=== PATIENT | male | born 1945 | race Hispanic/Latino ===

== ENCOUNTER 2017-11-08 08:40 | Inpatient (IN) | payer OTHER ==
[2017-11-08 09:39] LABS: Protime INR 1.04
[2017-11-08 09:44] LABS: Potassium 5.3 mEq/L (3.6-5.0)
[2017-11-08 09:50] LABS: Albumin 2.6 g/dL (3.2-5.5); Bilirubin Direct 0.1 mg/dL (0-0.2); Bilirubin Total 0.5 mg/dL (0.3-1.2); Magnesium 2.2 mg/dL (1.8-2.5); Protein, Total 7.1 g/dL (6.0-8.3)
[2017-11-08 09:51] LABS: CKMB Creatine Kinase MB 3.5 ng/ml (0.3-4.0)
[2017-11-08 10:06] LABS: Absolute Lymphocytes (CBC) 0.5 K/uL (0.7-4.9); Absolute Monocytes 0.9 K/uL (0.1-1.3); Basophils % 0.5 % (0-1.3); Eosinophils % 2.2 % (0-4.4); Hematocrit 28.5 % (39.6-49.0); Lymphocytes % 5.4 % (15.3-44.8); MCH 25.7 pg (27.0-35.0); MCV 81.3 fL (80-100); Monocytes % 9.6 % (3.3-12.3); RBC Red Blood Cell Count 3.51 M/uL (4.33-5.43)
[2017-11-08] MEDS ORDERED: ASPIRIN 81 MG CHEWABLE TABLET ONE (10:24)
[2017-11-08] MEDS ORDERED: FUROSEMIDE 20 MG/ 2ML VIAL ONE ×2 (10:25→11:13)
[2017-11-08] MEDS ORDERED: NITROGLYCERIN 1 GM PKT TD ONE (10:25)
--- NOTE | 2017-11-08 10:42 | RAD REPORT ---
EXAM DESCRIPTION: RAD - Chest Single View - 11/08/2017 9:30 am CLINICAL HISTORY: Shortness of breath COMPARISON: 10/22/2015 FINDINGS: Portable technique limits examination quality. Soft tissue density along the right thoracic cage is probably related to right pleural fluid or right pleural thickening. Mild interstitial pulmonary edema seen. Heart is moderately enlarged in size.
[2017-11-08 10:45] LABS: MPV 8.3 fL (7.6-11.3)
[2017-11-08 10:46] LABS: Blood Morphology Comment NOT SEEN (NOT SEEN); Platelet Estimate ADEQ; Urine White Blood Cell Casts OK
--- NOTE | 2017-11-08 11:14 | ER ---
Nurse's Notes [facility] Name: Garth Lane Age: 72 yrs Sex: Male : 1945 Arrival Date: 11/08/2017 Time: 08:45 Bed 8 Private MD: Diagnosis: Acute kidney failure;Acute pulmonary edema Presentation: 11/08 08:46 Presenting complaint: Patient states: vomiting Tuesday, not feeling well. very tired, ch not hungry and gets sob and weak easily. Transition of care: patient was not received from another setting of care. Onset of symptoms was November 05, 2017. Care prior to arrival: None. 08:46 Method Of Arrival: Wheelchair ch 08:46 Acuity: MARIO 3 ch 09:00 Initial Sepsis Screen: Does the patient meet any 2 criteria? No. Patient's initial sg sepsis screen is negative. Does the patient have a suspected source of infection? No. Patient's initial sepsis screen is negative. Triage Assessment: 08:50 General: Appears in no apparent distress. comfortable, Behavior is calm, cooperative, ch appropriate for age. Pain: Denies pain. 09:00 Respiratory: Reports shortness of breath the patient has mild shortness of breath. sg 09:00 Respiratory: Onset: The symptoms/episode began/occurred gradually. sg Historical: - Allergies: 08:50 No Known Allergies; ch - Home Meds: 08:50 alendronate 35 mg oral tab once wkly [Active]; meloxicam 7.5 mg oral tab 1 tab once ch daily [Active]; pantoprazole 40 mg oral TbEC 1 tab once daily [Active]; - PMHx: 08:50 GERD; Hypertension; prostate cancer; remission now; punctured lung, fx hip, fx ribs, ch skull fx after fall 2011.; - PSHx: 08:50 prostate radiation, prostate sx-green light; Cholecystectomy; r hip; ch - Immunization history:: Adult Immunizations up to date, Flu vaccine is up to date. - Social history:: Smoking status: Patient/guardian denies using tobacco, Patient uses alcohol, occasionally. Patient/guardian denies using street drugs, Patient/guardian denies using alcohol. - Family history:: not pertinent. Screenin:00 Abuse screen: Denies threats or abuse. Denies injuries from another. Nutritional sg screening: No deficits noted. Tuberculosis screening: No symptoms or risk factors identified. Never had TB. Fall Risk None identified. Assessment: 09:00 General: Appears in no apparent distress. comfortable, well groomed, well developed, sg well nourished, Behavior is calm, cooperative, appropriate for age. Pain: Denies pain. Neuro: Level of Consciousness is awake, alert, obeys commands, Oriented to person, place, time, situation, Business Transformation Manager are equal bilaterally Moves all extremities. Speech is normal, Facial symmetry appears normal. Cardiovascular: Heart tones S1 S2 present Capillary refill is brisk in bilateral fingers Chest pain is denied. Cardiovascular: Edema noted to abdomen, face, and legs, and arms, possible anasarca. Respiratory: Airway is patent Respiratory effort is even, unlabored, Respiratory pattern is regular, symmetrical, Breath sounds are clear. GI: No signs and/or symptoms were reported involving the gastrointestinal system. : No signs and/or symptoms were reported regarding the genitourinary system. EENT: No signs and/or symptoms were reported regarding the EENT system. Derm: Skin is normal. Musculoskeletal: No signs and/or symptoms reported regarding the musculoskeletal system. 09:00 Cardiovascular: Rhythm is sinus rhythm. sg 10:00 Reassessment: Patient appears in no apparent distress at this time. Patient and/or sg family updated on plan of care and expected duration. Pain level reassessed. Patient is alert, oriented x 3, equal unlabored respirations, skin warm/dry/pink. Respiratory: Reports shortness of breath at rest Airway is patent Respiratory effort is even, unlabored, Respiratory pattern is regular, symmetrical. Derm: Skin is normal. 11:00 Reassessment: Patient appears in no apparent distress at this time. No changes from sg previously documented assessment. Patient and/or family updated on plan of care and expected duration. Pain level reassessed. Patient is alert, oriented x 3, equal unlabored respirations, skin warm/dry/pink. 12:00 Reassessment: Patient appears in no apparent distress at this time. Patient and/or sg family updated on plan of care and expected duration. Pain level reassessed. Patient is alert, oriented x 3, equal unlabored respirations, skin warm/dry/pink. 13:00 Reassessment: Patient appears in no apparent distress at this time. Patient and/or sg family updated on plan of care and expected duration. Pain level reassessed. Patient is alert, oriented x 3, equal unlabored respirations, skin warm/dry/pink. 14:00 Reassessment: Patient appears in no apparent distress at this time. Patient and/or sg family updated on plan of care and expected duration. Pain level reassessed. Patient is alert, oriented x 3, equal unlabored respirations, skin warm/dry/pink. awaiting admitting physician evaluation, awaiting admission orders at this time. 14:00 Reassessment: pt denies having to use the restroom at this time, no urine output noted, sg notified, awaiting admission physician evaluation at this time. Vital Signs: 08:50 BP 167 / 95; Pulse 86; Resp 22; Temp 97.5; Pulse Ox 98% on R/A; Weight 81.65 kg; Height 5 ft. 2 in. (157.48 cm); Pain 0/10; 10:37 BP 164 / 90; Pulse 84 MON; Resp 20 S; Pulse Ox 98% on R/A; Pain 0/10; sg 11:34 BP 168 / 92; Pulse 82; Resp 21; Pulse Ox 98% on R/A; bm6 13:00 BP 172 / 101; Pulse 84; Resp 20; Pulse Ox 99% on R/A; bm6 14:25 BP 168 / 90; Pulse 77; Resp 20; Pulse Ox 100% on R/A; bm6 15:15 BP 169 / 89; Pulse 80; Resp 17 S; Temp 97.6; Pulse Ox 98% on 2 lpm NC; Pain 0/10; sg 08:50 Body Mass Index 32.92 (81.65 kg, 157.48 cm) ED Course: 08:45 Patient arrived in ED. sb2 08:47 Triage completed. 08:50 Arm band placed on left wrist. Patient placed in an exam room, on a stretcher. 08:54 Bill Chou MD is Attending Physician. ma2 09:00 Patient has correct armband on for positive identification. Bed in low position. Call sg light in reach. Side rails up X2. security monitor on. Pulse ox on. NIBP on. Warm blanket given. Head of bed elevated. 09:00 No provider procedures requiring assistance completed. 09:18 Inserted saline lock: 22 gauge in right hand, using aseptic technique. Blood collected. bm6 09:30 X-ray completed. Portable x-ray completed in exam room. Patient tolerated procedure mh1 well. 09:30 XRAY Chest (1 view) In Process Unspecified. EDMS 10:08 Notified ED physician of a critical lab result(s). Creatinine 5.26. dm5 10:23 Teja Ordaz, RN is Primary Nurse. sg 11:08 Alex Galicia DO is Hospitalizing Provider. ma2 15:30 Patient admitted, IV remains in place. intact, No redness/swelling at site. sg Administered Medications: 10:30 Drug: Nitroglycerin Ointment 2 % 1 inches Route: Transdermal; Site: anterior chest wall;sg 10:30 Drug: Lasix 20 mg Route: IVP; Site: right hand; sg 11:20 Follow up: Response: No adverse reaction sg 10:30 Drug: Aspirin Chewable Tablet 324 mg Route: PO; sg 11:00 Follow up: Response: No adverse reaction sg 15:12 Drug: Lasix 20 mg Route: IVP; Site: right hand; sg 15:30 Follow up: Response: No adverse reaction sg Output: 15:30 Urine: 0ml; Total: 0ml. sg Outcome: 11:13 Decision to Hospitalize by Provider. ma2 15:28 Admitted to Med/surg accompanied by tech, via wheelchair, room 430, with chart, Report sg called to Nandini PATE 15:28 Condition: stable 15:28 Instructed on the need for admit, safety practices, Demonstrated understanding of instructions. 15:36 Patient left the ED. sg Signatures: Dispatcher [employer] EDGA Lakia Carl, RN RIO Renetta Kunz RN RN dm5 Teja Ordaz, RIO PATE sg Angela Dover mh1 Pal Farr bm6 Bill Chou MD MD ma2 Dalia Price sb2 Corrections: (The following items were deleted from the chart) 10:09 10:08 Notified ED physician of a critical lab result(s). Creatinine 5.6 dm5 dm5
--- NOTE | 2017-11-08 11:14 | EDPHYS ---
Physician Documentation [facility] Name: Garth Lane Age: 72 yrs Sex: Male : 1945 Arrival Date: 11/08/2017 Time: 08:45 Bed 8 Private MD: ED Physician Bill Chou HPI: 11/08 09:04 This 72 yrs old Male presents to ER via Wheelchair with complaints of ma2 Shortness Of Breath. 09:04 The patient has shortness of breath at rest. Onset: The symptoms/episode began/occurred ma2 gradually, 3 day(s) ago. Duration: The symptoms are continuous. The patient's shortness of breath has no apparent modifying factors, is aggravated by is alleviated by. Associated signs and symptoms: Pertinent positives: non-productive cough, generalized anasarca LE edema and facial edema, ascites . Severity of symptoms: At their worst the symptoms were moderate in the emergency department the symptoms are unchanged. The patient has not experienced similar symptoms in the past. Historical: - Allergies: 08:50 No Known Allergies; ch - Home Meds: 08:50 alendronate 35 mg oral tab once wkly [Active]; meloxicam 7.5 mg oral tab 1 tab once ch daily [Active]; pantoprazole 40 mg oral TbEC 1 tab once daily [Active]; - PMHx: 08:50 GERD; Hypertension; prostate cancer; remission now; punctured lung, fx hip, fx ribs, ch skull fx after fall 2011.; - PSHx: 08:50 prostate radiation, prostate sx-green light; Cholecystectomy; r hip; ch - Immunization history:: Adult Immunizations up to date, Flu vaccine is up to date. - Social history:: Smoking status: Patient/guardian denies using tobacco, Patient uses alcohol, occasionally. Patient/guardian denies using street drugs, Patient/guardian denies using alcohol. - Family history:: not pertinent. ROS: 09:04 Cardiovascular: Positive for ma2 09:04 Cardiovascular: Positive for edema, orthopnea. 09:04 Respiratory: Positive for dyspnea on exertion, orthopnea, shortness of breath. 09:04 Abdomen/GI: Positive for 09:04 : Positive for Negative for 09:04 All other systems are negative. 11:13 Skin: Negative for injury, rash, and discoloration. ma2 Exam: 09:04 Constitutional: This is a well developed, well nourished patient who is awake, alert, ma2 and in no acute distress. Head/Face: Normocephalic, atraumatic. Chest/axilla: Normal chest wall appearance and motion. Nontender with no deformity. No lesions are appreciated. Respiratory: Lungs have equal breath sounds bilaterally, clear to auscultation and percussion. No rales, rhonchi or wheezes noted. No increased work of breathing, no retractions or nasal flaring. Back: No spinal tenderness. No costovertebral tenderness. Full range of motion. Male : Normal genitalia with no discharge or lesions. 09:04 Neuro: Awake and alert, GCS 15, oriented to person, place, time, and situation. Cranial nerves II-XII grossly intact. Motor strength 5/5 in all extremities. Sensory grossly intact. Cerebellar exam normal. Normal gait. 09:04 Cardiovascular: Rate: normal, Edema: 3+ edema to level of waist, left lower thigh, left midcalf, left ankle, right lower thigh, right midcalf and right ankle, JVD: is not appreciated. 09:04 Respiratory: mild respiratory distress is noted, Breath sounds: are clear throughout. Vital Signs: 08:50 BP 167 / 95; Pulse 86; Resp 22; Temp 97.5; Pulse Ox 98% on R/A; Weight 81.65 kg; Height ch 5 ft. 2 in. (157.48 cm); Pain 0/10; 10:37 BP 164 / 90; Pulse 84 MON; Resp 20 S; Pulse Ox 98% on R/A; Pain 0/10; sg 11:34 BP 168 / 92; Pulse 82; Resp 21; Pulse Ox 98% on R/A; bm6 13:00 BP 172 / 101; Pulse 84; Resp 20; Pulse Ox 99% on R/A; bm6 14:25 BP 168 / 90; Pulse 77; Resp 20; Pulse Ox 100% on R/A; bm6 15:15 BP 169 / 89; Pulse 80; Resp 17 S; Temp 97.6; Pulse Ox 98% on 2 lpm NC; Pain 0/10; sg 08:50 Body Mass Index 32.92 (81.65 kg, 157.48 cm) MDM: 08:54 Patient medically screened. ma2 09:04 Differential diagnosis: Anemia CHF exacerbation, Myocardial Infarction pulmonary edema, ma2 ARF, nephrotic syndrome. The patient's Wells Deep Vein Thrombosis Score was calculated as follows:. The patient's pulmonary embolism risk score was calculated as follows: Total Score: 0-2 points. This patient was found to be at low risk for a pulmonary embolism by using the Well's assessment criteria. 11:06 Data reviewed: vital signs, nurses notes. Counseling: I had a detailed discussion with [facility] the patient and/or guardian regarding: the historical points, exam findings, and any diagnostic results supporting the discharge/admit diagnosis, the need for further work-up and treatment in the hospital. ED course: patient has acute CHF and acute renal failure, started on O2 2 L NC, lasix, ASA and nitroglycerine . 11/08 09:04 Order name: Basic Metabolic Panel; Complete Time: 10:25 ma2 11/08 09:04 Order name: BNP; Complete Time: 10:44 ma2 11/08 09:04 Order name: CBC with Diff; Complete Time: 10:50 ma2 11/08 09:04 Order name: Ckmb; Complete Time: 10:25 ma2 11/08 09:04 Order name: CPK; Complete Time: 10:25 ma2 11/08 09:04 Order name: LFT's; Complete Time: 10:25 ma2 11/08 09:04 Order name: Magnesium; Complete Time: 10:25 ma2 11/08 09:04 Order name: PT-INR; Complete Time: 10:03 ma2 11/08 09:04 Order name: Ptt, Activated; Complete Time: 10:03 ma2 11/08 09:04 Order name: Troponin (emerg Dept Use Only); Complete Time: 10:03 ma2 11/08 09:04 Order name: XRAY Chest (1 view); Complete Time: 10:44 ma2 11/08 10:17 Order name: CBC Smear Scan; Complete Time: 10:50 EDMS 11/08 15:07 Order name: US EDMS 11/08 09:04 Order name: EKG; Complete Time: 09:05 ma2 11/08 09:04 Order name: Cardiac monitoring; Complete Time: 10:36 ma2 11/08 09:04 Order name: EKG - Nurse/Tech; Complete Time: 10:37 ma2 11/08 09:04 Order name: IV Saline Lock; Complete Time: 10:37 [facility] 11/08 09:04 Order name: Labs collected and sent; Complete Time: 10: il11/08 09:04 Order name: O2 Per Protocol; Complete Time: 10:37 11/08 09:04 Order name: O2 Sat Monitoring; Complete Time: 10:37 [facility] 11/08 10:29 Order name: Diet Heart Healthy; Complete Time: 10:29 ag Administered Medications: 10:30 Drug: Nitroglycerin Ointment 2 % 1 inches Route: Transdermal; Site: anterior chest wall; 10:30 Drug: Lasix 20 mg Route: IVP; Site: right hand; sg 11:20 Follow up: Response: No adverse reaction sg 10:30 Drug: Aspirin Chewable Tablet 324 mg Route: PO; sg 11:00 Follow up: Response: No adverse reaction sg 15:12 Drug: Lasix 20 mg Route: IVP; Site: right hand; sg 15:30 Follow up: Response: No adverse reaction sg Disposition: 11/08/17 11:13 Hospitalization ordered by Alex Galicia for Inpatient Admission. Preliminary diagnosis are Acute kidney failure, Acute pulmonary edema. - Bed requested for Telemetry/MedSurg (Inpatient). - Status is Inpatient Admission. sg - Condition is Stable. - Problem is new. - Symptoms are unchanged. UTI on Admission? No Signatures: Dispatcher [employer] EDLakia Garcia, RIO PATE Keesha Monet RN RN Teja Ordaz RN RN Bill Chou MD MD ma2
[2017-11-08] MEDS ORDERED: ONDANSETRON 4 MG/2 ML VIAL IV PRN (14:06)
--- NOTE | 2017-11-08 14:22 | P.HP ---
Certification for Inpatient With expected LOS: >2 Midnights Patient will require the following post-hospital care: None Practitioner: I am a practitioner with admitting privileges, knowledge of patient current condition, hospital course, and medical plan of care. Services: Services provided to patient in accordance with Admission requirements found in Title 42 Section 412.3 of the Code of Federal Regulations Patient History Date of Service: 11/08/17 Reason for admission: swelling History of Present Illness: 72 year old male with history of hypertension, BPH who presented with 2 days of increasing swelling all over his body.Patient reports that swelling started on his lower extremities but has progressed to his stomach and up to his face.He has noticed a decrease in his urine otherwise does not have any dysuria, frequency or urgency.He reports associated cough productive of whitish sputum but denies any SOB, fever, chills, rash or chest pain. He denies any chronic NSAID use, no recent OTC use, no urinary symptoms. Allergies No Known Allergies Allergy (Verified 10/15/15 13:32) Home medications list reviewed: Yes Home Medications: Finasteride [Proscar*] 5 mg PO DAILY 10/15/15 Lisinopril [Prinivil*] 20 mg PO DAILY 10/15/15 Tamsulosin HCl [Flomax] 0.4 mg PO DAILY 10/15/15 Bicalutamide [Casodex] 50 mg PO DAILY 10/21/15 Dexlansoprazole [Dexilant] 60 mg PO DAILY 10/21/15 - Past Medical/Surgical History Has patient received pneumonia vaccine in the past: No Diabetic: No -: Hypertension -: Benign prostatic hypertrophy -: gout -: prostate CA -: [place] -: R hip sx with pins - Family History Family History: Reviewed- Non-Contributory - Family History Mother -: Heart disease, Diabetes Brother -: Hypertension, Diabetes Sister -: Hypertension, Cancer - Social History Alcohol use: No CD- Drugs: No Caffeine use: Yes Review of Systems General: Unremarkable Eyes: Unremarkable ENT: Unremarkable Respiratory: Cough Cardiovascular: Unremarkable Gastrointestinal: Distention, As per HPI Genitourinary: As per HPI Physical Examination - Physical Exam General: Alert, In no apparent distress, Oriented x3, Cooperative HEENT: Atraumatic, Normocephalic, PERRLA, EOMI Neck: Supple Cardiovascular: No edema, Normal pulses, Regular rate/rhythm, Normal S1 S2, No gallops, No rubs, No murmurs, Edema Gastrointestinal: Normal bowel sounds, Soft and benign, W/out hepatosplenomegaly , No tenderness, No masses, No rebound, No guarding, Distended Musculoskeletal: No contractures, No erythema, No tenderness, No warmth, Swelling Integumentary: No rashes, No breakdown, No significant lesion Neurological: Normal speech, Normal tone, Cranial nerves 3-12 intact - Studies Laboratory Data (last 24 hrs) 11/08/17 09:14: PT 12.3, INR 1.04, APTT 29.6 11/08/17 09:14: WBC 9.8, Hgb 9.0 L, Hct 28.5 L, Plt Count 289 11/08/17 09:14: B-Natriuretic Peptide 1618 H 11/08/17 09:14: Sodium 130 L, Potassium 5.3 H, BUN 90 H, Creatinine 5.26 H*, Glucose 123 H, Magnesium 2.2, Total Bilirubin 0.5, AST 25, ALT 36, Alkaline Phosphatase 82 Assessment and Plan - Problems (Diagnosis) (1) Acute renal failure Current Visit: Yes Status: Acute Plan: will place a muller and monitor I/O consult 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 trainer maintenance worker check UA, urine micro check renal ultrasound monitor bun/cr renally dose meds check TTE start lasix iv Qualifiers: Acute renal failure type: unspecified Qualified Code(s): N17.9 - Acute kidney failure, unspecified (2) Hyperkalemia Current Visit: Yes Status: Acute Plan: will admit on telemetry will give kayexelate hold lisinopril repeat labs Discharge Plan: Home Plan to discharge in: Greater than 2 days - Advance Directives Does patient have a Living Will: Yes Does patient have a Durable POA for Healthcare: Yes Physician Review: Patient Assessed, Agree with Above Assessment and Plan Critical Care: No Time Spent Managing Pts Care (In Minutes): 40
--- NOTE | 2017-11-08 14:37 | EKG ---
Test Date: 2017-11-08 Test Time: 09:26:51 Service Station Attendant: GRICELDA MEASUREMENT RESULTS: Intervals: Rate: 88 FL: 114 QRSD: 124 QT: 382 QTc: 462 [employer]: P: 10 FL: 114 QRS: 81 T: 27 INTERPRETIVE STATEMENTS: Sinus rhythm with occasional premature ventricular complexes and premature atrial complexes Right bundle branch block Abnormal ECG No previous ECG available for comparison Electronically Signed On 11-08-17 14:34:01 CDT by Dustin López
[2017-11-08] MEDS ORDERED: SOD POLYSTYREN SUL 15 GM/60 ML UCUP PO ONE (15:00)
--- NOTE | 2017-11-08 15:06 | RAD REPORT ---
EXAM DESCRIPTION: US - Renal Ultrasound-Complete - 11/08/2017 2:54 pm CLINICAL HISTORY: Renal insufficiency. COMPARISON: 04/26/2017, 11/26/2015 FINDINGS: Both kidneys are echogenic with reduced corticomedullary differentiation. The right kidney measures 12.2 x 6.0 x 5.9 cm. No hydronephrosis. The left kidney measures 13.0 x 6.7 x 6.0 cm.. No hydronephrosis. IMPRESSION: Bilateral echogenic kidneys are present compatible with underlying medical renal disease .
[2017-11-08 16:08] LABS: CKMB Creatine Kinase MB 4.3 ng/ml (0.3-4.0)
[2017-11-08 16:28] LABS: UR CREAT 168.7 mg/dL
[2017-11-08 16:48] LABS: Urine Appearance CLOUDY; Urine Bilirubin NEGATIVE (NEG); Urine Blood 3+ (NEG); Urine Color YELLOW; Urine Glucose NEGATIVE (NEG); Urine Protein 3+ (NEG); Urine Urobilinogen 0.2 mg/dL (0.2-1.0)
[2017-11-08 16:51] LABS: Urine Microscopic Reflex ORDER UMIC
[2017-11-08] MEDS ORDERED: FUROSEMIDE 40 MG/4 ML VIAL IV SCH (17:00)
[2017-11-08 17:07] LABS: Urine Bacteria <20 /HPF (NONE SEEN); Urine Coarse Granular Casts 0-5 /LPF (NONE SEEN); Urine Culture Reflex Order REFLEXED; Urine RBC >50 /HPF (NONE SEEN)
[2017-11-08 17:08] LABS: Urine Waxy Casts 0-5 /LPF (NONE SEEN)
[2017-11-08 17:25] LABS: A1c Component 0.42 mg/dL; Hemoglobin A1c 6.2 % (4-6.0)
[2017-11-08] MEDS: TAMSULOSIN 0.4 MG SR CAP PO SCH (17:50)
[2017-11-08] MEDS: FUROSEMIDE 100 MG/10 ML VIAL IV SCH (17:50)
[2017-11-08] MEDS: HEPARIN 5000 UNIT/ML 1 ML VIAL SQ SCH (21:44)
[2017-11-08 23:43] LABS: CKMB Creatine Kinase MB 4.2 ng/ml (0.3-4.0)
--- NOTE | 2017-11-09 04:54 | CON ---
Date of Consultation: 11/08/2017 Additional Consulting Physician: Dr. Elvira Vergara. Reason For Consultation: Elevated BUN and creatinine, hyperkalemia, anasarca. History Of Present Illness: This is a pleasant 72-year-old gentleman with significant past medical history of benign prostate hypertrophy, prostate cancer , status post radiation 2 years back on hormonal injection, obstructive sleep apnea, and hypertension. The patient was in his regular state of health, in the last couple of weeks started having increased leg swelling extending from his lower extremity up to his thigh and abdomen. For that reason, he reported to the emergency room. A primary workup in the emergency room found that he has anemia and he has anasarca with the elevated BNP and hyperkalemia with acute kidney injury, creatinine up to 5. Reviewing the record, the patient back in April 2017, normal kidney function. The patient apparently being taking meloxicam on a daily basis with Aleve occasionally. The patient has nocturnal urea, has hesitancy. No hematuria. No flank pain. No nausea. No vomiting, but has significant shortness of breath. No IV contrast. Reviewing the record for the patient, meloxicam as medication. No IV contrast. No other insult. Past Medical History: Includes, 1. Hypertension. 2. Prostate cancer, status post radiation therapy, on hormonal therapy. 3. Obstructive sleep apnea. Home Medications: Include; 1. Flomax. 2. Finasteride. 3. Dexaltin. 4. Casodex. 5. Zofran. Current Medications: Include heparin, Zofran, lisinopril, and Flomax. Family History: Positive for diabetes and hypertension. Social History: Denies smoking, denies drinking, and denies drugs abuse. Past Surgical History: Includes hip surgery, prostate surgery. Review of Systems: Head and Neck: No red eye. No ear pain. GI: No nausea, no vomiting. : Has nocturnal urea. No hematuria. LIGHT COIL WINDER: Not applicable. Respiratory: Has shortness of breath. Cardiovascular: Has anasarca. Endocrine: No polydipsia. Skin: No rash. Neuro: Has low back pain. Musculoskeletal: Low back pain. Physical Examination: Vital Signs: When I saw the patient, blood pressure of 182/94, pulse of 84, afebrile. Chest: Crackles bilateral. Heart: S1, S2. Systolic murmur. Abdomen: Soft, nontender. Extremities: A +3 edema. Laboratory Data: Reviewing the record for the patient back in April 2017; creatinine 0.9, GFR of 74. Latest lab data on this admission: WBC 9.8, H and H 9/28.5, and platelets 289. Sodium 130, potassium 5.3, bicarb 21, chloride 100 , BUN 90, creatinine 5.2, GFR of 11, calcium 7.4, and magnesium 2.2. Albumin of 2.6, corrected calcium 8.5. TSH of 3. Urinalysis: Specific gravity of 1.020, +3 blood, RBC of 50, and WBC of 50. Urine sodium 11, chloride is 15, and +3 protein. Renal ultrasound showing normal-size kidney, 12.2 x 13, bilateral, echogenic, without any hydronephrosis. Chest x-ray showing cardiomegaly. BNP 1600. Assessment And Plan: Acute kidney injury secondary to ADELA; nonsteroidal use, meloxicam; over volume; marginal hyperkalemia; marginal acidosis; no uremia. 1. I am going to go ahead and send for full workup. I had long discussion with the patient in the presence of the family that we are going to try with aggressive diuresis to evaluate the patient. If kidney function did not improve or patient persists to be has over volume, I am going to go ahead and initiate dialysis. The patient verbalized understanding, agreed on the plan. I am going to go ahead and increase the Lasix to 80 mg twice a day. We will place the patient on nitroglycerin and we will follow up. I am going to send for full workup to rule out any nephritis. 2. Hypertension, uncontrolled. We will utilize the blood pressure for more diuresis. We will start the patient on nitroglycerin and we will follow up. I am going to go ahead and get echocardiogram given the cardiomegaly. 3. Over volume. Possible cardiorenal. 4. Protein uric. We will quantify the proteinuria. We will send him for serology. 5. Anemia of chronic kidney disease with the presence of renal failure. Light chain disease needs to be ruled out. I am going to go ahead and send for anemia workup, SPEP and UPEP and we will follow up. 6. Marginal hyperkalemia secondary to DOLORES inhibitor and renal failure. DC DOLORES inhibitor. We will send for the workup. We will follow up after diuresis. 7. Hyponatremia. Secondary to renal failure, dilutional. We will send for cortisol. TSH within normal limit for the time being. Case was discussed with the patient and family by bedside, verbalized understanding. Discussed with Dr. Vergara, hospitalist. Time Spend: 65 minutes. MISSAEL Voice ID: [id number] Report ID: [id number] MTDMatheus
[2017-11-09] MEDS: CARVEDILOL 3.125 MG TAB PO SCH ×2 (05:38→18:08)
[2017-11-09 06:52] LABS: CKMB Creatine Kinase MB 4.2 ng/ml (0.3-4.0)
[2017-11-09 07:10] LABS: Absolute Lymphocytes (CBC) 0.5 K/uL (0.7-4.9); Absolute Monocytes 0.7 K/uL (0.1-1.3); Absolute Neutrophil 10.1 K/uL (1.8-8.0); Basophils % 1.5 % (0-1.3); Eosinophils % 1.5 % (0-4.4); Hematocrit 26.7 % (39.6-49.0); Lymphocytes % 4.6 % (15.3-44.8); MCH 25.6 pg (27.0-35.0); MCV 80.7 fL (80-100); Monocytes % 6.2 % (3.3-12.3); RBC Red Blood Cell Count 3.31 M/uL (4.33-5.43)
[2017-11-09 07:12] LABS: Albumin 2.4 g/dL (3.2-5.5); BUN Blood Urea Nitrogen 94 mg/dL (6-20); Blood Morphology Comment NOT SEEN (NOT SEEN); Ferritin 84.1 ng/ml (23.9-336.2); Glucose Level 111 mg/dL (65-120); HDL Cholesterol 43 mg/dL (27-67); LDL Cholesterol, Calculated 86 (<130); Magnesium 2.2 mg/dL (1.8-2.5); Phosphorus 8.3 mg/dL (2.5-4.3); Platelet Estimate ADEQ; Transferrin 165 mg/dL (180-329); Urine White Blood Cell Casts OK
[2017-11-09 07:13] LABS: Bicarbonate 22 mEq/L (21-31); Sodium Level 131 mEq/L (135-145)
[2017-11-09 07:14] LABS: Folic Acid, (Folate) > 22.3 ng/ml (>5.21)
[2017-11-09 07:15] LABS: Potassium 5.8 mEq/L (3.6-5.0)
[2017-11-09] MEDS ORDERED: D50W 25 GM/50 ML SYRINGE IV ONE (07:28)
[2017-11-09] MEDS ORDERED: ALBUTEROL 2.5 MG/3 ML NEB SOL NEB ONE (07:28)
[2017-11-09] MEDS ORDERED: INSULIN -REGULAR HUMAN 50 UNIT/0.5 ML ML IV ONE (07:29)
[2017-11-09] MEDS ORDERED: GLUCAGON 1 MG/VIAL IM PRN (07:29)
[2017-11-09] MEDS ORDERED: D50W 25 GM/50 ML SYRINGE IV PRN (07:29)
[2017-11-09] MEDS ORDERED: CALCIUM GLUC 10% INJ 4.65 MEQ in NA CHLORIDE 0.9% 100 ML IV ONE (07:30)
[2017-11-09] MEDS: FUROSEMIDE 100 MG/10 ML VIAL IV SCH ×2 (07:56→18:09)
[2017-11-09] MEDS: HEPARIN 5000 UNIT/ML 1 ML VIAL SQ SCH ×2 (09:00→20:17)
[2017-11-09] MEDS: TAMSULOSIN 0.4 MG SR CAP PO SCH (09:00)
[2017-11-09] MEDS: NITROGLYCERIN 0.4 MG/HR (10 MG) PATCH TD SCH (09:00)
[2017-11-09] MEDS ORDERED: NA CHLORIDE 0.9% 500 ML ONE (10:43)
[2017-11-09] MEDS ORDERED: NS 0.9% VIAL 0 ML ONE (10:47)
[2017-11-09] MEDS ORDERED: HEPARIN 5000 UNIT/ML 1 ML VIAL ONE (10:47)
[2017-11-09] MEDS ORDERED: NA CHLORIDE 0.9% 100 ML IV ONE (10:47)
[2017-11-09] MEDS ORDERED: LIDOCAINE 1% 20 ML MDV ONE (10:48)
[2017-11-09] MEDS ORDERED: CEFAZOLIN/SWI 1gm 0 GM/0 ML SYR ONE (11:12)
[2017-11-09] MEDS ORDERED: CEFAZOLIN/SWI 1gm 1 GM/10 ML SYR ONE (11:17)
--- NOTE | 2017-11-09 12:06 | P.OP ---
Preoperative diagnosis: ARF, Hyperkalemia Postoperative diagnosis: same Primary procedure: PHYLICIA Moran Secondary procedure: Fluroscopy Anesthesia: local Estimated blood loss: min Specimen: none Findings: Nl Anatomy Complications: None Transferred to: Recovery Room Condition: Good
--- NOTE | 2017-11-09 12:38 | ECHO ---
HEIGHT: 5 ft 2 in WEIGHT: 180 lb 0 oz DATE OF STUDY: 11/09/[address]: 2-DIMENSIONAL: YES M.MODE: YES DOPPLER: YES COLOR FLOW: YES TDS: NO PORTABLE: NO DEFINITY: NO BUBBLE STUDY: NO DIAGNOSIS: FLUID OVERLOAD CARDIAC HISTORY: CATHERIZATION: YES SURGERY: CABG PROSTHETIC VALVE: NO PACEMAKER: NO MEASUREMENTS (cm) DIASTOLIC (NORMALS) SYSTOLIC (NORMALS) IVSd 1.3 (0.6-1.2) LA Diam 4.0 (1.9-4.0) LVEF 57% LVIDd 4.5 (3.5-5.7) LVIDs 3.1 (2.0-3.5) %FS 29% LVPWd 1.3 (0.6-1.2) Ao Diam 3.1 (2.0-3.7) 2 DIMENSIONAL ASSESSMENT: RIGHT ATRIUM: DILATED LEFT ATRIUM: DILATED RIGHT VENTRICLE: NORMAL LEFT VENTRICLE: LEFT VENTRICULAR HYPERTROPHY TRICUSPID VALVE: NORMAL MITRAL VALVE: NORMAL PULMONIC VALVE: NORMAL AORTIC VALVE: NORMAL PERICARDIAL EFFUSION: NONE AORTIC ROOT: NORMAL LEFT VENTRICULAR WALL MOTION: NORMAL DOPPLER/COLOR FLOW: MILD MITRAL REGURGITATION AND TRICUSPID. ESTIMATED RIGHT VENTRICULAR SYSTOLIC PRESSURE 40 MMHG. MILD PULMONARY HYPERTENSION. COMMENTS: NORMAL LEFT VENTRICULAR EJECTION FRACTION. LEFT VENTRICULAR HYPERTROPHY. DILATED LEFT ATRIUM AND RIGHT ATRIUM. MILD MITRAL AND TRICUSPID REGURGITATION. MILD PULMONARY HYPERTENSION. TECHNOLOGIST: CICI WILEY RDCS
--- NOTE | 2017-11-09 12:38 | RAD REPORT ---
EXAM DESCRIPTION: RAD - Fluoroscopy <1 Hour - 11/09/2017 12:30 pm CLINICAL HISTORY: Venous catheter insertion. COMPARISON: None. FINDINGS: Fluoroscopic imaging is submitted from placement of a venous catheter. Details of the pro cedure not available.
--- NOTE | 2017-11-09 12:47 | RAD REPORT ---
EXAM DESCRIPTION: RAD - Chest Single View - 11/09/2017 12:40 pm CLINICAL HISTORY: Venous catheter placement. COMPARISON: None. FINDINGS: Portable technique limits examination quality. Right-sided venous catheter in place with tip in the SVC. No pneumothorax is present.
--- NOTE | 2017-11-09 15:03 | CON ---
History Of Present Illness: Mr. Lane was in his usual state of health until the last few weeks when he started having a lot of shortness of breath. He came to the hospital and was found to have pulmo nary edema and renal failure. His chest x-ray shows interstitial pulmonary edema and pleural effusio ns, right larger than the left. Mr. Lane has never had any heart trouble. He was not having chest pain, but he has orthopnea, severe dyspnea on exertion, and paroxysmal nocturnal dyspnea. Physical Examination: General: He is alert, oriented, pleasant, appears to be his stated age. Vital Signs: Blood pressure 133/69, heart rate 68. Laboratory Data: Creatinine is 4.96, hemoglobin 8.5, potassium 5.8. All of his troponins are 0.05, there is no rise and fall pattern, nothing higher than. Impression: This is not an acute coronary syndrome. I doubt if it is congestive heart failure. I d o believe an echocardiogram will be done soon, if it has not already, it has not been interpreted yet , so we will make sure we see whether there is a cardiac component to it, and that all of his finding s are seemingly related to the renal failure and retention of fluid. We will get dialysis today and get an echocardiogram today. AVTAR/BRIGIDA Voice ID: [id number] Report ID: [id number]
--- NOTE | 2017-11-09 16:38 | PREOPCON ---
Date of Consultation: 11/09/2017 Reason: The patient needs urgent dialysis. History Of Present Illness: The patient is a 72-year-old gentleman, who came in with hyperkalemia, a nasarca, elevated BUN and creatinine. His potassium was 5.8 and he needs urgent dialysis, therefore I was consulted for Dean catheter placement. He is awake and alert. No fever or chills. Review of Systems: Otherwise unremarkable. Past Medical History: Hypertension, prostate cancer, obstructive sleep apnea. Past Surgical History: Prostate surgery, cholecystectomy, right hip surgery. Allergies: NO ALLERGIES. Social History: He does not smoke. Occasionally drinks. Family History: Noncontributory. Physical Examination: Vital Signs: His vital signs are stable. He is afebrile. General: He is awake, alert, and oriented x3. Head and Neck: Cranial nerves 2 through 12 grossly within normal limits. No neck masses. No JVD. Throat clear. Neck is supple. Chest: Clear. Heart: S1, S2. Abdomen: Soft. Extremities: Neurovascularly intact. Neuro: Nonfocal. Laboratory Data: White count is 11.6, slight left shift. INR is normal. Chemistry shows potassium of 5.8, BUN of 94, creatinine of 4.96. Assessment: Acute renal failure, hyperkalemia. Plan: We will go and place a Dean catheter. The patient and family understand the risks, benefit s, and alternatives and agrees to procedure. /MODL Voice ID: [id number] Report ID: [id number]
--- NOTE | 2017-11-09 23:57 | OP ---
Date of Procedure: 11/09/2017 Surgeon: Dash Webster MD Preoperative Diagnoses: Acute renal failure and hyperkalemia. Postoperative Diagnoses: Acute renal failure and hyperkalemia. Procedures: Placement of right IJ Dean catheter and interpretation of intraoperative fluoroscopy. Estimated Blood Loss: Minimal. Specimen: None. Findings: Normal anatomy. Anesthesia: Local. Complications: None. Disposition: The patient tolerated the procedure in stable condition and was taken to the Recovery i n good general condition. Procedure In Detail: The patient was brought to the OR and placed in supine position. The patient w as prepped and draped in the usual sterile fashion. Lidocaine 1% was infiltrated locally. An 18-gau ge needle was used to access the right IJ vein. Guidewire was passed. Position was confirmed with f luoroscopy, and then Seldinger technique was used. The vein was dilated, and catheter tip was placed in the SVC under fluoroscopy. The catheter was flushed with heparin and packed with heparin with go od blood flow. The patient tolerated the procedure in stable condition and was taken to the Recovery in good general condition. Chest x-ray h as been ordered. /MODL Voice ID: [id number] Report ID: [id number]
--- NOTE | 2017-11-10 02:46 | PN ---
The patient continues to have elevation of BUN and creatinine. The patient underwent emergency vascu lar access and dialysis. The patient is afebrile. The plan was discussed with the family regarding possible incomplete resolution of kidney problem and need for long-term dialysis. TAYLER/BRIGIDA Voice ID: [id number] Report ID: [id number]
--- NOTE | 2017-11-10 03:52 | PN ---
Date of Progress Note: 11/09/2017 Subjective: The patient admitted with acute kidney injury secondary to meloxicam. The patient has b een over volume over the night, we tried with the diuresis. The patient's urine output only 100. Th e patient had hyperkalemia. Has difficulty breathing. I had long discussion with the patient and th e patient's family agreed on dialysis. The patient planned for hemodialysis catheter today and dialy sis after. Physical Examination: Vital Signs: Blood pressure 148/73, pulse of 84. Chest: Crackles bilateral. Heart: S1, S2. Systolic murmur. Abdomen: Soft, nontender. Extremities: +3 edema. Laboratory Data: WBC 11.6, H and H 8.5/26.7, platelets 318. Sodium 131, potassium 5.8, bicarb 22, B UN 94, creatinine 4.9. Calcium 7.3, magnesium 2.2. Serology is still pending. Folate 22, triglycer ides 214. Assessment And Plan: 1.Acute kidney injury secondary to nonsteroidal use, oliguric, over volume with hyperkalemia without any acidosis. I am going to go ahead and proceed to the dialysis. We will dialyze on low potassium bath today. 2.We will repeat dialysis tomorrow. I am going to go ahead and discontinue IV fluid and we will mon itor the patient. 3.Hyperkalemia. The patient received albuterol, received D50. The patient is going to be dialyzed on low-potassium bath. We will follow up. 4.Over volume secondary to renal failure. The patient is going to be dialyzed and challenged. We w ill dialyze again tomorrow and we will follow up. Case discussed with the patient and family by bedside, verbalized understanding. RODOLFO/BRIGIDA Voice ID: [id number] Report ID: [id number]
[2017-11-10] MEDS: CARVEDILOL 3.125 MG TAB PO SCH ×2 (05:20→18:00)
[2017-11-10 06:11] LABS: Albumin 1.9 g/dL (3.2-5.5); Phosphorus 7.3 mg/dL (2.5-4.3); Potassium 4.7 mEq/L (3.6-5.0)
[2017-11-10] MEDS: FUROSEMIDE 100 MG/10 ML VIAL IV SCH ×2 (12:14→17:00)
[2017-11-10] MEDS: TAMSULOSIN 0.4 MG SR CAP PO SCH (12:14)
[2017-11-10] MEDS: HEPARIN 5000 UNIT/ML 1 ML VIAL SQ SCH ×2 (12:15→22:10)
[2017-11-10] MEDS: NITROGLYCERIN 0.4 MG/HR (10 MG) PATCH TD SCH (12:24)
--- NOTE | 2017-11-10 12:31 | PN ---
Date of Progress Note: 11/10/2017 The patient was seen by Dr. Fleming yesterday, 11/09/2017 because of shortness of breath and echocardi ogram was ordered. The patient is fairly asymptomatic today. Telemetry showed no new changes. He i s having hemodialysis today. Echocardiogram that was done yesterday showed normal ejection fraction, left ventricular hypertrophy with mild pulmonary hypertension. We do not believe the shortness of dhaval barrera is cardiac in nature. Continue medical therapy. We will sign off. KENDRA/BRIGIDA Voice ID: [id number] Report ID: [id number]
--- NOTE | 2017-11-11 02:08 | PN ---
Date of Progress Note: 11/10/2017 Chief Complaint: Acute kidney injury, nonoliguric, associated with hypervolemia and hyperkalemia. The patient although developed progressively worse oliguria, urine output has not improved over the last 24 hours. The patient had severe fluid overload and dyspnea. He received dialysis yesterday. Today, he is feeling better. Potassium level somewhat improved. The patient was found to have hyperkalemia, potassium of 5.8, and potassium level improved in response to dialysis. The patient has severe deconditioning. He is bed bound and has peripheral edema. Review of Systems: Complains of dyspnea on exertion. Denies chest pain or palpitations. GI: Denies nausea or vomiting. Physical Examination: Lungs: Crackles bilaterally present. Heart: S1 and S2. Abdomen: Soft, benign. Extremities: Edema present in both legs. Laboratory Data: Sodium 138, potassium 4.7, chloride 103, CO2 28, BUN 69, creatinine 3.78, glucose 112, calcium 7.1, phosphorus 7.3. Impression And Plan: 1. Acute kidney injury. At this point, the patient has oliguric acute kidney injury likely with acute tubular necrosis. The patient has fluid overload and dialysis will be done today with ultrafiltration. Patient is undergoing work-up for acute kidney injury and he may need renal biopsy to rule out glomerulonephritis. 2. Hyperkalemia. Monitor electrolytes. Continue low-potassium diet. The patient had dialysis done. Parameters were adjusted also accordingly to control potassium level. Continue dialysis for metabolic clearance and adjust ultrafiltration goal to treat fluid overload 3. Hyperphosphatemia. Re-evaluate phosphorus level. The patient is undergoing daily dialysis for metabolic clearance and to control electrolytes including and to treat hyperkalemia and provide hyperphosphatemia correction. I spent total 36 min including 26 min to coordinate care plan. SULTANA/MODL Voice ID: [id number] Report ID: [id number] KRISTEL
--- NOTE | 2017-11-11 02:08 | PN ---
Subjective: The patient is doing much better today. He still has few basal crackles. The patient w as scheduled to have repeat dialysis today. Afebrile. JONELK/BRIGIDA Voice ID: [id number] Report ID: [id number]
[2017-11-11] MEDS: CARVEDILOL 3.125 MG TAB PO SCH ×2 (05:43→18:00)
[2017-11-11 07:07] LABS: Phosphorus 6.1 mg/dL (2.5-4.3); Potassium 4.6 mEq/L (3.6-5.0)
[2017-11-11] MEDS: FUROSEMIDE 100 MG/10 ML VIAL IV SCH ×2 (09:00→18:01)
[2017-11-11] MEDS: NITROGLYCERIN 0.4 MG/HR (10 MG) PATCH TD SCH (09:00)
[2017-11-11] MEDS: TAMSULOSIN 0.4 MG SR CAP PO SCH (09:00)
[2017-11-11] MEDS: HEPARIN 5000 UNIT/ML 1 ML VIAL SQ SCH ×2 (09:00→20:26)
[2017-11-11 13:21] LABS: Hepatitis C Virus RNA (PCR)log <1.18 log IU/mL
[2017-11-11 16:23] LABS: HIV 1/2 Antibody Diff Not indicated.; HIV AG/AB 4TH GEN Non-reactive (Non-reactive)
[2017-11-11 20:43] LABS: P-ANCA Anti-Myeloperoxidase Ab <1.0 AI (<1.0)
[2017-11-12 00:35] LABS: Albumin, (SPE) 2.4 g/dL (3.8-4.8); Alpha-1-Globulins 0.6 g/dL (0.2-0.3); Gamma Globulins 1.5 g/dL (0.8-1.7); INTERPRETATION REPORT
--- NOTE | 2017-11-12 00:40 | PN ---
The patient is doing much better today. He still has few basal crackles. His potassium is normal. He has less . The patient will be continued on the same management. TAYLER/BRIGIDA Voice ID: [id number] Report ID: [id number]
--- NOTE | 2017-11-12 03:50 | PN ---
Date of Progress Note: 11/11/2017 Subjective: The patient is status post dialysis today, still anuric. We managed to remove 2700. Physical Examination: Vital Signs: Blood pressure 104/70, pulse of 80. Chest: Crackles, bilateral bases. Heart: S1, S2. Regular. Abdomen: Soft, nontender. Extremities: Plus edema. Laboratory Data: WBC 11.6, H and H 8.5/27.6, and platelets 318. Sodium 141, potassium 4.6, bicarb 3 2, BUN 44, creatinine 3.5, calcium 7.5, phosphorus 6.1, and albumin 2. PTH 250. Rbc's more than 50, wbc's 50. Complement C3 less than 11, C4 less than 4. HIV negative. Hepatitis still pending. Assessment And Plan: 1.Acute kidney injury secondary to nonsteroidal use, anuric, over-volume. I am going to go ahead an d arrange for dialysis tomorrow again given at the present that depleted complement ANCA-induced neph ritis still possible. We are going to continue to monitor. If serology came positive, we are going to plan for kidney biopsy. 2.Hypertension, controlled, optimal. We will utilize blood pressure for ultrafiltration. 3.Pulmonary edema. We will challenge the patient. Case discussed with the patient and family by bedside, verbalized understanding. MISSAEL Voice ID: [id number] Report ID: [id number]
[2017-11-12] MEDS: CARVEDILOL 3.125 MG TAB PO SCH ×2 (05:40→18:42)
[2017-11-12 06:10] LABS: Albumin 2.1 g/dL (3.2-5.5); Phosphorus 6.1 mg/dL (2.5-4.3)
[2017-11-12] MEDS: NITROGLYCERIN 0.4 MG/HR (10 MG) PATCH TD SCH (09:46)
[2017-11-12] MEDS: HEPARIN 5000 UNIT/ML 1 ML VIAL SQ SCH (09:49)
[2017-11-12] MEDS: TAMSULOSIN 0.4 MG SR CAP PO SCH (09:49)
--- NOTE | 2017-11-12 10:53 | RAD REPORT ---
EXAM DESCRIPTION: Clarisse Pa And Lat (2 Views)11/12/2017 10:27 am CLINICAL HISTORY: Cough COMPARISON: November 09, 2017 FINDINGS: The lungs appear clear of acute infiltrate. A left basilar opacity probably represents ep icardial fat. The heart is mildly enlarged. A central venous catheter has its tip in superior vena cava. Pleural th ickening is suspected. IMPRESSION: No acute abnormalities displayed
[2017-11-12 12:30] LABS: HBsAG Nonreactive (Nonreactive); Hepatitis A IgM Antibody Nonreactive
[2017-11-12] MEDS ORDERED: DESMOPRESSIN 4 MCG/ML AMP IV ONE (15:00)
--- NOTE | 2017-11-12 20:00 | PN ---
Subjective: The patient is doing better. He still has bilateral crackles. I had discussion with e family members regarding long-term dialysis. The patient, as it stands now, very likely is going t o need dialysis post discharge, whether he would recover his kidney function in the near future is no t clear. His serology and other workup so far is negative. RRK/MODL Voice ID: [id number] Report ID: [id number]
--- NOTE | 2017-11-13 01:19 | PN ---
Date of Progress Note: 11/12/2017 Subjective: The patient planned for dialysis today, still complaining of some shortness of breath. Physical Examination: Vital Signs: When I saw the patient. The patient was sitting in the chair. Still anuric. Blood pre ssure of 149/56, pulse of 59, afebrile. Chest: Crackles in the base. Heart: S1, S2. Regular. Abdomen: Soft, nontender. EXTREMITIES: Plus edema. Laboratory Data: Chest x-ray, congestion. WBC 11.6, H and H 8.5/26.7. Sodium 140, potassium 4, bic arb 30, BUN 42, creatinine 3.9, calcium 7.4, phosphorus 6.1. PTH 250. Protein creatinine still pend ing. Hepatitis was negative. ELKE was negative. ANCA was negative. anti-glomerular basement membra ne negative. Complement is depleted. HIV was negative. Current Medications: The patient on include; 1.Flomax. 2.Carvedilol 3.125 b.i.d. 3.Nitroglycerin. 4.Tylenol. 5.Zofran. Assessment And Plan: 1.Acute kidney injury secondary to nonsteroidal use, anuric with significant proteinuria, still not quantified. I am going to send for protein creatinine. I had long discussion with the patient and claudio ortiz by bedside. The patient is going to need hemodialysis in half-way. We will go ahead and arra nge for PermCath placement. We will arrange for replacement in [facility]. The patient agreed. Given the depleted complement, I am going to arrange for kidney biopsy and we will follow up. 2.Hypertension, controlled, optimal. Continue current medication. 3.The patient is going to schedule for PermCath on Tuesday and kidney biopsy on Tuesday. RODOLFO/BRIGIDA Voice ID: [id number] Report ID: [id number]
[2017-11-13] MEDS: CARVEDILOL 3.125 MG TAB PO SCH ×2 (05:11→17:36)
[2017-11-13 05:53] LABS: Albumin 2.1 g/dL (3.2-5.5); Phosphorus 5.4 mg/dL (2.5-4.3)
[2017-11-13] MEDS: TAMSULOSIN 0.4 MG SR CAP PO SCH (08:49)
[2017-11-13] MEDS: NITROGLYCERIN 0.4 MG/HR (10 MG) PATCH TD SCH (08:49)
[2017-11-13 09:52] LABS: UR CREAT 395.8 mg/dL
[2017-11-13 09:53] LABS: Urine Protein/Creatinine Ratio 8.69 (<0.15)
[2017-11-13 20:33] LABS: Protime INR 1.03
[2017-11-13 20:54] LABS: Magnesium 1.9 mg/dL (1.8-2.5); Potassium 3.9 mEq/L (3.6-5.0)
[2017-11-13 21:22] LABS: Absolute Lymphocytes (CBC) 0.5 K/uL (0.7-4.9); Absolute Monocytes 0.7 K/uL (0.1-1.3); Absolute Neutrophil 4.4 K/uL (1.8-8.0); Basophils % 0.7 % (0-1.3); Eosinophils % 4.4 % (0-4.4); Hematocrit 20.8 % (39.6-49.0); Lymphocytes % 7.8 % (15.3-44.8); MCH 26.5 pg (27.0-35.0); MCV 80.9 fL (80-100); MPV 7.9 fL (7.6-11.3); Monocytes % 11.4 % (3.3-12.3); RBC Red Blood Cell Count 2.57 M/uL (4.33-5.43)
--- NOTE | 2017-11-13 22:01 | PN ---
Date of Progress Note: 11/13/2017 Chief Complaint: Acute on chronic kidney injury, cardiorenal syndrome, congestive heart failure. Subjective: The patient was found to have severe azotemia, hyperkalemia and fluid overload and was started on dialysis. The patient remains anuric. The patient has severe acute kidney injury. Renal function has not improved. The patient is to have renal biopsy for acute kidney failure evaluation and for proteinuria evaluation. Review of Systems: Denies fever or chills. Physical Examination: Lungs: Few crackles at bases. Heart: S1, S2. Abdomen: Soft, benign, nontender. Extremities: Edema present in both legs. Laboratory Data: Sodium 140, potassium 4.0. BUN 42, creatinine 3.9, calcium 7.4, phosphorus 6.1, PTH 250. Protein-creatinine ratio pending. ELKE negative. ANCA negative. Anti-GBM negative. HIV negative. Impression And Plan: 1. Jwrjx-uz-rrppvui kidney injury secondary to nonsteroidal anti-inflammatory medication. Patient remains anuric. The patient will have renal biopsy for evaluation of severe proteinuria, pending further workup to rule out monoclonal gammopathy of unknown significance and to rule out glomerulonephritis. 2. Hypertension. Continue blood pressure medication. 3. Fluid overload, congestive heart failure, qkcsd-xg-unflgrq diastolic dysfunction. Continue low-sodium diet. Continue dialysis with ultrafiltration to control volemia. 4. Renal osteodystrophy, hyperphosphatemia. Continue binders and adjust calcium based binders as needed. Monitor intact PTH. EB/MODL Voice ID: [id number] Report ID: [id number] KRISTEL
[2017-11-13 22:50] LABS: Platelet Estimate ADEQ; Urine White Blood Cell Casts OK
[2017-11-13 22:51] LABS: Anisocytosis 1+; Blood Morphology Comment NOTED (NOT SEEN)
[2017-11-13 22:52] LABS: Rouleau NOTED
[2017-11-14] MEDS: CARVEDILOL 3.125 MG TAB PO SCH ×2 (05:54→19:44)
[2017-11-14 06:13] VITALS: BMI 32.6
[2017-11-14 07:46] LABS: Absolute Lymphocytes (CBC) 0.5 K/uL (0.7-4.9); Absolute Monocytes 0.7 K/uL (0.1-1.3); Absolute Neutrophil 7.1 K/uL (1.8-8.0); Basophils % 0.6 % (0-1.3); Eosinophils % 3.1 % (0-4.4); Hematocrit 22.2 % (39.6-49.0); Lymphocytes % 5.5 % (15.3-44.8); MCH 26.2 pg (27.0-35.0); MCV 82.5 fL (80-100); MPV 7.9 fL (7.6-11.3); Monocytes % 8.1 % (3.3-12.3); RBC Red Blood Cell Count 2.69 M/uL (4.33-5.43)
[2017-11-14 08:06] LABS: Blood Morphology Comment NOT SEEN (NOT SEEN); Platelet Estimate ADEQ; Urine White Blood Cell Casts OK
[2017-11-14] MEDS: NITROGLYCERIN 0.4 MG/HR (10 MG) PATCH TD SCH (11:09)
[2017-11-14] MEDS: TAMSULOSIN 0.4 MG SR CAP PO SCH (11:09)
[2017-11-14] MEDS ORDERED: NA CHLORIDE 0.9% 250 ML ONE (15:30)
--- NOTE | 2017-11-14 18:19 | PN ---
The patient is receiving first unit of packed RBC. Renal biopsy is cancer. The patient will have re peat hemoglobin, hematocrit. If it is still below 8, he will have second unit transfused. The patient otherwise is stable, afebrile. TAYLER/BRIGIDA Voice ID: [id number] Report ID: [id number]
[2017-11-14 21:00] LABS: Hematocrit 25.3 % (39.6-49.0)
--- NOTE | 2017-11-14 23:07 | PN ---
Date of Progress Note: 11/14/2017 Chief Complaint: Acute on chronic kidney injury. The patient is dialysis dependent, Subjective: The patient was scheduled to have renal biopsy, although biopsy was canceled because of severe anemia. Hemoglobin was 6.8 and subsequently hemoglobin was re-evaluated, was 7.1. Workup is pending for acute on chronic anemia. The patient has congestive heart failure, cardiorenal syndrome. He was started on dialysis to control volemia and azotemia. Review of Systems: Denies fever, chills. Objective: Lungs: Clear to auscultation bilaterally. Heart: S1, S2. Abdomen: Soft, benign. Extremities: Slight edema. Laboratory Data: Hemoglobin 8.3, WBC 8.6, platelet count is 258,000. Chemistry showed sodium 139, potassium 3.9, chloride 102, CO2 31, BUN 45, creatinine 5.04, calcium 7.9, magnesium 1.9. Impression And Plan: 1. Acute on chronic kidney injury. Plan is to resume dialysis tomorrow. Electrolytes are controlled. There is no evidence of renal function recovery. 2. Anemia, acute on chronic. Blood transfusion as needed. Reevaluate iron status and adjust LINDY. 3. Acute kidney injury with oliguria. Plan is to reschedule renal biopsy. 4. Hyperparathyroidism. Phosphorus level was up to 6.1, calcium 7.4. Intact PTH 250. Continue low phosphorus diet, start binders and reevaluate phosphorus level. SULTANA/BRIGIDA Voice ID: [id number] Report ID: [id number] KRISTEL
[2017-11-15 05:41] LABS: Beta Globulin 24 HR Urine 11 %; Creatinine 24 Hour Urine 0.46 g/24 h (0.63-2.50); Gamma Globulin, 24hr Urine 17 %; Interpretation: REPORT; Urine Alpha-2-Globulins, 24 Hr 12 %; Urine PEP Abn Protein Band1 REPORT; Urine Protein/Creat Ratio 24Hr 4927 mg/g creat (<=84); Urine Total Volume 24 Hours 350 mL
[2017-11-15] MEDS: CARVEDILOL 3.125 MG TAB PO SCH ×2 (06:29→17:20)
[2017-11-15 08:31] LABS: Potassium 5.1 mEq/L (3.6-5.0)
[2017-11-15] MEDS: SEVELAMER CARBONATE 800 MG TABLET PO SCH ×3 (09:34→17:20)
[2017-11-15] MEDS: NITROGLYCERIN 0.4 MG/HR (10 MG) PATCH TD SCH (09:36)
[2017-11-15] MEDS: TAMSULOSIN 0.4 MG SR CAP PO SCH (09:37)
--- NOTE | 2017-11-16 02:52 | PN ---
Date of Progress Note: 11/15/2017 Subjective: The patient still having shortness of breath. Physical Examination: Vital Signs: When I saw the patient, blood pressure 157/74, pulse of 72. Chest: Crackles bilateral. Heart: S1, S2. Regular. Abdomen: Soft, nontender. Extremities: Plus edema. Laboratory Data: WBC 8.6, H and H 8.3/25.3, platelets 258. Sodium 138, potassium 5.1, bicarb 28. B UN 70, creatinine . Calcium 7.5. Phosphorus 9.4. Complement depleted. The rest of the serology al l negative. SPEP, M spike migrating on gammaglobulin, small. UPEP, no abnormal band. Current Medications: The patient on include; 1.Heparin. 2.Flomax. 3.Carvedilol 3.125 b.i.d. 4.Nitroglycerin. 5.Renvela 3 tablets with each meal. 6.Zofran. Assessment And Plan: 1.Acute kidney injury with nephrotic range of proteinuria. Could not explain it with just Mobic use . Given the nephrotic range of proteinuria, patient continued to be anuric with significant shortnes s of breath. The patient received dialysis today. We managed to remove 2.5. I am going to go ahead and arrange for another session of dialysis tomorrow. We will go ahead and proceed with converting his dialysis catheter to tunnel, and we will consider kidney biopsy also to confirm the diagnosis for the patient, given the depletion in the complement and the patient is still anuric and in the presen ce of the nephrotic range proteinuria. 2.Iron-deficiency anemia. We will start the patient on IV iron. 3.Secondary hyperparathyroidism. The patient started on Renvela. We will follow up. 4.Nephrotic range of proteinuria as above. I am going to send for immune fixation. We will proceed with the kidney biopsy. 5.Hypertension, controlled, optimal. Continue current medication. 6.Over volume. Pulmonary edema. We will repeat chest x-ray to evaluate after removal of this fluid how is the lung appearing. MISSAEL Voice ID: [id number] Report ID: [id number]
[2017-11-16] MEDS: CARVEDILOL 3.125 MG TAB PO SCH (05:19)
[2017-11-16] MEDS: SEVELAMER CARBONATE 800 MG TABLET PO SCH ×3 (07:19→17:00)
[2017-11-16] MEDS ORDERED: CARVEDILOL 3.125 MG TAB PO ONE (08:00)
[2017-11-16] MEDS: NITROGLYCERIN 0.4 MG/HR (10 MG) PATCH TD SCH (08:12)
[2017-11-16 08:38] LABS: Albumin 2.3 g/dL (3.2-5.5); Bilirubin Total 0.4 mg/dL (0.3-1.2); Phosphorus 5.6 mg/dL (2.5-4.3); Potassium 4.5 mEq/L (3.6-5.0); Protein, Total 6.5 g/dL (6.0-8.3)
[2017-11-16 08:46] LABS: Eosinophils % 2.5 % (0-4.4); Hematocrit 24.7 % (39.6-49.0); Lymphocytes % 6.3 % (15.3-44.8); MCH 27.6 pg (27.0-35.0); MCV 85.2 fL (80-100); MPV 7.7 fL (7.6-11.3); Monocytes % 9.3 % (3.3-12.3)
--- NOTE | 2017-11-16 08:47 | RAD REPORT ---
EXAM DESCRIPTION: Clarisse Single View11/16/2017 6:28 am CLINICAL HISTORY: Shortness of breath COMPARISON: November 12, 2017 FINDINGS: Mild opacities within the left lower lobe are suspected. The remainder of the lungs appea r clear. The heart is mildly to moderately enlarged. A central venous catheter remains in place . Right pleural thickening is suspected IMPRESSION: Mild opacities within left lower lobe may indicate atelectasis or pneumonia
[2017-11-16] MEDS: TAMSULOSIN 0.4 MG SR CAP PO SCH ×2 (09:00→12:41)
[2017-11-16] MEDS ORDERED: DESMOPRESSIN 4 MCG/ML AMP IV ONE (09:00)
[2017-11-16] MEDS ORDERED: REGADENOSON 0.4 MG/5 ML SYR IV ONE (09:28)
[2017-11-16] MEDS ORDERED: DESMOPRESSIN 20 MCG in NA CHLORIDE 0.9% 50 ML IV ONE (09:30)
[2017-11-16 09:33] LABS: Urine White Blood Cell Casts DIFF
[2017-11-16 09:34] LABS: Blood Morphology Comment NOT SEEN (NOT SEEN); Platelet Estimate ADEQ; Platelets, Giant FEW
[2017-11-16] MEDS ORDERED: MIDAZOLAM HCL 2 MG/2 ML INJ ONE (10:17)
[2017-11-16] MEDS ORDERED: FENTANYL CITR 100 MCG/2 ML ONE ×2 (10:17)
[2017-11-16] MEDS ORDERED: NALOXONE 0.4 MG/ML VIAL ONE (10:18)
[2017-11-16] MEDS ORDERED: FLUMAZENIL 0.1 MG/ML (5 mL VIAL) IV ONE (10:18)
[2017-11-16] MEDS ORDERED: DIPHENHYDRAMINE 50 MG/ML VIAL ONE (10:18)
[2017-11-16] MEDS ORDERED: NA CHLORIDE 0.9% 500 ML ONE (10:25)
--- NOTE | 2017-11-16 13:25 | RAD REPORT ---
EXAM DESCRIPTION: US - Renal Biopsy - 11/16/2017 12:02 pm CLINICAL HISTORY: Renal failure/renal disease. COMPARISON: Separate 2017 CT. TECHNIQUE: The risks, benefits and alternatives to the procedure explained to the patient and inform ed consent obtained. Conscious sedation was performed for approximately 30 minutes. 1.5 milligrams Versed and 75 microgram s fentanyl was administered intravenously. Vital signs were monitored by a nurse in attendance. The patient was placed prone into the CT scanner. The lower pole of the left kidney was localized. Sk in and subcutaneous tissues were anesthetized with Lidocaine. Under CT guidance a 17-gauge needle was placed into the periphery of the lower pole of the left kidney. Through this an 18-gauge needle was placed. Three 2 cm core specimens were obtained and given to pathology. Post biopsy images do not demonstrate a subcapsular/perirenal hematoma. The patient experienced no immediate complication. IMPRESSION: Core biopsies of the left kidney.
[2017-11-16] MEDS: EPOETIN ALFA 10,000 UNIT/ML VIAL IV SCH (18:21)
[2017-11-16] MEDS ORDERED: CEFAZOLIN/SWI 1gm 1 GM/10 ML SYR IVP SCH (18:45)
[2017-11-16] MEDS: CARVEDILOL 6.25 MG TAB PO SCH (22:39)
--- NOTE | 2017-11-16 23:43 | PN ---
Date of Progress Note: 11/16/2017 Subjective: The patient is doing well status post kidney biopsy today. Physical Examination: Vital Signs: When I saw the patient, blood pressure of 119/56, pulse of 61. Chest: On the upper zone, crackles on the base. Heart: S1, S2. Regular. Abdomen: Soft, nontender. Extremities: Plus to trace edema. The patient is still oliguric. Urine output around 100. Neuro: Alert. Nonfocal. No tremor. Laboratory Data: WBC 9, H and H 8/24.7, platelets 247. Sodium 139, potassium 4.5, bicarb 32, BUN 48 , creatinine 5.8, calcium 7.7, phosphorus 5.6, magnesium of 2. Current Medications: The patient on include, 1.Flomax. 2.Zofran. 3.Epogen. Assessment And Plan: 1.Acute kidney injury with nephrotic range of proteinuria, depleted complement, SPEP suspected of M- spike, UPEP is negative. Immunofixation is still pending, status post kidney biopsy, stable. I am g oing to go ahead and arrange for dialysis, the patient going to be Tuesday, Tuesday, Tuesday, so he i s going to be due for dialysis on Tuesday. We will monitor the patient. 2.Hypertension, controlled, optimal. We will hold all blood pressure medication. 3.Nephrotic range of proteinuria. Serology negative, complement depleted, SPEP suspicious of M-spik e, negative UPEP, waiting for immunofixation. 4.Anemia. Continue current treatment. Continue Epogen. Case discussed with the patient and family by bedside. Planning tomorrow for catheter placement. en, the patient is going to be cleared from the renal standpoint for discharge planning. We will follow up as outpatient. RODOLFO/BRIGIDA Voice ID: [id number] Report ID: [id number]
--- NOTE | 2017-11-17 01:59 | PN ---
The patient had his renal biopsy done today. Postoperatively, the patient was examined. He was doin g well. In view of his atelectasis, the patient is started on incentive spirometry. TAYLER/BRIGIDA Voice ID: [id number] Report ID: [id number]
[2017-11-17] MEDS: CARVEDILOL 6.25 MG TAB PO SCH ×3 (06:00→17:15)
[2017-11-17] MEDS: SEVELAMER CARBONATE 800 MG TABLET PO SCH ×3 (07:36→17:15)
[2017-11-17] MEDS: TAMSULOSIN 0.4 MG SR CAP PO SCH ×2 (09:00→12:05)
[2017-11-17] MEDS: NITROGLYCERIN 0.4 MG/HR (10 MG) PATCH TD SCH (09:03)
[2017-11-17] MEDS ORDERED: PROPOFOL 200 MG/20 ML VIAL IV ONE ×2 (09:04→10:12)
[2017-11-17] MEDS ORDERED: FENTANYL CITR 100 MCG/2 ML ONE (09:04)
[2017-11-17] MEDS ORDERED: MIDAZOLAM HCL 2 MG/2 ML INJ ONE (09:04)
[2017-11-17] MEDS ORDERED: NS 0.9% VIAL 10 ML ONE (09:08)
[2017-11-17] MEDS ORDERED: NA CHLORIDE 0.9% 100 ML IV ONE (09:09)
[2017-11-17] MEDS ORDERED: HEPARIN 5000 UNIT/ML 1 ML VIAL ONE (09:09)
[2017-11-17] MEDS ORDERED: LIDOCAINE 1% 20 ML MDV ONE (09:10)
[2017-11-17] MEDS ORDERED: NA CHLORIDE 0.9% 500 ML ONE (09:14)
[2017-11-17] MEDS ORDERED: CEFAZOLIN/SWI 1gm 1 GM/10 ML SYR ONE (09:14)
--- NOTE | 2017-11-17 10:22 | P.OP ---
Preoperative diagnosis: ESRD Postoperative diagnosis: same Primary procedure: PHYLICIA Delgado Secondary procedure: Fluroscopy Anesthesia: MAC Estimated blood loss: min Specimen: none Findings: Nl Anatomy Complications: None Transferred to: Recovery Room Condition: Good
--- NOTE | 2017-11-17 10:28 | RAD REPORT ---
EXAM DESCRIPTION: NM - Rest Stress Cardiac Imaging - 11/17/2017 10:14 am CLINICAL HISTORY: Chest pain COMPARISON: None. TECHNIQUE: The patient was administered approximately 10 mCi of Tc 99m Sestamibi prior to resting SP ECT imaging of the heart. The patient was then administered approximately 30 mCi of Tc 99m Sestamibi following exercise or pharmacologic stress. Multiplanar SPECT images were reviewed. FINDINGS: The end diastolic volume is 124 ml, the end systolic volume is 57 ml, and the ejection fra ction is 54 %. No stress-induced ischemic changes are identifiable. There is diminished activity post oral lateral w all near the base. This is unchanged between rest and stress imaging. IMPRESSION: No stress-induced ischemic changes identifiable. No true area of scarred myocardium susp ected. End-diastolic volume is increased at 124 milliliters. Ejection fraction is normal at 54%.
--- NOTE | 2017-11-17 11:05 | RAD REPORT ---
EXAM DESCRIPTION: RAD - Fluoroscopy <1 Hour - 11/17/2017 10:34 am CLINICAL HISTORY: Venous catheter insertion. COMPARISON: None. FINDINGS: Fluoroscopic imaging is submitted from placement of a venous catheter. Details of the pro cedure not available.
--- NOTE | 2017-11-17 11:23 | RAD REPORT ---
EXAM DESCRIPTION: RAD - Chest Single View - 11/17/2017 11:09 am CLINICAL HISTORY: Venous catheter placement COMPARISON: None. FINDINGS: Portable technique limits examination quality. Right-sided venous catheter is in place with its tip in the SVC. No postprocedure pneumothorax. Mild interstitial pulmonary edema noted. The heart is moderately enlarged. IMPRESSION: No postprocedure pneumothorax.
[2017-11-17] MEDS: ACETAMINOPHEN 500 MG TAB PO PRN ×2 (12:05→17:15)
--- NOTE | 2017-11-17 13:02 | TREADPHA ---
DX: VENTRICULAR TACHCARDIA Date of Study: 11/17/17 Ht: 5 2 Wt: 162 lb 11.2 oz Consulting Physician: ROSALINE MEDICATIONS: TYLENOL, COREG, DEXTROSE, GLUCAGEN, HEPARIN, ZOFRAN, RENVELA, FLOMAX. HISTORY: 72 YEAR OLD MALE WITH VENTRICULAR TACHYCARDIA. HISTORY OF HYPERTENSION, GASTROINTESTINAL REFLUX DISEASE PHYSICIAL EXAMINATION: RESTING B.P.: 154/78 RESTING H.R.: 66 RESTING EKG: SINUS, RIGHT BUNDLE BRANCH BLOCK PROTOCOL: LEXISCAN EXERCISE TIME: 3:30 B.P. AT PEAK STRESS: 112/98 IMPRESSION: LEXISCAN INJECTED, CARDIOLITE INJECTED PER PROTOCOL, SEE NUCLEAR MEDICINE REPORT. NO CHEST PAIN, NO VENTRICULAR TACHYCARDIA, NO SUPRA VENTRICULAR TACHYCARDIA. NON DIAGNOSTIC EKG WITH LEXISCAN STRESS.
--- NOTE | 2017-11-17 23:25 | OP ---
Date of Procedure: 11/17/2017 Surgeon: Dash Webster MD Preoperative Diagnosis: End-stage renal disease. Postoperative Diagnosis: End-stage renal disease. Procedures: Right IJ Tesio catheter placement and intraoperative fluoroscopy. Estimated Blood Loss: Minimal. Specimen: None. Findings: Normal anatomy. Anesthesia: MAC. Complications: None. Disposition: The patient tolerated the procedure in stable condition and taken to Recovery in good g eneral condition. Procedure In Detail: The patient was brought to the OR and placed in supine position. MAC anesthesi a begun. The patient was prepped and draped in the usual sterile fashion. Lidocaine 1% infiltrated locally. We moved the Dean catheter in right IJ and then made a counterincision in the right ante rior chest and Seldinger technique was used; however, we put the catheter in, it did not flush and as pirate appropriately, and fluoroscopy revealed it may have gone into the brachiocephalic vein. There fore, I took the guidewire out and re-accessed the right IJ vein and guidewire was passed. And at th is time, using the SVC the catheter was tunneled from the right anterior chest to the neck and then S eldinger technique was used and then tip of the catheter was placed in the SVC under fluoroscopy. Ca theter was flushed with heparin and packed with heparin with good blood flow. 3-0 chromic was used t o approximate the subcutaneous tissue and 3-0 nylon was used to secure the tube to the chest wall. S terile dressing was applied. The patient was awakened and taken to Recovery in good general condition. A chest x-ra y has been ordered. /MODL Voice ID: [id number] Report ID: [id number]
--- NOTE | 2017-11-18 02:17 | PN ---
The patient's biopsy was done yesterday. I was told by the nurse that very likely the patient has fi ndings needing higher level of care, and the patient needs to be transferred to [facility]. Kolb genna, this has not been accomplished yet. Meanwhile, the patient had stress test done. There is no e vidence of ischemia. At this point cardiac evaluation is complete. The patient will be transferred as soon as bed is available in Medical Center. TAYLER/BRIGIDA Voice ID: [id number] Report ID: [id number]
--- NOTE | 2017-11-18 03:11 | PN ---
Date of Progress Note: 11/17/[address] Lane had been in the hospital for few days. He had been seen by us intermittently. We had sign ed off his case, but apparently has been having short runs of ventricular tachycardia, asymptomatic w ith no hemodynamic compromise. Dr. Fleming ordered a stress Cardiolite on him today, which was normal without any stress-induced ischemia, ejection fraction 54%. We will observe him, consider low-dose beta neil. We will be available for questions. We will sign off his case for now. KENDRA/BRIGIDA Voice ID: [id number] Report ID: [id number]
--- NOTE | 2017-11-18 05:03 | PN ---
Date of Progress Note: 11/17/2017 Subjective: The patient is status post tunneled catheter placement. Physical Examination: Vital Signs: Blood pressure of 145/70, pulse of 64, afebrile. Chest: Crackles more on the right base. Heart: S1, S2. Regular. Abdomen: Soft and nontender. Extremities: Plus edema. Laboratory Data: WBC 9, H and H 8/24.7, and platelets 247. Sodium 139, potassium 4.5, bicarb 32, BU N 48, creatinine 5.8, calcium 7.7, phosphorus 5.6, and magnesium of 2. The patient is still oliguric . Echocardiogram done back on November 09; normal ejection fraction, dilated hypertrophy. Urine culture was negative. Medications: Current medications the patient is on including; 1.Cefazolin. 2.Carvedilol. 3.Epogen. 4.Nitroglycerin. 5.Renvela 3 tablets with each meal. 6.Flomax. Kidney biopsy came back crescent with proliferated full house, raising the possibility of either SLE or post infection. SLE serology was negative. We do not have blood culture. 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 The patient is going to need to be ruled ou t of infection. I am going to go ahead and arrange for CT abdomen and pelvis and chest to rule out a ny infection process. We will do blood culture and urine culture. The patient is going to need to b e transferred to other tertiary hospital for Cytoxan infusion as if we ruled out the infection, the p atient is going to need Cytoxan with pulsed steroid. 2.Hypertension, controlled, optimal. Continue current medication. 3.Over-volume. We are going to try to establish better volume control with ultrafiltration. 4.Nephrotic range of proteinuria, as above. Case was discussed with the patient who verbalized understanding. Discussed with the primary staff. MISSAEL Voice ID: [id number] Report ID: [id number]
[2017-11-18] MEDS: CARVEDILOL 6.25 MG TAB PO SCH ×2 (06:34→18:19)
[2017-11-18] MEDS: ACETAMINOPHEN 500 MG TAB PO PRN (06:37)
[2017-11-18] MEDS: NITROGLYCERIN 0.4 MG/HR (10 MG) PATCH TD SCH (08:33)
[2017-11-18] MEDS: TAMSULOSIN 0.4 MG SR CAP PO SCH (08:33)
[2017-11-18] MEDS: SEVELAMER CARBONATE 800 MG TABLET PO SCH ×3 (08:33→17:00)
--- NOTE | 2017-11-18 09:29 | RAD REPORT ---
EXAM DESCRIPTION: CT - Chest Abd Pelvis Wo Con - 11/18/2017 8:12 am CLINICAL HISTORY: Chest and abdomen pain. RPGN. COMPARISON: None. TECHNIQUE All CT scans are performed using dose optimization technique as appropriate and may includ e automated exposure control or mA/KV adjustment according to patient size. FINDINGS: Airspace opacities are present in both lung bases, likely representing atelectasis or aspi ration.Small to moderate-sized bilateral pleural effusions are seen.Right-sided dialysis catheter its tip in the SVC.No intrathoracic adenopathy. The liver, spleen, pancreas, adrenal glands and kidneys are within normal limits. Cholecystectomy cli ps. No bowel obstruction, free air, free fluid or abscess. No pathologic lymphadenopathy in the abdomen o r pelvis. Small fat containing umbilical hernia. Prominent sigmoid diverticulosis coli is present. Di verticulosis also present in the hepatic flexure. Hardware is present in the right hemipelvis. IMPRESSION: Rrkv-ok-qmflaccu opacities with bilateral pleural effusions in the lung bases may repres ent atelectasis or infiltrate/aspiration. Prominent colonic diverticulosis is noted without diverticulitis. Small fat containing umbilical hernia.
[2017-11-18 13:36] LABS: Rheumatoid Factor POS (NEG)
[2017-11-18 13:37] LABS: Rheumatoid Factor Titer 1:1 (8 RF IU/mL)
--- NOTE | 2017-11-18 13:48 | PN ---
Date of Progress Note: 11/18/2017 The patient had a Tesio catheter placed yesterday and I was called last night. There was oozing woun d dressing that saturated. I advised them to remove the dressing, put Surgicel and a pressure dressi ng, and he has had no further bleeding since that time. Therefore, no further intervention is necess marcy at this time. Re-consult ghazala DHALIWAL/BRIGIDA Voice ID: [id number] Report ID: [id number]
[2017-11-18 17:18] VITALS: O2SAT 96
--- NOTE | 2017-11-19 02:33 | PN ---
Date of Progress Note: 11/18/2017 Chief Complaint: Acute kidney injury, aneuric, oliguric severe associated with severe proliferative glomerulonephritis, renal biopsy which showed " full house " immunoglobulin pattern suggestive of severe lupus nephritis vs postinfectious glomerulonephritis . History Of Present Illness: The patient had a kidney biopsy which showed diffuse proliferative glomerulonephritis with cellular crescent formation and immunfluorescence study revealing " full house " immunoglobulins pattern; differential diagnosis include glomerulonephritis secondary to post infectious process, versus lupus nephritis. Acute kidney injury , severe due to severe glomerulonephritis , renal function has not improved , patient remains oliguric and is dialysis dependent .The patient was undergoing dialysis today, although during dialysis he developed bradycardia, heart rate dropped to 45 and dialysis was terminated. The patient was sent to the telemetry floor and attending was notified. Review of Systems: During dialysis patient denies any chest pain. Denies headache, nausea, vomiting. Physical Examination: Lungs: Few crackles at bases. Heart: S1, S2. Abdomen: Soft, benign. Extremities: Slight edema. Blood Work: Hemoglobin 8.0, WBC 9.0, platelet count is 247,000. Chemistries showed sodium 139, potassium 4.5, chloride 99, CO2 32, BUN 48, creatinine 5.88, calcium 7.7, phosphorus 5.6. Serology test; rheumatoid arthritis, positive rheumatoid factor , ELKE negative, ANCA negative, C3 and C4 complement diminished. Anti-GBM less than 1, nonreactive. Gkdu-zhzhei-ksucyysi DNA antibody 1 negative. Impression And Plan: Acute kidney injury, severe glomerulonephritis. 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 During this admission, blood cultures were obtained on November 18 and the results are pending. On November 08, urine culture did not show significant growth. [place] count was 10,000 CFU/mL and it showed mixed krystal. I recommend transesophageal echo to rule out endocarditis. The patient is to be transferred to higher level of care for possible treatment with the Cytoxan for glomerulonephritis . Currently workup is pending to rule out bacteremia. Chest x-ray showed possible infiltrate and I recommend further treatment of pneumonia. Cryoglobulin pending , test was ordered in view of positive RF , hep C ab neg . Lupus panel ordered. I spent total 36 min including 26 min to coordinate care plan. SULTANA/BRIGIDA Voice ID: [id number] Report ID: [id number] [facility]
--- NOTE | 2017-11-19 03:34 | PN ---
The patient is stable. The patient's transfer has not been accomplished due to lack of available bed as well as insurance processing. The patient is afebrile. His chest has few scattered crackles. TAYLER/BRIGIDA Voice ID: [id number] Report ID: [id number]
[2017-11-19] MEDS: CARVEDILOL 6.25 MG TAB PO SCH (05:43)
[2017-11-19 06:37] LABS: Absolute Lymphocytes (CBC) 0.5 K/uL (0.7-4.9); Absolute Monocytes 0.8 K/uL (0.1-1.3); Absolute Neutrophil 6.9 K/uL (1.8-8.0); Basophils % 0.6 % (0-1.3); Eosinophils % 3.5 % (0-4.4); MCH 27.6 pg (27.0-35.0); MCV 86.8 fL (80-100); MPV 8.4 fL (7.6-11.3); Monocytes % 9.4 % (3.3-12.3); RBC Red Blood Cell Count 2.65 M/uL (4.33-5.43)
[2017-11-19 06:37] LABS: Potassium 5.1 mEq/L (3.6-5.0)
[2017-11-19] MEDS: SEVELAMER CARBONATE 800 MG TABLET PO SCH ×3 (09:57→17:39)
[2017-11-19] MEDS: TAMSULOSIN 0.4 MG SR CAP PO SCH (09:57)
[2017-11-19 12:18] VITALS: TEMP 98
[2017-11-19] MEDS ORDERED: NA CHLORIDE 0.9% 250 ML ONE (12:35)
[2017-11-19] MEDS: EPOETIN ALFA 10,000 UNIT/ML VIAL IV SCH (13:37)
[2017-11-19 17:20] VITALS: BP 137/58
--- NOTE | 2017-11-19 17:24 | RAD REPORT ---
EXAM DESCRIPTION: US - Renal Ultrasound-Complete - 11/19/2017 5:14 pm CLINICAL HISTORY: Medical renal disease, recent renal biopsy COMPARISON: CT chest abdomen and pelvis November 18, CT biopsy imaging November 16 FINDINGS: The right kidney measures 12.8 x 5.1 x 7.3 cm. The left kidney measures 12.9 x 5.7 x 6.0 cm. Cortical thickness is normal but there is significant increase in cortical echogenicity typical f or medical renal disease. No hydronephrosis or suspicious renal mass. No perinephric mass or hematoma seen. IMPRESSION: Medical renal disease is present. No hydronephrosis or mass. No evidence for a retroperitoneal hemorrhage.
[2017-11-19] MEDS ORDERED: CARVEDILOL 3.125 MG TAB PO SCH (18:00)
[2017-11-19 18:22] LABS: Hematocrit 27.8 % (39.6-49.0)
--- NOTE | 2017-11-19 20:07 | PN ---
The patient is stable. The patient's transfer has not been successful. I spoke to [facility] augusto harrison today. She will talk to the lecturer in marketing on-call regarding his care, once he is transferred to [facility]. The patient had a hemoglobin less than 8 g, unit of blood has been ordered. TAYLER/BRIGIDA Voice ID: [id number] Report ID: [id number]
--- NOTE | 2017-11-20 01:01 | PN ---
Date of Progress Note: 11/19/2017 Chief Complaint: Acute kidney injury, oliguric, anuric, associated with glomerulonephritis. Subjective: The patient underwent biopsy, which showed glomerulonephritis diffusely proliferative with crescent. Renal function has not improved. The patient is dialysis dependent. Pathology report addendum was provided and it showed possible infection glomerulonephritis versus lupus nephritis. Immunoglobulin pattern was suggestive of full house glomerulonephritis. The patient is scheduled to have dialysis today. Potassium level was elevated up to 5.1. ROS: The patient denies chest pain or palpitations. Denies nausea or vomiting. Physical Examination: Lungs: Few crackles at bases. Heart: S1, S2. Abdomen: Soft benign. Slight edema in both legs. Laboratory Data: Hemoglobin 7.3, WBC 8.5, platelet count is 231,000. Chemistry showed sodium 135, potassium 5.1, chloride 99, CO2 of 27. BUN 78, creatinine 8.43, calcium 8.7. Impression And Plan: 1. Acute kidney injury, severe. The patient remains on dialysis. The patient is dialyzed daily with ultrafiltration. He developed bradycardia yesterday. The patient has sinus bradycardia. Carvedilol dose was reduced. Renal biopsy was done during this admission and showed post infectious proliferative, diffuse glomerulonephritis. Differential diagnosis includes lupus nephritis. Blood cultures were obtained and preliminary report showed no growth. The patient although may need to be ruled out for endocarditis, and transesophageal echo is recommended. The patient may need to have Cytoxan treatment for glomerulonephritis and he will be transferred to [facility]. 2. Chest x-ray showed possible infiltrate. I recommended treatment of pneumonia. I spent total 36 min including 26 min to coordinate care plan. MAXIMO Voice ID: [id number] Report ID: [id number] KRISTEL
--- NOTE | 2017-11-21 11:45 | PN ---
Date of Progress Note: 11/19/2017 Chief Complaint: Acute kidney injury, severe, anuric, oliguric status post renal biopsy with severe diffuse prolifertive glomerulonephritis. History Of Present Illness: The patient is dialysis dependent. He developed acute kidney injury. Renal biopsy revealed proliferative disease with crescent formation corresponding with post infectious glomerulonephritis versus lupus. Lupus serologies is mostly negative. The patient likely has post infection glomerulonephritis and needs to be ruled out for endocarditis. I discussed case with nursing staff . The patient needs transesophageal echo to rule out vegetation. Blood cultures pending and preliminary blood culture result is negative. The patient was scheduled to have dialysis yesterday. Procedure was terminated early because of bradycardia. The patient was although asymptomatic, heart rate was 45 to 55. Carvedilol dose today was reduced from 6.25 twice a day to 3.125 twice a day. Review of Systems: Denies fever, chills. Denies nausea or vomiting. Physical Examination: Lungs: Clear to auscultation bilaterally. Heart: S1, S2. Abdomen: Soft, benign. Extremities: Edema present. Laboratory Data: WBC 8.5, hemoglobin 7.3, platelet count 231,000. Chemistry showed sodium 135, potassium 5.1, chloride 99, CO2 27, BUN 78, creatinine 8.43, and calcium 7.7. The hepatitis panel show , hepatitis C antibody 0.04. HIV is nonreactive. Rheumatoid factor positive. Cryoglobulin is ordered and not done yet and anti-GBM less than 1, ELKE screen is negative. Impression And Plan: 1. Acute kidney injury, severe, oliguric. The patient remains on dialysis. The patient will have dialysis today to control hyperkalemia. Continue low- potassium diet, renal diet. The patient will need to have further workup to rule out vegetation and posssible endocarditis, otherwise he needs to start on immunosuppressive medication for severe glomerulonephritis. Please see detail note of the renal biopsy result. 2. The patient will need Cytoxan infusion for glomerulonephritis as well as further comprehensive workup to rule out endocarditis. Chest x-ray showed possible infiltrates, recommend treatment for pneumonia. Pending culture. Adjust antibiotics as needed. 3. Cryoglobulinemia test is pending. The patient was found to have positive rheumatoid factor and workup is initiated to rule out cryoglobulinemia, although hepatitis panel is negative including hepatitis C. I spent total 36 min including 26 min to coordinate care plan. EB/MODL Voice ID: [id number] Report ID: [id number] KRISTEL
[2017-11-22 15:28] LABS: Scleroderma Antibody (Scl-70) <1.0 AI (<1.0)
[2017-11-22 20:41] LABS: Anti-Cardiolipin IgA Antibody <11 APL (<=11)
[2017-11-22 22:07] LABS: Albumin, (SPE) 2.5 g/dL (3.8-4.8); Alpha-1-Globulins 0.5 g/dL (0.2-0.3); Gamma Globulins 1.9 g/dL (0.8-1.7); INTERPRETATION REPORT
[2017-11-23 12:33] LABS: Complement (CH50), Total <10 U/mL (31-60)
--- NOTE | 2017-12-18 17:22 | DS ---
Date of Discharge: 11/19/2017 Date Of Transfer: 11/19/2017. Final Diagnoses: 1.Acute autoimmune glomerulonephritis causing renal failure. 2.Type 2 diabetes. 3.History of prostate cancer, on hormone therapy. 4.Sleep apnea syndrome. Hospital Course: This patient was admitted because of elevated BUN, creatinine, hyperkalemia, and di ffuse swelling of the body. The patient was found to have acute renal failure. The patient was brenden adam with initiation of hemodialysis. The patient after several courses of hemodialysis got stabilize d. At this point, the patient underwent a kidney biopsy, which showed evidence of autoimmune glomeru lonephritis. At this point, it was felt that he would need tertiary care requiring management for th e biopsy-proven diagnosis. The patient was transferred to [facility] for further management. Laboratory Data: Laboratory is extensive, please refer to the chart. TAYLER/BRIGIDA Voice ID: [id number] Report ID: [id number]
== END 2017-11-19 19:58 | disposition short-term general hospital (02) | DRG 674 ==
LOC: ER 08:40 → ERHOLD 11:21 → 4TH 15:21
PROVIDERS: ADMIT Family Medicine; ATTEND Internal Medicine
PROC: 05HM33Z Insertion of Infusion Device into Right Internal Jugular Vein, Percutaneous Approach (ICD-10-PCS; 2017-11-09)
PROC: 0JH60XZ Insertion of Tunneled Vascular Access Device into Chest Subcutaneous Tissue and Fascia, Open Approach (ICD-10-PCS; principal; 2017-11-09 12:00)
PROC: 0TB13ZX Excision of Left Kidney, Percutaneous Approach, Diagnostic (ICD-10-PCS; 2017-11-16)
PROC: 0JH60XZ Insertion of Tunneled Vascular Access Device into Chest Subcutaneous Tissue and Fascia, Open Approach (ICD-10-PCS; 2017-11-17)
PROC: 02HV33Z Insertion of Infusion Device into Superior Vena Cava, Percutaneous Approach (ICD-10-PCS; 2017-11-17)
DX: N17.9 Acute kidney failure, unspecified (principal); E87.1 Hypo-osmolality and hyponatremia; I47.2 Ventricular tachycardia; E87.5 Hyperkalemia; I27.20 Pulmonary hypertension, unspecified; D50.9 Iron deficiency anemia, unspecified; D89.1 Cryoglobulinemia; R00.1 Bradycardia, unspecified; N25.81 Secondary hyperparathyroidism of renal origin; I10 Essential (primary) hypertension; N40.0 Benign prostatic hyperplasia without lower urinary tract symptoms; N25.0 Renal osteodystrophy; N05.7 Unspecified nephritic syndrome with diffuse crescentic glomerulonephritis; E83.39 Other disorders of phosphorus metabolism; M10.9 Gout, unspecified
CPT/HCPCS: 36415; 50200; 71045; 71046; 71250; 74176; 76000; 76770; 78452; 80048; 80053; 80061; 80069; 80074; 80076; 81003; 81015; 82435; 82533; 82550; 82553; 82570; 82607; 82728; 82746; 82962; 83036; 83520; 83540; 83735; 83880; 83970; 84100; 84156; 84165; 84166; 84300; 84443; 84466; 84484; 85014; 85018; 85025; 85044; 85610; 85730; 86021; 86038; 86060; 86140; 86147; 86160; 86162; 86225; 86235; 86317; 86334; 86430; 86704; 86706; 86850; 86900; 86901; 87040; 87086; 87088; 87389; 87522; 88300; 90935; 93005; 93017; 93306; 94640; 96374; 99285; A9500; C1752; J0610; J0690; J1644; J1940; J2250; J2310; J2597; J2785; J3010; P9016; Q4081

== ENCOUNTER → 2018-07-25 | Day surgery (SDC) | payer OTHER ==
[~2018-07-25] MED LIST: NA CHLORIDE 0.9% 250 ML ONE
--- OUTSIDE RECORDS SUMMARY | 2018-07-25 09:27 | XMS REPORT | Clinical Summary ---
:1945 Author Organization [facility] Address [address] [place] [address] Care Team Providers Name Role Phone Asked, No Pcp Primary Care Provider Unavailable Allergies No Known Allergies Medications Medication Sig Dispensed Refills Start Date End Date Status aspirin (ECOTRIN) Take 81 mg by 0 Active 81 MG enteric mouth daily. coated tablet bimatoprost Administer 1 0 Active (LUMIGAN) 0.01 % drop to both ophthalmic drops eyes nightly. blood-glucose Use as 1 each 0 11/25/2017 Active meter (glucose instructed monitoring kit) kit tamsulosin Take 0.4 mg by 0 Active (FLOMAX) 0.4 mg mouth daily. capsule,extended release 24hr pantoprazole Take 40 mg by 0 Active (PROTONIX) 40 MG mouth daily. EC tablet ferrous sulfate Take 325 mg by 0 Active 325 (65 FE) MG mouth 2 (two) tablet times a day. sulfamethoxazole-t Take 1 tablet by 0 Active rimethoprim mouth every (BACTRIM SS) other day. 400-80 mg per tablet lisinopril Take 5 mg by 0 Active (PRINIVIL,ZESTRIL) mouth daily. 5 mg tablet vit B Take 1 tablet by 0 Active complex-vitamin mouth daily. C-folic acid (NEPHRO-ALICIA OTC) 0.8 mg tablet leuprolide, 3 Inject 22.5 mg 0 Discontinued month, (ELIGARD) under the skin 8 22.5 mg (3 month) once. syringe sulfamethoxazole-t Take 1 tablet by 30 tablet 0 11/25/2017 rimethoprim mouth daily for 8 (BACTRIM SS) 30 days. 400-80 mg per tablet carvedilol (COREG) Take 1 tablet 60 tablet 0 11/25/2017 3.125 MG tablet (3.125 mg total) 8 by mouth 2 (two) times a day for 30 days. nystatin Take 5 mL by 473 mL 0 11/25/2017 (MYCOSTATIN) mouth 4 (four) 8 100,000 unit/mL times a day for suspension 30 days. Swish in mouth tamsulosin Take 1 capsule 30 capsule 0 11/25/2017 (FLOMAX) 0.4 mg (0.4 mg total) 8 capsule,extended by mouth daily release 24hr for 30 days. sevelamer Take 1 tablet 90 tablet 0 11/25/2017 (RENVELA) 800 mg (800 mg total) 8 tablet by mouth 3 (three) times a day with meals for 30 days. ferrous sulfate Take 1 tablet 60 tablet 0 11/25/2017 325 (65 FE) MG (325 mg total) 8 tablet by mouth 2 (two) times a day with meals for 30 days. pantoprazole Take 1 tablet 30 tablet 0 11/26/2017 (PROTONIX) 40 MG (40 mg total) by 8 EC tablet mouth daily for 30 days. predniSONE 60mg oral daily 84 tablet 4 11/25/2017 Discontinued (DELTASONE) 10 mg for two weeks 8 tablet with slow taper, Reduce 10 mg every 2 weeks, until [id number] daily carvedilol (COREG) Take 3.125 mg by 0 Discontinued 3.125 MG tablet mouth 2 (two) 9 times a day with meals. sevelamer Take 800 mg by 0 Discontinued (RENAGEL) 800 MG mouth 3 (three) 9 tablet times a day with meals. ferrous sulfate Take 325 mg by 0 Discontinued 325 (65 FE) MG mouth daily with 8 tablet breakfast. predniSONE Take 10 mg by 0 Discontinued (DELTASONE) 10 mg mouth daily. 9 tablet amoxicillin-pot Take 1 tablet by 0 07/17/2018 clavulanate mouth 2 (two) 9 (AUGMENTIN) times a day. 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 progressive glomerulonephritis 11/24/2017 Normocytic anemia 11/24/2017 Other proteinuria 11/24/2017 Essential hypertension 11/24/2017 Acute renal failure 11/19/2017 Encounters Date Type Specialty Care Team Description 07/17/2018 - Hospital Encounter Oncology Ok Garcia, 07/18/2018 07/17/2018 Orders Only General Internal Ok Garcia, Medicine 06/05/2018 - Hospital Encounter General Internal Jong Aquino, 06/06/2018 Medicine 06/05/2018 Orders Only General Internal Jong Aquino, Medicine 05/02/2018 - Hospital Encounter General Internal Christopher Mckeon, 05/03/2018 Medicine Jong Olea, 05/02/2018 Orders Only General Internal Jong Aquino, Medicine 03/22/2018 Patient Outreach Quality Khalida Davey RN 03/21/2018 - Hospital Encounter General Internal Teja Varela 03/22/2018 Medicine MD Miles Phoenix Huy B., MD 03/21/2018 Orders Only General Internal Jong Aquino, Medicine 01/09/2018 - Hospital Encounter General Internal Jong Aquino, RPGN ( rapidly 01/11/2018 Medicine progressive [place], [facility] glomerulonephritis) MD Dimitris (Primary Dx) 01/09/2018 Orders Only General Internal Jong Aquino, Seamus JACKSON 01/06/2018 Emergency Emergency Medicine 11/19/2017 - Hospital Encounter Oncology Cle[place], Acute renal failure 11/25/2017 MD Prabha with other specified Badam, pathological lesion MD Ewelina in kidney (Primary Dx) after 07/24/2017 Family History Medical History Relation Name Comments Diabetes type II Maternal Grandmother Alzheimer's disease Sister Diabetes type II Sister Hypertension Sister Relation Name Status Comments Maternal Grandmother Sister Social History Tobacco Use Types Packs/Day Years Used Date Former Smoker 1 10 11/19/1969 - 07/22/1979 Smokeless Tobacco: Never Used Tobacco Cessation: Counseling Given: Yes Alcohol Use Drinks/Week oz/Week Comments Yes 3 Shots of liquor 1.8 per week Sex Assigned at Date Recorded Not on file Job Start Date Occupation Industry Not on file Not on file Not on file Travel History Travel Start Travel End No recent travel history available. Last Filed Vital Signs Vital Sign Reading Time Taken Blood Pressure 132/69 07/18/2018 12:31 PM [employer] SCIENCE [employer] Pulse 85 07/18/2018 12:31 PM [employer] PROF[employer]OR Temperature 36.3 C (97.4 F) 07/18/2018 12:31 PM [employer] SCI[employer] PROF[employer]OR Respiratory Rate 20 07/18/2018 12:31 PM [employer] SCI[employer] PROFESSOR Oxygen Saturation 97% 07/18/2018 12:31 PM [employer] SCI[employer] PROF[employer]OR Inhaled Oxygen Concentration - - Weight 76.9 kg (169 lb 7 oz) 06/05/2018 11:14 AM [employer]IAL SCIENCE PROFESSOR Height 157.5 cm (5' 2") 07/17/2018 10:15 AM [employer]IAL SCIENCE PROFESSOR Body Mass Index 30.99 06/05/2018 11:14 AM [employer]IAL SCIENCE PROFESSOR Plan of Treatment Health Maintenance Due Date Last Done Comments SHINGLES VACCINES (1 of 2) 1994 PNEUMOCOCCAL POLYSACCHARIDE VACCINE AGE 65 AND OVER 2009 PNEUMOCOCCAL-13 2009 INFLUENZA VACCINE 02/08/2018 COLON CANCER SCREENING 11/21/2027 11/20/2017 Procedures Procedure Name Priority Date/Time Associated Comments Diagnosis TRANSFUSE RED BLOOD Routine 07/18/2018 10:22 CELLS AM [employer] SCI[employer] PROF[employer]OR PREPARE RBC Timed 07/18/2018 8:45 Results for this AM [employer] SCI[employer] PROF[employer]OR procedure are in the results section. TYPE AND SCREEN Timed 07/18/2018 8:45 Results for this AM [employer] SCIENCE PROFESSOR procedure are in the results section. SMEAR REVIEW Routine 07/18/2018 5:15 Results for this AM [employer] SCIENCE PROFESSOR procedure are in the results section. HC COMPLETE BLD COUNT Routine 07/18/2018 5:15 Results for this W/AUTO DIFF AM [employer] SCIENCE PROFESSOR procedure are in the results section. ESTIMATED GFR Routine 07/18/2018 4:35 Results for this AM [employer] SCIENCE PROF[employer]OR procedure are in the results section. BASIC METABOLIC PANEL Routine 07/18/2018 4:35 Results for this AM [employer] SCIENCE PROFESSOR procedure are in the results section. ESTIMATED GFR Routine 07/17/2018 11:10 Results for this AM [employer] SCIENCE PROFESSOR procedure are in the results section. COMPREHENSIVE METABOLIC Routine 07/17/2018 11:10 Results for this PANEL AM ACTUARIAL SCIENCE PROFESSOR procedure are in the results section. HC COMPLETE BLD COUNT Routine 07/17/2018 11:10 Results for this W/AUTO DIFF AM [employer] SCIENCE PROFESSOR procedure are in the results section. HC COMPLETE BLD COUNT Routine 06/06/2018 4:15 Results for this W/AUTO DIFF AM ACT[employer] SCIENCE PROFESSOR procedure are in the results section. ESTIMATED GFR Routine 06/06/2018 4:00 Results for this AM [employer] SCIENCE PROFESSOR procedure are in the results section. BASIC METABOLIC PANEL Routine 06/06/2018 4:00 Results for this AM [employer] SCIENCE PROFESSOR procedure are in the results section. URINALYSIS SCREEN AND Routine 06/05/2018 3:30 Results for this MICROSCOPY, WITH REFLEX PM ACT[employer]IAL SCIENCE PROFESSOR procedure are in TO CULTURE the results section. GRAM STAIN Routine 06/05/2018 3:30 Results for this PM [employer] SCIENCE PROFESSOR procedure are in the results section. URINE CULTURE Routine 06/05/2018 3:30 Results for this PM [employer] SCIENCE PROFESSOR procedure are in the results section. ESTIMATED GFR STAT 06/05/2018 1:55 Results for this PM [employer] SCIENCE PROFESSOR procedure are in the results section. HC COMPLETE BLD COUNT STAT 06/05/2018 1:55 Results for this W/AUTO DIFF PM [employer] SCIENCE PROFESSOR procedure are in the results section. BASIC METABOLIC PANEL STAT 06/05/2018 1:55 Results for this PM [employer] SCIENCE PROFESSOR procedure are in the results section. HEMODIALYSIS Routine 05/03/2018 8:39 AM CDT HEPATITIS B SURFACE Routine 05/03/2018 8:13 Results for this ANTIGEN AM CDT procedure are in the results section. HC COMPLETE BLD COUNT Routine 05/03/2018 4:40 Results for this W/AUTO DIFF AM CDT procedure are in the results section. ESTIMATED GFR Routine 05/03/2018 4:00 Results for this AM CDT procedure are in the results section. PHOSPHORUS LEVEL Routine 05/03/2018 4:00 Results for this AM CDT procedure are in the results section. MAGNESIUM LEVEL Routine 05/03/2018 4:00 Results for this AM CDT procedure are in the results section. BASIC METABOLIC PANEL Routine 05/03/2018 4:00 Results for this AM CDT procedure are in the results section. HEMODIALYSIS Routine 05/03/2018 12:06 AM CDT BASIC METABOLIC PANEL STAT 05/02/2018 1:35 Results for this PM CDT procedure are in the results section. ESTIMATED GFR STAT 05/02/2018 1:35 Results for this PM CDT procedure are in the results section. HEMODIALYSIS Routine 03/22/2018 1:47 PM CDT HEPATITIS B SURFACE Routine 03/22/2018 1:08 Results for this ANTIGEN PM CDT procedure are in the results section. HC COMPLETE BLD COUNT Routine 03/22/2018 6:00 Results for this W/AUTO DIFF AM CDT procedure are in the results section. ESTIMATED GFR Routine 03/22/2018 4:00 Results for this AM CDT procedure are in the results section. BASIC METABOLIC PANEL Routine 03/22/2018 4:00 Results for this AM CDT procedure are in the results section. HC COMPLETE BLD COUNT STAT 03/21/2018 1:30 Results for this W/AUTO DIFF PM CDT procedure are in the results section. ESTIMATED GFR STAT 03/21/2018 12:51 Results for this PM CDT procedure are in the results section. BASIC METABOLIC PANEL STAT 03/21/2018 12:51 Results for this PM CDT procedure are in the results section. POC GLUCOSE Routine 01/11/2018 12:19 Results for this PM CDT procedure are in the results section. TRANSFUSE RED BLOOD Routine 01/11/2018 10:03 CELLS AM CDT HEMODIALYSIS Routine 01/11/2018 8:40 AM CDT HEPATITIS B SURFACE STAT 01/11/2018 7:47 Results for this ANTIGEN AM CDT procedure are in the results section. ZZESTIMATED GFR Routine 01/11/2018 5:11 Results for this AM CDT procedure are in the results section. BASIC METABOLIC PANEL Routine 01/11/2018 5:11 Results for this AM CDT procedure are in the results section. HC COMPLETE BLD COUNT Routine 01/11/2018 5:11 Results for this W/AUTO DIFF AM CDT procedure are in the results section. XR CHEST 1 VW PORTABLE STAT 01/10/2018 9:11 Results for this AM CDT procedure are in the results section. PREPARE RBC Timed 01/10/2018 4:15 Results for this AM CDT procedure are in the results section. TYPE AND SCREEN Routine 01/10/2018 4:15 Results for this AM CDT procedure are in the results section. B NATRIURETIC PEPTIDE Routine 01/10/2018 4:15 Results for this AM CDT procedure are in the results section. HC COMPLETE BLD COUNT Routine 01/10/2018 4:15 Results for this W/AUTO DIFF AM CDT procedure are in the results section. ZZESTIMATED GFR Routine 01/09/2018 8:35 Results for this PM CDT procedure are in the results section. COMPREHENSIVE METABOLIC Routine 01/09/2018 8:35 Results for this PANEL PM CDT procedure are in the results section. PARTIAL THROMBOPLASTIN Routine 01/09/2018 8:35 Results for this TIME (PTT) PM CDT procedure are in the results section. PROTHROMBIN TIME WITH Routine 01/09/2018 8:35 Results for this INR PM CDT procedure are in the results section. HC COMPLETE BLD COUNT Routine 01/09/2018 8:35 Results for this W/AUTO DIFF PM CDT procedure are in the results section. IMMUNOFIXATION, SERUM Routine 11/25/2017 2:04 Results for this PM CDT procedure are in the results section. SERUM ELECTROPHORESIS Routine 11/25/2017 2:04 Results for this PM CDT procedure are in the results section. POC GLUCOSE Routine 11/25/2017 12:40 Results for this PM CDT procedure are in the results section. POC GLUCOSE Routine 11/25/2017 8:06 Results for this AM CDT procedure are in the results section. SMEAR REVIEW Routine 11/25/2017 4:35 Results for this AM CDT procedure are in the results section. ZZESTIMATED GFR Routine 11/25/2017 4:35 Results for this AM CDT procedure are in the results section. VITAMIN D 25 HYDROXY Routine 11/25/2017 4:35 Results for this LEVEL AM CDT procedure are in the results section. IONIZED CALCIUM Routine 11/25/2017 4:35 Results for this AM CDT procedure are in the results section. PHOSPHORUS LEVEL Routine 11/25/2017 4:35 Results for this AM CDT procedure are in the results section. MAGNESIUM LEVEL Routine 11/25/2017 4:35 Results for this AM CDT procedure are in the results section. HC COMPLETE BLD COUNT Routine 11/25/2017 4:35 Results for this W/AUTO DIFF AM CDT procedure are in the results section. BASIC METABOLIC PANEL Routine 11/25/2017 4:35 Results for this AM CDT procedure are in the results section. POC GLUCOSE Routine 11/24/2017 9:09 Results for this PM CDT procedure are in the results section. HEMODIALYSIS Routine 11/24/2017 8:05 PM CDT POC GLUCOSE Routine 11/24/2017 5:08 Results for this PM CDT procedure are in the results section. IONIZED CALCIUM STAT 11/24/2017 10:05 Results for this AM CDT procedure are in the results section. PHOSPHORUS LEVEL Routine 11/24/2017 4:45 Results for this AM CDT procedure are in the results section. MAGNESIUM LEVEL Routine 11/24/2017 4:45 Results for this AM CDT procedure are in the results section. ZZESTIMATED GFR Routine 11/24/2017 4:45 Results for this AM CDT procedure are in the results section. KAPPA LAMBDA FREE LIGHT Routine 11/24/2017 4:45 Results for this CHAIN WITH RATIO AM CDT procedure are in the results section. COMPREHENSIVE METABOLIC Routine 11/24/2017 4:45 Results for this PANEL AM CDT procedure are in the results section. SMEAR REVIEW Routine 11/24/2017 4:15 Results for this AM CDT procedure are in the results section. PERIPHERAL SMEAR Routine 11/24/2017 4:15 Results for this AM CDT procedure are in the results section. HC COMPLETE BLD COUNT Routine 11/24/2017 4:15 Results for this W/AUTO DIFF AM CDT procedure are in the results section. POC GLUCOSE Routine 11/23/2017 2:03 Results for this PM CDT procedure are in the results section. HEPATITIS B CORE Routine 11/23/2017 11:25 Results for this ANTIBODY TOTAL AM CDT procedure are in the results section. HEPATITIS B SURFACE Routine 11/23/2017 11:25 Results for this ANTIBODY AM CDT procedure are in the results section. TB IN-TUBE QUANTIFERON Routine 11/23/2017 4:20 Results for this AM CDT procedure are in the results section. MANUAL DIFFERENTIAL Routine 11/23/2017 3:45 Results for this AM CDT procedure are in the results section. COMPREHENSIVE METABOLIC Routine 11/23/2017 3:45 Results for this PANEL AM CDT procedure are in the results section. BILIRUBIN DIRECT Routine 11/23/2017 3:45 Results for this AM CDT procedure are in the results section. ZZESTIMATED GFR Routine 11/23/2017 3:45 Results for this AM CDT procedure are in the results section. PHOSPHORUS LEVEL Routine 11/23/2017 3:45 Results for this AM CDT procedure are in the results section. MAGNESIUM LEVEL Routine 11/23/2017 3:45 Results for this AM CDT procedure are in the results section. CBC WITH PLATELET AND Routine 11/23/2017 3:45 Results for this DIFFERENTIAL AM CDT procedure are in the results section. MICROALBUMIN, URINE, Routine 11/22/2017 9:00 Results for this RANDOM PM CDT procedure are in the results section. SODIUM LEVEL, URINE, Routine 11/22/2017 9:00 Results for this RANDOM PM CDT procedure are in the results section. CREATININE LEVEL, URINE, Routine 11/22/2017 9:00 Results for this RANDOM PM CDT procedure are in the results section. PROTEIN, URINE, RANDOM Routine 11/22/2017 9:00 Results for this PM CDT procedure are in the results section. GASTROINTESTINAL PANEL Routine 11/22/2017 8:56 Results for this PM CDT procedure are in the results section. HEMODIALYSIS Routine 11/22/2017 8:55 PM CDT WEST NILE VIRUS BY PCR, Routine 11/22/2017 11:05 Results for this PLASMA AM CDT procedure are in the results section. CRYO, GLOBULIN AND Routine 11/22/2017 8:05 Results for this FIBRINOGEN AM CDT procedure are in the results section. BLOOD CULTURE, FUNGUS Routine 11/22/2017 8:05 Results for this AM CDT procedure are in the results section. URINALYSIS SCREEN AND Routine 11/22/2017 6:10 Results for this MICROSCOPY, WITH REFLEX AM CDT procedure are in TO CULTURE the results section. GRAM STAIN Routine 11/22/2017 6:10 Results for this AM CDT procedure are in the results section. URINE CULTURE Routine 11/22/2017 6:10 Results for this AM CDT procedure are in the results section. SMEAR REVIEW Routine 11/22/2017 4:40 Results for this AM CDT procedure are in the results section. ZZESTIMATED GFR Routine 11/22/2017 4:40 Results for this AM CDT procedure are in the results section. HEPATITIS ACUTE PANEL Routine 11/22/2017 4:40 Results for this AM CDT procedure are in the results section. RADU OSULLIVAN VIRUS (EBV) Routine 11/22/2017 4:40 Results for this BY PCR AM CDT procedure are in the results section. CYTOMEGALOVIRUS BY PCR Routine 11/22/2017 4:40 Results for this AM CDT procedure are in the results section. HIV AG/AB COMBINATION Routine 11/22/2017 4:40 Results for this AM CDT procedure are in the results section. THYROID STIMULATING Routine 11/22/2017 4:40 Results for this HORMONE AM CDT procedure are in the results section. HEMOGLOBIN A1C Routine 11/22/2017 4:40 Results for this AM CDT procedure are in the results section. BASIC METABOLIC PANEL Routine 11/22/2017 4:40 Results for this AM CDT procedure are in the results section. HC COMPLETE BLD COUNT Routine 11/22/2017 4:40 Results for this W/AUTO DIFF AM CDT procedure are in the results section. US RENAL Routine 11/21/2017 4:45 Results for this PM CDT procedure are in the results section. RESPIRATORY PATHOGEN Routine 11/21/2017 3:45 Results for this PANEL PM CDT procedure are in the results section. HEMODIALYSIS Routine 11/21/2017 9:42 AM CDT POC GLUCOSE Routine 11/21/2017 8:33 Results for this AM CDT procedure are in the results section. MANUAL DIFFERENTIAL Routine 11/21/2017 8:19 Results for this AM CDT procedure are in the results section. ZZESTIMATED GFR Routine 11/21/2017 8:19 Results for this AM CDT procedure are in the results section. HEPATITIS B SURFACE Routine 11/21/2017 8:19 Results for this ANTIGEN AM CDT procedure are in the results section. BASIC METABOLIC PANEL Routine 11/21/2017 8:19 Results for this AM CDT procedure are in the results section. CBC WITH PLATELET AND Routine 11/21/2017 8:19 Results for this DIFFERENTIAL AM CDT procedure are in the results section. IMMUNOFIXATION, SERUM Routine 11/21/2017 5:50 Results for this AM CDT procedure are in the results section. MANUAL DIFFERENTIAL Routine 11/21/2017 5:50 Results for this AM CDT procedure are in the results section. MAGNESIUM LEVEL Routine 11/21/2017 5:50 Results for this AM CDT procedure are in the results section. PHOSPHORUS LEVEL Routine 11/21/2017 5:50 Results for this AM CDT procedure are in the results section. ZZESTIMATED GFR Routine 11/21/2017 5:50 Results for this AM CDT procedure are in the results section. SERUM ELECTROPHORESIS Routine 11/21/2017 5:50 Results for this AM CDT procedure are in the results section. FERRITIN LEVEL Routine 11/21/2017 5:50 Results for this AM CDT procedure are in the results section. GLOMERULAR BASEMENT Routine 11/21/2017 5:50 Results for this MEMBRANE AB IGG (IFA) AM CDT procedure are in the results section. ANTISTREPTOLYSIN O Routine 11/21/2017 5:50 Results for this AM CDT procedure are in the results section. TOTAL IRON BINDING Routine 11/21/2017 5:50 Results for this CAPACITY AM CDT procedure are in the results section. RETICULOCYTE COUNT Routine 11/21/2017 5:50 Results for this AM CDT procedure are in the results section. BASIC METABOLIC PANEL Routine 11/21/2017 5:50 Results for this AM CDT procedure are in the results section. CBC WITH PLATELET AND Routine 11/21/2017 5:50 Results for this DIFFERENTIAL AM CDT procedure are in the results section. BLOOD CULTURE, AEROBIC & Routine 11/21/2017 5:50 Results for this ANAEROBIC AM CDT procedure are in the results section. URINE EOSINOPHILS Routine 11/20/2017 7:00 Results for this AM CDT procedure are in the results section. OCCULT BLOOD, STOOL Routine 11/20/2017 7:00 Results for this AM CDT procedure are in the results section. SMEAR REVIEW Routine 11/20/2017 4:30 Results for this AM CDT procedure are in the results section. ANTI-NEUTROPHILIC Routine 11/20/2017 4:30 Results for this CYTOPLASMIC ABS PANEL AM CDT procedure are in the results section. C3 COMPLEMENT COMPONENT Routine 11/20/2017 4:30 Results for this AM CDT procedure are in the results section. C4 COMPLEMENT COMPONENT Routine 11/20/2017 4:30 Results for this AM CDT procedure are in the results section. LIPID PANEL Routine 11/20/2017 4:30 Results for this AM CDT procedure are in the results section. RHEUMATOID FACTOR Routine 11/20/2017 4:30 Results for this AM CDT procedure are in the results section. URINALYSIS, AUTOMATED Routine 11/20/2017 4:30 Results for this WITH MICROSCOPY AM CDT procedure are in the results section. ZZESTIMATED GFR Routine 11/20/2017 4:30 Results for this AM CDT procedure are in the results section. BASIC METABOLIC PANEL Routine 11/20/2017 4:30 Results for this AM CDT procedure are in the results section. HC COMPLETE BLD COUNT Routine 11/20/2017 4:30 Results for this W/AUTO DIFF AM CDT procedure are in the results section. XR CHEST 1 VW PORTABLE Routine 11/19/2017 11:26 Results for this PM CDT procedure are in the results section. ECG 12-LEAD Routine 11/19/2017 10:19 Results for this PM CDT procedure are in the results section. SEDIMENTATION RATE Routine 11/19/2017 10:10 Results for this PM CDT procedure are in the results section. B NATRIURETIC PEPTIDE Routine 11/19/2017 10:10 Results for this PM CDT procedure are in the results section. C-REACTIVE PROTEIN Routine 11/19/2017 10:10 Results for this PM CDT procedure are in the results section. PHOSPHORUS LEVEL Routine 11/19/2017 10:10 Results for this PM CDT procedure are in the results section. MAGNESIUM LEVEL Routine 11/19/2017 10:10 Results for this PM CDT procedure are in the results section. MANUAL DIFFERENTIAL Routine 11/19/2017 10:10 Results for this PM CDT procedure are in the results section. ZZESTIMATED GFR Routine 11/19/2017 10:10 Results for this PM CDT procedure are in the results section. COMPREHENSIVE METABOLIC Routine 11/19/2017 10:10 Results for this PANEL PM CDT procedure are in the results section. CBC WITH PLATELET AND Routine 11/19/2017 10:10 Results for this DIFFERENTIAL PM CDT procedure are in the results section. after 07/24/2017 Results Prepare RBC, 1 Units (07/18/2018 8:45 AM ACTU[employer]IAL SCIENCE PROFESSOR)Only the most recent of2 resultswithin the time period is included. Product name Apheresis Red Cell AS3 #1 LR [facility] Unit number [id number] [facility] Product code [id number] [facility] [place] [facility] Dispense status Transfused [facility] Blood expiration date [facility] Blood type code 5100 [facility] [place] [facility] Blood type O POSITIVE [facility] Performing Organization Address City/[facility] Phone Number [facility] DEPARTMENT OF [facility] AND [address] [place] [address] Type and screen (07/18/2018 8:45 AM ACTUARIAL SCIENCE PROFESSOR)Only the most recent of2 resultswithin the time period is included. ABO grouping O [facility] Rh type POS [facility] Antibody screen (gel) NEG [facility] Specimen Blood Performing Organization Address City/[facility] Phone Number [facility] DEPARTMENT OF PATHOLOGY AND [address] [place] [address] Smear review (07/18/2018 5:15 AM ACTUARIAL SCIENCE PROFESSOR)Only the most recent of5 resultswithin the time period is included. Platelet slide review Mindy adequate [facility] Anisocytosis Moderate [facility] Polychromasia Moderate [facility] Basophilic stippling Occasional [facility] Ovalocytes Moderate [facility] Performing Organization Address City/[facility] Phone Number [facility] DEPARTMENT OF PATHOLOGY AND [address] [place] [address] GENOMIC MEDICINE [address] [address] CBC with platelet and differential (07/18/2018 5:15 AM ACTUARIAL SCIENCE PROFESSOR)Only the most recent of18 resultswithin the time period is included. WBC 4.99 4.50 - 11.00 k/uL [facility] RBC 2.19 (L) 4.40 - 6.00 m/uL [facility] HGB 6.8 (LL) 14.0 - 18.0 g/dL [facility] Comment: HOSPITAL HGB results called to and read back by BERTHA POZO/MMWTAlexander at07/18/2018 06:04 by TIMMY. HCT 22.0 (L) 41.0 - 51.0 % [facility] MCV 100.5 (H) 82.0 - 100.0 fL [facility] MCH 31.1 27.0 - 34.0 pg [facility] MCHC 30.9 (L) 31.0 - 37.0 g/dL [facility] RDW - SD 49.1 37.0 - 55.0 fL [facility] MPV 10.5 8.8 - 13.2 fL [facility] Platelet count 199 150 - 400 k/uL [facility] Nucleated RBC 0.00 /100 WBC [facility] Neutrophils 92.2 (H) 39.0 - 69.0 % [facility] Lymphocytes 6.0 (L) 25.0 - 45.0 % [facility] Monocytes 0.8 0.0 - 10.0 % [facility] Eosinophils 0.2 0.0 - 5.0 % [facility] Basophils 0.2 0.0 - 1.0 % [facility] Immature granulocytes 0.6Comment: "Immature 0.0 - 1.0 % [facility] granulocytes" [facility] (promyelocytes, myelocytes, metamyelocytes) Specimen Blood Performing Organization Address City/[facility]/Zipcode Phone Number [facility] DEPARTMENT OF PATHOLOGY AND [address] [place] [address] Estimated GFR (07/18/2018 4:35 AM ACTUARIAL SCIENCE PROFESSOR)Only the most recent of8 resultswithin the time period is included. Estimated GFR 32 (A) mL/min/1.73 m2 [facility] Comment: HOSPITAL CatergoryUnitsInterpretation G1 >=90 Normal or high G2 60-89Mildly decreased [id number] to moderately decreased [id number] to severely decreased G4 15-29Severely decreased G5 <15Kidney failure The eGFR was calculated using the Chronic Kidney Disease Epidemiology Collaboration (CKD-EPI) equation. Interpretation is based on recommendations of the National Kidney Foundation-Kidney Disease Outcomes Quality Initiative (NKF-KDOQI) published in 2014. Specimen Plasma specimen Performing Organization Address City/[facility] Phone Number [facility] DEPARTMENT OF PATHOLOGY AND [address] [place] [address] Basic metabolic panel (07/18/2018 4:35 AM ACTUARIAL SCIENCE PROFESSOR)Only the most recent of13 resultswithin the time period is included. Sodium 141 135 - 148 mEq/L [facility] Potassium 4.7 3.5 - 5.0 mEq/L [facility] Chloride 103 98 - 112 mEq/L [facility] CO2 26 24 - 31 mEq/L [facility] Anion gap 12@ANIO 7 - 15 mEq/L [facility] BUN 45 (H) 8 - 23 mg/dL [facility] Creatinine 1.98 (H) 0.70 - 1.20 mg/dL [facility] Glucose 175 (H) 65 - 99 mg/dL [facility] Calcium 8.7 (L) 8.8 - 10.2 mg/dL [facility] Specimen Plasma specimen Performing Organization Address City/[facility]/Zipcode Phone Number [facility] DEPARTMENT OF PATHOLOGY AND [address] [place] [address] Comprehensive metabolic panel (07/17/2018 11:10 AM ACTUARIAL SCIENCE PROFESSOR)Only the most recent of5 resultswithin the time period is included. Sodium 144 135 - 148 mEq/L [facility] Potassium 3.7 3.5 - 5.0 mEq/L [facility] Chloride 104 98 - 112 mEq/L [facility] CO2 28 24 - 31 mEq/L [facility] Anion gap 12@ANIO 7 - 15 mEq/L [facility] BUN 42 (H) 8 - 23 mg/dL [facility] Creatinine 1.98 (H) 0.70 - 1.20 mg/dL [facility] Glucose 118 (H) 65 - 99 mg/dL [facility] Calcium 8.8 8.8 - 10.2 mg/dL [facility] Protein 6.3 6.3 - 8.3 g/dL [facility] Comment: HOSPITAL 4.6-7.0 g/dL 1 week 4.4-7.6 g/dL 7 months-1year5.1-7.3 g/dL 1-2 years5.6-7.5 g/dL >3 years6.0-8.0 g/dL 18-150 6.3-8.3 g/dL Albumin 2.6 (L) 3.5 - 5.0 g/dL [facility] A/G ratio 0.7 0.7 - 3.8 [facility] Alkaline phosphatase 76 40 - 129 U/L [facility] AST 18 10 - 50 U/L [facility] ALT 12 5 - 50 U/L [facility] Total bilirubin <0.2 0.0 - 1.2 mg/dL [facility] Specimen Plasma specimen Performing Organization Address City/State/Zipcode Phone Number [facility] DEPARTMENT OF PATHOLOGY AND [address] [place] [address] GENOMIC MEDIC[address] [address] Urinalysis screen and microscopy, with reflex to culture (06/05/2018 3:30 PM ACTUARIAL SCIENCE PROFESSOR)Only the most recent of2 resultswithin the time period is included. Specimen site Clean catch [facility] Color, UA Straw [facility] Appearance, UA Clear [facility] Specific gravity, UA 1.009 1.001 - 1.035 [facility] pH, UA 6.0 5.0 - 8.5 [facility] Protein, UA 2+ (A) Negative [facility] Glucose, UA Negative Negative [facility] Ketones, UA Negative Negative [facility] Bilirubin, UA Negative Negative [facility] Blood, UA Negative Negative [facility] Nitrite, UA Negative Negative [facility] Urobilinogen, UA <2.0 <2.0 [facility] Leukocyte esterase, UA Trace (A) Negative [facility] WBC, UA 17 (H) 0 - 1 /HPF [facility] RBC, UA 2 0 - 5 /HPF [facility] Bacteria, UA None seen None seen [facility] Yeast, UA None seen [facility] Yeast with pseudohyphae, UA None seen [facility] Hyaline casts, UA 1 /LPF [facility] Specimen Urine Performing Organization Address City/[facility]ode Phone Number [facility] DEPARTMENT OF PATHOLOGY AND [address] [place] [phone] Gram stain (06/05/2018 3:30 PM ACTUARIAL SCIENCE PROFESSOR)Only the most recent of2 resultswithin the time period is included. Gram stain result Rare WBC's [facility] No organisms seen Comment: Specimen Information Specimen Source: Urine Specimen Site: Clean catch Specimen Urine Performing Organization Address City/[facility] Phone Number [facility] DEPARTMENT OF PATHOLOGY AND [address] [place] [phone] Urine culture (06/05/2018 3:30 PM ACTUARIAL SCIENCE PROFESSOR)Only the most recent of2 resultswithin the time period is included. Urine culture isolate susceptibility testing.Culture is being reincubated for [facility] growth. HOSPITAL Mixed krystal <=10-3 col/cc (A) Comment: Specimen Information Specimen Source: Urine Specimen Site: Clean catch Urine culture isolate Enterococcus faecalis [facility] 10-5 cfu/ml HOSPITAL The performance characteristics of this assay on this isolate were validated by the Microbiology Laboratory at [facility].This source has not been approved by the U.S. Food and Drug Administration.The results are not intended to be used as the sole means for clinical diagnosis or patient management.The Microbiology Laboratory is authorized under the clinical Laboratory Improvement Amendments of 1988 (CLIA-88) to perform high complexity testing. This organism is Vancomycin Sensitive. (A) Specimen Urine Organism Antibiotic Method Susceptibility Enterococcus faecalis Ampicillin EDD 1 mcg/mL: Susceptible Enterococcus faecalis Nitrofurantoin EDD <=16 mcg/mL: Susceptible Enterococcus faecalis Levofloxacin EDD <=1 mcg/mL: Susceptible Enterococcus faecalis Linezolid EDD 2 mcg/mL: Susceptible Enterococcus faecalis Minocycline EDD <=1 mcg/mL: Susceptible Enterococcus faecalis Tetracycline EDD <=0.5 mcg/mL: Susceptible Enterococcus faecalis Vancomycin EDD 1 mcg/mL: Susceptible Performing Organization Address [facility] Phone Number [facility] DEPARTMENT OF PATHOLOGY AND [address] [place] [address] Hepatitis B surface antigen (05/03/2018 8:13 AM CDT)Only the most recent of4 resultswithin the time period is included. Hepatitis B surface Ag Non-reactive Non-reactive [facility] DEPARTMENT OF PATHOLOGY AND GENOMIC MEDICINE Specimen Blood Performing Organization Address [facility] Phone Number [facility] DEPARTMENT OF PATHOLOGY AND [address] [place] [address] Phosphorus level (05/03/2018 4:00 AM CDT)Only the most recent of6 resultswithin the time period is included. Phosphorus 4.2 2.4 - 4.5 mg/dL [facility] DEPARTMENT OF PATHOLOGY AND GENOMIC [facility] Specimen Plasma specimen Performing Organization Address [facility] Phone Number [facility] DEPARTMENT OF PATHOLOGY AND [address] [place] [address] Magnesium level (05/03/2018 4:00 AM CDT)Only the most recent of6 resultswithin the time period is included. Magnesium 1.8 1.6 - 2.4 mg/dL [facility] DEPARTMENT OF PATHOLOGY AND GENOMIC MEDICINE Specimen Plasma specimen Performing Organization Address [facility] Phone Number [facility] DEPARTMENT OF PATHOLOGY AND [address] [place] [address] POC glucose (01/11/2018 12:19 PM CDT)Only the most recent of7 resultswithin the time period is included. POC glucose 138 (H) 65 - 99 mg/dL [facility] DEPARTMENT OF PATHOLOGY AND Comment: [facility] Notified RN Meter ID: [id number] Fitting Room Operator: Tamirat Beronica Performing Organization Address [facility]/State/Zipcode Phone Number [facility] DEPARTMENT OF PATHOLOGY AND [address] [place] [address] GENOMIC MEDICINE Transfuse RBC (01/11/2018 10:03 AM CDT)Only the most recent of2 resultswithin the time period is included.Estimated GFR (01/11/2018 5:11 AM CDT)Only the most recent of10 resultswithin the time period is included. GFR Non Af Amer 25 (A) mL/min/1.73 m2 [facility] DEPARTMENT OF PATHOLOGY AND GENOMIC MEDICINE GFR Af Amer 31 (A) mL/min/1.73 m2 [facility] DEPARTMENT OF Comment: PATHOLOGY AND GENOMIC Chronic kidney disease: <60 mL/min/1.73m2 MEDICINE Kidney failure: <15 mL/min/1.73m2 The estimated GFR is calculated from the IDMS-traceable Modification of Diet in Renal Disease Equation. The accuracy of the calculation is poor when the creatinine is normal. Calculated values >90 mL/min/1.73m2 are not reported. This equation has not been validated in children (<18 years), women, the elderly (>70 years), or ethnic groups other than Caucasians and Americans. Specimen Plasma specimen Performing Organization Address [facility] Cent[facility]ode Phone Number [facility] DEPARTMENT OF PATHOLOGY AND [address] [place] [address] [facility] XR Chest 1 Vw Portable (01/10/2018 9:11 AM CDT)Only the most recent of2 resultswithin the time period is included. Narrative Performed At EXAMINATION:XR CHEST 1 VW PORTABLE [facility] CLINICAL HISTORY:RALES COMPARISON:None IMPRESSION: 1.Right jugular catheter extends into the superior vena cava. There is no pneumothorax. 2.Vascular congestion and interstitial prominence has diffusely improved since the prior study. [id number] Procedure Note Hm Interface, Radiology Results Incoming - 01/10/2018 9:17 AM CDT EXAMINATION: XR CHEST 1 VW PORTABLE CLINICAL HISTORY: RALES COMPARISON: None IMPRESSION: 1. Right jugular catheter extends into the superior vena cava. There is no pneumothorax. 2. Vascular congestion and interstitial prominence has diffusely improved since the prior study. [id number] Performing Organization Address City/[facility]/Zipcode Phone Number [facility] [address] [place] [address] B natriuretic peptide (01/10/2018 4:15 AM CDT)Only the most recent of2 resultswithin the time period is included. BNP 280 (H) 0 - 100 pg/mL [facility] DEPARTMENT OF PATHOLOGY AND [facility] Specimen Blood Performing Organization Address [facility] Phone Number [facility] DEPARTMENT OF PATHOLOGY AND [address] [place] [address] Partial thromboplastin time, activated (01/09/2018 8:35 PM CDT) PTT 36.0 23.0 - 36.0 sec [facility] DEPARTMENT OF PATHOLOGY Comment: AND [facility] PTT therapeutic range for unfractionated heparin is 61.0-112.0 seconds which corresponds to Anti-Xa 0.3-0.7 U/ml. Specimen Blood Performing Organization Address [facility] Phone Number [facility] DEPARTMENT OF PATHOLOGY AND [address] [place] [address] Prothrombin time with INR (01/09/2018 8:35 PM CDT) Prothrombin time 14.3 12.0 - 15.0 sec [facility] DEPARTMENT OF PATHOLOGY AND GENOMIC MEDICINE INR 1.1 [facility] DEPARTMENT OF Comment: PATHOLOGY AND GENOMIC The International Normalized Ratio (INR) is a therapeutic MEDICINE monitoring tool for patients who are stable on oral anticoagulant therapy. An INR of 2.0-3.0 is suggested for deep vein thrombosis/pulmonary embolism. Specimen Blood Performing Organization Address [facility] Phone Number [facility] DEPARTMENT OF PATHOLOGY AND [address] [place] [address] Immunofixation, serum (11/25/2017 2:04 PM CDT) Immunofixation, serum SEE COMMENTComment: See [facility] DEPARTMENT OF electrophoresis report below. PATHOLOGY AND [facility] Specimen Serum Performing Organization Address [facility] Centercoms Phone Number [facility] DEPARTMENT OF PATHOLOGY AND [address] [place] [address] Serum electrophoresis (11/25/2017 2:04 PM CDT)Only the most recent of2 resultswithin the time period is included. Protein 6.0 (L) 6.3 - 8.3 g/dL [facility] DEPARTMENT OF Comment: PATHOLOGY AND Orient 4.6-7.0 g/dL GENOMIC MEDICINE 1 week 4.4-7.6 g/dL 7 months-1year5.1-7.3 g/dL 1-2 years5.6-7.5 g/dL >3 years6.0-8.0 g/dL 18-150 6.3-8.3 g/dL SPE albumin 3.10 (L) 4.00 - 5.30 [facility] DEPARTMENT OF g/dL PATHOLOGY AND GENOMIC MEDICINE SPE alpha 1 0.16 0.10 - 0.25 [facility] DEPARTMENT OF g/dL PATHOLOGY AND GENOMIC MEDICINE SPE alpha 2 0.91 (H) 0.58 - 0.84 [facility] DEPARTMENT OF g/dL PATHOLOGY AND GENOMIC MEDICINE SPE beta 0.60 0.50 - 1.10 [facility] DEPARTMENT OF g/dL PATHOLOGY AND GENOMIC MEDICINE SPE gamma 1.23 0.60 - 1.30 [facility] DEPARTMENT OF g/dL PATHOLOGY AND GENOMIC MEDICINE SPE extended See Comment [facility] DEPARTMENT OF interpretation Comment: PATHOLOGY AND Compared to the study dated 11/21/2017, the previously identified multiple GENOMIC MEDICINE faint bands in the gamma region are still present on immunofixation electrophoresis. The 2 monoclonal IgG [place] bands and the monoclonal Lambda light chain band are still present and have remained at the combined concentration of 0.6 g/dL. Also, there is an area of increased staining for IgA heavy chain in the beta region; however, no definitive band is identified and no corresponding light chain band is seen. The significance of this latter finding is uncertain. Uninvolved gamma globulins are not decreased and an acute phase pattern with decreased total protein is noted. SPE interpretation See CommentComment: [facility] DEPARTMENT OF Michael Grimaldo MD; PATHOLOGY AND Ronald Garibay MD/PhD [facility] Specimen Serum Performing Organization Address City/State/Zipcode Phone Number [facility] DEPARTMENT OF PATHOLOGY AND [address] [place] [address] [facility] Vitamin D 25 hydroxy level (11/25/2017 4:35 AM CDT) Vitamin D, 25-hydroxy 20.0 (L) 30.0 - 150.0 [facility] DEPARTMENT OF Comment: ng/mL PATHOLOGY AND GENOMIC This assay reports the sum of 25-hydroxy vitamin D3 and 25-hydroxy vitamin MEDICINE D2. Reference range: 0-17 years: Deficiency: less than 20ng/mL Optimum level: greater than or equal to 20 ng/mL. 18 years and older: Deficiency: less than 20ng/mL Insufficiency: 20-29 ng/mL Optimum Level: 30-80 ng/mL The assay reportable range is 3.4155.9 ng/mL. Levels higher than 150 ng/mL may be associated with toxicity. If toxicity is clinically suspected and the reported result is >155.9 ng/mL,contact lab for alternative methods to obtain a definitivelevel. If separate quantitation of 25-hydroxy vitamin D3 and 25-hydroxy vitamin D2 is needed, please contact lab for alternative methods. Specimen Blood Performing Organization Address City/[facility] Phone Number [facility] DEPARTMENT OF PATHOLOGY AND [address] [place] [address] Ionized calcium (11/25/2017 4:35 AM CDT)Only the most recent of2 resultswithin the time period is included. pH 7.46 [facility] DEPARTMENT OF PATHOLOGY AND GENOMIC MEDICINE Ionized calcium 1.05 (L) 1.11 - 1.32 mmol/L [facility] DEPARTMENT OF PATHOLOGY AND [facility] Specimen Plasma specimen Performing Organization Address [facility] Centercode Phone Number [facility] DEPARTMENT OF PATHOLOGY AND [address] [place] [address] [place] lambda free light chain with ratio (11/24/2017 4:45 AM CDT) [place] light chain 181.88 (H) 3.30 - 19.40 mg/L [facility] DEPARTMENT OF PATHOLOGY AND GENOMIC MEDICINE Lambda light chain 64.07 (H) 5.70 - 26.30 mg/L [facility] DEPARTMENT OF PATHOLOGY AND [facility] [place] lambda ratio 2.84 (H) 0.26 - 1.65 [facility] DEPARTMENT OF PATHOLOGY AND [facility] Specimen Plasma specimen Performing Organization Address [facility] Centercode Phone Number [facility] DEPARTMENT OF PATHOLOGY AND [address] [place] [address] [facility] Peripheral smear (11/24/2017 4:15 AM CDT) Peripheral smear Done [facility] DEPARTMENT OF PATHOLOGY Comment: AND [facility] Peripheral smear is located in Hematology Laboratory, second floor of [facility]. Performing Organization Address City/[facility]/Zipcode Phone Number [facility] DEPARTMENT OF PATHOLOGY AND [address] [place] [address] [facility] Hepatitis B core antibody total (11/23/2017 11:25 AM CDT) Hepatitis B core total Ab Non-reactive Non-reactive [facility] DEPARTMENT OF PATHOLOGY AND [facility] Specimen Blood Performing Organization Address City/[facility]ode Phone Number [facility] DEPARTMENT OF PATHOLOGY AND [address] [place] [phone] [place] [address] Hepatitis B surface antibody (11/23/2017 11:25 AM CDT) Hepatitis B surface Ab Non-reactive Non-reactive [facility] DEPARTMENT OF PATHOLOGY AND [facility] Specimen Blood Performing Organization Address [facility] Centercode Phone Number [facility] DEPARTMENT OF PATHOLOGY AND [address] [place] [phone] [place] [address] TB IN-TUBE Quantiferon (11/23/2017 4:20 AM CDT) TB IN-TUBE Quantiferon SEE NOTE [facility] DEPARTMENT OF Comment: PATHOLOGY AND GENOMIC Quantiferon TB Gold In-Tube MEDICINE Test Results: QUANTITATIVE NIL: 0.02 QUANTITATIVE ANTIGEN: 0.02 QUANTITATIVE MITOGEN: 0.03 QUANTITATIVE ANTIGEN-NIL: 0 QUANTITATIVE MITOGEN-NIL: 0.01 QUALITATIVE INTERPRETATION: INDETERMINANT (Reference: negative) INTERFERON GAMMA CONCENTRATIONS EXPRESSED IN IU/ML. RESULT INTERPRETATION RESULTS ARE NEGATIVE UNDER THE FOLLOWING CONDITIONS: (Antigen - Nil) < 0.35 and (Mitogen - Nil) >=0.5 RESULTS ARE POSITIVE UNDER THE FOLLOWING CONDITIONS: (ANTIGEN-NIL) > 0.35 AND (ANTIGEN-NIL) >=25% OF NIL RESULTS ARE INDETERMINATE IF ANY OF THE FOLLOWING 3 CONDITIONS ARE MET: 1. (ANTIGEN-NIL) < 0.35 AND (MITOGEN-NIL) < 0.5 2. (ANTIGEN-NIL) >=0.35 AND (ANTIGEN-NIL) < 25% OF NIL AND (MITOGEN-NIL) < 0.5 3. NIL > 8.0 LIMITATIONS: Quantiferon TB In-Tube is an indirect test for M. tuberculosis infection (including disease).Diagnosing or excluding tuberculosis disease, and assessing the probability of LTBI, require a combination of epidemiological, historical, medical and diagnostic findings that should be taken into account when interpreting Quantiferon TB Gold results.See general guidance on the diagnosis and treatment of TB disease and LTBI: http://www.cdc.gov.nchstp/tb/ M. tuberculosis infection cannot be excluded especially when: 1. any illness is consistent with TB disease. 2. likelihood of progression to disease (e.g. due to immunosuppression) is increased. NOTE:The cut-point for the Quantiferon TB In-tube test is 0.35 IU/mL above the NIL control. Warning: The performance of the Quantiferon TB test has not been evaluated with specimens from the following group of individuals: 1. Individuals who have impaired or altered immune function (HIV infection or immunosuppressive treatment). 2. Individuals younger than age 17 years. 3. women. Test performed by: [facility] [address] lab: [phone] fax: [phone] Specimen Blood Performing Organization Address City/[facility] Centercode Phone Number [facility] AND [address] [place] [address] GENOMIC MEDICINE Manual differential (11/23/2017 3:45 AM CDT)Only the most recent of4 resultswithin the time period is included. Manual differential PERFORMED [facility] DEPARTMENT OF PATHOLOGY AND GENOMIC MEDICINE Neutrophils 94.0 (H) 39.0 - 69.0 % [facility] DEPARTMENT OF PATHOLOGY AND GENOMIC MEDICINE Lymphocytes 3.0 (L) 25.0 - 45.0 % [facility] DEPARTMENT OF PATHOLOGY AND GENOMIC MEDICINE Monocytes 1.0 0.0 - 10.0 % [facility] DEPARTMENT OF PATHOLOGY AND GENOMIC MEDICINE Eosinophils 0.0 0.0 - 5.0 % [facility] DEPARTMENT OF PATHOLOGY AND GENOMIC MEDICINE Basophils 0.0 0.0 - 1.0 % [facility] DEPARTMENT OF PATHOLOGY AND GENOMIC MEDICINE Metamyelocytes 2 % [facility] DEPARTMENT OF PATHOLOGY AND GENOMIC MEDICINE Promyelocytes 0 % [facility] DEPARTMENT OF PATHOLOGY AND GENOMIC MEDICINE Platelet slide review Mindy adequate [facility] DEPARTMENT OF PATHOLOGY AND GENOMIC MEDICINE Neutrophils, vacuolated Slight [facility] DEPARTMENT OF PATHOLOGY AND GENOMIC MEDICINE Anisocytosis Moderate [facility] DEPARTMENT OF PATHOLOGY AND GENOMIC MEDICINE Polychromasia Moderate [facility] DEPART[facility] OF PATHOLOGY AND GENOMIC MEDICINE Basophilic stippling Occasional [facility] DEPARTMENT OF PATHOLOGY AND GENOMIC MEDICINE Ovalocytes Moderate [facility] DEPARTMENT OF PATHOLOGY AND GENOMIC MEDICINE Enlarged platelets Moderate (A) [facility] DEPARTMENT OF PATHOLOGY AND GENOMIC MEDICINE Giant platelets Occasional [facility] DEPARTMENT OF PATHOLOGY AND GENOMIC MEDICINE Performing Organization Address City/[facility] Centercode Phone Number [facility] DEPARTMENT OF PATHOLOGY AND [address] [place] [address] [facility] MEDICINE Bilirubin direct (11/23/2017 3:45 AM CDT) Bilirubin direct <0.2 0.0 - 0.3 mg/dL [facility] DEPARTMENT OF PATHOLOGY AND GENOMIC MEDICINE Specimen Plasma specimen Performing Organization Address City/[facility] Centercode Phone Number [facility] DEPARTMENT OF PATHOLOGY AND [address] [place] [phone] GENOMIC MEDICINE Microalbumin, urine, random (11/22/2017 9:00 PM CDT) Total volume, urine No volume mL [facility] DEPARTMENT OF PATHOLOGY AND GENOMIC MEDICINE Urine creatinine concentration 353 mg/dL [facility] DEPARTMENT OF PATHOLOGY AND GENOMIC MEDICINE Urine microalbumin concentration >440.0 mg/dL [facility] DEPARTMENT OF PATHOLOGY AND GENOMIC MEDICINE Urine microalbumin/creatinine 1,246 (H) 0 - 30 mg/g [facility] DEPARTMENT OF PATHOLOGY ratio AND GENOMIC MEDICINE Specimen Urine Performing Organization Address City/[facility] Centercode Phone Number [facility] DEPARTMENT OF PATHOLOGY AND [address] [place] [address] GENOMIC MEDICINE Sodium level, urine, random (11/22/2017 9:00 PM CDT) Sodium, urine, random <20 mEq/L [facility] DEPARTMENT OF PATHOLOGY AND GENOMIC MEDICINE Specimen Urine Performing Organization Address City/[facility] Centercode Phone Number [facility] DEPARTMENT OF PATHOLOGY AND [address] [place] [address] GENOMIC MEDICINE Protein, urine, random (11/22/2017 9:00 PM CDT) Protein, urine random 2,244 mg/dL [facility] DEPARTMENT OF PATHOLOGY AND GENOMIC MEDICINE Specimen Urine Performing Organization Address City/[facility] Centercode Phone Number [facility] DEPARTMENT OF PATHOLOGY AND [address] [place] [address] GENOMIC MEDICINE Creatinine level, urine, random (11/22/2017 9:00 PM CDT) Creatinine, urine, random 353 mg/dL [facility] DEPARTMENT OF PATHOLOGY AND GENOMIC MEDICINE Specimen Urine Performing Organization Address City/[facility] Centercode Phone Number [facility] DEPARTMENT OF PATHOLOGY AND [address] [place] [phone] GENOMIC MEDICINE Gastrointestinal panel (11/22/2017 8:56 PM CDT) Gastrointestinal panel Negative for all pathogens tested: [facility] DEPARTMENT OF Negative for Salmonella PATHOLOGY AND GENOMIC Negative for Campylobacter MEDICINE Negative for Diarrheagenic E coli/Shigella Negative for Shiga-like toxin-producing E coli Negative for Plesiomonas shigelloides Negative for Yersinia enterocolitica Negative for Vibrio species Negative for Clostridium difficile (Toxin A/B) Negative for Cryptosporidium Negative for Giardia lamblia Negative for Cyclospora cayeteanensis Negative for Entamoeba histolytica Negative for Adenovirus F 40/41 Negative for Astrovirus Negative for Norovirus GI/GII Negative for Rotavirus A Negative for Sapovirus Negative for Clostridium difficile toxin Negative for E coli 0157 This real-time PCR assay detects the presence of nucleic acids (RNA or DNA) for the gastrointestinal pathogens listed. A result of "Not-detected" does not exclude the possibility of the presence of one or more pathogens at concentrations less than the detectable limits of the assay. Comment: Specimen Information Specimen Source: Stool Specimen Site: Nonpreserved Specimen Stool - Nonpreserved Performing Organization Address [facility] Centercode Phone Number [facility] DEPARTMENT OF PATHOLOGY AND [address] [place] [address] West Nile virus by PCR, plasma (11/22/2017 11:05 AM CDT) West Nile virus PCR, Not-Detected Not-Detected [facility] DEPARTMENT OF plasma PATHOLOGY AND [facility] MEDICINE West Nile virus PCR, See link below for [facility] DEPARTMENT OF plasma PDF Lab PATHOLOGY AND GENOMIC ReportComment: Case MEDICINE Number: [id number] Specimen Blood Performing Organization Address [facility] Centercoms Phone Number [facility] DEPARTMENT OF PATHOLOGY AND [address] [place] [address] Cryo, globulin and fibrinogen (11/22/2017 8:05 AM CDT) Cryoglobulin Negative Negative [facility] DEPARTMENT OF PATHOLOGY AND GENOMIC MEDICINE Cryocrit globulin 0.0 Negative % [facility] DEPARTMENT OF PATHOLOGY AND GENOMIC MEDICINE Cryofibrinogen Negative Negative [facility] DEPARTMENT OF PATHOLOGY AND GENOMIC MEDICINE Cryocrit fibrinogen 0.0 Negative % [facility] DEPARTMENT OF PATHOLOGY AND GENOMIC MEDICINE Specimen Blood Performing Organization Address City/[facility] Centercode Phone Number [facility] DEPARTMENT OF PATHOLOGY AND [address] [place] [address] [facility] Blood culture, fungus (11/22/2017 8:05 AM CDT) Blood culture isolate, No fungus isolated in 8 days. [facility] DEPARTMENT OF fungus Comment: PATHOLOGY AND GENOMIC Specimen Information MEDICINE Specimen Source: Blood Specimen Site: Unspecified Specimen Blood Performing Organization Address City/[facility] Centercode Phone Number [facility] DEPARTMENT OF PATHOLOGY AND [address] [place] [address] [facility] HIV Ag/Ab combination (11/22/2017 4:40 AM CDT) HIV Ag/Ab combination Non-reactive Non-reactive [facility] DEPARTMENT OF PATHOLOGY AND GENOMIC MEDICINE Specimen Serum Performing Organization Address City/State/Zipcode Phone Number [facility] DEPARTMENT OF PATHOLOGY AND [address] [place] [phone] [place] [address] Cytomegalovirus by PCR (11/22/2017 4:40 AM CDT) Cytomegalovirus by PCR Not-Detected Not-Detected IU/mL [facility] DEPARTMENT OF PATHOLOGY AND GENOMIC MEDICINE Cytomegalovirus by PCR See link below for [facility] DEPARTMENT OF PDF Lab PATHOLOGY AND GENOMIC ReportComment: Case MEDICINE Number: [id number] Performing Organization Address City/State/Zipcode Phone Number [facility] DEPARTMENT OF PATHOLOGY AND [address] [place] [address] Radu Osullivan Virus (EBV) by PCR (11/22/2017 4:40 AM CDT) Radu Osullivan virus, PCR Not-Detected Not-Detected [facility] DEPARTMENT OF copies/mL PATHOLOGY AND GENOMIC MEDICINE Radu Osullivan virus, PCR See link below for [facility] DEPARTMENT OF [facility] Lab PATHOLOGY AND GENOMIC ReportComment: Case MEDICINE Number: [id number] Performing Organization Address City/State/[facility] Centercode Phone Number [facility] DEPARTMENT OF PATHOLOGY AND [address] [place], [place] [phone] [facility] Hepatitis acute panel (11/22/2017 4:40 AM CDT) Hepatitis A IgM Non-reactive Non-reactive [facility] DEPARTMENT OF PATHOLOGY AND GENOMIC MEDICINE Hepatitis B core IgM Non-reactive Non-reactive [facility] DEPARTMENT OF PATHOLOGY AND GENOMIC MEDICINE Hepatitis B surface Ag Non-reactive Non-reactive [facility] DEPARTMENT OF PATHOLOGY AND GENOMIC MEDICINE Hepatitis C Ab Non-reactive Non-reactive [facility] DEPARTMENT OF PATHOLOGY AND GENOMIC MEDICINE Specimen Serum Performing Organization Address City/State/Zipcode Phone Number [facility] DEPARTMENT OF PATHOLOGY AND [address] [place] [address] [facility] Thyroid stimulating hormone (11/22/2017 4:40 AM CDT) TSH 1.53 0.27 - 4.20 uIU/mL [facility] DEPARTMENT OF PATHOLOGY AND GENOMIC MEDICINE Specimen Plasma specimen Performing Organization Address City/State/Zipcode Phone Number [facility] DEPARTMENT OF PATHOLOGY AND [address] [place] [address] Hemoglobin A1c (11/22/2017 4:40 AM CDT) Hemoglobin A1C 5.9 (H) 4.0 - 5.6 % [facility] DEPARTMENT OF PATHOLOGY Comment: AND [facility] HbA1c cutoffs for diagnosing diabetes: 4.0% - 5.6%=normal 5.7% - 6.4%=increased risk for diabetes (prediabetes) >=6.5%=diabetes Goals for glycemic control (ADA 2016) < 7.0%Target for non adults with diabetes. More or less stringent targets may be appropriate for individual patients. <7.5% Target for Children and adolescents with type 1 diabetes. Specimen Blood Performing Organization Address City/State/Zipcode Phone Number [facility] DEPARTMENT OF PATHOLOGY AND [address] [place] [address] [facility] US Renal (11/21/2017 4:45 PM CDT) Narrative Performed At EXAMINATION:US RENAL RADIANT CLINICAL HISTORY:Elevated abnormal renal function tests COMPARISON:None. FINDINGS: The kidneys are generally increased in echogenicity suggesting a degree of chronic renal disease.. There is no evidence of solid renal mass, stone or hydronephrosis. The right kidney measures 12.3 x 5.0 x 5.1 cm.There is a 1.2 cm cyst.. The left kidney lexyvzmw33.1 x 6.3 x 5.3 cm.There are 2 cysts measuring 1.2 cm and 1.1 cm.. The urinary bladder is empty as the patient voided shortly before the exam.. IMPRESSION: Signs of chronic renal disease.Bilateral renal cysts.. [facility]-[id number] Procedure Note Interface, Radiology Results Incoming - 11/21/2017 5:52 PM CDT EXAMINATION: US RENAL CLINICAL HISTORY: Elevated abnormal renal function tests COMPARISON: None. FINDINGS: The kidneys are generally increased in echogenicity suggesting a degree of chronic renal disease.. There is no evidence of solid renal mass, stone or hydronephrosis. The right kidney measures 12.3 x 5.0 x 5.1 cm. There is a 1.2 cm cyst.. The left kidney measures 12.1 x 6.3 x 5.3 cm. There are 2 cysts measuring 1.2 cm and 1.1 cm. . The urinary bladder is empty as the patient voided shortly before the exam.. IMPRESSION: Signs of chronic renal disease. Bilateral renal cysts.. [facility]-[id number] Performing Organization Address City/[facility]/Zipcode Phone Number [facility] [address] [place] [address] Respiratory pathogen panel (11/21/2017 3:45 PM CDT) Respiratory pathogen Negative for all pathogens tested: [facility] DEPARTMENT OF panel Negative for Adenovirus PATHOLOGY AND GENOMIC Negative for Coronavirus HKU1 MEDICINE Negative for Coronavirus NL63 Negative for Coronavirus 229E Negative for Coronavirus OC43 Negative for Human Metapneumovirus Negative for Rhinovirus/Enterovirus Negative for Influenza A Negative for Influenza A/H1 Negative for Influenza A/H3 Negative for Influenza A/H1-2009 Negative for Influenza B Negative for Parainfluenza Virus 1 Negative for Parainfluenza Virus 2 Negative for Parainfluenza Virus 3 Negative for Parainfluenza Virus 4 Negative for Respiratory Syncytial Virus Negative for Bordetella pertussis Negative for Chlamydophila pneumoniae Negative for Mycoplasma pneumoniae This real-time PCR assay detects the presence of nucleic acids (RNA or DNA) for the respiratory pathogens listed. A result of "Not-detected" does not exclude the possibility of the presence of one or more pathogens at concentrations less than the detectable limits of the assay. Comment: Specimen Information Specimen Source: Nares Specimen Site: Right Specimen Nares - Right Performing Organization Address [facility] Centercode Phone Number [facility] DEPARTMENT OF PATHOLOGY AND [address] [place] [address] Total iron binding capacity (11/21/2017 5:50 AM CDT) Iron level 31 (L) 59 - 158 ug/dL [facility] DEPARTMENT OF PATHOLOGY AND GENOMIC MEDICINE Iron binding capacity 216 200 - 400 ug/dL [facility] DEPARTMENT OF PATHOLOGY AND GENOMIC MEDICINE % Saturation 14.4 (L) 20.0 - 40.0 % [facility] DEPARTMENT OF PATHOLOGY AND GENOMIC MEDICINE Specimen Plasma specimen Narrative Performed At SPOKE WITH NURSE QUESADA [facility] DEPARTMENT OF PATHOLOGY AND GENOMIC 11/21/201706:55 MEDICINE Performing Organization Address [facility] Centercode Phone Number [facility] DEPARTMENT OF PATHOLOGY AND [address] [place] [address] Glomerular basement membrane Ab IgG (IFA) (11/21/2017 5:50 AM CDT) Glomerular basement Negative Negative [facility] membrane Ab Comment: INTERPRETIVE INFORMATION:GBM Ab, IgG (IFA) When present, IgG antibody to glomerular basement membrane (GBM) antigen detected by either indirect fluorescent antibody (IFA) or multiplex bead assay helps support a diagnosis of Goodpasture syndrome.However, the combined result of both assays performed during initial evaluation improves the diagnostic sensitivity for disease. A positive result in one or both assays should be confirmed by renal biopsy. Test developed and characteristics determined by [employer]. See Compliance Statement D: [employer]/CS Performed by [facility], [address] [place] [id number] [email or web address], Orville Dasilva MD - Lab. Director Specimen Serum Narrative Performed At SPOKE WITH NURSE QUESADA 11/21/201706:55 [facility] added MG/PHOS per Dr Spencer 11/21/2017 07:36 by MARYJANE Spring results called to and read back Milagros CHRISTENSEN(name/location) at11/21/201707:35 (date/time) by LS2. Performing Organization Address City/[facility]/Zipcode Phone Number [facility] [address] [place] [address] Immunofixation, serum (11/21/2017 5:50 AM CDT) Immunofixation, serum SEE COMMENTComment: See [facility] DEPARTMENT OF electrophoresis report below. PATHOLOGY AND [facility]INE Specimen Serum Performing Organization Address City/[facility]/Zipcode Phone Number [facility] DEPARTMENT OF PATHOLOGY AND [address] [place] [address] [facility] Antistreptolysin O (11/21/2017 5:50 AM CDT) Antistreptolysin O 49 0 - 200 IU/mL [facility] DEPARTMENT OF PATHOLOGY AND GENOMIC MEDICINE Specimen Blood Narrative Performed At SPOKE WITH NURSE QUESADA [facility] DEPARTMENT OF PATHOLOGY AND GENOMIC 11/21/201706:55 MEDICINE added MG/PHOS per Dr Spencer 11/21/2017 07:36 by MARYJANE Spring results called to and read back Milagros CHRISTENSEN(name/location) at11/21/201707:35 (date/time) by LS2. Performing Organization Address City/State/Zipcode Phone Number [facility] DEPARTMENT OF PATHOLOGY AND [address] [place] [address] GENOMIC MEDICINE Blood culture, aerobic & anaerobic (11/21/2017 5:50 AM CDT) Blood culture isolate No growth after 5 days of incubation. [facility] DEPARTMENT OF Comment: PATHOLOGY AND GENOMIC Specimen Information MEDICINE Specimen Source: Blood Specimen Site: Wrist, left Specimen Blood - Wrist, left Performing Organization Address City/[facility] Centercode Phone Number [facility] DEPARTMENT OF PATHOLOGY AND [address] [place] [address] MEDICINE Reticulocyte count (11/21/2017 5:50 AM CDT) Retic %, auto 2.8 (H) 0.5 - 2.1 % [facility] DEPARTMENT OF PATHOLOGY AND GENOMIC MEDICINE Retic absolute, auto 0.1008 0.0220 - 0.1260 m/uL [facility] DEPARTMENT OF PATHOLOGY AND GENOMIC MEDICINE Specimen Blood Narrative Performed At SPOKE WITH NURSE SANGITA [facility] DEPARTMENT OF PATHOLOGY AND GENOMIC 11/21/201706:55 MEDICINE added MG/PHOS per Dr Spencer 11/21/2017 07:36 by K K results called to and read back byRONY MONTILLA/VINNY(name/location) at11/21/201707:35 (date/time) by LS2. Performing Organization Address City/[facility] Centercode Phone Number [facility] DEPARTMENT OF PATHOLOGY AND [address] [place] [address] MEDICINE Ferritin level (11/21/2017 5:50 AM CDT) Ferritin level 91 30 - 400 ng/mL [facility] DEPARTMENT OF PATHOLOGY AND GENOMIC MEDICINE Specimen Plasma specimen Narrative Performed At SPOKE WITH NURSE QUESADA [facility] DEPARTMENT OF PATHOLOGY AND GENOMIC 11/21/201706:55 MEDICINE Performing Organization Address City/[facility]/Zipcode Phone Number [facility] DEPARTMENT OF PATHOLOGY AND [address] [place] [address] Urine eosinophils (11/20/2017 7:00 AM CDT) Eosinophils, urine PRESENT (A) [facility] DEPARTMENT OF PATHOLOGY AND GENOMIC MEDICINE Specimen Urine Performing Organization Address City/[facility]/Zipcode Phone Number [facility] DEPARTMENT OF PATHOLOGY AND [address] [place] [address] Occult blood, stool (11/20/2017 7:00 AM CDT) Occult blood, stool Positive for Occult blood (A) [facility] DEPARTMENT OF Comment: PATHOLOGY AND GENOMIC Specimen Information MEDICINE Specimen Source: Stool Specimen Site: Nonpreserved Specimen Stool - Nonpreserved Performing Organization Address City/[facility]/Zipcode Phone Number [facility] DEPARTMENT OF PATHOLOGY AND [address] [place] [address] Anti-neutrophilic cytoplasmic Abs panel (11/20/2017 4:30 AM CDT) ANCA screen Negative Negative [facility] DEPARTMENT OF PATHOLOGY AND GENOMIC MEDICINE Specimen Blood Performing Organization Address City/[facility]/Zipcode Phone Number [facility] DEPARTMENT OF PATHOLOGY AND [address] [place] [address] Urinalysis, automated with microscopy (11/20/2017 4:30 AM CDT) Color, UA Renita [facility] DEPARTMENT OF PATHOLOGY AND GENOMIC MEDICINE Appearance, UA Cloudy [facility] DEPARTMENT OF PATHOLOGY AND GENOMIC MEDICINE Specific gravity, UA 1.039 (H) 1.001 - 1.035 [facility] DEPARTMENT OF PATHOLOGY AND GENOMIC MEDICINE pH, UA 5.0 5.0 - 8.5 [facility] DEPARTMENT OF PATHOLOGY AND GENOMIC MEDICINE Protein, UA 3+ (A) Negative [facility] DEPARTMENT OF PATHOLOGY AND GENOMIC MEDICINE Glucose, UA 1+ (A) Negative [facility] DEPARTMENT OF PATHOLOGY AND GENOMIC MEDICINE Ketones, UA Trace (A) Negative [facility] DEPARTMENT OF PATHOLOGY AND GENOMIC MEDICINE Bilirubin, UA Positive@UBIL (A) Negative [facility] DEPARTMENT OF PATHOLOGY AND GENOMIC MEDICINE Blood, UA Large (A) Negative [facility] DEPARTMENT OF PATHOLOGY AND GENOMIC MEDICINE Nitrite, UA Negative Negative [facility] DEPARTMENT OF PATHOLOGY AND GENOMIC MEDICINE Urobilinogen, UA <2.0 <2.0 [facility] DEPARTMENT OF PATHOLOGY AND GENOMIC MEDICINE Leukocyte esterase, UA Small (A) Negative [facility] DEPARTMENT OF PATHOLOGY AND GENOMIC MEDICINE Epithelial cells, UA 10 /HPF [facility] DEPARTMENT OF PATHOLOGY AND GENOMIC MEDICINE Round epithelial cells, UA 3 (H) 0 - 1 /HPF [facility] DEPARTMENT OF PATHOLOGY AND GENOMIC MEDICINE WBC, UA >180 (H) 0 - 1 /HPF [facility] DEPARTMENT OF PATHOLOGY AND GENOMIC MEDICINE RBC, UA >180 (H) 0 - 5 /HPF [facility] DEPARTMENT OF PATHOLOGY AND GENOMIC MEDICINE Bacteria, UA Moderate (A) None seen [facility] DEPARTMENT OF PATHOLOGY AND GENOMIC MEDICINE Hyaline casts, UA 16 /LPF [facility] DEPARTMENT OF PATHOLOGY AND GENOMIC MEDICINE WBC clumps, UA Few (A) [facility] DEPARTMENT OF PATHOLOGY AND GENOMIC MEDICINE Yeast, UA None seen [facility] DEPARTMENT OF PATHOLOGY AND GENOMIC MEDICINE Yeast with pseudohyphae, UA None seen [facility] DEPARTMENT OF PATHOLOGY AND GENOMIC MEDICINE Specimen Urine Performing Organization Address City/[facility] Centercode Phone Number [facility] DEPARTMENT OF PATHOLOGY AND [address] [place] [address] GENOMIC MEDICINE Rheumatoid factor (11/20/2017 4:30 AM CDT) Rheumatoid factor 17 (H) 0 - 13 IU/mL [facility] DEPARTMENT OF PATHOLOGY AND GENOMIC MEDICINE Specimen Plasma specimen Performing Organization Address City/[facility] Centercode Phone Number [facility] DEPARTMENT OF PATHOLOGY AND [address] [place] [address] GENOMIC MEDICINE C3 complement component (11/20/2017 4:30 AM CDT) C3 complement <39 (L) 90 - 180 mg/dL [facility] DEPARTMENT OF PATHOLOGY AND GENOMIC MEDICINE Specimen Plasma specimen Performing Organization Address [facility] Centercode Phone Number [facility] DEPARTMENT OF PATHOLOGY AND [address] [place] [address] GENOMIC MEDICINE C4 complement component (11/20/2017 4:30 AM CDT) C4 complement 4 (L) 10 - 40 mg/dL [facility] DEPARTMENT OF PATHOLOGY AND GENOMIC MEDICINE Specimen Plasma specimen Performing Organization Address [facility] Phone Number [facility] DEPARTMENT OF PATHOLOGY AND [address] [place] [address] GENOMIC MEDICINE Lipid panel (11/20/2017 4:30 AM CDT) Cholesterol 147 <200 mg/dL [facility] DEPARTMENT OF PATHOLOGY AND GENOMIC MEDICINE Triglycerides 184 (H) <150 mg/dL [facility] DEPARTMENT OF PATHOLOGY AND GENOMIC MEDICINE HDL cholesterol 54 >40 mg/dL [facility] DEPARTMENT OF PATHOLOGY AND GENOMIC MEDICINE LDL cholesterol 71Comment: Result <100 mg/dL [facility] DEPARTMENT OF obtained by direct LDL PATHOLOGY AND GENOMIC measurement MEDICINE Lipid panel interpretation SeeBelow [facility] DEPARTMENT OF Comment: PATHOLOGY AND GENOMIC Total Cholesterol (mg/dL) MEDICINE <200 Desirable [phone]-xxeg >=240High Triglycerides (mg/dL) <150 Normal [id number] 200-499High >=500Very high HDL Cholesterol (mg/dL) <40Low (male) <40Low (female) LDL Cholesterol (mg/dL) <100 Optimal 100-129Near or above optimal [phone]-fpef 160-189High >=190Very high Risk Catergories that modify LDL goals. Risk CatergoriesLDL goal (mg/dL) CHD and CHD risk equivalent<100 (10-year risk >20%) Multiple (2+) risk factors <130 (10-year risk=<20%) 0-1 risk factors <160 (<10-year risk) Defining levels of lipids in metabolic syndrome Triglycerides>=150 mg/dL HDL Cholesterol Men<40 mg/dL Women<40 mg/dL Non-HDL cholesterol is a second target for therapy in persons with high triglycerides (>=200 mg/dL) Specimen Plasma specimen Performing Organization Address City/State/[facility] Phone Number [facility] DEPARTMENT OF PATHOLOGY AND [address] [place], [place] [phone] [facility] ECG 12 lead (11/19/2017 10:19 PM CDT) Ventricular rate 63 [facility] Atrial rate 63 [facility] DE interval 112 [facility] QRSD interval 126 [facility] QT interval 440 [facility] QTC interval 450 [facility] P axis 1 0 [facility]USE QRS axis 1 67 [facility]USE T wave axis 39 [facility] M[facility] EKG impression Normal sinus rhythm-Right bundle branch [facility] MUSE block-Abnormal ECG-No previous ECGs available- Performing Organization Address [facility] Centercode Phone Number [facility] MUSE [address] [place] [phone] Sedimentation rate (11/19/2017 10:10 PM CDT) Sedimentation rate 46 (H) 0 - 10 mm/hr [facility] DEPARTMENT OF PATHOLOGY AND GENOMIC MEDICINE Performing Organization Address City/[facility]ode Phone Number [facility] DEPARTMENT OF PATHOLOGY AND [address] [place] [phone] [facility] C-reactive protein (11/19/2017 10:10 PM CDT) CRP 2.26 (H) 0.00 - 0.50 mg/dL [facility] DEPARTMENT OF PATHOLOGY AND GENOMIC MEDICINE Specimen Plasma specimen Performing Organization Address [facility] Centercode Phone Number [facility] DEPARTMENT OF PATHOLOGY AND [address] [place] [phone] GENOMIC MEDICINE after 07/24/2017 Insurance Payer Benefit Plan / Group Subscriber ID Type Phone Address [employer] [facility] xxxxxxxxx HMO Advance Directives Patient has advance care planning documents on file. For more information, please contact:[id number] [place] [address]
[2018-07-25 13:24] LABS: Hematocrit 28.7 % (39.6-49.0)
[2018-07-25 14:55] VITALS: O2SAT 98; BMI 31.1
[2018-07-25 15:01] VITALS: BP 145/77; TEMP 98
== END ==
LOC: DS 08:00
PROVIDERS: ATTEND Internal Medicine
DX: D50.9 Iron deficiency anemia, unspecified (principal)
CPT/HCPCS: 36415; 36430; 85014; 85018; 86850; 86900; 86901; P9016

== ENCOUNTER 2018-10-25 10:16 | Inpatient (IN) | payer OTHER ==
[~2018-10-25 10:16] MED LIST changes: +FUROSEMIDE 40 MG/4 ML VIAL IV SCH; -NA CHLORIDE 0.9% 250 ML ONE
--- OUTSIDE RECORDS SUMMARY | 2018-10-25 10:47 | XMS REPORT | Clinical Summary ---
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) after 10/24/2017 Family History Medical History Relation Name Comments [...] Taken Blood Pressure 132/69 07/18/2018 12:31 PM DEPARTMENT MANAGER Pulse 85 07/18/2018 12:31 PM DEPARTMENT MANAGER Temperature 36.3 C (97.4 F) 07/18/2018 12:31 PM DEPARTMENT MANAGER Respiratory Rate 20 07/18/2018 12:31 PM DEPARTMENT MANAGER Oxygen Saturation 97% 07/18/2018 12:31 PM DEPARTMENT MANAGER Inhaled Oxygen Concentration - - Weight 76.9 kg (169 lb 7 oz) 06/05/2018 11:14 AM DEPARTMENT MANAGER Height 157.5 cm (5' 2") 07/17/2018 10:15 AM DEPARTMENT MANAGER Body Mass Index 30.99 06/05/2018 11:14 AM DEPARTMENT MANAGER Plan of Treatment Health Maintenance Due Date Last Done Comments SHINGLES VACCINES (#1) 1994 65+ PNEUMOCOCCAL VACCINE (1 of 2 - PCV13) 2009 PNEUMOCOCCAL POLYSACCHARIDE VACCINE AGE 65 AND OVER 2009 INFLUENZA VACCINE 02/08/2019 COLON CANCER SCREENING 11/21/2027 11/20/2017 Procedures Procedure Name Priority Date/Time Associated Comments Diagnosis TRANSFUSE RED BLOOD Routine 07/18/2018 10:22 CELLS AM DEPARTMENT MANAGER PREPARE RBC Timed 07/18/2018 8:45 Results for this AM DEPARTMENT MANAGER procedure are in the results section. TYPE AND SCREEN Timed 07/18/2018 8:45 Results for this AM DEPARTMENT MANAGER procedure are in the results section. SMEAR REVIEW Routine 07/18/2018 5:15 Results for this AM DEPARTMENT MANAGER procedure are in the results section. HC COMPLETE BLD COUNT Routine 07/18/2018 5:15 Results for this W/AUTO DIFF AM DEPARTMENT MANAGER procedure are in the results section. ESTIMATED GFR Routine 07/18/2018 4:35 Results for this AM DEPARTMENT MANAGER procedure are in the results section. BASIC METABOLIC PANEL Routine 07/18/2018 4:35 Results for this AM DEPARTMENT MANAGER procedure are in the results section. ESTIMATED GFR Routine 07/17/2018 11:10 Results for this AM DEPARTMENT MANAGER procedure are in the results section. COMPREHENSIVE METABOLIC Routine 07/17/2018 11:10 Results for this PANEL AM DEPARTMENT MANAGER procedure are in the results section. HC COMPLETE BLD COUNT Routine 07/17/2018 11:10 Results for this W/AUTO DIFF AM DEPARTMENT MANAGER procedure are in the results section. HC COMPLETE BLD COUNT Routine 06/06/2018 4:15 Results for this W/AUTO DIFF AM DEPARTMENT MANAGER procedure are in the results section. ESTIMATED GFR Routine 06/06/2018 4:00 Results for this AM DEPARTMENT MANAGER procedure are in the results section. BASIC METABOLIC PANEL Routine 06/06/2018 4:00 Results for this AM DEPARTMENT MANAGER procedure are in the results section. URINALYSIS SCREEN AND Routine 06/05/2018 3:30 Results for this MICROSCOPY, WITH REFLEX PM DEPARTMENT MANAGER procedure are in TO CULTURE the results section. GRAM STAIN Routine 06/05/2018 3:30 Results for this PM DEPARTMENT MANAGER procedure are in the results section. URINE CULTURE Routine 06/05/2018 3:30 Results for this PM DEPARTMENT MANAGER procedure are in the results section. ESTIMATED GFR STAT 06/05/2018 1:55 Results for this PM DEPARTMENT MANAGER procedure are in the results section. HC COMPLETE BLD COUNT STAT 06/05/2018 1:55 Results for this W/AUTO DIFF PM DEPARTMENT MANAGER procedure are in the results section. BASIC METABOLIC PANEL STAT 06/05/2018 1:55 Results for this PM DEPARTMENT MANAGER procedure are in the results section. HEMODIALYSIS [...] procedure are in the results section. after 10/24/2017 Results Prepare RBC, 1 Units (07/18/2018 8:45 AM DEPARTMENT MANAGER)Only the most recent of2 resultswithin the time period is included. Product name Apheresis Red Cell AS3 #1 LR [facility] Unit number [id number] [facility] Product code [id number] [facility] Dispense status Transfused [facility] Blood expiration date [facility] Blood type [facility] 5100 [facility] Blood type O POSITIVE [facility] Performing Organization Address City/[facility] Phone Number [facility] DEPARTMENT OF PATHOLOGY AND [address] [place] [phone] Type and screen (07/18/2018 8:45 AM DEPARTMENT MANAGER)Only the most recent of2 resultswithin the time period is included. ABO grouping O [facility] Rh type POS [facility] Antibody screen (gel) NEG [facility] Specimen Blood Performing Organization Address City/[facility] Phone Number [facility] DEPARTMENT OF PATHOLOGY AND [address] [place] [phone] [place] [phone] Smear review (07/18/2018 5:15 AM DEPARTMENT MANAGER)Only the most recent of5 resultswithin the time period is included. Platelet slide review Mindy adequate [facility] Anisocytosis Moderate [facility] Polychromasia Moderate [facility] Basophilic stippling Occasional [facility] Ovalocytes Moderate [facility] Performing Organization Address City/[facility] Phone Number [facility] DEPARTMENT OF PATHOLOGY AND [address] [place] [phone] GENOMIC MEDICINE [address] [address] CBC with platelet and differential (07/18/2018 5:15 AM DEPARTMENT MANAGER)Only the most recent of18 resultswithin the time period is included. WBC 4.99 4.50 - 11.00 k/uL [facility] RBC 2.19 (L) 4.40 - 6.00 m/uL [facility] HGB 6.8 (LL) 14.0 - 18.0 g/dL [facility] Comment: HOSPITAL HGB results called to and read back by BERTHA [email or web address] at07/18/2018 06:04 by TIMMY. HCT 22.0 (L) 41.0 - 51.0 % [facility] MCV 100.5 (H) 82.0 - 100.0 fL [facility] MCH 31.1 27.0 - 34.0 pg [facility] MCHC 30.9 (L) 31.0 - 37.0 g/dL [facility] RDW - SD 49.1 37.0 - 55.0 fL [facility] MPV 10.5 8.8 - 13.2 fL [facility] Platelet count 199 150 - 400 k/uL [facility] Nucleated RBC 0.00 /100 WBC [facility] Neutrophils 92.2 (H) 39.0 - 69.0 % [facility] Lymphocytes 6.0 (L) 25.0 - 45.0 % [facility] Monocytes 0.8 0.0 - 10.0 % [facility] Eosinophils 0.2 0.0 - 5.0 % [facility] Basophils 0.2 0.0 - 1.0 % [facility] Immature granulocytes 0.6Comment: "Immature 0.0 - 1.0 % [facility] granulocytes" [facility] (promyelocytes, myelocytes, metamyelocytes) Specimen Blood Performing Organization Address City/[facility]/Zipcode Phone Number [facility] DEPARTMENT OF PATHOLOGY AND [address] [place] [phone] [place] [phone] Estimated GFR (07/18/2018 4:35 AM DEPARTMENT MANAGER)Only the most recent of8 resultswithin the time period is included. Estimated GFR 32 (A) mL/min/1.73 m2 [facility] Comment: HOSPITAL CatergoryUnitsInterpretation G1 >=90 Normal or high G2 60-89Mildly decreased [id number] to moderately decreased [id number] to severely decreased G4 15-29Severely decreased G5 <15Kidney failure The eGFR was calculated using the Chronic Kidney Disease Epidemiology Collaboration (CKD-EPI) equation. Interpretation is based on recommendations of the National Kidney Foundation-Kidney Disease Outcomes Quality Initiative (NKF-KDOQI) published in 2014. Specimen Plasma specimen Performing Organization Address City/[facility] Cent[facility] Phone Number [facility] DEPARTMENT OF PATHOLOGY AND [address] [place] [address] Basic metabolic panel (07/18/2018 4:35 AM DEPARTMENT MANAGER)Only the most recent of13 resultswithin the time period is included. Sodium 141 135 - 148 mEq/L [facility] Potassium 4.7 3.5 - 5.0 mEq/L [facility] Chloride 103 98 - 112 mEq/L [facility] CO2 26 24 - 31 mEq/L [facility] Anion gap 12@ANIO 7 - 15 mEq/L [facility] BUN 45 (H) 8 - 23 mg/dL [facility] Creatinine 1.98 (H) 0.70 - 1.20 mg/dL [facility] Glucose 175 (H) 65 - 99 mg/dL [facility] Calcium 8.7 (L) 8.8 - 10.2 mg/dL [facility] Specimen Plasma specimen Performing Organization Address City/[facility]/Zipcode Phone Number [facility] DEPARTMENT OF PATHOLOGY AND [address] [place] [address] Comprehensive metabolic panel (07/17/2018 11:10 AM DEPARTMENT MANAGER)Only the most recent of5 resultswithin the time period is included. Sodium 144 135 - 148 mEq/L [facility] Potassium 3.7 3.5 - 5.0 mEq/L [facility] Chloride 104 98 - 112 mEq/L [facility] CO2 28 24 - 31 mEq/L [facility] Anion gap 12@ANIO 7 - 15 mEq/L [facility] BUN 42 (H) 8 - 23 mg/dL [facility] Creatinine 1.98 (H) 0.70 - 1.20 mg/dL [facility] Glucose 118 (H) 65 - 99 mg/dL [facility] Calcium 8.8 8.8 - 10.2 mg/dL [facility] Protein 6.3 6.3 - 8.3 g/dL [facility] Comment: HOSPITAL [place] 4.6-7.0 g/dL 1 week 4.4-7.6 g/dL 7 months-1year5.1-7.3 g/dL 1-2 years5.6-7.5 g/dL >3 years6.0-8.0 g/dL 18-150 6.3-8.3 g/dL Albumin 2.6 (L) 3.5 - 5.0 g/dL [facility] A/G ratio 0.7 0.7 - 3.8 [facility] Alkaline phosphatase 76 40 - 129 U/L [facility] AST 18 10 - 50 U/L [facility] ALT 12 5 - 50 U/L [facility] Total bilirubin <0.2 0.0 - 1.2 mg/dL [facility] Specimen Plasma specimen Performing Organization Address City/State/Zipcode Phone Number [facility] DEPARTMENT OF PATHOLOGY AND [address] [place] [address] GENOM[address] MEDIC[address] [address] Urinalysis screen and microscopy, with reflex to culture (06/05/2018 3:30 PM DEPARTMENT MANAGER)Only the most recent of2 resultswithin the time period is included. Specimen site Clean catch [facility] Color, UA Straw [facility] Appearance, UA Clear [facility] Specific gravity, UA 1.009 1.001 - 1.035 [facility] pH, UA 6.0 5.0 - 8.5 [facility] Protein, UA 2+ (A) Negative [facility] Glucose, UA Negative Negative [facility] Ketones, UA Negative Negative [facility] Bilirubin, UA Negative Negative [facility] Blood, UA Negative Negative [facility] Nitrite, UA Negative Negative [facility] Urobilinogen, UA <2.0 <2.0 [facility] Leukocyte esterase, UA Trace (A) Negative [facility] WBC, UA 17 (H) 0 - 1 /HPF [facility] RBC, UA 2 0 - 5 /HPF [facility] Bacteria, UA None seen None seen [facility] Yeast, UA None seen [facility] Yeast with pseudohyphae, UA None seen [facility] Hyaline casts, UA 1 /LPF [facility] Specimen Urine Performing Organization Address City/[facility] Phone Number [facility] DEPARTMENT OF PATHOLOGY AND [address] [place] [phone] Gram stain (06/05/2018 3:30 PM DEPARTMENT MANAGER)Only the most recent of2 resultswithin the time period is included. Gram stain result Rare WBC's [facility] No organisms seen Comment: Specimen Information Specimen Source: Urine Specimen Site: Clean catch Specimen Urine Performing Organization Address City/[facility] Phone Number [facility] DEPARTMENT OF PATHOLOGY AND [address] [place] [phone] Urine culture (06/05/2018 3:30 PM DEPARTMENT MANAGER)Only the most recent of2 resultswithin the time period is included. Urine culture isolate susceptibility testing.Culture is being reincubated for [facility] growth. HOSPITAL Mixed krystal <=10-3 col/cc (A) Comment: Specimen Information Specimen Source: Urine Specimen Site: Clean catch Urine culture isolate Enterococcus faecalis [facility] 10-5 cfu/ml HOSPITAL The performance characteristics of this assay on this isolate were validated by the Microbiology Laboratory at [facility].This source has not been approved by the [...] EDD 1 mcg/mL: Susceptible Performing Organization Address [facility] Phone Number [facility] DEPARTMENT OF PATHOLOGY AND [address] [place] [address] Hepatitis B surface antigen (05/03/2018 8:13 AM CDT)Only the most recent of4 resultswithin the time period is included. Hepatitis B surface Ag Non-reactive Non-reactive [facility] DEPARTMENT OF PATHOLOGY AND [facility] Specimen Blood Performing Organization Address [facility] Phone Number [facility] DEPARTMENT OF PATHOLOGY AND [address] [place] [address] Phosphorus level (05/03/2018 4:00 AM CDT)Only the most recent of6 resultswithin the time period is included. Phosphorus 4.2 2.4 - 4.5 mg/dL [facility] DEPARTMENT OF PATHOLOGY AND [facility] Specimen Plasma specimen Performing Organization Address [facility] Phone Number [facility] DEPARTMENT OF PATHOLOGY AND [address] [place] [address] Magnesium level (05/03/2018 4:00 AM CDT)Only the most recent of6 resultswithin the time period is included. Magnesium 1.8 1.6 - 2.4 mg/dL [facility] DEPARTMENT OF PATHOLOGY AND GENOMIC MEDICINE Specimen Plasma specimen Performing Organization Address [facility] Phone Number [facility] DEPARTMENT OF PATHOLOGY AND [address] [place] [address] POC glucose (01/11/2018 12:19 PM CDT)Only the most recent of7 resultswithin the time period is included. POC glucose 138 (H) 65 - 99 mg/dL [facility] DEPARTMENT OF PATHOLOGY AND Comment: [facility] Notified RN Meter ID: [id number] [place] Supervisor: Janet Loco Performing Organization Address City/State/Zipcode Phone Number [facility] DEPARTMENT OF PATHOLOGY AND [address] [place] [address] [facility] MEDICINE Transfuse RBC (01/11/2018 10:03 AM CDT)Only the most recent of2 resultswithin the time period is included.Estimated GFR (01/11/2018 5:11 AM CDT)Only the most recent of10 resultswithin the time period is included. GFR Non Af Amer 25 (A) mL/min/1.[address] [facility] DEPARTMENT OF PATHOLOGY AND GENOMIC MEDICINE GFR Af Amer 31 (A) mL/min/1.[address] [facility] DEPARTMENT OF Comment: PATHOLOGY AND GENOMIC [...] Americans. Specimen Plasma specimen Performing Organization Address [facility] Phone Number [facility] DEPARTMENT OF PATHOLOGY AND [address] [place], [place] [phone] [facility] XR Chest 1 Vw Portable (01/10/2018 9:11 AM CDT)Only the most recent of2 resultswithin the time period is included. Narrative Performed At EXAMINATION:XR CHEST 1 VW PORTABLE [facility] CLINICAL HISTORY:RALES COMPARISON:None IMPRESSION: 1.Right jugular catheter extends into the superior vena cava. There is no pneumothorax. 2.Vascular congestion and interstitial prominence has diffusely improved since the prior study. [id number] Procedure Note Hm Interface, Radiology Results Incoming - 01/10/2018 9:17 AM CDT EXAMINATION: XR CHEST 1 VW PORTABLE CLINICAL HISTORY: RALES COMPARISON: None IMPRESSION: 1. Right jugular catheter extends into the superior vena cava. There is no pneumothorax. 2. Vascular congestion and interstitial prominence has diffusely improved since the prior study. [id number] Performing Organization Address City/[facility]/Zipcode Phone Number [facility] [address] [place] [address] B natriuretic peptide (01/10/2018 4:15 AM CDT)Only the most recent of2 resultswithin the time period is included. BNP 280 (H) 0 - 100 pg/mL [facility] DEPARTMENT OF PATHOLOGY AND GENOMIC [facility] Specimen Blood Performing Organization Address [facility] Phone Number [facility] DEPARTMENT OF PATHOLOGY AND [address] [place] [address] Partial thromboplastin time, activated (01/09/2018 8:35 PM CDT) PTT 36.0 23.0 - 36.[address] [facility] DEPARTMENT OF PATHOLOGY Comment: AND [facility] PTT therapeutic range for unfractionated heparin is 61.0-112.0 seconds which corresponds to Anti-Xa 0.3-0.7 U/ml. Specimen Blood Performing Organization Address [facility] Phone Number [facility] DEPARTMENT OF PATHOLOGY AND [address] [place] [address] Prothrombin time with INR (01/09/2018 8:35 PM CDT) Prothrombin time 14.3 12.0 - 15.[address] [facility] DEPARTMENT OF PATHOLOGY AND GENOMIC MEDICINE INR 1.[address] [facility] DEPARTMENT OF Comment: PATHOLOGY AND GENOMIC The International Normalized Ratio (INR) is a therapeutic MEDICINE monitoring tool for patients who are stable on oral anticoagulant therapy. An INR of 2.0-3.0 is suggested for deep vein thrombosis/pulmonary embolism. Specimen Blood Performing Organization Address [facility] Phone Number [facility] DEPARTMENT OF PATHOLOGY AND [address] [place] [address] Immunofixation, serum (11/25/2017 2:04 PM CDT) Immunofixation, serum SEE COMMENTComment: See [facility] DEPARTMENT OF electrophoresis report below. PATHOLOGY AND [facility] MEDICINE Specimen Serum Performing Organization Address [facility] Phone Number [facility] DEPARTMENT OF PATHOLOGY AND [address] [place] [address] Serum electrophoresis (11/25/2017 2:04 PM CDT)Only the most recent of2 resultswithin the time period is included. Protein 6.0 (L) 6.3 - 8.3 g/dL [facility] DEPARTMENT OF Comment: PATHOLOGY AND [place] 4.6-7.0 g/dL GENOMIC MEDICINE 1 week 4.4-7.6 g/dL 7 months-1year5.1-7.3 g/dL 1-2 years5.6-7.5 g/dL >3 years6.0-8.0 g/dL 18-150 6.3-8.3 g/dL SPE albumin 3.10 (L) 4.00 - 5.[address] [facility] DEPARTMENT OF g/dL PATHOLOGY AND GENOMIC MEDICINE SPE alpha 1 0.16 0.10 - 0.[address] [facility] DEPARTMENT OF g/dL PATHOLOGY AND GENOMIC MEDICINE SPE alpha 2 0.91 (H) 0.58 - 0.[address] [facility] DEPARTMENT OF g/dL PATHOLOGY AND GENOMIC MEDICINE SPE beta 0.60 0.50 - 1.[address] [facility] DEPARTMENT OF g/dL PATHOLOGY AND GENOMIC MEDICINE SPE gamma 1.23 0.60 - 1.[address] [facility] DEPARTMENT OF g/dL PATHOLOGY AND GENOMIC MEDICINE SPE extended See Comment [facility] DEPARTMENT OF interpretation Comment: PATHOLOGY AND Compared to the study dated 11/21/2017, the previously identified multiple GENOMIC MEDICINE faint bands in the gamma region are still present on immunofixation electrophoresis. The 2 monoclonal IgG [place] bands and the monoclonal Lambda light chain [...] protein is noted. SPE interpretation See CommentComment: [facility] DEPARTMENT OF Michael Grimaldo MD; PATHOLOGY AND Ronald Garibay MD/PhD GENOMIC MEDICINE Specimen Serum Performing Organization Address City/State/Zipcode Phone Number [facility] DEPARTMENT OF PATHOLOGY AND [address] [place] [address] [facility] MEDICINE Vitamin D 25 hydroxy level (11/25/2017 4:35 AM CDT) Vitamin D, 25-hydroxy 20.0 (L) 30.0 - 150.[address] [facility] DEPARTMENT OF Comment: ng/mL PATHOLOGY AND [...] alternative methods. Specimen Blood Performing Organization Address City/[facility] Phone Number [facility] DEPARTMENT OF PATHOLOGY AND [address] [place] [phone] [place] [address] Ionized calcium (11/25/2017 4:35 AM CDT)Only the most recent of2 resultswithin the time period is included. pH 7.[address] [facility] DEPARTMENT OF PATHOLOGY AND GENOMIC MEDICINE Ionized calcium 1.05 (L) 1.11 - 1.32 mmol/L [facility] DEPARTMENT OF PATHOLOGY AND GENOMIC MEDICINE Specimen Plasma specimen Performing Organization Address City/[facility] Phone Number [facility] DEPARTMENT OF PATHOLOGY AND [address] [place], [place] [phone] [facility] [place] lambda free light chain with ratio (11/24/2017 4:45 AM CDT) [place] light chain 181.88 (H) 3.30 - 19.40 mg/L [facility] DEPARTMENT OF PATHOLOGY AND GENOMIC MEDICINE Lambda light chain 64.07 (H) 5.70 - 26.30 mg/L [facility] DEPARTMENT OF PATHOLOGY AND GENOMIC MEDICINE [place] lambda ratio 2.84 (H) 0.26 - 1.[address] [facility] DEPARTMENT OF PATHOLOGY AND [facility]INE Specimen Plasma specimen Performing Organization Address City/[facility]/Zipcode Phone Number [facility] DEPARTMENT OF PATHOLOGY AND [address] [place] [phone] [facility]INE Peripheral smear (11/24/2017 4:15 AM CDT) Peripheral smear Done [facility] DEPARTMENT OF PATHOLOGY Comment: AND [facility] Peripheral smear is located in Hematology Laboratory, second floor of [facility]. Performing Organization Address City/[facility]/Zipcode Phone Number [facility] DEPARTMENT OF PATHOLOGY AND [address] [place] [phone] [facility] Hepatitis B core antibody total (11/23/2017 11:25 AM CDT) Hepatitis B core total Ab Non-reactive Non-reactive [facility] DEPARTMENT OF PATHOLOGY AND [facility] MEDICINE Specimen Blood Performing Organization Address City/[facility] Centercode Phone Number [facility] DEPARTMENT OF PATHOLOGY AND [address] [place] [phone] [place] [address] Hepatitis B surface antibody (11/23/2017 11:25 AM CDT) Hepatitis B surface Ab Non-reactive Non-reactive [facility] DEPARTMENT OF PATHOLOGY AND [facility] Specimen Blood Performing Organization Address City/[facility] Centercode Phone Number [facility] DEPARTMENT OF PATHOLOGY AND [address] [place] [phone] [place] [address] TB IN-TUBE Quantiferon (11/23/2017 4:20 AM CDT) TB IN-TUBE Quantiferon SEE NOTE [facility] DEPARTMENT OF Comment: PATHOLOGY AND GENOMIC [...] 16 years. 3. women. Test performed by: [facility] Molecular Tuberculosis Lab [address] lab: [phone] fax: [phone] Specimen Blood Performing Organization Address City/[facility] Centercode Phone Number [facility] AND [address] [place] [phone] [place] [address] MEDICINE Manual differential (11/23/2017 3:45 AM CDT)Only the most recent of4 resultswithin the time period is included. Manual differential PERFORMED [facility] DEPARTMENT OF PATHOLOGY AND GENOMIC MEDICINE Neutrophils 94.0 (H) 39.0 - 69.0 % [facility] DEPARTMENT OF PATHOLOGY AND GENOMIC MEDICINE Lymphocytes 3.0 (L) 25.0 - 45.0 % [facility] DEPARTMENT OF PATHOLOGY AND GENOMIC MEDICINE Monocytes 1.0 0.0 - 10.0 % [facility] DEPARTMENT OF PATHOLOGY AND GENOMIC MEDICINE Eosinophils 0.0 0.0 - 5.0 % [facility] DEPARTMENT OF PATHOLOGY AND GENOMIC MEDICINE Basophils 0.0 0.0 - 1.0 % [facility] DEPARTMENT OF PATHOLOGY AND GENOMIC MEDICINE Metamyelocytes 2 % [facility] DEPARTMENT OF PATHOLOGY AND GENOMIC MEDICINE Promyelocytes 0 % [facility] DEPARTMENT OF PATHOLOGY AND GENOMIC MEDICINE Platelet slide review Mindy adequate [facility] DEPARTMENT OF PATHOLOGY AND GENOMIC MEDICINE Neutrophils, vacuolated Slight [facility] DEPARTMENT OF PATHOLOGY AND GENOMIC MEDICINE Anisocytosis Moderate [facility] DEPARTMENT OF PATHOLOGY AND GENOMIC MEDICINE Polychromasia Moderate [facility] DEPARTMENT OF PATHOLOGY AND GENOMIC MEDICINE Basophilic stippling Occasional [facility] DEPARTMENT OF PATHOLOGY AND GENOMIC MEDICINE Ovalocytes Moderate [facility] DEPARTMENT OF PATHOLOGY AND GENOMIC MEDICINE Enlarged platelets Moderate (A) [facility] DEPARTMENT OF PATHOLOGY AND GENOMIC MEDICINE Giant platelets Occasional [facility] DEPARTMENT OF PATHOLOGY AND GENOMIC MEDICINE Performing Organization Address City/[facility] Centercode Phone Number [facility] DEPARTMENT OF PATHOLOGY AND [address] [place] [phone] [facility] MEDICINE Bilirubin direct (11/23/2017 3:45 AM CDT) Bilirubin direct <0.2 0.0 - 0.3 mg/dL [facility] DEPARTMENT OF PATHOLOGY AND GENOMIC MEDICINE Specimen Plasma specimen Performing Organization Address City/[facility]ercode Phone Number [facility] DEPARTMENT OF PATHOLOGY AND [address] [place] [phone] GENOMIC MEDICINE Microalbumin, urine, random (11/22/2017 9:00 PM CDT) Total volume, urine No volume mL [facility] DEPARTMENT OF PATHOLOGY AND GENOMIC MEDICINE Urine creatinine concentration 353 mg/dL [facility] DEPARTMENT OF PATHOLOGY AND GENOMIC MEDICINE Urine microalbumin concentration >440.0 mg/dL [facility] DEPARTMENT OF PATHOLOGY AND GENOMIC MEDICINE Urine microalbumin/creatinine 1,246 (H) 0 - 30 mg/g [facility] DEPARTMENT OF PATHOLOGY ratio AND GENOMIC MEDICINE Specimen Urine Performing Organization Address [facility] Centercoin Phone Number [facility] DEPARTMENT OF PATHOLOGY AND [address] [place] [phone] GENOMIC MEDICINE Sodium level, urine, random (11/22/2017 9:00 PM CDT) Sodium, urine, random <20 mEq/L [facility] DEPARTMENT OF PATHOLOGY AND GENOMIC MEDICINE Specimen Urine Performing Organization Address City/[facility] Centercode Phone Number [facility] DEPARTMENT OF PATHOLOGY AND [address] [place] [phone] GENOMIC MEDICINE Protein, urine, random (11/22/2017 9:00 PM CDT) Protein, urine random 2,244 mg/dL [facility] DEPARTMENT OF PATHOLOGY AND GENOMIC MEDICINE Specimen Urine Performing Organization Address City/[facility]ercode Phone Number [facility] DEPARTMENT OF PATHOLOGY AND [address] [place] [phone] GENOMIC MEDICINE Creatinine level, urine, random (11/22/2017 9:00 PM CDT) Creatinine, urine, random 353 mg/dL [facility] DEPARTMENT OF PATHOLOGY AND GENOMIC MEDICINE Specimen Urine Performing Organization Address City/[facility]ercode Phone Number [facility] DEPARTMENT OF PATHOLOGY AND [address] [place] [phone] GENOMIC MEDICINE Gastrointestinal panel (11/22/2017 8:56 PM CDT) Gastrointestinal panel Negative for all pathogens tested: [facility] DEPARTMENT OF Negative for Salmonella PATHOLOGY [...] Specimen Stool - Nonpreserved Performing Organization Address City/[facility] Centercode Phone Number [facility] DEPARTMENT OF PATHOLOGY AND [address] [place] [address] West Nile virus by PCR, plasma (11/22/2017 11:05 AM CDT) West Nile virus PCR, Not-Detected Not-Detected [facility] DEPARTMENT OF plasma PATHOLOGY AND [facility] MEDICINE West Nile virus PCR, See link below for [facility] DEPARTMENT OF plasma PDF Lab PATHOLOGY AND GENOMIC ReportComment: Case MEDICINE Number: [id number] Specimen Blood Performing Organization Address City/[facility]ercode Phone Number [facility] DEPARTMENT OF PATHOLOGY AND [address] [place] [phone] [facility] Cryo, globulin and fibrinogen (11/22/2017 8:05 AM CDT) Cryoglobulin Negative Negative [facility] DEPARTMENT OF PATHOLOGY AND GENOMIC MEDICINE Cryocrit globulin 0.0 Negative % [facility] DEPARTMENT OF PATHOLOGY AND GENOMIC MEDICINE Cryofibrinogen Negative Negative [facility] DEPARTMENT OF PATHOLOGY AND GENOMIC MEDICINE Cryocrit fibrinogen 0.0 Negative % [facility] DEPARTMENT OF PATHOLOGY AND GENOMIC MEDICINE Specimen Blood Performing Organization Address City/[facility]ercode Phone Number [facility] DEPARTMENT OF PATHOLOGY AND [address] [place] [phone] [facility] Blood culture, fungus (11/22/2017 8:05 AM CDT) Blood culture isolate, No fungus isolated in [address] [facility] DEPARTMENT OF fungus Comment: PATHOLOGY AND GENOMIC Specimen Information MEDICINE Specimen Source: Blood Specimen Site: Unspecified Specimen Blood Performing Organization Address City/[facility] Centercode Phone Number [facility] DEPARTMENT OF PATHOLOGY AND [address] HIV Ag/Ab combination (11/22/2017 4:40 AM CDT) HIV Ag/Ab combination Non-reactive Non-reactive [facility] DEPARTMENT OF PATHOLOGY AND GENOMIC MEDICINE Specimen Serum Performing Organization Address City/State/[facility] Centercode Phone Number [facility] DEPARTMENT OF PATHOLOGY AND [address] [place] [address] Cytomegalovirus by PCR (11/22/2017 4:40 AM CDT) Cytomegalovirus by PCR Not-Detected Not-Detected IU/mL [facility] DEPARTMENT OF PATHOLOGY AND GENOMIC MEDICINE Cytomegalovirus by PCR See link below for [facility] DEPARTMENT OF PDF Lab PATHOLOGY AND GENOMIC ReportComment: Case MEDICINE Number: [id number] Performing Organization Address City/State/[facility] Centercode Phone Number [facility] DEPARTMENT OF PATHOLOGY AND [address] [place] [address] Radu Osullivan Virus (EBV) by PCR (11/22/2017 4:40 AM CDT) Radu Osullivan virus, PCR Not-Detected Not-Detected [facility] DEPARTMENT OF copies/mL PATHOLOGY AND [facility] MEDICINE Radu Osullivan virus, PCR See link below for [facility] DEPARTMENT OF [facility] Lab PATHOLOGY AND GENOMIC ReportComment: Case MEDICINE Number: [id number] Performing Organization Address City/[facility] Centercode Phone Number [facility] DEPARTMENT OF PATHOLOGY AND [address] [place] [address] Hepatitis acute panel (11/22/2017 4:40 AM CDT) Hepatitis A IgM Non-reactive Non-reactive [facility] DEPARTMENT OF PATHOLOGY AND GENOMIC MEDICINE Hepatitis B core IgM Non-reactive Non-reactive [facility] DEPARTMENT OF PATHOLOGY AND GENOMIC MEDICINE Hepatitis B surface Ag Non-reactive Non-reactive [facility] DEPARTMENT OF PATHOLOGY AND GENOMIC MEDICINE Hepatitis C Ab Non-reactive Non-reactive [facility] DEPARTMENT OF PATHOLOGY AND GENOMIC MEDICINE Specimen Serum Performing Organization Address City/State/Zipcode Phone Number [facility] DEPARTMENT OF PATHOLOGY AND [address] [place] [address] Thyroid stimulating hormone (11/22/2017 4:40 AM CDT) TSH 1.53 0.27 - 4.20 uIU/mL [facility] DEPARTMENT OF PATHOLOGY AND GENOMIC MEDICINE Specimen Plasma specimen Performing Organization Address City/State/Zipcode Phone Number [facility] DEPARTMENT OF PATHOLOGY AND [address] [place] [address] Hemoglobin A1c (11/22/2017 4:40 AM CDT) Hemoglobin A1C 5.9 (H) 4.0 - 5.6 % [facility] DEPARTMENT OF PATHOLOGY Comment: AND [facility] HbA1c cutoffs for diagnosing diabetes: 4.0% - 5.6%=normal 5.7% - 6.4%=increased risk for diabetes (prediabetes) >=6.5%=diabetes Goals for glycemic control (ADA 2016) < 7.0%Target for non adults with diabetes. More or less stringent targets may be appropriate for individual patients. <7.5% Target for Children and adolescents with type 1 diabetes. Specimen Blood Performing Organization Address City/State/Zipcode Phone Number [facility] DEPARTMENT OF PATHOLOGY AND [address] [place] [address] [facility] US Renal (11/21/2017 4:45 PM CDT) Narrative Performed At EXAMINATION:US RENAL RADIANT CLINICAL HISTORY:Elevated abnormal renal function tests COMPARISON:None. FINDINGS: The kidneys are generally increased in echogenicity suggesting a degree of chronic renal disease.. There is no evidence of solid renal mass, stone or hydronephrosis. The right kidney measures 12.3 x 5.0 x 5.1 cm.There is a 1.2 cm cyst.. The left kidney yrlxlmgs48.1 x 6.3 x 5.3 cm.There are 2 cysts measuring 1.2 cm and 1.1 cm.. The urinary bladder is empty as the patient voided shortly before the exam.. IMPRESSION: Signs of chronic renal disease.Bilateral renal cysts.. [facility]-[id number] Procedure Note [facility], Radiology Results Incoming - 11/21/2017 5:52 PM [...] of chronic renal disease. Bilateral renal cysts.. [facility]-[id number] Performing Organization Address City/[facility]/Zipcode Phone Number [facility] [address] [place] [address] Respiratory pathogen panel (11/21/2017 3:45 PM CDT) Respiratory pathogen Negative for all pathogens tested: [facility] DEPARTMENT OF panel Negative for Adenovirus [...] Specimen Nares - Right Performing Organization Address [facility] Centercode Phone Number [facility] DEPARTMENT OF PATHOLOGY AND [address] [place] [address] Total iron binding capacity (11/21/2017 5:50 AM CDT) Iron level 31 (L) 59 - 158 ug/dL [facility] DEPARTMENT OF PATHOLOGY AND GENOMIC MEDICINE Iron binding capacity 216 200 - 400 ug/dL [facility] DEPARTMENT OF PATHOLOGY AND GENOMIC MEDICINE % Saturation 14.4 (L) 20.0 - 40.0 % [facility] DEPARTMENT OF PATHOLOGY AND GENOMIC MEDICINE Specimen Plasma specimen Narrative Performed At SPOKE WITH NURSE QUESADA [facility] DEPARTMENT OF PATHOLOGY AND GENOMIC 11/21/201706:55 MEDICINE Performing Organization Address [facility]/Zipcode Phone Number [facility] DEPARTMENT OF PATHOLOGY AND [address] [place] [phone] [place] [address] Glomerular basement membrane Ab IgG (IFA) (11/21/2017 [...] biopsy. Test developed and characteristics determined by [facility]. See Compliance Statement D: [employer]/ Performed by [facility], [address] [place] [address] [email or web address], Orville Dasilva MD - Lab. Director Specimen Serum Narrative Performed At SPOKE WITH NURSE QUESADA 11/21/201706:55 [facility] added MG/PHOS per Dr Spencer 11/21/2017 07:36 by MARYJANE Spring results called to and read back Milagros CHRISTENSEN(name/location) at11/21/201707:35 (date/time) by LS2. Performing Organization Address City/[facility] Centercode Phone Number [facility] [address] [place] [address] Immunofixation, serum (11/21/2017 5:50 AM CDT) Immunofixation, serum SEE COMMENTComment: See [facility] DEPARTMENT OF electrophoresis report below. PATHOLOGY AND GENOMIC MEDICINE Specimen Serum Performing Organization Address City/[facility]/Zipcode Phone Number [facility] DEPARTMENT OF PATHOLOGY AND [address] [place] [phone] [facility] MEDICINE Antistreptolysin O (11/21/2017 5:50 AM CDT) Antistreptolysin O 49 0 - 200 IU/mL [facility] DEPARTMENT OF PATHOLOGY AND GENOMIC MEDICINE Specimen Blood Narrative Performed At SPOKE WITH NURSE QUESADA [facility] DEPARTMENT OF PATHOLOGY AND GENOMIC 11/21/201706:55 MEDICINE added MG/PHOS per Dr Spencer 11/21/2017 07:36 by MARYJANE Spring results called to and read back Milagros CHRISTENSEN(name/location) at11/21/201707:35 (date/time) by LS2. Performing Organization Address City/[facility]/Zipcode Phone Number [facility] DEPARTMENT OF PATHOLOGY AND [address] [place], [place] [phone] [facility] Blood culture, aerobic & anaerobic (11/21/2017 5:50 AM CDT) Blood culture isolate No growth after 5 days of incubation. [facility] DEPARTMENT OF Comment: PATHOLOGY AND GENOMIC Specimen Information MEDICINE Specimen Source: Blood Specimen Site: Wrist, left Specimen Blood - Wrist, left Performing Organization Address City/[facility]ercode Phone Number [facility] DEPARTMENT OF PATHOLOGY AND [address] [place] [phone] [place] [address] MEDICINE Reticulocyte count (11/21/2017 5:50 AM CDT) Retic %, auto 2.8 (H) 0.5 - 2.1 % [facility] DEPARTMENT OF PATHOLOGY AND GENOMIC MEDICINE Retic absolute, auto 0.1008 0.0220 - 0.1260 m/uL [facility] DEPARTMENT OF PATHOLOGY AND GENOMIC MEDICINE Specimen Blood Narrative Performed At SPOKE WITH NURSE QUESADA [facility] DEPARTMENT OF PATHOLOGY AND GENOMIC 11/21/201706:55 MEDICINE added MG/PHOS per Dr Spencer 11/21/2017 07:36 by MARYJANE K results called to and read back byRONY MONTILLA/VINNY(name/location) at11/21/201707:35 (date/time) by LS2. Performing Organization Address [facility] Centercode Phone Number [facility] DEPARTMENT OF PATHOLOGY AND [address] [place] [address] Ferritin level (11/21/2017 5:50 AM CDT) Ferritin level 91 30 - 400 ng/mL [facility] DEPARTMENT OF PATHOLOGY AND GENOMIC MEDICINE Specimen Plasma specimen Narrative Performed At SPOKE WITH NURSE QUESADA [facility] DEPARTMENT OF PATHOLOGY AND GENOMIC 11/21/201706:55 MEDICINE Performing Organization Address [facility]/Zipcode Phone Number [facility] DEPARTMENT OF PATHOLOGY AND [address] [place] [phone] [facility] Urine eosinophils (11/20/2017 7:00 AM CDT) Eosinophils, urine PRESENT (A) [facility] DEPARTMENT OF PATHOLOGY AND GENOMIC MEDICINE Specimen Urine Performing Organization Address City/[facility]/Zipcode Phone Number [facility] DEPARTMENT OF PATHOLOGY AND [address] [place] [phone] [facility] Occult blood, stool (11/20/2017 7:00 AM CDT) Occult blood, stool Positive for Occult blood (A) [facility] DEPARTMENT OF Comment: PATHOLOGY AND GENOMIC Specimen Information MEDICINE Specimen Source: Stool Specimen Site: Nonpreserved Specimen Stool - Nonpreserved Performing Organization Address City/[facility]/Zipcode Phone Number [facility] DEPARTMENT OF PATHOLOGY AND [address] [place] [address] Anti-neutrophilic cytoplasmic Abs panel (11/20/2017 4:30 AM CDT) ANCA screen Negative Negative [facility] DEPARTMENT OF PATHOLOGY AND GENOMIC MEDICINE Specimen Blood Performing Organization Address City/[facility]ercode Phone Number [facility] DEPARTMENT OF PATHOLOGY AND [address] [place] [address] Urinalysis, automated with microscopy (11/20/2017 4:30 AM CDT) Color, UA Renita [facility] DEPARTMENT OF PATHOLOGY AND GENOMIC MEDICINE Appearance, UA Cloudy [facility] DEPARTMENT OF PATHOLOGY AND GENOMIC MEDICINE Specific gravity, UA 1.039 (H) 1.001 - 1.[address] [facility] DEPARTMENT OF PATHOLOGY AND GENOMIC MEDICINE pH, UA 5.0 5.0 - 8.[address] [facility] DEPARTMENT OF PATHOLOGY AND GENOMIC MEDICINE Protein, UA 3+ (A) Negative [facility] DEPARTMENT OF PATHOLOGY AND GENOMIC MEDICINE Glucose, UA 1+ (A) Negative [facility] DEPARTMENT OF PATHOLOGY AND GENOMIC MEDICINE Ketones, UA Trace (A) Negative [facility] DEPARTMENT OF PATHOLOGY AND GENOMIC MEDICINE Bilirubin, UA Positive@UBIL (A) Negative [facility] DEPARTMENT OF PATHOLOGY AND GENOMIC MEDICINE Blood, UA Large (A) Negative [facility] DEPARTMENT OF PATHOLOGY AND GENOMIC MEDICINE Nitrite, UA Negative Negative [facility] DEPARTMENT OF PATHOLOGY AND GENOMIC MEDICINE Urobilinogen, UA <2.0 <2.[address] [facility] DEPARTMENT OF PATHOLOGY AND GENOMIC MEDICINE Leukocyte esterase, UA Small (A) Negative [facility] DEPARTMENT OF PATHOLOGY AND GENOMIC MEDICINE Epithelial cells, UA 10 /HPF [facility] DEPARTMENT OF PATHOLOGY AND GENOMIC MEDICINE Round epithelial cells, UA 3 (H) 0 - 1 /HPF [facility] DEPARTMENT OF PATHOLOGY AND GENOMIC MEDICINE WBC, UA >180 (H) 0 - 1 /HPF [facility] DEPARTMENT OF PATHOLOGY AND GENOMIC MEDICINE RBC, UA >180 (H) 0 - 5 /HPF [facility] DEPARTMENT OF PATHOLOGY AND GENOMIC MEDICINE Bacteria, UA Moderate (A) None seen [facility] DEPARTMENT OF PATHOLOGY AND GENOMIC MEDICINE Hyaline casts, UA 16 /LPF [facility] DEPARTMENT OF PATHOLOGY AND GENOMIC MEDICINE WBC clumps, UA Few (A) [facility] DEPARTMENT OF PATHOLOGY AND GENOMIC MEDICINE Yeast, UA None seen [facility] DEPARTMENT OF PATHOLOGY AND GENOMIC MEDICINE Yeast with pseudohyphae, UA None seen [facility] DEPARTMENT OF PATHOLOGY AND GENOMIC MEDICINE Specimen Urine Performing Organization Address City/[facility] Centercode Phone Number [facility] DEPARTMENT OF PATHOLOGY AND [address] [place] [phone] GENOMIC MEDICINE Rheumatoid factor (11/20/2017 4:30 AM CDT) Rheumatoid factor 17 (H) 0 - 13 IU/mL [facility] DEPARTMENT OF PATHOLOGY AND GENOMIC MEDICINE Specimen Plasma specimen Performing Organization Address City/[facility] Centercode Phone Number [facility] DEPARTMENT OF PATHOLOGY AND [address] [place] [address] GENOMIC MEDICINE C3 complement component (11/20/2017 4:30 AM CDT) C3 complement <39 (L) 90 - 180 mg/dL [facility] DEPARTMENT OF PATHOLOGY AND GENOMIC MEDICINE Specimen Plasma specimen Performing Organization Address [facility] Centercode Phone Number [facility] DEPARTMENT OF PATHOLOGY AND [address] [place] [address] MEDICINE C4 complement component (11/20/2017 4:30 AM CDT) C4 complement 4 (L) 10 - 40 mg/dL [facility] DEPARTMENT OF PATHOLOGY AND GENOMIC MEDICINE Specimen Plasma specimen Performing Organization Address [facility] [place] Number [facility] DEPARTMENT OF PATHOLOGY AND [address] [place] [address] GENOMIC MEDICINE Lipid panel (11/20/2017 4:30 AM CDT) Cholesterol 147 <200 mg/dL [facility] DEPARTMENT OF PATHOLOGY AND GENOMIC MEDICINE Triglycerides 184 (H) <150 mg/dL [facility] DEPARTMENT OF PATHOLOGY AND GENOMIC MEDICINE HDL cholesterol 54 >40 mg/dL [facility] DEPARTMENT OF PATHOLOGY AND GENOMIC MEDICINE LDL cholesterol 71Comment: Result <100 mg/dL [facility] DEPARTMENT OF obtained by direct LDL PATHOLOGY AND GENOMIC measurement MEDICINE Lipid panel interpretation SeeBelow [facility] DEPARTMENT OF Comment: PATHOLOGY AND GENOMIC Total Cholesterol (mg/dL) MEDICINE <200 Desirable 457-590Cblamezuuq-gqui >=240High Triglycerides (mg/dL) <150 Normal 391-045Yteivqajgl-ejtg 200-499High >=500Very high HDL Cholesterol (mg/dL) <40Low (male) <40Low (female) LDL Cholesterol (mg/dL) <100 Optimal 100-129Near or above optimal 530-765Bambwaqlop-ooje 160-189High >=190Very high Risk Catergories that modify [...] mg/dL) Specimen Plasma specimen Performing Organization Address City/[facility] Phone Number [facility] DEPARTMENT OF PATHOLOGY AND [address] [place] [phone] [facility] MEDICINE ECG 12 lead (11/19/2017 10:19 PM CDT) Ventricular rate 63 [facility] Atrial rate 63 [facility] M[facility] UT interval 112 [facility] QRSD interval 126 [facility] QT interval 440 [facility] M[facility] QTC interval 450 [facility] M[facility] P axis 1 0 HM MUSE QRS axis 1 67 [facility] M[facility] T wave axis 39 [facility] M[facility] EKG impression Normal sinus rhythm-Right bundle branch [facility] MUSE block-Abnormal ECG-No previous ECGs available- Performing Organization Address [facility] [place] Phone Number [facility] MUSE [address] [place] [phone] Sedimentation rate (11/19/2017 10:10 PM CDT) Sedimentation rate 46 (H) 0 - 10 mm/hr [facility] DEPARTMENT OF PATHOLOGY AND GENOMIC MEDICINE Performing Organization Address [facility] Phone Number [facility] DEPARTMENT OF PATHOLOGY AND [address] [place] [phone] [facility] MEDICINE C-reactive protein (11/19/2017 10:10 PM CDT) CRP 2.26 (H) 0.00 - 0.50 mg/dL [facility] DEPARTMENT OF PATHOLOGY AND GENOMIC MEDICINE Specimen Plasma specimen Performing Organization Address [facility] Phone Number [facility] DEPARTMENT OF PATHOLOGY AND [address] [place] [phone] GENOMIC MEDICINE after 10/24/2017 Insurance Payer Benefit Plan / Group Subscriber ID Type Phone Address [employer] [facility] xxxxxxxxx HMO Advance Directives Patient has advance care planning documents on file. For more information, please contact:[place] [place] [phone]
[2018-10-25] MEDS ORDERED: NA CHLORIDE 0.9% 250 ML IV SCH (11:00)
[2018-10-25 12:33] LABS: CKMB Creatine Kinase MB 1.4 ng/mL (0.3-3.6)
[2018-10-25] MEDS ORDERED: NA CHLORIDE 0.9% 250 ML ONE (13:35)
[2018-10-25] MEDS ORDERED: PNEUMOCOCCAL VACCINE 0.5 ML IMVAC ONE (14:00)
[2018-10-25 14:23] LABS: Urine Appearance CLOUDY; Urine Blood 2+ (NEG); Urine Color YELLOW; Urine Glucose TRACE (NEG); Urine Protein 3+ (NEG); Urine Urobilinogen 0.2 mg/dL (0.2-1.0)
[2018-10-25 14:31] LABS: Urine Bilirubin NEGATIVE (NEG); Urine Microscopic Reflex ORDER UMIC
[2018-10-25 14:49] LABS: Urine Bacteria 20-50 /HPF (NONE SEEN); Urine Culture Reflex Order REFLEXED; Urine Mucus 2+ /HPF (NONE SEEN); Urine RBC 20-50 /HPF (NONE SEEN)
--- NOTE | 2018-10-25 17:39 | RAD REPORT ---
EXAM DESCRIPTION: US - Renal Ultrasound-Complete - 10/25/2018 5:32 pm CLINICAL HISTORY: Acute renal insufficiency COMPARISON: November 2017 FINDINGS: The right kidney measures 13 cm with an increased echotexture. The left kidney measures 12 cm with an increased echotexture. Small renal cysts Hydronephrosis is not seen. No gross abnormality of bladder is seen IMPRESSION: Increased renal echotexture consistent with parenchymal disease
--- NOTE | 2018-10-25 17:45 | CON ---
Consulting Physician: Ousmane Albrecht MD Reason For Consultation: Elevated BUN and creatinine, hypertension. 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 The patient received 6 doses of Cytoxan, last treatment was around February last year. The patient has been following up i n the office on a regular basis. Last creatinine in the office back in September 08.4, GFR of 47. Appare ntly, the patient had peptic ulcer disease, had EGD for followup a couple of weeks ago, found to have active bleed, underwent cauterization and discharged. The patient started feeling weak, losing ener gy, visit with Dr. Natarajan. Primary workup show hemoglobin 6.3/20 and elevation in creatinine, creatini ne was 2, GFR dropped to 31. For that reason, was admitted. Also, the patient had potassium of 5.3 with mild acidosis of carbon dioxide of 19. For that reason, we have been consulted. The patient de nied any recent change in his medication. No fever or chills. Denied any black stool. The patient complaining of cough for the last few month without any improvement. Past Medical History: 1.ANCA-induced nephritis confirmed with biopsy, status post Cytoxan for full 6 months with good shlomo very. Baseline creatinine 1.4, GFR of 47, back in September 2018. 2.Hypertension. 3.Hyperlipidemia. 4.Peptic ulcer disease. 5.Obstructive sleep apnea. 6.Prostate CA, status post resection. Home Medications: Include Flomax, Zofran, finasteride. Family History: Positive for diabetes and hypertension. Social History: Denies smoking. Denies drinking. Denies drug abuse. Past Surgical History: Include kidney biopsy, EGD. Review of Systems: Head and Neck: No red eye. No ear pain. GI: Epigastric pain. : No polyuria. No dysuria. No hematuria. 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 Respiratory: No shortness of breath. Cardiovascular: Leg swelling. Endocrine: No polydipsia. Skin: No rash. Neurologic: No neuropathy. Musculoskeletal: Generalized fatigue. Physical Examination: Vital Signs: When I saw the patient, the patient was lying in bed, comfortable. Vital Signs: Blood pressure 145/77, pulse of 62. Chest: Clear to auscultation. Heart: S1, S2. Regular rhythm. Systolic murmur. Abdomen: Soft, nontender. Extremities: Trace edema. Neurologic: Alert and oriented x3. Nonfocal. Laboratory Data: Lab data for the patient done yesterday: Sodium 140, potassium 5.3, chloride 111, bicarb 19, BUN 34, creatinine 2, GFR of 31. WBC 12.8, H and H 6.3/20, platelets of 220. He has sign ificant neutrophils shift 11,800. Chest x-ray showing cardiomegaly with congestion. Assessment And Plan: 1.Acute kidney injury on chronic kidney disease with history of autoimmune disease and presence of t he anemia. I am going to go ahead and send for full workup. I going to repeat the serology, renal u ltrasound, and we will follow up in the presence of anemia, autoimmune/hemolytic need to be ruled out . We will send for LDH and haptoglobin and we will follow up. 2.Hypertension, controlled, optimal. Continue current monitoring. I going to give Lasix after the transfusion. 3.Symptomatic anemia with congestive heart failure. I am going to go ahead and send for transfusion . We will give Lasix. We will place the patient on Lasix 40 daily and we will follow up. 4.Anemia, possible secondary to gastrointestinal loss with the presence of acute kidney injury and t he history of autoimmune disease, ANCA-induced. We need to rule out any autoimmune disease or intrav ascular hemolysis. Even though patient had the source of the GI loss, we will follow up with GI. I am going to send for the workup. 5.Marginal hyperkalemia, going to be improved with diuresis. Mostly, it is secondary to gastrointes tinal bleed. 6.ANCA-induced nephritis as above. Thank you, Dr. Natarajan, for allowing us to participate in the care of your patient. MISSAEL Voice ID: [id number] Report ID: [id number]
[2018-10-25 18:48] LABS: Urine Protein/Creatinine Ratio 2.8 ratio (<0.15)
[2018-10-25 20:19] LABS: Hematocrit 24.5 % (39.6-49.0)
[2018-10-25] MEDS: MYCOPHENOLATE MOFETIL 500 MG PO SCH (21:00)
[2018-10-26 05:11] LABS: RBC Red Blood Cell Count 2.36 M/uL (4.33-5.43)
[2018-10-26 06:49] LABS: Albumin 2.3 g/dL (3.4-5.0); BUN Blood Urea Nitrogen 48 mg/dL (7-18); Bicarbonate 21 mmol/L (21-32); Ferritin 95.8 ng/mL (26-388); Folic Acid, (Folate) > 20.0 ng/mL (3.1-17.5); Glucose Level 108 mg/dL (74-106); Magnesium 2.1 mg/dL (1.8-2.4); Phosphorus 5.1 mg/dL (2.5-4.9); Potassium 5.5 mmol/L (3.5-5.1); Sodium Level 140 mmol/L (136-145); Transferrin 158 mg/dL (200-360); Uric Acid 10.6 mg/dL (3.5-7.2)
[2018-10-26] MEDS: PANTOPRAZOLE 40MG TABLET PO SCH (07:30)
[2018-10-26 08:37] LABS: Rheumatoid Factor NEG (NEG)
[2018-10-26] MEDS: FUROSEMIDE 40 MG TABLET PO SCH (09:00)
[2018-10-26] MEDS: MULTIVITAMINS,THERAPEUT 1 TAB PO SCH (09:00)
[2018-10-26] MEDS ORDERED: HOME MED 1 EA UNK (Furosemide [Lasix] 80 MG) PO SCH (09:00)
[2018-10-26] MEDS: TAMSULOSIN 0.4 MG SR CAP PO SCH (09:00)
[2018-10-26] MEDS: MYCOPHENOLATE MOFETIL 500 MG PO SCH ×2 (09:00→21:00)
[2018-10-26] MEDS ORDERED: LISINOPRIL 5 MG TAB PO SCH (09:00)
[2018-10-26] MEDS ORDERED: SMZ./TMP. 800/160 MG TABLET PO SCH (09:00)
[2018-10-26] MEDS ORDERED: NA CHLORIDE 0.9% 250 ML ONE (11:04)
[2018-10-26] MEDS ORDERED: D50W 25 GM/50 ML SYRINGE IV PRN (11:18)
[2018-10-26] MEDS ORDERED: CALCIUM GLUC 10% INJ 4.65 MEQ in NA CHLORIDE 0.9% 100 ML IV ONE (11:18)
[2018-10-26] MEDS ORDERED: INSULIN -REGULAR HUMAN 50 UNIT/0.5 ML ML SQ ONE (11:18)
--- NOTE | 2018-10-26 11:27 | RAD REPORT ---
EXAM DESCRIPTION: RAD - Small Bowel Series - 10/26/2018 10:38 am CLINICAL HISTORY: Anemia, GI bleed COMPARISON: None. FINDINGS: Hacksaw Inspector film shows a nonspecific bowel gas pattern. No obstruction or free air. No suspiciou s calcifications. Cholecystectomy clips are seen in the right upper quadrant. Gastric size and mucosal fold pattern are normal. No delay in transit of contrast into the small nicholas l. Small bowel is normal in diameter with no mucosal fold thickening. No intrinsic or extrinsic mass identifiable. Terminal ileum has normal appearance. Transit time to the colon is 1 hour, normal. IMPRESSION: Normal small bowel series. Transit time was 1 hour.
--- NOTE | 2018-10-26 12:18 | P.PN ---
Subjective Date of Service: 10/26/18 Subjective: No new changes Pt with persistent coughing Bp border line K 5.5. will avoid kayexalate due to abdominal distension , will give calcium gluoconate, D50 + insulin will rpt CXR will dc bactrim and DOLORES If K cont to be high then will consider IVF vs bicarb drip + lasix abd distension: pending abd series will start on IV iron Physical Examination - Vital Signs Temperature: 98.8 F Blood Pressure: 101/50 Pulse: 86 Respirations: 20 Pulse Ox (%): 98 - Physical Exam General: In no apparent distress, Oriented x3 HEENT: Atraumatic Neck: Supple, Without JVD or thyroid abnormality Respiratory: Clear to auscultation bilaterally, Normal air movement Cardiovascular: No edema, Regular rate/rhythm, Normal S1 S2, No murmurs Gastrointestinal: Distended - Studies Laboratory Data (last 24 hrs) 10/26/18 04:55: Sodium 140, Potassium 5.5 H, BUN 48 H, Creatinine 3.20 H, Glucose 108 H, Uric Acid 10.6 H, Phosphorus 5.1 H, Magnesium 2.1 10/25/18 20:10: Hgb 7.9 L*, Hct 24.5 L Assessment And Plan - Current Problems (Diagnosis) (1) Acute renal failure Onset Date: 11/09/17 Current Visit: No Status: Acute Qualifiers: Acute renal failure type: unspecified Qualified Code(s): N17.9 - Acute kidney failure, unspecified (2) Hyperkalemia Onset Date: 11/09/17 Current Visit: No Status: Acute - Plan Acute kidney injury on chronic kidney disease Cr baseline ~1.5 UA: many RPC, UPC 2.8 US; no hydro, echogenic kidneys uric acid 10, CK WNl F/U serology W/U rita send for UPEP hyperkalemia possibly due to CKD +/- DOLORES and Bactri, will dc DOLORES and bactrim will avoid kayexalate might need temporary HD if K cont to be high will consider adding IVF vs bicarb drip if cont ot be high Anemia Hx of gi bellding low iron stores LDH , b12 and folate wnl will start IV iron ANCA-induced pt on cellcept will DV bactrim abd distension f/u Gi series Gi evaluation
[2018-10-26] MEDS ORDERED: ALBUTEROL 2.5 MG/3 ML NEB SOL NEB ONE ×2 (12:25→21:14)
--- NOTE | 2018-10-26 15:33 | RAD REPORT ---
EXAM DESCRIPTION: RAD - Chest Pa And Lat (2 Views) - 10/26/2018 3:23 pm CLINICAL HISTORY: fluid overload Chest pain. COMPARISON: Chest Pa And Lat (2 Views) dated 10/24/2018; Chest Pa And Lat (2 Views) dated 05/17/2018; Chest Single View dated 11/17/2017; Chest Single View dated 11/16/2017 FINDINGS: Mild interstitial pulmonary edema is again noted, without significant change. Increasing l eft retrocardiac lung opacity is seen, suspicious for developing infiltrate or pneumonia. The heart i s upper limit of normal in size. No displaced fractures.
[2018-10-26] MEDS: SOD FERRIC GLUC COMPLX/SUCROSE 125 MG in NA CHLORIDE 0.9% 100 ML IV SCH (15:39)
[2018-10-26 19:38] LABS: Potassium 5.4 mmol/L (3.5-5.1)
--- NOTE | 2018-10-26 19:48 | HP ---
Date of Admission: 10/25/2018 Chief Complaint: Severe anemia, fatigue, dyspnea. History Of Present Illness: A 73-year-old male was brought to the office the day before with dyspnea and feeling tired. The patient did not want to go into hospital, so outpatient lab was done. This showed hemoglobin that was 6 g. He also had evidence of pulmonary congestion and edema and renal major lure. 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 Other medical problems include fluid retention and pulmonary congestion, gastroesophageal reflux disease, BPH. Family History: Noncontributory. Personal History: No known allergies. Home Medicines: Lasix, folic acid, lisinopril, mycophenolate, pantoprazole, Bactrim, Flomax. Review of Systems: The patient denied any history of chest pain. Physical Examination: General: Revealed 73-year-old male, alert and oriented. Vital Signs: Afebrile. Blood pressure 100/70. HEENT: Conjunctival pallor noted. Neck: Supple. JVD negative. Chest: Scattered wheeze bilaterally. Heart: Regular. Abdomen: Mild distention. No palpable mass. Extremities: Mild pedal edema. Laboratory Data: Showed potassium 5.5, BUN 48, creatinine 3.2. Chest x-ray, pulmonary congestion. Assessment: 1.Severe anemia. 2.Renal failure. 3.No history of interstitial autoimmune nephritis. Plan: The patient is going to receive second unit because of his low blood pressure. However, renal consult has been done to see whether anemia represents a manifestation of his renal disease as his c reatinine function has worsened. TAYLER/BRIGIDA Voice ID: [id number]
[2018-10-26] MEDS ORDERED: FUROSEMIDE 40 MG/4 ML VIAL IV ONE (20:11)
[2018-10-26] MEDS ORDERED: D50W 25 GM/50 ML SYRINGE IV ONE (21:20)
[2018-10-26] MEDS ORDERED: INSULIN -REGULAR HUMAN 50 UNIT/0.5 ML ML IV ONE (21:22)
[2018-10-26] MEDS ORDERED: NA CHLORIDE 0.9% 500 ML IV ONE (21:22)
[2018-10-27 06:28] LABS: Absolute Lymphocytes (CBC) 0.2 K/uL (0.7-4.9); Absolute Monocytes 0.7 K/uL (0.1-1.3); Absolute Neutrophil 6.2 K/uL (1.8-8.0); Basophils % 0.3 % (0-1.3); Eosinophils % 0.4 % (0-4.4); Hematocrit 24.7 % (39.6-49.0); Lymphocytes % 2.4 % (15.3-44.8); MPV 8.5 fL (7.6-11.3); Monocytes % 10.4 % (3.3-12.3); RBC Red Blood Cell Count 2.62 M/uL (4.33-5.43)
[2018-10-27 06:49] LABS: Magnesium 2.1 mg/dL (1.8-2.4); Phosphorus 5.9 mg/dL (2.5-4.9)
[2018-10-27 07:09] LABS: Potassium 5.7 mmol/L (3.5-5.1)
[2018-10-27] MEDS: PANTOPRAZOLE 40MG TABLET PO SCH (07:30)
[2018-10-27] MEDS: MYCOPHENOLATE MOFETIL 500 MG PO SCH ×2 (09:00→20:56)
[2018-10-27] MEDS: TAMSULOSIN 0.4 MG SR CAP PO SCH (09:00)
[2018-10-27] MEDS: FUROSEMIDE 40 MG TABLET PO SCH (09:00)
[2018-10-27] MEDS: MULTIVITAMINS,THERAPEUT 1 TAB PO SCH (09:00)
--- NOTE | 2018-10-27 09:43 | RAD REPORT ---
EXAM DESCRIPTION: CT - Abdomen Pelvis Wo Contrast - 10/27/2018 8:59 am CLINICAL HISTORY: Abdominal pain COMPARISON: 2017 TECHNIQUE: Computed axial tomography of the abdomen and pelvis was obtained. IV was not requested. O ral contrast was given. Coronal reconstructions performed. All CT scans are performed using dose optimization technique as appropriate and may include automated exposure control or mA/KV adjustment according to patient size. FINDINGS: The evaluation of solid organs and vessels is limited secondary to the lack of contrast a dministration. Small bilateral pleural effusions with mild to moderate bibasilar lung opacities The liver, spleen, pancreas, adrenals and kidneys appear grossly normal. The appendix is normal. Diverticula stem from the colon without evidence of diverticulitis. Prostate gland mildly enlarged IMPRESSION: Small bilateral pleural effusions with mild to moderate bibasilar lung opacities which m ay represent pneumonia or atelectasis No acute abnormality involving the abdomen.
[2018-10-27] MEDS: SOD FERRIC GLUC COMPLX/SUCROSE 125 MG in NA CHLORIDE 0.9% 100 ML IV SCH (09:44)
[2018-10-27 09:57] LABS: Blood Morphology Comment NOT SEEN (NOT SEEN); Platelet Estimate ADEQ; Urine White Blood Cell Casts OK
[2018-10-27] MEDS ORDERED: NS 0.9% VIAL 10 ML ONE (10:32)
[2018-10-27] MEDS ORDERED: FENTANYL CITR 100 MCG/2 ML ONE (10:32)
[2018-10-27] MEDS ORDERED: MIDAZOLAM HCL 2 MG/2 ML INJ ONE (10:32)
[2018-10-27] MEDS ORDERED: LIDOCAINE 2% MPF 5 ML VIAL ONE (10:32)
[2018-10-27] MEDS ORDERED: PROPOFOL 200 MG/20 ML VIAL IV ONE (10:32)
[2018-10-27] MEDS ORDERED: Phenylephrine HCl 10 MG/ML 1 ML VIAL ONE (10:32)
[2018-10-27] MEDS ORDERED: NS 0.9% VIAL 20 ML ONE (10:40)
[2018-10-27] MEDS ORDERED: NA CHLORIDE 0.9% 500 ML ONE (10:47)
[2018-10-27] MEDS ORDERED: NS 0.9% VIAL 30 ML ONE (10:51)
[2018-10-27] MEDS ORDERED: HEPARIN 5000 UNIT/ML 1 ML VIAL ONE (10:52)
[2018-10-27] MEDS ORDERED: CEFAZOLIN/SWI 1gm 1 GM/10 ML SYR ONE (11:01)
[2018-10-27] MEDS: LIDOCAINE 1% MPF 30 ML VIAL ONE ×2 (11:11→11:19)
--- NOTE | 2018-10-27 11:24 | P.OP ---
Preoperative diagnosis: ARF, Hyperkalemia Postoperative diagnosis: same Primary procedure: RIJ Dean Catheter, Fluoroscopy Anesthesia: MAC Estimated blood loss: min Specimen: none Findings: Normal Anatomy Complications: None Transferred to: Recovery Room Condition: Good
--- NOTE | 2018-10-27 11:54 | P.PN ---
Subjective Date of Service: 10/27/18 Pt with persistent coughing Bp border line K 5.7. Cr 4.9 , abd still distended Will start on HD today Abd is less distended ,Abd Ct: no obstruction off bactrim and DOLORES Cont IV iron 1 prbc during HD today will consider renal biopsy if no improving in RFt after HD I/o Physical Examination - Vital Signs Temperature: 97.9 F Blood Pressure: 99/48 Pulse: 90 Respirations: 20 Pulse Ox (%): 90 - Physical Exam General: Alert, Oriented x3, Mild distress HEENT: Atraumatic Neck: Supple, Without JVD or thyroid abnormality Respiratory: Crackles/rales Cardiovascular: Regular rate/rhythm, Normal S1 S2, Edema Gastrointestinal: Soft and benign, Distended - Studies Laboratory Data (last 24 hrs) 10/27/18 05:58: WBC 7.1, Hgb 7.9 L*, Hct 24.7 L, Plt Count 200 10/27/18 05:58: Sodium 138, Potassium 5.7 H*, BUN 60 H, Creatinine 4.89 H, Glucose 106, Phosphorus 5.9 H, Magnesium 2.1 10/26/18 19:12: Sodium 139, Potassium 5.4 H, BUN 55 H, Creatinine 4.20 H D, Glucose 143 H 10/26/18 17:08: Hgb 8.3 L, Hct 26.0 L Microbiology Data (last 24 hrs): 10/25/18 14:14 Clean Catch Urine [place] Count - Final <10,000 CFU/ML. 10/25/18 14:14 Clean Catch Urine - Final Assessment And Plan - Current Problems (Diagnosis) (1) Acute renal failure Onset Date: 11/09/17 Current Visit: No Status: Acute Qualifiers: Acute renal failure type: unspecified Qualified Code(s): N17.9 - Acute kidney failure, unspecified (2) Hyperkalemia Onset Date: 11/09/17 Current Visit: No Status: Acute - Plan Acute kidney injury on chronic kidney disease Cr baseline ~1.5 UA: many RPC, UPC 2.8 US; no hydro, echogenic kidneys uric acid 10, CK WNl F/U serology W/U F/U UPEP hyperkalemia off DOLORES and bactrim HD today Anemia Hx of gi bellding low iron stores on IV iron 1 PRBC during HD today 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
--- NOTE | 2018-10-27 11:54 | RAD REPORT ---
EXAM DESCRIPTION: RAD - Fluoroscopy <1 Hour - 10/27/2018 11:48 am CLINICAL HISTORY: Device placement central venous catheter placement FINDINGS: A central venous catheter was placed into the superior vena cava. Three fluoroscopic spot images are submitted. The examination was performed by Dr. Webster Fluoroscopy time 0.1 minute
--- NOTE | 2018-10-27 12:02 | RAD REPORT ---
EXAM DESCRIPTION: RAD - Chest Single View - 10/27/2018 11:53 am CLINICAL HISTORY: Device placement central venous line placement FINDINGS: A central venous line has been inserted with its tip in the distal superior vena cava. A pneumothorax is not seen
--- NOTE | 2018-10-27 12:34 | PN ---
The patient is having worsening of renal failure, so very likely patient's autoimmune nephritis is ge tting worse. The patient is scheduled to have dialysis as he is not improving. There is slight drop in hemoglobin; however, this may even be secondary to hemodilution, so his blood transfusion will be on hold until dialysis is done at which time it can be decided. The patient does not have any chest pain. He does have shortness of breath and wheezes and crackles in both lung [place] with pulmonary congestion. However, dialysis should be able to take care of the volume overload issue. TAYLER/BRIGIDA Voice ID: [id number] Report ID: [id number]
[2018-10-27] MEDS ORDERED: MIDODRINE HCL 5 MG TABLET PO PRN (15:16)
[2018-10-27] MEDS ORDERED: NA CHLORIDE 0.9% 250 ML ONE (15:20)
--- NOTE | 2018-10-27 15:50 | PREOPCON ---
Date of Consultation: 10/27/2018 Reason: The patient needs urgent dialysis. History Of Present Illness: The patient is a 73-year-old gentleman with multiple medical problems, p resented with hyperkalemia, acute renal failure. Requires urgent dialysis and I was consulted. The patient is awake, alert, no complaint. No chest pain. No fever or chills. Review of Systems: Otherwise unremarkable. Past Medical History: Significant for hypertension, prostate cancer, obstructive sleep apnea. Past Surgical History: Prostate surgery, cholecystectomy right hip surgery, previous right side Tesi o catheter placement for temporary dialysis. Allergies: NO ALLERGIES. Social History: Does not smoke. Drinks occasionally. Family History: Noncontributory. Physical Examination: Vital signs: Stable. He is afebrile. General: He is awake, alert, oriented x3. Head and neck: Cranial nerves 2 through 12 grossly within normal limits. No neck masses. No JVD. Throat clear. Neck is supple. Chest: Clear. Heart: S1, S2. Abdomen: Soft. Extremities: Neurovascularly intact. Neuro: Nonfocal. Laboratory Data: Shows his white count is 7.1. There is slight left shift. H and H are 7.9 and 24. 7, platelets are 200. His chemistry is significant for potassium 5.7. BUN is 60, creatinine is 4.89 , it has gotten worse since being admitted. Assessment: A 73-year-old male with multiple medical problems, with acute renal failure and hyperkal emia. Plan: I will go ahead and place a Dean catheter. The patient and family understand the risks, be nefits, alternatives, and agrees to proceed. /MODL Voice ID: [id number] Report ID: [id number]
--- NOTE | 2018-10-27 23:08 | OP ---
Date of Procedure: 10/27/2018 Surgeon: Dash Webster MD Preoperative Diagnoses: Acute renal failure with hyperkalemia. Postoperative Diagnoses: Acute renal failure with hyperkalemia. Procedures: Placement of right IJ Dean catheter. Interpretation of intraoperative fluoroscopy . Estimated Blood Loss: Minimal. Specimen: None. Findings: Normal anatomy. Anesthesia: MAC. Complications: None. Disposition: The patient tolerated the procedure in stable condition and taken to Recovery in good g eneral condition. Procedure In Detail: Patient was brought to the OR and placed in supine position. MAC anesthesia wa s begun. The patient was prepped and draped in the usual sterile fashion. Lidocaine 1% infiltrated locally in the right neck. An 18-gauge needle was used to access the right IJ vein. Guidewire was p assed. Position was confirmed with fluoroscopy and then Seldinger technique was used. Then, vein di lated and tip of the catheter placed under fluoroscopy in the SVC right atrial junction. Then, gayle ter flushed with heparin and packed with heparin with good blood flow. Then, 2-0 nylon used to secur e the tube to the skin and then sterile dressing was applied. The patient was awakened and taken to Recovery in good general condition. Chest x-ray has been ordered. /MODL Voice ID: [id number] Report ID: [id number]
[2018-10-28 06:40] LABS: Magnesium 2.1 mg/dL (1.8-2.4); Phosphorus 5.7 mg/dL (2.5-4.9); Potassium 4.6 mmol/L (3.5-5.1)
[2018-10-28] MEDS: FUROSEMIDE 40 MG TABLET PO SCH (07:42)
[2018-10-28 08:24] LABS: Absolute Lymphocytes (CBC) 0.2 K/uL (0.7-4.9); Absolute Monocytes 0.7 K/uL (0.1-1.3); Absolute Neutrophil 6.1 K/uL (1.8-8.0); Basophils % 1.4 % (0-1.3); Eosinophils % 1.8 % (0-4.4); Hematocrit 27.8 % (39.6-49.0); Lymphocytes % 2.6 % (15.3-44.8); RBC Red Blood Cell Count 3.04 M/uL (4.33-5.43)
[2018-10-28] MEDS: SOD FERRIC GLUC COMPLX/SUCROSE 125 MG in NA CHLORIDE 0.9% 100 ML IV SCH (08:35)
[2018-10-28] MEDS: MYCOPHENOLATE MOFETIL 500 MG PO SCH ×2 (08:36→21:00)
[2018-10-28] MEDS: TAMSULOSIN 0.4 MG SR CAP PO SCH (08:36)
[2018-10-28] MEDS: PANTOPRAZOLE 40MG TABLET PO SCH (08:36)
[2018-10-28] MEDS: MULTIVITAMINS,THERAPEUT 1 TAB PO SCH (08:36)
--- NOTE | 2018-10-28 10:26 | P.PN ---
Subjective Date of Service: 10/28/18 Primary Care Provider: Dr. Mccullough(I am covering for him this weekend) Subjective: Doing well Physical Examination - Vital Signs Temperature: 97.7 F Blood Pressure: 90/46 Pulse: 87 Respirations: 20 Pulse Ox (%): 90 - Physical Exam General: Alert, In no apparent distress, Oriented x3, Cooperative HEENT: Atraumatic Neck: Supple Respiratory: Clear to auscultation bilaterally, Normal air movement Cardiovascular: Normal pulses, Regular rate/rhythm Gastrointestinal: Normal bowel sounds, Soft and benign, Non-distended Neurological: Normal speech, Normal strength at 5/5 x4 extr, Normal tone, Normal affect - Studies Laboratory Data (last 24 hrs) 10/28/18 05:32: WBC 7.2, Hgb 8.9 L, Hct 27.8 L, Plt Count 205 10/28/18 05:32: Sodium 144, Potassium 4.6, BUN 44 H, Creatinine 4.52 H, Glucose 98, Phosphorus 5.7 H, Magnesium 2.1 Microbiology Data (last 24 hrs): 10/25/18 14:14 Clean Catch Urine [place] Count - Final <10,000 CFU/ML. 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 Will discontinue Lasix. Will discuss with nephrology further. Patient will continue with dialysis as directed. If the patient does not improved patient will require renal biopsy. If the patient requires further hemodialysis permanent catheter may need to be placed. Continue to monitor closely. Monitor lab closely. Patient continues on immunosuppressive therapy. Hyperkalemia secondary to acute on chronic renal disease now with end-stage renal disease: This has improved with dialysis. Anemia of chronic disease with history of bleeding from polyp status post treatment: Hemoglobin remained stable. Case discussed with PCP who I am covering. Patient with recent EGD and therapy for polyp. Will continue to monitor hemoglobin. Patient may require transfusion if hemoglobin below 7.5. Obstructive sleep apnea: Continue with CPAP at night Hypertension now with orthostatic hypotension: Discontinue blood pressure medication at this time. Will start midodrine 3 times a day to maintain blood pressure. Will discuss with nephrology. Will discontinue Lasix. BPH: Continue with medication. GERD: Will continue with medication. Time Spent Managing Pts Care (In Minutes): 55
[2018-10-28] MEDS: MIDODRINE HCL 5 MG TABLET PO SCH ×2 (13:13→21:21)
--- NOTE | 2018-10-28 14:04 | P.PN ---
Subjective Date of Service: 10/28/18 Primary Care Provider: Dr. 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 , supported with previous Hx and Active sediments, pt will likely require to start chemotherapy +/- plasmapharesis , wll need to be transferred for the reason above Physical Examination - Vital Signs Temperature: 97.9 F Blood Pressure: 107/53 Pulse: 82 Respirations: 18 Pulse Ox (%): 91 - Physical Exam General: Oriented x3, Mild distress HEENT: Atraumatic Neck: Supple, Without JVD or thyroid abnormality Respiratory: Normal air movement, Crackles/rales Cardiovascular: Regular rate/rhythm, Normal S1 S2, Other (upper extremity edema ), Edema - Studies Laboratory Data (last 24 hrs) 10/28/18 05:32: WBC 7.2, Hgb 8.9 L, Hct 27.8 L, Plt Count 205 10/28/18 05:32: Sodium 144, Potassium 4.6, BUN 44 H, Creatinine 4.52 H, Glucose 98, Phosphorus 5.7 H, Magnesium 2.1 Microbiology Data (last 24 hrs): 10/25/18 14:14 Clean Catch Urine [place] Count - Final <10,000 CFU/ML. 10/25/18 14:14 Clean Catch Urine - Final Medications List Reviewed: Yes Assessment And Plan - Current Problems (Diagnosis) (1) Acute renal failure Onset Date: 11/09/17 Current Visit: No Status: Acute Qualifiers: Acute renal failure type: unspecified Qualified Code(s): N17.9 - Acute kidney failure, unspecified (2) Hyperkalemia Onset Date: 11/09/17 Current Visit: No Status: Acute - Plan Acute kidney injury on chronic kidney disease Cr baseline ~1.5 likely due to RPGN UA: many RPC, UPC 2.8 US; no hydro, echogenic kidneys uric acid 10, CK WNl F/U serology W/U F/U UPEP will need to be transferred to initiate Chemotherapy +/- PLEX hyperkalemia off DOLORES and bactrim Corrected on dialysis Anemia Hx of gi bleeding low iron stores on IV iron S/p 2 PRBC 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
[2018-10-29 04:46] LABS: Absolute Lymphocytes (CBC) 0.2 K/uL (0.7-4.9); Absolute Monocytes 0.7 K/uL (0.1-1.3); Basophils % 0.2 % (0-1.3); Eosinophils % 2.2 % (0-4.4); Hematocrit 27.8 % (39.6-49.0); Lymphocytes % 2.7 % (15.3-44.8); MPV 8.4 fL (7.6-11.3); Monocytes % 7.8 % (3.3-12.3); RBC Red Blood Cell Count 3.02 M/uL (4.33-5.43)
[2018-10-29 05:17] LABS: Magnesium 2.1 mg/dL (1.8-2.4); Phosphorus 6.2 mg/dL (2.5-4.9); Potassium 4.3 mmol/L (3.5-5.1)
[2018-10-29] MEDS: MIDODRINE HCL 5 MG TABLET PO SCH ×3 (08:34→21:26)
[2018-10-29] MEDS: MULTIVITAMINS,THERAPEUT 1 TAB PO SCH (08:34)
[2018-10-29] MEDS: PANTOPRAZOLE 40MG TABLET PO SCH (08:34)
[2018-10-29] MEDS: MYCOPHENOLATE MOFETIL 500 MG PO SCH ×2 (08:35→21:00)
[2018-10-29] MEDS: SOD FERRIC GLUC COMPLX/SUCROSE 125 MG in NA CHLORIDE 0.9% 100 ML IV SCH (08:35)
--- NOTE | 2018-10-29 09:30 | P.PN ---
Subjective Date of Service: 10/29/18 Primary Care Provider: Dr. Mccullough(I am covering for him this weekend) Chief Complaint: Fatigue, Anemia, Worsening renal function Subjective: Doing well Physical Examination - Vital Signs Temperature: 99.2 F Blood Pressure: 106/55 Pulse: 76 Respirations: 20 Pulse Ox (%): 92 - Physical Exam General: Alert, In no apparent distress, Oriented x3, Cooperative HEENT: Atraumatic Neck: Supple Respiratory: Crackles/rales (Crackles to the bases. Patient on nasal cannula.) Cardiovascular: Normal pulses, Regular rate/rhythm Gastrointestinal: Normal bowel sounds, Soft and benign, Non-distended, No tenderness, No masses, No rebound, No guarding Musculoskeletal: No erythema, No tenderness, No warmth Integumentary: No tenderness/swelling Neurological: Normal speech, Normal strength at 5/5 x4 extr, Normal tone, Normal affect - Studies Laboratory Data (last 24 hrs) 10/29/18 04:24: WBC 9.1 D, Hgb 9.4 L, Hct 27.8 L, Plt Count 199 10/29/18 04:24: Sodium 141, Potassium 4.3, BUN 64 H D, Creatinine 5.80 H* D, Glucose 110 H, Phosphorus 6.2 H, Magnesium 2.1 Microbiology Data (last 24 hrs): 10/28/18 07:51 Sputum Gram Stain - Final Medications List Reviewed: Yes Assessment & Plan Discharge Plan: Transfer (to [facility]) Plan to discharge in: 24 Hours Physician Review Additional Text: Impression: Acute on chronic renal disease now with end-stage renal disease on dialysis with 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 Patient now likely with relapse of ANCA nephritis. Nephrology recommends transfer to higher level of care center for further investigation and likely initiation of chemo. Case discussed with hospitalist at [facility]. Patient has been accepted. Patient awaiting bed. Anticipate discharge soon. Patient will continue with hemodialysis. If patient does not tolerate hemodialysis patient may require continued venovenous dialysis. Will continue to monitor closely. Patient remains on nasal cannula. Patient stable at this time. Renal function remains compromised. Continue with Nephrology recommendations. Will follow along. I will turn the service over to Dr. Mccullough, who I am covering this weekend. I will go over the plan of care with him. Hyperkalemia secondary to acute on chronic renal disease now with end-stage renal disease: This has improved with dialysis. Continue with dialysis. Anemia of chronic disease with history of peptic ulcer disease with GERD status post recent treatment by GI: Hemoglobin has remained stable. Patient has received 2 units of blood during this hospitalization. Patient continues on IV iron. Continue with PPI. Maintain hemoglobin above 7.5. Obstructive sleep apnea: Continue with CPAP at night History of Hypertension now with orthostatic hypotension: Blood pressure medication discontinued. Patient now on midodrine 3 times a day to maintain blood pressure. Will continue monitor closely. BPH: Continue with medication. Time Spent Managing Pts Care (In Minutes): 55
--- NOTE | 2018-10-29 10:56 | RAD REPORT ---
EXAM DESCRIPTION: Clarisse Single View10/29/2018 10:42 am CLINICAL HISTORY: Shortness of breath COMPARISON: October 27 FINDINGS: Central venous catheter remains in place. . The heart is mildly to moderately enlarged Small bilateral pleural effusions. Old rib fractures Mild bibasilar lung opacities likely represent atelectasis or pneumonia. Additional bilateral interst itial lung opacities likely chronic
--- NOTE | 2018-10-29 11:01 | P.PN ---
Subjective Date of Service: 10/31/18 Primary Care Provider: Dr. 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 , supported with previous Hx and Active sediments, pt will likely require to start chemotherapy +/- plasmapharesis , pt was accepted at [facility] , waiting for bed will do HD today and tomorrow Physical Examination - Vital Signs Temperature: 99.2 F Blood Pressure: 106/55 Pulse: 76 Respirations: 20 Pulse Ox (%): 92 - Physical Exam General: Oriented x3, Mild distress HEENT: Atraumatic Neck: Supple, Without JVD or thyroid abnormality Respiratory: Crackles/rales Cardiovascular: No edema, Regular rate/rhythm, Normal S1 S2 Gastrointestinal: Soft and benign, Distended Integumentary: No rashes - Studies Laboratory Data (last 24 hrs) 10/29/18 04:24: WBC 9.1 D, Hgb 9.4 L, Hct 27.8 L, Plt Count 199 10/29/18 04:24: Sodium 141, Potassium 4.3, BUN 64 H D, Creatinine 5.80 H* D, Glucose 110 H, Phosphorus 6.2 H, Magnesium 2.1 Microbiology Data (last 24 hrs): 10/28/18 07:51 Sputum Gram Stain - Final Medications List Reviewed: Yes Assessment And Plan - Current Problems (Diagnosis) (1) Acute renal failure Onset Date: 11/09/17 Current Visit: No Status: Acute Qualifiers: Acute renal failure type: unspecified Qualified Code(s): N17.9 - Acute kidney failure, unspecified (2) Hyperkalemia Onset Date: 11/09/17 Current Visit: No Status: Acute - Plan Acute kidney injury on chronic kidney disease Cr baseline ~1.5 likely due to RPGN started on HD due to rapidly increasing cr, oliguria and fluid overload and hyperkalemia UA: many RPC, UPC 2.8 US; no hydro, echogenic kidneys uric acid 10, CK WNl F/U serology W/U F/U UPEP accepted at [facility], waiting for bed hyperkalemia off DOLORES and bactrim Corrected on dialysis Anemia Hx of gi bleeding Hb stable for now low iron stores on IV iron S/p 2 PRBC 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
[2018-10-29 19:13] LABS: HIV AG/AB 4TH GEN Non-reactive (Non-reactive)
[2018-10-30 01:54] LABS: Anti-Cardiolipin IgA Antibody <11 APL (<=11)
[2018-10-30 06:11] LABS: Absolute Lymphocytes (CBC) 0.3 K/uL (0.7-4.9); Absolute Monocytes 0.8 K/uL (0.1-1.3); Absolute Neutrophil 10.7 K/uL (1.8-8.0); Basophils % 0.2 % (0-1.3); Eosinophils % 0.8 % (0-4.4); Hematocrit 30.5 % (39.6-49.0); Lymphocytes % 2.3 % (15.3-44.8); MPV 8.4 fL (7.6-11.3); RBC Red Blood Cell Count 3.34 M/uL (4.33-5.43)
[2018-10-30 06:31] LABS: Albumin 2.1 g/dL (3.4-5.0); Magnesium 2.1 mg/dL (1.8-2.4); Phosphorus 6.5 mg/dL (2.5-4.9); Potassium 4.5 mmol/L (3.5-5.1)
--- NOTE | 2018-10-30 08:46 | RAD REPORT ---
EXAM DESCRIPTION: RAD - Chest Single View - 10/30/2018 8:05 am CLINICAL HISTORY: Hypoxia, dyspnea COMPARISON: October 29 TECHNIQUE: AP portable chest image was obtained 0801 hours . FINDINGS: Motion degradation is present. Right-sided vascular access catheter in place with tip at t he SVC atrial junction. Interstitial and alveolar opacities are present fractionally improved in the right base is generally stable from prior day imaging. No progressive process. Cardiac silhouette remains enlarged. Vasculatu re is mildly prominent. No pneumothorax or enlarging pleural effusion. No acute bony abnormality seen . No acute aortic findings suspected. IMPRESSION: Minimal improvement in the right lung base. Bilateral interstitial and alveolar opacitie s are otherwise stable from prior day imaging.
[2018-10-30] MEDS: MYCOPHENOLATE MOFETIL 500 MG PO SCH ×2 (09:00→20:18)
[2018-10-30] MEDS: SOD FERRIC GLUC COMPLX/SUCROSE 125 MG in NA CHLORIDE 0.9% 100 ML IV SCH (10:02)
[2018-10-30] MEDS: MULTIVITAMINS,THERAPEUT 1 TAB PO SCH (10:02)
[2018-10-30] MEDS: PANTOPRAZOLE 40MG TABLET PO SCH (10:02)
[2018-10-30] MEDS: MIDODRINE HCL 5 MG TABLET PO SCH ×3 (10:02→20:18)
--- NOTE | 2018-10-30 15:30 | PN ---
Date of Progress Note: 10/30/2018 Subjective: The patient admitted with symptomatic anemia, acute kidney injury required dialysis. Physical Examination: Vital Signs: Blood pressure 97/47, pulse ox 95. Chest: Crackles bilateral. Heart: S1, S2 regular. Abdomen: Soft, nontender. Extremity: No edema. Laboratory Data: WBC 12, H and H 9.8/30.5, platelets of 224. Sodium 137, potassium 4.5, bicarb 28, BUN 50, creatinine 4.9, calcium 8.5, phosphorus 6.5, albumin 2.1. Serology still pending. PC ratio 2.8. Complement C3, C4 within normal limits. Anticardiolipin been negative. ELKE is still pending. Anti-DNA is still pending. ANCA still pending. HIV was negative. Hepatitis panel still pending. Current Medications: Current medications the patient on include; heparin, IV iron, pantoprazole, Judy lCept 500 b.i.d., multivitamin. Assessment And Plan: 1.Acute kidney injury on chronic kidney disease, mostly secondary to vasculitis, questionable lupus induced/full-house autoimmune. Given the worsening kidney function, the patient going to go ahead wa [facility] for transfer for higher level of care for chemotherapy and pulse steroid for the time being. I am going to arrange for kidney biopsy for the patient as the patient waiting for the transfer. We w ill follow up with serology and plan after obtaining the kidney biopsy to start the patient on Solu-M edrol. Continue dialysis today. 2.Hypertension, currently blood pressure been on the lower side, hold all blood pressure medications . 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 As I mentioned, I am going to start the patient on pulse steroid, we will proceed with the biopsy and we will follow u p. 4.Anemia, possible secondary to autoimmune disease and intravascular hemolysis has been ruled out. We will follow up with primary. The patient had iron deficiency anemia as I mentioned, status post t ransfusion. I will continue IV iron and I am going to start the patient on Epogen. MISSAEL Voice ID: [id number] Report ID: [id number]
--- NOTE | 2018-10-30 15:49 | RAD REPORT ---
EXAM DESCRIPTION: CT - Head Brain Wo Cont - 10/30/2018 3:36 pm CLINICAL HISTORY: visual disturbances Headache, drowsiness COMPARISON: <Comparisons> TECHNIQUE: All CT scans are performed using dose optimization technique as appropriate and may inclu de automated exposure control or mA/KV adjustment according to patient size. FINDINGS: No intracranial hemorrhage, hydrocephalus or extra-axial fluid collection.Mild brain atrop hy.No areas of brain edema or evidence of midline shift. The paranasal sinuses and mastoids are clear. The calvarium is intact. Left vertebral artery is ather osclerotic. IMPRESSION: No acute intracranial abnormality.
[2018-10-30 20:30] LABS: Albumin, (SPE) 2.4 g/dL (3.8-4.8); Alpha-1-Globulins 0.6 g/dL (0.2-0.3); Alpha-2-Globulins 0.9 g/dL (0.5-0.9); Gamma Globulins 0.7 g/dL (0.8-1.7); INTERPRETATION REPORT
[2018-10-31 04:52] LABS: RBC Red Blood Cell Count 3.46 M/uL (4.33-5.43)
[2018-10-31 04:53] LABS: Absolute Lymphocytes (CBC) 0.2 K/uL (0.7-4.9); Absolute Monocytes 0.8 K/uL (0.1-1.3); Absolute Neutrophil 7.9 K/uL (1.8-8.0); Basophils % 0.3 % (0-1.3); Eosinophils % 0.8 % (0-4.4); Hematocrit 31.6 % (39.6-49.0); Lymphocytes % 2.5 % (15.3-44.8); MPV 8.4 fL (7.6-11.3); Monocytes % 8.6 % (3.3-12.3)
[2018-10-31 04:58] LABS: Protime INR 1.14
[2018-10-31 05:11] LABS: Potassium 4.2 mmol/L (3.5-5.1)
[2018-10-31 05:28] LABS: Anisocytosis SLIGHT; Blood Morphology Comment NOTED (NOT SEEN); Platelet Estimate ADEQ
[2018-10-31 06:11] LABS: HBsAG Nonreactive (Nonreactive)
[2018-10-31] MEDS: MYCOPHENOLATE MOFETIL 500 MG PO SCH (08:23)
[2018-10-31] MEDS: MULTIVITAMINS,THERAPEUT 1 TAB PO SCH (08:23)
[2018-10-31] MEDS: PANTOPRAZOLE 40MG TABLET PO SCH (08:23)
[2018-10-31] MEDS: MIDODRINE HCL 5 MG TABLET PO SCH ×3 (08:23→21:00)
[2018-10-31] MEDS: SOD FERRIC GLUC COMPLX/SUCROSE 125 MG in NA CHLORIDE 0.9% 100 ML IV SCH (08:29)
[2018-10-31] MEDS ORDERED: MIDAZOLAM HCL 2 MG/2 ML INJ ONE (10:44)
[2018-10-31] MEDS ORDERED: NALOXONE 0.4 MG/ML VIAL ONE (10:45)
[2018-10-31] MEDS ORDERED: FENTANYL CITR 100 MCG/2 ML ONE (10:45)
[2018-10-31] MEDS ORDERED: FLUMAZENIL 0.1 MG/ML (5 mL VIAL) IV ONE (10:45)
[2018-10-31] MEDS ORDERED: NA CHLORIDE 0.9% 0 ML ONE (10:46)
[2018-10-31] MEDS: NEPRO SHAKE 237 ML CAN PO SCH (11:20)
[2018-10-31] MEDS ORDERED: METHYLPRED NA SUC 1,000 MG in NA CHLORIDE 0.9% 100 ML IV ONE (12:51)
[2018-10-31] MEDS: METHYLPRED NA SUC 1,000 MG in NA CHLORIDE 0.9% 100 ML IV SCH (14:00)
[2018-10-31 15:04] LABS: Hepatitis C Virus RNA (PCR)log <1.18 log IU/mL
[2018-10-31 17:01] LABS: Scleroderma Antibody (Scl-70) <1.0 AI (<1.0)
--- NOTE | 2018-10-31 19:07 | PN ---
Date of Progress Note: 10/31/2018 Subjective: We could not do kidney biopsy as the patient's blood pressure was on the lower side. Th e patient started having some hallucination. Physical Examination: Vital Signs: Blood pressure 96/51, pulse of 76. Chest: Crackles bilateral. Heart: S1, S2. Systolic murmur. Abdomen: Soft and nontender. Extremity: No edema. Laboratory Data: WBC 9, H and H 10.3/31.6, platelet 231, lymphocyte only 6. Sodium 136, potassium 4. 2, bicarb 29, BUN 46, creatinine 4.8, GFR of 12, calcium 8.6, phosphorus 6.2, magnesium 2.1. Serolog y still pending. C3-C4 within normal limit. Hepatitis was negative. Cryo still pending. Current Medications: Include midodrine 5 mg t.i.d., IV iron, Epogen, pantoprazole. Assessment And Plan: 1.Acute kidney injury on chronic kidney disease, possible autoimmune disease given the previous back ground of full house kidney biopsy. Given the lung finding, I am going to go ahead and continue with the daily dialysis, and I am going to start the patient on Solu-Medrol. We will resume midodrine. Hopefully, tomorrow patient's clinical condition be better to be able to do the biopsy. 2.Hypertension, currently hypotension. Continue midodrine. 3.Anemia of chronic kidney disease/GI loss, started on IV iron. Continue Epogen. Follow up with GI . 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 The patient on Solu-Medrol. The patient waiting for transfer to higher level of care. We will proceed with the biopsy if the patient is more stable. RODOLFO/BRIGIDA Voice ID: [id number] Report ID: [id number]
[2018-10-31 19:28] LABS: P-ANCA Anti-Myeloperoxidase Ab <1.0 AI (<1.0)
[2018-10-31] MEDS: Mycophenolate Mofetil 500 MG PO SCH (20:59)
[2018-10-31] MEDS: ALPRAZOLAM 0.5 MG TABLET PO PRN (23:09)
--- NOTE | 2018-11-01 02:08 | PN ---
The patient is doing okay. He had dialysis scheduled today. The patient still in the process of pro ng transferred to [facility], however, because of the bed situation, it has not been successful . This was explained to the family today. TAYLER/BRIGIDA Voice ID: [id number] Report ID: [id number]
[2018-11-01] MEDS: Mycophenolate Mofetil 500 MG PO SCH ×2 (08:50→21:02)
[2018-11-01] MEDS: SOD FERRIC GLUC COMPLX/SUCROSE 125 MG in NA CHLORIDE 0.9% 100 ML IV SCH (08:51)
[2018-11-01] MEDS: NEPRO SHAKE 237 ML CAN PO SCH (08:51)
[2018-11-01] MEDS: MIDODRINE HCL 5 MG TABLET PO SCH ×3 (08:51→21:02)
[2018-11-01] MEDS: MULTIVITAMINS,THERAPEUT 1 TAB PO SCH (08:52)
[2018-11-01] MEDS: PANTOPRAZOLE 40MG TABLET PO SCH (08:54)
[2018-11-01] MEDS ORDERED: VANCOMYCIN 1GM/D5W 1 GM/200 ML BAG IVPB SCH (11:00)
[2018-11-01] MEDS: PIPER/TAZO/NS 2.25gm 2.25 GM/50 ML BAG IVPB SCH ×2 (11:30→16:45)
[2018-11-01] MEDS ORDERED: ALBUMIN HUMAN 25% 50 ML IV SCH (12:00)
[2018-11-01] MEDS ORDERED: METHYLPRED NA SUC 1,000 MG in NA CHLORIDE 0.9% 100 ML IV SCH (13:00)
--- NOTE | 2018-11-01 13:42 | RAD REPORT ---
EXAM DESCRIPTION: CT - Thorax Wo Con - 11/01/2018 1:29 pm CLINICAL HISTORY: sob COMPARISON: November 2017 CT scan TECHNIQUE: Computed axial tomography of the chest was obtained. Contrast was not requested. All CT scans are performed using dose optimization technique as appropriate and may include automated exposure control or mA/KV adjustment according to patient size. FINDINGS: The evaluation of mediastinum, karen and vessels is limited secondary to lack of IV contras t administration. Small bilateral pleural effusions are present. Bibasilar lung opacities likely represent atelectasis. Mild interstitial pulmonary edema. The heart remains enlarged IMPRESSION: Mild CHF. Small bilateral pleural effusions
[2018-11-01] MEDS: METHYLPRED NA SUC 1,000 MG in NA CHLORIDE 0.9% 100 ML IV SCH (14:51)
--- NOTE | 2018-11-01 15:14 | PN ---
Date of Progress Note: 11/01/2018 Subjective: The patient was admitted with symptomatic anemia, found to have acute kidney injury with possible autoimmune disease. Unfortunately, we could not do kidney biopsy. 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 The patient had flores rtness of breath for the last few days. Physical Examination: Vital Signs: Blood pressure 107/53, pulse of 85, afebrile. The patient still had good urine output of 600. Chest: Crackles bilateral. Heart: S1 and S2, systolic murmur. Abdomen: Soft and nontender. Extremities: Trace edema. Laboratory Data: WBC 9, H and H 10.3/31.6, platelet 231. Sodium 136, potassium 4.2, bicarb 29, BUN 46, creatinine 4.8, GFR of 12, calcium 8.6, phosphorus 6.5, magnesium 2.1, albumin 2.1. SPEP, no M-s pike has been detected. The patient's ELKE is being negative. ANCA was negative. Anti-DNA was negat rupinder. Anti-glomerular basement membrane was negative. Anticardiolipin was negative. Hepatitis panel was negative. Current Medications: The patient on its include midodrine 5 mg t.i.d., IV iron, Epogen. Alprazolam, pantoprazole, the patient was started on Solu-Medrol 1 g for 3 doses, Cellcept, multivitamin. CT he ad was negative. Chest x-ray that was done on the showing cardiomegaly with congestion. 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 The patient still requiring daily dialysis to establish better volume control. We still unfortunately could not get the kidney biopsy giving the respiratory distress that the [facility] ie has for that reason. I am going to challenge the patient again today and we will see hopefully after dialysis we will attempt another attempt of kidney biopsy and we will follow up. Currently blo od pressure better, stay stable, and better control. 2.Respiratory distress, possible over volume to rule out infectious process. I am going to go ahead and send for procalcitonin. We will send for culture and I will start the patient on vancomycin and Zosyn. We will get CT chest to evaluate if there is any infiltration was not seen or being overseen because of the over volume. Given the activity of the disease, we will consult Pulmonary. 3.Hypertension, currently hypotension. Continue midodrine. Keep holding all blood pressure medicat ion. The patient had workup with GI. Currently conservative treatment. Continue Epogen for the ashlee e being. 4.Autoimmune disease, pulmonary renal syndrome/cardiorenal. Continue current dialysis. Continue So tami-Medrol. We will get CT chest and we will get pulmonary involved. RODOLFO/BRIGIDA Voice ID: [id number] Report ID: [id number]
[2018-11-01 19:51] LABS: Albumin, (SPE) 3.6 g/dL (3.8-4.8); Alpha-1-Globulins 0.3 g/dL (0.2-0.3); Alpha-2-Globulins 0.6 g/dL (0.5-0.9); Gamma Globulins 1.2 g/dL (0.8-1.7); INTERPRETATION REPORT
[2018-11-01] MEDS: ALPRAZOLAM 0.5 MG TABLET PO PRN (21:01)
[2018-11-01 23:37] LABS: Vitamin D 1,25-Dihydroxy Total 22 pg/mL (18-72); Vitamin D,1,25-OH2, D2 <8 pg/mL
[2018-11-02] MEDS: PIPER/TAZO/NS 2.25gm 2.25 GM/50 ML BAG IVPB SCH ×3 (00:09→16:05)
[2018-11-02] MEDS: PANTOPRAZOLE 40MG TABLET PO SCH (07:30)
[2018-11-02] MEDS: NEPRO SHAKE 237 ML CAN PO SCH (08:02)
[2018-11-02] MEDS: Mycophenolate Mofetil 500 MG PO SCH (08:02)
[2018-11-02] MEDS: MULTIVITAMINS,THERAPEUT 1 TAB PO SCH (08:02)
[2018-11-02] MEDS: MIDODRINE HCL 5 MG TABLET PO SCH ×3 (08:59→21:16)
[2018-11-02] MEDS: SOD FERRIC GLUC COMPLX/SUCROSE 125 MG in NA CHLORIDE 0.9% 100 ML IV SCH (09:24)
[2018-11-02 09:36] LABS: Absolute Lymphocytes (CBC) 0.1 K/uL (0.7-4.9); Absolute Monocytes 0.5 K/uL (0.1-1.3); Absolute Neutrophil 7.1 K/uL (1.8-8.0); Basophils % 0.2 % (0-1.3); Hematocrit 32.9 % (39.6-49.0); Lymphocytes % 1.1 % (15.3-44.8); MPV 8.5 fL (7.6-11.3); Monocytes % 6.3 % (3.3-12.3); RBC Red Blood Cell Count 3.52 M/uL (4.33-5.43)
[2018-11-02 09:46] LABS: Potassium 4.4 mmol/L (3.5-5.1)
[2018-11-02] MEDS: EPOETIN ALFA 10,000 UNIT/ML VIAL IV SCH (11:39)
--- NOTE | 2018-11-02 14:47 | P.CNS ---
Date of Consult: 11/02/18 Primary Care Provider: Dr. 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 he became sick started complaining of lower extremity edema abdominal distension cough prior to that he was very active for admitted to the hospital he has been here for approximately a week with acute renal failure these currently on dialysis sputum shows Haemophilus influenzae he is treated for possibly autoimmune renal dysfunction patient has never smoked history of sleep apnea currently a hypoxic patient is on vancomycin Zosyn and high dose of pulse steroids history obtained from daughters Allergies No Known Allergies Allergy (Verified 10/15/15 13:32) Home Medications: Tamsulosin HCl [Flomax] 0.4 mg PO DAILY 10/15/15 Folic Acid/Vit B Complex and C [Dialyvite 800 Chewable Wafer] 1 tab PO DAILY Furosemide [Lasix] 80 mg PO DAILY 10/25/18 Lisinopril [Prinivil] 5 mg PO DAILY 10/25/18 Mycophenolate Mofetil 500 mg PO BID 10/25/18 Pantoprazole [Protonix Tab] 40 mg PO DAILY 10/25/18 Smz./Tmp. [Bactrim Ds 800 MG/160 MG*] 1 tab PO DAILY 10/25/18 - Past Medical/Surgical History Diabetic: No -: Hypertension -: Benign prostatic hypertrophy -: gout -: prostate CA -: [place] -: R hip sx with pins -: prostate surgery - Family History Mother Medical History: Heart disease, Diabetes Brother Medical History: Hypertension, Diabetes Sister Medical History: Hypertension, Cancer - Social History Alcohol use: Yes CD- Drugs: No Caffeine use: No Place of Residence: Home Review of Systems 10-point ROS is otherwise unremarkable General: Weakness, Malaise Respiratory: Cough, Shortness of Breath Physical Examination Temp Pulse Resp BP Pulse Ox 97.7 F 98 H 18 112/49 L 95 11/02/18 07:40 11/02/18 07:40 11/02/18 07:40 11/02/18 07:40 11/02/18 07:40 General: Alert, In no apparent distress, Oriented x3 HEENT: Atraumatic Neck: Supple Respiratory: Clear to auscultation bilaterally, Diminished Cardiovascular: No edema, Regular rate/rhythm, Normal S1 S2 Gastrointestinal: Normal bowel sounds, Soft and benign Laboratory Data (last 24 hrs) 11/02/18 09:11: WBC 7.7 D, Hgb 10.4 L, Hct 32.9 L, Plt Count 303 D 11/02/18 09:11: Sodium 139, Potassium 4.4, BUN 52 H, Creatinine 5.56 H*, Glucose 159 H - Problems (1) Respiratory failure with hypoxia Onset Date: 10/23/15 Current Visit: No Status: Resolved Plan: Patient is 73 years of age admitted with acute renal failure is now hypoxic chest x-ray shows diffuse bilateral consolidation patient is mildly anemic white count normal sputum cultures showed him Haemophilus influenzae blood pressure stable is currently on 15 L off oxygen Haemophilus since the influenza sensitive to cephalosporins patient to use his CPAP the probably has ARDS from an infection Qualifiers: Chronicity: acute on chronic Qualified Code(s): J96.21 - Acute and chronic respiratory failure with hypoxia
[2018-11-02] MEDS: METHYLPRED NA SUC 1,000 MG in NA CHLORIDE 0.9% 100 ML IV SCH (15:10)
[2018-11-02 19:26] LABS: Arterial Blood Carboxyhemoglob 1.2 % (0-1.5); Blood Gas Oxyhemoglobin 93.4 % (94-97); Blood O2 Saturation 95.3 % (92-98.5)
--- NOTE | 2018-11-02 20:09 | PN ---
Date of Progress Note: 11/02/2018 Subjective: The patient doing the same, still has shortness of breath, still on nonrebreather. Physical Examination: Vital Signs: Blood pressure 112/49, pulse of 98. Chest: Crackles bilateral. Heart: S1, S2. Systolic murmur. Abdomen: Soft, nontender. Extremities: No edema. Laboratory Data: H and H 10.4/32.9, sodium 139, potassium 4.4, bicarb 28, BUN 52, creatinine 5.5, ca lcium 8.8. Current Medications: Current medications the patient on include: Vancomycin, zosyn, midodrine 5 t.i .d., Epogen, pantoprazole, multivitamin, Solu-Medrol 1 g. 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 We will continue daily dialysis. 2.Hypertension, currently hypotension. Continue midodrine for support. 3.Over volume. We will do sequential today. 4.Respiratory failure, secondary to over volume/questionable pneumonia/interstitial infiltration, po ssible edema giving the immunosuppressive condition of the patient. We will consider ID evaluation a nd Pulmonary. We will continue daily dialysis. Continue antibiotic. The patient should receive van comycin also today. 5.Anemia of chronic kidney disease. Continue Epogen. 6.Nephritis as above. Could not do biopsy yet given the condition of the patient. RODOLFO/BRIGIDA Voice ID: [id number] Report ID: [id number]
[2018-11-02 21:19] LABS: Arterial Blood Carboxyhemoglob 1.3 % (0-1.5); Blood Gas Oxyhemoglobin 86.9 % (94-97); Blood O2 Saturation 88.8 % (92-98.5)
[2018-11-02] MEDS: VANCOMYCIN 500 MG in NA CHLORIDE 0.9% 100 ML IVPB SCH (23:12)
[2018-11-02] MEDS ORDERED: VANCOMYCIN 500 MG/VIAL ONE (23:15)
[2018-11-02] MEDS ORDERED: NA CHLORIDE 0.9% 100 ML IV ONE (23:17)
[2018-11-03] MEDS: PIPER/TAZO/NS 2.25gm 2.25 GM/50 ML BAG IVPB SCH ×2 (00:22→10:33)
[2018-11-03] MEDS: MULTIVITAMINS,THERAPEUT 1 TAB PO SCH (10:09)
[2018-11-03] MEDS: MIDODRINE HCL 5 MG TABLET PO SCH ×3 (10:09→21:03)
[2018-11-03] MEDS: NEPRO SHAKE 237 ML CAN PO SCH ×2 (10:09→21:03)
[2018-11-03] MEDS: PANTOPRAZOLE 40MG TABLET PO SCH (10:09)
[2018-11-03] MEDS: ARFORMOTEROL TARTRATE 15 MCG/2 ML VIAL.NEB NEB SCH ×2 (11:52→20:00)
--- NOTE | 2018-11-03 11:52 | P.PN ---
Subjective Date of Service: 11/03/18 Primary Care Provider: Dr. Mccullough(I am covering for him this weekend) Chief Complaint: Respiratory failure Subjective: Improving (Patient is doing much better today he is very alert responsive cooperative use BiPAP last night) Review of Systems General: Weakness Respiratory: Shortness of Breath Physical Examination - Vital Signs Temperature: 97.8 F Blood Pressure: 100/46 Pulse: 61 Respirations: 20 Pulse Ox (%): 96 - Physical Exam General: Alert, Oriented x3 Neck: Supple Respiratory: Clear to auscultation bilaterally, Diminished Cardiovascular: No edema, Regular rate/rhythm - Studies Medications List Reviewed: Yes Assessment & Plan - Problems (Diagnosis) (1) Respiratory failure with hypoxia Onset Date: 10/23/15 Current Visit: No Status: Resolved Plan: Patient is doing much better to continue using BiPAP or his CPAP bilateral infiltrates most likely pneumonia patient is immunosuppressed with a mycophenolate. 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 Patient now likely with relapse of ANCA nephritis. Nephrology recommends transfer to higher level of care center for further investigation and likely initiation of chemo. Case discussed with hospitalist at [facility]. Patient has been accepted. Patient awaiting bed. Anticipate discharge soon. Patient will continue with hemodialysis. If patient does not tolerate hemodialysis patient may require continued venovenous dialysis. Will continue to monitor closely. Patient remains on nasal cannula. Patient stable at this time. Renal function remains compromised. Continue with Nephrology recommendations. Will follow along. I will turn the service over to Dr. Mccullough, who I am covering this weekend. I will go over the plan of care with him. Hyperkalemia secondary to acute on chronic renal disease now with end-stage renal disease: This has improved with dialysis. Continue with dialysis. Anemia of chronic disease with history of peptic ulcer disease with GERD status post recent treatment by GI: Hemoglobin has remained stable. Patient has received 2 units of blood during this hospitalization. Patient continues on IV iron. Continue with PPI. Maintain hemoglobin above 7.5. Obstructive sleep apnea: Continue with CPAP at night History of Hypertension now with orthostatic hypotension: Blood pressure medication discontinued. Patient now on midodrine 3 times a day to maintain blood pressure. Will continue monitor closely. BPH: Continue with medication.
--- NOTE | 2018-11-03 12:58 | P.PN ---
Subjective Date of Service: 11/03/18 Primary Care Provider: Dr. 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 , started on HD pt stated he is improving and was able to walk for few steps for first time since admission daily HD BP borderline Cont Abx , monitor Vanco level serology W/U including ANCA, Complements were -ve waiting for bed at [facility] Physical Examination - Vital Signs Temperature: 97.2 F Blood Pressure: 98/45 Pulse: 61 Respirations: 18 Pulse Ox (%): 97 - Physical Exam General: Oriented x3, Mild distress HEENT: Atraumatic Neck: Supple, Without JVD or thyroid abnormality Respiratory: Clear to auscultation bilaterally, Normal air movement Cardiovascular: No edema, Regular rate/rhythm, Normal S1 S2, No gallops, No rubs , No murmurs Gastrointestinal: Soft and benign, Distended - Studies Medications List Reviewed: Yes Assessment And Plan - Current Problems (Diagnosis) (1) Acute renal failure Onset Date: 11/09/17 Current Visit: No Status: Acute Qualifiers: Acute renal failure type: unspecified Qualified Code(s): N17.9 - Acute kidney failure, unspecified (2) Hyperkalemia Onset Date: 11/09/17 Current Visit: No Status: Acute - Plan Acute kidney injury on chronic kidney disease Cr baseline ~1.5 likely due to RPGN started on HD due to rapidly increasing cr, oliguria and fluid overload and hyperkalemia UA: many RPC, UPC 2.8 serology W/u -ve hyperkalemia on dialysis now Anemia Hx of gi bleeding Hb stable for now completed IV iron H/H stable now FOBT -ve Hx of ANCA-induced vacuities pt is unstable for biopsy ANCA -ve this admission Abd distension Abd CT; no obstruction Asymptomatic
[2018-11-03] MEDS ORDERED: MANNITOL 25% 12.5 GM/50 ML VIAL IV PRN (15:12)
[2018-11-03] MEDS ORDERED: NA CHLORIDE 0.9% 1,000 ML IV PRN (15:12)
[2018-11-03] MEDS: EPOETIN ALFA 10,000 UNIT/ML VIAL IV SCH (15:33)
[2018-11-03] MEDS: VANCOMYCIN 500 MG in NA CHLORIDE 0.9% 100 ML IVPB SCH (16:55)
[2018-11-03] MEDS: CEFTRIAXONE/SWI 1gm 1 GM/10 ML SYR IV SCH (18:27)
--- NOTE | 2018-11-03 18:46 | PN ---
Subjective: The patient generally is doing better. His pulmonary congestion is better. The patient does not have any color to the expectoration. The patient is due for dialysis today. The transfer process still in progress, however, it has not been successful due to lack of beds. The patient will be continued on the same management plan. TAYLER/BRIGIDA Voice ID: [id number] Report ID: [id number]
[2018-11-04] MEDS: ARFORMOTEROL TARTRATE 15 MCG/2 ML VIAL.NEB NEB SCH ×2 (08:06→20:00)
[2018-11-04] MEDS: MULTIVITAMINS,THERAPEUT 1 TAB PO SCH (08:45)
[2018-11-04] MEDS: MIDODRINE HCL 5 MG TABLET PO SCH ×3 (08:45→20:55)
[2018-11-04] MEDS: PANTOPRAZOLE 40MG TABLET PO SCH (08:45)
[2018-11-04] MEDS: NEPRO SHAKE 237 ML CAN PO SCH ×2 (08:46→22:40)
[2018-11-04] MEDS ORDERED: CEFTRIAXONE 1 GM/NS 50 ML 1 GM/50 ML BAG IV SCH (09:00)
--- NOTE | 2018-11-04 10:15 | P.PN ---
Subjective Date of Service: 11/04/18 Primary Care Provider: Dr. Mccullough(I am covering for him this weekend) Chief Complaint: Respiratory failure Subjective: Improving (Patient is doing well he is eating drinking off BiPAP saturating well on 2 L nasal cannula oxygen more alert responsive) Review of Systems General: Weakness Respiratory: Shortness of Breath Physical Examination - Vital Signs Temperature: 97.7 F Blood Pressure: 110/56 Pulse: 55 Respirations: 20 Pulse Ox (%): 95 - Physical Exam General: Alert, Cooperative Respiratory: Clear to auscultation bilaterally, Diminished - Studies Medications List Reviewed: Yes Assessment & Plan - Problems (Diagnosis) (1) Respiratory failure with hypoxia Onset Date: 10/23/15 Current Visit: No Status: Resolved Plan: Patient admitted with respiratory failure bilateral pneumonia continue with Rocephin he is improving and responding on dialysis lab work ordered patient scheduled to be transferred to [place] he is stable sputum cultures Haemophilus influenzae vital signs stable oxygenation satisfactory patient encouraged to use his own CPAP continue with bronchodilators Dc vancomycin Qualifiers: Chronicity: acute on chronic Qualified Code(s): J96.21 - Acute and chronic respiratory failure with hypoxia Physician Review Additional Text: Impression: Acute on chronic renal disease now with end-stage renal disease on dialysis with 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 Patient now likely with relapse of ANCA nephritis. Nephrology recommends transfer to higher level of care center for further investigation and likely initiation of chemo. Case discussed with hospitalist at [facility]. Patient has been accepted. Patient awaiting bed. Anticipate discharge soon. Patient will continue with hemodialysis. If patient does not tolerate hemodialysis patient may require continued venovenous dialysis. Will continue to monitor closely. Patient remains on nasal cannula. Patient stable at this time. Renal function remains compromised. Continue with Nephrology recommendations. Will follow along. I will turn the service over to Dr. Mccullough, who I am covering this weekend. I will go over the plan of care with him. Hyperkalemia secondary to acute on chronic renal disease now with end-stage renal disease: This has improved with dialysis. Continue with dialysis. Anemia of chronic disease with history of peptic ulcer disease with GERD status post recent treatment by GI: Hemoglobin has remained stable. Patient has received 2 units of blood during this hospitalization. Patient continues on IV iron. Continue with PPI. Maintain hemoglobin above 7.5. Obstructive sleep apnea: Continue with CPAP at night History of Hypertension now with orthostatic hypotension: Blood pressure medication discontinued. Patient now on midodrine 3 times a day to maintain blood pressure. Will continue monitor closely. BPH: Continue with medication.
[2018-11-04 11:22] LABS: Potassium 3.2 mmol/L (3.5-5.1)
[2018-11-04 11:23] LABS: Albumin 2.8 g/dL (3.4-5.0); Bilirubin Total 0.3 mg/dL (0.2-1.0); Protein, Total 6.5 g/dL (6.4-8.2)
--- NOTE | 2018-11-04 15:02 | PN ---
Date of Progress Note: 11/04/2018 Subjective: The patient was admitted with symptomatic anemia, status post EGD, then had acute kidney injury with active urine sediment. Serology was negative. The patient developed Oliguric state fur ther with over volume. For that reason, the patient was started on dialysis. Physical Examination: Vital Signs: Blood pressure 110/56, pulse of 55, afebrile. Chest: Crackles bilateral. Heart: S1 and S2, regular. Abdomen: Soft and nontender. Extremities: Trace edema. Laboratory Data: H and H 10.4/32.9. Sodium 139, potassium 4.4, bicarb 28, BUN 52, creatinine 5.5, c alcium 8.8. The patient's SPEP was normal. Serology, all negative including ELKE, ANCA complement, h epatitis B and C, and HIV. Cryoglobulin is still pending. The patient again had a biopsy 1 year jane k. At that time, his biopsy in November 2016 include full house RPGN. The patient received Cytoxan last year, recover. Currently on this admission, the patient received Solu-Medrol 1 g for 3 days and now he is on prednisone for his respiratory status. Current Medications: The patient on its include: 1.Ceftriaxone. 2.Midodrine 5 mg t.i.d. 3.Epogen. 4.Alprazolam. 5.Pantoprazole. 6.Breathing treatment. Assessment And Plan: 1.Acute kidney injury with history of rapidly progressive glomerulonephritis full house confirmed biopsy of 2016, status post Cytoxan course at that time, then switched to CellCept. The patient t reated this time also as rapidly progressive glomerulonephritis with only Solu-Medrol. Could not do kidney biopsy, for that reason we did not start immunosuppressive therapy yet because the patient was not stable enough to do the biopsy. Cellcept has been held. Given the active infection I am going to continue to monitor. The patient is going to be transfer to [facility]. Hopefully, the re going to be more stable to obtain kidney biopsy, then depending on the biopsy. We will decide abo ut the treatment. 2.Hypertension, currently hypotension secondary to sepsis. Continue midodrine. 3.Pneumonia secondary to influenza. Follow up with Pulmonary. Continue CPAP. Continue ceftriaxone . The patient was take off Zosyn and vancomycin. 4.Respiratory failure, multifactorial, secondary to renal failure and pneumonia. The patient was di alyzed on a daily basis for a week. Currently, we will switch him back to dialysis Tuesday, Tuesday , Tuesday, has started to being euvolemic. We will continue treatment with Pulmonary. MISSAEL Voice ID: [id number] Report ID: [id number]
[2018-11-04] MEDS ORDERED: DIGOXIN 0.25 MG/ML AMP IV ONE (15:52)
--- NOTE | 2018-11-04 16:01 | RAD REPORT ---
EXAM DESCRIPTION: Clarisse Pa And Lat (2 Views)11/04/2018 3:41 pm CLINICAL HISTORY: Shortness of breath COMPARISON: November 01, 2018 FINDINGS: Mild bilateral pulmonary opacities. The heart is moderately enlarged. Small pleural effus ions. Central venous catheter remains in place IMPRESSION: Mild CHF
[2018-11-04] MEDS: CEFTRIAXONE/SWI 1gm 1 GM/10 ML SYR IV SCH (16:43)
[2018-11-04] MEDS: METOPROLOL TAR 50 MG TAB PO SCH ×2 (18:35→21:00)
[2018-11-04] MEDS ORDERED: AMIODARONE HCL 150 MG in D5W 100 ML IV STA (21:09)
[2018-11-04] MEDS ORDERED: AMIODARONE HCL 450 MG in D5W 241 ML IV SCH (21:11)
[2018-11-04 21:56] LABS: Magnesium 2.1 mg/dL (1.8-2.4); Potassium 3.4 mmol/L (3.5-5.1)
[2018-11-04] MEDS ORDERED: AMIODARONE HCL 900 MG in Dextrose 5%-Water 482 ML IV SCH (22:00)
[2018-11-04] MEDS ORDERED: HEPARIN/D5W 25,000 UNIT/500 ML BAG IV SCH (22:00)
[2018-11-04] MEDS ORDERED: HEPARIN 5000 UNIT/ML 1 ML VIAL IV SCH (22:00)
[2018-11-04] MEDS ORDERED: AMIODARONE HCL 150 MG/3 ML INJ IV ONE ×3 (22:08→22:17)
[2018-11-04] MEDS ORDERED: D5W 100 ML IV ONE (22:09)
[2018-11-05 03:10] LABS: Absolute Lymphocytes (CBC) 0.2 K/uL (0.7-4.9); Absolute Monocytes 0.7 K/uL (0.1-1.3); Absolute Neutrophil 4.4 K/uL (1.8-8.0); Basophils % 0.7 % (0-1.3); Eosinophils % 1.2 % (0-4.4); Hematocrit 31.9 % (39.6-49.0); Lymphocytes % 3.7 % (15.3-44.8); MPV 9.2 fL (7.6-11.3); Monocytes % 12.7 % (3.3-12.3); RBC Red Blood Cell Count 3.49 M/uL (4.33-5.43)
--- NOTE | 2018-11-05 03:11 | PN ---
The patient was [facility] his renal failure and nephritis; however, suddenly he developed SVT. The patient did not tolerate IV Lopressor because of hypotension . The patient is transferred to ICU. Cardiology consultation has been done. The patient will be ma naged by Cardiology Service for this problem. TAYLER/BRIGIDA Voice ID: [id number] Report ID: [id number]
[2018-11-05 03:15] LABS: Protime INR 1.09
[2018-11-05 03:34] LABS: Potassium 3.2 mmol/L (3.5-5.1)
[2018-11-05 05:20] LABS: Blood Morphology Comment NOTED (NOT SEEN); Ovalocytes 2+; Platelet Estimate ADEQ
[2018-11-05 05:35] VITALS: BMI 28.9
--- NOTE | 2018-11-05 07:49 | EKG ---
Test Date: 2018-11-04 Test Time: 14:18:39 Upholstery Sewer: SHAWNA MEASUREMENT RESULTS: Intervals: Rate: 161 FL: 96 QRSD: 132 QT: 312 QTc: 510 Lillian: P: FL: 96 QRS: 151 T: -25 INTERPRETIVE STATEMENTS: atrial flutter Right bundle branch block, plus right ventricular hypertrophy Possible Lateral infarct, age undetermined T wave abnormality, consider inferior ischemia Abnormal ECG Compared to ECG 04/18/2018 09:22:52 Short FL interval now present Right ventricular hypertrophy now present Myocardial infarct finding now present T-wave abnormality now present Possible ischemia now present Sinus rhythm no longer present Atrial premature complex(es) no longer present Electronically Signed On 11-05-18 07:47:31 CDT by Dustin López
[2018-11-05] MEDS: PANTOPRAZOLE 40MG TABLET PO SCH (08:28)
[2018-11-05 08:57] VITALS: O2SAT 94
[2018-11-05] MEDS: METOPROLOL TAR 50 MG TAB PO SCH (09:00)
[2018-11-05] MEDS: MIDODRINE HCL 5 MG TABLET PO SCH ×2 (09:34→14:00)
[2018-11-05] MEDS: MULTIVITAMINS,THERAPEUT 1 TAB PO SCH (09:34)
[2018-11-05] MEDS: NEPRO SHAKE 237 ML CAN PO SCH (09:35)
[2018-11-05] MEDS ORDERED: POTASSIUM CL SA 10 MEQ TAB PO ONE (12:21)
[2018-11-05] MEDS ORDERED: AMIODARONE HCL 200 MG TAB PO SCH (13:32)
--- NOTE | 2018-11-05 14:17 | CON ---
Date of Consultation: 11/05/2018 The patient admitted to Dr. Mccullough on 10/29/2018. The patient was seen by me on 11/05/2018. Reason For Consultation: Atrial fibrillation. History Of Present Illness: Mr. Lane is a 73-year-old male with a history of hypertension, benign p rostatic hypertrophy, gout, and prostate cancer in the past. Recently developed acute renal failure and Haemophilus influenzae. A few months ago when he had his acute renal failure, he had biopsy cons istent with nephritis and was treated with Cytoxan and apparently improved back to normal. Came back with abdominal pain, edema, and was noted to have recurrent renal failure with a creatinine of 6.79. He began dialysis. Dr. Diaz is following him. There there was a plan to send him to [facility] for another renal biopsy prior to further therapy, but while he was waiting, he went into atrial fib rillation in rate of 150 to 170 with slight hypotension, but no symptoms except for some palpitation. Denied any chest pain. Denied any nausea, vomiting, or diaphoresis. He was initially given 0.5 mg of digoxin, 1 dose. He was given 50 mg p.o. Lopressor with slightly lower atrial fibrillation rate, but continued to have slight hypotension. Past Medical History: As stated above. Allergies: NONE. Review of Systems: Negative. Social History: Negative. Family History: Noncontributory. Medications: Include Lasix, Prinivil, Protonix, Bactrim, and Flomax at home. Physical Examination: Vital Signs: Blood pressure of 84/60, heart rate of 160's, afebrile. HEENT: Negative. Neck: Supple with no bruit. Chest: Clear. Cardiac: Revealed rapid atrial fibrillation. Abdomen: Benign. Extremities: Revealed 1+ edema. Diagnostic Data: Positive for creatinine of 6.79, hemoglobin is 10.4. Impression And Plan: New-onset atrial fibrillation, slight hypotension, although apparently patient runs a blood pressure of about 100 systolic anyway. The patient is asymptomatic. Unresponsive to di goxin and metoprolol. He was started on IV amiodarone in the ICU and by today, he has already conver adam to sinus rhythm. We will not give any more digoxin or metoprolol for now, continue IV amiodarone for now, get an echocardiogram in the morning. I feel comfortable with him leaving to [facility] on today. If he is going to go to [facility], we will switch him to p.o. amiodarone 400 mg b.i.d. for now. I would stop his heparin which was started last night. Long-term depending what the echoca rdiogram shows, we will make decisions further regarding anticoagulation, but for now, I would prefer he does not take any anticoagulation until after his kidney biopsy is done. His other problems obvi ously include his renal failure being worked up. His blood pressure is stable. I will discuss the c ase further with Dr. Mccullough and Dr. Diaz. KENDRA/BRIGIDA Voice ID: [id number] Report ID: [id number]
--- NOTE | 2018-11-05 14:53 | PN ---
Date of Progress Note: 11/05/2018 Subjective: The patient is supposed to be transferred yesterday. Unfortunately, the patient develop ed AFib with RVR with hypertension, could not tolerate beta-neil. For that reason, transfer has b een canceled. The patient was moved to ICU. Cardiology opinion that it could be secondary to beta-a gonist. The patient was started on amiodarone and heparin drip today, patient was converted spontane ously on the amiodarone to sinus rhythm. Heparin drip has been discontinued and the patient was plac ed on heparin subcu. The patient resting today. Physical Examination: Vital Signs: Blood pressure 102/50, pulse of 61, afebrile. Chest: Faint crackles, bilateral. Heart: S1, S2, regular. Systolic murmur. Abdomen: Soft, nontender. Extremities: Trace edema. The patient on nasal cannula. Neuro: Alert, oriented, nonfocal. Laboratory Data: WBC 5.4, H and H 10.4/31.9, platelets 217. Sodium 132, potassium 3.2, bicarb 24, B UN 74, creatinine 6.7, calcium 7.9. The patient is still anuric. Current Medications: The patient on its include: 1.Ceftriaxone. 2.Arformoterol. 3.Midodrine 5 mg t.i.d. 4.Epogen with dialysis. 5.Amiodarone drip, plan to switch to oral. 6.Metoprolol 50 b.i.d. 7.Pantoprazole. Assessment And Plan: 1.Acute kidney injury secondary to nephritis supported with previous biopsy back in 2017 with a then full house deposit. The patient currently had another episode. The patient received 3 doses of the 1 g Solu-Medrol and currently anuric, normal volume. I again resumed the dialysis as Tuesday, day, Tuesday for the time-being. The patient is going to be due for dialysis tomorrow. Given the hyp okalemia, the patient is going to be dialyzed on high potassium bath and we will continue to monitor the patient. Because of the marginal blood pressure, the patient is going to be dialyzed on low temp erature, low blood flow, and a sodium module. 2.Hypertension, currently hypotension. Continue using midodrine. 3.Atrial fibrillation with rapid ventricular response. Follow up with Cardiology. I agree with cur rent regimen. We will watch on the amiodarone. The patient had normal TSH on this admission. 4.Nephritis, as above. 5.Iron deficiency anemia status post IV iron. Continue Epogen. 6.Hypokalemia. I am going to go ahead and replace orally with only 20 given the kidney disease and being anuric. The patient waiting for transfer. MISSAEL Voice ID: [id number] Report ID: [id number]
[2018-11-05 16:54] VITALS: TEMP 97.6
[2018-11-05] MEDS: CEFTRIAXONE/SWI 1gm 1 GM/10 ML SYR IV SCH (18:17)
[2018-11-05 19:00] VITALS: BP 125/57
[2018-11-05] MEDS ORDERED: AMIODARONE HCL 900 MG in Dextrose 5%-Water 482 ML IV SCH (21:00)
[2018-11-06] MEDS ORDERED: HEPARIN 5000 UNIT/ML 1 ML VIAL SQ SCH (09:00)
== END 2018-11-05 19:05 | disposition short-term general hospital (02) | DRG 811 ==
LOC: 4TH 10:35 → OBSVTOIN 10-29 17:45 → 4TH 10-30 10:24 → 3RD-ICU 11-04 20:04
PROVIDERS: ADMIT Internal Medicine; ATTEND Internal Medicine
PROC: 30233N1 Transfusion of Nonautologous Red Blood Cells into Peripheral Vein, Percutaneous Approach (ICD-10-PCS; principal; 2018-10-25)
PROC: 5A1D70Z Performance of Urinary Filtration, Intermittent, Less than 6 Hours Per Day (ICD-10-PCS; 2018-10-27)
PROC: 02HV33Z Insertion of Infusion Device into Superior Vena Cava, Percutaneous Approach (ICD-10-PCS; 2018-10-27)
PROC: B5181ZA Fluoroscopy of Superior Vena Cava using Low Osmolar Contrast, Guidance (ICD-10-PCS; 2018-10-27)
PROC: 5A09457 Assistance with Respiratory Ventilation, 24-96 Consecutive Hours, Continuous Positive Airway Pressure (ICD-10-PCS; 2018-11-02)
DX: D50.9 Iron deficiency anemia, unspecified (principal); N18.6 End stage renal disease; J96.21 Acute and chronic respiratory failure with hypoxia; J14 Pneumonia due to Hemophilus influenzae; N17.9 Acute kidney failure, unspecified; I12.0 Hypertensive chronic kidney disease with stage 5 chronic kidney disease or end stage renal disease; I47.1 Supraventricular tachycardia; I77.6 Arteritis, unspecified; N05.8 Unspecified nephritic syndrome with other morphologic changes; D63.8 Anemia in other chronic diseases classified elsewhere; E87.70 Fluid overload, unspecified; E87.5 Hyperkalemia; I95.1 Orthostatic hypotension; I48.91 Unspecified atrial fibrillation; E87.6 Hypokalemia; K21.9 Gastro-esophageal reflux disease without esophagitis; N40.0 Benign prostatic hyperplasia without lower urinary tract symptoms; R14.0 Abdominal distension (gaseous); G47.33 Obstructive sleep apnea (adult) (pediatric); E78.5 Hyperlipidemia, unspecified; K27.9 Peptic ulcer, site unspecified, unspecified as acute or chronic, without hemorrhage or perforation; M10.9 Gout, unspecified; Z23 Encounter for immunization; Z85.46 Personal history of malignant neoplasm of prostate; Z90.79 Acquired absence of other genital organ(s)
CPT/HCPCS: 36415; 36430; 70450; 71045; 71046; 71250; 74176; 74250; 76000; 76770; 80048; 80053; 80069; 80202; 81003; 81015; 82274; 82553; 82570; 82607; 82652; 82728; 82746; 82805; 82962; 83010; 83520; 83540; 83605; 83615; 83735; 84145; 84156; 84165; 84443; 84466; 84550; 85014; 85018; 85025; 85044; 85610; 85730; 86021; 86038; 86147; 86160; 86225; 86235; 86317; 86335; 86430; 86644; 86704; 86706; 86850; 86900; 86901; 87040; 87070; 87086; 87088; 87184; 87205; 87340; 87389; 87522; 90935; 93005; 94640; 94660; 94760; J0282; J0610; J0690; J0696; J1160; J1644; J1940; J2250; J2310; J2370; J2704; J2916; J2930; J3010; J7030; J7060; J7605; P9016; P9047; Q4081

== ENCOUNTER 2018-12-12 07:16 | Day surgery (SDC) | payer OTHER ==
--- OUTSIDE RECORDS SUMMARY | 2018-12-12 07:20 | XMS REPORT | Clinical Summary ---
:1945 Author Organization [facility] Address [address] [place] [address] Care Team Providers Name Role Phone Asked, No Pcp Primary Care Provider Unavailable Allergies No Known Allergies Medications Medication Sig Dispensed Refills Start Date End Date Status aspirin (ECOTRIN) Take 81 mg by 0 Active 81 MG enteric mouth daily. coated tablet bimatoprost Administer 1 drop 0 Active (LUMIGAN) 0.01 % to both eyes ophthalmic drops nightly. blood-glucose Use as instructed 1 each 0 11/25/2017 Active meter (glucose monitoring kit) kit tamsulosin Take 0.4 mg by 0 Active (FLOMAX) 0.4 mg mouth daily. capsule,extended release 24hr pantoprazole Take 40 mg by 0 Active (PROTONIX) 40 MG mouth daily. EC tablet ferrous sulfate Take 325 mg by 0 Active 325 (65 FE) MG mouth 2 (two) tablet times a day. vit B Take 1 tablet by 0 Active complex-vitamin mouth daily. C-folic acid (NEPHRO-ALICIA OTC) 0.8 mg tablet midodrine Take 1 tablet 90 tablet 0 11/16/2018 Active (PROAMATINE) 2.5 (2.5 mg total) by 9 MG tablet mouth 3 (three) times a day for 30 days. ALPRAZolam Take 1 tablet 30 tablet 0 11/16/2018 Active (XANAX) 0.25 MG (0.25 mg total) 9 tablet by mouth 3 (three) times a day as needed for anxiety for up to 30 days. metoprolol Take 0.5 tablets 30 tablet 0 11/16/2018 Active tartrate (12.5 mg total) 9 (LOPRESSOR) 25 mg by mouth 2 (two) tablet times a day for 30 days. lisinopril Take 0.5 tablets 15 tablet 0 11/16/2018 Active (PRINIVIL,ZESTRIL (2.5 mg total) by 9 ) 5 mg tablet mouth daily for 30 days. apixaban Take 1 tablet 60 tablet 0 11/16/2018 Active (ELIQUIS) 2.5 mg (2.5 mg total) by 9 tablet mouth 2 (two) times a day for 30 days. epoetin lamberto-epbx Infuse 1 mL 12 mL 0 11/17/2018 Active (RETACRIT) 3,000 (3,000 Units 9 unit/mL solution total) into a injection venous catheter 3 (three) times a week for 30 days. polyethylene Take 17 g by 30 packet 0 11/16/2018 Active glycol (MIRALAX) mouth daily as 9 17 gram packet needed for constipation for up to 30 days. leuprolide, 3 Inject 22.5 mg 0 Discontinued month, (ELIGARD) under the skin 8 22.5 mg (3 month) once. syringe sulfamethoxazole- Take 1 tablet by 30 tablet 0 11/25/2017 trimethoprim mouth daily for 8 (BACTRIM SS) 30 days. 400-80 mg per tablet carvedilol Take 1 tablet 60 tablet 0 11/25/2017 (COREG) 3.125 MG (3.125 mg total) 8 tablet by mouth 2 (two) times a day for 30 days. nystatin Take 5 mL by 473 mL 0 11/25/2017 (MYCOSTATIN) mouth 4 (four) 8 100,000 unit/mL times a day for suspension 30 days. Swish in mouth tamsulosin Take 1 capsule 30 capsule 0 11/25/2017 (FLOMAX) 0.4 mg (0.4 mg total) by 8 capsule,extended mouth daily for release 24hr 30 days. sevelamer Take 1 tablet 90 tablet 0 11/25/2017 (RENVELA) 800 mg (800 mg total) by 8 tablet mouth 3 (three) times a day with meals for 30 days. ferrous sulfate Take 1 tablet 60 tablet 0 11/25/2017 325 (65 FE) MG (325 mg total) by 8 tablet mouth 2 (two) times a day with meals for 30 days. pantoprazole Take 1 tablet (40 30 tablet 0 11/26/2017 (PROTONIX) 40 MG mg total) by 8 EC tablet mouth daily for 30 days. predniSONE 60mg oral daily 84 tablet 4 11/25/2017 Discontinued (DELTASONE) 10 mg for two weeks 8 tablet with slow taper, Reduce 10 mg every 2 weeks, until [id number] daily carvedilol Take 3.125 mg by 0 Discontinued (COREG) 3.125 MG mouth 2 (two) 9 tablet times a day with meals. sevelamer Take 800 mg by 0 Discontinued (RENAGEL) 800 MG mouth 3 (three) 9 tablet times a day with meals. ferrous sulfate Take 325 mg by 0 Discontinued 325 (65 FE) MG mouth daily with 8 tablet breakfast. predniSONE Take 10 mg by 0 Discontinued (DELTASONE) 10 mg mouth daily. 9 tablet sulfamethoxazole- Take 1 tablet by 0 Discontinued trimethoprim mouth every other 9 (BACTRIM SS) day. 400-80 mg per tablet lisinopril Take 5 mg by 0 Discontinued (PRINIVIL,ZESTRIL mouth daily. 9 ) 5 mg tablet amoxicillin-pot Take 1 tablet by 0 07/17/2018 clavulanate mouth 2 (two) 9 (AUGMENTIN) times a day. 250-125 mg per tablet levoFLOXacin Take 1 tablet 7 tablet 0 11/17/2018 (LEVAQUIN) 250 MG (250 mg total) by 9 tablet mouth daily for 7 days. 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 Normocytic anemia 11/24/2017 Other proteinuria 11/24/2017 Essential hypertension 11/24/2017 Acute renal failure 11/19/2017 Encounters Date Type Specialty Care Team Description 11/05/2018 - Hospital Encounter Neurosurgery Ayala, Bro Paroxysmal atrial fibrillation (HCC) (Primary Dx); 11/16/2018 MD Demetria Pyelonephritis; Mary Jo Barragan SCAR (acute kidney injury) (HCC); MD Rosa Rapidly progressive glomerulonephritis; Spenser, Essential hypertension MD Bautista 10/28/2018 Intake Access N/A 07/17/2018 - Hospital Encounter Oncology Ok Garcia 07/18/2018 MD Zoe 07/17/2018 Orders Only General Internal Ok Garcia MD 06/05/2018 - Hospital Encounter General Internal Jong Aquino, 06/06/2018 Medicine 06/05/2018 Orders Only General Internal Jong Aquino, Medicine 05/02/2018 - Hospital Encounter General Internal Christopher Mckeon, 05/03/2018 Medicine Jong Olea MD 05/02/2018 Orders Only General Internal Jong Aquino, Seamus JACKSON 03/22/2018 Patient Outreach Quality Khalida Davey RN 03/21/2018 - Hospital Encounter General Internal Teja Varela 03/22/2018 Medicine MD Miles Phoenix Huy B., MD 03/21/2018 Orders Only General Internal Jong Aquino Medicine MD 01/09/2018 - Hospital Encounter General Internal Jong Aquino, RPGN ( rapidly 01/11/2018 Medicine progressive Melinda, [facility] glomerulonephritis) MD Dimitris (Primary Dx) 01/09/2018 Orders Only General Internal Jong Aquino Medicine MD 01/06/2018 Emergency Emergency Medicine after 12/11/2017 Family History Medical History Relation Name Comments [...] Vital Sign Reading Time Taken Blood Pressure 132/62 11/16/2018 5:25 PM CDT Pulse 67 11/16/2018 5:25 PM CDT Temperature 37.1 C (98.7 F) 11/16/2018 3:00 PM CDT Respiratory Rate 17 11/16/2018 5:25 PM CDT Oxygen Saturation 94% 11/16/2018 5:25 PM CDT Inhaled Oxygen Concentration - - Weight 75.2 kg (165 lb 12.8 oz) 11/15/2018 5:50 AM CDT Height 157.5 cm (5' 2") 11/13/2018 9:49 AM CDT Body Mass Index 30.33 11/13/2018 9:49 AM CDT Plan of Treatment Health Maintenance Due Date Last Done Comments SHINGLES VACCINES (#1) 1994 65+ PNEUMOCOCCAL VACCINE (1 of 2 - PCV13) 2009 PNEUMOCOCCAL POLYSACCHARIDE VACCINE AGE 65 AND OVER 2009 INFLUENZA VACCINE 02/08/2019 COLON CANCER SCREENING 11/21/2027 11/20/2017 Procedures Procedure Name Priority Date/Time Associated Comments Diagnosis ESTIMATED GFR Routine 11/16/2018 4:00 Results for this AM CDT procedure are in the results section. BASIC METABOLIC PANEL Routine 11/16/2018 4:00 Results for this AM CDT procedure are in the results section. HC COMPLETE BLD COUNT Routine 11/16/2018 4:00 Results for this W/AUTO DIFF AM CDT procedure are in the results section. CT ABDOMEN WO ORAL STAT 11/15/2018 8:45 Results for this CONTRAST AM CDT procedure are in the results section. HEMOGLOBIN & HEMATOCRIT Timed 11/15/2018 7:53 Results for this AM CDT procedure are in the results section. HEMODIALYSIS Routine 11/15/2018 6:44 AM CDT MISCELLANEOUS REFERRAL Routine 11/15/2018 5:27 Results for this TEST AM CDT procedure are in the results section. ESTIMATED GFR Routine 11/15/2018 5:27 Results for this AM CDT procedure are in the results section. PHOSPHORUS LEVEL Routine 11/15/2018 5:27 Results for this AM CDT procedure are in the results section. MAGNESIUM LEVEL Routine 11/15/2018 5:27 Results for this AM CDT procedure are in the results section. BASIC METABOLIC PANEL Routine 11/15/2018 5:27 Results for this AM CDT procedure are in the results section. ANTI XA, UNFRACTIONATED Routine 11/15/2018 5:20 Results for this AM CDT procedure are in the results section. CBC WITH PLATELET AND Routine 11/15/2018 5:20 Results for this DIFFERENTIAL AM CDT procedure are in the results section. ANTI XA, UNFRACTIONATED Timed 11/14/2018 10:00 Results for this PM CDT procedure are in the results section. MANUAL DIFFERENTIAL Routine 11/14/2018 4:50 Results for this AM CDT procedure are in the results section. CBC WITH PLATELET AND Routine 11/14/2018 4:50 Results for this DIFFERENTIAL AM CDT procedure are in the results section. ESTIMATED GFR Routine 11/14/2018 4:00 Results for this AM CDT procedure are in the results section. COMPREHENSIVE METABOLIC Routine 11/14/2018 4:00 Results for this PANEL AM CDT procedure are in the results section. TOTAL IRON BINDING Routine 11/14/2018 4:00 Results for this CAPACITY AM CDT procedure are in the results section. FERRITIN LEVEL Routine 11/14/2018 4:00 Results for this AM CDT procedure are in the results section. PHOSPHORUS LEVEL Routine 11/14/2018 4:00 Results for this AM CDT procedure are in the results section. MAGNESIUM LEVEL Routine 11/14/2018 4:00 Results for this AM CDT procedure are in the results section. HEMODIALYSIS Routine 11/13/2018 5:41 PM CDT SURGICAL PATHOLOGY Routine 11/13/2018 11:41 Results for this REQUEST AM CDT procedure are in the results section. US NEEDLE BIOPSY Routine 11/13/2018 11:40 Results for this AM CDT procedure are in the results section. PARTIAL THROMBOPLASTIN Routine 11/13/2018 6:25 Results for this TIME (PTT) AM CDT procedure are in the results section. PROTHROMBIN TIME WITH Routine 11/13/2018 6:25 Results for this INR AM CDT procedure are in the results section. HC COMPLETE BLD COUNT Routine 11/13/2018 6:25 Results for this W/AUTO DIFF AM CDT procedure are in the results section. ESTIMATED GFR Routine 11/13/2018 4:00 Results for this AM CDT procedure are in the results section. PHOSPHORUS LEVEL Routine 11/13/2018 4:00 Results for this AM CDT procedure are in the results section. BASIC METABOLIC PANEL Routine 11/13/2018 4:00 Results for this AM CDT procedure are in the results section. ANTI XA, UNFRACTIONATED Routine 11/12/2018 8:00 Results for this AM CDT procedure are in the results section. ANTI XA, UNFRACTIONATED Routine 11/12/2018 1:29 Results for this AM CDT procedure are in the results section. ANTI XA, UNFRACTIONATED Routine 11/11/2018 4:51 Results for this PM CDT procedure are in the results section. ANTI XA, UNFRACTIONATED STAT 11/11/2018 9:00 Results for this AM CDT procedure are in the results section. ESTIMATED GFR Routine 11/11/2018 2:15 Results for this AM CDT procedure are in the results section. BASIC METABOLIC PANEL Routine 11/11/2018 2:15 Results for this AM CDT procedure are in the results section. ANTI XA, UNFRACTIONATED Routine 11/11/2018 2:00 Results for this AM CDT procedure are in the results section. MANUAL DIFFERENTIAL Routine 11/11/2018 1:40 Results for this AM CDT procedure are in the results section. CBC WITH PLATELET AND Routine 11/11/2018 1:40 Results for this DIFFERENTIAL AM CDT procedure are in the results section. URINALYSIS, AUTOMATED Routine 11/10/2018 9:40 Results for this WITH MICROSCOPY PM CDT procedure are in the results section. ANTI XA, UNFRACTIONATED Routine 11/10/2018 6:15 Results for this PM CDT procedure are in the results section. ANTI XA, UNFRACTIONATED Timed 11/10/2018 1:00 Results for this PM CDT procedure are in the results section. HEMODIALYSIS Routine 11/10/2018 8:12 AM CDT ANTI XA, UNFRACTIONATED STAT 11/10/2018 4:30 Results for this AM CDT procedure are in the results section. ESTIMATED GFR Routine 11/10/2018 4:30 Results for this AM CDT procedure are in the results section. LIPID PANEL Routine 11/10/2018 4:30 Results for this AM CDT procedure are in the results section. BASIC METABOLIC PANEL Routine 11/10/2018 4:30 Results for this AM CDT procedure are in the results section. IR TUNNELED DIALYSIS Routine 11/09/2018 4:15 Results for this CATHETER PLACEMENT PM CDT procedure are in the results section. NM MYOCARDIAL PERFUSION Routine 11/09/2018 2:25 Results for this STRESS REST 1 DAY PM CDT procedure are in the results section. CV STRESS TEST NUCLEAR Routine 11/09/2018 2:25 Results for this CARDIO PM CDT procedure are in the results section. PROTHROMBIN TIME WITH Timed 11/09/2018 12:55 Results for this INR AM CDT procedure are in the results section. ESTIMATED GFR Routine 11/09/2018 12:55 Results for this AM CDT procedure are in the results section. TYPE AND SCREEN Routine 11/09/2018 12:55 Results for this AM CDT procedure are in the results section. HC COMPLETE BLD COUNT Routine 11/09/2018 12:55 Results for this W/AUTO DIFF AM CDT procedure are in the results section. BASIC METABOLIC PANEL Routine 11/09/2018 12:55 Results for this AM CDT procedure are in the results section. ANTI XA, UNFRACTIONATED Timed 11/09/2018 12:55 Results for this AM CDT procedure are in the results section. PHOSPHORUS LEVEL Routine 11/09/2018 12:55 Results for this AM CDT procedure are in the results section. MAGNESIUM LEVEL Routine 11/09/2018 12:55 Results for this AM CDT procedure are in the results section. C4 COMPLEMENT COMPONENT Routine 11/09/2018 12:55 Results for this AM CDT procedure are in the results section. C3 COMPLEMENT COMPONENT Routine 11/09/2018 12:55 Results for this AM CDT procedure are in the results section. RHEUMATOID FACTOR Routine 11/09/2018 12:55 Results for this AM CDT procedure are in the results section. ELKE Routine 11/09/2018 12:55 Results for this AM CDT procedure are in the results section. GLOMERULAR BASEMENT Routine 11/09/2018 12:55 Results for this MEMBRANE AB IGG (IFA) AM CDT procedure are in the results section. ANTI-NEUTROPHILIC Routine 11/09/2018 12:55 Results for this CYTOPLASMIC ABS PANEL AM CDT procedure are in the results section. ANTI XA, UNFRACTIONATED Timed 11/08/2018 4:44 Results for this PM CDT procedure are in the results section. ANTI XA, UNFRACTIONATED Routine 11/08/2018 8:00 Results for this AM CDT procedure are in the results section. HEMODIALYSIS Routine 11/08/2018 7:15 AM CDT ESTIMATED GFR Routine 11/08/2018 5:12 Results for this AM CDT procedure are in the results section. HC COMPLETE BLD COUNT Routine 11/08/2018 5:12 Results for this W/AUTO DIFF AM CDT procedure are in the results section. PHOSPHORUS LEVEL Routine 11/08/2018 5:12 Results for this AM CDT procedure are in the results section. MAGNESIUM LEVEL Routine 11/08/2018 5:12 Results for this AM CDT procedure are in the results section. BASIC METABOLIC PANEL Routine 11/08/2018 5:12 Results for this AM CDT procedure are in the results section. ANTI XA, UNFRACTIONATED Routine 11/08/2018 12:24 Results for this AM CDT procedure are in the results section. CREATININE LEVEL, Routine 11/07/2018 9:30 Results for this URINE, RANDOM PM CDT procedure are in the results section. PROTEIN, URINE, RANDOM Routine 11/07/2018 9:30 Results for this PM CDT procedure are in the results section. ANTI XA, UNFRACTIONATED Timed 11/07/2018 5:00 Results for this PM CDT procedure are in the results section. POC GLUCOSE Routine 11/07/2018 4:36 Results for this PM CDT procedure are in the results section. POC GLUCOSE Routine 11/07/2018 12:02 Results for this PM CDT procedure are in the results section. ECHOCARDIOGRAM 2D Routine 11/07/2018 9:54 Results for this COMPLETE W MMODE AM CDT procedure are in SPECTRAL COLOR DOPPLER the results (03688) section. ANTI XA, UNFRACTIONATED Timed 11/07/2018 9:00 Results for this AM CDT procedure are in the results section. POC GLUCOSE Routine 11/07/2018 8:13 Results for this AM CDT procedure are in the results section. ANTI XA, UNFRACTIONATED Routine 11/07/2018 1:10 Results for this AM CDT procedure are in the results section. CBC HEMOGRAM Routine 11/07/2018 1:10 Results for this AM CDT procedure are in the results section. PARTIAL THROMBOPLASTIN Routine 11/07/2018 1:10 Results for this TIME (PTT) AM CDT procedure are in the results section. PROTHROMBIN TIME WITH Routine 11/07/2018 1:10 Results for this INR AM CDT procedure are in the results section. ESTIMATED GFR Routine 11/07/2018 1:10 Results for this AM CDT procedure are in the results section. PHOSPHORUS LEVEL Routine 11/07/2018 1:10 Results for this AM CDT procedure are in the results section. MAGNESIUM LEVEL Routine 11/07/2018 1:10 Results for this AM CDT procedure are in the results section. BASIC METABOLIC PANEL Routine 11/07/2018 1:10 Results for this AM CDT procedure are in the results section. ECG 12-LEAD Routine 11/06/2018 9:50 Results for this PM CDT procedure are in the results section. HEPATITIS B SURFACE STAT 11/06/2018 5:55 Results for this ANTIGEN PM CDT procedure are in the results section. HEMODIALYSIS Routine 11/06/2018 4:56 PM CDT XR CHEST 1 VW PORTABLE STAT 11/06/2018 3:59 Results for this PM CDT procedure are in the results section. US RENAL Routine 11/06/2018 8:43 Results for this AM CDT procedure are in the results section. ESTIMATED GFR Routine 11/06/2018 7:00 Results for this AM CDT procedure are in the results section. PHOSPHORUS LEVEL Routine 11/06/2018 7:00 Results for this AM CDT procedure are in the results section. MAGNESIUM LEVEL Routine 11/06/2018 7:00 Results for this AM CDT procedure are in the results section. B NATRIURETIC PEPTIDE Routine 11/06/2018 7:00 Results for this AM CDT procedure are in the results section. COMPREHENSIVE METABOLIC Routine 11/06/2018 7:00 Results for this PANEL AM CDT procedure are in the results section. PARTIAL THROMBOPLASTIN Routine 11/06/2018 7:00 Results for this TIME (PTT) AM CDT procedure are in the results section. PROTHROMBIN TIME WITH Routine 11/06/2018 7:00 Results for this INR AM CDT procedure are in the results section. HC COMPLETE BLD COUNT Routine 11/06/2018 7:00 Results for this W/AUTO DIFF AM CDT procedure are in the results section. TRANSFUSE RED BLOOD Routine 07/18/2018 10:22 CELLS AM [facility] PREPARE RBC Timed 07/18/2018 8:45 Results for this AM [facility] [employer] procedure are in the results section. TYPE AND SCREEN Timed 07/18/2018 8:45 Results for this AM [facility] [employer] procedure are in the results section. SMEAR REVIEW Routine 07/18/2018 5:15 Results for this AM [employer] [employer] procedure are in the results section. HC COMPLETE BLD COUNT Routine 07/18/2018 5:15 Results for this W/AUTO DIFF AM [employer] procedure are in the results section. ESTIMATED GFR Routine 07/18/2018 4:35 Results for this AM [employer] [employer] procedure are in the results section. BASIC METABOLIC PANEL Routine 07/18/2018 4:35 Results for this AM [employer] procedure are in the results section. ESTIMATED GFR Routine 07/17/2018 11:10 Results for this AM [employer] procedure are in the results section. COMPREHENSIVE METABOLIC Routine 07/17/2018 11:10 Results for this PANEL AM [facility] [employer] procedure are in the results section. HC COMPLETE BLD COUNT Routine 07/17/2018 11:10 Results for this W/AUTO DIFF AM [employer] procedure are in the results section. HC COMPLETE BLD COUNT Routine 06/06/2018 4:15 Results for this W/AUTO DIFF AM [employer] procedure are in the results section. ESTIMATED GFR Routine 06/06/2018 4:00 Results for this AM [employer] procedure are in the results section. BASIC METABOLIC PANEL Routine 06/06/2018 4:00 Results for this AM [employer] procedure are in the results section. URINALYSIS SCREEN AND Routine 06/05/2018 3:30 Results for this MICROSCOPY, WITH REFLEX PM [facility] [employer] procedure are in TO CULTURE the results section. GRAM STAIN Routine 06/05/2018 3:30 Results for this PM [employer] procedure are in the results section. URINE CULTURE Routine 06/05/2018 3:30 Results for this PM [employer] procedure are in the results section. ESTIMATED GFR STAT 06/05/2018 1:55 Results for this PM [employer] procedure are in the results section. HC COMPLETE BLD COUNT STAT 06/05/2018 1:55 Results for this W/AUTO DIFF PM [employer] procedure are in the results section. BASIC METABOLIC PANEL STAT 06/05/2018 1:55 Results for this PM [employer] procedure are in the results section. HEMODIALYSIS [...] procedure are in the results section. after 12/11/2017 Results Estimated GFR (11/16/2018 4:00 AM CDT)Only the most recent of18 resultswithin the time period is included. [facility] Estimated GFR 28 (A) mL/min/1.73 [facility] Comment: HOSPITAL CatergoryUnitsInterpretation G1 >=90 Normal or high G2 60-89Mildly decreased [id number] to moderately decreased [id number] to severely decreased G4 15-29Severely decreased G5 <15Kidney failure The eGFR was calculated using the Chronic Kidney Disease Epidemiology Collaboration (CKD-EPI) equation. Interpretation is based on recommendations of the National Kidney Foundation-Kidney Disease Outcomes Quality Initiative (NKF-KDOQI) published in 2014. Specimen Plasma specimen Performing Organization Address City/State/Zipcode Phone Number [facility] DEPARTMENT OF PATHOLOGY AND [address] [place] [address] GENOMIC MEDICINE [address] [address] CBC with platelet and differential (11/16/2018 4:00 AM CDT)Only the most recent of18 resultswithin the time period is included. [facility] WBC 4.73 4.50 - 11.00 [facility] k/[facility] RBC 2.71 (L) 4.40 - 6.00 [facility] m/[facility] HGB 7.8 (L) 14.0 - 18.0 [facility] g/dL HOSPITAL HCT 27.3 (L) 41.0 - 51.0 % [facility] MCV 100.7 (H) 82.0 - 100.0 [facility] MCH 28.8 27.0 - 34.0 pg [facility] MCHC 28.6 (L) 31.0 - 37.0 [facility] g/dL [facility] RDW - SD 60.0 (H) 37.0 - 55.0 [facility] MPV 10.5 8.8 - 13.2 [facility] Platelet count 144 (L) 150 - 400 k/uL [facility] Nucleated RBC 0.00 /100 WBC [facility] Neutrophils 74.1 (H) 39.0 - 69.0 % [facility] Lymphocytes 8.9 (L) 25.0 - 45.0 % [facility] Monocytes 13.5 (H) 0.0 - 10.0 % [facility] Eosinophils 2.3 0.0 - 5.0 % [facility] Basophils 0.4 0.0 - 1.0 % [facility] Immature granulocytes 0.8Comment: 0.0 - 1.0 % [facility] "[facility] granulocytes" (promyelocytes , myelocytes, metamyelocytes ) Specimen Blood Performing Organization Address City/State/Zipcode Phone Number [facility] DEPARTMENT OF PATHOLOGY AND [address] [place] [id number] GENOMIC MEDICINE [address] [address] Basic metabolic panel (11/16/2018 4:00 AM CDT)Only the most recent of16 resultswithin the time period is included. Sodium 138 135 - 148 mEq/L [facility] Potassium 4.1 3.5 - 5.0 mEq/L [facility] Chloride 101 98 - 112 mEq/L [facility] CO2 27 24 - 31 mEq/L [facility] Anion gap 10@ANIO 7 - 15 mEq/L [facility] BUN 9 8 - 23 mg/dL [facility] Creatinine 2.20 (H) 0.70 - 1.20 mg/dL [facility] Glucose 95 65 - 99 mg/dL [facility] Calcium 8.2 (L) 8.8 - 10.2 mg/dL [facility] Specimen Plasma specimen Performing Organization Address City/State/Zipcode Phone Number [facility] DEPARTMENT OF PATHOLOGY AND [address] [place] [address] GENOMIC MEDICINE [facility] [address] [place] [address] CT Abdomen Wo Oral Contrast (11/15/2018 8:45 AM CDT) Specimen Narrative Performed At EXAMINATION:CT ABDOMEN WO ORAL CONTRAST [facility] CLINICAL HISTORY:recent kidney biopsyR O hematomano contrast needed TECHNIQUE:CT of the abdomen was obtained without the administration of intravenous or enteric contrast. Coronal and sagittal reformats were also obtained. DOSE REDUCTION: CT imaging was performed with iterative reconstruction technique and/or automated exposure control to reduce radiation dose. COMPARISON:Ultrasound-guided left renal biopsy from 11/13/2018 FINDINGS: 1.Both kidneys are normal in morphology. There is no evidence of left-sided perinephric hematoma. No perinephric fluid collections. No left or right-sided hydronephrosis or nephrolithiasis. There is an exophytic cyst arising from the lower pole of the left kidney. 2.Small bilateral pleural effusions with associated lower lobe consolidative airspace disease likely representing atelectasis. The cardiac size is normal. No pericardial effusion. Three-vessel coronary artery calcification is noted. No hiatal hernia. 3.Noncontrast evaluation of the liver is unremarkable. No intrahepatic biliary duct dilatation. The patient is status post cholecystectomy. 4.The pancreas, spleen, and adrenals are unremarkable. 5.Visualized loops of large and small bowel are unremarkable. Diverticulosis is seen within the transverse colon and descending colon. 6.The abdominal aorta is normal in caliber with a moderate amount of calcified atherosclerotic disease. 7.No retroperitoneal lymphadenopathy. 8.The bones of the abdomen are osteopenic but otherwise unremarkable. Old right-sided rib fractures and old right-sided iliac bone fracture with orthopedic hardware in place. IMPRESSION: 1.There is no evidence of left-sided perinephric hematoma. 2.No retroperitoneal hematomas. 3.Small bilateral pleural effusions. [facility]-[id number] Procedure Note Hm Interface, Radiology Results Incoming - 11/15/2018 8:54 AM CDT EXAMINATION: CT ABDOMEN WO ORAL CONTRAST CLINICAL HISTORY: recent kidney biopsy R O hematoma no contrast needed TECHNIQUE: CT of the abdomen was obtained without the administration of intravenous or enteric contrast. Coronal and sagittal reformats were also obtained. DOSE REDUCTION: CT imaging was performed with iterative reconstruction technique and/or automated exposure control to reduce radiation dose. COMPARISON: Ultrasound-guided left renal biopsy from 11/13/2018 FINDINGS: 1. Both kidneys are normal in morphology. There is no evidence of left-sided perinephric hematoma. No perinephric fluid collections. No left or right-sided hydronephrosis or nephrolithiasis. There is an exophytic cyst arising from the lower pole of the left kidney. 2. Small bilateral pleural effusions with associated lower lobe consolidative airspace disease likely representing atelectasis. The cardiac size is normal. No pericardial effusion. Three-vessel coronary artery calcification is noted. No hiatal hernia. 3. Noncontrast evaluation of the liver is unremarkable. No intrahepatic biliary duct dilatation. The patient is status post cholecystectomy. 4. The pancreas, spleen, and adrenals are unremarkable. 5. Visualized loops of large and small bowel are unremarkable. Diverticulosis is seen within the transverse colon and descending colon. 6. The abdominal aorta is normal in caliber with a moderate amount of calcified atherosclerotic disease. 7. No retroperitoneal lymphadenopathy. 8. The bones of the abdomen are osteopenic but otherwise unremarkable. Old right-sided rib fractures and old right-sided iliac bone fracture with orthopedic hardware in place. IMPRESSION: 1. There is no evidence of left-sided perinephric hematoma. 2. No retroperitoneal hematomas. 3. Small bilateral pleural effusions. [facility]-[id number] Performing Organization Address City/[facility]/Zipcode Phone Number [facility] [address] [place] [address] Hemoglobin & hematocrit (11/15/2018 7:53 AM CDT) [facility] HGB 7.8 (L) 14.0 - 18.0 g/dL [facility] HCT 26.3 (L) 41.0 - 51.0 % [facility] Specimen Blood Performing Organization Address City/[facility]/Zipcode Phone Number [facility] DEPARTMENT OF PATHOLOGY AND [address] [place] [address] GENOMIC MEDICINE [address] [address] Miscellaneous referral test (11/15/2018 5:27 AM CDT) [facility] Mis test result see note (A) [facility] Comment: Report Status:FINAL Oxalate, P 3.8 mcmol/L Reference Value: <1.6 >>> Flag: HIGH <<< Sample was received nonacidified and frozen.In nonacified samples oxalate values may increase spontaneously (average 50% increase for plasma oxalate <15 mcmol; average 10% increase for plasma oxalate >15 mcmol) ADDITIONAL INFORMATION On 01/06/2016 the plasma oxalate assay method changed resulting in an average 16% increase in plasma oxalate values. - - - - - - - - - - - - - - - - - - - - - - - - - - - - - - Laboratory Notes: This test was developed and its performance characteristics determined by [facility] in a manner consistent with CLIA requirements. This test has not been cleared or approved by the U.S. Food and Drug Administration. + + :PERFORMING SITE LEGEND : + + : MCR: [facility]: :: [address] [place] [address]: + + Specimen Narrative Performed At [facility] Performing Organization Address City/State/Zipcode Phone Number [facility] [address] [place] [address] [facility] [address] [place] [address] Phosphorus level (11/15/2018 5:27 AM CDT)Only the most recent of8 resultswithin the time period is included. [facility] Phosphorus 3.3 2.4 - 4.5 mg/dL [facility] Specimen Plasma specimen Performing Organization Address City/[facility]/Zipcode Phone Number [facility] DEPARTMENT OF PATHOLOGY AND [address] [place] [phone] Magnesium level (11/15/2018 5:27 AM CDT)Only the most recent of7 resultswithin the time period is included. [facility] Magnesium 1.7 1.6 - 2.4 mg/dL [facility] Specimen Plasma specimen Performing Organization Address City/[facility]/Zipcode Phone Number [facility] DEPARTMENT OF PATHOLOGY AND [address] [place] [phone] Anti Xa, unfractionated (11/15/2018 5:20 AM CDT)Only the most recent of17 resultswithin the time period is included. Anti Xa, 0.39Comment: 0.30 - 0.70 FULDA unfractionated Therapeutic Range: U/mL [facility] 0.30 - 0.70 U/mL HOSPITAL Specimen Blood Performing Organization Address City/[facility]/Zipcode Phone Number [facility] DEPARTMENT OF PATHOLOGY AND [address] [place] [phone] Manual differential (11/14/2018 4:50 AM CDT)Only the most recent of2 resultswithin the time period is included. [facility] Signature Manual differential PERFORMED [facility] Neutrophils 85.0 (H) 39.0 - 69.0 % [facility] Lymphocytes 6.0 (L) 25.0 - 45.0 % [facility] Monocytes 7.0 0.0 - 10.0 % [facility] Eosinophils 2.0 0.0 - 5.0 % [facility] Basophils 0.0 0.0 - 1.0 % [facility] Metamyelocytes 0 % [facility] Promyelocytes 0 % [facility] Platelet slide review Mindy slt decr [facility] Anisocytosis Moderate [facility] Ovalocytes Moderate [facility] Specimen Performing Organization Address City/State/[facility]ode Phone Number [facility] DEPARTMENT OF PATHOLOGY AND [address] [place] [address] Total iron binding capacity (11/14/2018 4:00 AM CDT) Iron level 63 59 - 158 ug/dL [facility] Iron binding capacity 136 (L) 200 - 400 ug/dL [facility] % Saturation 46.3 (H) 20.0 - 40.0 % [facility] Specimen Plasma specimen Performing Organization Address City/[facility] Phone Number [facility] DEPARTMENT OF PATHOLOGY AND [address] [place] [address] Ferritin level (11/14/2018 4:00 AM CDT) Ferritin level 629 (H) 30 - 400 ng/mL [facility] Specimen Plasma specimen Performing Organization Address [facility] Phone Number [facility] DEPARTMENT OF PATHOLOGY AND [address] [place] [address] Comprehensive metabolic panel (11/14/2018 4:00 AM CDT)Only the most recent of4 resultswithin the time period is included. Sodium 138 135 - 148 [facility] mEq/L [facility] Potassium 4.2 3.5 - 5.0 [facility] mEq/L [facility] Chloride 101 98 - 112 mEq/L [facility] CO2 25 24 - 31 mEq/L [facility] Anion gap 12@ANIO 7 - 15 mEq/L [facility] BUN 9 8 - 23 mg/dL [facility] Creatinine 2.11 (H) 0.70 - 1.20 [facility] mg/dL HOSPITAL Glucose 148 (H) 65 - 99 mg/dL [facility] Calcium 8.0 (L) 8.8 - 10.2 [facility] mg/dL [facility] Protein 5.7 (L) 6.3 - 8.3 g/dL [facility] Comment: HOSPITAL 4.6-7.0 g/dL 1 week 4.4-7.6 g/dL 7 months-1year5.1-7.3 g/dL 1-2 years5.6-7.5 g/dL >3 years6.0-8.0 g/dL 18-150 6.3-8.3 g/dL Albumin 2.2 (L) 3.5 - 5.0 g/dL [facility] A/G ratio 0.6 (L) 0.7 - 3.8 [facility] Alkaline phosphatase 61 40 - 129 U/L [facility] AST 22 10 - 50 U/L [facility] ALT 15 5 - 50 U/L [facility] Total bilirubin <0.2 0.0 - 1.2 [facility] mg/dL HOSPITAL Specimen Plasma specimen Performing Organization Address City/State/Zipcode Phone Number [facility] DEPARTMENT OF PATHOLOGY AND [address] [place] [phone] GENOMIC MEDICINE [address] [address] Surgical pathology request (11/13/2018 11:41 AM CDT) [facility] DEPARTMENT OF PATHOLOGY AND GENOMIC MEDICINE Surgical pathology See link below [facility] DEPARTMENT OF report for PDF Lab PATHOLOGY AND Report GENOMIC MEDICINE Result status This is Final [facility] DEPARTMENT OF Report for PATHOLOGY AND [id number] GENOMIC MEDICINE Specimen Performing Organization Address City/State/Zipcode Phone Number [facility] DEPARTMENT OF PATHOLOGY AND [address] [place] [address] GENOMIC MEDICINE US Needle Biopsy (11/13/2018 11:40 AM CDT) Specimen Narrative Performed At [facility] Examination:US NEEDLE BIOPSY Clinical history:"H O RPGNnow with ARF" Comparison:There are no prior studies for comparison. Conscious sedation:After the risks and benefits of conscious sedation were discussed, midazolam and fentanyl were administered intravenously.Throughout the conscious sedation duration, the patient was continuously monitored by a registered nurse. The physician intraservice [id number]-ry-pijv time with the patient was 14 minutes. Technique:Alternative therapies and the procedure's risks and benefits were discussed with the patient.Written, informed consent was obtained. The left flank was imaged sonographically.An appropriate access site over the left kidney was chosen.The overlying skin was prepared using routine, sterile technique.For local analgesia, 1% buffered lidocaine solution was injected into the overlying soft tissues.Using real-time sonographic guidance, 2 18-gauge cores were obtained.The sample obtained was reviewed by the attending pathologist and was deemed sufficient for diagnostic evaluation. Estimated blood loss:Less than 1 cc. Complications:None. Specimens removed:As above. Assistants:None. IMPRESSION: Technically successful left [place] kidney biopsy. Thank you for allowing us to participate in the care of your patient. [facility]-[id number] Procedure Note Hm Interface, Radiology Results Incoming - 11/13/2018 3:07 PM CDT Examination: US NEEDLE BIOPSY Clinical history: "H O RPGN now with ARF" Comparison: There are no prior studies for comparison. Conscious sedation: After the risks and benefits of conscious sedation were discussed, midazolam and fentanyl were administered intravenously. Throughout the conscious sedation duration, the patient was continuously monitored by a registered nurse. The physician intraservice [id number]-ry-dxbh time with the patient was 14 minutes. Technique: Alternative therapies and the procedure's risks and benefits were discussed with the patient. Written, informed consent was obtained. The left flank was imaged sonographically. An appropriate access site over the left kidney was chosen. The overlying skin was prepared using routine, sterile technique. For local analgesia, 1% buffered lidocaine solution was injected into the overlying soft tissues. Using real-time sonographic guidance, 2 18-gauge cores were obtained. The sample obtained was reviewed by the attending pathologist and was deemed sufficient for diagnostic evaluation. Estimated blood loss: Less than 1 cc. Complications: None. Specimens removed: As above. Assistants: None. IMPRESSION: Technically successful left [place] kidney biopsy. Thank you for allowing us to participate in the care of your patient. [facility]-[id number] Performing Organization Address City/[facility]/Zipcode Phone Number [facility] [address] [place] [phone] Partial thromboplastin time, activated (11/13/2018 6:25 AM CDT)Only the most recent of4 resultswithin the time period is included. Pathologist [facility] PTT 37.2 (H) 23.0 - 36.0 [facility] Comment: [facility] PTT therapeutic range for unfractionated heparin is 61.0-112.0 seconds which corresponds to Anti-Xa 0.3-0.7 U/ml. Specimen Blood Performing Organization Address [facility] Phone Number [facility] DEPARTMENT OF PATHOLOGY AND [address] [place] [phone] [place] [address] Prothrombin time with INR (11/13/2018 6:25 AM CDT)Only the most recent of5 resultswithin the time period is included. [facility] Prothrombin time 13.2 11.5 - 14.5 [facility] INR 1.0 [facility] Comment: ATILIO The International Normalized Ratio (INR) is a therapeutic HOSPITAL monitoring tool for patients who are stable on oral anticoagulant therapy. An INR of 2.0-3.0 is suggested for deep vein thrombosis/pulmonary embolism. Specimen Blood Performing Organization Address City/[facility]ode Phone Number [facility] DEPARTMENT OF PATHOLOGY AND [address] [place] [phone] [place] [address] Urinalysis, automated with microscopy (11/10/2018 9:40 PM CDT) Color, UA Dark Yellow [facility] Appearance, UA Hazy [facility] Specific gravity, UA 1.017 1.001 - 1.035 [facility] pH, UA 5.0 5.0 - 8.5 [facility] Protein, UA 3+ (A) Negative [facility] Glucose, UA 1+ (A) Negative [facility] Ketones, UA Trace (A) Negative [facility] Bilirubin, UA Negative Negative [facility] Blood, UA Small (A) Negative [facility] Nitrite, UA Negative Negative [facility] Urobilinogen, UA <2.0 <2.0 [facility] Leukocyte esterase, Negative Negative [facility] Epithelial cells, UA 1 /HPF [facility] Round epithelial 2 (H) 0 - 1 /HPF [facility] cells, HOSPITAL WBC, UA 8 (H) 0 - 1 /HPF [facility] RBC, UA 2 0 - 5 /HPF [facility] Bacteria, UA Few None seen [facility] Amorphous crystals Few [facility] Yeast, UA None seen [facility] Yeast with None seen [facility] pseudohyphae, [facility] Specimen Urine Performing Organization Address City/State/Zipcode Phone Number [facility] DEPARTMENT OF PATHOLOGY AND [address] [place] [address] GENOMIC MEDICINE [address] [address] Lipid panel (11/10/2018 4:30 AM CDT) Cholesterol 128 <200 mg/dL [facility] Triglycerides 86 <150 mg/dL [facility] HDL cholesterol 68 >40 mg/dL [facility] LDL cholesterol 55Comment: Result <100 mg/dL FULDA obtained by direct [facility] LDL measurement [facility] Lipid panel [facility] interpretation Comment: [facility] Total Cholesterol (mg/dL) [facility] <200 Desirable [phone]-pmfg >=240High Triglycerides (mg/dL) <150 Normal [phone]-omxo 200-499High >=500Very high HDL Cholesterol (mg/dL) <40Low (male) <40Low (female) LDL Cholesterol (mg/dL) <100 Optimal 100-129Near or above optimal [phone]-hlzm 160-189High >=190Very high Risk Catergories that modify [...] mg/dL) Specimen Plasma specimen Performing Organization Address City/State/Zipcode Phone Number [facility] DEPARTMENT OF PATHOLOGY AND [address] [place] [address] GENOMIC MEDICINE [facility] [address] [place] [address] IR Tunneled Dialysis Catheter Placement (11/09/2018 4:15 PM CDT) Specimen Narrative Performed At [facility] Procedure: 1.Right internal jugular vein tunnel dialysis catheter placement. 2.Right nontunneled dialysis catheter removal. Performing Radiologist: Bright Jamison MD Assistants: None Anesthesia Type: Under physician supervision, Versed and fentanyl were administered intravenously for moderate sedation. Pulse oximetry, heart rate, and blood pressure were continuously monitored by independent trained observer.The physician spent 14 minutes ccgh-[id number] sedation time with the patient.Lidocaine 1% was used for local anesthesia. Preprocedure Diagnosis: End-stage renal disease Post Procedure Diagnosis: Same Technique: Written informed consent was obtained prior to the procedure. The patient was brought to the fluoroscopy suite and placed supine on the table. The right neck and upper chest were prepped and draped in usual sterile fashion. All elements of maximal sterile barrier technique were utilized. 1% lidocaine was used for local anesthesia. Under real-time ultrasound guidance, a 21-gauge micropuncture needle was advanced into the right internal jugular vein.Through the needle, a 0.018 inch mandril wire was advanced centrally. The needle was exchanged for a 5 [place] micropuncture introducer sheath over the wire. The wire and inner dilator were removed. A 0.035 inch Amplatz wire was advanced through the sheath into the inferior vena cava. The right upper chest was then anesthetized using 1% lidocaine with epinephrine. A small incision was made. A 23 cm (tip to cuff) palindrome tunneled dialysis catheter was then tunneled from the incision to the venotomy site. The catheter was placed into the superior vena cava through a peel-away sheath. The catheter tip was placed over the right atrium under real time fluoroscopic visualization.All ports were tested and demonstrated adequate flow. The catheter was packed with heparin and secured to the skin using suture.The right internal jugular vein nontunneled dialysis catheter was then removed intact using gentle traction. A sterile occlusive dressing was applied. Radiation Dose: Ka,r=8 mGy Complications: None Specimens Removed: None Estimated Blood Loss: Less than 1 mL Blood/Blood Products Administered: None Grafts/Implants: As described in the above report. Impression: 1. Ultrasound shows an anechoic and compressible right internal jugular vein. 2. Uncomplicated right tunneled dialysis catheter placement. The new catheter is ready for use. 3. Uncomplicated right internal jugular vein nontunneled dialysis catheter removal. [facility]-[id number] Procedure Note [facility], Radiology Results Incoming - 11/09/2018 4:26 PM CDT Procedure: 1. Right internal jugular vein tunnel dialysis catheter placement. 2. Right nontunneled dialysis catheter removal. Performing Radiologist: Bright Jamison MD Assistants: None Anesthesia Type: Under physician supervision, Versed and fentanyl were administered intravenously for moderate sedation. Pulse oximetry, heart rate, and blood pressure were continuously monitored by independent trained observer. The physician spent 14 minutes [id number]-kd-[id number] sedation time with the patient. Lidocaine 1% was used for local anesthesia. Preprocedure Diagnosis: End-stage renal disease Post Procedure Diagnosis: Same Technique: Written informed consent was obtained prior to the procedure. The patient was brought to the fluoroscopy suite and placed supine on the table. The right neck and upper chest were prepped and draped in usual sterile fashion. All elements of maximal sterile barrier technique were utilized. 1% lidocaine was used for local anesthesia. Under real-time ultrasound guidance, a 21-gauge micropuncture needle was advanced into the right internal jugular vein. Through the needle, a 0.018 inch mandril wire was advanced centrally. The needle was exchanged for a 5 [place] micropuncture introducer sheath over the wire. The wire and inner dilator were removed. A 0.035 inch Amplatz wire was advanced through the sheath into the inferior vena cava. The right upper chest was then anesthetized using 1% lidocaine with epinephrine. A small incision was made. A 23 cm (tip to cuff) palindrome tunneled dialysis catheter was then tunneled from the incision to the venotomy site. The catheter was placed into the superior vena cava through a peel-away sheath. The catheter tip was placed over the right atrium under real time fluoroscopic visualization. All ports were tested and demonstrated adequate flow. The catheter was packed with heparin and secured to the skin using suture. The right internal jugular vein nontunneled dialysis catheter was then removed intact using gentle traction. A sterile occlusive dressing was applied. Radiation Dose: Ka,r=8 mGy Complications: None Specimens Removed: None Estimated Blood Loss: Less than 1 mL Blood/Blood Products Administered: None Grafts/Implants: As described in the above report. Impression: 1. Ultrasound shows an anechoic and compressible right internal jugular vein. 2. Uncomplicated right tunneled dialysis catheter placement. The new catheter is ready for use. 3. Uncomplicated right internal jugular vein nontunneled dialysis catheter removal. [facility]-[id number] Performing Organization Address [facility] Phone Number [facility] [address] [place] [address] Cv stress test (11/09/2018 2:25 PM CDT) Resting HR 68 [facility] Resting BP 135 [facility] Peak MET Achieved 1.0 [facility] Protocol Name REGPIA [facility] Time in Exercise 00:01:00 [facility] Phase Max Systolic BP 135 [facility] Max Diastolic BP 62 [facility] Max Heart Rate 83 [facility] Max Predicted Heart 146 [facility] Rate Target HR Formula (220 - Age)*100% [facility] Stress Test Waveform interpreted in [facility] Impression report associated with image study. No interpretation is provided as part of this Stress ECG report.-Electronically Signed By Charlie JACKSON, Gabriel Huber ([id number]), editor department Gayatri Jerez ([id number]) on 11/09/2018 12:45:08 PM Target HR 146.00 bpm [facility] Specimen Narrative Performed At Performing Organization Address [facility] Phone Number [facility] [address] [place] [address] Nm myocardial perfusion (11/09/2018 2:25 PM CDT) Specimen Narrative Performed At [facility] Nuclear Cardiology and Cardiac CT [address] [place] [address] Myocardial Perfusion Imaging Report Stress ECG tracings are available in MUSE, EPIC and CV Web All ECG interpretations are included in this report Pat.Name:Dominic LANE.ID:[id number] .Date: 11/09/2018 Refer.MD:JELENA GONZALEZ MD Exam Time: 10:50:00 AM Study Type:Myocardial Perfusion Imaging Height:62inBSA: 1.75 m2 DOBAge:1945,73Y Sex: MALE BP:135/62HR: 68 bpm Nuclear Tech:Shahnaz Posey [facility],ARRT/Juarez Thompson [facility], ARRT Pat. Stat.:Inpatient Room:[place] [address] Event ID:[id number] Order ID:[id number] Reason for Study:CAD History / Clinical:Afib, HTN, Tobacco used, BPH, Prostrate Cancer, ESRD Procedures:Single Day Stress / Rest Risk Factors:Hypertension, Smoker Clinical Symptoms:Regadenoson SUMMARY: SCINTIGRAPHIC RESULTS Perfusion Defect Size (% LV) 15% Total 0% Uthzzles30% Scar Left Ventricular Perfusion Results There is a mild apical lateral, mid and basal inferolateral perfusion defect during stress which remains unchanged with rest imaging.There is a mild apical perfusion defect during stress which improves with rest imaging. Gated SPECT Results The post stress left ventricular ejection fraction is 74% with hypokinesis of all hypoperfused turcios.Left ventricular end-diastolic volume is 117 ml; end-systolic volume is30 ml.The left ventricle is of normal size at stress and rest.The right ventricle is of normal size with normal wall motion. Conclusion Abnormal regadenoson Tc-99m tetrofosmin myocardial perfusion study compatible with predominance of scar in the circumflex coronary artery vascular territory. The LVEF is normal. CT Findings: Coronary calcification is present.The ascending and descending aorta are normal in size. There is no significant pericardial effusion. Mitral annular calcification. Catheter in the SVC. Bilateral pleural effusions. Comments The study results indicate a intermediate (1%-2%) annual risk for a cardiac or non-fatal myocardial infarction. Study Quality/Artifacts The study quality is good. Comparison to Previous Study None available. STRESS: Baseline Vital Signs:Intervention: Regadenoson 0.4mg/5ml IV over 10 seconds followed by radiotracer injection and 5ml saline flush ECG: Normal Sinus Rhythm, Right bundle branch block, Right ventricular hypertrophy HR:68 BP:135/62 Stress Test Results: Target HR: 124 Symptoms and Complications: Arrhythmias: None Terminated: As per Regadenoson protocol Symptoms:Flushing, Shortness of breath, Flushing Conclusions: Normal heart rate response to pharmacological stress, Normal blood pressure response to pharmacological stress Signed 11/09/2018 03:46 PM Bennie Jiménez MD Procedure Note Interface, Radiology Results In - 11/09/2018 3:46 PM CDT Nuclear Cardiology and Cardiac CT [address] [place] [address] Myocardial Perfusion Imaging Report Stress ECG tracings are available in [employer], [employer] and [employer] All ECG interpretations are included in this report Pat.Name: PAN LANE Pat.ID: [id number] .Date: 11/09/2018 Refer.MD: JELENA GONZALEZ MD Exam Time: 10:50:00 AM Study Type:Myocardial Perfusion Imaging Height: 62in BSA: 1.75 m2 Age: 3 1945,73Y Sex: MALE BP: 135/62 HR: 68 bpm Nuclear Tech:Shahnaz Posey [facility],ARRT/MNIA ZunigaMT, ARRT Pat. Stat.:Inpatient Room: [place] [address] Nuclear Event ID:[id number] Order ID: [id number] Reason for Study:CAD History / Clinical:Afib, HTN, Tobacco used, BPH, Prostrate Cancer, ESRD Procedures:Single Day Stress / Rest Risk Factors:Hypertension, Smoker Clinical Symptoms:Regadenoson SUMMARY: SCINTIGRAPHIC RESULTS Perfusion Defect Size (% LV) 15% Total 0% Ischemia 15% Scar Left Ventricular Perfusion Results There is a mild apical lateral, mid and basal inferolateral perfusion defect during stress which remains unchanged with rest imaging. There is a mild apical perfusion defect during stress which improves with rest imaging. Gated SPECT Results The post stress left ventricular ejection fraction is 74% with hypokinesis of all hypoperfused turcios. Left ventricular end-diastolic volume is 117 ml; end-systolic volume is 30 ml. The left ventricle is of normal size at stress and rest. The right ventricle is of normal size with normal wall motion. Conclusion Abnormal regadenoson Tc-99m tetrofosmin myocardial perfusion study compatible with predominance of scar in the circumflex coronary artery vascular territory. The LVEF is normal. CT Findings: Coronary calcification is present. The ascending and descending aorta are normal in size. There is no significant pericardial effusion. Mitral annular calcification. Catheter in the SVC. Bilateral pleural effusions. Comments The study results indicate a intermediate (1%-2%) annual risk for a cardiac or non-fatal myocardial infarction. Study Quality/Artifacts The study quality is good. Comparison to Previous Study None available. STRESS: Baseline Vital Signs: Intervention: Regadenoson 0.4mg/5ml IV over 10 seconds followed by radiotracer injection and 5ml saline flush ECG: Normal Sinus Rhythm, Right bundle branch block, Right ventricular hypertrophy HR: 68 BP: 135/62 Stress Test Results: Target HR: 124 Symptoms and Complications: Arrhythmias: None Terminated: As per Regadenoson protocol Symptoms: Flushing, Shortness of breath, Flushing Conclusions: Normal heart rate response to pharmacological stress, Normal blood pressure response to pharmacological stress Signed 11/09/2018 03:46 PM Bennie Jiménez MD Performing Organization Address City/State/Zipcode Phone Number [facility] [address] [place] [address] Glomerular basement membrane Ab IgG (IFA) (11/09/2018 12:55 AM CDT) Glomerular Negative Negative [facility] basement membrane Comment: Ab INTERPRETIVE INFORMATION:GBM Ab, IgG (IFA) When present, [...] biopsy. Test developed and characteristics determined by [employer]. See Compliance Statement D: [employer]CS Performed by [employer], [address] [place] [id number] [email or web address], Orville Dasilva MD - Lab. Director Specimen Serum Performing Organization Address [facility]/Zipcode Phone Number [facility] [address] [place] [phone] [facility] [address] [place] [address] Anti-neutrophilic cytoplasmic Abs panel (11/09/2018 12:55 AM CDT) [facility] ANCA screen Negative Negative [facility] Specimen Blood Performing Organization Address City/[facility]/Zipcode Phone Number [facility] DEPARTMENT OF PATHOLOGY AND [address] [place] [phone] Type and screen (11/09/2018 12:55 AM CDT)Only the most recent of3 resultswithin the time period is included. Pathologist [facility] [place] ABO grouping O [facility] Rh type POS [facility] Antibody screen (gel) NEG [facility] Specimen Blood Performing Organization Address City/State/Zipcode Phone Number [facility] DEPARTMENT OF PATHOLOGY AND [address] [place], [place] [phone] Rheumatoid factor (11/09/2018 12:55 AM CDT) [facility] Rheumatoid factor 18 (H) 0 - 13 IU/mL [facility] Specimen Plasma specimen Performing Organization Address City/[facility]/Zipcode Phone Number [facility] DEPARTMENT OF PATHOLOGY AND [address] [place] [phone] [place] [phone] C3 complement component (11/09/2018 12:55 AM CDT) C3 complement 91 90 - 180 mg/dL [facility] Specimen Plasma specimen Performing Organization Address City/[facility] Phone Number [facility] DEPARTMENT OF PATHOLOGY AND [address] [place] [address] C4 complement component (11/09/2018 12:55 AM CDT) C4 complement 19 10 - 40 mg/dL [facility] Specimen Plasma specimen Performing Organization Address City/[facility] Phone Number [facility] DEPARTMENT OF PATHOLOGY AND [address] [place] [phone] ELKE (11/09/2018 12:55 AM CDT) [facility]KE screen Negative Negative [facility] Specimen Blood Performing Organization Address [facility] Phone Number [facility] DEPARTMENT OF PATHOLOGY AND [address] [place] [address] Protein, urine, random (11/07/2018 9:30 PM CDT) Protein, urine random 605 mg/dL [facility] Specimen Urine Performing Organization Address [facility] Phone Number [facility] DEPARTMENT OF PATHOLOGY AND [address] [place] [address] Creatinine level, urine, random (11/07/2018 9:30 PM CDT) Creatinine, urine, 305 mg/dL [facility] Specimen Urine Performing Organization Address [facility] Centercode Phone Number [facility] DEPARTMENT OF PATHOLOGY AND [address] [place] [address] POC glucose (11/07/2018 4:36 PM CDT)Only the most recent of4 resultswithin the time period is included. POC glucose 146 (H) 65 - 99 mg/dL [facility] Comment: [facility] Notified RN Meter ID: [id number] Plumbing Designer: real Rapp Specimen Performing Organization Address City/State/Zipcode Phone Number [facility] DEPARTMENT OF PATHOLOGY AND [address] [place] [address] GENOMIC MEDICINE [facility] [address] [place] [address] Echocardiogram complete w contrast and 3D if needed (11/07/2018 9:54 AM CDT) Specimen Narrative Performed At [facility] Echocardiography Report [id number] [facility] [address], [place] [address] Pat.Name:Dominic LANE.ID:[id number] .Date: 11/07/2018 Refer.MD:MARY JO BARRAGAN MD Exam Time: 9:07:00 AMStudy Type:Routine Echo Height:62inWeight: 157.67lb BSA: 1.73 m2 DOBAge:1945,73Y Sex: MALEHR:65 bpm Sonogrphr: Bren Sun. Stat.:Inpatient Room:[facility] Study Status:Final Echo Event ID:[id number] Order ID:[id number] Reason for Study:Atrial fibrillation History / Clinical:Atrial Fibrillation, Cancer, Hypertension Procedures:2D Echo, Colorflow Doppler, 3D Echo Race:S SUMMARY: LV EF is hyperdynamic. Estimated EF is >70%. 3 D LVEF=appx 70%; RV systolic function is normal. LV filling pressure is probably elevated; FINDINGS: LV: LV size is normal. There is severe concentric LV hypertrophy.LV EF is hyperdynamic. Difficult to assess regionalwall motion; however it appears grossly hyperdynamic.Estimated EF is >70%. 3 D LVEF=appx 70%; RV: RV size is normal. RV systolic function is normal. LA: LA volume is severely enlarged. RA: RA size is normal. AO: Aortic root diameter is upper limits of normal in size. MOLLY: No pericardial effusion. AV: Mild thickening and calcification of AV leaflets grossly (notwell visualized). MV: Mild thickening and calcification of mitral leaflets. Mild mitralannular calcification. PV: Pulmonic valve not well seen. TV: Tricuspid valve not well seen. Delgado: LV relaxation is impaired. LV filling pressure is probably elevated(sub optimal tissue Doppler data); Other:Insufficient TR jet to estimate PA systolic pressure. MEASUREMENTS: 2D Parasternal [place] LVOT 2 cmLA Ds5.9 cm LVIDd4.7 cmIndex2.7 cm/m Ao An2.2 cm LVIDs2.5 cmAo Rtd 3.8 cm Index2.2 cm/m LV%fs 46.8 % LV Mgyi114 g(122-174) IVSd 2 cmLVM Oemgt201.7 g/m2 LVPWd1.6 cmRWT0.7 LA Sng Plane LA Area 30.1 cm2(8.8-23.4) LA Vol 113.2 ml Index65.4 ml/m LA LngAx 6.6 cm RA Sng Plane RA Area 17.2 cm2(8.3-19.5) RA Vol46.2 ml Index26.7 ml/m RA LngAx 5.6 cm DOPPLER LVOT Stroke Vol LVOT 2 cmLVOT CO5.2 l/min LVOT TVI24.4 cmLVOT CI3 l/m/m2 LVOT Tm305 zbvuIQ34 bpm LVOT SV 76.5 ml Signed 11/07/2018 11:23 AM Nannette Avery MD Procedure Note Interface, Radiology Results In - 11/07/2018 11:23 AM CDT Echocardiography Report [id number] [address] Pat.Name: PAN LANE Pat.ID: [id number] .Date: 11/07/2018 Refer.MD: MARY JO BARRAGAN MD Exam Time: 9:07:00 AM Study Type:Routine Echo Height: 62in Weight: 157.67lb BSA: 1.73 m2 Age: 3 1945,73Y Sex: MALE HR: 65 bpm Sonogrphr: Thomas Gustafson [facility] Pat. Stat.:Inpatient Room: [facility] Study Status:Final Echo Event ID:[id number] Order ID: [id number] Reason for Study:Atrial fibrillation History / Clinical:Atrial Fibrillation, Cancer, Hypertension Procedures:2D Echo, Colorflow Doppler, 3D Echo Race: S SUMMARY: LV EF is hyperdynamic. Estimated EF is >70%. 3 D LVEF=appx 70%; RV systolic function is normal. LV filling pressure is probably elevated; FINDINGS: LV: LV size is normal. There is severe concentric LV hypertrophy. LV EF is hyperdynamic. Difficult to assess regional wall motion; however it appears grossly hyperdynamic. Estimated EF is >70%. 3 D LVEF=appx 70%; RV: RV size is normal. RV systolic function is normal. LA: LA volume is severely enlarged. RA: RA size is normal. AO: Aortic root diameter is upper limits of normal in size. MOLLY: No pericardial effusion. AV: Mild thickening and calcification of AV leaflets grossly (not well visualized). MV: Mild thickening and calcification of mitral leaflets. Mild mitral annular calcification. PV: Pulmonic valve not well seen. TV: Tricuspid valve not well seen. Delgado: LV relaxation is impaired. LV filling pressure is probably elevated (sub optimal tissue Doppler data); Other: Insufficient TR jet to estimate PA systolic pressure. MEASUREMENTS: 2D Parasternal [place] LVOT 2 cm LA Ds 5.9 cm LVIDd 4.7 cm Index 2.7 cm/m Ao An 2.2 cm LVIDs 2.5 cm Ao Rtd 3.8 cm Index 2.2 cm/m LV%fs 46.8 % LV Mass 406 g (122-174) IVSd 2 cm LVM Index 234.7 g/m2 LVPWd 1.6 cm RWT 0.7 LA Sng Plane LA Area 30.1 cm2 (8.8-23.4) LA Vol 113.2 ml Index 65.4 ml/m LA LngAx 6.6 cm RA Sng Plane RA Area 17.2 cm2 (8.3-19.5) RA Vol 46.2 ml Index 26.7 ml/m RA LngAx 5.6 cm DOPPLER LVOT Stroke Vol LVOT 2 cm LVOT CO 5.2 l/min LVOT TVI 24.4 cm LVOT CI 3 l/m/m2 LVOT Tm 305 msec HR 68 bpm LVOT SV 76.5 ml Signed 11/07/2018 11:23 AM Nannette Avery MD Performing Organization Address City/State/Zipcode Phone Number [facility] [address] [place] [address] CBC hemogram (11/07/2018 1:10 AM CDT) WBC 4.25 (L) 4.50 - 11.00 k/uL [facility] RBC 3.01 (L) 4.40 - 6.00 m/uL [facility] HGB 8.9 (L) 14.0 - 18.0 g/dL [facility] HCT 28.4 (L) 41.0 - 51.0 % [facility] MCV 94.4 82.0 - 100.0 fL [facility] MCH 29.6 27.0 - 34.0 pg [facility] MCHC 31.3 31.0 - 37.0 g/dL [facility] RDW - SD 53.2 37.0 - 55.0 fL [facility] MPV 10.4 8.8 - 13.2 fL [facility] Platelet count 166 150 - 400 k/uL [facility] Nucleated RBC 0.00 /100 WBC [facility] Specimen Blood Performing Organization Address City/[facility] Centercode Phone Number [facility] DEPARTMENT OF PATHOLOGY AND [address] [place] [phone] [place] [address] ECG 12 lead (11/06/2018 9:50 PM CDT) Ventricular rate 68 [facility] MUSE Atrial rate 68 [facility] MUSE QRSD interval 142 [facility] MUSE QT interval 430 [facility] MUSE QTC interval 457 [facility] MUSE P axis 1 -2 [facility] MUSE QRS axis 1 60 [facility] MUSE T wave axis 4 [facility] MUSE EKG impression Sinus rhythm with premature atrial complexes-Right bundle branch block-Abnormal ECG-In automated comparison with ECG of 19-NOV-2017 22:19, -premature atrial complexes are now present-Inverted T waves have replaced nonspecific T wave abnormality in [facility] MUSE Inferior leads-Nonspecific T wave abnormality now evident in Anterior leads- Specimen Narrative Performed At Performing Organization Address City/[facility] Cent[facility]ode Phone Number [facility] MUSE [address] [place] [address] Hepatitis B surface antigen (11/06/2018 5:55 PM CDT)Only the most recent of4 resultswithin the time period is included. Hepatitis B surface Non-reactive Non-reactive [facility] Specimen Blood Performing Organization Address City/[facility]/Zipcode Phone Number [facility] DEPARTMENT OF PATHOLOGY AND [address] [place] [phone] [address] XR Chest 1 Vw Portable (11/06/2018 3:59 PM CDT)Only the most recent of2 resultswithin the time period is included. Specimen Narrative Performed At XR CHEST 1 VW PORTABLE [facility] CLINICAL INDICATION:sobrecent pneumonia COMPARISON:01/10/2018 IMPRESSION: The heart is moderately enlarged with right IJ catheter in place with tip projecting at the caval atrial junction. Pulmonary vascularity is marginally increased without significant interstitial edema. There is no significant airspace consolidation. Trace left pleural fluid versus thickening noted. No pneumothorax. Bones are intact and unchanged. *[facility]-[id number] Procedure Note Interface, Radiology Results Incoming - 11/06/2018 4:05 PM CDT XR CHEST 1 VW PORTABLE CLINICAL INDICATION: sob recent pneumonia COMPARISON: 01/10/2018 IMPRESSION: The heart is moderately enlarged with right IJ catheter in place with tip projecting at the caval atrial junction. Pulmonary vascularity is marginally increased without significant interstitial edema. There is no significant airspace consolidation. Trace left pleural fluid versus thickening noted. No pneumothorax. Bones are intact and unchanged. *[facility]-[id number] Performing Organization Address City/State/Zipcode Phone Number [facility] [address] [place] [address] US Renal (11/06/2018 8:43 AM CDT) Specimen Narrative Performed At EXAMINATION:US RENAL [facility] CLINICAL HISTORY:SCAR COMPARISON:11/21/2017 TECHNIQUE:Ultrasound evaluation of the kidneys and bladder. IMPRESSION: 1.The right kidney measures 12.7 x 4.9 x 6.0 cm.The left kidney measures 12.8 x 4.9 x 4.8 cm.There is bilateral increased renal cortical echogenicity compatible with renal parenchymal disease. 2.No hydronephrosis or solid mass lesions. 1.0 x 0.7 x 1.0 cm simple right renal cyst is seen. A 1.6 x 1.2 x 1.9 cm simple cyst is present. Another 1.4 x 1.1 x 1.5 cm cyst is seen. 3.Bladder is not seen. [facility]-[id number] Procedure Note Interface, Radiology Results Incoming - 11/06/2018 9:11 AM CDT EXAMINATION: US RENAL CLINICAL HISTORY: SCAR COMPARISON: 11/21/2017 TECHNIQUE: Ultrasound evaluation of the kidneys and bladder. IMPRESSION: 1. The right kidney measures 12.7 x 4.9 x 6.0 cm. The left kidney measures 12.8 x 4.9 x 4.8 cm. There is bilateral increased renal cortical echogenicity compatible with renal parenchymal disease. 2. No hydronephrosis or solid mass lesions. 1.0 x 0.7 x 1.0 cm simple right renal cyst is seen. A 1.6 x 1.2 x 1.9 cm simple cyst is present. Another 1.4 x 1.1 x 1.5 cm cyst is seen. 3. Bladder is not seen. [id number] Performing Organization Address [facility] Centercotn Phone Number [address] [address] B natriuretic peptide (11/06/2018 7:00 AM CDT)Only the most recent of2 resultswithin the time period is included. BNP 506 (H) 0 - 100 pg/mL [facility] Specimen Blood Performing Organization Address [facility] Phone Number [facility] DEPARTMENT OF PATHOLOGY AND [address] [place] [phone] [address] Prepare RBC, 1 Units (07/18/2018 8:45 AM CHANNEL OPENER)Only the most recent of2 resultswithin the time period is included. Product name Apheresis Red Cell [facility] AS[facility] Unit number [id number] [facility] Product code [id number] [facility] Dispense status Transfused [facility] Blood expiration [id number] [facility] Blood type code 5100 [facility] Blood type O POSITIVE [facility] Specimen Performing Organization Address [facility] Phone Number [facility] DEPARTMENT OF PATHOLOGY AND [address] [place] [address] [address] Smear review (07/18/2018 5:15 AM CHANNEL OPENER) Platelet slide review Mindy adequate [facility] Anisocytosis Moderate [facility] Polychromasia Moderate [facility] Basophilic stippling Occasional [facility] Ovalocytes Moderate [facility] Specimen Performing Organization Address [facility] Phone Number [facility] DEPARTMENT OF PATHOLOGY AND [address] [place] [phone] [address] Urinalysis screen and microscopy, with reflex to culture (06/05/2018 3:30 PM CHANNEL OPENER) Specimen site Clean catch [facility] Color, UA Straw [facility] Appearance, UA Clear [facility] Specific gravity, 1.009 1.001 - 1.035 [facility] pH, UA 6.0 5.0 - 8.5 [facility] Protein, UA 2+ (A) Negative [facility] Glucose, UA Negative Negative [facility] Ketones, UA Negative Negative [facility] Bilirubin, UA Negative Negative [facility] Blood, UA Negative Negative [facility] Nitrite, UA Negative Negative [facility] Urobilinogen, UA <2.0 <2.0 [facility] Leukocyte esterase, Trace (A) Negative [facility] WBC, UA 17 (H) 0 - 1 /HPF [facility] RBC, UA 2 0 - 5 /HPF [facility] Bacteria, UA None seen None seen [facility] Yeast, UA None seen [facility] Yeast with None seen [facility] pseudohyphae, [facility] Hyaline casts, UA 1 /LPF [facility] Specimen Urine Performing Organization Address City/[facility] Phone Number [facility] DEPARTMENT OF PATHOLOGY AND [address] [place] [address] Gram stain (06/05/2018 3:30 PM CHANNEL OPENER) Gram stain result Rare WBC's [facility] No organisms seen HOSPITAL Comment: Specimen Information Specimen Source: Urine Specimen Site: Clean catch Specimen Urine Performing Organization Address City/State/Zipcode Phone Number [facility] DEPARTMENT OF PATHOLOGY AND [address] [place] [phone] Urine culture (06/05/2018 3:30 PM CHANNEL OPENER) Pathologist [facility] [place] Urine culture susceptibility testing.Culture is being reincubated for [facility] isolate additional growth. HOSPITAL Mixed krystal <=10-3 col/cc (A) Comment: Specimen Information Specimen Source: Urine Specimen Site: Clean catch Urine culture Enterococcus faecalis [facility] isolate 10-5 cfu/ml HOSPITAL The performance characteristics of this assay on this isolate were validated by the Microbiology Laboratory at [facility].This source has not been approved [...] EDD 1 mcg/mL: Susceptible Performing Organization Address City/[facility] Phone Number [facility] DEPARTMENT OF PATHOLOGY AND [address] [place] [address] [employer] [address] [address] Transfuse RBC (01/11/2018 10:03 AM CDT)Only the most recent of2 resultswithin the time period is included.Estimated GFR (01/11/2018 5:11 AM CDT)Only the most recent of2 resultswithin the time period is included. GFR Non Af Amer 25 (A) mL/min/1.73 [facility] DEPARTMENT OF m2 PATHOLOGY AND GENOMIC MEDICINE GFR Af Amer 31 (A) mL/min/1.73 [facility] DEPARTMENT OF Comment: m2 PATHOLOGY AND Chronic kidney disease: <60 mL/min/1.73m2 GENOMIC MEDICINE Kidney failure: <15 mL/min/1.73m2 The estimated [...] Americans. Specimen Plasma specimen Performing Organization Address City/[facility]ode Phone Number [facility] DEPARTMENT OF PATHOLOGY AND [address] [place], [place] [id number] [employer] [facility] after 12/11/2017 Advance Directives Patient has advance care planning documents on file. For more information, please contact:[place] [address]
--- OUTSIDE RECORDS SUMMARY | 2018-12-12 07:20 | XMS REPORT ---
:1945 Author Organization [facility] Address [address] [place] [address] Dr. Pham. [address] [place] [id number] Care Team Providers Name Role Phone Unavailable Unavailable Unavailable Problems This patient has no known problems. Allergies, Adverse Reactions, Alerts This patient has no known allergies or adverse reactions. Medications This patient has no known medications.
[2018-12-12] MEDS ORDERED: NA CHLORIDE 0.9% 0 ML ONE (07:51)
[2018-12-12] MEDS ORDERED: NA CHLORIDE 0.9% 500 ML ONE ×2 (07:52→10:57)
[2018-12-12 07:59] LABS: Hematocrit 20.4 % (39.6-49.0)
[2018-12-12 08:43] VITALS: BMI 30.7
[2018-12-12 12:12] VITALS: BP 135/64; TEMP 98.1; O2SAT 96
[2018-12-12 14:47] LABS: Hematocrit 27.5 % (39.6-49.0)
== END 2018-12-12 14:40 | disposition home or self-care (01) ==
LOC: DS 07:16
PROVIDERS: ATTEND Internal Medicine
DX: N17.9 Acute kidney failure, unspecified (principal)
CPT/HCPCS: 36415; 86900; 86850; 86901; 85018 ×2; 85014 ×2; 36430; P9016 ×2

== ENCOUNTER 2019-05-16 10:35 | Day surgery (SDC) | payer OTHER ==
[2019-05-15 16:20] LABS: Absolute Lymphocytes (CBC) 0.8 K/uL (0.7-4.9); Basophils % 0.8 % (0-1.3); Hematocrit 33.6 % (39.6-49.0); Lymphocytes % 15.7 % (15.3-44.8); RBC Red Blood Cell Count 3.76 M/uL (4.33-5.43)
--- NOTE | 2019-05-15 16:20 | RAD REPORT ---
EXAM DESCRIPTION: RAD - Chest Pa And Lat (2 Views) - 05/15/2019 3:51 pm CLINICAL HISTORY: preop, patient pending removal of Tessio catheter COMPARISON: October 2018 TECHNIQUE: PA and lateral views of the chest were obtained. FINDINGS: The lungs are clear of a focal infiltrate or mass. Right Tessio catheter remains in place. No failure or volume overload. Old right-sided chest trauma changes are present. Heart size is nor mal and central vasculature is within normal limits. No pleural effusion or pneumothorax seen. No a cute bony finding noted. No aortic abnormality. IMPRESSION: No acute cardiopulmonary process.
[2019-05-15 16:30] LABS: Potassium 4.2 mmol/L (3.5-5.1)
--- NOTE | 2019-05-16 06:36 | EKG ---
Test Date: 2019-05-15 Test Time: 16:39:06 [place] Worker: LAURE MEASUREMENT RESULTS: Intervals: Rate: 88 MT: 112 QRSD: 142 QT: 406 QTc: 491 [place]: P: 11 MT: 112 QRS: 79 T: 42 INTERPRETIVE STATEMENTS: Sinus rhythm with sinus arrhythmia with occasional premature supraventricular complexes Right bundle branch block Abnormal ECG Compared to ECG 11/05/2018 03:04:18 no significant change from previous ECG Electronically Signed On 05-16-19 06:35:52 CYLINDER SANDER OPERATOR by Darius Fleming
[2019-05-16] MEDS ORDERED: CEFAZOLIN/SWI 1gm 1 GM/10 ML SYR ONE (10:47)
[2019-05-16] MEDS ORDERED: Ringers Lactate 1,000 ML IV ONE (10:47)
[2019-05-16] MEDS ORDERED: LIDOCAINE 1% 20 ML MDV ONE (11:10)
[2019-05-16] MEDS ORDERED: FENTANYL CITR 100 MCG/2 ML ONE ×2 (11:35→12:44)
[2019-05-16] MEDS ORDERED: MIDAZOLAM HCL 2 MG/2 ML INJ ONE ×2 (11:35→12:44)
[2019-05-16] MEDS ORDERED: LIDOCAINE 2% MPF 5 ML VIAL ONE ×2 (11:35→12:44)
[2019-05-16] MEDS ORDERED: PROPOFOL 200 MG/20 ML VIAL IV ONE ×3 (11:35→12:44)
--- NOTE | 2019-05-16 12:17 | P.BOP ---
Preoperative diagnosis: renal insufficiency Postoperative diagnosis: same Primary procedure: REmoval of cuffed hemodyalisis catheter Estimated blood loss: <5cc Specimen: intact portacath splitted in two Findings: as above Anesthesia: MAC Transferred to: Recovery Room Condition: Good
[2019-05-16 13:47] VITALS: BP 111/64; TEMP 97.1; O2SAT 97
--- NOTE | 2019-05-17 02:59 | OP ---
Date of Procedure: 05/16/2019 Surgeon: Willi Schwartz MD Preoperative Diagnosis: Renal insufficiency. Postoperative Diagnosis: Renal insufficiency. Procedure Performed: Removal of a cuffed hemodialysis catheter. Specimen: Intact Port-A-Cath. I split the catheter in 2. Anesthesia: MAC plus local. Indications: This is the case of a 73-year-old patient used to be on dialysis, not anymore, he need the cuffed hemodialysis catheter removed. The benefits, alternatives, and risks of removal were full y explained to the patient, which include but are not limited to infection, bleeding, damage to adjac ent structures, anesthesia complication, PE, MA, and even . He also understands this may not re lieve symptoms, he might need more than one surgical intervention. He understood, signed a consent. Description Of Procedure: Patient was brought to the operating room, placed in supine position. Ane sthesia was done without complication. Right chest was prepped and draped in sterile fashion. We pa lpated the cuff on the middle of the area between the neck incision and the chest incision. Made an incision in that area. Released the cuff from the subcutaneous tissue, hold that cuff in that area. Split that in half and holding the proximal and distal and removed the insertion end, which is the d istal end intact and then removed the proximal, which is the catheter 1 going outside the chest also intact. Area was irrigated. 3-0 chromic was used for the subcutaneous tissue near the neck area and the other incision was left to close by secondary intention. Sponge count and instrument counts wer e correct. Patient tolerated the procedure well. Patient was sent to recovery in stable condition d ictation. Diagnosis: Renal insufficiency. Procedure: Removal of the cuffed hemodialysis catheter from the right chest. Disposition: Home. Activity: As tolerated. No heavy lifting. Followup: Follow up in my office in 1 week. Call for appointment [phone]. Keep area dry for 48 ho urs, then may shower. Then may put triple antibiotics over the area. SABRINA/BATSHEVAL Voice ID: [id number] Report ID: [id number]
--- OUTSIDE RECORDS SUMMARY | 2019-05-20 23:51 | XMS REPORT ---
:1945 Author Organization [facility] Address [address] [place] [address] Dr. Moffett [address] [place] [id number] Care Team Providers Name Role Phone Unavailable Unavailable Unavailable Problems This patient has no known problems. Allergies, Adverse Reactions, Alerts This patient has no known allergies or adverse reactions. Medications This patient has no known medications.
--- OUTSIDE RECORDS SUMMARY | 2019-05-21 00:52 | XMS REPORT ---
:1945 [facility] Address [address] [place] [address] Dr. Moffett [address] [place] [id number] Care Team Providers Name Role Phone Unavailable Unavailable Unavailable Problems This patient has no known problems. Allergies, Adverse Reactions, Alerts This patient has no known allergies or adverse reactions. Medications This patient has no known medications.
== END 2019-05-16 13:30 | disposition home or self-care (01) ==
LOC: OR 10:35
PROVIDERS: ATTEND Surgery
PROC: 0JPT3WZ Removal of Totally Implantable Vascular Access Device from Trunk Subcutaneous Tissue and Fascia, Percutaneous Approach (ICD-10-PCS; principal; 2019-05-16 12:00)
DX: Z45.2 Encounter for adjustment and management of vascular access device (principal); I12.0 Hypertensive chronic kidney disease with stage 5 chronic kidney disease or end stage renal disease; N18.6 End stage renal disease; J44.9 Chronic obstructive pulmonary disease, unspecified; I51.9 Heart disease, unspecified; Z85.9 Personal history of malignant neoplasm, unspecified; Z90.49 Acquired absence of other specified parts of digestive tract; Z80.9 Family history of malignant neoplasm, unspecified; Z83.3 Family history of diabetes mellitus; Z82.49 Family history of ischemic heart disease and other diseases of the circulatory system
CPT/HCPCS: 36590; 93005; 85025; 80048; 36415; 88300; 71046; J2704 ×2; J2250; J3010; J0690; J7120

== ENCOUNTER 2019-08-08 07:16 | Day surgery (SDC) | payer OTHER ==
--- OUTSIDE RECORDS SUMMARY | 2019-08-08 07:19 | XMS REPORT ---
:1945 Author Organization [facility] Address [address] [place] [address] Dr. Pham. [address] [place] [id number] Care Team Providers Name Role Phone Unavailable Unavailable Unavailable Problems This patient has no known problems. Allergies, Adverse Reactions, Alerts This patient has no known allergies or adverse reactions. Medications This patient has no known medications.
[2019-08-08 07:56] VITALS: BP 107/49; TEMP 98.2; O2SAT 100
[2019-08-08] MEDS ORDERED: NA CHLORIDE 0.9% 500 ML ONE (08:17)
[2019-08-08 10:36] VITALS: BMI 29.9
[2019-08-08] MEDS ORDERED: FUROSEMIDE 40 MG/4 ML VIAL ONE (11:12)
[2019-08-08 15:43] LABS: Hematocrit 25.1 % (39.6-49.0)
== END 2019-08-08 16:30 | disposition home or self-care (01) ==
LOC: DS 07:16
PROVIDERS: ATTEND Internal Medicine
DX: N18.5 Chronic kidney disease, stage 5 (principal); D63.1 Anemia in chronic kidney disease
CPT/HCPCS: 36415; 86900; 86850; 86901; 85018; 85014; 36430; J1940; P9016 ×2; J7030

== ENCOUNTER 2020-01-15 10:52 | Inpatient (IN) | payer OTHER ==
[2020-01-15 12:07] LABS: Absolute Lymphocytes (CBC) 0.6 K/uL (0.7-4.9); Basophils % 0.7 % (0-1.3); Lymphocytes % 12.2 % (15.3-44.8); MPV 8.9 fL (7.6-11.3); RBC Red Blood Cell Count 2.02 M/uL (4.33-5.43)
[2020-01-15 12:26] LABS: Hematocrit 18.4 % (39.6-49.0)
[2020-01-15 12:33] LABS: Albumin 2.9 g/dL (3.4-5.0); Bilirubin Total 0.2 mg/dL (0.2-1.0); Potassium 6.9 mmol/L (3.5-5.1); Protein, Total 6.3 g/dL (6.4-8.2); Troponin (Emerg Dept Use Only) 0.02 ng/mL (0.0-0.045)
--- NOTE | 2020-01-15 13:05 | ER ---
Nurse's Notes [facility] Name: Garth Lane Age: 74 yrs Sex: Male : 1945 Arrival Date: 01/15/2020 Time: 10:54 Bed 19 Private MD: Ousmane Mccullough R; Alroumoh, Manaf Diagnosis: Acute on chronic renal failure;Hyperkalemia;Acute anemia Presentation: 01/14 11:23 Chief complaint: Patient states: had ;abs drawn yesterday, was called today and told he iw has a low hemoglobin. Coronavirus screen: Proceed with normal triage. Patient denies a cough. Patient denies shortness of breath or difficulty breathing. Patient denies measured and/or subjective temperature greater than 100.4F prior to today's visit. Patient denies travel on a cruise ship or to a country the [facility] currently lists as an affected area. Patient denies contact with known and/or suspected case of COVID-19. Ebola Screen: Patient negative for fever greater than or equal to 101.5 degrees Fahrenheit, and additional compatible Ebola Virus Disease symptoms Patient denies exposure to infectious person. Patient denies travel to an Ebola-affected area in the 21 days before illness onset. No symptoms or risks identified at this time. Initial Sepsis Screen: Does the patient meet any 2 criteria? No. Patient's initial sepsis screen is negative. Does the patient have a suspected source of infection? No. Patient's initial sepsis screen is negative. Risk Assessment: Do you want to hurt yourself or someone else? Patient reports no desire to harm self or others. Onset of symptoms was January 15, 2020. 11:23 Method Of Arrival: Ambulatory iw 11:23 Acuity: MARIO 3 iw Historical: - Allergies: 11:28 No Known Allergies; iw - Home Meds: :28 tamsulosin 0.4 mg oral cp24 1 cap once daily [Active]; lisinopril 2.5 mg Oral tab 1 tab iw once daily [Active]; furosemide 80 mg Oral tab 1 tab once daily [Active]; allopurinol 100 mg Oral tab [Active]; Bactrim DS Oral [Active]; aspirin 81 mg Oral TbEC 1 tab once daily [Active]; - PMHx: 11:28 GERD; Hypertension; Prostate Cancer; remission now; punctured lung, fx hip, fx ribs, iw skull fx after fall 2011.; - PSHx: 11:28 prostate radiation, prostate sx-green light; Cholecystectomy; r hip; iw - Immunization history:: Adult Immunizations up to date. - Social history:: Smoking status: Patient denies any tobacco usage or history of. Screenin:15 Abuse screen: Denies threats or abuse. Denies injuries from another. Nutritional ca1 screening: No deficits noted. Tuberculosis screening: No symptoms or risk factors identified. Fall Risk IV access (20 points). Assessment: 11:15 General: Appears in no apparent distress. comfortable, Behavior is calm, cooperative, ca1 appropriate for age. Pain: Denies pain. Neuro: Level of Consciousness is awake, alert, obeys commands, Oriented to person, place, time, situation, Appropriate for age. Cardiovascular: Heart tones S1 S2 present Capillary refill < 3 seconds Patient's skin is warm and dry. Respiratory: Airway is patent Respiratory effort is even, unlabored, Respiratory pattern is regular, symmetrical, Breath sounds are clear bilaterally. GI: Abdomen is round non-distended, Bowel sounds present X 4 quads. Abd is soft and non tender X 4 quads. : No signs and/or symptoms were reported regarding the genitourinary system. EENT: No signs and/or symptoms were reported regarding the EENT system. Derm: Skin is intact, is healthy with good turgor, Skin is dry, Skin is pale, Skin temperature is warm. Musculoskeletal: Circulation, motion, and sensation intact. Capillary refill < 3 seconds. 12:15 Reassessment: Patient appears in no apparent distress at this time. Patient and/or ca1 family updated on plan of care and expected duration. Pain level reassessed. Patient is alert, oriented x 3, equal unlabored respirations, skin warm/dry/pink. 13:12 Reassessment: Patient appears in no apparent distress at this time. Patient and/or ca1 family updated on plan of care and expected duration. Pain level reassessed. Patient is alert, oriented x 3, equal unlabored respirations, skin warm/dry/pink. Hospitalist at bedside. 14:10 Reassessment: Patient appears in no apparent distress at this time. Pt. is receiving a rb1 unit of blood; tolerating it well. Nurse is at the bedside. 14:33 Reassessment: Called report to RIO Pedroza. Information from the SBAR was given, all rb1 questions asked and answered. Vital Signs: 11:23 BP 117 / 54; Pulse 72; Resp 16; Temp 98.4; Pulse Ox 95% on R/A; iw 12:15 BP 108 / 52; Pulse 59; Resp 15 S; Pulse Ox 100% on R/A; ca1 12:53 BP 115 / 56; Pulse 62; Resp 17; Temp 98.2(O); Pulse Ox 100% on R/A; mh5 14:00 BP 109 / 47; Pulse 61; Resp 15; Pulse Ox 100% ; rb1 ED Course: 10:45 Missed attempt(s): 18 gauge in left in right antecubital area. mh5 10:54 Patient arrived in ED. as 10:54 Jaqueline Diaz MD is Private Physician. as 10:54 Ousmane Mccullough MD is Private Physician. as 10:58 Kameron Bustamante MD is Attending Physician. ps1 11:13 Rosanna Chowdary RN is Primary Nurse. ca1 11:15 Patient has correct armband on for positive identification. Placed in gown. Bed in low ca1 position. Call light in reach. Side rails up X 1. Pulse ox on. NIBP on. Warm blanket given. 11:15 Arm band placed on. ca1 11:24 Triage completed. iw 11:51 No provider procedures requiring assistance completed. Initial lab(s) drawn, by pa, ca1 sent to lab. Inserted saline lock: 18 gauge in left antecubital area, using aseptic technique. Blood collected. 12:43 Inserted saline lock: 22 gauge in right antecubital area, using aseptic technique. ca1 12:54 ring conductor on. mh5 13:00 Ousmane Mccullough MD is Hospitalizing Provider. ps1 13:02 Hospitalizing Provider role handed off by Ousmane Mccullough MD ps1 13:02 Alex Galicia DO is Hospitalizing Provider. ps1 13:08 Consent for blood and/or blood product transfusion explained by physician. ca1 14:00 Report given to RIO Bernard. ca1 15:00 Patient admitted, IV remains in place. rb1 Administered Medications: No medications were administered Outcome: 13:04 Decision to Hospitalize by Provider. ps1 15:00 Patient left the ED. rb1 15:00 Admitted to Med/surg accompanied by nurse, accompanied by tech, via wheelchair, room rb1 230, with chart, Report called to RIO Pedroza 15:00 Condition: stable 15:00 Instructed on the need for admit. Signatures: Patricia Schwartz Irene, RN RN iw Joana Thompson RN RN rb1 [facility] Kameron Bustamante MD MD ps1 Rosanna Chowdary RN RN ca1 Corrections: (The following items were deleted from the chart) 15:28 15:24 Patient left the ED. rb1 rb1
--- NOTE | 2020-01-15 13:05 | EDPHYS ---
Physician Documentation [facility] Name: Garth Lane Age: 74 yrs Sex: Male : 1945 Arrival Date: 01/15/2020 Time: 10:54 Bed 19 Private MD: Ousmane Mccullough R; Alroumoh, Manaf ED Physician Kameron Bustamante HPI: 01/14 11:07 This 74 yrs old Male presents to ER via Unassigned with complaints of Abnormal ps1 Lab Results - hemoglobin. 11:07 States that he has renal dysfunction and had OP labs which reported Hgb \R\5. States that ps1 he had no other symptoms. Sent in for blood transfusion. No signs of COVID. No lightheaded, presyncope, pallor, chest pain, SOB. . Historical: - Allergies: 11:28 No Known Allergies; iw - Home Meds: 11:28 tamsulosin 0.4 mg oral cp24 1 cap once daily [Active]; lisinopril 2.5 mg Oral tab 1 tab iw once daily [Active]; furosemide 80 mg Oral tab 1 tab once daily [Active]; allopurinol 100 mg Oral tab [Active]; Bactrim DS Oral [Active]; aspirin 81 mg Oral TbEC 1 tab once daily [Active]; - PMHx: 11:28 GERD; Hypertension; Prostate Cancer; remission now; punctured lung, fx hip, fx ribs, iw skull fx after fall 2011.; - PSHx: 11:28 prostate radiation, prostate sx-green light; Cholecystectomy; r hip; iw - Immunization history:: Adult Immunizations up to date. - Social history:: Smoking status: Patient denies any tobacco usage or history of. ROS: 11:38 Constitutional: Negative for fever, chills, and weight loss, Neck: Negative for injury, ps1 pain, and swelling, Cardiovascular: Negative for chest pain, palpitations, and edema, Respiratory: Negative for shortness of breath, cough, wheezing, and pleuritic chest pain, Abdomen/GI: Negative for abdominal pain, nausea, vomiting, diarrhea, and constipation, MS/Extremity: Negative for injury and deformity, Skin: Negative for injury, rash, and discoloration, Neuro: Negative for headache, weakness, numbness, tingling, and seizure. Exam: 11:38 Constitutional: This is a well developed, well nourished patient who is awake, alert, ps1 and in no acute distress. Head/Face: Normocephalic, atraumatic. Cardiovascular: Regular rate and rhythm. No gallops, murmurs, or rubs. Normal PMI, no JVD. No pulse deficits. Respiratory: Lungs have equal breath sounds bilaterally, clear to auscultation and percussion. No rales, rhonchi or wheezes noted. No increased work of breathing, no retractions or nasal flaring. Abdomen/GI: Soft, non-tender, with normal bowel sounds. No distension or tympany. No guarding or rebound. No evidence of tenderness throughout. Skin: Warm, dry with normal turgor. Normal color with no rashes, no lesions, and no evidence of cellulitis. MS/ Extremity: Pulses equal, no cyanosis. Neurovascular intact. Full, normal range of motion. Neuro: Awake and alert, GCS 15, oriented to person, place, time, and situation. Cranial nerves II-XII grossly intact. Sensory grossly intact. Vital Signs: 11:23 BP 117 / 54; Pulse 72; Resp 16; Temp 98.4; Pulse Ox 95% on R/A; iw 12:15 BP 108 / 52; Pulse 59; Resp 15 S; Pulse Ox 100% on R/A; ca1 12:53 BP 115 / 56; Pulse 62; Resp 17; Temp 98.2(O); Pulse Ox 100% on R/A; mh5 14:00 BP 109 / 47; Pulse 61; Resp 15; Pulse Ox 100% ; rb1 MDM: 12:17 Patient medically screened. ps1 01/14 11:06 Order name: CBC with Diff; Complete Time: 12:29 ps1 01/14 12:29 Interpretation: Abnormal: HGB 5.6; HCT 18.4. ps1 01/14 11:06 Order name: CMP; Complete Time: 12:39 ps1 01/14 11:06 Order name: Troponin (emerg Dept Use Only); Complete Time: 12:39 ps1 01/14 11:06 Order name: Type And Screen ps1 01/14 12:26 Order name: Transfuse; Complete Time: 14:30 ps1 01/14 13:14 Order name: Packed RBC Leukored EDOK 01/14 12:33 Order name: EKG - Nurse/Tech; Complete Time: 12:44 ps1 Administered Medications: No medications were administered Disposition: 01/15/20 13:04 Hospitalization ordered by Alex Galicia for Inpatient Admission. Preliminary diagnosis are Acute on chronic renal failure, Hyperkalemia, Acute anemia. - Bed requested for Telemetry/MedSurg (Inpatient). - Status is Inpatient Admission. rb1 - Condition is Stable. - Problem is an acute exacerbation. - Symptoms have worsened. Signatures: Dispatcher [employer] EDMS Ana Beal RN RN kl Gloria Mccollum RN RN iw Joana Thompson RN RN rb1 Kameron Bustamante MD MD ps1 Rosanna Chowdary RN RN ca1 Corrections: (The following items were deleted from the chart) 12:29 12:29 HGB 5.6; HCT 18.4. ps1 ps1 14:22 13:04 Hospitalization Ordered by Alex Galicia DO for Inpatient Admission. Preliminary kl diagnosis is Acute on chronic renal failure; Hyperkalemia; Acute anemia. Bed requested for Telemetry/MedSurg (Inpatient). Status is Inpatient Admission. Condition is Stable. Problem is an acute exacerbation. Symptoms have worsened. ps1 15:24 14:22 01/15/2020 13:04 Hospitalization Ordered by Alex Galicia DO for Inpatient rb1 Admission. Preliminary diagnosis is Acute on chronic renal failure; Hyperkalemia; Acute anemia. Bed requested for Telemetry/MedSurg (Inpatient). Status is Inpatient Admission. Condition is Stable. Problem is an acute exacerbation. Symptoms have worsened. kl
[2020-01-15] MEDS ORDERED: NA CHLORIDE 0.9% 250 ML ONE (13:33)
[2020-01-15] MEDS ORDERED: D50W 25 GM/50 ML SYRINGE/VIAL IV ONE ×2 (14:32→22:18)
[2020-01-15] MEDS ORDERED: ALBUTEROL 2.5 MG/3 ML NEB SOL NEB ONE (14:32)
[2020-01-15] MEDS ORDERED: ONDANSETRON 4 MG/2 ML VIAL IV PRN (14:32)
[2020-01-15] MEDS ORDERED: INSULIN -REGULAR HUMAN 50 UNIT/0.5 ML ML IV ONE ×2 (14:32→22:19)
[2020-01-15] MEDS ORDERED: NA CHLORIDE 0.9% 500 ML IV ONE (14:32)
[2020-01-15] MEDS ORDERED: BUMETANIDE 1 MG/4 ML VIAL IV ONE (14:32)
[2020-01-15] MEDS ORDERED: ACETAMINOPHEN 500 MG TAB PO PRN (14:32)
--- NOTE | 2020-01-15 14:42 | P.HP ---
Certification for Inpatient Patient admitted to: Inpatient With expected LOS: >2 Midnights Patient will require the following post-hospital care: None Practitioner: I am a practitioner with admitting privileges, knowledge of patient current condition, hospital course, and medical plan of care. Services: Services provided to patient in accordance with Admission requirements found in Title 42 Section 412.3 of the Code of Federal Regulations <BeckaerinJose - Last Filed: 01/15/20 14:30> Patient admitted to: Inpatient With expected LOS: >2 Midnights <Alex Galicia - Last Filed: 01/15/20 16:31> Patient History Date of Service: 01/15/20 Primary Care Provider: Jamel Reason for admission: ARF, hyperkalemia, anemia History of Present Illness: 74-year-old male with medical history of autoimmune vasculitis, chronic kidney disease, hypertension, congestive heart failure presented to the emergency department after obtaining an outpatient lab and being found to be significantly anemic. Patient had CBC and BMP in the emergency department which revealed that not only is patient anemic with hemoglobin of 5.8 but he has acute renal failure. Patient was also found to have a potassium level of 6.9. Patient was asymptomatic without EKG changes in the emergency department. Patient was given 1 unit packed red blood cells in the emergency department as well. At this evaluation ED provider wishes to admit patient for further evalua tion and management. When I saw the patient in the emergency department he . Did not appear in any distress, denied any pain. The patient was awake, alert, oriented x3. Patient does not appear septic at this time. Patient will be admitted for further evaluation and management. Home medications list reviewed: Yes - Past Medical/Surgical History Diabetic: No -: Hypertension -: Benign prostatic hypertrophy -: gout -: prostate CA -: CHF -: Autoimmune vasculitis -: Chronic kidney disease -: [place] -: R hip sx with pins -: prostate surgery Psychosocial/ Personal History: Patient lives at home with his . - Family History Mother -: Heart disease, Diabetes Brother -: Hypertension, Diabetes Sister -: Hypertension, Cancer - Social History Alcohol use: Yes CD- Drugs: No Caffeine use: No Place of Residence: Home <Jose Herrera - Last Filed: 01/15/20 14:30> Date of Service: 01/15/20 History of Present Illness: Correction on nurse practitioner note. Patient is alive. Patient stable. Patient will get transfuse. Correction for elevated potassium to be done. Will consult GI. Nephrology consulted. Home medications list reviewed: Yes - Past Medical/Surgical History -: Gout -: Prostate cancer - Social History Smoking Status: Unknown if ever smoked <Alex Galicia - Last Filed: 01/15/20 16:31> Allergies No Known Allergies Allergy (Verified 05/16/19 10:43) Home Medications: Tamsulosin HCl [Flomax] 0.4 mg PO DAILY 10/15/15 Furosemide [Lasix] 80 mg PO DAILY 10/25/18 allopurinoL [Zyloprim] 100 mg PO DAILY 05/15/19 Smz./Tmp. [Bactrim Ds 800 MG/160 MG] 1 tab PO M,W,F 05/16/19 Lisinopril [Zestril] 2.5 mg PO DAILY 06/26/19 Aspirin 81 mg PO DAILY 08/08/19 levoFLOXacin [Levaquin] 250 mg PO DAILY 08/08/19 metroNIDAZOLE [Flagyl*] 1 tab PO BID 08/08/19 Review of Systems General: Unremarkable Eyes: Unremarkable ENT: Unremarkable Respiratory: Unremarkable Cardiovascular: Unremarkable Gastrointestinal: Unremarkable Genitourinary: Unremarkable Musculoskeletal: Unremarkable Integumentary: Unremarkable Neurological: Unremarkable <Jose Herrera - Last Filed: 01/15/20 14:30> Physical Examination - Physical Exam General: Alert, In no apparent distress, Oriented x3 HEENT: Atraumatic, Normocephalic Neck: Supple Respiratory: Clear to auscultation bilaterally, Normal air movement Cardiovascular: No edema, Normal S1 S2 Capillary refill: <2 Seconds Gastrointestinal: Normal bowel sounds, Soft and benign, Distended Musculoskeletal: No contractures, No erythema, No tenderness Integumentary: No significant lesion, No tenderness/swelling, No erythema Neurological: Normal speech, Normal strength at 5/5 x4 extr, Normal tone, Sensation intact, Normal affect - Studies Laboratory Data (last 24 hrs) 01/15/20 11:48: Sodium 143, Potassium 6.9 H*, BUN 123 H, Creatinine 3.77 H, Glucose 123 H, Total Bilirubin 0.2, AST 13 L, ALT 16, Alkaline Phosphatase 99 01/15/20 11:48: WBC 5.1, Hgb 5.6 L*, Hct 18.4 L*, Plt Count 223 <Jose Herrera - Last Filed: 01/15/20 14:30> - Studies Laboratory Data (last 24 hrs) 01/15/20 11:48: Uric Acid 7.4 H D 01/15/20 11:48: Sodium 143, Potassium 6.9 H*, BUN 123 H, Creatinine 3.77 H, Glucose 123 H, Total Bilirubin 0.2, AST 13 L, ALT 16, Alkaline Phosphatase 99 01/15/20 11:48: WBC 5.1, Hgb 5.6 L*, Hct 18.4 L*, Plt Count 223 <Alex Galicia - Last Filed: 01/15/20 16:31> Assessment and Plan - Plan Assessment Acute on chronic renal failure with history of autoimmune vasculitis complicated with hyperkalemia Anemia of chronic disease CHF Hypertension Gout Plan Acute on chronic renal failure with history of autoimmune vasculitis complicated with hyperkalemia: Patient remained on telemetry throughout this hospitalization, nephrology has been consulted on this case while patient was in the emergency department. Patient is to receive albuterol, insulin, dextrose, and normal saline bolus, Bumex cocktail to help lower potassium. Will recheck potassium 1 hr after. Will continue to monitor patient's chemistries daily. Will obtain uric acid and CK levels. Appreciate further input from nephrology. Anemia of chronic disease: Patient transfused 1 unit packed red blood cells in the emergency department. As patient has history of CHF and is in acute renal failure this will be managed in conjunction with nephrology. Will continue to monitor patient's CBC daily. CHF: Will hold patient's Lasix at this time due to acute renal failure. Will work in conjunction with nephrology to determine patient's need for diuresis after correction of potassium level and blood transfusion. The patient is not in any respiratory distress at this time , nor does he have any significant lower extremity edema. Hypertension: Will hold patient's lisinopril at this time due to acute renal failure. Will provide patient with p.r.n. hydralazine at this time. Gout: Will hold patient's allopurinol at this time. Discharge Plan: Home Plan to discharge in: Greater than 2 days - Advance Directives Does patient have a Living Will: Yes Does patient have a Durable POA for Healthcare: Yes - Code Status/Comfort Care Code Status Assessed: Yes (Patient is full code) Critical Care: No Time Spent Managing Pts Care (In Minutes): 55 <Jose Herrera - Last Filed: 01/15/20 14:30> - Plan Case discussed at length with nurse practitioner. Agree with assessment, evaluation and plan of care. Case also discuss with nephrology. Hyperkalemia to be treated. Nephrology to further evaluate. Patient also with anemia. Guaiac positive noted. Will consult GI to further evaluate. Will transfuse blo od. Maintain hemoglobin above 7.0. Patient will likely require GI evaluation with EGD. Lisinopril held. Impression/plan: Acute on chronic renal failure stage 4 with hyperkalemia complicated with h istory of autoimmune vasculitis Anemia of chronic disease with positive guaiac, possible underlying GI bleed Chronic diastolic CHF likely diastolic Hypertension Gout <Alex Galicia - Last Filed: 01/15/20 16:31>
[2020-01-15 16:00] LABS: Uric Acid 7.4 mg/dL (3.5-7.2)
[2020-01-15 16:42] LABS: Ferritin 8.2 ng/mL (26-388)
[2020-01-15 17:07] VITALS: BMI 32.0
[2020-01-15 18:24] LABS: Potassium 5.8 mmol/L (3.5-5.1)
[2020-01-15 18:30] LABS: RBC Red Blood Cell Count 2.65 M/uL (4.33-5.43)
[2020-01-15 18:36] LABS: Bilirubin Direct < 0.1 mg/dL (0-0.2); Folic Acid, (Folate) 13.6 ng/mL (3.1-17.5)
[2020-01-15 18:38] LABS: Hematocrit 23.9 % (39.6-49.0)
[2020-01-15] MEDS: NACHLORIDE 0.45% 1,000 ML with NA BICARB 8.4% 75 MEQ IV SCH ×2 (18:53)
[2020-01-15] MEDS ORDERED: HEPARIN 5000 UNIT/ML 1 ML VIAL SQ SCH (21:00)
[2020-01-15] MEDS: PANTOPRAZOLE 40 MG INJ IVP SCH (21:35)
--- OUTSIDE RECORDS SUMMARY | 2020-01-15 22:06 | XMS REPORT | Clinical Summary ---
:1945 Author Organization [facility] Address [address] [place] [address] Care Team Providers Name Role Phone Asked, No Pcp Primary Care Provider Unavailable Allergies No Known Allergies Medications Medication Sig Dispensed Refills Start Date End Date Status blood-glucose Use as 1 each 0 11/25/2017 Activ e meter (glucose instructed monitoring kit) kit tamsulosin Take 0.4 mg by 0 Acti ve (FLOMAX) 0.4 mg mouth daily. capsule,extended release 24hr pantoprazole Take 40 mg by 0 Act rupinder (PROTONIX) 40 MG mouth daily. EC tablet vit B Take 1 tablet 0 Active complex-vitamin by mouth daily. C-folic acid (NEPHRO-ALICIA OTC) 0.8 mg tablet sulfamethoxazole- Take 1 tablet 0 Active trimethoprim by mouth every (BACTRIM DS) other day. 800-160 mg per tablet metoprolol Take 12.5 mg by 0 Act rupinder tartrate mouth 2 (two) (LOPRESSOR) 25 mg times a day. tablet aspirin (ECOTRIN) Take 81 mg by 0 01/17/20 1 Discontinued 81 MG enteric mouth daily. 9 coated tablet bimatoprost Administer 1 0 Disco ntinued (LUMIGAN) 0.01 % drop to both 9 ophthalmic drops eyes nightly. ferrous sulfate Take 325 mg by 0 Discontinued 325 (65 FE) MG mouth 2 (two) 9 tablet times a day. midodrine Take 2.5 mg by 0 Disco ntinued (PROAMATINE) 2.5 mouth 3 (three) 9 (Stop Taking at MG tablet times a day. Dischar ge) lisinopril Take 5 mg by 0 Discon tinued (PRINIVIL,ZESTRIL mouth daily. 9 (Stop Taking at ) 5 mg tablet Discha rge) midodrine Take 1 tablet 90 tablet 0 01/17/2019 Expir ed (PROAMATINE) 2.5 (2.5 mg total) 9 MG tablet by mouth 3 (three) times a day for 30 days. apixaban Take 1 tablet 60 tablet 0 01/17/2019 Expir ed (ELIQUIS) 5 mg (5 mg total) by 9 tablet mouth 2 (two) times a day for 30 days. 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 18 Rapidly progressive glomerulonephritis 11/24/2017 Normocytic anemia 11/24/2017 Other proteinuria 11/24/2017 Essential hypertension 11/24/2017 Acute renal failure 11/19/2017 Encounters Date Type Specialty Care Team Description 01/15/2019 - Hospital Encounter Neurology Mainor Dueñas MD 01/17/2019 Fidelina Lawrence MD 01/15/2019 Intake Access after 01/14/2019 Family History Medical History Relation Name Comments Diabetes type II Maternal Grandmother Alzheimer's disease Sister Diabetes type II Sister Hypertension Sister Relation Name Status Comments Maternal Grandmother Sister Social History Tobacco Use Types Packs/Day Years Used Date Former Smoker 1 10 11/19/1969 - 0 07/22/1979 Smokeless Tobacco: Never Used Tobacco Cessation: Counseling Given: Yes Alcohol Use Drinks/Week oz/Week Comments Yes 3 Shots of liquor 3.0 per week Sex Assigned at Date Recorded Not on file Job Start Date Occupation Industry Not on file Not on file Not on file Travel History Travel Start Travel End No recent travel history available. Last Filed Vital Signs Vital Sign Reading Time Taken Comments Blood Pressure 165/74 01/17/2019 3:53 PM CDT Pulse 66 01/17/2019 3:53 PM CDT Temperature 36.8 C (98.2 F) 01/17/2019 1:09 PM CDT Respiratory Rate 18 01/17/2019 10:00 AM CDT Oxygen Saturation 98% 01/17/2019 3:53 PM CDT Inhaled Oxygen Concentration - - Weight - - Height - - Body Mass Index - - Plan of Treatment Health Maintenance Due Date Last Done Comments COLONOSCOPY SCREENING 1994 SHINGLES VACCINES (#1) 1994 65+ PNEUMOCOCCAL VACCINE (1 of 2 - PCV13) 2009 INFLUENZA VACCINE 02/09/2020 Procedures Procedure Name Priority Date/Time Associated Comments Diagnosis TTE COMPLETE, WO Routine 01/17/2019 3:24 Results for this CONTRAST, W DOPPLER PM CDT procedur e are in (60039) the results section. CT HEAD WO CONTRAST Routine 01/17/2019 11:18 Resu lts for this AM CDT procedure are i n the results section. HEMODIALYSIS Routine 01/17/2019 9:13 AM CDT HEPATITIS B SURFACE Routine 01/17/2019 7:38 Resu lts for this ANTIGEN AM CDT procedure are i n the results section. ESTIMATED GFR Routine 01/17/2019 5:15 Results fo r this AM CDT procedure are i n the results section. BASIC METABOLIC PANEL Routine 01/17/2019 5:15 Re sults for this AM CDT procedure are i n the results section. HC COMPLETE BLD COUNT Routine 01/17/2019 5:15 Re sults for this W/AUTO DIFF AM CDT procedure are i n the results section. CT ANGIOGRAM HEAD W WO Routine 01/16/2019 3:01 R esults for this CONTRAST PM CDT procedure are i n the results section. CT ANGIOGRAM NECK W WO Routine 01/16/2019 3:01 R esults for this CONTRAST PM CDT procedure are i n the results section. MRI BRAIN WO CONTRAST Routine 01/16/2019 9:59 Re sults for this AM CDT procedure are i n the results section. URINALYSIS SCREEN AND Routine 01/16/2019 8:19 Re sults for this MICROSCOPY, WITH REFLEX AM CDT proc edure are in TO CULTURE the results section. URINE CULTURE Routine 01/16/2019 8:19 Results fo r this AM CDT procedure are i n the results section. RHEUMATOID FACTOR Routine 01/16/2019 5:00 Result s for this AM CDT procedure are i n the results section. LIPID PANEL Routine 01/16/2019 5:00 Results for this AM CDT procedure are i n the results section. HIV AG/AB COMBINATION Routine 01/16/2019 5:00 Re sults for this AM CDT procedure are i n the results section. FOLATE RBC (GROUP TEST) Routine 01/16/2019 5:00 Results for this AM CDT procedure are i n the results section. VITAMIN D 25 HYDROXY Routine 01/16/2019 5:00 Res ults for this LEVEL AM CDT procedure are i n the results section. HOMOCYSTINE, PLASMA Routine 01/16/2019 5:00 Resu lts for this AM CDT procedure are i n the results section. T4, FREE Routine 01/16/2019 5:00 Results for this AM CDT procedure are i n the results section. THYROID STIMULATING Routine 01/16/2019 5:00 Resu lts for this HORMONE AM CDT procedure are i n the results section. SEDIMENTATION RATE Routine 01/16/2019 5:00 Resul ts for this AM CDT procedure are i n the results section. HEMOGLOBIN A1C Routine 01/16/2019 5:00 Results f or this AM CDT procedure are i n the results section. FOLATE LEVEL Routine 01/16/2019 5:00 Results for this AM CDT procedure are i n the results section. PARTIAL THROMBOPLASTIN Routine 01/15/2019 9:30 R esults for this TIME (PTT) PM CDT procedure are i n the results section. PROTHROMBIN TIME WITH Routine 01/15/2019 9:30 Re sults for this INR PM CDT procedure are i n the results section. HC COMPLETE BLD COUNT Routine 01/15/2019 9:30 Re sults for this W/AUTO DIFF PM CDT procedure are i n the results section. ESTIMATED GFR Routine 01/15/2019 8:13 Results fo r this PM CDT procedure are i n the results section. COMPREHENSIVE METABOLIC Routine 01/15/2019 8:13 Results for this PANEL PM CDT procedure are i n the results section. after 01/14/2019 Results Echocardiogram complete w contrast and 3D if needed (01/17/2019 3:24 PM CDT) Specimen Narrative Performed At [facility] Echo cardiography Report [id number] [facility], [place] [address] Pat.Name: PAN LANE.ID: [id number] .Date: 01/17/2019 Refer.MD: JUNIOR DUEÑAS MD Exam Time: 2:28:00 PM Study Type:R outine Echo Height: 62in Weight: 165lb BSA: 1.76 m2 Ag e: 1945,73Y Sex: MALE BP: 130/60 HR: 83 bpm Sonogrphr: FABIAN Roberson / Roxane Laurent MD [facility]. Stat.:Inpatient Room: 1826 Study Status:Final Echo Event ID:[id number] Order ID: [id number] Reason for Study:Stroke, suspected cardi ac etiology History / Clinical:Atrial Fibrillation, Cancer, Hypertension Procedures:2D Echo, Colorflow Doppler, I ntravenous Definity Contrast Race: S SUMMARY: LV EF is normal. LA volume is severely enlarged. FINDINGS: LV: LV size is normal. LV EF is normal. Overall wall motion is normal. Estimated EF is 65-69% RV: RV size is difficult to ass ess. RV systolic function is normal. LA: LA volume is severely enlar ged. RA: RA size is normal. AO: Aortic root diameter is nor mal. MOLLY: No pericardial effusion. AV: Mild to moderate thickening and calcification of AV leaflets. MV: Moderate thickening and preston cification of mitral leaflets. Mild mitral annular preston cification. A trace of mitral regurgitation. PV: Pulmonic valve not well see n. TV: No structural TV abnormalit ies noted. Delgado: LV relaxation is impaired. Other: Insufficient TR jet to estim ate PA systolic pressure. MEASUREMENTS: 2D Parasternal [place] LVOT 2 cm LA Ds 4 cm LVIDd 5.4 cm Index 3.1 cm/m Ao Rtd 3.7 cm Index 2.1 cm/m LVIDs 4.2 cm LV Mass 193.3 g (122-17 4) LV%fs 22.2 % LVM Ind ex 109.8 g/m2 IVSd 0.9 cm RWT 0.4 LVPWd 1 cm LA Sng Plane LA Area 30.3 cm2 (8.8-23.4) LA Vol 115.6 ml Index 65.7 ml/m LA LngAx 6.7 cm RA Sng Plane RA Area 14 cm2 (8.3-19.5) RA Vol 30.1 ml Index 17.1 ml/m RA LngAx 6.1 cm DOPPLER LVOT Stroke Vol LVOT 2 cm LVOT CO 4.3 l/min LVOT TVI 21.2 cm LVOT CI 2.5 l/m/m2 LVOT Tm 426 msec HR 65 bpm LVOT SV 66.6 ml MV For Flow/Valve Assess MV pkVel 113.9 cm/s MV Mean G 1.8 mmHg MV pkPG 5.2 mmHg MV TVI 32.9 cm Signed 01/17/2019 04:12 PM Jimi Osuna M.D. Procedure Note Interface, Radiology Results In - 2018 4:12 PM CDT Echocardiography Report [address] [place] [address] Pat.Name: PAN LANE Pat.I D: [id number] St.Date: 01/17/2019 Refer .MD: JUNIOR DUEÑAS MD Exam Time: 2:28:00 PM Study Type:Routine Echo Height: 62in Weigh t: 165lb BSA: 1.76 m2 Age: 2 1945,73Y Sex: MALE BP: 130/60 HR: 83 bpm Sonogrphr: FABIAN Roberson / Roxane Laurent MD Pat. Stat.:Inpatient Room: [place] [address] Study Status:Final Echo Event ID:[id number] Order ID: [id number] Reason for Study:Stroke, suspected cardi ac etiology History / Clinical:Atrial Fibrillation, Cancer, Hypertension Procedures:2D Echo, Colorflow Doppler, I ntravenous Definity Contrast Race: S SUMMARY: LV EF is normal. LA volume is severely enlarged. FINDINGS: LV: LV size is normal. LV EF is no rmal. Overall wall motion is normal. Estimated EF is 65-69 % RV: RV size is difficult to assess . RV systolic function is normal. LA: LA volume is severely enlarged . RA: RA size is normal. AO: Aortic root diameter is normal . MOLLY: No pericardial effusion. AV: Mild to moderate thickening an d calcification of AV leaflets. MV: Moderate thickening and calcif ication of mitral leaflets. Mild mitral annular calcifica tion. A trace of mitral regurgitation. PV: Pulmonic valve not well seen. TV: No structural TV abnormalities noted. Delgado: LV relaxation is impaired. Other: Insufficient TR jet to estimat e PA systolic pressure. MEASUREMENTS: 2D Parasternal [place] LVOT 2 cm LA D s 4 cm LVIDd 5.4 cm Inde x 3.1 cm/m Ao Rtd 3.7 cm Index 2.1 cm/m LVIDs 4.2 cm LV Mass 193.3 g (122-174) LV%fs 22.2 % LVM Index 109.8 g/m2 IVSd 0.9 cm RWT 0.4 LVPWd 1 cm LA Sng Plane LA Area 30.3 cm2 (8.8-23.4) LA Vol 115.6 ml Index 65.7 ml/m LA LngAx 6.7 cm RA Sng Plane RA Area 14 cm2 (8.3-19.5) RA Vol 30.1 ml Index 17.1 ml/m RA LngAx 6.1 cm DOPPLER LVOT Stroke Vol LVOT 2 cm LVOT CO 4.3 l/min LVOT TVI 21.2 cm LVOT CI 2.5 l/m/m2 LVOT Tm 426 msec HR 65 bpm LVOT SV 66.6 ml MV For Flow/Valve Assess MV pkVel 113.9 cm/s MV M carlton G 1.8 mmHg MV pkPG 5.2 mmHg MV T 32.9 cm Signed 01/17/2019 04:12 PM Jimi Osuna M.D. Performing Organization Address City/State/Zipcode Phone Number [facility] [address] [place] [address] CT Head Wo Contrast (01/17/2019 11:18 AM CDT) Specimen Narrative Performed At EXAMINATION: CT HEAD WO CONTRAST RADIANT CT IMAGING WAS PERFORMED WITH ITERATIVE RECONSTRUCTION TECHNIQUE AND/OR AUTOMATED EXPOSURE CONTROL TO REDUCE RAD IATION DOSE. CLINICAL HISTORY: subdural hygroma COMPARISON: MRI brain January 16, 2019 FINDINGS: There is no acute intracranial abnormality. Specifica lly there is no intracranial hemorrhage, mass effect or acute infarction. Possible small subdural hygroma is again noted over th e anterior right frontal convexity without significant mass effect. The re is otherwise mild/moderate cerebral cortical volume l oss. There are minimal microvascular white matter changes b finesse demonstrated on the MRI. There are minimal chronic focal ischemic c hanges in the thalami bilaterally. Atherosclerotic calcifications noted in the distal int ernal carotid and vertebral arteries. There are postop changes and minimal mucosal thickenin g in the paranasal sinuses. IMPRESSION: No acute abnormality and no change from the prior study. [id number] Procedure Note Interface, Radiology Results - 01/17/2019 11:33 AM CDT EXAMINATION: CT HEAD WO CONTRAST CT IMAGING WAS PERFORMED WITH ITERATIVE RECONSTRUCTION TECHNIQUE AND/OR AUTOMATED EXPOSURE CONTROL TO REDUCE RADIATION DOSE. CLINICAL HISTORY: subdural hygroma COMPARISON: MRI brain January 16, 2019 FINDINGS: There is no acute intracranial abnormal ity. Specifically there is no intracranial hemorrhage, mass effect or acute infarction. Possible small subdural hygroma is again noted over the anterior right frontal convexity without significant mass effect. There is otherwise mild/moderate cerebral cortical volume loss. There are minimal microvascular white ma tter changes better demonstrated on the MRI. There are minimal chronic focal ischemic changes in the thalami bilaterally. Atherosclerotic calcifications noted in the distal internal carotid and vertebral arteries. There are postop changes and minimal muc osal thickening in the paranasal sinuses. IMPRESSION: No acute abnormality and no change from the prior study. [id number] Performing Organization Address [facility]/Zipcode Phone Number [facility] [address] [place] [id number] Hepatitis B surface antigen (01/17/2019 7:38 AM CDT) Pathologist [facility] [place] nature Hepatitis B surface Non-reactive Non-reactive [facility] Specimen Blood Performing Organization Address [facility] Phone Number [facility] DEPARTMENT OF PATHOLOGY AND [address] [place], [place] [id number] [address] [place] [id number] Estimated GFR (01/17/2019 5:15 AM CDT)Only the most recent of2 resultswithin the time period is included. Pathologist [facility] Estimated GFR 21 (A) mL/min/1.73 [facility] Comment: m2 HOSPITAL Catergory Units Interpretation G1 >=90 Normal or high G2 60-89 Mildly decreased G3a 45-59 Mildly to moderately decreas ed G3b 30-44 Moderately to severely decre ased G4 15-29 Severely decreased G5 <15 Kidney failure The eGFR was calculated using the Chronic Kidney Disea se Epidemiology Collaboration (CKD-EPI) equation. Interpretation is based on recommendations of the National Kidney Foundation-Kidney Disease Outcomes Devan lity Initiative (NKF-KDOQI) published in 2014. Specimen Plasma specimen Performing Organization Address [facility]/Zipcode Phone Number [facility] DEPARTMENT OF PATHOLOGY AND [address] [place] [address] [address] [place] [phone] CBC with platelet and differential (01/17/2019 5:15 AM CDT)Only the most recent of2 resultswithin the time period is included. Pathologist [facility] WBC 4.37 (L) 4.50 - 11.00 [facility] RBC 3.19 (L) 4.40 - 6.00 [facility] m/uL HOSPITAL HGB 9.9 (L) 14.0 - 18.0 [facility] g/dL HOSPITAL HCT 31.2 (L) 41.0 - 51.0 % [facility] MCV 97.8 82.0 - 100.0 [facility] MCH 31.0 27.0 - 34.0 pg [facility] MCHC 31.7 31.0 - 37.0 [facility] gdL [facility] RDW - SD 48.3 37.0 - 55.0 [facility] MPV 10.2 8.8 - 13.2 [facility] Platelet count 193 150 - 400 k/uL [facility] Nucleated RBC 0.00 /100 WBC [facility] Neutrophils 62.7 39.0 - 69.0 % [facility] Lymphocytes 14.2 (L) 25.0 - 45.0 % [facility] Monocytes 13.0 (H) 0.0 - 10.0 % [facility] Eosinophils 9.2 (H) 0.0 - 5.0 % [facility] Basophils 0.7 0.0 - 1.0 % [facility] Immature granulocytes 0.2Comment: 0.0 - 1.0 % [facility] "[facility] granulocytes" (promyelocytes , myelocytes, metamyelocytes ) Specimen Blood Performing Organization Address City/State/Zipcode Phone Number [facility] DEPARTMENT OF PATHOLOGY AND [address] [place], [place] [address] GENOM[facility] MEDICINE [address] [address] Basic metabolic panel (01/17/2019 5:15 AM CDT) Pathologist Sig nature Sodium 138 135 - 148 mEq/L [facility] Potassium 4.2 3.5 - 5.0 mEq/L [facility] Chloride 103 98 - 112 mEq/L [facility] CO2 24 24 - 31 mEq/L [facility] Anion gap 11@ANIO 7 - 15 mEq/L [facility] BUN 28 (H) 8 - 23 mg/dL [facility] Creatinine 2.80 (H) 0.70 - 1.20 mg/dL [facility] Glucose 117 (H) 65 - 99 mg/dL [facility] Calcium 8.8 8.8 - 10.2 mg/dL [facility] Specimen Plasma specimen Performing Organization Address City/State/Zipcode Phone Number [facility] DEPARTMENT OF PATHOLOGY AND [address] [place], [place] [address] GENOMIC MEDICINE [facility] [address] [place] [address] CTA Head W Wo Contrast (01/16/2019 3:01 PM CDT) Specimen Narrative Performed At EXAMINATION: CT ANGIOGRAM HEAD W WO CONT RAST HM RADIANT CLINICAL HISTORY: stroke COMPARISON: None TECHNIQUE: Imaging of the intracranial circulation w as obtained from the skull base to the vertex during the arterial phase of enhancement. Postprocessing was performed with MIP multiplanar and 3D reconstructed images. CT imaging was performed with iterative reconstruction technique and/or automated ex posure control to reduce radiation dose. FINDINGS: Calcified arteriosclerosis of the carotid siphons with luminal irregularity and multifocal mild narrowing. No focal s tenosis of the middle or anterior cerebral arteries. No aneurysm of t he anterior intracranial circulation. Right dominant anterior cerebral artery A1 segment. Calcified atherosclerosis of the vertebral artery V4 s egments without focal stenosis. No focal stenosis of the basilar or po sterior cerebral arteries. No aneurysm of the posterior intracranial ci rculation. Markedly diminutive or absent posterior communicating arteries. IMPRESSION: 1. Multifocal mild narrowing of the carotid siphons se condary to calcified arteriosclerosis. No other focal stenosis of the anterior or posterior intracranial circulation. [id number] Procedure Note Hm Interface, Radiology Results Incoming - 01/16/2019 4:28 PM CDT EXAMINATION: CT ANGIOGRAM HEAD W WO CONTRAST CLINICAL HISTORY: stroke COMPARISON: None TECHNIQUE: Imaging of the intracranial circulation was obtained from the skull base to the vertex during the arterial phase of enhancement. Postprocessing was performed with MIP multiplanar and 3D reconstructed images. CT imaging was performed with iterative reconstruction technique and/o r automated exposure control to reduce radiation dose. FINDINGS: Calcified arteriosclerosis of the caroti d siphons with luminal irregularity and multifocal mild narrowing. No focal stenosis of the middle or anterior cerebral arteries. No aneurysm of the anterior intracranial circulation. Right dominant anterior cerebral artery A1 segment. Calcified atherosclerosis of the vertebr al artery V4 segments without focal stenosis. No focal stenosis of the basilar or posterior cerebral arteries. No aneurysm of the posterior intracranial circulation. Markedly diminutive or absent posterior communicating arteries. IMPRESSION: 1. Multifocal mild narrowing of the saucedo tid siphons secondary to calcified arteriosclerosis. No other focal stenosis of the anterior or posterior intracranial circulation. [facility]-[id number] Performing Organization Address [facility]/Zipcode Phone Number [facility] [address] [place] [address] CTA Neck W Wo Contrast (01/16/2019 3:01 PM CDT) Specimen Narrative Performed At EXAMINATION: CT ANGIOGRAM NECK W WO CO NTRAST HM RADIANT CLINICAL HISTORY: stroke COMPARISON: None. TECHNIQUE: Neck CTA with multi-planar MIP and volumetric renderin g (3D) after bolus intravenous iodinated contrast administration was perf ormed. All CT images were acquired using low-dose technique with aut omated exposure control. FINDINGS: Normal branching anatomy of the aortic arch. Calcified atherosclerosis of the aortic arch and origins the major branch vessel s without significant stenosis. Calcified atherosclerosis of the right carotid bifurca tion and proximal internal carotid artery with approximately 20% stenosi s per NASCET criteria. No significant atherosclerosis or stenosis o f the left carotid bifurcation or proximal internal carotid artery. There is no significant stenosis of the bilateral vert ebral arteries. The vertebral arteries are codominant. IMPRESSION: No significant flow-limiting cervical carotid or verte bral artery stenosis. [facility]-[id number] Procedure Note Hm Interface, Radiology Results Incoming - 01/16/2019 4:32 PM CDT EXAMINATION: CT ANGIOGRAM NECK W WO CONTRAST CLINICAL HISTORY: stroke COMPARISON: None. TECHNIQUE: Neck CTA with multi-planar MIP and volum etric rendering (3D) after bolus intravenous iodinated contrast administration was performed. All CT images were acquired using low-dose technique with automated exposure control. FINDINGS: Normal branching anatomy of the aortic a rch. Calcified atherosclerosis of the aortic arch and origins the major branch vessels without significant stenosis. Calcified atherosclerosis of the right c arotid bifurcation and proximal internal carotid artery with approximately 20% stenosis per NASCET criteria. No significant atherosclerosis or stenosis of the left carotid bifurcation or proximal internal carotid artery. There is no significant stenosis of the bilateral vertebral arteries. The vertebral arteries are codominant. IMPRESSION: No significant flow-limiting cervical ca rotid or vertebral artery stenosis. [facility]-[id number] Performing Organization Address [facility]/Zipcode Phone Number [facility] [address] [place] [address] MRI Brain Wo Contrast (01/16/2019 9:59 AM CDT) Specimen Narrative Performed At This result has an attachment that is no t available. EXAMINATION: MRI BRAIN WO CONTRAST RADIANT CLINICAL HISTORY: NEURO DEFICIT ACUTE SINGLE PRO GRESSING, STROKE COMPARISON: None TECHNIQUE: Multiplanar and multisequence MRI imaging of the brain was obtained without contrast. FINDINGS: A small CSF signal subdural collection m easuring 7 mm in thickness is noted along the right frontal convexity, image 12 of series 6. A few scattered T2/FLAIR hyperintensities are noted along the periventricular white matter, nonspecific but likely related to trace chronic microvascular i schemic changes. No restricted diffusion identified to indicate recent infarct. No susceptibility identified to suggest hemosiderin deposition from prior hemorrha ge. No mass, mass effect, or midline shift is seen. The basal ganglia, thalami, midbrain, po ns and cervicomedullary junction are unremarkable. The ventricles and sulci are unremarkable for patient's age. Sella turcica is normal in appearance. The basal cisterns are patent. The calvarium appears intact. The major intracranial vascular flow voids are present . The orbital contents are symmetric and u nremarkable. The paranasal sinuses are unremarkable. The mastoid air cells and middle ear cavities are clear. IMPRESSION: Small 7 mm thick right frontal convexity subdural hygroma of doubtful clinical significance. No acute intracranial abnormality identified. [facility]-[id number] Procedure Note Hm Interface, Radiology Results Incoming - 01/16/2019 10:16 AM CDT EXAMINATION: MRI BRAIN WO CONTRAST CLINICAL HISTORY: NEURO DEFICIT ACUTE SINGLE PROGRESSING, STROKE COMPARISON: None TECHNIQUE: Multiplanar and multisequence MRI imaging of the brain was obtained without contrast. FINDINGS: A small CSF signal subdural collection m easuring 7 mm in thickness is noted along the right frontal convexity, image 12 of series 6. A few scattered T2/FLAIR hyperintensities are noted along the periventricular white matter, nonspecific but likely related to trace chronic microvascular i schemic changes. No restricted diffusion identified to indicate recent infarct. No susceptibility identified to suggest hemosiderin deposition from prior hemorrhage. No mass, mass effect, or midline shift is s een. The basal ganglia, thalami, midbrain, po ns and cervicomedullary junction are unremarkable. The ventricles and sulci are unremarkable for patient's age. Sella turcica is normal in appearance. The basal cisterns are patent. The calvarium appears intact. The major intracranial vascular flow voi ds are present. The orbital contents are symmetric and u nremarkable. The paranasal sinuses are unremarkable. The mastoid air cells and middle ear cavities are clear. IMPRESSION: Small 7 mm thick right frontal convexity subdural hygroma of doubtful clinical significance. No acute intracranial abnormality identified. [facility]-[id number] Performing Organization Address City/State/Zipcode Phone Number [facility] [address] [place] [address] Urinalysis screen and microscopy, with reflex to culture (01/16/2019 8:19 AM CDT) Specimen site Clean catch [facility] Color, UA Dark Yellow [facility] Appearance, UA Clear [facility] Specific gravity, 1.019 1.001 - 1.035 [facility] pH, UA 5.0 5.0 - 8.5 [facility] Protein, UA 3+ (A) Negative [facility] Glucose, UA 1+ (A) Negative [facility] Ketones, UA Negative Negative [facility] Bilirubin, UA Positive@UBIL Negative [facility] () [facility] Blood, UA Negative Negative [facility] Nitrite, UA Negative Negative [facility] Urobilinogen, UA 2.0 (A) <2.0 [facility] Leukocyte esterase, Negative Negative [facility] Epithelial cells, 1 /HPF [facility] WBC, UA 3 (H) 0 - 1 /HPF [facility] RBC, UA 1 0 - 5 /HPF [facility] Bacteria, UA Few None seen [facility] Yeast, UA None seen [facility] Yeast with None seen [facility] pseudohyphae, [facility] Amorphous crystals Few [facility] Hyaline casts, UA >20 (A) /LPF [facility] Specimen Urine Performing Organization Address City/[facility]/Zipcode Phone Number [facility] DEPARTMENT OF PATHOLOGY AND [address] [place], [place] [phone] [address] [address] Urine culture (01/16/2019 8:19 AM CDT) Pathologist [facility] [place] nature Urine culture SEE COMMENTComment: [facility] Bacteriuria screen HOSPITAL negative. Specimen Performing Organization Address City/[facility]/Zipcode Phone Number [facility] DEPARTMENT OF PATHOLOGY AND [address] [place] [address] [phone] [address] HIV Ag/Ab combination (01/16/2019 5:00 AM CDT) HIV Ag/Ab combination Non-reactive Non-reactive [facility] Specimen Blood Performing Organization Address [facility]/Zipcode Phone Number [facility] DEPARTMENT OF PATHOLOGY AND [address] [place] [address] [phone] [address] Homocystine, plasma (01/16/2019 5:00 AM CDT) Pathologist [facility] Homocysteine 20.2 (H) 0.0 - 15.0 [facility] Comment: umol/L [facility] The risk for coronary vascular disease increases progr essively with homocysteine concentration. A 3.4 times greater risk is associated with a homocysteine concentration of greate r than 15.8 umol/L as compared to a concentration below 14.1 umol/L. Specimen Plasma specimen Performing Organization Address [facility] Phone Number [facility] DEPARTMENT OF PATHOLOGY AND [address] [place] [address] [phone] [address] Vitamin D 25 hydroxy level (01/16/2019 5:00 AM CDT) Pathologist [facility] Vitamin D, 30.2 30.0 - 150.0 [facility] 25-hydroxy Comment: ng/mL [facility] This assay reports the sum of 25-hydroxy vitamin D3 an d 25-hydroxy vitamin D2. Reference range: 0-17 years: Deficiency: less than 20ng/mL Optimum level: greater than or equal to 20 ng/mL. 18 years and older: Deficiency: less than 20ng/mL Insufficiency: 20-29 ng/mL Optimum Level: 30-80 ng/mL The assay reportable range is 3.4 155.9 ng/mL. Level s higher than 150 ng/mL may be associated with toxicity. If toxicity is clinically suspected and the reported r esult is >155.9 ng/mL,contact lab for alternative methods to obtain a definitive level. If separate quantitation of 25-hydroxy vitamin D3 and 25-hydroxy vitamin D2 is needed, please contact lab for alternative methods. Specimen Blood Performing Organization Address [facility] Phone Number [facility] DEPARTMENT OF PATHOLOGY AND [address] [place] [address] [place] [phone] Sedimentation rate (01/16/2019 5:00 AM CDT) Pathologist Sig nature Sedimentation rate 47 (H) 0 - 10 mm/hr [facility] Specimen Blood Performing Organization Address [facility] Phone Number [facility] DEPARTMENT OF PATHOLOGY AND [address] [place] [address] [place] [phone] Rheumatoid factor (01/16/2019 5:00 AM CDT) Pathologist Sig nature Rheumatoid factor 17 (H) 0 - 13 IU/mL [facility] Specimen Plasma specimen Performing Organization Address [facility] Phone Number [facility] DEPARTMENT OF PATHOLOGY AND [address] [place] [phone] Thyroid stimulating hormone (01/16/2019 5:00 AM CDT) Pathologist Sig nature TSH 4.51 (H) 0.27 - 4.20 uIU/mL [facility] Specimen Plasma specimen Performing Organization Address [facility] Phone Number [facility] DEPARTMENT OF PATHOLOGY AND [address] [place] [phone] T4, free (01/16/2019 5:00 AM CDT) Pathologist Sig nature T4, free 1.2 0.9 - 1.7 ng/dL [facility] Specimen Plasma specimen Performing Organization Address [facility] Phone Number [facility] DEPARTMENT OF PATHOLOGY AND [address] [place] [phone] [place] [address] Hemoglobin A1c (01/16/2019 5:00 AM CDT) Hemoglobin A1C 4.9 4.0 - 5.6 % [facility] Comment: HOSPITAL HbA1c cutoffs for diagnosing diabetes: 4.0% - 5.6% = normal 5.7% - 6.4% = increased risk for diabetes (prediabetes ) >=6.5% = diabetes Goals for glycemic control (ADA 2016) < 7.0% Target for non adults with diabetes. More or less stringent targets may be appropriate for individual patients. <7.5% Target for Children and adolescents with type 1 diabetes. Specimen Blood Performing Organization Address City/State/Zipcode Phone Number [facility] DEPARTMENT OF PATHOLOGY AND [address] [place] [address] [phone] [address] Folate RBC (group test) (01/16/2019 5:00 AM CDT) Pathologist Sig nature RBC folate 1,439 499 - 1,504 ng/mL [facility] Specimen Blood Performing Organization Address [facility] Phone Number [facility] DEPARTMENT OF PATHOLOGY AND [address] [place] [address] [phone] [address] Folate level (01/16/2019 5:00 AM CDT) Pathologist Sig nature Folate 11.3 4.8 - 24.2 ng/mL [facility] Specimen Serum Performing Organization Address [facility] Phone Number [facility] DEPARTMENT OF PATHOLOGY AND [address] [place] [address] [phone] [address] Lipid panel (01/16/2019 5:00 AM CDT) Cholesterol 140 <200 mg/dL [facility] Triglycerides 128 <150 mg/dL [facility] HDL cholesterol 39 (L) >40 mg/dL [facility] LDL cholesterol 82Comment: Result <100 mg/dL [facility] obtained by direct [facility] LDL measurement [facility] Lipid panel [facility] interpretation Comment: [facility] Total Cholesterol (mg/dL) [facility] <200 Desirable 200-239 Borderline-high >=240 High Triglycerides (mg/dL) <150 Normal 150-199 Borderline-high 200-499 High >=500 Very high HDL Cholesterol (mg/dL) <40 Low (male) <40 Low (female) LDL Cholesterol (mg/dL) <100 Optimal 100-129 Near or above optimal 130-159 Borderline-high 160-189 High >=190 Very high Risk Catergories that modify LDL goals. Risk Catergories LDL goal (mg/d L) CHD and CHD risk equivalent <100 (10-year risk >20%) Multiple (2+) risk factors <130 (10-year risk =<20%) 0-1 risk factors <160 (<10-year risk) Defining levels of lipids in metabolic syndrome Triglycerides >=150 mg/dL HDL Cholesterol Men <40 mg /dL Women <40 mg/ dL Non-HDL cholesterol is a second target for therapy in persons with high triglycerides (>=200 mg/dL) Specimen Plasma specimen Performing Organization Address City/[facility]/Zipcode Phone Number [facility] DEPARTMENT OF PATHOLOGY AND [address] [place] [address] [place] [phone] Partial thromboplastin time, activated (01/15/2019 9:30 PM CDT) Pathologist [facility] PTT 33.8 23.0 - 36.0 [facility] Comment: [facility] PTT therapeutic range for unfractionated heparin is 61.0-112.0 seconds which corresponds to Anti-Xa 0.3-0.7 U/ml. Specimen Blood Performing Organization Address [facility] Phone Number [facility] DEPARTMENT OF PATHOLOGY AND [address] [place] [address] [phone] [address] Prothrombin time with INR (01/15/2019 9:30 PM CDT) Pathologist [facility] Prothrombin time 13.8 11.5 - 14.5 [facility] INR 1.1 [facility] Comment: ATILIO The International Normalized Ratio (INR) is a [facility] monitoring tool for patients who are stable on oral anticoagulant therapy. An INR of 2.0-3.0 is suggested for deep vein thrombosis/pulmonary embolism. Specimen Blood Performing Organization Address [facility]/Zipcode Phone Number [facility] DEPARTMENT OF PATHOLOGY AND [address] [place] [address] [phone] [address] Comprehensive metabolic panel (01/15/2019 8:13 PM CDT) Sodium 139 135 - 148 [facility] mEq/L [facility] Potassium 4.7 3.5 - 5.0 [facility] mEq/L [facility] Chloride 101 98 - 112 [facility] mEq/L [facility] CO2 25 24 - 31 mEq/L [facility] Anion gap 13@ANIO 7 - 15 mEq/L [facility] BUN 19 8 - 23 mg/dL [facility] Creatinine 2.58 (H) 0.70 - 1.20 [facility] mg/dL [facility] Glucose 127 (H) 65 - 99 mg/dL [facility] Calcium 8.9 8.8 - 10.2 [facility] mg/dL [facility] Protein 7.0 6.3 - 8.3 [facility] Comment: g/dL [facility] [place] 4.6-7.0 g/dL 1 week 4.4-7.6 g/dL 7 months-1year 5.1-7.3 g/dL 1-2 years 5.6-7.5 g/dL >3 years 6.0-8.0 g/dL 18-150 6.3-8.3 g/dL Albumin 3.2 (L) 3.5 - 5.0 [facility] g/dL [facility] A/G ratio 0.8 0.7 - 3.8 [facility] Alkaline phosphatase 90 40 - 129 U/L [facility] AST 21 10 - 50 U/L [facility] ALT 14 5 - 50 U/L [facility] Total bilirubin <0.2 0.0 - 1.2 [facility] mg/dL [facility] Specimen Plasma specimen Performing Organization Address City/State/[facility] Phone Number [facility] DEPARTMENT OF PATHOLOGY AND [address] [place] [phone] GENOMIC MEDICINE [address] [address] after 01/14/2019 Advance Directives For more information, please contact: [phone] Type Date Recorded Patient Body Former Explanati on Advance Directives, Living Will 07/17/2018 8:09 AM and Medical Power of Feeder Loader
--- OUTSIDE RECORDS SUMMARY | 2020-01-15 22:07 | XMS REPORT | Continuity of Care Document ---
:1945 Author Organization [facility] t Address [address] [place] [address] [address] [place] [address] Care Team Providers Name Role Phone Asked, No Pcp Primary Care Physician Unavailable Doctor Unassigned, Name Attending Clinician Unavailable Spenser JACKSON Attending Clinician Dimitris Lawrence MD Attending Clinician Payers Payer Name Policy Policy Number Effective Expiration Source Type Date Date TEXANPLUSTEXANPLUS xxxxxxxxx 2018 Domo mitchell [id number] 00:00:00 Me thodist resentHMO Problems Condition Condition Condition Status Onset Resolution Last Treating Co mments Source Name Details Category Date Date Treatment Clinician Date Slurred Slurred Disease Active [place] speech speech 7-08 Methodi 00:00: st 00 SCAR (acute SCAR (acute Disease Active [place] kidney kidney 4-28 Method[facility] injury) injury) 00:00: st 00 Acute Acute Disease Active [place] renal renal 1-07 [facility] failure failure 00:00: st (ARF) (ARF) 00 Renal Renal Disease Active [place] failure failure 9-11 Methodi 00:00: st 00 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[place] (rapidly (rapidly 7-02 Method i progressiv progressiv 00:00: st e e 00 glomerulon glomerulon ephritis) ephritis) Rapidly Rapidly Disease Active [place] progressiv progressiv 5-17 Me thodi e e 00:00: st glomerulon glomerulon 00 ephritis ephritis Normocytic Normocytic Disease Active [place] anemia anemia 5-17 Methodi 00:00: st 00 Other Other Disease Active [place] proteinuri proteinuri 5-17 Me thodi a a 00:00: st 00 Essential Essential Disease Active Sarah ston hypertensi hypertensi 5-17 Me thodi on on 00:00: st 00 Acute Acute Disease Active [place] renal renal -12 [facility] failure failure 00:00: st 00 Allergies, Adverse Reactions, Alerts This patient has no known allergies or adverse reactions. Family History Family Member Diagnosis Comments Start Date Stop Date Source Maternal Diabetes type II Dia grandmother Faith Natural sister Alzheimer's disease H megha Faith Natural sister Diabetes type II [place] Natural sister Hypertension [place] Faith Social History Social Habit Start Date Stop Date Quantity Comments Source Sex Assigned At [facility] ethodi Cigarettes smoked 2018-01-09 2018-01-09 [place] Faith current (pack per 00:00:00 00:00:00 day) - Reported Cigarette 2018-01-09 2018-01-09 [place] Method ist pack-years 00:00:00 00:00:00 Alcohol intake 2018-01-09 2018-01-09 Current drinker [place] [facility] 00:00:00 00:00:00 of alcohol (finding) Alcohol Comment 2017-11-19 2017-11-19 [facility] 00:[facility]:00 00:00:00 History of tobacco 1969-11-19 1979-07-22 Current smoker [facility] chen Faith use 00:00:00 00:00:00 Smoking Status Start Date Stop Date Source Former smoker 2018-01-09 00:00:00 2018-01-09 00:00:00 [place] Faith Medications Ordered Filled Start Stop Current Ordering Indication Dosage Frequency Signature Comments Components Source Medication Medication Date Date Medication? Clinician (SIG) Name Name midodrine 2019- No 2.5mg Q.07023271 Take 2.5 [place] (PROAMATINE 7-10 07-10 [id number] mg by Methodi ) 2.5 MG 17:11: 00:[address] tablet 15 :00 (three) times a day. lisinopril 2019-0 2019- No 5mg QD Take 5 mg [place] (PRINIVIL,Z 7- 07-10 by mouth Met tl ESTRIL) 5 17:11: 00:[address] mg tablet 15 :00 tamsulosin Yes .4mg QD Take 0.4 Sarah ston (FLOMAX) 7-10 mg by Methodi 0.4 mg 17:11: mouth st capsule,ext 13 daily. ended release 24hr pantoprazol Yes 40mg QD Take 40 mg Dia e 7-10 by mouth Methodi (PROTONIX) 17:11: daily. st 40 MG EC 13 tablet vit B Yes 1{tbl} QD Take 1 Dia complex-vit 7-10 tablet by Met tl real 17:11: mouth st C-folic 13 daily. acid (NEPHRO-VIT E OTC) 0.8 mg tablet sulfamethox Yes 1{tbl} Q2D Take 1 [place] azole-trime 7-10 tablet by Met tl thoprim 17:11: mouth st (BACTRIM 13 every DS) 800-160 other day. mg per tablet metoprolol Yes 12.5mg Q.5D Take 12.5 Dia tartrate 7-10 mg by Methodi (LOPRESSOR) 17:11: mouth 2 st 25 mg 13 (two) tablet times a day. midodrine 2018- No 2.5mg Q.05578343 Take 1 Dia (PROAMATINE -02-16 [id number] tablet Methodi ) 2.5 MG 00:00: 23:59 3D (2.[address] tablet 00 :00 total) by mouth 3 (three) times a day for 30 days. apixaban 2018- No 5mg Q.5D Take 1 [place] (ELIQUIS) 5 01-17- tablet (5 Me thodi mg tablet 00:00: 23:59 mg total) st 00 :00 by mouth 2 (two) times a day for 30 days. aspirin 2018- No 81mg QD Take 81 mg Sarah ston (ECOTRIN) 01-1609 by mouth Metho di 81 MG 00:44: 00:[address] enteric 10 :00 coated tablet bimatoprost 2018- No 1[drp] QD Administer Dia (LUMIGAN) 01-16 1 drop to Meth damir 0.01 % 00:44: 00:[address] ophthalmic 10 :00 nightly. drops ferrous 2018- No 325mg Q.5D Take 325 [place] sulfate 325 01-16 mg by Method i (65 FE) MG 00:44: 00:[address] tablet 10 :00 (two) times a day. blood-gluco Yes Use as [place] meter 5-18 instructed Metho di (glucose 00:00: st monitoring 00 kit) kit Vital Signs Vital Name Observation Time Observation Value Comments Source Systolic blood 2019-01-17 15:53:19 165 mm[Hg] [place] n Faith pressure Diastolic blood 2019-01-17 15:53:19 74 mm[Hg] [place] Faith pressure Heart rate 2019-01-17 15:53:19 66 /min [place] Oxygen saturation in 2019-01-17 15:53:19 98 /min [place] Arterial blood by Pulse oximetry Body temperature 2019-01-17 13:09:17 36.78 Judy K[place]yn [place] Respiratory rate 2019-01-17 10:00:00 18 /min [place] Faith Procedures Procedure Date / Time Performing Clinician Source Performed TTE COMPLETE, WO CONTRAST, 2019-01-17 15:24:49 Fidelina Lawrence DOPPLER ([id number]) CT HEAD WO CONTRAST 2019-01-17 11:18:57 [place] HEMODIALYSIS 2019-01-17 09:13:18 Min [place] La thodist HEPATITIS B SURFACE 2019-01-17 07:38:00 Jimi Batista ANTIGEN HC COMPLETE BLD COUNT 2019-01-17 05:15:00 Fidelina Lawrence W/AUTO DIFF BASIC METABOLIC PANEL 2019-01-17 05:15:00 Fidelina Lawrence ESTIMATED GFR 2019-01-17 05:15:[address] ANGIOGRAM HEAD W WO 2019-01-16 15:01:36 Fidelina Lawrence Faith CONTRAST CT ANGIOGRAM NECK W WO 2019-01-16 15:01:20 Fidelina Lawrence Dimitris chen Faith CONTRAST MRI BRAIN WO CONTRAST 2019-01-16 09:59:00 Darrel Ortez Davidson chen Faith Weir URINE CULTURE 2019-01-16 08:19:00 Lucinda Dunbar ethodist URINALYSIS SCREEN AND 2019-01-16 08:19:00 Lucinda Dunbar MICROSCOPY, WITH REFLEX TO CULTURE FOLATE LEVEL 2019-01-16 05:00:00 Sudhakar PerezDarrel Weir HEMOGLOBIN A1C 2019-01-16 05:00:00 Sudhakar BedoyalisserinDarrel Weir SEDIMENTATION RATE 2019-01-16 05:00:00 De La Fuente AurelianoDarrel freeman Faith Weir THYROID STIMULATING 2019-01-16 05:00:00 De [place] Fu[place] AurelianolissreinDarrel Faith HORMONE Weir T4, FREE 2019-01-16 05:00:00 Sudhakar Perez, Darrel [place] Weir HOMOCYSTINE, PLASMA 2019-01-16 05:00:00 Sudhakar BedoyalisserinDarrel Faith Weir VITAMIN D 25 HYDROXY LEVEL 2019-01-16 05:00:00 Sudhakar BedoyalisserinTawnya Weir FOLATE RBC (GROUP TEST) 2019-01-16 05:00:00 De La Fuente AurelianoDarrel freeman Weir HIV AG/AB COMBINATION 2019-01-16 05:00:00 Sudhakar BedoyalisserinDarrel Faith Weir LIPID PANEL 2019-01-16 05:00:00 De La Fuente AurelianoDarrel freeman Weir RHEUMATOID FACTOR 2019-01-16 05:00:00 De La Fuente AurelianoDarrel freeman n Faith Weir HC COMPLETE BLD COUNT 2019-01-15 21:30:00 Lucinda Dunbar W/AUTO DIFF PROTHROMBIN TIME WITH INR 2019-01-15 21:30:00 Lucinda Dunbar PARTIAL THROMBOPLASTIN 2019-01-15 21:30:00 Lucinda Dunbar TIME (PTT) COMPREHENSIVE METABOLIC 2019-01-15 20:13:00 Lucinda Dunbar PANEL ESTIMATED GFR 2019-01-15 20:13:00 Lucinda Dunbar ethodist Plan of Care Planned Activity Planned Date Details Comments Source Future Scheduled 2020-02-09 INFLUENZA VACCINE [place] [facility] Test 00:00:00 [code = INFLUENZA VACCINE] Future Scheduled 2009 65+ PNEUMOCOCCAL [place] Test 00:00:00 VACCINE (1 of 2 - PCV13) [code = 65+ PNEUMOCOCCAL VACCINE (1 of 2 - PCV13)] Future Scheduled 1994 COLONOSCOPY SCREENING [facility] Faith Test 00:00:00 [code = COLONOSCOPY SCREENING] Future Scheduled 1994 SHINGLES VACCINES (#1) [place] Faith Test 00:00:00 [code = SHINGLES VACCINES (#1)] Encounters Start End Encounter Admission Attending Care Care Encounter Source Date/Time Date/Time Type Type Clinicians Facility Department ID 2019-02-01 2019-02-01 Orders Doctor ISABEL [id number] 00:00:00 00:00:00 Only Unassigned, DON [id number] Natalia [facility] [id number] Results Test Description Test Time Test Comments Results Result Comments Source Folate RBC (group test) 2019-01-18 13:51:57 Test Item Value Reference Range Interpretation Comme nts RBC folate (test code = 2283-0) 1439 ng/mL 118-7741 [place] FaithEchocardiogram complete w contrast and 3D if [id number] 16:12:00Interface, Radiology Results In - 01/17/2019 4:12 PM CDT Echocardiography Report [address] [address], [place] [address] [facility].Name: PAN LANE.ID: [id number].Date: 01/17/2019 Refer.MD: JUNIOR HOWELL MD Exam Time: 2:28:00 PM Study Type:Routine Echo Height: 62in Weight: 165lb BSA: 1.76 m2 Age: 3 1945,73Y Sex: MALE BP: 130/60 HR: 83 bpm Sonogrphr: Ronald Rolon [facility] / Olga Lidia Gonzalez. Stat.:Inpatient Room: 1827 Study Status:Final Echo Event ID:[id number] Order ID: [id number] Reason for Study:Stroke, suspected cardiac etiologyHistory / Clinical:Atrial Fibrillation, Cancer, HypertensionProcedures:2D Echo, Colorflow Doppler, Intravenous Definity ContrastRace: S SUMMARY: LV EF is normal. LA volume is severely enlarged. FINDINGS: LV: LV size is normal. LV EF is normal. Overall wall motion is normal. Estimated EF is 65-69%RV: RV size is difficult to assess. RV systolic function is normal. LA: LA volume is severely enlarged.RA: RA size is normal.AO: Aortic root diameter is normal.MOLLY: No pericardial effusion.AV: Mild to moderate thickening and calcification of AV leaflets. MV: Moderate thickening and calcification of mitral leaflets. Mild mitral annular calcification. A trace of mitral regurgitation. PV:Pulmonic valve not well seen.TV: No structural TV abnormalities noted.Delgado: LV relaxation is impaired.Other: Insufficient TR jet to estimate PA systolic pressure. ---------MEASUREMENTS: 2DParasternal Long Alda LVOT 2 cm LA Ds 4 cm LVIDd 5.4 cm Index 3.1 cm/m2 Ao Rtd 3.7 cm Index 2.1 cm/m2 LVIDs 4.2 cm LV Mass 193.3 g (122-174) LV%fs 22.2 % LVM Index 109.8 g/m2 IVSd 0.9 cm RWT 0.4 LVPWd 1 cm LA Sng Plane LA Area 30.3 cm2 (8.8-23.4) LA Vol 115.6 ml Index 65.7 ml/m2 LA LngAx 6.7 cm RA Sng Plane RA Area 14 cm2 (8.3-19.5)RA Vol 30.1 ml Index 17.1 ml/m2 RA LngAx 6.1 cm DOPPLERLVOT Stroke Vol LVOT 2 cm LVOT CO 4.3 l/minLVOT TVI 21.2 cm LVOT CI 2.5 l/m/m2 LVOT Tm 426 msec HR 65 bpm LVOT SV 66.6 ml MV For Flow/Valve Assess MV pkVel 113.9 cm/s MV Mean G 1.8 mmHg MV pkPG 5.2 mmHg MV TVI 32.9 cm Signed 01/17/2019 04:12 Nikunj Osuna M.D.[place] MethodistCT Head Wo [id number] 11:30:28 Interface, Radiology Results - 01/17/2019 11:33 AM CDTEXAMINATION: CT HEAD WO CONTRASTCT IMAGING WAS PERFORMED WITH ITERATIVE RECONSTRUCTION TECHNIQUE AND/OR AUTOMATED EXPOSURE CONTROL TO REDUCE RADIATION DOSE.CLINICAL HISTORY: subdural hygromaCOMPARISON: MRI brain January 16, 2019FINDINGS: There is no acute intracranial abnormality. Specifically there is no intracranial hemorrhage, masseffect or acute infarction.Possible small subdural hygroma is again noted over the anterior right frontal convexity without significant mass effect. There is otherwise mild/moderate cerebral cortical volume loss.There are minimal microvascular white matter changes better demonstrated on the MRI. There are minimal chronic focal ischemic changes in the thalami bilaterally.Atherosclerotic calcificationsnoted in the distal internal carotid and vertebral arteries.There are postop changes and minimal mucosal thickening in the paranasal sinuses.IMPRESSION:No acute abnormality and no change from the priorstudy.[id number] MethodistHepatitis B surface [id number] 10:01:20 Test Item Value Reference Range Interpretation Comments Hepatitis B surface Ag (test Non-reactive Non-reactive code = 5195-3) Dia MethodistBasi metabolic [id number] 06:21:15 Test Item Value Reference Range Interpretation Comments Sodium (test code = 2951-2) 138 135- 148 mEq/L Potassium (test code = 2823-3) 4.2 3.5- 5.0 mEq/L Chloride (test code = 2075-0) 103 98- 112 mEq/L CO2 (test code = 2027-9) 24 24- 31 mEq/L Anion gap (test code = 38513-9) 11@ANIO 7- 15 mEq/L BUN (test code = 3094-0) 28 mg/dL 8-23 H Creatinine (test code = 2160-0) 2.80 mg/dL 0.7-1.2 H Glucose (test code = 2345-7) 117 mg/dL 65-99 H Calcium (test code = 28228-8) 8.8 mg/dL 8.8-10.2 Lab Interpretation (test code = Abnormal 57701-4) [place] MethodistEstimated [id number] 06:21:15 Test Item Value Reference Range Interpretation Comments Estimated GFR (test 21 mL/min/1.73 m2 Erin Jamaal [place] Units code = 5488) InterpretationG 1 >=90 Laury l or highG2 60-89 Mildly decrease dG3a 45-59 Mil dly to moderately decr xdigrV5r 30-44 Moderately to s everely decreasedG4 15-29 Severe ly decreasedG5 <15 Kidney major lureThe eGFR was calcul ated using the Chron ic Kidney Disease Epidemiology Collaboration ( CKD-EPI) equation. Interpretation is based on recommendati ons of the National Ki dney Foundation-Kidn ey Disease Outcome s Quality Initiat rupinder (NKF-KDOQI) pub lished in 2013. Lab Interpretation Abnormal (test code = 26139-9) [place] Methodist[facility] with platelet and [id number] 06:07:06 Test Item Value Reference Range Interpretation Comments WBC (test code = 18389-9) 4.37 4.50- 11.00 k/uL L RBC (test code = 79081-9) 3.19 m/uL 4.4-6 L HGB (test code = 718-7) 9.9 g/dL 14-18 L HCT (test code = 4544-3) 31.2 % 41-51 L MCV (test code = 787-2) 97.8 fL 82-100 MCH (test code = 785-6) 31.0 pg 27-34 MCHC (test code = 786-4) 31.7 g/dL 31-37 RDW - SD (test code = 48.3 fL 37-55 79254-1) MPV (test code = 96002-6) 10.2 fL 8.8-13.2 Platelet count (test code 193 150- 400 k/uL = 21564-5) Nucleated RBC (test code 0.00 /100 WBC = 14101-3) Neutrophils (test code = 62.7 % 39-69 05878-0) Lymphocytes (test code = 14.2 % 25-45 L 62190-6) Monocytes (test code = 13.0 % 0-10 H 44093-3) Eosinophils (test code = 9.2 % 0-5 H 75453-4) Basophils (test code = 0.7 % 0-1 75472-2) Immature granulocytes 0.2 % 0-1 "Immat ure (test code = 02446-4) granul ocytes" (promyelocytes, myelocytes, metamyelocytes) Lab Interpretation (test Abnormal code = 72082-1) [place] FaithPREMIER [facility]ALTH Neck W Wo [id number] 16:29:04Hm Interface, Radiology Results - 01/16/2019 4:32 PM CDTEXAMINATION: CT ANGIOGRAM NECK W WO CONTRASTCLINICAL HISTORY: strokeCOMPARISON: None.TECHNIQUE:Neck CTA with multi-planar MIP and volumetric rendering (3D) after bolus intravenous iodinated contrast administration was performed. All CT images were acquired using low-dose technique with automated exposure control.FINDINGS:Normal [facility] gumaro anatomy of the aortic arch. Calcified atherosclerosis of the aortic arch and origins the major branch vessels without significant stenosis.Calcified atherosclerosis of the right carotid bifurcation and proximal internal carotid artery with approximately 20% stenosis per NASCET criteria. No significant atherosclerosis or stenosis of the left carotid bifurcation or proximal internal carotid artery.There is no significant stenosis of the bilateral vertebral arteries. The vertebral arteries are codominant.IMPRESSION:No significant flow- limiting cervical carotid or vertebral artery stenosis.[id number] MethodistCTA Head W Wo [id number] 16:25:02Hm Interface, Radiology Results 01/16/2019 4:28 PM CDTEXAMINATION: CT ANGIOGRAM HEAD W WO CONTRASTCLINICAL HISTORY: strokeCOMPARISON: NoneTECHNIQUE: Imaging of the intracranial circulation was obtained from the skull base to the vertex during the arterial phase of enhancement. Postprocessing was performed with MIP multiplanar and 3D reconstructed images. CT imaging was performed with it erative reconstruction technique and/or automated exposure control to reduce radiation dose.FINDINGS:Calcified arteriosclerosis of the carotid siphons with luminal irregularity and multifocal mild narrowing. No focal stenosis of the middle or anterior cerebral arteries. No aneurysm of the anterior intracranial circulation. Right dominant anterior cerebral artery A1 segment.Calcified atherosclerosis of the vertebral artery V4 segments without focal stenosis. No focal stenosis of the basilar or posterior cerebral arteries. No aneurysm of the posterior intracranial circulation. Markedly diminutive or absent posterior communicating arteries.IMPRESSION:1. Multifocal mild narrowing of the carotid siphons secondary to calcified arteriosclerosis. No other focal stenosis of the anterior or posterior intracranial circulation.[facility]-[id number] Faith Vitamin D 25 hydroxy [id number] 14:58:04 Test Item Value Reference Range Interpretation Comments Vitamin D, 30.2 ng/mL 30-150 This assay repo rts the 25-hydroxy (test sum of 25-h ydroxy code = 1989-3) vitamin D3 an d 25-hydroxy fernando min D2. Reference range :0-17 years:Deficienc y: less than 20ng/mLOpt imum level: greater than or equal to 20 ng/ mL.18 years and older:Deficienc y: less than 20ng/mLInsuffic iency: 20-29 ng/mLOpti mum Level: 30-80 ng /mLThe assay reportabl e range is 3.4 155.9 n g/mL. Levels higher t garduno 150 ng/mL may be as sociated with toxicity.I f toxicity is cli nically suspected and t he reported result is >155.9 ng/mL,co ntact lab for alternative methods to obtain a def initive level.If separa te quantitation of 25-hydroxy fernando min D3 and 25-hydroxy vitamin D2 is needed, p katerinaase contact lab for alternative met hods. [place] MethodistHemoglobin [id number] 10:50:08 Test Item Value Reference Range Interpretation Comments Hemoglobin A1C (test 4.9 % 4-5.6 HbA1c c utoffs for code = 64871-4) diagnosing d iabetes:4.0% - 5.6% = normal 5.7% - 6.4% = increase d risk for diabetes (prediabetes) >=6.5% = diabetes Goals for glycemic contro l (ADA 2016)< 7.0% Ta rget for non cooper lts with diabetes. More or less stringent targe ts may be appropriate for individual jennifer ents. <7.5% Target for Children and ad olescents with type 1 cassandra betes. Dia CalebistMRI Brain Wo [id number] 10:13:52Hm Interface, Radiology Results Incoming - 01/16/2019 10:16 AM CDTEXAMINATION: MRI BRAIN WO CONTRASTC LINICAL HISTORY: NEURO DEFICIT ACUTE SINGLE PROGRESSING, STROKECOMPARISON: NoneTECHNIQUE: Multiplanar and multisequence MRI imaging of the brain was obtained without contrast.FINDINGS:A small CSF signal subdural collection measuring 7 mm in thickness is noted along the right frontal convexity, image 12 of series 6. A few scattered T2/FLAIR hyperintensities are noted along the periventricular white matter, nonspecific but likely related to trace chronic microvascular ischemic changes. No restricted diffusion identified to indicate recent infarct. No susceptibility identified to suggest hemosiderin deposition from prior hemorrhage. No mass, mass effect, or midline shift is seen.The basal ganglia, thalami, midbrain, jessy and cervicomedullary junction are unremarkable. The ventricles and sulci are unremarkable for patient's age. Sella turcica is normal in appearance. The basal cisterns are patent. The calvarium appears intact. The major intracranial vascular flow voids are present. The orbital contents are symmetric and unremarkable. The paranasal sinuses are unremarkable. The mastoid air cells and middle ear cavities are clear.IMPRESSION:Small 7 mm thick right frontal convexity subdural hygroma of doubtful clinical significance. No acute intracranial abnormality identified.[facility]-[id number] MethodistUrine [id number] 08:46:45 Test Item Value Reference Range Interpretation Comments Urine culture (test SEE COMMENT Bacteriu capo screen code = 9639565) negative. Dia MethodistUrinalysis screen and microscopy, with reflex to culture 2019-01-16 08:46:43 Test Item Value Reference Range Interpretation Comments Specimen site (test code = Clean catch 5949687) Color, UA (test code = 5778-6) Dark Yellow Appearance, UA (test code = Clear 5767-9) Specific gravity, UA (test code 1.019 1.001-1.035 = 5811-5) pH, UA (test code = 5803-2) 5.0 5.0-8.5 Protein, UA (test code = 3+ Negative A 07876-7) Glucose, UA (test code = 1+ Negative A 39656-4) Ketones, UA (test code = Negative Negative 2514-8) Bilirubin, UA (test code = Positive@UBIL Negative A 5770-3) Blood, UA (test code = 5794-3) Negative Negative Nitrite, UA (test code = Negative Negative 5802-4) Urobilinogen, UA (test code = 2.0 <2.0 A 38789-8) Leukocyte esterase, UA (test Negative Negative code = 5799-2) Epithelial cells, UA (test code 1 /HPF = 5787-7) WBC, UA (test code = 5821-4) 3 0- 1 /HPF H RBC, UA (test code = 86260-2) 1 0- 5 /HPF Bacteria, UA (test code = Few None seen 58572-6) Yeast, UA (test code = 30724-4) None seen Yeast with pseudohyphae, UA None seen (test code = 51381-5) Amorphous crystals (test code = Few 02513-3) Hyaline casts, UA (test code = >20 /LPF A 5796-8) Lab Interpretation (test code = Abnormal 13397-4) Dia MethodistHIV Ag/Ab [id number] 08:27:15 Test Item Value Reference Range Interpretation Comments HIV Ag/Ab combination (test code Non-reactive Non-reactive = 5299) Dia MethodistSedimentation [id number] 07:47:55 Test Item Value Reference Range Interpretation Comments Sedimentation rate (test code = 47 0- 10 mm/hr H 19265-9) Lab Interpretation (test code = Abnormal 87757-0) [facility] MethodistFolate [id number] 07:26:02 Test Item Value Reference Range Interpretation Comments Folate (test code = 2284-8) 11.3 ng/mL 4.8-24.2 [place] TurnerT4, [id number] 07:21:51 Test Item Value Reference Range Interpretation Comments T4, free (test code = 3024-7) 1.2 ng/dL 0.9-1.7 [place] TurnerThyroid stimulating [id number] 07:21:51 Test Item Value Reference Range Interpretation Comments TSH (test code = 3016-3) 4.51 0.27- 4.20 uIU/mL H Lab Interpretation (test code = Abnormal 20307-2) [place] TurnerLipid [id number] 07:15:48 Test Item Value Reference Interpretation Comments Range Cholesterol (test 140 mg/dL <200 code = 2093-3) Triglycerides (test 128 mg/dL <150 code = 2571-8) HDL cholesterol 39 mg/dL >40 L (test code = 2085-9) LDL cholesterol 82 mg/dL <100 Result obtai natalie by direct (test code = 2089-1) LDL hiram surement Lipid panel SeeBelow Total Cholester ol (mg/dL) interpretation (test < 200 code = 48417-4) Desirable 200-239 Borderline -high >=240 Hi gh Triglyceri david (mg/dL) <150 No rmal 150-199 Borderline-high 200-499 High >=500 Very high HDL Choles terol (mg/dL) <40 Low (male) < 40 Low (female) L DL Cholesterol (mg /dL) <100 Optimal 1 00-129 Near or above o ptimal 130-159 Borderline-high 160-189 High >=190 Very high Risk Cat ergories that modify LDL goals.Risk Catergories LDL goal (mg/dL )CHD and CHD risk equiva lent <100 (10-year risk >20%)Multiple ( 2+) risk factors < 130 (10-year risk = <20%)0-1 risk factors <160 (<10-ye ar risk) Defining levels of lipids in metabolic syndromeTriglyc erides > =150 mg/dLHDL Choles terol Men <40 mg/dL Women <40 mg/dL Non-HDL cholest nohemy is a second target f or therapy in personswith high triglycerides ( >=200 mg/dL) Lab Interpretation Abnormal (test code = 07972-4) Dia MethodistRheumatoid [id number] 07:15:48 Test Item Value Reference Range Interpretation Comments Rheumatoid factor (test code = 17 0- 13 IU/mL H 71703-5) Lab Interpretation (test code = Abnormal 01328-6) Dia MethodistHomocystine, [id number] 07:15:48 Test Item Value Reference Range Interpretation Comments Homocysteine (test 20.2 umol/L 0-15 H The risk for code = 59379-4) coronary vas cular disease increas es progressively w ith homocysteine concentration. A 3.4 times great er risk is associ ated with a homocyst eine concentration o f greater than 15.8 umol/L as medina red to a concentrat ion below 14.1 umol /L. Lab Interpretation Abnormal (test code = 08333-4) [facility] [id number] 22:10:52 Test Item Value Reference Range Interpretation Comments Sodium (test code = 139 135- 148 mEq/L 2951-2) Potassium (test code = 4.7 3.5- 5.0 mEq/L 2823-3) Chloride (test code = 101 98- 112 mEq/L 2075-0) CO2 (test code = 2027-9) 25 24- 31 mEq/L Anion gap (test code = 13@ANIO 7- 15 mEq/L 88128-5) BUN (test code = 3094-0) 19 mg/dL 8-23 Creatinine (test code = 2.58 mg/dL 0.7-1.2 H 2160-0) Glucose (test code = 127 mg/dL 65-99 H 2345-7) Calcium (test code = 8.9 mg/dL 8.8-10.2 96761-9) Protein (test code = 7.0 g/dL 6.3-8.3 [place] 2885-2) 4.6-7.0 g/dL 1 week 4.4-7.6 g/dL7 months-1year 5.1-7.3 g/dL 1-2 years 5.6-7.5 g/dL>3 years 6.0-8.0 g/dL18- 150 6.3-8.3 g/dL Albumin (test code = 3.2 g/dL 3.5-5 L 1751-7) A/G ratio (test code = 0.8 0.7-3.8 1759-0) Alkaline phosphatase 90 U/L 40-129 (test code = 6768-6) AST (test code = 1920-8) 21 U/L 10-50 ALT (test code = 1742-6) 14 U/L 5-50 Total bilirubin (test <0.2 0-1.2 code = 1975-2) Lab Interpretation (test Abnormal code = 86731-2) [place] thromboplastin time, [id number] 22:10:50 Test Item Value Reference Range Interpretation Comments PTT (test code = 33.8 23.0- 36.0 [place] [address]-2) unfractionated heparin is61.0-112.0 se conds which corresponds to Anti-Xa0.3-0.7 U/ml. [place] TurnerProthrombin time with [id number] 22:10:37 Test Item Value Reference Range Interpretation Comments Prothrombin time (test 13.8 11.5- 14.5 sec code = 5902-2) INR (test code = 1.1 The Interna tional 87573-8) Normalized Rati o (INR) is a therapeutic m onitoring tool for patien ts who are stable on oral anticoagulant t herapy. An INR of 2.0-3.0 is suggested for d eep vein thrombosis/pulm onary embolism. [place]
[2020-01-15] MEDS ORDERED: SOD POLYSTYREN SUL 15 GM/60 ML UCUP PO ONE (22:16)
[2020-01-15] MEDS ORDERED: D50W 25 GM/50 ML SYRINGE/VIAL IV PRN (22:18)
[2020-01-15] MEDS ORDERED: GLUCAGON 1 MG/VIAL IM PRN (22:18)
[2020-01-15] MEDS ORDERED: CALCIUM GLUC 10% INJ 4.65 MEQ in NA CHLORIDE 0.9% 100 ML IV ONE (22:19)
[2020-01-15 22:41] LABS: Arterial Blood Carboxyhemoglob 1.8 % (0-1.5); Blood Gas Oxyhemoglobin 93.1 % (94-97); Blood O2 Saturation 96.3 % (92-98.5)
[2020-01-15] MEDS ORDERED: SODIUM BICARB 50 MEQ/50ML VIAL ONE (22:53)
[2020-01-15] MEDS ORDERED: CALCIUM GLUCONATE 1 GM IVPB 1 GM/50 ML BAG IV ONE (22:58)
[2020-01-16 02:44] LABS: Potassium 5.7 mmol/L (3.5-5.1)
[2020-01-16 06:12] LABS: Absolute Lymphocytes (CBC) 0.6 K/uL (0.7-4.9); Basophils % 0.6 % (0-1.3); Hematocrit 21.2 % (39.6-49.0); Lymphocytes % 12.4 % (15.3-44.8); MPV 9.2 fL (7.6-11.3); RBC Red Blood Cell Count 2.36 M/uL (4.33-5.43)
[2020-01-16 06:23] LABS: Magnesium 2.7 mg/dL (1.8-2.4); Phosphorus 5.7 mg/dL (2.5-4.9)
[2020-01-16 06:25] LABS: Potassium 5.6 mmol/L (3.5-5.1); Thyroid Stimulating Hormone 3.89 uIU/mL (0.360-3.740)
[2020-01-16] MEDS ORDERED: D50W 25 GM/50 ML SYRINGE/VIAL IV ONE (07:45)
[2020-01-16] MEDS ORDERED: INSULIN -REGULAR HUMAN 50 UNIT/0.5 ML ML IV ONE (07:46)
[2020-01-16] MEDS ORDERED: D50W 25 GM/50 ML SYRINGE/VIAL IV PRN (07:46)
[2020-01-16] MEDS ORDERED: GLUCAGON 1 MG/VIAL IM PRN (07:46)
[2020-01-16] MEDS ORDERED: ALBUTEROL 2.5 MG/3 ML NEB SOL NEB ONE (07:47)
[2020-01-16] MEDS ORDERED: NA CHLORIDE 0.9% 500 ML IV ONE (07:48)
[2020-01-16] MEDS ORDERED: BUMETANIDE 1 MG/4 ML VIAL IV ONE (07:49)
--- NOTE | 2020-01-16 08:11 | RAD REPORT ---
EXAM DESCRIPTION: RAD - Chest Single View - 01/15/2020 11:12 pm CLINICAL HISTORY: Acute renal failure COMPARISON: None. TECHNIQUE: XR CHEST 1 VIEW 01/15/2020 10:13 PM CDT FINDINGS: The heart is moderately enlarged. Lungs are clear without consolidation, atelectasis, mass or edema. There is no pleural effusion. There is no pneumothorax. There are no acute osseous finding s. IMPRESSION: No definite pneumonia. Electronically signed by: Liam Khan MD 01/15/2020 10:57 PM CDT Due to temporary technical issues with the PACS/Fluency reporting system, reports are being signed by the in house radiologist without review as a courtesy to ensure prompt reporting. The interpreting r adiologist is fully responsible for the content of the report.
[2020-01-16] MEDS: PANTOPRAZOLE 40 MG INJ IVP SCH ×2 (08:20→20:51)
[2020-01-16] MEDS ORDERED: NA CHLORIDE 0.9% 250 ML ONE (10:53)
--- NOTE | 2020-01-16 13:18 | RAD REPORT ---
EXAM DESCRIPTION: US - Renal Ultrasound-Complete - 01/15/2020 9:09 pm CLINICAL HISTORY: Acute renal insufficiency COMPARISON: 2019 FINDINGS: The right kidney measures 12 cm with an increased echotexture. The left kidney measures 11 cm with an increased echotexture. A 1 centimeter left renal cyst Hydronephrosis is not seen. No gross abnormality of bladder is seen IMPRESSION: Increased renal echotexture consistent with parenchymal disease
--- NOTE | 2020-01-16 16:07 | P.PN ---
Subjective Date of Service: 01/16/20 Primary Care Provider: Jamel Chief Complaint: ARF, hyperkalemia, anemia Subjective: Doing well (Patient feels better after transfusions.) Physical Examination - Vital Signs Temperature: 98.6 F Blood Pressure: 144/65 Pulse: 71 Respirations: 15 Pulse Ox (%): 100 - Physical Exam General: Alert, Cooperative HEENT: Atraumatic Neck: Supple Respiratory: Clear to auscultation bilaterally Cardiovascular: Normal pulses, Regular rate/rhythm Integumentary: No tenderness/swelling Neurological: Normal speech, Normal strength at 5/5 x4 extr, Normal tone, Normal affect - Studies Laboratory Data (last 24 hrs) 01/15/20 11:48: Uric Acid 7.4 H D Medications List Reviewed: Yes Assessment & Plan Discharge Plan: Home Plan to discharge in: 48 Hours Physician Review Additional Text: Assessment Acute on chronic renal failure stage IV with hyperkalemia, 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 Renal function slightly improved. Patient received bicarb min. Patient also received blood. So far patient will receive 3 units of blood. Spoke with nephrology. Will continue to monitor closely. GI consulted. Patient likely requires EGD. Will reassess tomorrow. This may be able to be done as an outpatient. Anticipate discharge in the next 24-48 hr. Anemia likely of chronic disease but with noted guaiac-positive study with iron deficiency: Patient does not appear to have any significant bleed. Prior hemoglobin around 8 in July. Case discussed with hematology. They suspect this is likely GI related. Patient had EGD in the past with noted follow-ups. Spoke with GI today. Pro oval inpatient versus outpatient EGD after transfusion. Chronic diastolic CHF: Hold Lasix at this time. Continue fluid restriction. Will discuss further with nephrology Hypertension: Hold lisinopril. Will provide IV medication as needed Gout: review and restart medication Time Spent Managing Pts Care (In Minutes): 55
[2020-01-16] MEDS: NACHLORIDE 0.45% 1,000 ML with NA BICARB 8.4% 75 MEQ IV SCH ×2 (16:36)
[2020-01-16 18:08] LABS: Hematocrit 24.2 % (39.6-49.0)
--- NOTE | 2020-01-16 19:22 | CON ---
Date of Consultation: 01/16/2020 Reason For Consultation: Elevated BUN and creatinine, hyperkalemia, fluid management. 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 The glomerulosclerosis was 12/30 with interstitial fibrosis. Back in 2016, patient required dialysis up to November 2017 with Cytoxan and dialysis. The patient has been followed up in the office on regular basis. The patient last seen back in December 05. At that time, his creatinine was 2.3, BUN 56 with GFR 26, which is around his baseline. At that time, we increased his Lasix to 80 mg daily and continued his CellCept at 1000 b.i.d. The patient apparently on his regular lab for the followup found to have hemoglobin down to 5.6 with elevation of creatinine up to 3.5 with GFR down to 17, and hyperkalemia of 6.9. For that reason, we have been consulted. Over the night, patient received cocktail for the hyperkalemia, started on hydration. Potassium down to 5.8. Patient had some acidosis. For that reason, patient was started on bicarb drip. Patient feeling fine. No shortness of breath. No swelling. Past Medical History: Include. 1. Prostate CA/status post TURP and radiation back in 2015 and hormonal therapy. 2. Obstructive sleep apnea. 3. 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 Then, the patient was switched to CellCept, finished his Cytoxan back in July 2018, weaned from dialysis. Last dialysis was on April 20, 2019. The patient maintained on CellCept since then. 4. Hypertension. 5. Hyperlipidemia. 6. Edema. 7. Gout. 8. Iron-deficiency anemia. Allergy: No known drug allergies. Social History: Lives with family. Denies smoking. Denies drinking. Denies drug abuse. Past Surgical History: Include kidney biopsy. Social History: As above. Home Medications: Include Flomax, Lasix 80 daily, allopurinol, Bactrim, lisinopril, aspirin, Levaquin, metronidazole. Review of Systems: Head and Neck: No red eye. No ear pain. GI: No nausea, no vomiting. : No polyuria, no dysuria, no hematuria. PROCESS MECHANIC: Not applicable. Respiratory: No shortness of breath. Cardiovascular: No orthopnea. Endocrine: No polydipsia. Skin: No rash. Neuro: Has no neuropathy. Musculoskeletal: No joint pain. Physical Examination: Vital Signs: When I saw the patient, blood pressure of 144/65, pulse of 71, afebrile. Chest: Clear to auscultation. Heart: S1, S2. Regular. Abdomen: Soft, nontender. Extremity: No edema. Neurological: Alert, oriented x3. No focal. Laboratory Data: Sodium 144, potassium 5.6, bicarb 20, BUN 107, creatinine 3.2, GFR of 19, calcium 7.3, phosphorus 5.7, magnesium 2.7. Upon admission, sodium 143, potassium 6.9, bicarb 19, BUN 123, creatinine 3.7, calcium 7.1. WBC 5.1, H and H 6.5/21.2. Upon admission, hemoglobin 5.6/18.4. Current Medications: 1. Bicarb drip. 2. Bumex. 3. Zofran. 4. Pantoprazole. 5. Tylenol. Assessment And Plan: 1. Acute kidney injury, normal-sized kidney, on advanced chronic kidney disease, multifactorial, secondary to poor perfusion ATN over diuresis superimposed with Bactrim, doubt to be activation of autoimmune disease given the plateau after we stopped the insult for the medication. Anyhow, we will closely monitor the patient. I am going to send for serology to evaluate if there is any further activity. 2. I am going to hold the diuresis, hold the Bactrim, and we will follow up. 3. Hyperkalemia secondary to renal failure/ . I agree with holding the Bactrim. We will continue current bicarb drip and we will monitor. 4. We will avoid any Kayexalate. 5. Acidosis secondary to renal failure. Continue bicarb drip. 6. Hypertension, currently controlled optimal, keep holding the diuresis. 7. Gastrointestinal bleed. We will follow up with GI. We will monitor the patient. RODOLFO/BRIGIDA Voice ID: [id number] Report ID: [id number] KRISTEL
[2020-01-17] MEDS ORDERED: CALCIUM GLUC 10% INJ 9.3 MEQ in NA CHLORIDE 0.9% 100 ML IV ONE (01:54)
[2020-01-17 05:42] LABS: Magnesium 2.4 mg/dL (1.8-2.4); Phosphorus 4.7 mg/dL (2.5-4.9); Potassium 5.3 mmol/L (3.5-5.1)
[2020-01-17 05:51] LABS: Absolute Lymphocytes (CBC) 0.3 K/uL (0.7-4.9); Basophils % 0.5 % (0-1.3); Hematocrit 22.2 % (39.6-49.0); Lymphocytes % 7.7 % (15.3-44.8); MPV 9.1 fL (7.6-11.3)
--- NOTE | 2020-01-17 08:06 | ECHO ---
HEIGHT: 5 ft 2 in WEIGHT: 175 lb 0 oz DATE OF STUDY: 01/16/[address]: Alex Galicia DO 2-DIMENSIONAL: YES M.MODE: YES DOPPLER: YES COLOR FLOW: YES TDS: NO PORTABLE: NO DEFINITY: NO BUBBLE STUDY: NO DIAGNOSIS: ACUTE RENAL FAILURE CARDIAC HISTORY: CATHERIZATION: NO SURGERY: NO PROSTHETIC VALVE: NO PACEMAKER: NO MEASUREMENTS (cm) DIASTOLIC (NORMALS) SYSTOLIC (NORMALS) IVSd 1.2 (0.6-1.2) LA Diam 3.9 (1.9-4.0) LVEF 79% LVIDd 5.0 (3.5-5.7) LVIDs 2.6 (2.0-3.5) %FS 48% LVPWd 1.3 (0.6-1.2) Ao Diam 3.2 (2.0-3.7) 2 DIMENSIONAL ASSESSMENT: RIGHT ATRIUM: NORMAL LEFT ATRIUM: NORMAL RIGHT VENTRICLE: NORMAL LEFT VENTRICLE: LEFT VENTRICULAR HYPERTROPHY TRICUSPID VALVE: NORMAL MITRAL VALVE: MITRAL ANNULAR CALCIFICATION PULMONIC VALVE: NORMAL AORTIC VALVE: SCLEROSIS PERICARDIAL EFFUSION: NONE AORTIC ROOT: NORMAL LEFT VENTRICULAR WALL MOTION: NORMAL DOPPLER/COLOR FLOW: NORMAL COMMENTS: LEFT VENTRICULAR HYPERTROPHY. AORTIC SCLEROSIS WITH NO STENOSIS. MITRAL ANNULAR CALCIFICATION. NORMAL LEFT VENTRIUCLAR EJECTION FRACTION. TECHNOLOGIST: Navin MCKENZIE
[2020-01-17] MEDS: PANTOPRAZOLE 40 MG INJ IVP SCH ×2 (08:19→21:49)
[2020-01-17] MEDS: SODIUM CHLORIDE 0.9% 10ML INJ IV PRN (08:20)
[2020-01-17] MEDS ORDERED: SOD POLYSTYREN SUL 15 GM/60 ML UCUP PO ONE (09:58)
[2020-01-17] MEDS ORDERED: INSULIN -REGULAR HUMAN 50 UNIT/0.5 ML ML IV ONE (10:57)
[2020-01-17] MEDS ORDERED: D50W 25 GM/50 ML SYRINGE/VIAL IV ONE (10:57)
[2020-01-17] MEDS ORDERED: FUROSEMIDE 40 MG/4 ML VIAL IV ONE (12:14)
[2020-01-17] MEDS ORDERED: FUROSEMIDE 20 MG/ 2ML VIAL IV SCH (14:13)
[2020-01-17] MEDS ORDERED: NA CHLORIDE 0.9% 250 ML ONE (14:52)
[2020-01-17] MEDS ORDERED: ALBUTEROL INHALER 60 PUFF/8 GM IH PRN (15:11)
[2020-01-17] MEDS ORDERED: EPOETIN ALFA-EPBX 10,000 UNIT/ML VIAL SQ SCH (16:00)
[2020-01-17] MEDS ORDERED: SOD FERRIC GLUC COMPLX/SUCROSE 250 MG in NA CHLORIDE 0.9% 250 ML IV SCH ×2 (16:00→18:00)
[2020-01-17] MEDS: prednisoLONE 15 MG/5 ML OSYR PO SCH (16:51)
[2020-01-17] MEDS ORDERED: IPRATROPIUM 200 PUFF/12.9 GM INH IH SCH (17:00)
--- NOTE | 2020-01-17 17:44 | P.PN ---
Subjective Date of Service: 01/17/20 Primary Care Provider: Jamel Chief Complaint: ARF, hyperkalemia, anemia Subjective: Improving, Doing well Physical Examination - Vital Signs Temperature: 97.4 F Blood Pressure: 155/72 Pulse: 70 Respirations: 19 Pulse Ox (%): 100 - Physical Exam General: Alert HEENT: Atraumatic Neck: Supple Respiratory: Clear to auscultation bilaterally, Normal air movement Cardiovascular: Normal pulses, Regular rate/rhythm Neurological: Normal speech, Normal strength at 5/5 x4 extr, Normal tone, Normal affect - Studies Medications List Reviewed: Yes Assessment & Plan Discharge Plan: Home Plan to discharge in: 24 Hours Physician Review Additional Text: Assessment Acute on chronic renal failure stage IV with hyperkalemia, history of ANCA vas culitis requiring hemodialysis in the past Anemia likely of chronic disease but with noted guaiac-positive study with iron deficiency Chronic diastolic CHF Hypertension Gout Plan Acute on chronic renal failure stage IV with hyperkalemia, 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 Will continue monitor closely. Continue with recommendations by nephrology. Nephrology continues to address hyperkalemia. Patient has received 3 units of packed red blood cells. Hemoglobin still low. Will provide another unit of blood. Maintain hemoglobin above 7.5. Case discussed with GI. Likely outpatient GI workup wreck can be done. Also spoke to Hematology. Patient would need follow up with hematology. Patient will likely require Procrit and/or IV iron infusions as an outpatient. Anticipate discharge in the next 24 hr. Anemia likely of chronic disease but with noted guaiac-positive study with iron deficiency: As mentioned above. GI plans for GI workup as an outpatient. Hematology plans for Procrit and/or IV iron infusions as an outpatient. Chronic diastolic CHF: Continue medications Hypertension: Will review and adjust Gout: review and restart medication Time Spent Managing Pts Care (In Minutes): 55
--- NOTE | 2020-01-17 20:06 | PN ---
Date of Progress Note: 01/17/2020 Subjective: Patient was admitted with symptomatic anemia, hyperkalemia, acute kidney injury. Patien t was started on gentle hydration. BUN has been improved significantly. Patient received 2 units of blood transfusion, tolerated well. Patient is not complaining of any shortness of breath. Physical Examination: Vital Signs: Blood pressure 135/62, pulse of 79, afebrile. Patient had good urine output of 900. Chest: Wheezing bilateral. Heart: S1, S2. Regular. Abdomen: Soft, nontender. Extremities: Trace edema. Neurologic: Alert, oriented x3. No focal. Laboratory Data: WBC 4.5, H and H 7.1/22.2, platelets 175. Sodium 147, potassium 5.3, bicarb 23, BU N 85, creatinine 2.3, calcium 7.5, phosphorus 4.7, magnesium 2.4. TSH 3.8. Current Medications: The patient on include: 1.Bumex. 2.Zofran. 3.Pantoprazole. 4.Bicarb drip. Assessment And Plan: 1.Acute kidney injury on chronic kidney disease. 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 Patient acute component was secondary to Bactrim, over diuresed, recover, back to baseline, looked to me normal volume to the wet side. I am going to go ahead and di scontinue IV fluid. Start the patient on low dose of Lasix and we will monitor the patient. 2.Hypertension, controlled optimal. Continue current medication. 3.Anemia secondary to gastrointestinal loss/iron-deficiency anemia, status post transfusion, recover plateau. We will follow up H and H. I am going to start the patient on IV iron and we will follow up. Patient may need LINDY also. 4.Hyperkalemia secondary to renal failure, Bactrim, and gastrointestinal bleed, recover, currently m arginal. I do not see the need for aggressive treatment. We will keep avoiding Kayexalate. I am go ing to give single dose of Lasix. 5.Acidosis secondary to renal failure, recover, resolve. I am going to start the patient on sodium bicarb orally. We will discontinue bicarb drip. 6.Wheezing, possible secondary to chronic obstructive pulmonary disease. I am going to start the pa tient on inhaler treatment with low dose of prednisone and we will follow up. 7.Vasculitis, anti-neutrophil cytoplasmic autoantibody induced. Currently with symptomatic anemia a nd acute kidney injury. Hold Bactrim. We will resume CellCept as outpatient. MISSAEL Voice ID: [id number] Report ID: [id number]
[2020-01-17] MEDS: SODIUM BICARB 325 MG TAB PO SCH (21:50)
[2020-01-17 21:53] VITALS: O2SAT 98
--- NOTE | 2020-01-17 22:42 | CON ---
Date of Consultation: 01/17/2020 Reason For Consultation: Severe anemia with acute on chronic renal failure. History Of Present Illness: Patient is a 74-year-old male with history of autoimmune vascul itis, chronic kidney disease, hypertension, congestive heart failure, who presented to the hospital w ith acute renal failure, hyperkalemia, anemia. He has had a long history of anemia. He has had outp atient EGDs, probably colonoscopies in the past. He says he cannot recollect when he had those last procedures. Patient denies any melena, hematochezia, hematemesis, coffee-ground emesis, hematuria, d ysuria, polydipsia, however, in the emergency room, he was heme positive. Past Medical History: Significant for chronic kidney disease; hypertension; benign prostatic hypertr ophy; gout; prostate cancer, status post prostate resection; congestive heart failure; autoimmune vas culitis; laparoscopic cholecystectomy; right hip surgery with pins in place. Family History: Father of old age. Mother with heart disease, diabetes, coronary artery diseas e. Brother with hypertension, diabetes. Sister with hypertension and cancer. Social History: . No children. No tobacco. No alcohol. Review of Systems: Patient has anemia of chronic disease, weakness, malaise. He says he feels better since being in [facility] pital, hyperkalemia was on admission. He denies any melena, hematochezia, hematemesis, coffee-ground emesis, hematuria, dysuria, polydipsia, hemoptysis, chest pain, shortness of breath, seizure, syncop e. No depression or anxiety; some lower extremity edema, otherwise negative. Physical Examination: Vital Signs: Patient is 5 feet 2 inches, 175 pounds, BMI 32 kg/sq m. General: Obese male, lying in bed, in no acute distress. HEENT: Normocephalic, atraumatic. Anicteric. Pupils equal, round, and reactive to light. Extraocu lar movements are intact. Oropharynx is clear. Neck: Supple, no masses. Respirations: Clear to auscultation bilaterally. Cardiac: Regular rate and rhythm. No gallop or rub. Gastrointestinal: Positive bowel sounds. Soft, nontender, nondistended. No hepatosplenomegaly. Extremities: No clubbing, cyanosis, or edema. Maybe some trace lower extremity edema, 2+ pulses. Neuro: Alert and oriented x3. Grossly nonfocal. 5/5 motor strength. Sensation intact to light lala ch. Laboratory Data: Patient has a white count of 4.5; hemoglobin of 7.1 up from 6.5 yesterday, 5.6 on . He has an MCV of the 88.9; on admission, it was 91.1. He had a platelet count of 175, polys of 75%, lymphocytes 8%, monocytes 12%, eosinophils 5%. Blood gas on the showed a pH of 7.16, pCO2 o f 42, pO2 of 84, FiO2 , O2 saturation of 96.3%. The patient has a sodium 147, potassium 5. 3, chloride 119, bicarb 23, BUN of 85, creatinine of 2.35, glucose 101, calcium 7.5, phosphorus of 4. 7, magnesium 2.4. TSH of 3.89, free T4 of 0.86. COVID testing is pending at this time. Chest x-ray showed no definite pneumonia. Impression: 1.Severe anemia secondary to anemia of chronic disease with acute on chronic renal failure, heme-pos itive stool. Hemoglobin 5.6 up to 7.1 today with blood transfusions. He has had prior EGDs, colonos copies it appears in the past by his limited recollection. 2.Acute on chronic renal failure with hyperkalemia. The renal service has been consulted. 3.History of chronic kidney disease, hypertension, benign prostatic hypertrophy, gout, prostate canc er, congestive heart failure, autoimmune vasculitis, laparoscopic cholecystectomy, right hip surgery with pins, and prostate surgery. Recommendations: 1.Proceed with outpatient EGD and possibly colonoscopy as awaiting COVID-19 testing. 2.Await COVID-19 test results. If negative, proceed with endoscopic procedure. 3.Serial H and H and then transfuse p.r.n. 4.PPI therapy in the setting of acute on chronic renal failure, otherwise use Pepcid. JOCELYN/BRIGIDA Voice ID: [id number] Report ID: [id number]
[2020-01-18 06:17] LABS: Magnesium 2.2 mg/dL (1.8-2.4); Potassium 5.3 mmol/L (3.5-5.1)
[2020-01-18 06:34] LABS: Absolute Lymphocytes (CBC) 0.6 K/uL (0.7-4.9); Basophils % 0.3 % (0-1.3); Hematocrit 26.6 % (39.6-49.0); Lymphocytes % 11.5 % (15.3-44.8); MPV 9.4 fL (7.6-11.3); RBC Red Blood Cell Count 2.98 M/uL (4.33-5.43)
[2020-01-18] MEDS: SODIUM BICARB 325 MG TAB PO SCH (08:20)
[2020-01-18] MEDS: PANTOPRAZOLE 40 MG INJ IVP SCH (08:21)
[2020-01-18] MEDS: SODIUM CHLORIDE 0.9% 10ML INJ IV PRN (08:22)
[2020-01-18] MEDS ORDERED: ASPIRIN 81 MG CHEWABLE TABLET PO SCH (09:00)
[2020-01-18] MEDS ORDERED: allopurinoL 100 MG TAB PO SCH (09:00)
[2020-01-18] MEDS ORDERED: TAMSULOSIN 0.4 MG SR CAP PO SCH (09:00)
[2020-01-18] MEDS ORDERED: HOME MED 1 EA UNK (Furosemide [Lasix] 80 MG) PO SCH (09:00)
[2020-01-18] MEDS ORDERED: FUROSEMIDE 40 MG TABLET PO SCH (09:00)
--- NOTE | 2020-01-18 10:32 | P.PN ---
Subjective Date of Service: 01/19/20 Primary Care Provider: Jamel Chief Complaint: ARF, hyperkalemia, anemia Subjective: Improving Subjective pt was admitted with symptomatic anemia , Latanya and hyperkalemia today no overnight events Cr down to baseline , K 5.3 pt can be discharged from nephrology point of view will prescribe Lokelma/veltassa as an OP steroids an tapering will follow in nephrology clinic in 1-2 wks Physical exam general: AAOX3, NAD , obese Neck; Supple, No elevated JVD hear: RRR, normal S1,2 no murmur or rub Chest: CTAB, no rlaes or wheezes Abdomen: Soft , Nt Extremities No edema or ulcer Assessment And Plan: LATANYA on CKD due to overdiuresis resolved lasix resumed will follow as an OP hyperkalmeia due to LATANYA and bactrim will start Lokelma/veltassa as an OP HX of ANCA vasculitis to resume cellcept as an OP HAGMA resolved sodium bicarb 650mg daily Acute on chronic anemia Po iron f/u with hematology total time spent 45 min Physical Examination - Vital Signs Temperature: 98.2 F Blood Pressure: 154/70 Pulse: 75 Respirations: 16 Pulse Ox (%): 92 - Studies Medications List Reviewed: Yes
--- NOTE | 2020-01-18 12:53 | P.DS ---
Admission Date: 01/15/20 Discharge Date: 01/18/20 Primary Care Provider: Dr. Mccullough; Nephrology-Dr. Diaz; Onc/Hem-Dr. Minaya Disposition: ROUTINE DISCHARGE Discharge Condition: GOOD Reason for Admission: ARF, hyperkalemia, anemia Consultations: Hematology-Dr. Minaya Nephrology-Dr. Diaz Procedures: ECHO: EF 79% LEFT VENTRICULAR WALL MOTION: NORMAL DOPPLER/COLOR FLOW: NORMAL COMMENTS: LEFT VENTRICULAR HYPERTROPHY. AORTIC SCLEROSIS WITH NO STENOSIS. MITRAL ANNULAR CALCIFICATION. NORMAL LEFT VENTRIUCLAR EJECTION FRACTION. Renal US: COMPARISON: 2019 FINDINGS: The right kidney measures 12 cm with an increased echotexture. The left kidney measures 11 cm with an increased echotexture. A 1 centimeter left renal cyst Hydronephrosis is not seen. 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 The patient was admitted for further evaluation and treatment. Hospital Course: Patient presented with acute on chronic renal failure stage 4 with hyperkalemia. Patient with history of ANCA vasculitis requiring dialysis in the past. Patient had lab done prior to hospitalization. Nephrology recommended admission due to acute on chronic renal failure and anemia. During the course of his stay the patient was treated for his hyperkalemia. Patient also required 3 units of packed red blood cells. Hemoglobin now stable. Case discussed at length with nephrology, GI and Hematology/Oncology. At discharge for his chronic renal disease and hyperkalemia, Nephrology plans to start him on Lokelma 10 g daily. Rx provided. Nephrology also further recommends to discontinue lisinopril and Bactrim. Patient previously on CellCept. This also has been discontinued. Nephrology will further address this in detail within 1 week. Recommend to recheck lab-BMP at that time. The patient continue with a 1500 cc per day fluid restriction and low-salt diet. Recommend to monitor his weight daily. If his weight increases by more than 5 lb he is to contact nephrology for further recommendation. Patient will continue his prior home medications. Recommend follow up with nephrology within 1 week. As for his anemia that as stated above patient received blood. Hemoglobin stable. Case discussed at length with GI. GI recommends outpatient evaluation. This will include a EGD and colonoscopy. Recommend follow up with GI within 1- 2 weeks to further address. Recommend to recheck lab-CBC in 1 week to monitors progress. Case also discuss with hematology/oncology. Patient will need to make arrangements for follow up with Hematology-Oncology for Procrit injections and/or iron infusions as an outpatient. This can be further range with the help of Nephrology. Patient with chronic diastolic CHF, BPH, hypertension and gout. At discharge patient will continue with allopurinol 100 mg daily, aspirin 81 mg daily, Lasix 80 mg daily, and Flomax 0.4 mg daily. Vital Signs/Physical Exam: Temp Pulse Resp BP Pulse Ox 98.2 F 75 16 154/70 H 92 01/18/20 10:32 01/18/20 10:32 01/18/20 10:32 01/18/20 10:32 01/18/20 10:32 General: Alert, In no apparent distress, Oriented x3, Cooperative HEENT: Atraumatic Neck: Supple Respiratory: Clear to auscultation bilaterally, Normal air movement Cardiovascular: Normal pulses, Regular rate/rhythm Gastrointestinal: Normal bowel sounds, Soft and benign, Non-distended Neurological: Normal speech, Normal strength at 5/5 x4 extr, Normal tone, Normal affect Laboratory Data at Discharge: WBC 5.0 K/uL (4.3-10.9) 01/18/20 05:33 Hgb 8.6 g/dL (13.6-17.9) L 01/18/20 05:33 Hct 26.6 % (39.6-49.0) L D 01/18/20 05:33 Plt Count 201 K/uL (152-406) 01/18/20 05:33 Sodium 148 mmol/L (136-145) H 01/18/20 05:33 Potassium 5.3 mmol/L (3.5-5.1) H 01/18/20 05:33 BUN 67 mg/dL (7-18) H 01/18/20 05:33 Creatinine 2.15 mg/dL (0.55-1.3) H 01/18/20 05:33 Glucose 124 mg/dL (74-106) H 01/18/20 05:33 Uric Acid 7.4 mg/dL (3.5-7.2) H D 01/15/20 11:48 Phosphorus 4.7 mg/dL (2.5-4.9) 01/17/20 05:06 Magnesium 2.2 mg/dL (1.8-2.4) 01/18/20 05:33 Total Bilirubin 0.2 mg/dL (0.2-1.0) 01/15/20 11:48 AST 13 U/L (15-37) L 01/15/20 11:48 ALT 16 U/L (12-78) 01/15/20 11:48 Alkaline Phosphatase 99 U/L (45-117) 01/15/20 11:48 Home Medications: Tamsulosin HCl [Flomax] 0.4 mg PO DAILY 10/15/15 Furosemide [Lasix] 80 mg PO DAILY 10/25/18 allopurinoL [Zyloprim*] 100 mg PO DAILY 05/15/19 Aspirin 81 mg PO DAILY 08/08/19 Sodium Zirconium Cyclosilicate [Lokelma] 10 gm PO DAILY #15 powd.pack 01/18/20 New Medications: Sodium Zirconium Cyclosilicate [Lokelma] 10 gm PO DAILY #15 powd.pack Patient Discharge Instructions: 1. Recommend follow up with PCP in 1 week. 2. Patient presented with acute on chronic renal failure stage 4 with hyperkalemia. Patient with history of ANCA vasculitis requiring dialysis in the past. Patient had lab done prior to hospitalization. Nephrology recommended admission due to acute on chronic renal failure and anemia. During the course of his stay the patient was treated for his hyperkalemia. Patient also required 3 units of packed red blood cells. Hemoglobin now stable. Case discussed at length with nephrology, GI and Hematology/Oncology. At discharge for his chron ic renal disease and hyperkalemia, Nephrology plans to start him on Lokelma 10 g daily. Rx provided. Nephrology also further recommends to discontinue lisinopril and Bactrim. Patient previously on CellCept. This also has been discontinued. Nephrology will further address this in detail within 1 week. Recommend to recheck lab-BMP at that time. The patient continue with a 1500 cc per day fluid restriction and low-salt diet. Recommend to monitor his weight daily. If his weight increases by more than 5 lb he is to contact nephrology for further recommendation. Patient will continue his prior home medications. Recommend follow up with nephrology within 1 week. 3. As for his anemia that as stated above patient received blood. Hemoglobin stable. Case discussed at length with GI. GI recommends outpatient evaluation. This will include a EGD and colonoscopy. Recommend follow up with GI within 1-2 weeks to further address. Recommend to recheck lab-CBC in 1 week to monitors progress. Case also discuss with hematology/oncology. Patient will need to make arrangements for follow up with Hematology-Oncology for Procrit injections and/or iron infusions as an outpatient. This can be further range with the help of Nephrology. 4. Patient with chronic diastolic CHF, BPH, hypertension and gout. At discharge patient will continue with allopurinol 100 mg daily, aspirin 81 mg daily, Lasix 80 mg daily, and Flomax 0.4 mg daily. Diet: AHA Activity: Ad regino Time spent managing pt's care (in minutes): 55
[2020-01-18] MEDS: prednisoLONE 15 MG/5 ML OSYR PO SCH (16:00)
[2020-01-19 15:47] VITALS: BP 154/70; TEMP 98.2
[2020-01-19 20:07] LABS: Erythropoietin 76.1 mIU/mL (2.6-18.5)
== END 2020-01-18 16:29 | disposition home or self-care (01) | DRG 683 ==
LOC: ER 10:52 → ERHOLD 13:39 → 2ND 14:38
PROVIDERS: ADMIT Family Medicine; ATTEND Family Medicine
PROC: 30233N1 Transfusion of Nonautologous Red Blood Cells into Peripheral Vein, Percutaneous Approach (ICD-10-PCS; principal; 2020-01-17)
DX: N17.9 Acute kidney failure, unspecified (principal); I13.0 Hypertensive heart and chronic kidney disease with heart failure and stage 1 through stage 4 chronic kidney disease, or unspecified chronic kidney disease; I50.32 Chronic diastolic (congestive) heart failure; E87.2 Acidosis; K92.2 Gastrointestinal hemorrhage, unspecified; D62 Acute posthemorrhagic anemia; Z85.46 Personal history of malignant neoplasm of prostate; Z90.49 Acquired absence of other specified parts of digestive tract; Z79.82 Long term (current) use of aspirin; Z79.899 Other long term (current) drug therapy; E87.5 Hyperkalemia; D63.8 Anemia in other chronic diseases classified elsewhere; M10.9 Gout, unspecified; N18.4 Chronic kidney disease, stage 4 (severe); Z11.59 Encounter for screening for other viral diseases; K21.9 Gastro-esophageal reflux disease without esophagitis; D50.9 Iron deficiency anemia, unspecified; J44.9 Chronic obstructive pulmonary disease, unspecified; I77.6 Arteritis, unspecified; N40.0 Benign prostatic hyperplasia without lower urinary tract symptoms
CPT/HCPCS: 36415; 36430; 71045; 76770; 80048; 80053; 82248; 82550; 82607; 82668; 82728; 82746; 82805; 82947; 83010; 83520; 83540; 83615; 83735; 84100; 84132; 84439; 84443; 84484; 84550; 85014; 85018; 85025; 85044; 86021; 86160; 86850; 86880; 86900; 86901; 93005; 93306; 94640; 99285; C9113; J0610; J1940; J2916; J7030; J7040; J7050; J7510; P9016; Q5106; U0002

== ENCOUNTER 2020-03-03 16:30 | Emergency (ER) | payer OTHER ==
--- OUTSIDE RECORDS SUMMARY | 2020-03-03 16:33 | XMS REPORT | Clinical Summary ---
:1945 Author Organization [facility] Address [address] [place] [address] Care Team Providers Name Role Phone Asked, No Pcp Primary Care Provider Unavailable Allergies No Known Allergies Medications Medication Sig Dispensed Refills Start Date End Date Status blood-glucose meter Use as instructed 1 each 0 11/25/2017 Active (glucose monitoring kit) kit tamsulosin (FLOMAX) Take 0.4 mg by 0 Active 0.4 mg mouth daily. capsule,extended release 24hr pantoprazole Take 40 mg by mouth 0 Active (PROTONIX) 40 MG EC daily. tablet vit B complex-vitamin Take 1 tablet by 0 Active C-folic acid mouth daily. (NEPHRO-ALICIA OTC) 0.8 mg tablet sulfamethoxazole-trim Take 1 tablet by 0 Active ethoprim (BACTRIM DS) mouth every other 800-160 mg per tablet day. metoprolol tartrate Take 12.5 mg by 0 Active (LOPRESSOR) 25 mg mouth 2 (two) times tablet a day. 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
--- OUTSIDE RECORDS SUMMARY | 2020-03-03 16:33 | XMS REPORT | Continuity of Care Document ---
:1945 Author Organization [facility] t Address [address] [place] [address] [address]. [address] [place] [address] Care Team Providers Name Role Phone Asked, No Pcp Primary Care Physician Unavailable Doctor Unassigned, Name Attending Clinician Unavailable Problems Condition Condition Condition Status Onset Resolution Last Treating Co mments Source Name Details Category Date Date Treatment Clinician Date Slurred Slurred Disease Active [place] speech speech 7-08 Methodi 00:00: st 00 SCAR (acute SCAR (acute Disease [facility] 4[facility]28 Methodi injury) injury) 00:00: st 00 Acute Acute Disease Active [place] renal renal 1-07 Methodi failure failure 00:00: st (ARF) (ARF) 00 Renal Renal Disease Active [place] failure failure 9-11 Methodi 00:00: st 00 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[place] (rapidly (rapidly 7-02 Method i progressiv progressiv 00:00: st e e 00 glomerulon glomerulon ephritis) ephritis) Rapidly Rapidly Disease Active [place] progressiv progressiv 5-17 Me thodi e e 00:00: st glomerulon glomerulon 00 ephritis ephritis Normocytic Normocytic Disease Active H [place] anemia anemia 5-17 Methodi 00:00: st 00 Other Other Disease Active [place] proteinuri proteinuri 5-17 Me thodi a a 00:00: st 00 Essential Essential Disease Active Sarah ston hypertensi hypertensi 5-17 Me thodi on on 00:00: st 00 Acute Acute Disease Active [place] renal renal 5-12 Methodi failure failure 00:00: st 00 Allergies, Adverse Reactions, Alerts This patient has no known allergies or adverse reactions. Family History Family Member Diagnosis Comments Start Date Stop Date Source Maternal Diabetes type II [place] grandmother Religious Natural sister Alzheimer's disease H megha Religious Natural sister Diabetes type II Kailyn trejo Religious Natural sister Hypertension [facility] Social History Social Habit Start Date Stop Date Quantity Comments Source Sex Assigned At [facility] ethodi Cigarettes smoked 2018-01-09 2018-01-09 [facility] current (pack per 00:00:00 00:00:00 day) - Reported Cigarette 2018-01-09 2018-01-09 [place] Caleb ist pack-years 00:00:00 00:00:00 Alcohol intake 2018-01-09 2018-01-09 Current drinker Yahir reed Religious 00:00:00 00:00:00 of alcohol (finding) Alcohol Comment 2017-11-19 2017-11-19 per week [facility] triciaodi 00:00:00 00:00:00 History of tobacco 1969-11-19 1979-07-22 Current smoker Davidson chen Religious use 00:00:00 00:00:00 Smoking Status Start Date Stop Date Source Former smoker 2018-01-09 00:00:00 2018-01-09 00:00:00 [facility] Medications Ordered Filled Start Stop Current Ordering Indication Dosage Frequency Signature Comments Components Source Medication Medication Date Date Medication? Clinician (SIG) Name Name tamsulosin Yes .4mg QD Take 0.4 Sarah ston (FLOMAX) 7-10 mg by Methodi 0.4 mg 17:11: mouth st capsule,ext 13 daily. ended release 24hr pantoprazol Yes 40mg QD Take 40 mg Dia e 7-10 by mouth Methodi (PROTONIX) 17:11: daily. st 40 MG EC 13 tablet vit B Yes 1{tbl} QD Take 1 South complex-vit 7-10 tablet by Met tl real 17:11: mouth st C-folic 13 daily. acid (NEPHRO-VIT E OTC) 0.8 mg tablet sulfamethox Yes 1{tbl} Q2D Take 1 Davidson jaquezmaya azole-trime 7-10 tablet by Met hodi thoprim 17:11: mouth st (BACTRIM 13 every DS) 800-160 other day. mg per tablet metoprolol Yes 12.5mg Q.5D Take 12.5 Dia tartrate 7-10 mg by Methodi (LOPRESSOR) 17:11: mouth 2 st 25 mg 13 (two) tablet times a day. blood-gluco Yes Use as [place] meter 5-18 instructed Metho di (glucose 00:00: st monitoring 00 kit) kit Procedures This patient has no known procedures. Plan of Care Planned Activity Planned Date Details Comments Source Future Scheduled 2020-04-10 INFLUENZA VACCINE Domo mitchell Religious Test 00:00:00 [code = INFLUENZA VACCINE] Future Scheduled 2009 65+ PNEUMOCOCCAL Dia Religious Test 00:00:00 VACCINE (1 of 2 - PCV13) [code = 65+ PNEUMOCOCCAL VACCINE (1 of 2 - PCV13)] Future Scheduled 1994 COLONOSCOPY SCREENING [facility] Religious Test 00:00:00 [code = COLONOSCOPY SCREENING] Future Scheduled 1994 SHINGLES VACCINES (#1) H sara Religious Test 00:00:00 [code = SHINGLES VACCINES (#1)] Encounters Start End Encounter Admission Attending Care Care Encounter Source Date/Time Date/Time Type Type Clinicians Facility Department ID 2019-02-01 2019-02-01 Orders Doctor ISABEL [id number] 22 00:00:00 00:00:00 Only Unassigned, DON [id number] [place] [facility] [id number] Results This patient has no known results.
[2020-03-03 18:17] LABS: Absolute Lymphocytes (CBC) 0.6 K/uL (0.7-4.9); Basophils % 0.7 % (0-1.3); Hematocrit 30.8 % (39.6-49.0); MPV 8.5 fL (7.6-11.3); RBC Red Blood Cell Count 3.55 M/uL (4.33-5.43)
[2020-03-03 18:18] LABS: Protime INR 1.03
--- NOTE | 2020-03-03 18:20 | RAD REPORT ---
EXAM DESCRIPTION: Clarisse Single View03/03/2020 6:09 pm CLINICAL HISTORY: Shortness of breath COMPARISON: January 1001 FINDINGS: The lungs appear clear of acute infiltrate. The heart is mildly enlarged IMPRESSION: No acute abnormalities displayed
[2020-03-03 18:38] LABS: ALT/SGPT 18 U/L (12-78); AST/SGOT 17 U/L (15-37); Albumin 3.3 g/dL (3.4-5.0); Alkaline Phosphatase 117 U/L (45-117); BUN Blood Urea Nitrogen 70 mg/dL (7-18); Bicarbonate 22 mmol/L (21-32); Bilirubin Direct < 0.1 mg/dL (0-0.2); Bilirubin Total 0.2 mg/dL (0.2-1.0); Glucose Level 104 mg/dL (74-106); Magnesium 2.1 mg/dL (1.8-2.4); NT PRO-BNP 1573 pg/mL (<450); Potassium 5.5 mmol/L (3.5-5.1); Protein, Total 7.5 g/dL (6.4-8.2); Sodium Level 139 mmol/L (136-145); Troponin (Emerg Dept Use Only) < 0.02 ng/mL (0.0-0.045)
--- NOTE | 2020-03-03 19:21 | ER ---
Nurse's Notes [facility] Name: Garth Lane Age: 74 yrs Sex: Male : 1945 Arrival Date: 03/03/2020 Time: 16:34 Bed 20 Private MD: Diagnosis: Hyperkalemia;Chronic Mild Renal Failure Presentation: 03/03 16:40 Chief complaint: Patient states: Sent in by Dr. Gupta last Tuesday. Was called ll1 today and told to come to ER. States he got a blood transfusion last visit, believes he needs another. No lab results with patient. Coronavirus screen: Client denies travel out of the [place] in the last 14 days. At this time, the client does not indicate any symptoms associated with coronavirus-19. The client reports previous COVID testing was negative. Ebola Screen: Patient denies travel to an Ebola-affected area in the 21 days before illness onset. Initial Sepsis Screen: Does the patient meet any 2 criteria? HR > 90 bpm. Risk Assessment: Do you want to hurt yourself or someone else? Patient reports no desire to harm self or others. Onset of symptoms was March 03, 2020. 16:40 Method Of Arrival: Ambulatory ll1 16:40 Acuity: MARIO 3 ll1 19:30 Initial Sepsis Screen: Does the patient have a suspected source of infection? No. wh Patient's initial sepsis screen is negative. Historical: - Allergies: 16:43 No Known Allergies; ll1 - PMHx: 16:43 Prostate Cancer; remission now; punctured lung, fx hip, fx ribs, skull fx after fall ll1 2011.; GERD; Hypertension; - PSHx: 16:43 prostate radiation, prostate sx-green light; Cholecystectomy; r hip; ll1 - Immunization history:: Flu vaccine is up to date. - Social history:: Smoking status: Patient denies any tobacco usage or history of. Patient/guardian denies using alcohol, street drugs. Screenin:33 Abuse screen: Denies threats or abuse. Denies injuries from another. Nutritional jr10 screening: No deficits noted. Tuberculosis screening: No symptoms or risk factors identified. Fall Risk IV access (20 points). Assessment: 18:31 General: Appears in no apparent distress. Behavior is calm, cooperative, appropriate jr10 for age. General: pt states that his PCP sent him here after receiving blood test results that his K was high; denies any cp, renal dysfunction, no complaints at present. Pain: Denies pain. Neuro: No deficits noted. Level of Consciousness is awake, alert, obeys commands, Oriented to person, place, time, situation, Appropriate for age. Cardiovascular: No deficits noted. Denies chest pain, Rhythm is sinus rhythm. Respiratory: No deficits noted. Airway is patent Respiratory effort is even, unlabored, Respiratory pattern is regular, symmetrical, Breath sounds are clear bilaterally. Denies cough, shortness of breath. GI: No deficits noted. No signs and/or symptoms were reported involving the gastrointestinal system. Patient currently denies diarrhea, nausea, vomiting. : No deficits noted. No signs and/or symptoms were reported regarding the genitourinary system. Denies inability to void, urgency. EENT: No deficits noted. No signs and/or symptoms were reported regarding the EENT system. Derm: No deficits noted. No signs and/or symptoms reported regarding the dermatologic system. Musculoskeletal: No deficits noted. No signs and/or symptoms reported regarding the musculoskeletal system. 19:30 General: Appears in no apparent distress. Behavior is calm, cooperative, appropriate wh for age. Pain: Denies pain. Neuro: Level of Consciousness is awake, alert, obeys commands, Oriented to person, place, time, situation, Appropriate for age. Cardiovascular: Capillary refill < 3 seconds. Respiratory: Airway is patent Respiratory effort is even, unlabored, Respiratory pattern is regular, symmetrical. GI: Abdomen is flat, non-distended. : No signs and/or symptoms were reported regarding the genitourinary system. EENT: No signs and/or symptoms were reported regarding the EENT system. Derm: Skin is intact, is healthy with good turgor, Skin is pink, warm \T\ dry. normal. Musculoskeletal: Circulation, motion, and sensation intact. 20:30 Reassessment: No changes from previously documented assessment. Patient and/or family wh updated on plan of care and expected duration. Pain level reassessed. Patient is alert, oriented x 3, equal unlabored respirations, skin warm/dry/pink. Pt with DC order, awaiting Iv fluids to finish, Iv site a little bit swollen but is flushing good with good back flow, Iv fluid slowed down. 21:30 Reassessment: Patient appears in no apparent distress at this time. Patient and/or wh family updated on plan of care and expected duration. Pain level reassessed. Patient is alert, oriented x 3, equal unlabored respirations, skin warm/dry/pink. IV insertion swelling has gone down, IV insertion site still patent with ongoing Ivf. Vital Signs: 16:40 BP 145 / 63; Pulse 100; Resp 18; Temp 99.2; Pulse Ox 98% ; Pain 0/10; ll1 18:26 BP 131 / 71; Pulse 89; Resp 20; Pulse Ox 100% on R/A; Pain 0/10; jr10 20:00 BP 127 / 59; Pulse 91; Resp 18; Pulse Ox 97% on R/A; wh 21:30 BP 129 / 60; Pulse 6; Resp 29; Pulse Ox 96% on R/A; wh ED Course: 16:34 Patient arrived in ED. ds1 16:42 Triage completed. ll1 16:43 Arm band placed on. ll1 17:28 Paul Mcmullen MD is Attending Physician. kdr 18:03 Initial lab(s) drawn, by az, sent to lab. X-ray(s) taken. Inserted saline lock: 20 jp3 gauge in left forearm, using aseptic technique. Blood collected. 18:04 Placed in gown. Bed in low position. Call light in reach. Warm blanket given. Verbal jp3 reassurance given. Pulse ox on. NIBP on. 18:09 XRAY Chest (1 view) In Process Unspecified. EDMS 18:20 Genet Avery RN is Primary Nurse. jr10 18:41 EKG done, by ED staff, reviewed by Paul Mcmullen MD. jp3 19:15 Report given to Jorge Batres. jr10 19:19 Jaqueline Diza MD is Referral Physician. kdr 22:02 No provider procedures requiring assistance completed. IV discontinued, intact, wh bleeding controlled, No redness/swelling at site. Administered Medications: 19:58 Drug: D50W 35 ml Route: IVP; Site: left forearm; 22:06 Follow up: Response: No adverse reaction 19:59 Drug: NS 0.9% 500 ml Route: IV; Rate: bolus; Site: left forearm; 22:06 Follow up: Response: No adverse reaction; IV Status: Completed infusion 19:59 Drug: Albuterol - atroVENT (3:1) (2.5 mg - 0.5 mg) 3 ml Route: Nebulizer; 22:06 Follow up: Response: No adverse reaction 20:04 Drug: Insulin Regular Human 7 units {Co-Signature: vc (Ayse Ramos RN).} Route: IVP; Site: left forearm; 22:06 Follow up: Response: No adverse reaction Outcome: 19:20 Discharge ordered by . linda 22:03 Discharged to home ambulatory. 22:03 Condition: stable 22:03 Discharge instructions given to patient, Instructed on discharge instructions, follow up and referral plans. POC Demonstrated understanding of instructions, follow-up care, POC 22:08 Patient left the ED. Signatures: Dispatcher [employer] EDMS Paul Mcmullen MD MD kdr Sanford, Fatoumata ds1 Medardo Salcido Javier Crisostomo jp3 Ros Beal RN RN ll1 Genet Avery RN RN jr10 Ayse Ramos RN, vc
--- NOTE | 2020-03-03 19:21 | EDPHYS ---
Physician Documentation [facility] Name: Garth Lane Age: 74 yrs Sex: Male : 1945 Arrival Date: 03/03/2020 Time: 16:34 Bed 20 Private MD: ED Physician Paul Mcmullen HPI: 03/03 18:00 This 74 yrs old Male presents to ER via Ambulatory with complaints of Sent by kdr Dr. Diaz, High K and High Glucose. 18:00 The patient had blood drawn on Tuesday and had results called to him indicating that kdr his potassium was elevated. He has no c/o or other concern.. Historical: - Allergies: 16:43 No Known Allergies; ll1 - PMHx: 16:43 Prostate Cancer; remission now; punctured lung, fx hip, fx ribs, skull fx after fall ll1 2011.; GERD; Hypertension; - PSHx: 16:43 prostate radiation, prostate sx-green light; Cholecystectomy; r hip; ll1 - Immunization history:: Flu vaccine is up to date. - Social history:: Smoking status: Patient denies any tobacco usage or history of. Patient/guardian denies using alcohol, street drugs. ROS: 18:00 Constitutional: Negative for fever, chills, and weight loss, Eyes: Negative for injury, kdr pain, redness, and discharge, ENT: Negative for injury, pain, and discharge, Neck: Negative for injury, pain, and swelling, Cardiovascular: Negative for chest pain, palpitations, and edema, Respiratory: Negative for shortness of breath, cough, wheezing, and pleuritic chest pain, Abdomen/GI: Negative for abdominal pain, nausea, vomiting, diarrhea, and constipation, Back: Negative for injury and pain, : Negative for injury, bleeding, discharge, and swelling, MS/Extremity: Negative for injury and deformity, Skin: Negative for injury, rash, and discoloration, Neuro: Negative for headache, weakness, numbness, tingling, and seizure activity. Psych: Negative for depression, anxiety, suicide ideation, homicidal ideation, and hallucinations, Allergy/Immunology: Negative for hives, rash, and allergies, Endocrine: Negative for neck swelling, polydipsia, polyuria, polyphagia, and marked weight changes, Hematologic/Lymphatic: Negative for swollen nodes, abnormal bleeding, and unusual bruising. Exam: 18:00 Constitutional: This is a well developed, well nourished patient who is awake, alert, kdr and in no acute distress. Head/Face: Normocephalic, atraumatic. Eyes: Pupils equal round and reactive to light, extra-ocular motions intact. Lids and lashes normal. Conjunctiva and sclera are non-icteric and not injected. Cornea within normal limits. Periorbital areas with no swelling, redness, or edema. Neck: Trachea midline, no thyromegaly or masses palpated, and no cervical lymphadenopathy. Supple, full range of motion without nuchal rigidity, or vertebral point tenderness. No Meningismus. Chest/axilla: Normal chest wall appearance and motion. Nontender with no deformity. No lesions are appreciated. Cardiovascular: Regular rate and rhythm with a normal S1 and S2. No gallops, murmurs, or rubs. Normal PMI, no JVD. No pulse deficits. Respiratory: Lungs have equal breath sounds bilaterally, clear to auscultation and percussion. No rales, rhonchi or wheezes noted. No increased work of breathing, no retractions or nasal flaring. Abdomen/GI: Soft, non-tender, with normal bowel sounds. No distension or tympany. No guarding or rebound. No evidence of tenderness throughout. Back: No spinal tenderness. No costovertebral tenderness. Full range of motion. Skin: Warm, dry with normal turgor. Normal color with no rashes, no lesions, and no evidence of cellulitis. MS/ Extremity: Pulses equal, no cyanosis. Neurovascular intact. Full, normal range of motion. Neuro: Awake and alert, GCS 15, oriented to person, place, time, and situation. Cranial nerves II-XII grossly intact. Motor strength 5/5 in all extremities. Sensory grossly intact. Cerebellar exam normal. Normal gait. Psych: Awake, alert, with orientation to person, place and time. Behavior, mood, and affect are within normal limits. 18:41 ECG was reviewed by the Attending Physician. kdr Vital Signs: 16:40 BP 145 / 63; Pulse 100; Resp 18; Temp 99.2; Pulse Ox 98% ; Pain 0/10; ll1 18:26 BP 131 / 71; Pulse 89; Resp 20; Pulse Ox 100% on R/A; Pain 0/10; jr10 20:00 BP 127 / 59; Pulse 91; Resp 18; Pulse Ox 97% on R/A; wh 21:30 BP 129 / 60; Pulse 6; Resp 29; Pulse Ox 96% on R/A; wh MDM: 18:00 Data reviewed: vital signs, nurses notes, lab test result(s). Counseling: I had a kdr detailed discussion with the patient and/or guardian regarding: the historical points, exam findings, and any diagnostic results supporting the discharge/admit diagnosis, lab results. 19:17 Physician consultation: Jaqueline Diaz MD would like medications started, See [facility] hyperkalemia orders entered. ED course: The patient was stable and without apparent effect from elevated potassium. 19:20 Patient medically screened. [facility] 03/03 17:42 Order name: Basic Metabolic Panel; Complete Time: 19:05 [facility] 03/03 17:42 Order name: CBC with Diff; Complete Time: 18:40 [facility] 03/03 17:42 Order name: LFT's; Complete Time: 19:05 [facility] 03/03 17:42 Order name: Magnesium; Complete Time: 19:05 [facility] 03/03 17:42 Order name: NT PRO-BNP; Complete Time: 19:05 [facility] 03/03 17:42 Order name: PT-INR; Complete Time: 18:40 [facility] 03/03 17:42 Order name: Troponin (emerg Dept Use Only); Complete Time: 19:05 [facility] 03/03 17:42 Order name: XRAY Chest (1 view); Complete Time: 18:40 [facility] 03/03 17:42 Order name: EKG; Complete Time: 17:43 [facility] 03/03 17:42 Order name: Cardiac monitoring; Complete Time: 18:27 [facility] 03/03 17:42 Order name: EKG - Nurse/Tech; Complete Time: 18:33 [facility] 03/03 17:42 Order name: IV Saline Lock; Complete Time: 18:04 [facility] 03/03 17:42 Order name: Labs collected and sent; Complete Time: 18:04 [facility] 03/03 17:42 Order name: O2 Per Protocol; Complete Time: 18:04 [facility] 03/03 17:42 Order name: O2 Sat Monitoring; Complete Time: 18:04 [facility] EC:41 Rate is 83 beats/min. Rhythm is regular, Sinus arrythmia with PACs, Right bundle branch kdr block. QRS [place] is Normal. [place] interval is normal. QRS interval is normal. QT interval is normal. Clinical impression: NSR w/ Non-specific ST/T Changes. Administered Medications: 19:58 Drug: D50W 35 ml Route: IVP; Site: left forearm; 22:06 Follow up: Response: No adverse reaction 19:59 Drug: NS 0.9% 500 ml Route: IV; Rate: bolus; Site: left forearm; 22:06 Follow up: Response: No adverse reaction; IV Status: Completed infusion 19:59 Drug: Albuterol - atroVENT (3:1) (2.5 mg - 0.5 mg) 3 ml Route: Nebulizer; 22: Follow up: Response: No adverse reaction 20:04 Drug: Insulin Regular Human 7 units {Co-Signature: vc (Ayse Ramos RN).} Route: IVP; Site: left forearm; 22:06 Follow up: Response: No adverse reaction Disposition: 03/03/20 19:20 Discharged to Home. Impression: Hyperkalemia, Chronic Mild Renal Failure. - Condition is Stable. - Discharge Instructions: Hyperkalemia, [id number]. - Medication Reconciliation Form, Thank You Letter form. - Follow up: Jaqueline Diaz MD; When: 2 - 3 days; Reason: If symptoms return, Further diagnostic work-up, Recheck today's complaints, Continuance of care, Re-evaluation by your physician. - Problem is new. - Symptoms have improved. Signatures: Dispatcher [employer] [facility] Paul Mcmullen MD MD kdr [place], Winsy Ros Beal RN RN ll1 Ayse Ramos RN, vc Corrections: (The following items were deleted from the chart) : 19:20 03/03/2020 19:20 Discharged to Home. Impression: Hyperkalemia; Chronic Mild Renal wh Failure. Condition is Stable. Forms are Medication Reconciliation Form, Thank You Letter, Antibiotic Education, Prescription Opioid Use. Follow up: Jaqueline Diaz; When: 2 - 3 days; Reason: If symptoms return, Further diagnostic work-up, Recheck today's complaints, Continuance of care, Re-evaluation by your physician. Problem is new. Symptoms have improved. kdr
[2020-03-03] MEDS ORDERED: INSULIN -REGULAR HUMAN 50 UNIT/0.5 ML ML ONE (19:51)
[2020-03-03] MEDS ORDERED: NA CHLORIDE 0.9% 500 ML ONE (19:52)
[2020-03-03] MEDS ORDERED: D50W 25 GM/50 ML SYRINGE/VIAL IV ONE (19:52)
[2020-03-03] MEDS ORDERED: ALBUTEROL 2.5 MG/3 ML NEB SOL ONE (19:52)
[2020-03-03] MEDS ORDERED: IPRATROPIUM BROM 0.5MG/2.5ML ONE (19:52)
--- NOTE | 2020-03-04 10:44 | EKG ---
Test Date: 2020-03-03 Test Time: 18:39:30 Lining Baster: COURTNEY MEASUREMENT RESULTS: Intervals: Rate: 83 [place]: 110 QRSD: 126 QT: 386 QTc: 453 [place]: P: -23 NY: 110 QRS: 70 T: 52 INTERPRETIVE STATEMENTS: Sinus rhythm with short [place] with premature atrial complexes Right bundle branch block Abnormal ECG Compared to ECG 01/15/2020 12:46:17 Atrial premature complex(es) now present Short [place] interval now present Electronically Signed On 03-04-20 10:43:23 CDT by Dustin López
== END 2020-03-03 22:08 | disposition home or self-care (01) ==
LOC: ER 16:30
DX: I12.9 Hypertensive chronic kidney disease with stage 1 through stage 4 chronic kidney disease, or unspecified chronic kidney disease (principal); N18.9 Chronic kidney disease, unspecified; Z85.46 Personal history of malignant neoplasm of prostate
CPT/HCPCS: 93005; 85025; 80048; 36415; 83735; 85610; 80076; 84484; 83880; 71045; J7040; 96361; 96374; 96375; 99285

== ENCOUNTER 2020-04-03 11:27 | Emergency (ER) | payer OTHER ==
--- OUTSIDE RECORDS SUMMARY | 2020-04-03 11:29 | XMS REPORT | Clinical Summary ---
:1945 Author Organization [facility] Address [address] [place] [address] Care Team Providers Name Role Phone Asked, No Pcp Primary Care Provider Unavailable Allergies No Known Active Allergies Medications Medication Sig Dispensed Refills Start [...] Assigned at Date Recorded Not on file Last Filed Vital Signs Not on file Plan of Treatment Health Maintenance Due Date Last Done Comments COLONOSCOPY SCREENING 1994 SHINGLES VACCINES (#1) 1994 65+ PNEUMOCOCCAL VACCINE (1 of 1 - PPSV23) 2009 INFLUENZA VACCINE 03/11/2020 Results Not on fileafter 04/03/2019 Advance Directives For more information, please contact: [phone] Type Date Recorded Patient 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
--- OUTSIDE RECORDS SUMMARY | 2020-04-03 11:29 | XMS REPORT | Continuity of Care Document ---
:1945 Author Organization [facility] t Address [address] [place] [address] [address] [place] [address] Care Team Providers Name Role Phone Asked, No Pcp Primary Care Physician Unavailable Doctor Unassigned, Name Attending Clinician Unavailable Problems Condition Condition Condition Status Onset Resolution Last Treating Co mments Source Name Details Category Date Date Treatment Clinician Date Slurred Slurred Disease Active [place] speech speech 7-08 [facility] 00:00: st 00 SCAR (acute SCAR (acute Disease [facility] kidney 4-28 [facility] injury) injury) 00:00: st 00 Acute Acute Disease Active [place] renal renal 1-07 [facility] failure failure 00:00: st (ARF) (ARF) 00 Renal Renal Disease Active [place] failure failure 9-11 Methodi 00:00: st 00 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[place] (rapidly (rapidly 7-02 Method i progressiv progressiv 00:00: st e e 00 glomerulon glomerulon ephritis) ephritis) Rapidly Rapidly Disease Active [place] progressiv progressiv 5-17 Me thodi e e 00:00: st glomerulon glomerulon 00 ephritis ephritis Normocytic Normocytic Disease Active [place] anemia anemia 5-17 Method[facility] 00:00: st 00 Other Other Disease Active [place] proteinuri proteinuri 5-17 Me thodi a a 00:00: st 00 Essential Essential Disease Active Sarah ston hypertensi hypertensi 5-17 Me thodi on on 00:00: st 00 Acute Acute Disease Active [place] renal renal 5-12 [facility] failure failure 00:00: st 00 Allergies, Adverse Reactions, Alerts This patient has no known allergies or adverse reactions. Family History Family Member Diagnosis Comments Start Date Stop Date Source Maternal Diabetes type II Dia grandmother Gnosticism Natural sister Alzheimer's disease [place] Gnosticism Natural sister Diabetes type II [place]yn [place] Gnosticism Natural sister Hypertension [facility] Social History Social Habit Start Date Stop Date Quantity Comments Source Sex Assigned At [facility] ethodi Cigarettes smoked 2018-01-09 2018-01-09 [facility] per 00:00:00 00:00:00 day) - Reported Cigarette 2018-01-09 2018-01-09 [place] Caleb ist pack-years 00:00:00 00:00:00 Tobacco use and 2018-01-09 2018-01-09 Never used [facility] ethodist exposure 00:00:00 00:00:00 Alcohol intake 2018-01-09 2018-01-09 Current drinker [place] on Gnosticism 00:00:00 00:00:00 of alcohol (finding) Alcohol Comment 2017-11-19 2017-11-19 per week [facility] ethodist 00:00:00 00:00:00 History of tobacco 1969-11-19 1979-07-22 Current smoker Ho gustavo Gnostic[facility] use 00:00:00 00:00:00 Smoking Status Start Date Stop Date Source Former smoker 2018-01-09 00:00:00 2018-01-09 00:00:00 [facility] Ordered Filled Start Stop Current Ordering Indication Dosage Frequency Signature Comments Components Source Medication Medication Date Date Medication? Clinician (SIG) Name Name tamsulosin 2019 Yes .4mg QD Take 0.4 Sarah ston (FLOMAX) 7-10 mg by Method[facility] 0.4 mg 17:11: mouth st capsule,ext 13 daily. ended release 24hr pantoprazol Yes 40mg QD Take 40 mg Dia e 7-10 by mouth Methodi (PROTONIX) 17:11: daily. st 40 MG EC 13 tablet vit B 2018- Yes 1{tbl} QD Take 1 Dia complex-vit 7-10 tablet by Met tl real 17:11: mouth st C-folic 13 daily. acid (NEPHRO-VIT E OTC) 0.8 mg tablet sulfamethox Yes 1{tbl} Q2D Take 1 Ho gustavo azole-trime 7-10 tablet by Met hodi thoprim [...] Planned Date Details Comments Source Future Scheduled 2020-03-11 INFLUENZA VACCINE Domo mitchell [facility] Test 00:00:00 [code = INFLUENZA VACCINE] Future Scheduled 2009 65+ PNEUMOCOCCAL Dia [facility] Test 00:00:00 VACCINE (1 of 1 - PPSV23) [code = 65+ PNEUMOCOCCAL VACCINE (1 of 1 - PPSV23)] Future Scheduled 1994 COLONOSCOPY SCREENING gustavo [facility] Test 00:00:00 [code = COLONOSCOPY SCREENING] Future Scheduled 1994 SHINGLES VACCINES (#1) H [facility] Gn[facility] Test 00:00:00 [code = SHINGLES VACCINES (#1)] Encounters Start End Encounter Admission Attending Care Care Encounter Source Date/Time Date/Time Type Type Clinicians Facility Department ID 2019-02-01 2019-02-01 Orders Doctor HALL [id number] 22 00:00:00 00:00:00 Only Unassigned, DON [id number] [facility] [id number] Results This patient has no known results.
[2020-04-03 13:26] LABS: Absolute Lymphocytes (CBC) 0.5 K/uL (0.7-4.9); Hematocrit 31.1 % (39.6-49.0); Lymphocytes % 11.1 % (15.3-44.8); MPV 8.5 fL (7.6-11.3); RBC Red Blood Cell Count 3.57 M/uL (4.33-5.43)
[2020-04-03 13:37] LABS: Urine Blood TRACE (NEG); Urine Glucose NEGATIVE (NEG); Urine Protein 2+ (NEG); Urine Specific Gravity 1.015 (1.005-1.030); Urine pH 5.5 (5.0-7.0)
[2020-04-03 13:47] LABS: ALT/SGPT 14 U/L (12-78); AST/SGOT 10 U/L (15-37); Albumin 3.3 g/dL (3.4-5.0); Alkaline Phosphatase 101 U/L (45-117); BUN Blood Urea Nitrogen 80 mg/dL (7-18); Bicarbonate 21 mmol/L (21-32); Bilirubin Direct < 0.1 mg/dL (0-0.2); Bilirubin Total 0.2 mg/dL (0.2-1.0); Glucose Level 114 mg/dL (74-106); Lipase 215 U/L (73-393); NT PRO-BNP 3908 pg/mL (<450); Potassium 4.3 mmol/L (3.5-5.1); Protein, Total 7.9 g/dL (6.4-8.2); Sodium Level 141 mmol/L (136-145)
[2020-04-03 13:47] LABS: Urine Bacteria NONE SEEN /HPF (NONE SEEN); Urine Culture Reflex Order NOT NEEDED; Urine RBC NONE SEEN /HPF (NONE SEEN)
--- NOTE | 2020-04-03 14:21 | RAD REPORT ---
EXAM DESCRIPTION: Clarisse Single View04/03/2020 1:29 pm CLINICAL HISTORY: Cough COMPARISON: February 2020 FINDINGS: The lungs appear clear of acute infiltrate. The heart is mildly to moderately enlarged IMPRESSION: No acute abnormalities displayed
[2020-04-03] MEDS ORDERED: NA CHLORIDE 0.9% 500 ML ONE (14:45)
--- NOTE | 2020-04-03 15:16 | EDPHYS ---
Physician Documentation [facility] Name: Garth Lane Age: 74 yrs Sex: Male : 1945 Arrival Date: 04/03/2020 Time: 11:28 Bed 14 Private MD: Ousmane Mccullough R ED Physician Charanjit Dee HPI: 04/03 14:21 This 74 yrs old Male presents to ER via Ambulatory with complaints of rn Nausea/Vomiting/Diarrhea. 14:21 The patient presents to the emergency department with nausea, vomiting, diarrhea. rn Onset: The symptoms/episode began/occurred 1 week(s) ago. Possible causes: unknown. The symptoms are aggravated by nothing. The symptoms are alleviated by nothing. Severity of symptoms: At their worst the symptoms were mild in the emergency department the symptoms are unchanged. The patient has experienced similar episodes in the past. The patient has not recently seen a physician. Reports nausea/vomiting/diarrhea, generalized fatigue, for 1 week, similar episodes in past when diagnosed with recurrent renal failure. NOt on dialysis. Had bloodwork done this week but no results. Does not feel feverish or ill. Just doesn't feel well. No chest pain or difficulty breathing. . Historical: - Allergies: 12:06 No Known Allergies; ss - PMHx: 12:06 GERD; Hypertension; punctured lung, fx hip, fx ribs, skull fx after fall 2011.; ss Prostate Cancer; remission now; - PSHx: 12:06 prostate radiation, prostate sx-green light; Cholecystectomy; r hip; ss - Immunization history:: Adult Immunizations up to date. - Social history:: Smoking status: Patient denies any tobacco usage or history of. - Family history:: not pertinent. - Hospitalizations: : No recent hospitalization is reported. ROS: 14:21 Constitutional: Negative for fever, chills, and weight loss, Eyes: Negative for injury, rn pain, redness, and discharge, Cardiovascular: Negative for chest pain, palpitations, and edema, Respiratory: Negative for shortness of breath, cough, wheezing, and pleuritic chest pain, Abdomen/GI: Negative for abdominal pain, and constipation, Back: Negative for injury and pain, : Negative for injury, bleeding, discharge, and swelling, MS/Extremity: Negative for injury and deformity, Skin: Negative for injury, rash, and discoloration, Neuro: Negative for headache, numbness, tingling, and seizure. Exam: 14:21 Constitutional: This is a well developed, well nourished patient who is awake, alert, rn and in no acute distress. Head/Face: Normocephalic, atraumatic. Cardiovascular: Bradycardic, regular Respiratory: No increased work of breathing, no retractions or nasal flaring. Abdomen/GI: soft, non-tender Skin: Warm, dry with normal turgor. Normal color with no rashes, no lesions, and no evidence of cellulitis. MS/ Extremity: Pulses equal, no cyanosis. Neuro: Awake and alert, GCS 15 Vital Signs: 12:04 BP 127 / 78; Pulse 52; Resp 16; Temp 98.2(TE); Pulse Ox 99% on R/A; Weight 77.11 kg; ss Height 5 ft. 2 in. (157.48 cm); 13:26 BP 106 / 65; Pulse 59; Resp 15 S; Pulse Ox 100% on R/A; ca1 14:30 BP 116 / 59; Pulse 67; Resp 16 S; Pulse Ox 100% on R/A; ca1 15:30 BP 114 / 59; Pulse 59; Resp 16 S; Pulse Ox 100% on R/A; ca1 12:04 Body Mass Index 31.09 (77.11 kg, 157.48 cm) ss MDM: 12:33 Patient medically screened. rn 15:09 Differential diagnosis: Nonspecific abd pain, gastritis, viral gastroenteritis, rn gastroenteritis. Data reviewed: vital signs, nurses notes, lab test result(s), radiologic studies, plain films, and as a result, I will discharge patient. Counseling: I had a detailed discussion with the patient and/or guardian regarding: the historical points, exam findings, and any diagnostic results supporting the discharge/admit diagnosis, lab results, radiology results, the need for outpatient follow up, to return to the emergency department if symptoms worsen or persist or if there are any questions or concerns that arise at home. Response to treatment: the patient's symptoms have mildly improved after treatment, and as a result, I will discharge patient. Special discussion: I discussed with the patient/guardian in detail that at this point there is no indication for admission to the hospital. It is understood, however, that if the symptoms persist or worsen the patient needs to return immediately for re-evaluation. ED course: + mild dehydration, + chronic renal failure, no evidence of acute infection or lung pathology, vitals stable, will dc home with hydration and pcp/renal f/u. . 04/03 12:43 Order name: Basic Metabolic Panel; Complete Time: 14:14 04/03 12:43 Order name: CBC with Diff; Complete Time: 14:14 04/03 12:43 Order name: Hepatic Function; Complete Time: 14:14 04/03 12:43 Order name: Lipase; Complete Time: 14:14 04/03 12:43 Order name: Urine Microscopic Only; Complete Time: 14:14 04/03 12:43 Order name: Procalcitonin; Complete Time: 14:14 04/03 12:43 Order name: IV Saline Lock; Complete Time: 13:44 04/03 12:43 Order name: Labs collected and sent; Complete Time: 13:44 04/03 12:43 Order name: XRAY Chest (1 view); Complete Time: 14:27 04/03 12:43 Order name: Urine Dipstick-Ancillary (obtain specimen); Complete Time: 13:27 04/03 12:44 Order name: BNP; Complete Time: 14:14 04/03 13:26 Order name: Glucose, Ancillary Testing; Complete Time: 14:14 EDNE 04/03 13:28 Order name: Urine Dipstick--Ancillary (enter results); Complete Time: 14:14 em1 04/03 12:43 Order name: Glucose Level; Complete Time: 13:44 rn Administered Medications: 14:35 Drug: NS 0.9% 500 ml Route: IV; Rate: bolus; Site: left forearm; ca1 15:00 Follow up: Response: No adverse reaction; IV Status: Completed infusion; IV Intake: ca1 500ml Disposition: 04/03/20 15:15 Discharged to Home. Impression: Dehydration, Chronic kidney disease, unspecified. - Condition is Stable. - Discharge Instructions: Dehydration, Adult. - Medication Reconciliation Form, Thank You Letter, Antibiotic Education, Prescription Opioid Use form. - Follow up: Private Physician; When: As needed; Reason: Recheck today's complaints, Re-evaluation by your physician. - Problem is an ongoing problem. - Symptoms have improved. Signatures: Dispatcher [employer] Charanjit Yuan MD MD rn Smirch, Shelby, RN RN ss Rosanna Chowdary RN RN ca1 Corrections: (The following items were deleted from the chart) 15:47 15:15 04/03/2020 15:15 Discharged to Home. Impression: Dehydration; Chronic kidney ca1 disease, unspecified. Condition is Stable. Forms are Medication Reconciliation Form, Thank You Letter, Antibiotic Education, Prescription Opioid Use. Follow up: Private Physician; When: As needed; Reason: Recheck today's complaints, Re-evaluation by your physician. Problem is an ongoing problem. Symptoms have improved. rn
--- NOTE | 2020-04-03 15:16 | ER ---
Nurse's Notes [facility] Name: Garth Lane Age: 74 yrs Sex: Male : 1945 Arrival Date: 04/03/2020 Time: 11:28 Bed 14 Private MD: Ousmane Mccullough R Diagnosis: Dehydration;Chronic kidney disease, unspecified Presentation: 04/03 12:04 Chief complaint: Patient states: N/V after eating since yesterday. Dr. Gupta advised ss patient to come to ER before he becomes dehydrated and it affects his kidneys. Coronavirus screen: Client denies travel out of the [place] in the last 14 days. Ebola Screen: Patient denies exposure to infectious person. Patient denies travel to an Ebola-affected area in the 21 days before illness onset. Initial Sepsis Screen: Does the patient meet any 2 criteria? No. Patient's initial sepsis screen is negative. Does the patient have a suspected source of infection? No. Patient's initial sepsis screen is negative. Risk Assessment: Do you want to hurt yourself or someone else? Patient reports no desire to harm self or others. Onset of symptoms was April 02, 2020. 12:04 Method Of Arrival: Ambulatory ss 12:04 Acuity: MARIO 3 ss Historical: - Allergies: 12:06 No Known Allergies; ss - PMHx: 12:06 GERD; Hypertension; punctured lung, fx hip, fx ribs, skull fx after fall 2011.; ss Prostate Cancer; remission now; - PSHx: 12:06 prostate radiation, prostate sx-green light; Cholecystectomy; r hip; ss - Immunization history:: Adult Immunizations up to date. - Social history:: Smoking status: Patient denies any tobacco usage or history of. - Family history:: not pertinent. - Hospitalizations: : No recent hospitalization is reported. Screenin:35 Abuse screen: Denies threats or abuse. Denies injuries from another. Nutritional ca1 screening: No deficits noted. Tuberculosis screening: No symptoms or risk factors identified. Fall Risk IV access (20 points). Assessment: 12:35 General: Appears in no apparent distress. comfortable, Behavior is calm, cooperative, ca1 appropriate for age, Reports not feeling well for last few days. Pain: Denies pain. Neuro: Level of Consciousness is awake, alert, obeys commands, Oriented to person, place, time, situation, Appropriate for age. Cardiovascular: Heart tones S1 S2 present Capillary refill < 3 seconds Patient's skin is warm and dry. Respiratory: Airway is patent Respiratory effort is even, unlabored, Respiratory pattern is regular, symmetrical, Breath sounds are clear bilaterally. GI: Abdomen is round non-distended, Bowel sounds present X 4 quads. Abd is soft and non tender X 4 quads. Reports nausea, vomiting, yesterday but not today. : No signs and/or symptoms were reported regarding the genitourinary system. EENT: No signs and/or symptoms were reported regarding the EENT system. Derm: Skin is intact, is healthy with good turgor, Skin is pink, warm \T\ dry. Musculoskeletal: Circulation, motion, and sensation intact. Capillary refill < 3 seconds. 13:26 Reassessment: Patient appears in no apparent distress at this time. Patient and/or ca1 family updated on plan of care and expected duration. Pain level reassessed. Patient is alert, oriented x 3, equal unlabored respirations, skin warm/dry/pink. 14:30 Reassessment: Patient appears in no apparent distress at this time. Patient and/or ca1 family updated on plan of care and expected duration. Pain level reassessed. Patient is alert, oriented x 3, equal unlabored respirations, skin warm/dry/pink. 15:43 Reassessment: Patient appears in no apparent distress at this time. Patient and/or ca1 family updated on plan of care and expected duration. Pain level reassessed. Patient is alert, oriented x 3, equal unlabored respirations, skin warm/dry/pink. Vital Signs: 12:04 BP 127 / 78; Pulse 52; Resp 16; Temp 98.2(TE); Pulse Ox 99% on R/A; Weight 77.11 kg; ss Height 5 ft. 2 in. (157.48 cm); 13:26 BP 106 / 65; Pulse 59; Resp 15 S; Pulse Ox 100% on R/A; ca1 14:30 BP 116 / 59; Pulse 67; Resp 16 S; Pulse Ox 100% on R/A; ca1 15:30 BP 114 / 59; Pulse 59; Resp 16 S; Pulse Ox 100% on R/A; ca1 12:04 Body Mass Index 31.09 (77.11 kg, 157.48 cm) ED Course: 11:28 Patient arrived in ED. ag5 11:28 Ousmane Mccullough MD is Private Physician. ag5 12:06 Triage completed. ss 12:06 Arm band placed on right wrist. ss 12:33 Charanjit Dee MD is Attending Physician. rn 12:35 Patient has correct armband on for positive identification. Placed in gown. Bed in low ca1 position. Call light in reach. Side rails up X2. Pulse ox on. NIBP on. Warm blanket given. 12:55 Rosanna Chowdary, RN is Primary Nurse. ca1 13:20 No provider procedures requiring assistance completed. Initial lab(s) drawn, by pr, ca1 sent to lab. Inserted saline lock: 20 gauge in left forearm, using aseptic technique. Blood collected. 13:30 XRAY Chest (1 view) In Process Unspecified. EDMS 15:45 IV discontinued, intact, bleeding controlled, No redness/swelling at site. Pressure ca1 dressing applied. Administered Medications: 14:35 Drug: NS 0.9% 500 ml Route: IV; Rate: bolus; Site: left forearm; ca1 15:00 Follow up: Response: No adverse reaction; IV Status: Completed infusion; IV Intake: ca1 500ml Intake: 15:00 IV: 500ml; Total: 500ml. ca1 Outcome: 15:15 Discharge ordered by . rn 15:45 Discharged to home ambulatory, with family. ca1 15:45 Condition: stable 15:45 Discharge instructions given to patient, Instructed on discharge instructions, follow up and referral plans. Demonstrated understanding of instructions, follow-up care. 15:47 Patient left the ED. ca1 Signatures: Dispatcher [employer] EDMS Charanjit Dee MD MD rn Smirch, Shelby, RN RN Rosanna Chowdary RN RN ca1 Tereso Keen ag5
[2020-04-03 15:53] VITALS: TEMP 98.2
[2020-04-03 15:55] VITALS: O2SAT 100
[2020-04-03 15:57] VITALS: BP 114/59
== END 2020-04-03 15:47 | disposition home or self-care (01) ==
LOC: ER 11:27
DX: E86.0 Dehydration (principal); I12.9 Hypertensive chronic kidney disease with stage 1 through stage 4 chronic kidney disease, or unspecified chronic kidney disease; N18.9 Chronic kidney disease, unspecified; Z85.46 Personal history of malignant neoplasm of prostate
CPT/HCPCS: 85025; 80048; 36415; 82947; 80076; 83690; 84145; 83880; 71045; 99284; J7040; 81003; 81015

== ENCOUNTER 2020-05-05 11:37 | Emergency (ER) | payer OTHER ==
--- OUTSIDE RECORDS SUMMARY | 2020-05-05 12:11 | XMS REPORT | Clinical Summary ---
:1945 Author Organization [facility] Address [address] [place] [address] Care Team Providers Name Role Phone Asked, [...] Essential hypertension 11/24/2017 Acute renal failure 11/19/2017 Surgical History Surgery Date Site/Laterality Comments CHOLECYSTECTOMY HIP SURGERY ABDOMINAL SURGERY Medical History Medical History Date Comments History of prostate cancer 2015 Renal insufficiency Hypertension Anemia Family History Medical History Relation Name Comments [...] of 1 - PPSV23) 2009 INFLUENZA VACCINE 02/09/2020 Results Not on fileafter 05/05/2019 Advance Directives For more information, please contact: [phone] Type Date Recorded 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
--- OUTSIDE RECORDS SUMMARY | 2020-05-05 12:12 | XMS REPORT | Continuity of Care Document ---
:1945 Author Organization [facility] t Address [address] [place] [address] [address] [place] [address] Care Team Providers Name Role Phone Asked, No Pcp Primary Care Physician Unavailable Doctor Unassigned, Name Attending Clinician Unavailable Problems Condition Condition Condition Status Onset Resolution Last Treating Co mments Source Name Details Category Date Date Treatment Clinician Date Slurred Slurred Disease Active [place] speech speech 7-08 Methodi 00:00: st 00 SCAR (acute SCAR (acute Disease [facility] kidney kidney 4-28 Methodi injury) injury) 00:00: st 00 Acute Acute Disease Active [place] renal renal 1-07 [facility] failure failure 00:00: st (ARF) (ARF) 00 Renal Renal Disease Active [place] failure failure 9-11 Methodi 00:00: st 00 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[place] (rapidly (rapidly 7-02 Method i progressiv progressiv 00:00: st e e 00 glomerulon glomerulon ephritis) ephritis) Rapidly Rapidly Disease Active [place] progressiv progressiv 5-17 Me thodi e e 00:00: st glomerulon glomerulon 00 ephritis ephritis Normocytic Normocytic Disease Active [place] anemia anemia 5-17 Methodi 00:00: st 00 Other Other Disease Active [place] proteinuri proteinuri 5-17 Me thodi a a 00:00: st 00 Essential Essential Disease Active Sarah ston hypertensi hypertensi 5-17 Me thodi on on 00:00: st 00 Acute Acute Disease Active [place] renal renal 5-12 Methodi failure failure 00:00: st 00 Allergies, Adverse Reactions, Alerts This patient has no known allergies or adverse reactions. Family History Family Member Diagnosis Comments Start Date Stop Date Source Maternal Diabetes type II Dia grandmother Buddhist Natural sister Alzheimer's disease [place] Buddhist Natural sister Diabetes type II Kailyn [place] Buddhist Natural sister Hypertension [facility] Social History Social Habit Start Date Stop Date Quantity Comments Source Sex Assigned At [facility] ethodi Cigarettes smoked 2018-01-09 2018-01-09 [facility] current (pack per 00:00:00 00:00:00 day) - Reported Cigarette 2018-01-09 2018-01-09 [place] Caleb ist pack-years 00:00:00 00:00:00 Tobacco use and 2018-01-09 2018-01-09 Never used [facility] ethodist exposure 00:00:00 00:00:00 Alcohol intake 2018-01-09 2018-01-09 Current drinker Yahir on Buddhist 00:00:00 00:00:00 of alcohol (finding) Alcohol Comment 2017-11-19 2017-11-19 per week [facility] ethodist 00:00:00 00:00:00 History of tobacco 1969-11-19 1979-07-22 Current smoker Ho gustavo Buddhist use 00:00:00 00:00:00 Smoking Status Start Date Stop Date Source Former smoker 2018-01-09 00:00:00 2018-01-09 00:00:00 [facility] Medications Ordered Filled Start Stop Current Ordering [...] Comments Source Future Scheduled 2020-02-09 INFLUENZA VACCINE Domo [facility]chell [facility] Test 00:00:00 [code = INFLUENZA VACCINE] Future Scheduled 2009 65+ PNEUMOCOCCAL Dia Buddhist Test 00:00:00 VACCINE (1 of 1 - PPSV23) [code = 65+ PNEUMOCOCCAL VACCINE (1 of 1 - PPSV23)] Future Scheduled 1994 COLONOSCOPY SCREENING gustavo Buddhist Test 00:00:00 [code = COLONOSCOPY SCREENING] Future Scheduled 1994 SHINGLES VACCINES (#1) [facility] Buddhist Test 00:00:00 [code = SHINGLES VACCINES (#1)] Encounters Start End Encounter Admission Attending Care Care Encounter Source Date/Time Date/Time Type Type Clinicians Facility Department ID 2019-02-01 2019-02-01 Orders Doctor HALL [id number] 22 00:00:00 00:00:00 Only Unassigned, DON [id number] [place] [facility] [id number] Results This patient has no known results.
[2020-05-05] MEDS ORDERED: LIDOCAINE 1% MPF 5 ML VIAL ONE (13:15)
--- NOTE | 2020-05-05 14:06 | EDPHYS ---
Physician Documentation [facility] Name: Garth Lane Age: 74 yrs Sex: Male : 1945 Arrival Date: 05/05/2020 Time: 11:38 Bed 14 Private MD: MARCIA Physician Carlito Delatorre Historical: - Allergies: 05/05 12:14 No Known Allergies; ca1 - Home Meds: 12:14 allopurinol 100 mg Oral tab [Active]; aspirin 81 mg Oral TbEC 1 tab once daily ca1 [Active]; furosemide 80 mg Oral tab 1 tab once daily [Active]; lisinopril 2.5 mg Oral tab 1 tab once daily [Active]; tamsulosin 0.4 mg Oral cp24 1 cap once daily [Active]; pantoprazole 40 mg Oral TbEC 1 tab once daily [Active]; 12:14 Eliquis oral oral [Active]; ca1 - PMHx: 12:14 GERD; Hypertension; Prostate Cancer; remission now; punctured lung, fx hip, fx ribs, ca1 skull fx after fall 2011.; - PSHx: 12:14 prostate radiation, prostate sx-green light; Cholecystectomy; r hip; ca1 - Immunization history:: Adult Immunizations up to date, Last tetanus immunization: up to date 3 years ago. Pneumococcal vaccine is up to date, Flu vaccine is not up to date. - Social history:: Smoking status: Patient denies any tobacco usage or history of. Vital Signs: 12:08 BP 131 / 78; Pulse 81; Resp 16 S; Temp 97.8(TE); Pulse Ox 95% on R/A; Weight 76.2 kg ca1 (R); Height 5 ft. 2 in. (157.48 cm) (R); Pain 2/10; 12:08 Body Mass Index 30.73 (76.20 kg, 157.48 cm) ca1 Laceration: 14:06 Wound Repair of 2cm ( 0.8in ) subcutaneous laceration to dorsal aspect of distal pm1 phalanx of left thumb. Irregularly shaped.. Distal neuro/vascular/tendon intact. Anesthesia: Local anesthetic administered with 1 mls of 1% lidocaine. Wound prep: Extensive cleansing with betadine with hibiclenz by il, Wound irrigation with saline by il, Wound explored extensively, Copious irrigation. Skin closed with 5 4-0 Prolene using simple sutures and sterile technique. Dressed with Neosporin, 4x4's, finger splint. Patient tolerated well. MDM: 13:04 [facility] 14[facility]04 Data reviewed: vital signs. Data interpreted: Pulse oximetry: on room air is 95 %. pm1 Interpretation: normal. Counseling: I had a detailed discussion with the patient and/or guardian regarding: the historical points, exam findings, and any diagnostic results supporting the discharge/admit diagnosis, the need for outpatient follow up, Suture removal in 10-14 days, to return to the emergency department if symptoms worsen or persist or if there are any questions or concerns that arise at home. 05/05 13:15 Order name: Prolene, Sutures; Complete Time: 14:27 pm1 05/05 13:15 Order name: Dressing - Wound; Complete Time: 14:27 pm1 05/05 13:15 Order name: Gloves, Sterile; Complete Time: 13:20 pm1 05/05 13:15 Order name: Setup Suture Tray; Complete Time: 13:20 pm1 05/05 14:06 Order name: Splint - Finger pm1 Administered Medications: 14:00 Drug: Lidocaine (1 %) 5 ml Volume: 5 ml; Route: Infiltration; Disposition: 05/05/20 14:05 Discharged to Home. Impression: Laceration without foreign body of left thumb without damage to nail. - Condition is Stable. - Discharge Instructions: Laceration Care, Adult. - Prescriptions for Keflex 500 mg Oral Capsule - take 1 capsule by ORAL route every 12 hours for 10 days; 20 capsule. - Medication Reconciliation Form, Thank You Letter, Antibiotic Education, Prescription Opioid Use form. - Follow up: Emergency Department; When: As needed; Reason: Worsening of condition. Follow up: Private Physician; When: 10 - 14 days; Reason: Recheck today's complaints, Continuance of care, Staple/Suture removal, Re-evaluation by your physician. - Problem is new. - Symptoms have improved. Signatures: Carlito Delatorre MD MD cha Williams, Irene RN RIO iw Emiliano Orourke, PRINTING SERVICES COORDINATOR PRINTING SERVICES COORDINATOR pm1 Rosanna Chowdary RN RN ca1 Corrections: (The following items were deleted from the chart) 14:42 14:05 05/05/2020 14:05 Discharged to Home. Impression: Laceration without foreign body iw of left thumb without damage to nail. Condition is Stable. Forms are Medication Reconciliation Form, Thank You Letter, Antibiotic Education, Prescription Opioid Use. Follow up: Emergency Department; When: As needed; Reason: Worsening of condition. Follow up: Private Physician; When: 10 - 14 days; Reason: Recheck today's complaints, Continuance of care, Staple/Suture removal, Re-evaluation by your physician. Problem is new. Symptoms have improved. pm1
--- NOTE | 2020-05-05 14:06 | ER ---
Nurse's Notes [facility] Name: Garth Lane Age: 74 yrs Sex: Male : 1945 Arrival Date: 05/05/2020 Time: 11:38 Bed 14 Private MD: Diagnosis: Laceration without foreign body of left thumb without damage to nail Presentation: 05/05 12:08 Chief complaint: Patient states: Lac on L thumb by a pocket knife 1 hr [employer]. Bleeding ca1 controlled. Coronavirus screen: Client denies travel out of the [place] in the last 14 days. At this time, the client does not indicate any symptoms associated with coronavirus-19. The client reports previous COVID testing was negative. Date of collection: March 2020. Ebola Screen: Patient negative for fever greater than or equal to 101.5 degrees Fahrenheit, and additional compatible Ebola Virus Disease symptoms Patient denies exposure to infectious person. Patient denies travel to an Ebola-affected area in the 21 days before illness onset. No symptoms or risks identified at this time. Complicating Factors: There are no complicating factors for this patient. Initial Sepsis Screen: Does the patient meet any 2 criteria? No. Patient's initial sepsis screen is negative. Does the patient have a suspected source of infection? No. Patient's initial sepsis screen is negative. Risk Assessment: Do you want to hurt yourself or someone else? Patient reports no desire to harm self or others. Onset of symptoms was May 05, 2020. 12:08 Method Of Arrival: Ambulatory ca1 12:08 Acuity: MARIO 4 ca1 Historical: - Allergies: 12:14 No Known Allergies; ca1 - Home Meds: 12:14 allopurinol 100 mg Oral tab [Active]; aspirin 81 mg Oral TbEC 1 tab once daily ca1 [Active]; furosemide 80 mg Oral tab 1 tab once daily [Active]; lisinopril 2.5 mg Oral tab 1 tab once daily [Active]; tamsulosin 0.4 mg Oral cp24 1 cap once daily [Active]; pantoprazole 40 mg Oral TbEC 1 tab once daily [Active]; 12:14 Eliquis oral oral [Active]; ca1 - PMHx: 12:14 GERD; Hypertension; Prostate Cancer; remission now; punctured lung, fx hip, fx ribs, ca1 skull fx after fall 2011.; - PSHx: 12:14 prostate radiation, prostate sx-green light; Cholecystectomy; r hip; ca1 - Immunization history:: Adult Immunizations up to date, Last tetanus immunization: up to date 3 years ago. Pneumococcal vaccine is up to date, Flu vaccine is not up to date. - Social history:: Smoking status: Patient denies any tobacco usage or history of. Vital Signs: 12:08 BP 131 / 78; Pulse 81; Resp 16 S; Temp 97.8(TE); Pulse Ox 95% on R/A; Weight 76.2 kg ca1 (R); Height 5 ft. 2 in. (157.48 cm) (R); Pain 2/10; 12:08 Body Mass Index 30.73 (76.20 kg, 157.48 cm) ca1 ED Course: 11:38 Patient arrived in ED. as 12:10 Triage completed. ca1 12:14 Arm band placed on right wrist. ca1 12:58 Gloria Mccollum RN is Primary Nurse. iw 13:04 Emiliano Orourke NP is PHCP. pm1 13:04 Carlito Delatorre MD is Attending Physician. pm1 Administered Medications: 14:00 Drug: Lidocaine (1 %) 5 ml Volume: 5 ml; Route: Infiltration; iw Outcome: 14:05 Discharge ordered by . pm1 14:42 Patient left the ED. iw Signatures: Patricia Schwartz as Gloria Mccollum, RIO RN iw Emiliano Orourke NP WOMEN'S LACROSSE COACH pm1 Rosanna Chowdary RN RN ca1
[2020-05-05 15:19] VITALS: BP 131/78; TEMP 97.8; O2SAT 95
== END 2020-05-05 14:42 | disposition home or self-care (01) ==
LOC: ER 11:37
PROC: 0JQK0ZZ Repair Left Hand Subcutaneous Tissue and Fascia, Open Approach (ICD-10-PCS; principal; 2020-05-05)
DX: S61.012A Laceration without foreign body of left thumb without damage to nail, initial encounter (principal); W26.0XXA Contact with knife, initial encounter; Y93.9 Activity, unspecified; Y92.9 Unspecified place or not applicable; Z79.01 Long term (current) use of anticoagulants; Z79.82 Long term (current) use of aspirin; Z85.46 Personal history of malignant neoplasm of prostate; I10 Essential (primary) hypertension
CPT/HCPCS: 99283

== ENCOUNTER 2020-08-13 11:28 | Emergency (ER) | payer OTHER ==
--- OUTSIDE RECORDS SUMMARY | 2020-08-13 11:55 | XMS REPORT | Continuity of Care Document ---
:1945 Author Organization [facility] t Address [address] [place] [address] [address]. [address] [place] [address] Care Team Providers Name Role Phone Asked, No Pcp Primary Care Physician Unavailable Doctor Unassigned, Name Attending Clinician Unavailable Problems Condition Condition Condition Status Onset Resolution Last Treating Co mments Source Name Details Category Date Date Treatment Clinician Date Slurred Slurred Disease Active [place] speech speech 7-08 Methodi 00:00: st 00 SCAR (acute SCAR (acute Disease Active H [facility] kidney kidney 4-28 Methodi injury) injury) 00:00: st 00 Acute Acute Disease Active [place] renal renal 1-07 Methodi failure failure 00:00: st (ARF) (ARF) 00 Renal Renal Disease Active [place] failure failure 9-11 Methodi 00:00: st 00 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[place] (rapidly (rapidly 7-02 Method i progressiv progressiv 00:00: st e e 00 glomerulon glomerulon ephritis) ephritis) Rapidly Rapidly Disease Active [place] progressiv progressiv 5-17 Me thodi e e 00:00: st glomerulon glomerulon 00 ephritis ephritis Normocytic Normocytic Disease Active [place] anemia anemia 5-17 Methodi 00:00: st 00 Other Other Disease Active [place] proteinuri proteinuri 5-17 Me thodi a a 00:00: st 00 Essential Essential Disease Active Sarah ston hypertensi hypertensi 5-17 Me thodi on on 00:00: st 00 Acute Acute Disease Active [place] renal renal 5-12 Methodi failure failure 00:00: st 00 Allergies, Adverse Reactions, Alerts This patient has no known allergies or adverse reactions. Family History Family Member Diagnosis Comments Start Date Stop Date Source Maternal Diabetes type II [place] grandmother Sab[facility] Natural sister Alzheimer's disease H megha [facility] Natural sister Diabetes type II [place] [employer] Natural sister Hypertension [facility] Social History Social Habit Start Date Stop Date Quantity Comments Source Sex Assigned At [facility] ethodi Cigarettes smoked 2018-01-09 [facility] per 00:00:00 00:00:00 day) - Reported Cigarette 2018-01-09 2018-01-09 [place] Caleb ist pack-years 00:00:00 00:00:00 Tobacco use and 2018-01-09 2018-01-[address] [facility] ethodist exposure 00:00:00 00:00:00 Alcohol intake 2018-01-09 2018-01-09 Current drinker Yahir on [facility] 00:00:00 00:00:00 of alcohol (finding) Alcohol Comment 2017-11-19 2017-11-[address] [facility] ethodist 00:00:00 00:00:00 History of tobacco 1969-11-19 1979-07-22 Current smoker Ho gustavo [facility] use 00:00:00 00:00:00 Smoking Status Start Date Stop Date Source Former smoker 2018-01-09 00:00:00 2018-01-09 00:00:00 [facility] Medications Ordered Filled Start Stop Current Ordering [...] times a day. blood-gluco Yes Use as [facility] ton se meter 5-18 instructed Metho di (glucose 00:00: st monitoring 00 kit) kit Procedures This patient has no known procedures. Plan of Care Planned Activity Planned Date Details Comments Source Future Scheduled 2020-02-09 [facility] Test 00:00:00 [code = INFLUENZA VACCINE] Future Scheduled 2009 65+ PNEUMOCOCCAL [place] [facility] Test 00:00:00 VACCINE (1 of 1 - PPSV23) [code = 65+ PNEUMOCOCCAL VACCINE (1 of 1 - PPSV23)] Future Scheduled 1994 COLONOSCOPY SCREENING gustavo [facility] Test 00:00:00 [code = COLONOSCOPY SCREENING] Future Scheduled 1994 SHINGLES VACCINES (#1) [facility] Test 00:00:00 [code = SHINGLES VACCINES (#1)] Future Scheduled 1960 COVID-19 VACCINE (1 of [place] [facility] Test 00:00:00 2) [code = COVID-19 VACCINE (1 of 2)] Encounters Start End Encounter Admission Attending Care Care Encounter Source Date/Time Date/Time Type Type Clinicians Facility Department ID 2019-02-01 2019-02-01 Orders Doctor ISABEL [id number] 22 00:00:00 00:00:00 Only Unassigned, DON [id number] [place] [facility] [id number] Results This patient has no known results.
--- OUTSIDE RECORDS SUMMARY | 2020-08-13 11:55 | XMS REPORT | Clinical Summary ---
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
[2020-08-13 13:24] LABS: Absolute Lymphocytes (CBC) 0.5 K/uL (0.7-4.9); Basophils % 0.5 % (0-1.3); Hematocrit 27.6 % (39.6-49.0); Lymphocytes % 9.6 % (15.3-44.8); MPV 8.8 fL (7.6-11.3); RBC Red Blood Cell Count 2.98 M/uL (4.33-5.43)
[2020-08-13 13:25] LABS: Protime INR 0.96
[2020-08-13 13:41] LABS: ALT/SGPT 14 U/L (12-78); AST/SGOT 11 U/L (15-37); Albumin 3.1 g/dL (3.4-5.0); Alkaline Phosphatase 99 U/L (45-117); BUN Blood Urea Nitrogen 67 mg/dL (7-18); Bicarbonate 20 mmol/L (21-32); Bilirubin Direct < 0.1 mg/dL (0-0.2); Bilirubin Total 0.1 mg/dL (0.2-1.0); Glucose Level 97 mg/dL (74-106); Magnesium 2.3 mg/dL (1.8-2.4); NT PRO-BNP 6255 pg/mL (<450); Protein, Total 6.5 g/dL (6.4-8.2); Sodium Level 144 mmol/L (136-145); Troponin (Emerg Dept Use Only) 0.02 ng/mL (0.0-0.045)
[2020-08-13 13:44] LABS: Potassium 6.1 mmol/L (3.5-5.1)
--- NOTE | 2020-08-13 13:47 | RAD REPORT ---
EXAM DESCRIPTION: Clarisse Single View08/13/2020 1:35 pm CLINICAL HISTORY: Chest pain COMPARISON: March 2020 FINDINGS: The lungs appear clear of acute infiltrate. The heart is mildly to moderately enlarged. Upper lobe vessels prominent indicative of pulmonary venous hypertension
[2020-08-13] MEDS ORDERED: INSULIN -REGULAR HUMAN 50 UNIT/0.5 ML ML ONE (14:12)
[2020-08-13] MEDS ORDERED: ALBUTEROL 2.5 MG/3 ML NEB SOL ONE (14:13)
[2020-08-13] MEDS ORDERED: CALCIUM GLUCONATE 1 GM IVPB 1 GM/50 ML BAG IV ONE (14:13)
[2020-08-13] MEDS ORDERED: SOD POLYSTYREN SUL 15 GM/60 ML UCUP ONE (14:13)
[2020-08-13] MEDS ORDERED: D50W 25 GM/50 ML SYRINGE IV ONE (14:14)
[2020-08-13] MEDS ORDERED: FUROSEMIDE 40 MG/4 ML VIAL ONE (14:32)
[2020-08-13] MEDS ORDERED: NA CHLORIDE 0.9% 1,000 ML ONE (14:32)
[2020-08-13 18:36] LABS: Potassium 5.1 mmol/L (3.5-5.1)
--- NOTE | 2020-08-13 18:41 | EDPHYS ---
Physician Documentation [facility] Name: Garth Lane Age: 74 yrs Sex: Male : 1945 Arrival Date: 08/13/2020 Time: 11:31 Bed 13 Private MD: ED Physician Paul Mcmullen HPI: 08/13 12:46 This 74 yrs old Male presents to ER via Ambulatory with complaints of High jmm Potassium. 12:46 Onset: The symptoms/episode began/occurred at an unknown time. This is a 74 year old jmm male with a history fo ESRD, GERD, HTN that presents to the ED with no complaints. Sent by Dr. Dover due to elevated K. . Historical: - Allergies: 11:58 No Known Allergies; sv - PMHx: 11:58 GERD; Hypertension; Prostate Cancer; remission now; punctured lung, fx hip, fx ribs, sv skull fx after fall 2011.; used to be on HD; - PSHx: 11:58 prostate radiation, prostate sx-green light; Cholecystectomy; r hip; sv ROS: 12:46 Constitutional: Negative for fever, chills, and weight loss, Cardiovascular: Negative jmm for chest pain, palpitations, and edema, Respiratory: Negative for shortness of breath, cough, wheezing, and pleuritic chest pain, Abdomen/GI: Negative for abdominal pain, nausea, vomiting, diarrhea, and constipation, MS/Extremity: Negative for injury and deformity, Neuro: Negative for headache, weakness, numbness, tingling, and seizure. 12:46 All other systems are negative. Exam: 12:46 Constitutional: This is a well developed, well nourished patient who is awake, alert, jmm and in no acute distress. Head/Face: atraumatic. Eyes: EOMI, no conjunctival erythema appreciated ENT: Moist Mucus Membranes Neck: Trachea midline, Supple Chest/axilla: Normal chest wall appearance and motion. Cardiovascular: Regular rate and rhythm. No edema appreciated Respiratory: Normal respirations, no respiratory distress appreciated Abdomen/GI: Non distended, soft Back: Normal ROM Skin: General appearance color normal MS/ Extremity: Moves all extremities, no obvious deformities appreciated, no edema noted to the lower extremities Neuro: Awake and alert, normal gait Psych: Behavior is normal, Mood is normal, Patient is cooperative and pleasant 16:42 ECG was reviewed by the Attending Physician. [facility] Vital Signs: 11:59 BP 148 / 73; Pulse 70; Resp 16; Temp 98; Pulse Ox 100% ; Weight 72.57 kg; Height 5 ft. sv 2 in. (157.48 cm); Pain 0/10; 13:00 BP 119 / 59; Pulse 57; Resp 17; Pulse Ox 95% on R/A; tw2 14:29 BP 136 / 54; Pulse 85; Resp 20; Pulse Ox 100% on Nebulizer Mask; tw2 15:25 BP 145 / 60; Pulse 85; Resp 18; Pulse Ox 95% on R/A; tw2 16:48 BP 135 / 59; Pulse 88; Resp 17; Pulse Ox 99% on R/A; tw2 17:50 BP 139 / 59; Pulse 75; Resp 17; Pulse Ox 96% on R/A; tw2 18:44 BP 144 / 62; Pulse 71; Resp 17; Pulse Ox 95% on R/A; tw2 11:59 Body Mass Index 29.26 (72.57 kg, 157.48 cm) sv MDM: 12:57 Patient medically screened. [facility] 18:39 Data reviewed: vital signs, nurses notes. Counseling: I had a detailed discussion with [facility] the patient and/or guardian regarding: the historical points, exam findings, and any diagnostic results supporting the discharge/admit diagnosis, lab results, radiology results, the need for outpatient follow up, to return to the emergency department if symptoms worsen or persist or if there are any questions or concerns that arise at home. ED course: I discussed the patient's case with Dr. Dee whom discussed the case with Dr. Dover. Recommends IVF along with hyperkalemia frontline treatment with repeat bmp. Will follow up with patient in clinic if K levels WNL. 08/13 12:46 Order name: Basic Metabolic Panel [facility] 08/13 12:46 Order name: CBC with Diff; Complete Time: 13:[address] [facility] 08/13 12:46 Order name: LFT's [facility] 08/13 12:46 Order name: Magnesium; Complete Time: 13:[address] [facility] 08/13 12:46 Order name: NT PRO-BNP; Complete Time: 13:[address] [facility] 08/13 12:46 Order name: PT-INR; Complete Time: 13:[address] [facility] 08/13 12:46 Order name: Troponin (emerg Dept Use Only); Complete Time: 13:45 jmm 08/13 12:46 Order name: XRAY Chest (1 view); Complete Time: 13:53 jmm 08/13 12:47 Order name: Basic Metabolic Panel; Complete Time: 13:45 EDMS / 12:47 Order name: Liver (Hepatic) Function; Complete Time: 13:45 EDMS 03 17:16 Order name: BMP; Complete Time: 20:34 jmm 08/13 12:46 Order name: EKG; Complete Time: 12:47 jmm 08/13 12:46 Order name: Cardiac monitoring; Complete Time: 13:50 jmm 08/13 12:46 Order name: EKG - Nurse/Tech; Complete Time: 13:30 jmm 08/13 12:46 Order name: IV Saline Lock; Complete Time: 13:18 jmm 08/13 12:46 Order name: Labs collected and sent; Complete Time: 13:17 jmm 08/13 12:46 Order name: O2 Per Protocol; Complete Time: 13:17 jmm 08/13 12:46 Order name: O2 Sat Monitoring; Complete Time: 13:18 jmm EC:42 Rate is 74 beats/min. Rhythm is irregular, RBB. QRS [place] is Normal. GA interval is jmm normal. QRS interval is normal. QT interval is normal. No Q waves. T waves are Normal. T waves are Peaked in leads II, V3, V4, V5, V6. No ST changes noted. Reviewed by me. Administered Medications: 14:08 Drug: Insulin Regular Human 10 units {Co-Signature: sv (Alejandra Burr RN).} Route: tw2 IVP; Site: right antecubital; 14:23 Follow up: Response: No adverse reaction tw2 14:09 Drug: D50W 50 ml Route: IVP; Site: right antecubital; tw2 14:23 Follow up: Response: No adverse reaction tw2 14:11 Drug: Albuterol 2.5 mg Route: Inhalation; tw2 14:12 Drug: Calcium Gluconate 1 grams Route: IVPB; Infused Over: 60 mins; Site: right tw2 antecubital; 16:12 Follow up: Response: No adverse reaction; IV Status: Completed infusion; IV Intake: tw2 100ml 14:16 Drug: Albuterol 2.5 mg Route: Inhalation; tw2 14:16 Drug: Albuterol 2.5 mg Route: Inhalation; tw2 14:21 Drug: NS 0.9% 1000 ml Route: IV; Rate: 1 bolus; Site: right antecubital; tw2 15:30 Follow up: Response: No adverse reaction; IV Status: Completed infusion; IV Intake: tw2 1000ml 14:21 Drug: Lasix 40 mg Route: IVP; Site: right antecubital; tw2 16:49 Follow up: Response: No adverse reaction tw2 14:23 Drug: Kayexalate 60 grams Route: PO; tw2 14:24 Follow up: Response: No adverse reaction tw2 Disposition: 08/14 06:02 Co-signature as Attending Physician, Paul Mcmullen MD I agree with the assessment and kdr plan of care. Disposition: 08/13/20 18:41 Discharged to Home. Impression: Hyperkalemia. - Condition is Stable. - Discharge Instructions: Hyperkalemia. - Prescriptions for Veltassa 16.8 gram Oral powder in packet - take 1 packet by ORAL route once daily; 30 packet. - Medication Reconciliation Form, Thank You Letter, Antibiotic Education, Prescription Opioid Use form. - Follow up: Private Physician; When: 2 - 3 days; Reason: Recheck today's complaints, Continuance of care, Re-evaluation by your physician. Signatures: Dispatcher [employer] Alejandra Melendrez RN RN sv Rittger, Kevin, MD MD kdr Mickail, Joel, PA PA jmm Wise, Tara, RN RN tw2 Alejandra Burr RN sv Corrections: (The following items were deleted from the chart) 08/13 16:45 16:42 Rate is 74 beats/min. Rhythm is irregular, RBB. QRS [place] is Normal. GA interval [facility] is normal. QRS interval is normal. QT interval is normal. No Q waves. T waves are Normal. No ST changes noted. Reviewed by me. aydin 18:56 18:41 08/13/2020 18:41 Discharged to Home. Impression: Hyperkalemia. Condition is tw2 Stable. Forms are Medication Reconciliation Form, Thank You Letter, Antibiotic Education, Prescription Opioid Use. Follow up: Private Physician; When: 2 - 3 days; Reason: Recheck today's complaints, Continuance of care, Re-evaluation by your physician. aydin
--- NOTE | 2020-08-13 18:41 | ER ---
Nurse's Notes [facility] Name: Garth Lane Age: 74 yrs Sex: Male : 1945 Arrival Date: 08/13/2020 Time: 11:31 Bed 13 Private MD: Diagnosis: Hyperkalemia Presentation: 08/13 11:57 Chief complaint: Patient states: sent by Dr Gupta because his calcium is high. Labs sv drawn at [facility]. Coronavirus screen: Client denies travel out of the [place] in the last 14 days. At this time, the client does not indicate any symptoms associated with coronavirus-19. Ebola Screen: No symptoms or risks identified at this time. Risk Assessment: Do you want to hurt yourself or someone else? Patient reports no desire to harm self or others. Onset of symptoms was August 13, 2020. 11:57 Method Of Arrival: Ambulatory sv 11:[address] Gupta's office to get confirmation on if its a potassium or calcium sv issue. Answering service sent Dr Gupta a text to call us back. 11:59 Initial Sepsis Screen: Does the patient meet any 2 criteria? No. Patient's initial sv sepsis screen is negative. Does the patient have a suspected source of infection? No. Patient's initial sepsis screen is negative. 12:[address] Gupta's office called back and said they sent him over here for potassium of sv 6.5. 12:40 Acuity: MARIO 3 sv Triage Assessment: 12:01 General: Appears in no apparent distress. comfortable, Behavior is calm, cooperative, sv appropriate for age. Pain: Denies pain. Neuro: Level of Consciousness is awake, alert, obeys commands, Oriented to person, place, time, situation, Gait is steady. Respiratory: Respiratory effort is even, unlabored. Historical: - Allergies: 11:58 No Known Allergies; sv - PMHx: 11:58 GERD; Hypertension; Prostate Cancer; remission now; punctured lung, fx hip, fx ribs, sv skull fx after fall 2011.; used to be on HD; - PSHx: 11:58 prostate radiation, prostate sx-green light; Cholecystectomy; r hip; sv Screenin:57 Abuse screen: Denies threats or abuse. Nutritional screening: No deficits noted. tw2 Tuberculosis screening: No symptoms or risk factors identified. Fall Risk Secondary diagnosis (15 points) impaired mobility. Assessment: 13:00 General: Appears in no apparent distress. well groomed, Behavior is calm, cooperative, tw2 appropriate for age. Pain: Denies pain. Neuro: Level of Consciousness is awake, alert, obeys commands, Oriented to person, place, time, situation. Cardiovascular: Patient's skin is warm and dry. Respiratory: Airway is patent Respiratory effort is even, unlabored, Respiratory pattern is regular, symmetrical. GI: No signs and/or symptoms were reported involving the gastrointestinal system. : No signs and/or symptoms were reported regarding the genitourinary system. EENT: No signs and/or symptoms were reported regarding the EENT system. Derm: No signs and/or symptoms reported regarding the dermatologic system. Musculoskeletal: Range of motion: intact in all extremities. 14:31 Reassessment: Patient appears in no apparent distress at this time. No changes from tw2 previously documented assessment. Patient and/or family updated on plan of care and expected duration. Pain level reassessed. Patient is alert, oriented x 3, equal unlabored respirations, skin warm/dry/pink. 15:25 Reassessment: Patient appears in no apparent distress at this time. No changes from tw2 previously documented assessment. Patient and/or family updated on plan of care and expected duration. Pain level reassessed. Patient is alert, oriented x 3, equal unlabored respirations, skin warm/dry/pink. 16:49 Reassessment: Patient appears in no apparent distress at this time. No changes from tw2 previously documented assessment. Patient and/or family updated on plan of care and expected duration. Pain level reassessed. Patient is alert, oriented x 3, equal unlabored respirations, skin warm/dry/pink. 17:50 Reassessment: Patient appears in no apparent distress at this time. No changes from tw2 previously documented assessment. Patient and/or family updated on plan of care and expected duration. Pain level reassessed. Patient is alert, oriented x 3, equal unlabored respirations, skin warm/dry/pink. 18:01 Reassessment: pt in restroom at this time. tw2 18:44 Reassessment: Patient appears in no apparent distress at this time. No changes from tw2 previously documented assessment. Patient and/or family updated on plan of care and expected duration. Pain level reassessed. Patient is alert, oriented x 3, equal unlabored respirations, skin warm/dry/pink. 18:56 Reassessment: Patient appears in no apparent distress at this time. No changes from tw2 previously documented assessment. Patient and/or family updated on plan of care and expected duration. Pain level reassessed. Patient is alert, oriented x 3, equal unlabored respirations, skin warm/dry/pink. Vital Signs: 11:59 BP 148 / 73; Pulse 70; Resp 16; Temp 98; Pulse Ox 100% ; Weight 72.57 kg; Height 5 ft. sv 2 in. (157.48 cm); Pain 0/10; 13:00 BP 119 / 59; Pulse 57; Resp 17; Pulse Ox 95% on R/A; tw2 14:29 BP 136 / 54; Pulse 85; Resp 20; Pulse Ox 100% on Nebulizer Mask; tw2 15:25 BP 145 / 60; Pulse 85; Resp 18; Pulse Ox 95% on R/A; tw2 16:48 BP 135 / 59; Pulse 88; Resp 17; Pulse Ox 99% on R/A; tw2 17:50 BP 139 / 59; Pulse 75; Resp 17; Pulse Ox 96% on R/A; tw2 18:44 BP 144 / 62; Pulse 71; Resp 17; Pulse Ox 95% on R/A; tw2 11:59 Body Mass Index 29.26 (72.57 kg, 157.48 cm) sv ED Course: 11:31 Patient arrived in ED. ds1 11:57 Arm band placed on. sv 12:01 Triage completed. sv 12:42 Bed in low position. Call light in reach. tw2 12:46 Juan Mayer PA is PHCP. m 12:46 Paul Mcmullen MD is Attending Physician. jmm 12:57 Shelly Nix, RIO is Primary Nurse. tw2 13:12 Initial lab(s) drawn, by me, sent to lab. Inserted saline lock: 20 gauge in right dh3 antecubital area, using aseptic technique. Blood collected. 13:32 LFT's Sent. sv 13:32 Basic Metabolic Panel Sent. sv 13:35 XRAY Chest (1 view) In Process Unspecified. EDMS 13:40 EKG done, by ED staff, reviewed by Juan ECHAVARRIA. dh3 18:25 BMP Sent. tw2 18:49 No provider procedures requiring assistance completed. IV discontinued, intact, tw2 bleeding controlled, No redness/swelling at site. Pressure dressing applied. Administered Medications: 14:08 Drug: Insulin Regular Human 10 units {Co-Signature: sv (Alejandra Burr RN).} Route: tw2 IVP; Site: right antecubital; 14:23 Follow up: Response: No adverse reaction tw2 14:09 Drug: D50W 50 ml Route: IVP; Site: right antecubital; tw2 14:23 Follow up: Response: No adverse reaction tw2 14:11 Drug: Albuterol 2.5 mg Route: Inhalation; tw2 14:12 Drug: Calcium Gluconate 1 grams Route: IVPB; Infused Over: 60 mins; Site: right tw2 antecubital; 16:12 Follow up: Response: No adverse reaction; IV Status: Completed infusion; IV Intake: tw2 100ml 14:16 Drug: Albuterol 2.5 mg Route: Inhalation; tw2 14:16 Drug: Albuterol 2.5 mg Route: Inhalation; tw2 14:21 Drug: NS 0.9% 1000 ml Route: IV; Rate: 1 bolus; Site: right antecubital; tw2 15:30 Follow up: Response: No adverse reaction; IV Status: Completed infusion; IV Intake: tw2 1000ml 14:21 Drug: Lasix 40 mg Route: IVP; Site: right antecubital; tw2 16:49 Follow up: Response: No adverse reaction tw2 14:23 Drug: Kayexalate 60 grams Route: PO; tw2 14:24 Follow up: Response: No adverse reaction tw2 Intake: 15:30 IV: 1000ml; Total: 1000ml. tw2 16:12 IV: 100ml; Total: 1100ml. tw2 16:49 IV: 1000ml; Total: 2100ml. tw2 Output: 16:49 Urine: 400ml (Voided); Stool: 1 (Formed Stool) ; Total: 400ml. tw2 Outcome: 18:41 Discharge ordered by MD. perrin 18:49 Discharged to home ambulatory, with family. tw2 18:49 Condition: stable 18:49 Discharge instructions given to patient, Instructed on discharge instructions, follow up and referral plans. medication usage, Demonstrated understanding of instructions, follow-up care, medications, Prescriptions given X 1. 18:56 Patient left the ED. tw2 Signatures: Dispatcher [employer] Alejandra Melendrez, RIO PATE sv Juan Mayer PA PA jmm Sanford, Fatoumata ds1 Shelly Nix RN RN tw2 Sachi Jones 3 Alejandra Burr RN sv Corrections: (The following items were deleted from the chart) 12:02 11:57 Chief complaint: Patient states: sent by Dr Ely because his calcium is sv high. Labs drawn at [facility]. sv 12:40 11:59 Acuity: MARIO 4 sv sv 12:40 11:59 Acuity: MARIO 3 sv sv 12:40 11:[address] Gupta's office called back and said they sent him over here for sv potassium of 6.5 sv 14:30 14:29 BP 136 / 54; Pulse 85bpm; Resp 20bpm; Pulse Ox 100% RA; tw2 tw2
[2020-08-13 19:04] VITALS: TEMP 98
[2020-08-13 19:12] VITALS: BP 144/62; O2SAT 95
== END 2020-08-13 18:56 | disposition home or self-care (01) ==
LOC: ER 11:28
DX: E87.5 Hyperkalemia (principal); I12.0 Hypertensive chronic kidney disease with stage 5 chronic kidney disease or end stage renal disease; N18.6 End stage renal disease; Z85.46 Personal history of malignant neoplasm of prostate
CPT/HCPCS: 96365; 93005; 85025; 80048 ×2; 36415; 83735; 85610; 80076; 84484; 83880; 71045; 96375; 99284; 96366; J1940; J0610; J7030

== ENCOUNTER 2020-10-22 10:54 | Inpatient (IN) | payer OTHER ==
--- OUTSIDE RECORDS SUMMARY | 2020-10-22 10:56 | XMS REPORT | Continuity of Care Document ---
:[address] [facility] t Address [address] [place] [address] [address] [place] [address] Care Team Providers Name Role Phone Asked, No Pcp Primary Care Physician Unavailable Doctor Unassigned, Name Attending Clinician Unavailable Problems Condition Condition Condition Status Onset Resolution Last Treating Co mments Source Name Details Category Date Date Treatment Clinician Date Slurred Slurred Disease Active [place] speech speech 7-08 [facility] 00:00: st 00 SCAR (acute SCAR (acute Disease Active [facility] kidney kidney 4-28 [facility] injury) injury) 00:00: st 00 Acute Acute Disease Active [place] renal renal 1-07 [facility] failure failure 00:00: st (ARF) (ARF) 00 Renal Renal Disease Active [place] failure failure 9-11 [facility] 00:00: st 00 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[place] (rapidly (rapidly 7-02 Method i progressiv progressiv 00:00: st e e 00 glomerulon glomerulon ephritis) ephritis) Rapidly Rapidly Disease Active [place] progressiv progressiv 5-17 Me thodi e e 00:00: st glomerulon glomerulon 00 ephritis ephritis Normocytic Normocytic Disease Active [place] anemia anemia 5-17 Method[facility] 00:00: st 00 Other Other Disease Active [place] proteinuri proteinuri 5-17 Me thodi a a 00:00: st 00 Essential Essential Disease Active Sarah ston hypertensi hypertensi 5-17 Me thodi on on 00:00: st 00 Acute Acute Disease Active [place] renal renal 5-12 [facility] failure failure 00:00: st 00 Allergies, Adverse Reactions, Alerts This patient has no known allergies or adverse reactions. Family History Family Member Diagnosis Comments Start Date Stop Date Source Maternal Diabetes type II [place] grandmother Yarsanism Natural sister Alzheimer's disease H megha Yarsanism Natural sister Diabetes type II [place] Yarsanism Natural sister Hypertension Dia Yarsanism Social History Social Habit Start Date Stop Date Quantity Comments Source Cigarettes smoked 2018-01-09 2018-01-09 Dia Yarsanism current (pack per 00:00:00 00:00:00 day) - Reported Cigarette 2018-01-09 2018-01-09 [place] pack-years 00:00:00 00:00:00 Tobacco use and 2018-01-09 2018-01-09 Never used [place] ethodist exposure 00:00:00 00:00:00 Alcohol intake 2018-01-09 2018-01-09 Current drinker Yahir reed Yarsanism 00:00:00 00:00:00 of alcohol (finding) Alcohol Comment 2017-11-19 2017-11-19 per week Dia Gilbert ethodist 00:00:00 00:00:00 History of tobacco 1969-11-19 1979-07-22 Current smoker [place] Turner use 00:00:00 00:00:00 Sex [birth year] [place] 00:00:00 00:00:00 Smoking Status Start Date Stop Date Source Former smoker 2018-01-09 00:00:00 2018-01-09 00:00:00 [place] Medications Ordered Filled Start Stop Current Ordering [...] 1 Dia complex-vit 7-10 tablet by Met maxi real 17:11: mouth st C-folic 13 daily. acid (NEPHRO-VIT E OTC) 0.8 mg tablet sulfamethox Yes 1{tbl} Q2D Take 1 Davidson chen azole-trime 7-10 tablet by Met boothe thoprim 17:11: mouth st (BACTRIM 13 every DS) 800-160 other day. mg per tablet metoprolol Yes 12.5mg Q.5D Take 12.5 Dia tartrate 7-10 mg by Methodrenetta (LOPRESSOR) 17:11: mouth 2 st 25 mg 13 (two) tablet times a day. blood-gluco Yes Use as [place] se meter 5-18 instructed Venessao di (glucose 00:00: st monitoring 00 kit) kit Procedures This patient has no known procedures. Plan of Care Planned Activity Planned Date Details Comments Source Future Scheduled 2021-02-08 INFLUENZA VACCINE Domo mitchell Yarsanism Test 00:00:00 [code = INFLUENZA VACCINE] Future Scheduled 2009 65+ PNEUMOCOCCAL Dia Yarsanism Test 00:00:00 VACCINE (1 of 1 - PPSV23) [code = 65+ PNEUMOCOCCAL VACCINE (1 of 1 - PPSV23)] Future Scheduled 1994 COLONOSCOPY SCREENING Davidson maya Yarsanism Test 00:00:00 [code = COLONOSCOPY SCREENING] Future Scheduled 1994 SHINGLES VACCINES (#1) Chinmay megha Yarsanism Test 00:00:00 [code = SHINGLES VACCINES (#1)] Future Scheduled 1960 COVID-19 VACCINE (1) Sarahsierra ruiz Yarsanism Test 00:00:00 [code = COVID-19 VACCINE (1)] Encounters Start End Encounter Admission Attending Care Care Encounter Source Date/Time Date/Time Type Type Clinicians Facility Department ID 2019-02-01 2019-02-01 Orders Doctor ISABEL [id number] 22 00:00:00 00:00:00 Only Unassigned, DON [id number] [place] [facility] [id number] Results This patient has no known results.
--- NOTE | 2020-10-22 12:12 | RAD REPORT ---
EXAM DESCRIPTION: RAD - Chest Pa And Lat (2 Views) - 10/22/2020 11:31 am CLINICAL HISTORY: COUGH, fever, shortness of breath COMPARISON: August 13 ; May 2019 TECHNIQUE: Frontal and lateral views of the chest were obtained. FINDINGS: The lungs are fibrotic as a baseline. Interstitial and alveolar opacities are increased in the lower left lung field compared to the August study. Early left lung base pneumonia is suspecte d. No significant failure or volume overload. Cardiac silhouette is enlarged but stable. Pericardial fat pads are present. No abnormal vascular e ngorgement. Trachea is midline. No pleural effusion or pneumothorax seen. Extensive old rib trauma n oted on the right. Osteopenic and degenerative spine changes are present. Ankylosing spondylitis oleary ges are evident in the spine as well. No aortic abnormality. IMPRESSION: Suspected mild or early left lung base pneumonia superimposed on chronic interstitial tami ng disease. Additional nonacute findings are similar to prior imaging.
[2020-10-22 13:04] LABS: Absolute Lymphocytes (CBC) 0.3 K/uL (0.7-4.9); Basophils % 0.3 % (0-1.3); Hematocrit 31.4 % (39.6-49.0); Lymphocytes % 3.5 % (15.3-44.8); MPV 8.9 fL (7.6-11.3)
[2020-10-22] MEDS ORDERED: AZITHROMYCIN IV 500 MG in NA CHLORIDE 0.9% 250 ML IVPB ONE (13:15)
[2020-10-22] MEDS ORDERED: ACETAMINOPHEN 500 MG TAB ONE (13:17)
[2020-10-22] MEDS ORDERED: CEFTRIAXONE/SWI 1gm 1 GM/10 ML SYR ONE (13:20)
[2020-10-22] MEDS ORDERED: METHYLPREDNISOLONE 125 MG INJ ONE (13:20)
[2020-10-22 14:06] LABS: Blood Morphology Comment NOT SEEN (NOT SEEN); Platelet Estimate ADEQ; White Blood Cell Scan OK (OK)
[2020-10-22] MEDS ORDERED: NA CHLORIDE 0.9% 500 ML ONE (14:44)
[2020-10-22 14:53] LABS: SARS-COV-2 RT PCR POSITIVE (NEGATIVE)
--- NOTE | 2020-10-22 15:21 | EDPHYS ---
Physician Documentation [facility] Name: Garth Lane Age: 75 yrs Sex: Male : 1945 Arrival Date: 10/22/2020 Time: 10:56 Bed 17 Private MD: ED Physician Paul Mcmullen HPI: 10/22 16:58 This 75 yrs old Male presents to ER via Ambulatory with complaints of kb Shortness Of Breath, Fever, Cough. 16:58 The patient or guardian reports cough, difficulty breathing. Onset: The kb symptoms/episode began/occurred 3 day(s) ago. Severity of symptoms: At their worst the symptoms were moderate, in the emergency department the symptoms are unchanged. Modifying factors: The symptoms are alleviated by nothing, the symptoms are aggravated by nothing. Associated signs and symptoms: Pertinent positives: fever, Pertinent negatives: chest pain, diarrhea, ear ache, nausea, rhinorrhea, sore throat, vomiting. The patient has not experienced similar symptoms in the past. The patient has not recently seen a physician. Historical: - Allergies: 11:04 No Known Allergies; ll1 - PMHx: 11:04 Prostate Cancer; remission now; Hypertension; GERD; punctured lung, fx hip, fx ribs, ll1 skull fx after fall 2011.; used to be on HD; - PSHx: 11:04 prostate radiation, prostate sx-green light; Cholecystectomy; r hip; ll1 - Immunization history:: Flu vaccine is up to date. - Social history:: Smoking status: Patient denies any tobacco usage or history of. ROS: 16:56 Cardiovascular: Negative for chest pain, palpitations, and edema, MS/Extremity: kb Negative for injury and deformity, Skin: Negative for injury, rash, and discoloration, Neuro: Negative for headache, weakness, numbness, tingling, and seizure. 16:56 Constitutional: Positive for fatigue, fever, malaise. 16:56 Respiratory: Positive for cough, shortness of breath. Exam: 16:57 Constitutional: This is a well developed, well nourished patient who is awake, alert, kb and in no acute distress. Head/Face: Normocephalic, atraumatic. Cardiovascular: Regular rate and rhythm with a normal S1 and S2. No gallops, murmurs, or rubs. No pulse deficits. Respiratory: Respirations even and unlabored. No increased work of breathing, no retractions or nasal flaring. Abdomen/GI: Soft, non-tender. No distention Skin: Warm, dry with normal turgor. Normal color. MS/ Extremity: Pulses equal, no cyanosis. Neurovascular intact. Full, normal range of motion. Neuro: Awake and alert, GCS 15, oriented to person, place, time, and situation. Moves all extremities. Normal gait. 18:05 ECG was reviewed by the Attending Physician. kb Vital Signs: 11:05 BP 120 / 96; Pulse 93; Resp 18; Temp 100.6; Pulse Ox 92% on R/A; Weight 72.57 kg; ll1 Height 5 ft. 2 in. (157.48 cm); Pain 0/10; 11:07 ll1 12:20 Pulse 105; Resp 22 S; Pulse Ox 87% on R/A; ca1 12:25 BP 111 / 53; Pulse 95; Resp 20; Pulse Ox 97% on 2 lpm NC; ca1 12:57 Temp 100.6(O); ca1 13:00 BP 117 / 57; Pulse 91; Resp 18 S; Pulse Ox 97% on 2 lpm NC; ca1 14:19 BP 83 / 42; Pulse 77; Resp 16 S; Pulse Ox 96% on 2 lpm NC; ca1 14:31 Temp 99.3(O); ca1 14:57 BP 94 / 61; Pulse 81; Resp 16 S; Pulse Ox 99% on 2 lpm NC; ca1 15:11 BP 97 / 46; Pulse 97; Resp 18 S; Pulse Ox 98% on 2 lpm NC; ca1 16:00 BP 115 / 63; Pulse 91; Resp 16 S; Pulse Ox 95% on R/A; ca1 17:00 BP 107 / 61; Pulse 85; Resp 19; Pulse Ox 92% on R/A; ca1 18:17 BP 108 / 52; Pulse 82; Resp 19 S; Pulse Ox 95% on R/A; ca1 19:43 BP 105 / 50; Pulse 83; Resp 19; Temp 98.2; Pulse Ox 95% on 2 lpm NC; ll1 11:05 Body Mass Index 29.26 (72.57 kg, 157.48 cm) ll1 11:07 O2 sat 92-95% in triage ll1 12:20 O2 sat at 87% after ambulation from lobby to room. Placed pt on O2 via NC at 2LPM, O2 ca1 sat increased to 97% MDM: 12:26 Patient medically screened. kb 15:21 Data reviewed: vital signs, nurses notes. Data interpreted: Pulse oximetry: on room air kb is 98 %. Interpretation: normal. Counseling: I had a detailed discussion with the patient and/or guardian regarding: the historical points, exam findings, and any diagnostic results supporting the discharge/admit diagnosis, lab results, radiology results, the need for further work-up and treatment in the hospital. Physician consultation: Mason Gill MD was contacted at 15:22, regarding admission, and will see patient in ED. 10/22 12:27 Order name: CBC with Diff kb 10/22 12:27 Order name: Basic Metabolic Panel kb 10/22 12:27 Order name: Blood Culture Adult (2) kb 10/22 12:27 Order name: Procalcitonin kb 10/22 12:27 Order name: Lactate kb 10/22 12:27 Order name: CBC with Automated Diff; Complete Time: 14:08 EDMS 10/22 12:27 Order name: Basic Metabolic Panel; Complete Time: 19:26 EDMS 10/22 12:27 Order name: Blood Culture EDMS 10/22 12:27 Order name: Procalcitonin; Complete Time: 13:52 EDMS 10/22 12:27 Order name: Lactate; Complete Time: 13:32 EDMS 10/22 13:22 Order name: CBC Smear Scan; Complete Time: 14:08 EDMS 10/22 14:53 Order name: COVID-19/FLU A+B; Complete Time: 14:53 EDMS 10/22 11:29 Order name: Chest Pa And Lat (2 Views); Complete Time: 12:26 EDMS 10/22 12:27 Order name: IV Start; Complete Time: 12:57 kb EC:05 Rate is 95 beats/min. Rhythm is regular. QRS Fletcher is Normal. AR interval is normal at kb 124 msec. QRS interval is normal at 136 msec. QT interval is normal at 388 msec. Administered Medications: 13:00 Drug: Tylenol 1000 mg Route: PO; ca1 14:30 Follow up: Response: No adverse reaction; Temperature is decreased ca1 13:03 Drug: SOLU-Medrol (methylPrednisoLONE) 125 mg Route: IVP; Site: left antecubital; ca1 14:28 Follow up: Response: No adverse reaction ca1 13:06 Drug: Rocephin (cefTRIAXone) 1 grams Route: IV; Rate: calculated rate; Site: left ca1 antecubital; 14:27 Follow up: Response: No adverse reaction; IV Status: Completed infusion ca1 13:17 Drug: Zithromax (azithromycin) 500 mg Route: IVPB; Infused Over: 1 hrs; Site: left ca1 antecubital; 14:27 Follow up: Response: No adverse reaction; IV Status: Completed infusion; IV Intake: ca1 250ml 14:31 Drug: NS 0.9% 500 ml Route: IV; Rate: bolus; Site: left antecubital; ca1 15:26 Follow up: Response: No adverse reaction; IV Status: Completed infusion; IV Intake: ca1 500ml Disposition: 10/23 07:28 Co-signature as Attending Physician, Paul Mcmullen MD I agree with the assessment and kdr plan of care. Disposition: 10/22/20 15:20 Hospitalization ordered by Mason Gill for Observation. Preliminary diagnosis are Coronavirus infection, unspecified, Pneumonia, unspecified organism, Hypoxia. - Bed requested for Telemetry/MedSurg (observation). - Status is Observation. ll1 - Condition is Stable. - Problem is new. - Symptoms are unchanged. Signatures: Dispatcher [employer] EDIL Nia Connell, COTTON BREEDER-C COTTON BREEDER-Theresa Delgado Kevin, MD MD [facility] Rosanna Chowdary RN RN ca1 Ros Beal RN RN ll1 Corrections: (The following items were deleted from the chart) 10/22 11:29 11:13 Chest Single View+RAD.RAD.BRZ ordered. EDMS EDMS 13:47 12:28 CORONAVIRUS+MR.LAB.BRZ ordered. EDMS EDMS 13:47 12:28 Influenza Screen (A \T\ B)+BA.LAB.BRZ ordered. EDIL EDMS 18:46 15:20 Hospitalization Ordered by Mason Gill MD for Observation. Preliminary bd diagnosis is Coronavirus infection, unspecified; Pneumonia, unspecified organism; Hypoxia. Bed requested for Telemetry/MedSurg (observation). Status is Observation. Condition is Stable. Problem is new. Symptoms are unchanged. kb 20:56 18:46 10/22/2020 15:20 Hospitalization Ordered by Mason Gill MD for Observation. ll1 Preliminary diagnosis is Coronavirus infection, unspecified; Pneumonia, unspecified organism; Hypoxia. Bed requested for Telemetry/MedSurg (observation). Status is Observation. Condition is Stable. Problem is new. Symptoms are unchanged. bd
--- NOTE | 2020-10-22 15:21 | ER ---
Nurse's Notes [facility] Name: Garth Lane Age: 75 yrs Sex: Male : 1945 Arrival Date: 10/22/2020 Time: 10:56 Bed 17 Private MD: Diagnosis: Coronavirus infection, unspecified;Pneumonia, unspecified organism;Hypoxia Presentation: 10/22 11:05 Chief complaint: Patient states: SOB, cough fever, weak since Tuesday. Coronavirus ll1 screen: Client denies travel out of the [place] in the last 14 days. cough unrelated to allergies, diarrhea, difficulty breathing, fatigue, fever, sore throat, Client presents with at least one sign or symptom that may indicate coronavirus-19. Standard/surgical mask placed on the client. Ebola Screen: Patient denies travel to an Ebola-affected area in the 21 days before illness onset. Initial Sepsis Screen: Does the patient meet any 2 criteria? HR > 90 bpm. No. Patient's initial sepsis screen is negative. Does the patient have a suspected source of infection? Yes: Productive cough/pneumonia. Risk Assessment: Do you want to hurt yourself or someone else? Patient reports no desire to harm self or others. Onset of symptoms was October 20, 2020. 11:05 Method Of Arrival: Ambulatory ll1 11:05 Acuity: MARIO 3 ll1 Triage Assessment: 12:53 Respiratory: Onset: The symptoms/episode began/occurred. ca1 12:53 Respiratory: ca1 Historical: - Allergies: 11:04 No Known Allergies; ll1 - PMHx: 11:04 Prostate Cancer; remission now; Hypertension; GERD; punctured lung, fx hip, fx ribs, ll1 skull fx after fall 2011.; used to be on HD; - PSHx: 11:04 prostate radiation, prostate sx-green light; Cholecystectomy; r hip; ll1 - Immunization history:: Flu vaccine is up to date. - Social history:: Smoking status: Patient denies any tobacco usage or history of. Screenin:26 Abuse screen: Denies threats or abuse. Denies injuries from another. Nutritional ca1 screening: No deficits noted. Tuberculosis screening: No symptoms or risk factors identified. Fall Risk IV access (20 points). Assessment: 12:26 General: Appears in no apparent distress. comfortable, Behavior is calm, cooperative, ca1 appropriate for age, Reports feeling ill for fatigue for >3 days. Pain: Denies pain. Neuro: Level of Consciousness is awake, alert, obeys commands, Oriented to person, place, time, situation. Cardiovascular: Heart tones S1 S2 present Capillary refill < 3 seconds Patient's skin is warm and dry. Rhythm is sinus tachycardia. Respiratory: Reports shortness of breath since a week [employer]OR [employer] cough that is Airway is patent Respiratory effort is even, unlabored, Respiratory pattern is regular, symmetrical, GI: Abdomen is round non-distended, Bowel sounds present X 4 quads. Abd is soft and non tender X 4 quads. : No signs and/or symptoms were reported regarding the genitourinary system. EENT: Throat is clear. Derm: Skin is intact, is healthy with good turgor, Skin is pink, warm \T\ dry. Musculoskeletal: Circulation, motion, and sensation intact. Capillary refill < 3 seconds. 13:30 Reassessment: Patient appears in no apparent distress at this time. Patient and/or ca1 family updated on plan of care and expected duration. Pain level reassessed. Patient is alert, oriented x 3, equal unlabored respirations, skin warm/dry/pink. 14:32 Reassessment: Patient appears in no apparent distress at this time. Patient and/or ca1 family updated on plan of care and expected duration. Pain level reassessed. Patient is alert, oriented x 3, equal unlabored respirations, skin warm/dry/pink. 15:30 Reassessment: Patient appears in no apparent distress at this time. Patient and/or ca1 family updated on plan of care and expected duration. Pain level reassessed. Patient is alert, oriented x 3, equal unlabored respirations, skin warm/dry/pink. 16:30 Reassessment: Patient appears in no apparent distress at this time. Patient and/or ca1 family updated on plan of care and expected duration. Pain level reassessed. Patient is alert, oriented x 3, equal unlabored respirations, skin warm/dry/pink. 16:30 Reassessment: Dr. Gill at bedside, VO to put pt on RA and see O2 sats. ca1 18:17 Reassessment: Patient appears in no apparent distress at this time. Patient and/or ca1 family updated on plan of care and expected duration. Pain level reassessed. Patient is alert, oriented x 3, equal unlabored respirations, skin warm/dry/pink. 19:15 Reassessment: No changes from previously documented assessment. Patient and/or family ll1 updated on plan of care and expected duration. Pain level reassessed. 20:15 Reassessment: No changes from previously documented assessment. Patient and/or family ll1 updated on plan of care and expected duration. Pain level reassessed. Patient is alert, oriented x 3, equal unlabored respirations, skin warm/dry/pink. Vital Signs: 11:05 BP 120 / 96; Pulse 93; Resp 18; Temp 100.6; Pulse Ox 92% on R/A; Weight 72.57 kg; ll1 Height 5 ft. 2 in. (157.48 cm); Pain 0/10; 11:07 ll1 12:20 Pulse 105; Resp 22 S; Pulse Ox 87% on R/A; ca1 12:25 BP 111 / 53; Pulse 95; Resp 20; Pulse Ox 97% on 2 lpm NC; ca1 12:57 Temp 100.6(O); ca1 13:00 BP 117 / 57; Pulse 91; Resp 18 S; Pulse Ox 97% on 2 lpm NC; ca1 14:19 BP 83 / 42; Pulse 77; Resp 16 S; Pulse Ox 96% on 2 lpm NC; ca1 14:31 Temp 99.3(O); ca1 14:57 BP 94 / 61; Pulse 81; Resp 16 S; Pulse Ox 99% on 2 lpm NC; ca1 15:11 BP 97 / 46; Pulse 97; Resp 18 S; Pulse Ox 98% on 2 lpm NC; ca1 16:00 BP 115 / 63; Pulse 91; Resp 16 S; Pulse Ox 95% on R/A; ca1 17:00 BP 107 / 61; Pulse 85; Resp 19; Pulse Ox 92% on R/A; ca1 18:17 BP 108 / 52; Pulse 82; Resp 19 S; Pulse Ox 95% on R/A; ca1 19:43 BP 105 / 50; Pulse 83; Resp 19; Temp 98.2; Pulse Ox 95% on 2 lpm NC; ll1 11:05 Body Mass Index 29.26 (72.57 kg, 157.48 cm) ll1 11:07 O2 sat 92-95% in triage ll1 12:20 O2 sat at 87% after ambulation from lobby to room. Placed pt on O2 via NC at 2LPM, O2 ca1 sat increased to 97% ED Course: 10:56 Patient arrived in ED. ds1 11:04 Arm band placed on. ll1 11:07 Triage completed. ll1 11:29 Chest Pa And Lat (2 Views) In Process Unspecified. EDMS 12:22 Rosanna Chowdary RN is Primary Nurse. ca1 12:23 Nia Connell FNP-C [facility]. kb 12:23 Paul Mcmullen MD is Attending Physician. kb 12:26 Patient has correct armband on for positive identification. Placed in gown. Bed in low ca1 position. Call light in reach. Side rails up X2. Pulse ox on. NIBP on. 12:40 First set of blood cultures drawn by ne. Inserted saline lock: 20 gauge in left jp3 antecubital area, using aseptic technique. Blood collected. 12:48 Initial lab(s) drawn, by ne, sent to lab. Second set of blood cultures drawn by ne, [facility] COVID swab sent to lab. Flu and/or RSV swab sent to lab. 12:50 EKG done, by ED staff, reviewed by Paul Mcmullen MD. mh5 12:50 Oxygen administration via nasal cannula \T\ 2L/min. jp3 12:51 Warm blanket given. secured entrance monitor on. Pulse ox on. NIBP on. mh5 14:27 Notified Nurse Practitioner and/or Physician Miscellaneous Machine Operator of vital signs. ca1 15:20 Mason Gill MD is Hospitalizing Provider. kb 19:11 Report given to RIO Kasper. ca1 19:40 Notified Nurse Practitioner and/or Physician Miscellaneous Machine Operator of a critical lab result(s), ll1 Creatinine 6.01. 19:48 No provider procedures requiring assistance completed. Patient admitted, IV remains in ll1 place. Administered Medications: 13:00 Drug: Tylenol 1000 mg Route: PO; ca1 14:30 Follow up: Response: No adverse reaction; Temperature is decreased ca1 13:03 Drug: SOLU-Medrol (methylPrednisoLONE) 125 mg Route: IVP; Site: left antecubital; ca1 14:28 Follow up: Response: No adverse reaction ca1 13:06 Drug: Rocephin (cefTRIAXone) 1 grams Route: IV; Rate: calculated rate; Site: left ca1 antecubital; 14:27 Follow up: Response: No adverse reaction; IV Status: Completed infusion ca1 13:17 Drug: Zithromax (azithromycin) 500 mg Route: IVPB; Infused Over: 1 hrs; Site: left ca1 antecubital; 14:27 Follow up: Response: No adverse reaction; IV Status: Completed infusion; IV Intake: ca1 250ml 14:31 Drug: NS 0.9% 500 ml Route: IV; Rate: bolus; Site: left antecubital; ca1 15:26 Follow up: Response: No adverse reaction; IV Status: Completed infusion; IV Intake: ca1 500ml Intake: 14:27 IV: 250ml; Total: 250ml. ca1 15:26 IV: 500ml; Total: 750ml. ca1 Outcome: 15:20 Decision to Hospitalize by Provider. kb 20:23 Admitted to Med/surg accompanied by sherry, room 410, with chart, Report called to ll1 Radha Magana RN on 4th floor. 20:23 Condition: stable 20:56 Patient left the ED. [facility] Signatures: Dispatcher [employer] EDMS Nia Connell, MERCHANDISE COORDINATOR-C MERCHANDISE COORDINATOR-CkFatoumata Castle Maria mh5 Javier Crisostomo jp3 Rosanna Chowdary RN RN ca1 Ros Beal RN RN ll1 Corrections: (The following items were deleted from the chart) 12:52 12:26 Resp 22bpm; Spontaneous; Pulse Ox 87% RA; O2 sat at 87% after ambulation from [facility] lobby to room. Placed pt on O2 via NC at 2LPM, O2 sat increased to 97%; ca1 14:24 14:23 BP 83 / 42; Pulse 77bpm; Resp 16bpm; Spontaneous; Pulse Ox 96% RA; ca1 ca1 16:12 14:57 BP 94 / 61; Pulse 81bpm; Resp 16bpm; Spontaneous; Pulse Ox 99% RA; ca1 ca1 16:12 15:11 BP 97 / 46; Pulse 97bpm; Resp 18bpm; Spontaneous; Pulse Ox 98% RA; ca1 ca1 19:47 19:43 BP 105 / 50; Pulse 83bpm; Resp 19bpm; Pulse Ox 95% RA; ll1 ll1
--- NOTE | 2020-10-22 16:28 | P.HP ---
Certification for Inpatient With expected LOS: >2 Midnights Patient will require the following post-hospital care: None Practitioner: I am a practitioner with admitting privileges, knowledge of patient current condition, hospital course, and medical plan of care. Services: Services provided to patient in accordance with Admission requirements found in Title 42 Section 412.3 of the Code of Federal Regulations Patient History Date of Service: 10/22/20 Reason for admission: cough , SOB History of Present Illness: 75-year-old male with past medical history of prostate cancer s/p prostatectomy, currently in remission, history of hypertension, GERD, CKD stage III follows with Nephrology admitted now because of progressive shortness of breath, fever,chills and cough since the last 3 days. Patient states son also have similar symptoms although patient is a very poor historian. On admission he was noted in the ED to have exertional SOB with hypoxia with O2 sat from 93% on room air to 87% post ambulation. His chest x-ray shows left base pneumonia superimposed on interstitial infiltrate. His covid 19 screen is positive. He has been admitted for left acquired pneumonia superimposed covid pneumonia. Allergies No Known Allergies Allergy (Verified 07/29/20 11:00) Home medications list reviewed: Yes Home Medications: Tamsulosin HCl [Flomax] 0.4 mg PO DAILY 10/15/15 Furosemide [Lasix] 80 mg PO DAILY 10/25/18 allopurinoL [Zyloprim*] 100 mg PO DAILY 05/15/19 Aspirin 81 mg PO DAILY 08/08/19 Sodium Zirconium Cyclosilicate [Lokelma] 10 gm PO DAILY #15 powd.pack 01/18/20 - Past Medical/Surgical History Diabetic: No -: Hypertension -: Ribs, skull fx from fall in 2010 -: Gout -: Prostate cancer -: dialysis -: autoimmune kidney -: Chronic kidney disease -: Cholecystectomy -: R hip sx with pins -: prostate radiation Psychosocial/ Personal History: Patient lives at home with his . - Family History Mother -: Heart disease, Diabetes Brother -: Hypertension, Diabetes Sister -: Hypertension, Cancer - Social History Alcohol use: No CD- Drugs: No Caffeine use: Yes Place of Residence: Home Physical Examination - Physical Exam General: Alert, In no apparent distress, Oriented x3 HEENT: Atraumatic, Normocephalic, PERRLA Neck: Supple, 2+ carotid pulse no bruit Respiratory: Diminished Cardiovascular: No edema, Normal pulses, Regular rate/rhythm, Normal S1 S2 Gastrointestinal: Normal bowel sounds, Soft and benign, Non-distended, No ascites Musculoskeletal: No clubbing, No swelling Integumentary: No rashes, No breakdown Neurological: Normal speech, Normal strength at 5/5 x4 extr - Studies Laboratory Data (last 24 hrs) 10/22/20 12:45: WBC 8.10, Hgb 9.8 L, Hct 31.4 L, Plt Count 209 Imagings Data: TECHNIQUE: Frontal and lateral views of the chest were obtained. FINDINGS: The lungs are fibrotic as a baseline. Interstitial and alveolar opacities are increased in the lower left lung field compared to the August study. Early left lung base pneumonia is suspected. No significant failure or volume overload. Cardiac silhouette is enlarged but stable. Pericardial fat pads are present. No abnormal vascular engorgement. Trachea is midline. No pleural effusion or pneumothorax seen. Extensive old rib trauma noted on the right. Osteopenic and degenerative spine changes are present. Ankylosing spondylitis changes are evident in the spine as well. No aortic abnormality. IMPRESSION: Suspected mild or early left lung base pneumonia superimposed on chronic interstitial lung disease. Additional nonacute findings are similar to prior imaging. Assessment and Plan - Plan Covid 19 pneumonia Presumed left base community-acquired pneumonia Borderline hypotension rule out sepsis Chronic kidney disease stage 4. History of hypertension Plan -will admit patient to inpatient status -Do O2 with slow weaning -dose zinc sulfate/ivermectin/Decadron for covid pneumonia -start empirical Rocephin Subcutaneous Lovenox for DVT prophylaxis start PPI and regular diet Advanced directive patient wants to be full code for now -Obtain full home meds list Discharge Plan: Home - Advance Directives Does patient have a Living Will: Yes Does patient have a Durable POA for Healthcare: No - Code Status/Comfort Care Code Status: Full Code Physician Review: Patient Assessed, Agree with Above Assessment and Plan Time Spent Managing Pts Care (In Minutes): 65
[2020-10-22] MEDS ORDERED: ALBUTEROL 2.5 MG/3 ML NEB SOL NEB PRN (16:30)
[2020-10-22] MEDS ORDERED: MORPHINE 2 MG/ML SYR IV PRN (16:30)
[2020-10-22] MEDS ORDERED: HYDRALAZINE HCL 20 MG/ML VIAL IV PRN (16:33)
[2020-10-22 19:07] LABS: Potassium 4.2 mmol/L (3.5-5.1)
[2020-10-22] MEDS: IPRATROPIUM BROM 0.5MG/2.5ML NEB SCH (21:00)
[2020-10-22] MEDS: ENOXAPARIN 40 MG/0.4 ML SQ SCH (22:44)
[2020-10-22] MEDS: FAMOTIDINE 20 MG TAB PO SCH (22:45)
[2020-10-22] MEDS: IVERMECTIN 3 MG TABLET PO SCH (22:45)
[2020-10-22] MEDS: dexAMETHasone 4 MG TAB PO SCH (22:45)
[2020-10-22] MEDS: GUAIFENESIN 600 MG SA TAB PO SCH (22:45)
[2020-10-23] MEDS: IPRATROPIUM BROM 0.5MG/2.5ML NEB SCH ×3 (01:45→14:00)
[2020-10-23 03:57] LABS: Absolute Lymphocytes (CBC) 0.1 K/uL (0.7-4.9); Basophils % 0.1 % (0-1.3); Hematocrit 28.5 % (39.6-49.0); Lymphocytes % 1.4 % (15.3-44.8); MPV 9.1 fL (7.6-11.3); RBC Red Blood Cell Count 3.25 M/uL (4.33-5.43)
[2020-10-23 04:20] LABS: Bilirubin Total 0.2 mg/dL (0.2-1.0); Potassium 4.8 mmol/L (3.5-5.1); Protein, Total 6.1 g/dL (6.4-8.2)
[2020-10-23] MEDS ORDERED: PNEUMOCOCCAL VACCINE 0.5 ML IMVAC ONE (08:00)
[2020-10-23] MEDS ORDERED: HOME MED 1 EA UNK (Furosemide [Lasix] 80 MG Tablet) PO SCH (09:00)
[2020-10-23] MEDS ORDERED: FUROSEMIDE 40 MG TABLET PO SCH (09:00)
[2020-10-23] MEDS: SODIUM ZIRCONIUM CYCLOSILICATE PO SCH (09:00)
[2020-10-23] MEDS ORDERED: ASPIRIN 81 MG CHEWABLE TABLET PO SCH (09:00)
[2020-10-23] MEDS: allopurinoL 100 MG TAB PO SCH (09:10)
[2020-10-23] MEDS: dexAMETHasone 4 MG TAB PO SCH ×2 (09:10→20:38)
[2020-10-23] MEDS: GUAIFENESIN 600 MG SA TAB PO SCH ×2 (09:10→20:38)
[2020-10-23] MEDS: ENOXAPARIN 40 MG/0.4 ML SQ SCH (09:10)
[2020-10-23] MEDS: TAMSULOSIN 0.4 MG SR CAP PO SCH (09:10)
[2020-10-23] MEDS: FAMOTIDINE 20 MG TAB PO SCH ×2 (10:27→20:38)
[2020-10-23] MEDS ORDERED: VANCOMYCIN/NS 1 gm 1 GM/250 ML BAG IV SCH (12:45)
[2020-10-23] MEDS ORDERED: VANCOMYCIN/NS 1 gm 1 GM/250 ML BAG IV ONE (12:45)
[2020-10-23] MEDS ORDERED: CEFAZOLIN/SWI 1gm 1 GM/10 ML SYR IV SCH (13:00)
[2020-10-23] MEDS ORDERED: CALCIUM CARBONATE CHEW 500MG TAB PO PRN (13:08)
--- NOTE | 2020-10-23 14:46 | P.CNS ---
Date of Consult: 10/23/20 Reason for Consult: Cartagena virus pneumonia acute renal failure Chief Complaint: cough , SOB History of Present Illness: Patient is 75 years of age admitted with shortness of breath diagnosis cartagena virus pneumonia also had a prostatectomy in remission history of hypertension and chronic renal disease his renal function is much worse chest x-ray shows bilateral pneumonia barber appears to be very comfortable admitted with some weakness patient is on Lasix at home Allergies No Known Allergies Allergy (Verified 10/23/20 05:21) Home Medications: Tamsulosin HCl [Flomax] 0.4 mg PO DAILY 10/15/15 Furosemide [Lasix] 80 mg PO DAILY 10/25/18 allopurinoL [Zyloprim*] 100 mg PO DAILY 05/15/19 Aspirin 81 mg PO DAILY 08/08/19 Sodium Zirconium Cyclosilicate [Lokelma] 10 gm PO DAILY #15 powd.pack 01/18/20 - Past Medical/Surgical History Diabetic: No -: Hypertension -: Ribs, skull fx from fall in 2010 -: Gout -: Prostate cancer -: dialysis -: autoimmune kidney -: Chronic kidney disease -: Cholecystectomy -: R hip sx with pins -: prostate radiation Psychosocial/ Personal History: Patient lives at home with his . - Family History Mother Medical History: Heart disease, Diabetes Brother Medical History: Hypertension, Diabetes Sister Medical History: Hypertension, Cancer - Social History Alcohol use: No CD- Drugs: No Caffeine use: Yes Place of Residence: Home Review of Systems General: Weakness Respiratory: Shortness of Breath Physical Examination Temp Pulse Resp BP Pulse Ox 96.5 F L 62 20 90/60 95 10/23/20 12:00 10/23/20 12:00 10/23/20 12:00 10/23/20 13:07 10/23/20 12:00 General: Alert, In no apparent distress, Oriented x3 Respiratory: Crackles/rales Cardiovascular: No edema, Regular rate/rhythm, Normal S1 S2 Gastrointestinal: Normal bowel sounds, Soft and benign Laboratory Data (last 24 hrs) 10/22/20 12:45: Sodium 140, Potassium 4.2, BUN 96 H, Creatinine 6.01 H*, Glucose 102 - Problems (1) Pneumonia due to coronavirus disease 2019 Current Visit: Yes Status: Acute Plan: Patient is 75 years of age admitted with cartagena virus pneumonia is hypoxic some retrocardiac infiltrate oxygenation satisfactory patient is in acute on chronic renal failure 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
[2020-10-23] MEDS ORDERED: NACHLORIDE 0.45% 1,000 ML IV SCH (15:00)
[2020-10-23] MEDS: Meropenem 500 MG/100 ML BAG IV SCH ×2 (15:07→20:39)
--- NOTE | 2020-10-23 15:26 | CON ---
Date of Consultation: 10/23/2020 Reason For Consultation: Elevated BUN and creatinine, fluid management. 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 The global glomerulosclerosis was 6/ on previous biopsy. The patient had ANCA negative proliferative GN at that time. The patient required to be started on Cytoxan and started on dialysis. The patient after that weaned from dialysis and placed to continue on the CellCept that weaned back in 2018. The patient again had another episode of acute kidney injury secondary to cardiorenal back in March 2019. At that time, the patient resumed dialysis, then weaned again from dialysis in April. According to the last seen the patient in the office, the patient was doing well. His creatinine was 2.7. The patient was maintained on the CellCept. According to the patient, the patient over the weekend started having some shortness of breath and cough. The patient had contact with COVID persons at home. His shortness of breath went worse. For that reason, he called the office. We directed the patient to go to the hospital. Primary workup in the hospital showed positive COVID with elevation in BUN and creatinine, and pneumonia on the CT. For that reason, the patient was admitted. The patient denied any hematuria. No fever, but he has some chills, has hypoxemia. Over the night, the patient was started on IV antibiotic. Past Medical History: Includes; 1. 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 Last dialysis was back in April 2019. 2. Hypertension. 3. Hyperlipidemia. 4. Prostate cancer, status post chemo and radiation therapy. 5. Obstructive sleep apnea. 6. Congestive heart failure. Family History: Positive for hypertension. Allergies: NO KNOWN DRUG ALLERGIES. Home Medications: Include Flomax, Lasix, allopurinol, aspirin, CellCept. Past Surgical History: Includes; 1. Kidney biopsy. 2. Prostate surgery. 3. Rib surgery. 4. PermCath placement and removal. 5. Cholecystectomy. 6. Hip surgery. Social History: Denied smoking. Denied alcohol. Denied drugs abuse. Review of Systems: Head and Neck: No red eye. No ear pain. GI: No nausea. No vomiting. : No polyuria. No dysuria. No hematuria. No foamy urine, Lactation Coordinator: Not applicable. Respiratory: Has shortness of breath. Has cough. Has sputum. Cardiovascular: Has chest tightness. Endocrine: No polydipsia. Skin: No rash. Physical Examination: General: When I saw the patient; the patient lying in bed, short-winded. Vital Signs: Blood pressure marginal 95/50, pulse of 72, afebrile. The patient had urine output of voiding, not measured. Chest: Crackles bilateral. Heart: S1, S2. Systolic murmur. Abdomen: Soft, nontender. Extremity: No edema. Neurologic: Alert. No focality. Laboratory Data: WBC 7.6, H and H 8.9/28.5, platelets 119. Sodium 138, potassium 4.8, bicarb 16, chloride 110, BUN 102, creatinine 6.2, calcium 6.6, albumin of 2. Corrected calcium is 8.4. Current Medications: The patient on are; 1. Ivermectin. 2. Azithromycin. 3. Lovenox. 4. Lasix. 5. Dexamethasone 4 mg b.i.d. 6. Breathing treatment. 7. Allopurinol. Assessment And Plan: Acute kidney injury on chronic kidney disease. Our differential diagnosis: 1. COVID nephropathy. 2. Cardiorenal. 3. Pulmonary renal given the history of diffuse proliferative GN. 4. Toxic ATN secondary to low blood pressure, poor perfusion, ATN. Plan: 1. I am going to hold all blood pressure medications. Looked to me the respiratory status more because of the pneumonia more than CHF exacerbation, so I am going to hold on the diuresis for the time being. 2. Unfortunately, the patient received aspirin already. Had been on aspirin as outpatient. I am not going to be able to proceed with the biopsy on current time. I going to discontinue the aspirin. We will plan for the biopsy next week after 7 days holding the aspirin. 3. I am going to hold the immunosuppressive medication given the active pneumonia on the patient and the marginal low blood pressure and I do not have any definitive diagnosis of activity of the disease. I am going to go ahead and repeat urinalysis to evaluate if there is any hematuria or active urine sediment to decide more on the immunosuppressive medication, but for the time being, I am going to hold the CellCept and hold on any immunosuppressive medication. 4. The patient had severe elevation in the BUN with his condition and marginal kidney function and previous history. I had long discussion with the patient regarding his disease and need for the kidney biopsy and the dialysis. The patient on agreement. I am going to go ahead and proceed with a tunneled hemodialysis catheter and we will arrange for dialysis tomorrow. 5. I am going to go ahead and send for full serology and renal ultrasound. 6. Non-anion gap metabolic acidosis, possible secondary to renal failure. I do not see the need for IV bicarb. We will start the patient on oral bicarb. Going to be corrected with dialysis tomorrow. 7. Hypocalcemia. Corrected calcium is on acceptable range. We will start the patient on oral calcium carbonate. We will send for PTH and vitamin D. 8. Anemia of chronic kidney disease. I am going to go ahead and send for anemia workup. 9. Pneumonia on immunocompromised patient. We will start the patient on vancomycin and Zosyn. We will consult Pulmonary and ID. 10. COVID pneumonia. We will follow up with Pulmonary. Time spent discussing the case with the hospitalist, discussing the case with the patient, [id number], placing order, discussing the case with other subspecialists including ID and Pulmonary 75 minutes. time spend exam the patient face to face , discussing with patient , reviewing la and radiology date, placing order , discussing the case with staff and with other team consultan and hospitalist 65 min. MISSAEL Voice ID: [id number] Report ID: [id number] KRISTEL
--- NOTE | 2020-10-23 15:30 | RAD REPORT ---
EXAM DESCRIPTION: US - Renal Ultrasound-Complete - 10/23/2020 1:53 pm CLINICAL HISTORY: Acute renal insufficiency COMPARISON: 2019 FINDINGS: The right kidney measures 12 cm with an increased echotexture. The left kidney measures 11 cm with an increased echotexture. Small bilateral renal cysts. Hydronephrosis is not seen. The bladder is decompressed poorly evaluated IMPRESSION: Increased renal echotexture consistent with parenchymal disease
--- NOTE | 2020-10-23 16:27 | P.PN ---
Subjective Date of Service: 10/23/20 Chief Complaint: cough , SOB Subjective: Improving (feels better this morning - breathing more comfortably, creatinine remains high, still on O2) Review of Systems 10-point ROS is otherwise unremarkable Physical Examination - Vital Signs Temperature: 96.5 F Blood Pressure: 90/60 Pulse: 62 Respirations: 20 Pulse Ox (%): 95 - Studies Laboratory Data (last 24 hrs) 10/22/20 12:45: Sodium 140, Potassium 4.2, BUN 96 H, Creatinine 6.01 H*, Glucose 102 Assessment & Plan Physician Review: Patient Assessed, Agree with Above Assessment and Plan Physician Review Additional Text: Physical Exam General: Alert, In no apparent distress, Oriented x3 HEENT: Atraumatic, Normocephalic, PERRLA Respiratory: Diminished bilaterally, mild crackles at L base Cardiovascular: No edema, Normal pulses, Regular rate/rhythm, Normal S1 S2 Gastrointestinal: Normal bowel sounds, Soft and benign, Non-distended Ext: no edema, no rash Neurological: Normal speech, Normal strength at 5/5 x4 extr Problem List acute hypoxemic respiratory failure secondary to Covid 19 pneumonia Presumed left base community-acquired pneumonia Hypotension Chronic kidney disease stage 4 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, previously on dialysis in 2019 History of hypertension -continue steroids, vitamin supplementation, protocol for COVID pneumonia -wean O2 as tolerated -patient with worsened renal function, nephrology consulted, plan for dialysis and further evaluation - ATN vs worsening of his known glomerulonephritis vs COVID/sepsis, ?prerenal -patient on cellcept and immunocompromised, antibiotics broadened to merrem and vanc after discussion with nephrology. -aspirin discontinued by nephrology - plan for biopsy on Tuesday -pulmonology consulted -continue home meds - hold antihypertensives as patient is hypotensive Dispo: anticipate hospitalization> 2days, likely dc home Time Spent Managing Pts Care (In Minutes): 35
[2020-10-23 18:50] LABS: Urine Appearance CLOUDY (Clear); Urine Bilirubin NEGATIVE (Negative); Urine Blood 1+ (Negative); Urine Color YELLOW (Yellow); Urine Glucose NEGATIVE (Negative); Urine Protein 3+ (Negative); Urine Urobilinogen 0.2 mg/dL (0.2-1.0)
[2020-10-23 18:52] LABS: Urine Microscopic Reflex ORDER UMIC
[2020-10-23 19:06] LABS: Urine Protein/Creatinine Ratio 1.08 ratio (<0.15)
[2020-10-23 19:09] LABS: Urine Amorphous Sediment 3+ /HPF (NONE SEEN); Urine Bacteria <20 /HPF (NONE SEEN); Urine Coarse Granular Casts 0-5 /LPF (NONE SEEN); Urine Mucus 1+ /HPF (NONE SEEN)
[2020-10-23] MEDS ORDERED: Meropenem 500 MG VIAL IV SCH (21:00)
[2020-10-24 04:06] LABS: Absolute Lymphocytes (CBC) 0.2 K/uL (0.7-4.9); Basophils % 0.1 % (0-1.3); MPV 8.9 fL (7.6-11.3); RBC Red Blood Cell Count 3.22 M/uL (4.33-5.43)
[2020-10-24 06:26] LABS: ALT/SGPT 20 U/L (12-78); AST/SGOT 27 U/L (15-37); Albumin 2.1 g/dL (3.4-5.0); Alkaline Phosphatase 63 U/L (45-117); BUN Blood Urea Nitrogen 118 mg/dL (7-18); Bilirubin Total 0.3 mg/dL (0.2-1.0); Creatine Phosphokinase 259 U/L (39-308); Ferritin 293.3 ng/mL (26-388); Glucose Level 141 mg/dL (74-106); Magnesium 2.1 mg/dL (1.8-2.4); Phosphorus 8.1 mg/dL (2.5-4.9); Potassium 4.9 mmol/L (3.5-5.1); Protein, Total 6.1 g/dL (6.4-8.2); Sodium Level 137 mmol/L (136-145); Thyroid Stimulating Hormone 0.908 uIU/mL (0.360-3.740); Uric Acid 10.1 mg/dL (3.5-7.2)
[2020-10-24 06:29] LABS: Bicarbonate 11 mmol/L (21-32)
[2020-10-24 07:52] LABS: Folic Acid, (Folate) > 20.0 ng/mL (3.1-17.5); Transferrin 130 mg/dL (200-360)
--- NOTE | 2020-10-24 08:17 | P.PN ---
Subjective Date of Service: 10/25/20 Chief Complaint: cough , SOB Subjective: No new changes Physical Examination - Vital Signs Temperature: 97.6 F Blood Pressure: 92/50 Pulse: 82 Respirations: 17 Pulse Ox (%): 94 - Physical Exam General: Other (Appears as his stated age) HEENT: Atraumatic, Normocephalic Neck: Supple Respiratory: Normal air movement Cardiovascular: No rubs, No murmurs Gastrointestinal: Soft and benign, Non-distended Neurological: Other (+lethargy) Assessment And Plan - Plan # SCAR ? 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; was on dialysis; now on MMF Last HD received in April 2020 Current SCAR DDx: prerenal/ATN, PIGN flare, CRS1 Renal US unremarkable F/u serologies for GN Hold ASA Plan for renal bx 1 wk after asa held HD initiation to start today - HD for Tue, Sat, Mon Give IV mannitol w/ HD today HD access: permcath # PIGN MMF on hold d/t PNA KBx next wk # BPH Hx of prostate Ca s/p radiotx Cont flomax # Hypotension suspect from autonomic neuropathy aggravated by sepsis Hx of Htn TSH& serum B12 wnl F/u trop, BNP, TTE Start midodrine 5 mg po tid Epogen to help inc BP # COVID PNA Mngt per other services # Anemia Tsat low at 13% - defer IV iron therapy d/t acute infection B12 & folate not low TSH wnl Start epogen tomorrow after HD # Acidosis HD start today # Hypocalcemia Correction via HD & Ca supplement, &calcitriol Check 25OHD # HyperPO4 On Ca binder Start HD today # Secondary hyperPTH Start calcitriol F/u 25OHD Physician Review: Patient Assessed, Agree with Above Assessment and Plan
[2020-10-24 08:44] LABS: Rheumatoid Factor NEG (NEG)
[2020-10-24] MEDS ORDERED: CEFAZOLIN/SWI 1gm 1 GM/10 ML SYR ONE (08:57)
[2020-10-24] MEDS ORDERED: NA CHLORIDE 0.9% 500 ML ONE (08:57)
[2020-10-24] MEDS: TAMSULOSIN 0.4 MG SR CAP PO SCH (09:00)
[2020-10-24] MEDS ORDERED: MANNITOL 25% 12.5 GM/50 ML VIAL IV ONE (09:00)
[2020-10-24] MEDS: dexAMETHasone 4 MG TAB PO SCH ×2 (09:00→20:13)
[2020-10-24] MEDS: GUAIFENESIN 600 MG SA TAB PO SCH ×2 (09:00→20:13)
[2020-10-24] MEDS: allopurinoL 100 MG TAB PO SCH (09:00)
[2020-10-24] MEDS: Meropenem 500 MG/100 ML BAG IV SCH ×2 (09:00→20:13)
[2020-10-24] MEDS: FAMOTIDINE 20 MG TAB PO SCH ×2 (09:00→20:12)
[2020-10-24] MEDS: SODIUM ZIRCONIUM CYCLOSILICATE PO SCH (09:00)
[2020-10-24] MEDS ORDERED: NS 0.9% VIAL 10 ML ONE ×3 (09:08→10:58)
[2020-10-24] MEDS ORDERED: NA CHLORIDE 0.9% 100 ML IV ONE (09:09)
[2020-10-24] MEDS ORDERED: propofoL 200 MG/20 ML VIAL IV ONE (09:17)
[2020-10-24] MEDS ORDERED: FENTANYL CITR 100 MCG/2 ML ONE (09:17)
[2020-10-24] MEDS ORDERED: LIDOCAINE 1% MPF 5 ML VIAL ONE (09:17)
[2020-10-24] MEDS: LIDOCAINE 1% 20 ML MDV ONE ×2 (09:53→09:57)
[2020-10-24] MEDS: HEPARIN 5000 UNIT/ML 1 ML VIAL ONE ×4 (09:58→10:15)
--- NOTE | 2020-10-24 10:29 | P.OP ---
[employer]: NONE,NONE Preoperative diagnosis: ARF Postoperative diagnosis: same Primary procedure: Attempted RIJ Tesio, Insertion Right Subclavian Tesio Secondary procedure: Fluoroscopy Anesthesia: General Estimated blood loss: min Specimen: none Findings: as above Complications: None Transferred to: Recovery Room Condition: Good
[2020-10-24] MEDS ORDERED: Phenylephrine HCl 10 MG/ML 1 ML VIAL ONE (10:58)
[2020-10-24] MEDS ORDERED: EPHEDRINE SULF 50 MG/ML VIAL ONE (10:58)
--- NOTE | 2020-10-24 11:22 | RAD REPORT ---
EXAM DESCRIPTION: RAD - Chest Single View - 10/24/2020 11:09 am CLINICAL HISTORY: S/P Tesio Chest pain. COMPARISON: Chest Pa And Lat (2 Views) dated 10/22/2020; Chest Single View dated 08/13/2020; Chest Sing le View dated 04/03/2020; Chest Single View dated 03/03/2020 FINDINGS: Portable technique limits examination quality. Tip of the right-sided venous catheter is in the SVC. No postprocedure pneumothorax seen.
--- NOTE | 2020-10-24 12:04 | P.CNS ---
Date of Consult: 10/24/20 Chief Complaint: cough , SOB History of Present Illness: The patient is a 75-year-old male with a past medical history of prostate cancer status post prostatectomy currently in remission, hypertension, and GERD, hyperlipidemia, chronic kidney disease secondary to diffuse proliferative glomerular nephritis with immune complex, and COVID 19 pneumonia who presented to the emergency department with shortness of breath, fevers, chills and a cough for the past 3 days. Chest x-ray showed left base pneumonia and patient is also positive for COVID 19. The patient is currently taking by cytoxan for his glomerular nephritis and as such is in a chronic immunocompromised state. Ameena chakraborty has been started on a empiric meropenem and vancomycin. Patient also taking dexamethasone 4 mg b.i.d. as well as ivernectin for COVID 19. patient currently requiring 2 L of oxygen via nasal cannula. Right hemodialysis catheter placed today in for emergent hemodialysis as patent has severely elevated creatinine. Patient seen today in postop and denies any acute complaints, shortness of breath. Allergies No Known Allergies Allergy (Verified 10/23/20 05:21) Home Medications: Tamsulosin HCl [Flomax] 0.4 mg PO DAILY 10/15/15 Furosemide [Lasix] 80 mg PO DAILY 10/25/18 allopurinoL [Zyloprim*] 100 mg PO DAILY 05/15/19 Aspirin 81 mg PO DAILY 08/08/19 Sodium Zirconium Cyclosilicate [Lokelma] 10 gm PO DAILY #15 powd.pack 01/18/20 - Past Medical/Surgical History Diabetic: No -: Hypertension -: Ribs, skull fx from fall in 2010 -: Gout -: Prostate cancer -: dialysis -: autoimmune kidney -: Chronic kidney disease -: Cholecystectomy -: R hip sx with pins -: prostate radiation Psychosocial/ Personal History: Patient lives at home with his . - Family History Mother Medical History: Heart disease, Diabetes Brother Medical History: Hypertension, Diabetes Sister Medical History: Hypertension, Cancer - Social History Alcohol use: No CD- Drugs: No Caffeine use: Yes Place of Residence: Home Review of Systems 10-point ROS is otherwise unremarkable Physical Examination Temp Pulse Resp BP Pulse Ox 96.8 F 96 H 20 103/46 L 94 10/24/20 11:30 10/24/20 11:30 10/24/20 11:30 10/24/20 11:30 10/24/20 08:17 General: Alert, In no apparent distress HEENT: Atraumatic, Normocephalic Neck: Supple Respiratory: Crackles/rales Cardiovascular: No edema, Regular rate/rhythm Gastrointestinal: Normal bowel sounds, Soft and benign Laboratory Last Values WBC 8.10 K/uL (4.3-10.9) 10/22/20 12:45 RBC 3.60 M/uL (4.33-5.43) L 10/22/20 12:45 Hgb 9.8 g/dL (13.6-17.9) L 10/22/20 12:45 Hct 31.4 % (39.6-49.0) L 10/22/20 12:45 MCV 87.4 fL (80-100) D 10/22/20 12:45 MCH 27.1 pg (27.0-35.0) 10/22/20 12:45 MCHC 31.0 g/dL (32.0-36.0) L 10/22/20 12:45 RDW 15.5 % (12.1-15.2) H 10/22/20 12:45 Plt Count 209 K/uL (152-406) 10/22/20 12:45 MPV 8.9 fL (7.6-11.3) 10/22/20 12:45 Neutrophils % 89.2 % (41.7-73.7) H 10/22/20 12:45 Lymphocytes % 3.5 % (15.3-44.8) L 10/22/20 12:45 Monocytes % 7.0 % (3.3-12.3) 10/22/20 12:45 Eosinophils % 0.0 % (0-4.4) 10/22/20 12:45 Basophils % 0.3 % (0-1.3) 10/22/20 12:45 Absolute Neutrophils 7.3 K/uL (1.8-8.0) 10/22/20 12:45 Absolute Lymphocytes 0.3 K/uL (0.7-4.9) L 10/22/20 12:45 Absolute Monocytes 0.6 K/uL (0.1-1.3) 10/22/20 12:45 Absolute Eosinophils 0.0 K/uL (0-0.5) 10/22/20 12:45 Absolute Basophils 0.0 K/uL (0-0.5) 10/22/20 12:45 Platelet Estimate Adeq 10/22/20 12:45 Morphology Comment Not seen (NOT SEEN) 10/22/20 12:45 Sodium 140 mmol/L (136-145) 10/22/20 12:45 Potassium 4.2 mmol/L (3.5-5.1) 10/22/20 12:45 Chloride 108 mmol/L (98-107) H 10/22/20 12:45 Carbon Dioxide 15 mmol/L (21-32) L 10/22/20 12:45 BUN 96 mg/dL (7-18) H 10/22/20 12:45 Creatinine 6.01 mg/dL (0.55-1.3) H* 10/22/20 12:45 Estimated GFR 9 mL/min (=/>90) L 10/22/20 12:45 Glucose 102 mg/dL (74-106) 10/22/20 12:45 Lactic Acid 1.0 mmol/L (0.4-2.0) 10/22/20 12:48 Calcium 7.0 mg/dL (8.5-10.1) L 10/22/20 12:45 Procalcitonin 0.39 ng/mL (<0.050) H 10/22/20 12:45 Influenza Type A RNA Negative (NEGATIVE) 10/22/20 12:38 Influenza Type B RNA Negative (NEGATIVE) 10/22/20 12:38 SARS-CoV-2 RNA (RT-PCR) Positive (NEGATIVE) A 10/22/20 12:38 Smear Scan Ok (OK) 10/22/20 12:45 Temp Pulse Resp BP Pulse Ox 96.8 F 96 H 20 103/46 L 94 10/24/20 11:30 10/24/20 11:30 10/24/20 11:30 10/24/20 11:30 10/24/20 08:17 Conclusions/Impression: Antibiotics: Meropenem start: 10/23 Stop: -- Vancomycin start: 10/23 Stop: -- Assessment: -COVID 19 pneumonia -diffuse proliferative glomerular nephritis with CKD -anemia Plan: -continue dexamethasone and ivermectin. Patient doing well, breathing comfortably on 2 L oxygen via nasal cannula. -patient's is immunocompromised due to history chemotherapy/immunosuppressive drug use due to glomerular nephritis. Continue to monitor closely for any signs or symptoms of infection. Patient was empirically started on meropenem and vancomycin. Can continue this treatment for now. Chest x-ray show pneumonia continue monitor closely. -medical management per primary team -continue monitor CBC and BMP -continue monitor for signs infection Plan of care discussed with Dr. Holland. Thank you for consultation.
--- NOTE | 2020-10-24 12:15 | RAD REPORT ---
EXAM DESCRIPTION: RAD - Fluoroscopy <1 Hour - 10/24/2020 12:09 pm CLINICAL HISTORY: Venous catheter insertion. HEMODIALYSIS CATH COMPARISON: Fluoroscopy <1 Hour dated 10/27/2018 FINDINGS: Fluoroscopic imaging is submitted from placement of a venous catheter. Details of the pro cedure not available. Fluoroscopy time: 0.4 minutes
--- NOTE | 2020-10-24 13:26 | PREOPCON ---
Date of Consultation: 10/23/2020 Reason For Consultation: The patient needs dialysis. History Of Present Illness: The patient is a 75-year-old gentleman, who came in with COVID pneumonia and has elevated BUN and creatinine and needs dialysis. He had dialysis in the past, but he was wea natalie off for glomerulosclerosis and that did not require any further treatment after the initial treat ment of dialysis. Currently his BUN and creatinine are markedly elevated and fluid status is unbalan deb, therefore he requires urgent dialysis and I was asked to place a catheter. He is awake, alert, in no distress at this time. No sore throat, runny nose, cough, headaches, or dizziness. No chest p ain. No fever or chills. Review of Systems: Otherwise unremarkable. Past Medical History: Significant for prostate cancer, hypertension, hyperlipidemia, obstructive sle ep apnea, CHF. Past Surgical History: Significant for kidney biopsy, prostate surgery, rib surgery, Tesio catheter placement and removal in the past, cholecystectomy, and hip surgery. Allergies: NONE. Social History: The patient denies smoking or drinking alcohol. Family History: Significant for hypertension. Physical Examination: Vital Signs: Stable. His blood pressure is 92/50, he is afebrile. General: He is awake, alert, and oriented x3. Head and Neck: No masses. Chest: Clear. Heart: S1 and S2. Abdomen: Soft. Extremities: Neurovascularly intact. Neurologic: Nonfocal. Laboratory Data: H and H are 8.8 and 28, . Chemistry shows CO2 of 11, BUN of 118, creatin ine of 7.43. Assessment: Acute renal failure requiring dialysis. Recommendations: We will go and place a Tesio catheter. The patient understands risks, benefits, an d alternatives and agrees to procedure. /MODL Voice ID: [id number] Report ID: [id number]
[2020-10-24] MEDS: IVERMECTIN 3 MG TABLET PO SCH (17:09)
--- NOTE | 2020-10-24 17:19 | P.PN ---
Subjective Date of Service: 10/24/20 Chief Complaint: cough , SOB Subjective: No new changes (doing ok, denies n/v/d, breathing comfortably on 2L NC, scheduled for dialysis catheter today and dialysis this afternoon) Review of Systems 10-point ROS is otherwise unremarkable Physical Examination - Vital Signs Temperature: 96.1 F Blood Pressure: 90/48 Pulse: 96 Respirations: 20 Pulse Ox (%): 94 Assessment & Plan Physician Review Additional Text: Physical Exam General: Alert, In no apparent distress, Oriented x3 HEENT: Atraumatic, Normocephalic, PERRLA Respiratory: Diminished bilaterally, mild crackles at L base Cardiovascular: No edema, Regular rate/rhythm, Normal S1 S2 Gastrointestinal: Normal bowel sounds, Soft and benign, Non-distended Ext: no edema, no rash Neurological: Normal speech, Normal strength at 5/5 x4 extr Problem List acute hypoxemic respiratory failure secondary to Covid 19 pneumonia Presumed left base community-acquired pneumonia Hypotension Chronic kidney disease stage 4 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, previously on dialysis in 2019 History of hypertension -continue steroids, vitamin supplementation, protocol for COVID pneumonia -wean O2 as tolerated -patient with worsened renal function, nephrology consulted, plan for dialysis and further evaluation - ATN vs worsening of his known glomerulonephritis vs COVID/sepsis -patient on cellcept and immunocompromised, antibiotics broadened to merrem and vanc after discussion with nephrology on 10/23, ID consulted as well -aspirin discontinued by nephrology - plan for biopsy on Tuesday -pulmonology consulted -continue home meds - hold antihypertensives as patient is hypotensive -appears to have metabolic acidosis, ?RTA Dispo: anticipate hospitalization> 2days, likely dc home re-starting dialysis Time Spent Managing Pts Care (In Minutes): 35
--- NOTE | 2020-10-24 21:11 | OP ---
Date of Procedure: 10/24/2020 Surgeon: Dash Webster MD Windows Server Administrator: None. Preoperative Diagnosis: Acute renal failure. Postoperative Diagnosis: Acute renal failure. Procedure: Attempted right internal jugular Tesio catheter insertion and right subclavian Tesio cath eter, interpretation of intraoperative fluoroscopy. Estimated Blood Loss: Minimal. Specimen: None. Findings: As above. Anesthesia: General. Complication: None. Disposition: The patient tolerated the procedure in stable condition and taken to Recovery in good g eneral condition. Procedure In Detail: The patient was brought to the OR and placed in supine position. General anest hesia was begun. The patient was prepped and draped in usual sterile fashion. Lidocaine 1% was infi ltrated locally. An 18-gauge needle was used to access the right IJ vein but the guidewire could not safely be passed into the SVC, kept coiling in the neck. Patient had a prior insertion of a cathete r there and that may have been the reason why the anatomy was difficult. So at this point, as patien t is right-handed, I went through the right subclavian vein and the right subclavian vein was easily accessed with an 18-gauge needle. Guidewire was passed. Position was confirmed with fluoroscopy. C ounterincision was made. Tunneling device was used to tunnel the Tesio catheter between the 2 wounds and Seldinger technique used and Tesio catheter placed in the SVC, right atrial junction under fluor oscopy. Catheter was flushed with heparin and packed with heparin with good blood flow. Then 3-0 ch romic was used to approximate the subcutaneous tissue and close the skin and 3-0 nylon used to secure the tube to the chest wall. Sterile dressing was applied. Patient was awakened and taken to Rec[facility] ry in good general condition and chest x-ray has been ordered. /MODL Voice ID: [id number] Report ID: [id number]
[2020-10-25 04:13] LABS: Absolute Lymphocytes (CBC) 0.1 K/uL (0.7-4.9); Basophils % 0.1 % (0-1.3); Hematocrit 27.8 % (39.6-49.0); Lymphocytes % 0.4 % (15.3-44.8); MPV 8.5 fL (7.6-11.3); RBC Red Blood Cell Count 3.27 M/uL (4.33-5.43)
[2020-10-25 04:47] LABS: Albumin 2.1 g/dL (3.4-5.0); Bilirubin Total 0.3 mg/dL (0.2-1.0); Magnesium 1.9 mg/dL (1.8-2.4); Phosphorus 6.2 mg/dL (2.5-4.9); Potassium 3.7 mmol/L (3.5-5.1); Protein, Total 5.7 g/dL (6.4-8.2)
[2020-10-25] MEDS ORDERED: SEVELAMER CARBONATE 800 MG TABLET PO SCH (08:00)
[2020-10-25] MEDS: SODIUM ZIRCONIUM CYCLOSILICATE PO SCH (09:00)
[2020-10-25] MEDS ORDERED: ENOXAPARIN 30 MG/0.3 ML SQ SCH (09:00)
[2020-10-25] MEDS: FAMOTIDINE 20 MG TAB PO SCH ×2 (10:05→20:51)
[2020-10-25] MEDS: CALCITROL 0.25 MCG CAP PO SCH (10:05)
[2020-10-25] MEDS: dexAMETHasone 4 MG TAB PO SCH ×2 (10:06→20:51)
[2020-10-25] MEDS: GUAIFENESIN 600 MG SA TAB PO SCH ×2 (10:06→20:52)
[2020-10-25] MEDS: allopurinoL 100 MG TAB PO SCH (10:06)
[2020-10-25] MEDS: TAMSULOSIN 0.4 MG SR CAP PO SCH (10:06)
[2020-10-25] MEDS: ENOXAPARIN 80 MG/0.8 ML SQ SCH (10:06)
[2020-10-25] MEDS: MIDODRINE HCL 5 MG TABLET PO SCH ×3 (10:07→20:52)
[2020-10-25] MEDS ORDERED: VANCOMYCIN/NS 1 gm 1 GM/250 ML BAG IVPB SCH (11:15)
[2020-10-25] MEDS: PIPER/TAZO/NS 2.25gm 2.25 GM/50 ML BAG IVPB SCH ×2 (13:18→20:50)
--- NOTE | 2020-10-25 14:24 | PN ---
Date of Progress Note: 10/25/2020 Subjective: The patient is doing better. The patient was started on dialysis. The patient had episode of SVT. Blood pressure is still on the lower side. Physical Examination: Vital Signs: Blood pressure 101/50, pulse of 84, afebrile. Chest: Crackles bilateral. Heart: S1, S2. Systolic murmur. Abdomen: Soft, nontender. Extremities: No edema. Neuro: Alert, no focality. Laboratory Data: WBC 18.5, H and H 8.7/27.8. Sodium 139, potassium 3.7, bicarb 20, BUN 84, creatinine 5, calcium of 6, phos 6.2, magnesium 1.9. Troponin of 3. PTH 0.9, vitamin D still pending, serology and immunology still pending. Urinalysis notes white blood cell, RBC only 100, PC ratio of 1, but dipstick is +3. Serum protein electrophoresis is still pending. Current Medications: Include midodrine 5 t.i.d., Flomax, Epogen, calcium carbonate, hydralazine, allopurinol. Assessment And Plan: 1. Acute kidney injury, multifactorial, secondary to cardiorenal, poor perfusion, acute tubular necrosis. Over volume/toxic acute tubular necrosis/pulmonary renal over volume with mild acidosis. I am going to go ahead and arrange for another session of dialysis today and tomorrow. We will keep dialyzing the patient on high calcium bath and high bicarb bath with low blood flow to avoid any cardiac challenge and to establish better volume control for the patient. I am going to use sodium module to avoid hypotension during the dialysis. We will continue to use midodrine and we will monitor the patient. 2. Anemia of chronic kidney disease, status post transfusion: Continue LINDY. 3. Positive troponin. We will follow up with Cardiology. 4. SVT / elevation in Trop by Cardiology. 5. Nephritis. Waiting for the workup given the presence of pneumonia and COVID. I will hold CellCept for the time being and we will follow up the patient. 6. Respiratory failure, multifactorial, secondary to pulmonary/ renal/COVID/pneumonia. Continue current antibiotic dose appropriate. time spend exam the patient face to face , discussing with patient , reviewing la and radiology date, placing order , discussing the case with staff and with other team consultan and hospitalist 45 min. RODOLFO/BRIGIDA Voice ID: [id number] Report ID: [id number] KRISTEL
--- NOTE | 2020-10-25 17:31 | P.PN ---
Subjective Date of Service: 10/25/20 Chief Complaint: cough , SOB Subjective: No new changes (No acute events overnight, patient mildly hypoxic, reports shortness of breath, otherwise doing okay. Tolerated dialysis yesterday. Denies nausea/vomiting) Review of Systems 10-point ROS is otherwise unremarkable Physical Examination - Vital Signs Temperature: 96.9 F Blood Pressure: 120/55 Pulse: 102 Respirations: 22 Pulse Ox (%): 92 Assessment & Plan Physician Review Additional Text: Physical Exam General: Alert, In no apparent distress, Oriented x3 HEENT: Atraumatic, Normocephalic, PERRLA Respiratory: Diminished bilaterally, mild crackles at L base Cardiovascular: No edema, Normal pulses, Regular rate/rhythm, Normal S1 S2 Gastrointestinal: Soft and benign, Non-distended Ext: no edema, no rash Neurological: Normal speech, Normal strength at 5/5 x4 extr Problem List acute hypoxemic respiratory failure secondary to Covid 19 pneumonia Presumed left base community-acquired pneumonia elevated troponin Hypotension Chronic kidney disease stage 4 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 Webster, dialysis on 10/24, tolerated well -patient on cellcept and immunocompromised, antibiotics broadened to merrem and vanc after discussion with nephrology on 10/23, ID consulted as well -aspirin discontinued by nephrology - plan for biopsy -pulmonology consulted -Cardiology consulted for help/chest pressure, echocardiogram ordered and has not been done, trend troponin, therapeutic anticoagulation, possibly from Covid -continue home meds - hold antihypertensives as patient is hypotensive Dispo: anticipate hospitalization> 2days, likely dc home Time Spent Managing Pts Care (In Minutes): 35
[2020-10-25] MEDS ORDERED: EPOETIN ALFA 4000 UNIT/1 ML VIAL SQ ONE (19:00)
[2020-10-26] MEDS: PIPER/TAZO/NS 2.25gm 2.25 GM/50 ML BAG IVPB SCH ×3 (00:50→17:00)
[2020-10-26 05:06] LABS: Absolute Lymphocytes (CBC) 0.1 K/uL (0.7-4.9); Hematocrit 32.4 % (39.6-49.0); Lymphocytes % 0.4 % (15.3-44.8); RBC Red Blood Cell Count 3.83 M/uL (4.33-5.43)
[2020-10-26 05:19] LABS: Albumin 2.2 g/dL (3.4-5.0); Bilirubin Total 0.5 mg/dL (0.2-1.0); Magnesium 2.1 mg/dL (1.8-2.4); Phosphorus 4.4 mg/dL (2.5-4.9); Potassium 3.5 mmol/L (3.5-5.1); Protein, Total 6.6 g/dL (6.4-8.2)
[2020-10-26 05:58] LABS: Blood Morphology Comment NOTED (NOT SEEN); Platelet Estimate ADEQ
[2020-10-26 05:59] LABS: Ovalocytes SLIGHT
[2020-10-26 07:08] LABS: Ferritin 371.4 ng/mL (26-388)
[2020-10-26] MEDS: ENOXAPARIN 80 MG/0.8 ML SQ SCH (09:00)
[2020-10-26] MEDS: SODIUM ZIRCONIUM CYCLOSILICATE PO SCH (09:00)
[2020-10-26] MEDS: FAMOTIDINE 20 MG TAB PO SCH ×2 (09:00→20:39)
[2020-10-26] MEDS: GUAIFENESIN 600 MG SA TAB PO SCH ×2 (09:14→20:39)
[2020-10-26] MEDS: allopurinoL 100 MG TAB PO SCH (09:14)
[2020-10-26] MEDS: MIDODRINE HCL 5 MG TABLET PO SCH ×2 (09:14→20:39)
[2020-10-26] MEDS: CALCITROL 0.25 MCG CAP PO SCH ×2 (09:14→12:00)
[2020-10-26] MEDS: dexAMETHasone 4 MG TAB PO SCH ×2 (09:14→20:39)
[2020-10-26] MEDS: TAMSULOSIN 0.4 MG SR CAP PO SCH (09:14)
--- NOTE | 2020-10-26 09:27 | P.PN ---
Subjective Date of Service: 10/26/20 Chief Complaint: cough , SOB Subjective: No C/O voiced (Pt reports he is feeling a little better) Physical Examination - Vital Signs Temperature: 97.3 F Blood Pressure: 138/66 Pulse: 97 Respirations: 16 Pulse Ox (%): 93 - Physical Exam General: Cooperative HEENT: Atraumatic, Normocephalic, PERRLA Neck: Supple Respiratory: Diminished, Crackles/rales Cardiovascular: No edema Gastrointestinal: Soft and benign Musculoskeletal: No swelling Integumentary: No rashes Assessment And Plan - Plan Continue medication protocol for covid PNA, wean off O2 as tolerated. Continue to monitor labs Medical management per primary care team Monitor pt for s/s of infection Plan of care discussed with Dr. Holland Physician Review: Patient Assessed, Agree with Above Assessment and Plan Physician Review Additional Text: Physical Exam General: Alert, In no apparent distress, Oriented x3 HEENT: Atraumatic, Normocephalic, PERRLA Respiratory: Diminished bilaterally, mild crackles at L base Cardiovascular: No edema, Normal pulses, Regular rate/rhythm, Normal S1 S2 Gastrointestinal: Soft and benign, Non-distended Ext: no edema, no rash Neurological: Normal speech, Normal strength at 5/5 x4 extr Problem List acute hypoxemic respiratory failure secondary to Covid 19 pneumonia Presumed left base community-acquired pneumonia elevated troponin Hypotension Chronic kidney disease stage 4 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 Webster, dialysis on 10/24, tolerated well -patient on cellcept and immunocompromised, antibiotics broadened to merrem and vanc after discussion with nephrology on 10/23, ID consulted as well -aspirin discontinued by nephrology - plan for biopsy -pulmonology consulted -Cardiology consulted for help/chest pressure, echocardiogram ordered and has not been done, trend troponin, therapeutic anticoagulation, possibly from Covid -continue home meds - hold antihypertensives as patient is hypotensive Dispo: anticipate hospitalization> 2days, likely dc home
--- NOTE | 2020-10-26 10:54 | RAD REPORT ---
EXAM DESCRIPTION: Clarisse Single View10/26/2020 10:44 am CLINICAL HISTORY: Shortness of breath COMPARISON: October 24, 2020 FINDINGS: Mild worsening in the bilateral pulmonary opacities. Heart remains enlarged. Central veno us catheter in place IMPRESSION: Moderate to marked bilateral pulmonary opacities which have mildly worsened
[2020-10-26] MEDS ORDERED: FUROSEMIDE 40 MG/4 ML VIAL IV ONE (12:00)
--- NOTE | 2020-10-26 12:11 | PN ---
Date of Progress Note: 10/26/2020 Subjective: The patient was admitted with respiratory failure, acute kidney injury, over volume, COVID pneumonia, and community-acquired pneumonia. The patient was started on aggressive antibiotic with treatment for COVID. The patient for the acute kidney injury was initiated on dialysis. The patient has shortness of breath, slightly better. The patient had low blood pressure after dialysis. Blood pressure has been maintained good. The patient had dialysis, managed to remove 1 L. Physical Examination: Vital Signs: Blood pressure 138/66, pulse of 97, afebrile. Chest: Crackles with wheezing, more prominent right side. Heart: S1, S2. Systolic murmur. Abdomen: Soft, nontender. Extremities: No edema. Neuro: Alert, oriented x3. No focal. Laboratory Data: WBC 21.9, H and H 10.3/32.4. Sodium 143, potassium 3.5, bicarb 25, BUN 46, creatinine 3.2, calcium 7.6, phosphorus 4.4, magnesium 2.1. Troponin 2.8. Procalcitonin 0.6. PTH 224. TSH 0.08. Current Medications: The patient on are Zosyn, Vancomycin, albuterol, midodrine 5 t.i.d., Flomax, Epogen, calcium carbonate, dexamethasone, and Pepcid with allopurinol. Assessment And Plan: 1. Acute kidney injury secondary to cardiorenal. The possibility of nephritis looked to me low given the current improvement in the kidney function, even though this lab is post-dialysis. I am going to continue the patient on dialysis as the patient is still over volume. I will arrange for dialysis tomorrow. We will monitor the patient. The patient is going to be dialyzed on a flow rate of 300 and sodium module to try to establish better volume control. We will continue to use midodrine. I am going to give the patient a dose of Lasix today and we will follow up the patient. 2. Secondary hyperparathyroidism. Continue calcium carbonate and continue high calcium bath. 3. Hypokalemia. The patient is going to be dialyzed on high potassium bath. We are not going to supplement. 4. Anemia of chronic kidney disease with iron deficiency anemia. We will start the patient on IV iron and we will follow up the patient. Resume Retacrit. 5. Nephritis. Currently, the patient had possibility of pneumonia. We will keep holding Cellcept, plan to do biopsy on Tuesday as we held the aspirin and Plavix since Tuesday. 6. Congestive heart failure exacerbation. We will try to establish better volume control for the patient. We will follow up with Cardiology given the positive troponin. Time spent discussing with the patient, examining the patient, [id number] with the patient, placing orders, discussing the case with our merchandise team manager including nursing, discussing the case with the other subspecialty including Cardiology and hospitalist 45 minutes. MISSAEL Voice ID: [id number] Report ID: [id number] KRISTEL
--- NOTE | 2020-10-26 14:17 | CON ---
Date of Consultation: 10/25/2020 Reason For Consultation: Elevated troponin. History Of Present Illness: This is a 75-year-old male, who was admitted with history of prostate ca ncer, hypertension, acid reflux, dyslipidemia, chronic kidney disease and glomerulonephritis. Charles medina to the hospital with COVID-19 related pneumonia and went into respiratory failure due to that. T he patient had a troponin drawn and it was elevated, peaked at 3.6 and trending down. I evaluated tammy france by bedside. He denies having any chest pain. He is slightly short of breath and still has cough d ue to the COVID pneumonia. Past Medical History: As outlined above in the HPI. Medications: Refer to reconciliation sheet for detailed list. Allergies: NO KNOWN DRUG ALLERGIES. Family History: No premature coronary artery disease or cancer. Social History: Does not smoke or drink. Does not use any drugs. Review of Systems: All systems reviewed and they were negative except what is mentioned in HPI. Physical Examination: Vital Signs: Reviewed. Head and Neck: Pupils are equal, reactive to light. Intact eye movements. No JVD. No cervical lian nopathy. Neck: Supple. Thyroid is not enlarged. Lungs: Crackles bilaterally. No accessory muscle use or muscle retraction. Heart: Irregularly irregular. No extra sounds. Abdomen: Soft, nontender. Bowel sounds positive. No organomegaly. No masses or hernia. No rigidi ty or rebound. Extremities: No clubbing, cyanosis. Intact pulses. Skin: No rash. Neurologic: Alert, awake. No acute focal deficits appreciated. Lymph Nodes: No cervical or axillary lymphadenopathy. Investigations: Labs were reviewed. Troponin peaked at 3.6 and trending down. Last was 2.85. Assessment And Recommendations: Non-ST elevation myocardial infarction. This could be COVID-19 rela adam and troponin is trending down. Recommend aspirin and heparin or Lovenox, and obtain echocardiogr am and once COVID-19 status is more stable, recommend a nuclear stress test. At one point, this jennifer ent will probably need a coronary angiogram; however, I will hold on that until his COVID pneumonia i s under control and other determined factor will be if the patient starts having chest pain or dynami c EKG changes or any new rise in troponin, then we will plan for more urgent coronary angiogram, but at this point, since everything is stable and trending down, I recommend echo and stress test, aspiri n, heparin, and close monitoring. Thank for thank you for the consult. /BRIGIDA Voice ID: [id number] Report ID: [id number]
--- NOTE | 2020-10-26 14:36 | P.PN ---
Subjective Date of Service: 10/26/20 Chief Complaint: cough , SOB Subjective: No new changes (No acute events overnight, patient reports feeling about the same, breathing comfortably on 2 L nasal cannula, without nausea/vomiting/diarrhea. Denies abdominal pain, denies chest pain.) Review of Systems 10-point ROS is otherwise unremarkable Physical Examination - Vital Signs Temperature: 97.5 F Blood Pressure: 137/79 Pulse: 86 Respirations: 17 Pulse Ox (%): 94 Assessment & Plan Physician Review Additional Text: Physical Exam General: alert, appears fatigued HEENT: Normal conjunctiva, sclera anicteric Respiratory: Diminished bilaterally, mild crackles at L base, shallow respirations Cardiovascular: Regular rate/rhythm, Normal S1 S2 Gastrointestinal: Soft and benign, Non-distended Ext: no edema, no rash Neurological: Normal speech, Normal strength at 5/5 x4 extr Problem List acute hypoxemic respiratory failure secondary to Covid 19 pneumonia Presumed left base community-acquired pneumonia NSTEMI Hypotension SCAR on CKD4, now requiring dialysis 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 Webster, dialysis on 10/24, tolerated well -patient on cellcept and immunocompromised, antibiotics broadened to merrem and vanc after discussion with nephrology on 10/23, ID consulted as well -aspirin discontinued by nephrology - plan for biopsy on Tuesday -pulmonology consulted -Cardiology consulted for help/chest pressure, echocardiogram ordered and has not been done, troponin trending down, therapeutic anticoagulation, possibly from Covid / demand ischemia. denies chest pain -continue home meds - hold antihypertensives as patient is hypotensive Dispo: anticipate hospitalization> 2days, likely dc home; currently appears that he will need to be set up for dialysis after discharge Time Spent Managing Pts Care (In Minutes): 35
[2020-10-26 18:56] LABS: Hepatitis C Virus RNA (PCR)log <1.18 log IU/mL
[2020-10-26 21:25] VITALS: BMI 29.0
[2020-10-27] MEDS: PIPER/TAZO/NS 2.25gm 2.25 GM/50 ML BAG IVPB SCH ×2 (01:08→09:20)
[2020-10-27 04:11] LABS: Albumin 2.2 g/dL (3.4-5.0); Magnesium 2.1 mg/dL (1.8-2.4); Phosphorus 4.3 mg/dL (2.5-4.9); Potassium 3.3 mmol/L (3.5-5.1)
[2020-10-27 07:35] LABS: Absolute Lymphocytes (CBC) 0.1 K/uL (0.7-4.9); Basophils % 0.1 % (0-1.3); Lymphocytes % 0.8 % (15.3-44.8); MPV 9.2 fL (7.6-11.3); RBC Red Blood Cell Count 3.83 M/uL (4.33-5.43)
[2020-10-27] MEDS: SODIUM ZIRCONIUM CYCLOSILICATE PO SCH (07:35)
[2020-10-27] MEDS: ENOXAPARIN 80 MG/0.8 ML SQ SCH (09:10)
[2020-10-27] MEDS: GUAIFENESIN 600 MG SA TAB PO SCH ×2 (09:11→22:09)
[2020-10-27] MEDS: dexAMETHasone 4 MG TAB PO SCH ×2 (09:11→22:08)
[2020-10-27] MEDS: MIDODRINE HCL 5 MG TABLET PO SCH ×2 (09:11→22:08)
[2020-10-27] MEDS: allopurinoL 100 MG TAB PO SCH (09:11)
[2020-10-27] MEDS: TAMSULOSIN 0.4 MG SR CAP PO SCH (09:11)
[2020-10-27] MEDS: FAMOTIDINE 20 MG TAB PO SCH ×2 (09:11→22:09)
--- NOTE | 2020-10-27 14:09 | P.PN ---
Subjective Date of Service: 10/27/20 Chief Complaint: cough , SOB Patient seen examined at bedside, eyes knee he complaints. Currently utilizing 4 L oxygen via nasal cannula. Review of Systems 10-point ROS is otherwise unremarkable Physical Examination - Vital Signs Temperature: 97.6 F Blood Pressure: 155/79 Pulse: 96 Respirations: 18 Pulse Ox (%): 91 - Physical Exam General: Alert, In no apparent distress HEENT: Atraumatic, Normocephalic Neck: Supple, 2+ carotid pulse no bruit Respiratory: Diminished Cardiovascular: No edema, Normal pulses, Regular rate/rhythm Capillary refill: <2 Seconds Gastrointestinal: Normal bowel sounds, Non-distended Musculoskeletal: No clubbing, No swelling, No contractures Integumentary: No rashes, No breakdown, No significant lesion - Studies Active Medications Albuterol Sulfate (Albuterol 2.5 Mg/3 Ml Neb Lizbeth) 2.5 mg NEB [id number] PRN PRN Reason: SHORTNESS OF BREATH Last Admin: 10/23/20 08:40 Dose: 2.5 mg Documented by: Allopurinol (Allopurinol 100 Mg Tab) 100 mg PO DAILY [facility] Last Admin: 10/27/20 09:11 Dose: 100 mg Documented by: Benzonatate (Benzonatate 100 Mg Cap) 200 mg PO TID PRN PRN Reason: COUGH Calcitriol (Calcitrol 0.25 Mcg Cap) 0.25 mcg PO Q48H [facility] Last Admin: 10/26/20 12:00 Dose: 0.25 mcg Documented by: Calcium Carbonate/Glycine (Calcium Carbonate Chew 500mg Tab) 500 mg PO QID PRN PRN Reason: INDIGESTION Dexamethasone (Dexamethasone 4 Mg Tab) 4 mg PO BID [facility] Last Admin: 10/27/20 09:11 Dose: 4 mg Documented by: Enoxaparin Sodium (Enoxaparin 80 Mg/0.8 Ml) 70 mg SQ DAILY [facility] Last Admin: 10/27/20 09:10 Dose: 70 mg Documented by: Famotidine (Famotidine 20 Mg Tab) 20 mg PO BID [facility]; Protocol Last Admin: 10/27/20 09:11 Dose: 20 mg Documented by: Guaifenesin (Guaifenesin 600 Mg Sa Tab) 1,200 mg PO BID [facility] Last Admin: 10/27/20 09:11 Dose: 1,200 mg Documented by: Heparin Sodium (Porcine) (Heparin 1,000 Unit/Ml Vial) 5,000 unit IV PRN PRN PRN Reason: DIALYSIS BOLUS Heparin Sodium (Porcine) (Heparin 1,000 Unit/Ml Vial) 4,000 unit IV PRN PRN PRN Reason: DIALYSIS CATHETHER Home Med (Sodium Zirconium Cyclosilicate [Lokelma]) 10 gm PO DAILY [facility] Last Admin: 10/27/20 07:35 Dose: Not Given Documented by: Vancomycin HCl (Vancomycin 1 Gm/250 Ml Ns Ivpb) 1 gm in 250 mls @ 166.667 mls/hr IVPB AFTER EACH DIALYSIS [facility] Ferric Sodium Gluconate Complex 125 mg/ Sodium Chloride 110 mls @ 100 mls/hr IV EVERY HD [facility] Meropenem (Meropenem 500 Mg Vial) 500 mg IV Q12HR [facility]; Protocol Midodrine (Midodrine Hcl 5 Mg Tablet) 5 mg PO BID [facility] Last Admin: 10/27/20 09:11 Dose: 5 mg Documented by: Morphine Sulfate (Morphine 2 Mg/Ml Syr) 2 mg IV Q4H PRN PRN Reason: Pain scale 5-7 (Moderate) Sodium Chloride (Flush Normal Saline 10 Ml) 10 ml IV BID [facility] Last Admin: 10/27/20 09:12 Dose: 10 ml Documented by: Tamsulosin HCl (Tamsulosin 0.4 Mg Sr Cap) 0.4 mg PO DAILY [facility] Last Admin: 10/27/20 09:11 Dose: 0.4 mg Documented by: Temp Pulse Resp BP Pulse Ox 97.6 F 96 H 18 155/79 H 91 10/27/20 12:00 10/27/20 12:00 10/27/20 12:00 10/27/20 12:00 10/27/20 12:00 Laboratory Last Values WBC 8.10 K/uL (4.3-10.9) 10/22/20 12:45 RBC 3.60 M/uL (4.33-5.43) L 10/22/20 12:45 Hgb 9.8 g/dL (13.6-17.9) L 10/22/20 12:45 Hct 31.4 % (39.6-49.0) L 10/22/20 12:45 MCV 87.4 fL (80-100) D 10/22/20 12:45 MCH 27.1 pg (27.0-35.0) 10/22/20 12:45 MCHC 31.0 g/dL (32.0-36.0) L 10/22/20 12:45 RDW 15.5 % (12.1-15.2) H 10/22/20 12:45 Plt Count 209 K/uL (152-406) 10/22/20 12:45 MPV 8.9 fL (7.6-11.3) 10/22/20 12:45 Neutrophils % 89.2 % (41.7-73.7) H 10/22/20 12:45 Lymphocytes % 3.5 % (15.3-44.8) L 10/22/20 12:45 Monocytes % 7.0 % (3.3-12.3) 10/22/20 12:45 Eosinophils % 0.0 % (0-4.4) 10/22/20 12:45 Basophils % 0.3 % (0-1.3) 10/22/20 12:45 Absolute Neutrophils 7.3 K/uL (1.8-8.0) 10/22/20 12:45 Absolute Lymphocytes 0.3 K/uL (0.7-4.9) L 10/22/20 12:45 Absolute Monocytes 0.6 K/uL (0.1-1.3) 10/22/20 12:45 Absolute Eosinophils 0.0 K/uL (0-0.5) 10/22/20 12:45 Absolute Basophils 0.0 K/uL (0-0.5) 10/22/20 12:45 Platelet Estimate Adeq 10/22/20 12:45 Morphology Comment Not seen (NOT SEEN) 10/22/20 12:45 Sodium 140 mmol/L (136-145) 10/22/20 12:45 Potassium 4.2 mmol/L (3.5-5.1) 10/22/20 12:45 Chloride 108 mmol/L (98-107) H 10/22/20 12:45 Carbon Dioxide 15 mmol/L (21-32) L 10/22/20 12:45 BUN 96 mg/dL (7-18) H 10/22/20 12:45 Creatinine 6.01 mg/dL (0.55-1.3) H* 10/22/20 12:45 Estimated GFR 9 mL/min (=/>90) L 10/22/20 12:45 Glucose 102 mg/dL (74-106) 10/22/20 12:45 Lactic Acid 1.0 mmol/L (0.4-2.0) 10/22/20 12:48 Calcium 7.0 mg/dL (8.5-10.1) L 10/22/20 12:45 Procalcitonin 0.39 ng/mL (<0.050) H 10/22/20 12:45 Influenza Type A RNA Negative (NEGATIVE) 10/22/20 12:38 Influenza Type B RNA Negative (NEGATIVE) 10/22/20 12:38 SARS-CoV-2 RNA (RT-PCR) Positive (NEGATIVE) A 10/22/20 12:38 Smear Scan Ok (OK) 10/22/20 12:45 Microbiology Data (last 24 hrs): 10/22/20 12:40 Blood - Blood Aerobic Blood Culture - Final No growth in 5 days. 10/22/20 12:40 Blood - Blood Anaerobic Blood Culture - Final No growth in 5 days. 10/22/20 12:48 Blood - Blood Aerobic Blood Culture - Final No growth in 5 days. 10/22/20 12:48 Blood - Blood Anaerobic Blood Culture - Final No growth in 5 days. Assessment And Plan - Plan Conclusions/Impression: Antibiotics: Meropenem start: 10/23 Stop: -- Vancomycin start: 10/23 Stop: -- Assessment: -COVID 19 pneumonia -diffuse proliferative glomerular nephritis with CKD -CKD stage 4 -anemia Plan: -continue dexamethasone and ivermectin. Continue oxygen supplementation. Chest x-ray shows bilateral pulmonary opacities, pulmonary on board. -patient's is immunocompromised due to history chemotherapy/immunosuppressive drug use due to glomerular nephritis. Continue to monitor closely for any signs or symptoms of infection. Patient was empirically started on meropenem and vancomycin. -patient is a dialysis this weekend. Antibiotics renally dosed -medical management per primary team -continue monitor CBC and BMP -continue monitor for signs infection Plan of care discussed with Dr. Holland. Thank you for consultation. Physician Review: Patient Assessed, Agree with Above Assessment and Plan
[2020-10-27] MEDS: Meropenem 500 MG/100 ML BAG IV SCH (16:02)
--- NOTE | 2020-10-27 17:12 | P.PN ---
Subjective Date of Service: 10/27/20 Chief Complaint: cough , SOB Subjective: No new changes (states he feels about the same as yesterday, pt appears to be breathing slightly more labored today) Review of Systems 10-point ROS is otherwise unremarkable Physical Examination - Vital Signs Temperature: 97.5 F Blood Pressure: 138/70 Pulse: 95 Respirations: 18 Pulse Ox (%): 90 - Studies Microbiology Data (last 24 hrs): 10/22/20 12:40 Blood - Blood Aerobic Blood Culture - Final No growth in 5 days. 10/22/20 12:40 Blood - Blood Anaerobic Blood Culture - Final No growth in 5 days. 10/22/20 12:48 Blood - Blood Aerobic Blood Culture - Final No growth in 5 days. 10/22/20 12:48 Blood - Blood Anaerobic Blood Culture - Final No growth in 5 days. Assessment & Plan Physician Review: Patient Assessed, Agree with Above Assessment and Plan Physician Review Additional Text: Physical Exam General: alert, appears fatigued HEENT: Normal conjunctiva, sclera anicteric Respiratory: Diminished bilaterally, bilateral crackles, shallow respirations, slightly labored Cardiovascular: Regular rate/rhythm, Normal S1 S2 Gastrointestinal: Soft and benign, Non-distended Ext: no edema, no rash Neurological: Normal speech, Normal strength at 5/5 x4 extr Problem List acute hypoxemic respiratory failure secondary to Covid 19 pneumonia Presumed left base community-acquired pneumonia NSTEMI Hypotension SCAR on CKD4, now requiring dialysis 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 Webster, dialysis on 10/24, tolerated well -patient on cellcept and immunocompromised, antibiotics broadened to merrem and vanc after discussion with nephrology on 10/23, ID consulted as well -aspirin discontinued by nephrology - plan for biopsy on Tuesday -pulmonology consulted -Cardiology consulted for chest pressure, elevated troponin, echocardiogram ordered and has not been done, troponin trending down, therapeutic anticoagulation, possibly from Covid / demand ischemia. denies chest pain -continue home meds - hold antihypertensives as patient is hypotensive Dispo: anticipate hospitalization> 2days, likely dc home; currently appears that he will need to be set up for dialysis after discharge Time Spent Managing Pts Care (In Minutes): 35
[2020-10-27 19:51] LABS: HIV AG/AB 4TH GEN Non-reactive (Non-reactive)
[2020-10-27] MEDS ORDERED: Meropenem 500 MG VIAL IV SCH (21:00)
--- NOTE | 2020-10-27 21:42 | PN ---
Date of Progress Note: 10/27/2020 History Of Present Illness: The patient is admitted to the hospital because of acute kidney injury, volume overload, respiratory failure, hypoxemia secondary to COVID pneumonia and fluid overload. The patient was started on antibiotics and treatment for COVID pneumonia. Acute kidney injury has been progressively worse and the patient was initiated on dialysis. The patient had dialysis done for flu id management to remove fluid during dialysis with ultrafiltration. Review of Systems: Denies chest pain or palpitation. Physical Examination: Lungs: Few crackles at bases. Heart: S1, S2. Abdomen: Soft, benign. Extremities: No edema. Laboratory Data: BUN 46, creatinine 3.2, phosphorus 4.4. Troponin 2.8. Procalcitonin 0.6. PTH 224 . TSH 0.08. Impression And Plan: 1.Acute kidney injury secondary to cardiorenal syndrome. The patient has underlying chronic kidney disease. The patient will continue dialysis to control fluid overload. 2.Secondary hyperparathyroidism. Continue calcium carbonate to control hyperphosphatemia and hypoca lcemia. The patient may be a candidate for calcitriol. 3.Anemia of chronic kidney disease. Resume Procrit. 4.The patient has history of glomerulonephritis and was taking CellCept. The patient will have biop sy to re-evaluate activity of glomerulonephritis. Currently, CellCept is on hold due to COVID pneumonia. SULTANA/MODL Voice ID: [id number] Report ID: [id number]
[2020-10-28] MEDS: SOD FERRIC GLUC COMPLX/SUCROSE 125 MG in NA CHLORIDE 0.9% 100 ML IV SCH (02:00)
[2020-10-28] MEDS: Meropenem 500 MG/100 ML BAG IV SCH ×2 (03:00→15:36)
[2020-10-28 04:02] LABS: Absolute Lymphocytes (CBC) 0.1 K/uL (0.7-4.9); Basophils % 0.1 % (0-1.3); Hematocrit 29.6 % (39.6-49.0); Lymphocytes % 0.4 % (15.3-44.8); RBC Red Blood Cell Count 3.46 M/uL (4.33-5.43)
[2020-10-28 04:13] LABS: Ferritin 484.5 ng/mL (26-388); Phosphorus 2.6 mg/dL (2.5-4.9); Potassium 3.4 mmol/L (3.5-5.1)
[2020-10-28] MEDS: SODIUM ZIRCONIUM CYCLOSILICATE PO SCH (07:31)
--- NOTE | 2020-10-28 07:34 | RAD REPORT ---
EXAM DESCRIPTION: RAD - Chest Single View - 10/28/2020 6:17 am CLINICAL HISTORY: hypoxia, COVID pneumonia COMPARISON: Portable October 26 TECHNIQUE: AP portable chest image was obtained 10/28/2020 6:17 am . FINDINGS: Extensive bilateral pulmonary opacities are present most pronounced in the lower left lung field. Right upper lobe opacification is slightly worse than October 26. Left lung field findings are stable. Dialysis catheter present on the right. Enlarged cardiac silhouette is stable. No pneumothorax seen. No new or enlarging pleural effusion identifiable. No acute bony abnormality seen. No acute aortic fi ndings suspected. IMPRESSION: Extensive bilateral pneumonia changes with slight worsening in the right upper lobe.
--- NOTE | 2020-10-28 09:56 | P.PN ---
Subjective Date of Service: 10/28/20 Chief Complaint: cough , SOB No c/o of inc SOB. Physical Examination - Vital Signs Temperature: 97.1 F Blood Pressure: 138/70 Pulse: 91 Respirations: 18 Pulse Ox (%): 85 - Physical Exam General: In no apparent distress, Mild distress HEENT: Atraumatic, Normocephalic Neck: Supple Respiratory: Other (symmetric chest expansion) Cardiovascular: No gallops, No rubs, No murmurs Neurological: Normal speech, Normal tone - Studies Microbiology Data (last 24 hrs): 10/22/20 12:40 Blood - Blood Aerobic Blood Culture - Final No growth in 5 days. 10/22/20 12:40 Blood - Blood Anaerobic Blood Culture - Final No growth in 5 days. 10/22/20 12:48 Blood - Blood Aerobic Blood Culture - Final No growth in 5 days. 10/22/20 12:48 Blood - Blood Anaerobic Blood Culture - Final No growth in 5 days. Assessment And Plan - Plan # SCAR ? 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; was on dialysis; now on MMF but currently on hold 2/2 PNA Last HD received in April 2020 Current SCAR DDx: prerenal/ATN, PIGN flare, CRS1 Renal US unremarkable F/u serologies for GN ASA on hold since 10/24/20 Plan for renal bx this Tue HD started on 10/24; received HD yesterday; next HD tomorrow HD access: permcath Monitor renal panel # PIGN MMF on hold d/t PNA KBx this Tue # BPH Hx of prostate Ca s/p radiotx Cont flomax # Hypotension suspect from autonomic neuropathy aggravated by sepsis BP higher/better Hx of Htn TSH& serum B12 wnl Cont midodrine 5 mg po bid Epogen to help inc BP # COVID PNA Mngt per other services # Anemia Tsat low at 13% - defer IV iron therapy d/t acute infection B12 & folate not low TSH wnl Cont epogen # Acidosis Correction via HD # Hypocalcemia Improved Correction via HD & Ca supplement, & calcitriol F/u 25OHD # HyperPO4 On Ca binder # Secondary hyperPTH Cont calcitriol F/u 25OHD Physician Review: Patient Assessed, Agree with Above Assessment and Plan
[2020-10-28] MEDS: allopurinoL 100 MG TAB PO SCH (10:06)
[2020-10-28] MEDS: FAMOTIDINE 20 MG TAB PO SCH ×2 (10:06→21:04)
[2020-10-28] MEDS: MIDODRINE HCL 5 MG TABLET PO SCH ×2 (10:06→21:04)
[2020-10-28] MEDS: ENOXAPARIN 80 MG/0.8 ML SQ SCH (10:06)
[2020-10-28] MEDS: GUAIFENESIN 600 MG SA TAB PO SCH ×2 (10:06→21:03)
[2020-10-28] MEDS: TAMSULOSIN 0.4 MG SR CAP PO SCH (10:06)
[2020-10-28] MEDS: dexAMETHasone 4 MG TAB PO SCH ×2 (10:06→21:04)
[2020-10-28] MEDS: NEPRO SHAKE 237 ML CAN PO SCH ×2 (10:12→21:00)
--- NOTE | 2020-10-28 10:24 | P.PN ---
Subjective Date of Service: 10/28/20 Chief Complaint: cough , SOB Patient seen examined at bedside, patient has increased leukocytosis as well as tachycardia. Tachycardia likely due to decreased oxygenation. Patient placed on high-flow oxygen and still satting at 85%. Will repeat blood culture at this time. Patient on broad-spectrum antibiotic coverage with vancomycin and meropenem, no concern of a VRE or CRE. Review of Systems 10-point ROS is otherwise unremarkable Physical Examination - Vital Signs Temperature: 97.1 F Blood Pressure: 138/70 Pulse: 91 Respirations: 18 Pulse Ox (%): 85 - Studies Temp Pulse Resp BP Pulse Ox 97.1 F 91 H 18 138/70 85 L 10/28/20 09:56 10/28/20 09:56 10/28/20 09:56 10/28/20 09:56 10/28/20 09:56 Laboratory Last Values WBC 8.10 K/uL (4.3-10.9) 10/22/20 12:45 RBC 3.60 M/uL (4.33-5.43) L 10/22/20 12:45 Hgb 9.8 g/dL (13.6-17.9) L 10/22/20 12:45 Hct 31.4 % (39.6-49.0) L 10/22/20 12:45 MCV 87.4 fL (80-100) D 10/22/20 12:45 MCH 27.1 pg (27.0-35.0) 10/22/20 12:45 MCHC 31.0 g/dL (32.0-36.0) L 10/22/20 12:45 RDW 15.5 % (12.1-15.2) H 10/22/20 12:45 Plt Count 209 K/uL (152-406) 10/22/20 12:45 MPV 8.9 fL (7.6-11.3) 10/22/20 12:45 Neutrophils % 89.2 % (41.7-73.7) H 10/22/20 12:45 Lymphocytes % 3.5 % (15.3-44.8) L 10/22/20 12:45 Monocytes % 7.0 % (3.3-12.3) 10/22/20 12:45 Eosinophils % 0.0 % (0-4.4) 10/22/20 12:45 Basophils % 0.3 % (0-1.3) 10/22/20 12:45 Absolute Neutrophils 7.3 K/uL (1.8-8.0) 10/22/20 12:45 Absolute Lymphocytes 0.3 K/uL (0.7-4.9) L 10/22/20 12:45 Absolute Monocytes 0.6 K/uL (0.1-1.3) 10/22/20 12:45 Absolute Eosinophils 0.0 K/uL (0-0.5) 10/22/20 12:45 Absolute Basophils 0.0 K/uL (0-0.5) 10/22/20 12:45 Platelet Estimate Adeq 10/22/20 12:45 Morphology Comment Not seen (NOT SEEN) 10/22/20 12:45 Sodium 140 mmol/L (136-145) 10/22/20 12:45 Potassium 4.2 mmol/L (3.5-5.1) 10/22/20 12:45 Chloride 108 mmol/L (98-107) H 10/22/20 12:45 Carbon Dioxide 15 mmol/L (21-32) L 10/22/20 12:45 BUN 96 mg/dL (7-18) H 10/22/20 12:45 Creatinine 6.01 mg/dL (0.55-1.3) H* 10/22/20 12:45 Estimated GFR 9 mL/min (=/>90) L 10/22/20 12:45 Glucose 102 mg/dL (74-106) 10/22/20 12:45 Lactic Acid 1.0 mmol/L (0.4-2.0) 10/22/20 12:48 Calcium 7.0 mg/dL (8.5-10.1) L 10/22/20 12:45 Procalcitonin 0.39 ng/mL (<0.050) H 10/22/20 12:45 Influenza Type A RNA Negative (NEGATIVE) 10/22/20 12:38 Influenza Type B RNA Negative (NEGATIVE) 10/22/20 12:38 SARS-CoV-2 RNA (RT-PCR) Positive (NEGATIVE) A 10/22/20 12:38 Smear Scan Ok (OK) 10/22/20 12:45 Laboratory Last Values WBC 8.10 K/uL (4.3-10.9) 10/22/20 12:45 RBC 3.60 M/uL (4.33-5.43) L 10/22/20 12:45 Hgb 9.8 g/dL (13.6-17.9) L 10/22/20 12:45 Hct 31.4 % (39.6-49.0) L 10/22/20 12:45 MCV 87.4 fL (80-100) D 10/22/20 12:45 MCH 27.1 pg (27.0-35.0) 10/22/20 12:45 MCHC 31.0 g/dL (32.0-36.0) L 10/22/20 12:45 RDW 15.5 % (12.1-15.2) H 10/22/20 12:45 Plt Count 209 K/uL (152-406) 10/22/20 12:45 MPV 8.9 fL (7.6-11.3) 10/22/20 12:45 Neutrophils % 89.2 % (41.7-73.7) H 10/22/20 12:45 Lymphocytes % 3.5 % (15.3-44.8) L 10/22/20 12:45 Monocytes % 7.0 % (3.3-12.3) 10/22/20 12:45 Eosinophils % 0.0 % (0-4.4) 10/22/20 12:45 Basophils % 0.3 % (0-1.3) 10/22/20 12:45 Absolute Neutrophils 7.3 K/uL (1.8-8.0) 10/22/20 12:45 Absolute Lymphocytes 0.3 K/uL (0.7-4.9) L 10/22/20 12:45 Absolute Monocytes 0.6 K/uL (0.1-1.3) 10/22/20 12:45 Absolute Eosinophils 0.0 K/uL (0-0.5) 10/22/20 12:45 Absolute Basophils 0.0 K/uL (0-0.5) 10/22/20 12:45 Platelet Estimate Adeq 10/22/20 12:45 Morphology Comment Not seen (NOT SEEN) 10/22/20 12:45 Sodium 140 mmol/L (136-145) 10/22/20 12:45 Potassium 4.2 mmol/L (3.5-5.1) 10/22/20 12:45 Chloride 108 mmol/L (98-107) H 10/22/20 12:45 Carbon Dioxide 15 mmol/L (21-32) L 10/22/20 12:45 BUN 96 mg/dL (7-18) H 10/22/20 12:45 Creatinine 6.01 mg/dL (0.55-1.3) H* 10/22/20 12:45 Estimated GFR 9 mL/min (=/>90) L 10/22/20 12:45 Glucose 102 mg/dL (74-106) 10/22/20 12:45 Lactic Acid 1.0 mmol/L (0.4-2.0) 10/22/20 12:48 Calcium 7.0 mg/dL (8.5-10.1) L 10/22/20 12:45 Procalcitonin 0.39 ng/mL (<0.050) H 10/22/20 12:45 Influenza Type A RNA Negative (NEGATIVE) 10/22/20 12:38 Influenza Type B RNA Negative (NEGATIVE) 10/22/20 12:38 SARS-CoV-2 RNA (RT-PCR) Positive (NEGATIVE) A 10/22/20 12:38 Smear Scan Ok (OK) 10/22/20 12:45 Microbiology Data (last 24 hrs): 10/22/20 12:40 Blood - Blood Aerobic Blood Culture - Final No growth in 5 days. 10/22/20 12:40 Blood - Blood Anaerobic Blood Culture - Final No growth in 5 days. 10/22/20 12:48 Blood - Blood Aerobic Blood Culture - Final No growth in 5 days. 10/22/20 12:48 Blood - Blood Anaerobic Blood Culture - Final No growth in 5 days. Assessment And Plan - Plan General: Alert, In no apparent distress HEENT: Atraumatic, Normocephalic Neck: Supple, 2+ carotid pulse no bruit Respiratory: Diminished Cardiovascular: No edema, Normal pulses, Regular rate/rhythm Capillary refill: <2 Seconds Gastrointestinal: Normal bowel sounds, Non-distended Musculoskeletal: No clubbing, No swelling, No contractures Integumentary: No rashes, No breakdown, No significant lesion Conclusions/Impression: Antibiotics: Meropenem start: 10/23 Stop: -- Vancomycin start: 10/23 Stop: -- Assessment: -COVID 19 pneumonia -diffuse proliferative glomerular nephritis with CKD -CKD stage 4 -anemia Plan: -continue dexamethasone and ivermectin. Continue oxygen supplementation. Chest x-ray shows bilateral pulmonary opacities, pulmonary on board. Patient has decr eased O2 stats ED on high-flow oxygen. Tachycardia likely attributed to all decrease O2 stats. -patient's is immunocompromised due to history chemotherapy/immunosuppressive drug use due to glomerular nephritis. Continue to monitor closely for any signs or symptoms of infection. Patient was empirically started on meropenem and vancomycin. -Blood cultures taken on 10/22: Negative. Repeat blood cultures and procalcitonin ordered. Patient has increased WBC and 19.3 on 11/05. Continue broad-spectrum antibiotic coverage. Patient is on steroids. -patient is a dialysis this weekend. Antibiotics renally dosed -medical management per primary team -continue monitor CBC and BMP -continue monitor for signs infection Plan of care discussed with Dr. Holland. Thank you for consultation. Physician Review: Patient Assessed, Agree with Above Assessment and Plan Physician Review Additional Text: Physical Exam General: alert, appears fatigued HEENT: Normal conjunctiva, sclera anicteric Respiratory: Diminished bilaterally, bilateral crackles, shallow respirations, slightly labored Cardiovascular: Regular rate/rhythm, Normal S1 S2 Gastrointestinal: Soft and benign, Non-distended Ext: no edema, no rash Neurological: Normal speech, Normal strength at 5/5 x4 extr Problem List acute hypoxemic respiratory failure secondary to Covid 19 pneumonia Presumed left base community-acquired pneumonia NSTEMI Hypotension SCAR on CKD4, now requiring dialysis 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 Webster, dialysis on 10/24, tolerated well -patient on cellcept and immunocompromised, antibiotics broadened to merrem and vanc after discussion with nephrology on 10/23, ID consulted as well -aspirin discontinued by nephrology - plan for biopsy on Tuesday -pulmonology consulted -Cardiology consulted for chest pressure, elevated troponin, echocardiogram ordered and has not been done, troponin trending down, therapeutic anticoagulation, possibly from Covid / demand ischemia. denies chest pain -continue home meds - hold antihypertensives as patient is hypotensive Dispo: anticipate hospitalization> 2days, likely dc home; currently appears that he will need to be set up for dialysis after discharge
[2020-10-28 10:53] LABS: Vitamin D 1,25-Dihydroxy Total 38 pg/mL (18-72); Vitamin D,1,25-OH2, D2 <8 pg/mL
[2020-10-28] MEDS: CALCITROL 0.25 MCG CAP PO SCH (12:48)
--- NOTE | 2020-10-28 16:34 | P.PN ---
Subjective Date of Service: 10/28/20 Chief Complaint: cough , SOB No major changes from yesterday. Patient remain on 15 L/min oxygen by nasal cannula. Physical Examination - Vital Signs Temperature: 97.0 F Blood Pressure: 125/65 Pulse: 84 Respirations: 18 Pulse Ox (%): 89 - Physical Exam General: Other (Awake) HEENT: Other (Oxygen by nasal cannula) Neck: JVD not distended Respiratory: Other (Nonlabored breathing) Cardiovascular: No edema, Regular rate/rhythm Gastrointestinal: Soft and benign, Non-distended Musculoskeletal: No swelling Integumentary: No rashes Neurological: Other (No focal motor deficit.) - Studies Microbiology Data (last 24 hrs): 10/22/20 12:40 Blood - Blood Aerobic Blood Culture - Final No growth in 5 days. 10/22/20 12:40 Blood - Blood Anaerobic Blood Culture - Final No growth in 5 days. 10/22/20 12:48 Blood - Blood Aerobic Blood Culture - Final No growth in 5 days. 10/22/20 12:48 Blood - Blood Anaerobic Blood Culture - Final No growth in 5 days. 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 Webster, dialysis started on 10/24, tolerated well -patient on cellcept and immunocompromised. He is on broad-spectrum antibiotics-meropenem and vancomycin. -ID is following. -aspirin discontinued by nephrology - plan for biopsy on Tuesday -outpatient hemodialysis per nephrology. -pulmonology is following. -Cardiology consulted for chest pressure, elevated troponin., echocardiogram done, result is pending. Elevated troponin likely secondary to demand ischemia. -holding antihypertensives due to soft blood pressure.
[2020-10-28 18:36] LABS: HBsAG Nonreactive (Nonreactive)
[2020-10-29] MEDS: Meropenem 500 MG/100 ML BAG IV SCH ×2 (03:00→14:53)
[2020-10-29 05:22] LABS: Absolute Lymphocytes (CBC) 0.1 K/uL (0.7-4.9); Basophils % 0.1 % (0-1.3); Hematocrit 28.6 % (39.6-49.0); Lymphocytes % 0.6 % (15.3-44.8); MPV 9.5 fL (7.6-11.3); RBC Red Blood Cell Count 3.32 M/uL (4.33-5.43)
[2020-10-29 05:59] LABS: Albumin 1.9 g/dL (3.4-5.0); Phosphorus 4.3 mg/dL (2.5-4.9); Potassium 3.5 mmol/L (3.5-5.1)
[2020-10-29] MEDS: MIDODRINE HCL 5 MG TABLET PO SCH (08:47)
[2020-10-29] MEDS: dexAMETHasone 4 MG TAB PO SCH ×2 (08:47→21:15)
[2020-10-29] MEDS: FAMOTIDINE 20 MG TAB PO SCH ×2 (08:47→21:16)
[2020-10-29] MEDS: allopurinoL 100 MG TAB PO SCH (08:47)
[2020-10-29] MEDS: GUAIFENESIN 600 MG SA TAB PO SCH ×2 (08:48→21:16)
[2020-10-29] MEDS: ENOXAPARIN 80 MG/0.8 ML SQ SCH (08:48)
[2020-10-29] MEDS: NEPRO SHAKE 237 ML CAN PO SCH ×2 (08:48→21:00)
[2020-10-29] MEDS: TAMSULOSIN 0.4 MG SR CAP PO SCH (08:48)
[2020-10-29] MEDS: SODIUM ZIRCONIUM CYCLOSILICATE PO SCH (08:49)
[2020-10-29] MEDS ORDERED: MIDODRINE HCL 5 MG TABLET PO SCH (13:00)
--- NOTE | 2020-10-29 14:51 | P.PN ---
Subjective Date of Service: 10/29/20 Chief Complaint: cough , SOB Patient seen examined at bedside, WBC within normal range-responding well to antibiotics. Review of Systems 10-point ROS is otherwise unremarkable Physical Examination - Vital Signs Temperature: 987.5 F Blood Pressure: 141/63 Pulse: 70 Respirations: 24 Pulse Ox (%): 94 - Studies Laboratory Last Values WBC 8.10 K/uL (4.3-10.9) 10/22/20 12:45 RBC 3.60 M/uL (4.33-5.43) L 10/22/20 12:45 Hgb 9.8 g/dL (13.6-17.9) L 10/22/20 12:45 Hct 31.4 % (39.6-49.0) L 10/22/20 12:45 MCV 87.4 fL (80-100) D 10/22/20 12:45 MCH 27.1 pg (27.0-35.0) 10/22/20 12:45 MCHC 31.0 g/dL (32.0-36.0) L 10/22/20 12:45 RDW 15.5 % (12.1-15.2) H 10/22/20 12:45 Plt Count 209 K/uL (152-406) 10/22/20 12:45 MPV 8.9 fL (7.6-11.3) 10/22/20 12:45 Neutrophils % 89.2 % (41.7-73.7) H 10/22/20 12:45 Lymphocytes % 3.5 % (15.3-44.8) L 10/22/20 12:45 Monocytes % 7.0 % (3.3-12.3) 10/22/20 12:45 Eosinophils % 0.0 % (0-4.4) 10/22/20 12:45 Basophils % 0.3 % (0-1.3) 10/22/20 12:45 Absolute Neutrophils 7.3 K/uL (1.8-8.0) 10/22/20 12:45 Absolute Lymphocytes 0.3 K/uL (0.7-4.9) L 10/22/20 12:45 Absolute Monocytes 0.6 K/uL (0.1-1.3) 10/22/20 12:45 Absolute Eosinophils 0.0 K/uL (0-0.5) 10/22/20 12:45 Absolute Basophils 0.0 K/uL (0-0.5) 10/22/20 12:45 Platelet Estimate Adeq 10/22/20 12:45 Morphology Comment Not seen (NOT SEEN) 10/22/20 12:45 Sodium 140 mmol/L (136-145) 10/22/20 12:45 Potassium 4.2 mmol/L (3.5-5.1) 10/22/20 12:45 Chloride 108 mmol/L (98-107) H 10/22/20 12:45 Carbon Dioxide 15 mmol/L (21-32) L 10/22/20 12:45 BUN 96 mg/dL (7-18) H 10/22/20 12:45 Creatinine 6.01 mg/dL (0.55-1.3) H* 10/22/20 12:45 Estimated GFR 9 mL/min (=/>90) L 10/22/20 12:45 Glucose 102 mg/dL (74-106) 10/22/20 12:45 Lactic Acid 1.0 mmol/L (0.4-2.0) 10/22/20 12:48 Calcium 7.0 mg/dL (8.5-10.1) L 10/22/20 12:45 Procalcitonin 0.39 ng/mL (<0.050) H 10/22/20 12:45 Influenza Type A RNA Negative (NEGATIVE) 10/22/20 12:38 Influenza Type B RNA Negative (NEGATIVE) 10/22/20 12:38 SARS-CoV-2 RNA (RT-PCR) Positive (NEGATIVE) A 10/22/20 12:38 Smear Scan Ok (OK) 10/22/20 12:45 Albuterol Sulfate (Albuterol 2.5 Mg/3 Ml Neb Lizbeth) 2.5 mg NEB [id number] PRN PRN Reason: SHORTNESS OF BREATH Last Admin: 10/23/20 08:40 Dose: 2.5 mg Documented by: Allopurinol (Allopurinol 100 Mg Tab) 100 mg PO DAILY VICK Last Admin: 10/29/20 08:47 Dose: 100 mg Documented by: Benzonatate (Benzonatate 100 Mg Cap) 200 mg PO TID PRN PRN Reason: COUGH Calcitriol (Calcitrol 0.25 Mcg Cap) 0.25 mcg PO Q48H [facility] Last Admin: 10/28/20 12:48 Dose: 0.25 mcg Documented by: Calcium Carbonate/Glycine (Calcium Carbonate Chew 500mg Tab) 500 mg PO QID PRN PRN Reason: INDIGESTION Dexamethasone (Dexamethasone 4 Mg Tab) 4 mg PO BID [facility] Last Admin: 10/29/20 08:47 Dose: 4 mg Documented by: Enoxaparin Sodium (Enoxaparin 80 Mg/0.8 Ml) 70 mg SQ DAILY [facility] Last Admin: 10/29/20 08:48 Dose: 70 mg Documented by: Enteral Nutritional Formula (Nepro Shake 237 Ml Can) 237 ml PO BID [facility] Last Admin: 10/29/20 08:48 Dose: 237 ml Documented by: Famotidine (Famotidine 20 Mg Tab) 20 mg PO BID [facility]; Protocol Last Admin: 10/29/20 08:47 Dose: 20 mg Documented by: Guaifenesin (Guaifenesin 600 Mg Sa Tab) 1,200 mg PO BID [facility] Last Admin: 10/29/20 08:48 Dose: 1,200 mg Documented by: Heparin Sodium (Porcine) (Heparin 1,000 Unit/Ml Vial) 5,000 unit IV PRN PRN PRN Reason: DIALYSIS BOLUS Heparin Sodium (Porcine) (Heparin 1,000 Unit/Ml Vial) 4,000 unit IV PRN PRN PRN Reason: DIALYSIS CATHETHER Last Admin: 10/28/20 00:28 Dose: 4,000 unit Documented by: Home Med (Sodium Zirconium Cyclosilicate [Lokelma]) 10 gm PO DAILY [facility] Last Admin: 10/29/20 08:49 Dose: Not Given Documented by: Ferric Sodium Gluconate Complex 125 mg/ Sodium Chloride 110 mls @ 100 mls/hr IV EVERY HD [facility] Last Admin: 10/28/20 02:00 Dose: 110 mls Documented by: Meropenem (Merrem 500 Mg/100 Ml Ns Ivpb) 500 mg in 100 mls @ 100 mls/hr IV Q12H [facility] Last Admin: 10/29/20 03:00 Dose: 100 mls Documented by: Vancomycin HCl 500 mg/ Sodium (Chloride) 100 mls @ 100 mls/hr IVPB AFTER EACH DIALYSIS [facility] Midodrine (Midodrine Hcl 5 Mg Tablet) 5 mg PO EVERY HD [facility] Morphine Sulfate (Morphine 2 Mg/Ml Syr) 2 mg IV Q4H PRN PRN Reason: Pain scale 5-7 (Moderate) Sodium Chloride (Flush Normal Saline 10 Ml) 10 ml IV BID [facility] Last Admin: 10/29/20 08:49 Dose: 10 ml Documented by: Tamsulosin HCl (Tamsulosin 0.4 Mg Sr Cap) 0.4 mg PO DAILY [facility] Last Admin: 10/29/20 08:48 Dose: 0.4 mg Documented by: Temp Pulse Resp BP Pulse Ox 987.5 F H 70 24 H 141/63 H 94 10/29/20 12:00 10/29/20 12:00 10/29/20 12:00 10/29/20 12:00 10/29/20 12:00 Assessment And Plan - Plan General: Alert, In no apparent distress HEENT: Atraumatic, Normocephalic Neck: Supple, 2+ carotid pulse no bruit Respiratory: Diminished Cardiovascular: No edema, Normal pulses, Regular rate/rhythm Capillary refill: <2 Seconds Gastrointestinal: Normal bowel sounds, Non-distended Musculoskeletal: No clubbing, No swelling, No contractures Integumentary: No rashes, No breakdown, No significant lesion Conclusions/Impression: Antibiotics: Meropenem start: 10/23 Stop: -- Vancomycin start: 10/23 Stop: -- Assessment: -COVID 19 pneumonia -diffuse proliferative glomerular nephritis with CKD -CKD stage 4 -anemia Plan: -continue dexamethasone and ivermectin. Continue oxygen supplementation. Chest x-ray shows bilateral pulmonary opacities, pulmonary on board. Patient has decreased O2 stats ED on high-flow oxygen. Tachycardia likely attributed to all decrease O2 stats. -patient's is immunocompromised due to history chemotherapy/immunosuppressive drug use due to glomerular nephritis. Continue to monitor closely for any signs or symptoms of infection. Patient was empirically started on meropenem and vancomycin. -Blood cultures taken on 10/22: Negative. Repeat blood cultures on 10/28: negative. Procal elevated however is downtrending. WBC within normal range. Continue broad-spectrum antibiotic coverage. Patient is on steroids. -patient is a dialysis this . Antibiotics renally dosed. Kidney biopsy planned for this Tuesday. -medical management per primary team -continue monitor CBC and BMP -continue monitor for signs infection Plan of care discussed with Dr. Holland. Thank you for consultation. Physician Review: Patient Assessed, Agree with Above Assessment and Plan
--- NOTE | 2020-10-29 14:56 | PN ---
Date of Progress Note: 10/29/2020 Subjective: The patient was admitted with this acute kidney injury, unknown etiology, possibly secondary to cardiorenal/activation on his proliferative disease. The patient was started on dialysis. The patient still has required high-flow. Plan for biopsy on Tuesday. Physical Examination: Vital Signs: Blood pressure 126/66, pulse of 80, afebrile, still oliguric. Chest: Crackles bilateral. Heart: S1, S2. Systolic murmur. Abdomen: Soft, nontender. Extremity: No edema. Neuro: The patient alert, oriented to person, not oriented to time. No focality. Laboratory Data: WBC 10.1, H and H 9.1/28.6. Sodium 143, potassium 3.5, bicarb 28, BUN 70, creatinine 2.9, calcium 7.4, phosphorus 4.3, albumin 1.9. Corrected calcium is 9. Current Medications: The patient on include; 1. Meropenem. 2. Vancomycin. 3. Midodrine 5 b.i.d. 4. Flomax. 5. IV iron. 6. Dexamethasone. 7. Allopurinol. Assessment And Plan: 1. Acute kidney injury, multifactorial, secondary to toxic ATN/cardiorenal to rule out any proliferative disease. The patient was scheduled for kidney biopsy. We will follow up, keep holding any aspirin or Plavix. We will hold Lovenox by tomorrow. 2. Hypertension, controlled, optimal currently. I am going to go ahead and change the midodrine before the dialysis currently and we will monitor the patient. 3. Anemia of iron deficiency anemia. Continue IV iron. 4. Pneumonia on immunocompromised patient. Culture still negative. I am going to continue current antibiotic. We will follow up. Follow up with ID. 5. Coronary artery disease with congestive heart failure as by primary. 6. COVID pneumonia. Continue current treatment. Time spent discussing with the patient, examining the patient, [id number] with the patient, placing orders, discussing the case with our steam trap worker including nursing, discussing the case with the other subspecialty including Cardiology and hospitalist 35 minutes. MISSAEL Voice ID: [id number] Report ID: [id number] [facility]ITALMathe[facility]
[2020-10-29] MEDS: SOD FERRIC GLUC COMPLX/SUCROSE 125 MG in NA CHLORIDE 0.9% 100 ML IV SCH (16:00)
--- NOTE | 2020-10-29 16:10 | EKG ---
Test Date: 2020-10-28 Test Time: 20:41:47 Greaser And Oiler: ANANDA MEASUREMENT RESULTS: Intervals: Rate: 103 MO: 92 QRSD: 140 QT: 384 QTc: 503 [place]: P: -3 MO: 92 QRS: 77 T: -4 INTERPRETIVE STATEMENTS: Sinus tachycardia with short MO with premature atrial complexes Right bundle branch block T wave abnormality, consider inferior ischemia Abnormal ECG Compared to ECG 10/25/2020 05:57:48 Atrial premature complex(es) now present Short MO interval now present T-wave abnormality now present Possible ischemia now present Sinus rhythm no longer present Electronically Signed On 10-29-20 16:07:05 CDT by Dustin López
--- NOTE | 2020-10-29 17:32 | P.PN ---
Subjective Date of Service: 10/29/20 Chief Complaint: cough , SOB Patient is now requiring high-flow oxygen. Physical Examination - Vital Signs Temperature: 987.5 F Blood Pressure: 141/63 Pulse: 70 Respirations: 24 Pulse Ox (%): 94 - Physical Exam General: In no apparent distress, Oriented x3, Other (Awake) Neck: JVD not distended Respiratory: Other (Nonlabored breathing) Cardiovascular: No edema, Regular rate/rhythm, Normal S1 S2 Gastrointestinal: Soft and benign, Non-distended, No tenderness Musculoskeletal: No swelling Integumentary: No erythema Neurological: Normal strength at 5/5 x4 extr Assessment And Plan Physician Review: Patient Assessed, Agree with Above Assessment and Plan Physician Review Additional Text: Problem List acute hypoxemic respiratory failure secondary to Covid 19 pneumonia Presumed left base community-acquired pneumonia NSTEMI Hypotension SCAR on CKD4, now requiring dialysis 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 Patient started on hemodialysis. -patient on cellcept and immunocompromised, continue merrem and vanc, ID is following. -aspirin discontinued by nephrology - plan for biopsy on Tuesday -seen by pulmonology. -Cardiology consulted for chest pressure, elevated troponin, echocardiogram ordered and has not been done, troponin trending down, therapeutic anticoagulation, possibly from Covid / demand ischemia. -continue home meds - holding antihypertensives due to soft blood pressure.
[2020-10-29] MEDS ORDERED: VANCOMYCIN 500 MG/VIAL ONE (22:41)
[2020-10-29] MEDS: VANCOMYCIN 500 MG in NA CHLORIDE 0.9% 100 ML IVPB SCH (23:10)
[2020-10-29] MEDS ORDERED: NA CHLORIDE 0.9% 100 ML ONE (23:14)
[2020-10-30] MEDS: Meropenem 500 MG/100 ML BAG IV SCH ×2 (03:00→17:52)
[2020-10-30 04:58] LABS: Absolute Lymphocytes (CBC) 0.1 K/uL (0.7-4.9); Basophils % 0.1 % (0-1.3); Lymphocytes % 0.9 % (15.3-44.8); MPV 10.1 fL (7.6-11.3); RBC Red Blood Cell Count 3.34 M/uL (4.33-5.43)
[2020-10-30 05:06] LABS: Albumin 1.9 g/dL (3.4-5.0); Phosphorus 4.1 mg/dL (2.5-4.9); Potassium 3.9 mmol/L (3.5-5.1)
[2020-10-30 07:06] LABS: Albumin, (SPE) 2.4 g/dL (3.8-4.8); Alpha-1-Globulins 0.6 g/dL (0.2-0.3); Gamma Globulins 0.7 g/dL (0.8-1.7); INTERPRETATION REPORT
--- NOTE | 2020-10-30 08:09 | ECHO ---
HEIGHT: 5 ft 2 in WEIGHT: 156 lb 9.6 oz DATE OF STUDY: 10/28/[address]: Fadi Dee MD 2-DIMENSIONAL: YES M.MODE: YES DOPPLER: YES COLOR FLOW: YES TDS: NO PORTABLE: NO DEFINITY: NO BUBBLE STUDY: NO DIAGNOSIS: SHORTNESS OF BREATH, EVALUATE LEFT VENTRICULAR FUNCTION. CARDIAC HISTORY: CATHERIZATION: NO SURGERY: NO PROSTHETIC VALVE: NO PACEMAKER: NO MEASUREMENTS (cm) DIASTOLIC (NORMALS) SYSTOLIC (NORMALS) IVSd 1.5 (0.6-1.2) LA Diam 3.4 (1.9-4.0) LVEF 51-55% LVIDd 4.0 (3.5-5.7) LVIDs 3.1 (2.0-3.5) %FS 22% LVPWd 1.4 (0.6-1.2) Ao Diam 2.9 (2.0-3.7) 2 DIMENSIONAL ASSESSMENT: RIGHT ATRIUM: NORMAL LEFT ATRIUM: NORMAL RIGHT VENTRICLE: NORMAL LEFT VENTRICLE: NORMAL TRICUSPID VALVE: NORMAL MITRAL VALVE: MITRAL ANNULAR CALCIFICATION PULMONIC VALVE: NORMAL AORTIC VALVE: SCLEROSIS PERICARDIAL EFFUSION: NONE AORTIC ROOT: NORMAL LEFT VENTRICULAR WALL MOTION: LEFT VENTRICULAR HYPERTROPHY. NORMAL LEFT VENTRICULAR EJECTION FRACTION. DECREASED LEFT VENTRICULAR COMPLIANCE. DOPPLER/COLOR FLOW: DECREASED LEFT VENTRICULAR COMPLIANCE. COMMENTS: LEFT VENTRICULAR HYPERTROPHY. DECREASED LEFT VENTRICULAR COMPLIANCE. NORMAL LEFT VENTRICULAR EJECTION FRACTION. MITRAL ANNULAR CALCIFICATION. AORTIC SCLEROSIS. TECHNOLOGIST: Rosa VARNER
[2020-10-30] MEDS: dexAMETHasone 4 MG TAB PO SCH ×2 (08:33→21:40)
[2020-10-30] MEDS: allopurinoL 100 MG TAB PO SCH (08:33)
[2020-10-30] MEDS: FAMOTIDINE 20 MG TAB PO SCH ×2 (08:33→21:40)
[2020-10-30] MEDS: GUAIFENESIN 600 MG SA TAB PO SCH ×2 (08:33→21:40)
[2020-10-30] MEDS: TAMSULOSIN 0.4 MG SR CAP PO SCH (08:33)
[2020-10-30] MEDS: ENOXAPARIN 80 MG/0.8 ML SQ SCH (08:34)
[2020-10-30] MEDS: NEPRO SHAKE 237 ML CAN PO SCH ×2 (08:34→21:00)
[2020-10-30] MEDS: SODIUM ZIRCONIUM CYCLOSILICATE PO SCH (08:36)
[2020-10-30 08:41] LABS: Blood Morphology Comment NOT SEEN (NOT SEEN); Platelet Estimate ADEQ
--- NOTE | 2020-10-30 10:33 | P.PN ---
Subjective Date of Service: 10/30/20 Chief Complaint: cough , SOB Patient seen examined at bedside, blood cell count slightly elevated today at 13.9. Vanco trough taken on 10/29 was 4.5, this is likely the reason for the patient's increase in WBC. Continue vancomycin dosage adjustment via pharmacy. Review of Systems 10-point ROS is otherwise unremarkable Physical Examination - Vital Signs Temperature: 96.7 F Blood Pressure: 125/62 Pulse: 57 Respirations: 20 Pulse Ox (%): 92 - Studies Active Medications Albuterol Sulfate (Albuterol 2.5 Mg/3 Ml Neb Lizbeth) 2.5 mg NEB [id number] PRN PRN Reason: SHORTNESS OF BREATH Last Admin: 10/23/20 08:40 Dose: 2.5 mg Documented by: Allopurinol (Allopurinol 100 Mg Tab) 100 mg PO DAILY [facility] Last Admin: 10/30/20 08:33 Dose: 100 mg Documented by: Benzonatate (Benzonatate 100 Mg Cap) 200 mg PO TID PRN PRN Reason: COUGH Calcitriol (Calcitrol 0.25 Mcg Cap) 0.25 mcg PO Q48H [facility] Last Admin: 10/28/20 12:48 Dose: 0.25 mcg Documented by: Calcium Carbonate/Glycine (Calcium Carbonate Chew 500mg Tab) 500 mg PO QID PRN PRN Reason: INDIGESTION Dexamethasone (Dexamethasone 4 Mg Tab) 4 mg PO BID [facility] Last Admin: 10/30/20 08:33 Dose: 4 mg Documented by: Enoxaparin Sodium (Enoxaparin 80 Mg/0.8 Ml) 70 mg SQ DAILY [facility] Last Admin: 10/30/20 08:34 Dose: Not Given Documented by: Enteral Nutritional Formula (Nepro Shake 237 Ml Can) 237 ml PO BID [facility] Last Admin: 10/30/20 08:34 Dose: 237 ml Documented by: Famotidine (Famotidine 20 Mg Tab) 20 mg PO BID [facility]; Protocol Last Admin: 10/30/20 08:33 Dose: 20 mg Documented by: Guaifenesin (Guaifenesin 600 Mg Sa Tab) 1,200 mg PO BID [facility] Last Admin: 10/30/20 08:33 Dose: 1,200 mg Documented by: Heparin Sodium (Porcine) (Heparin 1,000 Unit/Ml Vial) 5,000 unit IV PRN PRN PRN Reason: DIALYSIS BOLUS Last Admin: 10/29/20 15:35 Dose: 5,000 unit Documented by: Heparin Sodium (Porcine) (Heparin 1,000 Unit/Ml Vial) 4,000 unit IV PRN PRN PRN Reason: DIALYSIS CATHETHER Last Admin: 10/29/20 18:48 Dose: 4,000 unit Documented by: Home Med (Sodium Zirconium Cyclosilicate [Lokelma]) 10 gm PO DAILY [facility] Last Admin: 10/30/20 08:36 Dose: Not Given Documented by: Ferric Sodium Gluconate Complex 125 mg/ Sodium Chloride 110 mls @ 100 mls/hr IV EVERY HD [facility] Last Admin: 10/29/20 16:00 Dose: 110 mls Documented by: Meropenem (Merrem 500 Mg/100 Ml Ns Ivpb) 500 mg in 100 mls @ 100 mls/hr IV Q12H [facility] Last Admin: 10/30/20 03:00 Dose: 100 mls Documented by: Vancomycin HCl 500 mg/ Sodium (Chloride) 100 mls @ 100 mls/hr IVPB AFTER EACH DIALYSIS [facility] Last Admin: 10/29/20 23:10 Dose: 100 mls Documented by: Midodrine (Midodrine Hcl 5 Mg Tablet) 5 mg PO EVERY HD [facility] Morphine Sulfate (Morphine 2 Mg/Ml Syr) 2 mg IV Q4H PRN PRN Reason: Pain scale 5-7 (Moderate) Sodium Chloride (Flush Normal Saline 10 Ml) 10 ml IV BID [facility] Last Admin: 10/30/20 08:35 Dose: 10 ml Documented by: Tamsulosin HCl (Tamsulosin 0.4 Mg Sr Cap) 0.4 mg PO DAILY [facility] Last Admin: 10/30/20 08:33 Dose: 0.4 mg Documented by: Temp Pulse Resp BP Pulse Ox 96.7 F L 57 20 125/62 92 10/30/20 08:00 10/30/20 08:00 10/30/20 08:00 10/30/20 08:00 10/30/20 08:00 Assessment And Plan - Plan General: Alert, In no apparent distress HEENT: Atraumatic, Normocephalic Neck: Supple, 2+ carotid pulse no bruit Respiratory: Diminished Cardiovascular: No edema, Normal pulses, Regular rate/rhythm Capillary refill: <2 Seconds Gastrointestinal: Normal bowel sounds, Non-distended Musculoskeletal: No clubbing, No swelling, No contractures Integumentary: No rashes, No breakdown, No significant lesion Conclusions/Impression: Antibiotics: Meropenem start: 10/23 Stop: -- Vancomycin start: 10/23 Stop: -- Assessment: -COVID 19 pneumonia -diffuse proliferative glomerular nephritis with CKD -CKD stage 4 -anemia Plan: -continue dexamethasone and ivermectin. Continue oxygen supplementation. Chest x-ray shows bilateral pulmonary opacities, pulmonary on board. Patient has decreased O2 stats ED on high-flow oxygen. Tachycardia likely attributed to all decrease O2 stats. -patient's is immunocompromised due to history chemotherapy/immunosuppressive drug use due to glomerular nephritis. Continue to monitor closely for any signs or symptoms of infection. Patient was empirically started on meropenem and vancomycin. Continue to monitor vanc trough level. Goal between 5-10. -Blood cultures taken on 10/22: Negative. Repeat blood cultures on 10/28: negative. Procal elevated however is downtrending. Continue broad-spectrum an tibiotic coverage. Patient is on steroids. -patient is a dialysis this . Antibiotics renally dosed. Kidney biopsy planned for this Tuesday. -medical management per primary team -continue monitor CBC and BMP -continue monitor for signs infection Plan of care discussed with Dr. Holland. Thank you for consultation. Physician Review: Patient Assessed, Agree with Above Assessment and Plan
--- NOTE | 2020-10-30 11:00 | P.PN ---
Subjective Date of Service: 10/31/20 Chief Complaint: cough , SOB Subjective: No new changes No c/o of inc SOB. Physical Examination - Vital Signs Temperature: 96.7 F Blood Pressure: 125/62 Pulse: 57 Respirations: 20 Pulse Ox (%): 92 - Physical Exam General: Mild distress HEENT: Atraumatic Neck: Supple Cardiovascular: No rubs, No murmurs Gastrointestinal: Soft and benign, Non-distended Assessment And Plan - Plan # SCAR ? 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; was on dialysis; now on MMF but currently on hold 2/2 PNA Last HD received in April 2020 Current SCAR DDx: prerenal/ATN, PIGN flare, CRS1 Renal US unremarkable F/u serologies for GN ASA on hold since 10/24/20 Hold off renal bx this Tue d/t covid infection; plan bx in 1-2 wks HD started on 10/24; received HD yesterday; next HD tomorrow HD access: permcath Monitor renal panel # PIGN MMF on hold d/t PNA KBx in 1-2 wks # BPH Hx of prostate Ca s/p radiotx Cont flomax # Hypotension suspect from autonomic neuropathy aggravated by sepsis BP stable Hx of Htn TSH& serum B12 wnl Cont midodrine 5 mg po bid Epogen to help inc BP # COVID PNA Mngt per other services # Anemia Tsat low at 13% - defer IV iron therapy d/t acute infection B12 & folate not low TSH wnl Cont epogen # Acidosis Correction via HD # Hypocalcemia Improved Correction via HD & Ca supplement, & calcitriol F/u 25OHD # HyperPO4 On Ca binder # Secondary hyperPTH Cont calcitriol F/u 25OHD Physician Review: Patient Assessed, Agree with Above Assessment and Plan
--- NOTE | 2020-10-30 12:28 | P.PN ---
Subjective Date of Service: 10/30/20 Chief Complaint: cough , SOB Patient remain on high-flow oxygen. Physical Examination - Vital Signs Temperature: 96.7 F Blood Pressure: 125/62 Pulse: 57 Respirations: 20 Pulse Ox (%): 92 - Physical Exam General: Alert, In no apparent distress Neck: JVD not distended Respiratory: Other (Nonlabored breathing) Cardiovascular: No edema, Regular rate/rhythm, Normal S1 S2 Gastrointestinal: Soft and benign, Non-distended Musculoskeletal: No swelling Neurological: Normal strength at 5/5 x4 extr Assessment And Plan Physician Review: Patient Assessed, Agree with Above Assessment and Plan Physician Review Additional Text: Problem List acute hypoxemic respiratory failure secondary to Covid 19 pneumonia Presumed left base community-acquired pneumonia NSTEMI Hypotension SCAR on CKD4, now requiring dialysis 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 -nephrology is following. Patient receiving hemodialysis. -patient on cellcept and immunocompromised, continue merrem and vanc, ID is following. -aspirin discontinued by nephrology - plan for biopsy on Tuesday -pulmonary is following. -Cardiology consulted for complain of chest pressure, elevated troponin, echocardiogram: Normal EF. troponin trended down. Elevated troponin likely secondary to demand ischemia. -continue home meds - holding antihypertensives due to soft blood pressure. -titrate oxygen. -will give convalescent plasma.
[2020-10-30] MEDS: CALCITROL 0.25 MCG CAP PO SCH (17:51)
[2020-10-30] MEDS: BENZONATATE 100 MG CAP PO PRN (21:41)
[2020-10-31 03:55] LABS: Absolute Lymphocytes (CBC) 0.1 K/uL (0.7-4.9); Basophils % 0.1 % (0-1.3); Hematocrit 29.2 % (39.6-49.0); Lymphocytes % 0.5 % (15.3-44.8); MPV 10.2 fL (7.6-11.3); RBC Red Blood Cell Count 3.31 M/uL (4.33-5.43)
[2020-10-31] MEDS: Meropenem 500 MG/100 ML BAG IV SCH ×2 (03:55→14:32)
[2020-10-31 04:14] LABS: Albumin 1.8 g/dL (3.4-5.0); Potassium 3.6 mmol/L (3.5-5.1)
[2020-10-31] MEDS: GUAIFENESIN 600 MG SA TAB PO SCH ×2 (08:33→20:50)
[2020-10-31] MEDS: dexAMETHasone 4 MG TAB PO SCH ×2 (08:33→20:51)
[2020-10-31] MEDS: FAMOTIDINE 20 MG TAB PO SCH ×2 (08:33→20:50)
[2020-10-31] MEDS: TAMSULOSIN 0.4 MG SR CAP PO SCH (08:34)
[2020-10-31] MEDS: ENOXAPARIN 80 MG/0.8 ML SQ SCH (08:34)
[2020-10-31] MEDS: allopurinoL 100 MG TAB PO SCH (08:34)
[2020-10-31] MEDS: NEPRO SHAKE 237 ML CAN PO SCH ×2 (08:34→20:51)
[2020-10-31] MEDS: SODIUM ZIRCONIUM CYCLOSILICATE PO SCH (08:35)
--- NOTE | 2020-10-31 10:01 | P.PN ---
Subjective Date of Service: 10/31/20 Chief Complaint: cough , SOB Reports no worsening SOB. Physical Examination - Vital Signs Temperature: 96.8 F Blood Pressure: 111/60 Pulse: 68 Respirations: 20 Pulse Ox (%): 88 Assessment And Plan - Plan # SCAR ? 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; was on dialysis; now on MMF but currently on hold 2/2 PNA Last HD received in April 2020 Current SCAR DDx: prerenal/ATN, PIGN flare, CRS1 Renal US unremarkable F/u serologies for GN, so far neg ASA on hold since 10/24/20 Hold off renal bx d/t covid infection; plan bx in 1-2 wks HD started on 10/24; cont HD MWF HD today to move for tomorrow d/t dialysis staffing HD [facility]: [facility] [place] Monitor renal panel # PIGN MMF on hold d/t PNA KBx in 1-2 wks # BPH Hx of prostate Ca s/p radiotx Cont flomax # Hypotension suspect from autonomic neuropathy aggravated by sepsis BP stable Hx of Htn TSH& serum B12 wnl Cont midodrine 5 mg po bid Epogen to help inc BP # COVID PNA Mngt per other services # Anemia Tsat low at 13% - defer IV iron therapy d/t acute infection B12 & folate not low TSH wnl Cont epogen # Acidosis Correction via HD # Hypocalcemia Improved Correction via HD & Ca supplement, & calcitriol & D suppl Start D3 suppl as below # HyperPO4 Phos now at goal Cont binder # Secondary hyperPTH Cont calcitriol 25OHD 19, low, start D3 5000 IU po daily Physician Review: Patient Assessed, Agree with Above Assessment and Plan
--- NOTE | 2020-10-31 10:55 | P.PN ---
Subjective Date of Service: 10/31/20 Chief Complaint: cough , SOB Patient seen examined at bedside, still utilizing high-flow oxygen. Review of Systems 10-point ROS is otherwise unremarkable Physical Examination - Vital Signs Temperature: 96.8 F Blood Pressure: 111/60 Pulse: 68 Respirations: 20 Pulse Ox (%): 88 - Studies Laboratory Last Values WBC 8.10 K/uL (4.3-10.9) 10/22/20 12:45 RBC 3.60 M/uL (4.33-5.43) L 10/22/20 12:45 Hgb 9.8 g/dL (13.6-17.9) L 10/22/20 12:45 Hct 31.4 % (39.6-49.0) L 10/22/20 12:45 MCV 87.4 fL (80-100) D 10/22/20 12:45 MCH 27.1 pg (27.0-35.0) 10/22/20 12:45 MCHC 31.0 g/dL (32.0-36.0) L 10/22/20 12:45 RDW 15.5 % (12.1-15.2) H 10/22/20 12:45 Plt Count 209 K/uL (152-406) 10/22/20 12:45 MPV 8.9 fL (7.6-11.3) 10/22/20 12:45 Neutrophils % 89.2 % (41.7-73.7) H 10/22/20 12:45 Lymphocytes % 3.5 % (15.3-44.8) L 10/22/20 12:45 Monocytes % 7.0 % (3.3-12.3) 10/22/20 12:45 Eosinophils % 0.0 % (0-4.4) 10/22/20 12:45 Basophils % 0.3 % (0-1.3) 10/22/20 12:45 Absolute Neutrophils 7.3 K/uL (1.8-8.0) 10/22/20 12:45 Absolute Lymphocytes 0.3 K/uL (0.7-4.9) L 10/22/20 12:45 Absolute Monocytes 0.6 K/uL (0.1-1.3) 10/22/20 12:45 Absolute Eosinophils 0.0 K/uL (0-0.5) 10/22/20 12:45 Absolute Basophils 0.0 K/uL (0-0.5) 10/22/20 12:45 Platelet Estimate Adeq 10/22/20 12:45 Morphology Comment Not seen (NOT SEEN) 10/22/20 12:45 Sodium 140 mmol/L (136-145) 10/22/20 12:45 Potassium 4.2 mmol/L (3.5-5.1) 10/22/20 12:45 Chloride 108 mmol/L (98-107) H 10/22/20 12:45 Carbon Dioxide 15 mmol/L (21-32) L 10/22/20 12:45 BUN 96 mg/dL (7-18) H 10/22/20 12:45 Creatinine 6.01 mg/dL (0.55-1.3) H* 10/22/20 12:45 Estimated GFR 9 mL/min (=/>90) L 10/22/20 12:45 Glucose 102 mg/dL (74-106) 10/22/20 12:45 Lactic Acid 1.0 mmol/L (0.4-2.0) 10/22/20 12:48 Calcium 7.0 mg/dL (8.5-10.1) L 10/22/20 12:45 Procalcitonin 0.39 ng/mL (<0.050) H 10/22/20 12:45 Influenza Type A RNA Negative (NEGATIVE) 10/22/20 12:38 Influenza Type B RNA Negative (NEGATIVE) 10/22/20 12:38 SARS-CoV-2 RNA (RT-PCR) Positive (NEGATIVE) A 10/22/20 12:38 Smear Scan Ok (OK) 10/22/20 12:45 Temp Pulse Resp BP Pulse Ox 96.8 F 68 20 111/60 88 L 10/31/20 10:01 10/31/20 10:01 10/31/20 10:01 10/31/20 10:01 10/31/20 10:01 Assessment And Plan - Plan General: Alert, In no apparent distress HEENT: Atraumatic, Normocephalic Neck: Supple, 2+ carotid pulse no bruit Respiratory: Diminished Cardiovascular: No edema, Normal pulses, Regular rate/rhythm Capillary refill: <2 Seconds Gastrointestinal: Normal bowel sounds, Non-distended Musculoskeletal: No clubbing, No swelling, No contractures Integumentary: No rashes, No breakdown, No significant lesion Conclusions/Impression: Antibiotics: Meropenem start: 10/23 Stop: -- Vancomycin start: 10/23 Stop: -- Assessment: -COVID 19 pneumonia -diffuse proliferative glomerular nephritis with CKD -CKD stage 4 -anemia Plan: -continue dexamethasone. Continue oxygen supplementation. Chest x-ray shows bilateral pulmonary opacities, pulmonary on board. Patient has decreased O2 stats ED on high-flow oxygen. -patient's is immunocompromised due to history chemotherapy/immunosuppressive drug use due to glomerular nephritis. Continue to monitor closely for any signs or symptoms of infection. Patient was empirically started on meropenem and vancomycin. Continue to monitor vanc trough level. Goal [id number]. -Blood cultures taken on 10/22: Negative. Repeat blood cultures on 10/28: negative. Procal elevated however is downtrending. Continue broad-spectrum antibiotic coverage. Patient is on steroids. -patient is a dialysis this . Antibiotics renally dosed. Kidney biopsy planned for this Tuesday--canceled. -medical management per primary team -continue monitor CBC and BMP -continue monitor for signs infection Plan of care discussed with Dr. Holland. Thank you for consultation. Physician Review: Patient Assessed, Agree with Above Assessment and Plan
--- NOTE | 2020-10-31 15:30 | P.PN ---
Subjective Date of Service: 10/31/20 Chief Complaint: cough , SOB Patient remain on high-flow oxygen. No changes from yesterday. Physical Examination - Vital Signs Temperature: 96.8 F Blood Pressure: 111/60 Pulse: 68 Respirations: 20 Pulse Ox (%): 88 - Physical Exam General: Other (Awake) HEENT: Other (High-flow oxygen) Respiratory: Other (Nonlabored breathing) Cardiovascular: No edema, Regular rate/rhythm, Normal S1 S2 Gastrointestinal: Soft and benign, Non-distended Musculoskeletal: No swelling Integumentary: No rashes Neurological: Other (No focal motor deficit) Assessment And Plan Physician Review: Patient Assessed, Agree with Above Assessment and Plan Physician Review Additional Text: Problem List acute hypoxemic respiratory failure secondary to Covid 19 pneumonia Presumed left base community-acquired pneumonia NSTEMI Hypotension 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 supplementation and zinc -nephrology is following. Patient receiving hemodialysis. -patient on cellcept and immunocompromised, continue merrem and vanc, ID is following. -aspirin discontinued by nephrology. -biopsied postponed to next week given patient has stable respiratory status. -pulmonary is following. -Cardiology saw patient for complain of chest pressure, elevated troponin, echo cardiogram: Normal EF. troponin trended down. Elevated troponin likely secondary to demand ischemia. -continue home meds - holding antihypertensives due to soft blood pressure. -convalescent plasma is no more available.
[2020-10-31] MEDS: VITAMIN D 5,000 UNIT CAP PO SCH (16:12)
[2020-10-31] MEDS: BENZONATATE 100 MG CAP PO PRN (20:51)
[2020-11-01] MEDS: Meropenem 500 MG/100 ML BAG IV SCH ×2 (03:00→14:48)
[2020-11-01 04:06] LABS: Absolute Lymphocytes (CBC) 0.1 K/uL (0.7-4.9); Basophils % 0.1 % (0-1.3); Hematocrit 30.6 % (39.6-49.0); Lymphocytes % 1.5 % (15.3-44.8); RBC Red Blood Cell Count 3.51 M/uL (4.33-5.43)
[2020-11-01 04:27] LABS: Albumin 1.9 g/dL (3.4-5.0); C-Reactive Protein 27.1 mg/L (<3.00); Ferritin 561.4 ng/mL (26-388); Phosphorus 5.1 mg/dL (2.5-4.9)
[2020-11-01] MEDS: SOD FERRIC GLUC COMPLX/SUCROSE 125 MG in NA CHLORIDE 0.9% 100 ML IV SCH (08:45)
[2020-11-01] MEDS: SODIUM ZIRCONIUM CYCLOSILICATE PO SCH (09:00)
[2020-11-01] MEDS: ENOXAPARIN 80 MG/0.8 ML SQ SCH (09:00)
[2020-11-01] MEDS: TAMSULOSIN 0.4 MG SR CAP PO SCH (09:01)
[2020-11-01] MEDS: dexAMETHasone 4 MG TAB PO SCH ×2 (09:01→21:46)
[2020-11-01] MEDS: NEPRO SHAKE 237 ML CAN PO SCH ×2 (09:01→21:56)
[2020-11-01] MEDS: VITAMIN D 5,000 UNIT CAP PO SCH (09:01)
[2020-11-01] MEDS: FAMOTIDINE 20 MG TAB PO SCH ×2 (09:01→21:46)
[2020-11-01] MEDS: GUAIFENESIN 600 MG SA TAB PO SCH ×2 (09:01→21:45)
[2020-11-01] MEDS: allopurinoL 100 MG TAB PO SCH (09:01)
[2020-11-01] MEDS: CALCITROL 0.25 MCG CAP PO SCH (12:04)
--- NOTE | 2020-11-01 12:12 | P.PN ---
Subjective Date of Service: 11/01/20 Chief Complaint: cough , SOB Patient has no new complain Patient remain on high-flow oxygen. High-flow oxygen settings unchanged for several days. Physical Examination - Vital Signs Temperature: 97.2 F Blood Pressure: 110/50 Pulse: 94 Respirations: 18 Pulse Ox (%): 97 - Physical Exam General: Alert, In no apparent distress HEENT: Other (High-flow oxygen.) Neck: JVD not distended Respiratory: Other (Nonlabored breathing.) Cardiovascular: No edema, Regular rate/rhythm, Normal S1 S2 Gastrointestinal: Soft and benign, Non-distended Musculoskeletal: No swelling, No tenderness Integumentary: No rashes Neurological: Normal strength at 5/5 x4 extr, Cranial nerves 3-12 intact Assessment And Plan Physician Review: Patient Assessed, Agree with Above Assessment and Plan Physician Review Additional Text: Problem List acute hypoxemic respiratory failure secondary to Covid 19 pneumonia Presumed left base community-acquired pneumonia NSTEMI Hypotension 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 supplementation and zinc -patient on hemodialysis. -patient on cellcept and immunocompromised. He is on merrem and vanc due to be immunocompromised state. ID is following. -aspirin discontinued by nephrology. -kidney biopsy postponed to next week given patient has stable respiratory status. -pulmonary is following. -Cardiology saw patient for complain of chest pressure, elevated troponin, echocardiogram: Normal EF. troponin trended down. Elevated troponin likely secondary to demand ischemia. -continue home meds - holding antihypertensives due to soft blood pressure.
[2020-11-01] MEDS: VANCOMYCIN 500 MG in NA CHLORIDE 0.9% 100 ML IVPB SCH (18:59)
[2020-11-01] MEDS ORDERED: EPOETIN ALFA 4000 UNIT/1 ML VIAL SQ SCH (19:00)
[2020-11-01] MEDS ORDERED: VANCOMYCIN 500 MG/VIAL ONE (19:12)
[2020-11-01] MEDS ORDERED: NA CHLORIDE 0.9% 100 ML ONE (19:14)
--- NOTE | 2020-11-01 19:59 | PN ---
Date of Progress Note: 11/01/2020 Chief Complaint: Acute kidney injury on chronic kidney disease. History Of Present Illness: Previously, the patient was on dialysis due to rapidly progressive glome rulonephritis. Subsequently, he was taken off dialysis. He was treated for pauci-immune glomerulone phritis. Currently, he is on MMF. When he developed pneumonia, MMF was stopped. The patient is sta rted on dialysis and received previously dialysis in 2019. Review of Systems: Denies fever or chills. Physical Examination: Lungs: Diminished breath sounds at bases. Heart: S1, S2. Abdomen: Soft, benign. Extremities: Slight edema. Impression And Plan: 1.Acute kidney injury. The patient required dialysis. Continue dialysis for metabolic clearance. The patient was started on dialysis on October 24. Continue treatment with dialysis on Tuesday, , Tuesday. The patient has PermCath for dialysis access. 2.Pauci-immune glomerulonephritis. MMF on hold due to pneumonia. Plan to re-evaluate with kidney b iopsy in 2 weeks to accept the need for treatment. 3.Benign prostatic hyperplasia and history of prostate cancer. Continue Flomax. 4.Hypertension. Continue blood pressure medication. Currently, the patient required midodrine for blood pressure support. 5.Hypotensive episode due to autonomic neuropathy and accelerated by sepsis. 6.Anemia in chronic kidney disease. Continue LINDY. EB/MODL Voice ID: [id number] Report ID: [id number]
[2020-11-02] MEDS: Meropenem 500 MG/100 ML BAG IV SCH ×2 (03:04→15:39)
[2020-11-02 04:19] LABS: Phosphorus 4.2 mg/dL (2.5-4.9); Potassium 4.5 mmol/L (3.5-5.1)
[2020-11-02] MEDS: SODIUM ZIRCONIUM CYCLOSILICATE PO SCH (07:37)
[2020-11-02] MEDS: VITAMIN D 5,000 UNIT CAP PO SCH (09:03)
[2020-11-02] MEDS: dexAMETHasone 4 MG TAB PO SCH ×2 (09:03→20:23)
[2020-11-02] MEDS: FAMOTIDINE 20 MG TAB PO SCH ×2 (09:03→20:23)
[2020-11-02] MEDS: allopurinoL 100 MG TAB PO SCH (09:03)
[2020-11-02] MEDS: GUAIFENESIN 600 MG SA TAB PO SCH ×2 (09:04→20:23)
[2020-11-02] MEDS: TAMSULOSIN 0.4 MG SR CAP PO SCH (09:04)
[2020-11-02] MEDS: ENOXAPARIN 80 MG/0.8 ML SQ SCH (09:04)
[2020-11-02] MEDS: NEPRO SHAKE 237 ML CAN PO SCH ×2 (09:04→20:23)
--- NOTE | 2020-11-02 15:15 | P.PN ---
Subjective Date of Service: 11/02/20 Chief Complaint: cough , SOB Patient has no new complain. No major changes from yesterday. Patient remain on high-flow oxygen. Unable to wean from 100% FiO2. Physical Examination - Vital Signs Temperature: 97.6 F Blood Pressure: 108/54 Pulse: 99 Respirations: 20 Pulse Ox (%): 89 - Physical Exam General: Alert, In no apparent distress Neck: JVD not distended Respiratory: Other (Nonlabored breathing) Cardiovascular: No edema, Regular rate/rhythm, Normal S1 S2 Gastrointestinal: Soft and benign, Non-distended Musculoskeletal: No swelling Integumentary: No rashes Neurological: Normal strength at 5/5 x4 extr Assessment And Plan Physician Review: Patient Assessed, Agree with Above Assessment and Plan Physician Review Additional Text: Problem List acute hypoxemic respiratory failure secondary to Covid 19 pneumonia Presumed left base community-acquired pneumonia NSTEMI Hypotension 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 supplementation and zinc -patient on hemodialysis. -patient on cellcept and immunocompromised. He is on merrem and vanc due to be immunocompromised state. ID is following. -aspirin discontinued by nephrology. -kidney biopsy postponed to next week given patient has stable respiratory status. -pulmonary is following. -Cardiology saw patient for complain of chest pressure, elevated troponin, echocardiogram: Normal EF. troponin trended down. Elevated troponin likely secondary to demand ischemia. -continue home meds - holding antihypertensives due to soft blood pressure. -startling Eliquis to carpal COVID induced hypercoagulability.
[2020-11-02] MEDS: APIXABAN 5 MG TABLET PO SCH (20:23)
--- NOTE | 2020-11-03 00:47 | PN ---
Date of Progress Note: 11/01/2020 Chief Complaint: Acute on chronic kidney injury. Subjective: The patient previously was on dialysis due to acute kidney injury secondary to rapidly progressive glomerulonephritis. Subsequently, he was taken off dialysis when the renal function has improved. The patient was treated for pauci-immune glomerulonephritis. Currently, he was treated with MMF, although due to COVID pneumonia, MMF was stopped. The patient was started on dialysis for metabolic clearance and to control volemia. Review of Systems: The patient denies fever or chills. Physical Examination: Lungs: Diminished breath sounds at base. Heart: S1, S2. Abdomen: Soft, benign. Extremities: Slight edema. Impression And Plan: 1. Acute on chronic kidney injury. The patient required dialysis. Continue dialysis for metabolic clearance. The patient will continue dialysis . The patient has PermCath for dialysis access. 2. Pauci-immune glomerulonephritis. MMF on hold due to COVID pneumonia. Plan is to re-evaluate kidney biopsy, re-evaluation, and need for treatment with immunosuppressive medication. 3. Benign prostatic hyperplasia. Continue Flomax. 4. Hypertension. Blood pressure controlled. Continue midodrine for blood pressure support during dialysis. Monitor blood pressure. Adjust medication. 5. Hypotensive episodes due to autonomic neuropathy and accelerated by sepsis. Continue antibiotics. 6. Anemia due to chronic kidney disease. Continue LINDY. SULTANA/BRIGIDA Voice ID: [id number] Report ID: [id number] MTDD
[2020-11-03] MEDS: Meropenem 500 MG/100 ML BAG IV SCH ×2 (02:01→15:06)
[2020-11-03 04:40] LABS: Albumin 1.9 g/dL (3.4-5.0); Phosphorus 4.7 mg/dL (2.5-4.9); Potassium 4.4 mmol/L (3.5-5.1)
[2020-11-03 04:46] LABS: Absolute Lymphocytes (CBC) 0.1 K/uL (0.7-4.9); Basophils % 0.2 % (0-1.3); Hematocrit 28.5 % (39.6-49.0); MPV 10.8 fL (7.6-11.3); RBC Red Blood Cell Count 3.23 M/uL (4.33-5.43)
[2020-11-03] MEDS: FAMOTIDINE 20 MG TAB PO SCH ×2 (07:46→21:09)
[2020-11-03] MEDS: GUAIFENESIN 600 MG SA TAB PO SCH ×2 (07:46→21:09)
[2020-11-03] MEDS: VITAMIN D 5,000 UNIT CAP PO SCH (07:46)
[2020-11-03] MEDS: dexAMETHasone 4 MG TAB PO SCH (07:47)
[2020-11-03] MEDS: NEPRO SHAKE 237 ML CAN PO SCH ×2 (07:47→21:00)
[2020-11-03] MEDS: TAMSULOSIN 0.4 MG SR CAP PO SCH (07:47)
[2020-11-03] MEDS: allopurinoL 100 MG TAB PO SCH (07:47)
[2020-11-03] MEDS: APIXABAN 5 MG TABLET PO SCH ×2 (07:47→21:09)
[2020-11-03] MEDS: SODIUM ZIRCONIUM CYCLOSILICATE PO SCH (07:48)
[2020-11-03 08:16] LABS: Blood Morphology Comment NOT SEEN (NOT SEEN); Platelet Estimate ADEQ
--- NOTE | 2020-11-03 11:17 | P.PN ---
Subjective Date of Service: 11/03/20 Chief Complaint: cough , SOB Patient seen examined at bedside, still utilizing high-flow oxygen. Denies any acute complaints. Review of Systems 10-point ROS is otherwise unremarkable Physical Examination - Vital Signs Temperature: 97.1 F Blood Pressure: 122/57 Pulse: 76 Respirations: 28 Pulse Ox (%): 91 - Studies Albuterol Sulfate (Albuterol 2.5 Mg/3 Ml Neb Lizbeth) 2.5 mg NEB [id number] PRN PRN Reason: SHORTNESS OF BREATH Last Admin: 10/23/20 08:40 Dose: 2.5 mg Documented by: Allopurinol (Allopurinol 100 Mg Tab) 100 mg PO DAILY [facility] Last Admin: 11/03/20 07:47 Dose: 100 mg Documented by: Apixaban (Apixaban 5 Mg Tablet) 5 mg PO BID [facility] Last Admin: 11/03/20 07:47 Dose: 5 mg Documented by: Benzonatate (Benzonatate 100 Mg Cap) 200 mg PO TID PRN PRN Reason: COUGH Last Admin: 10/31/20 20:51 Dose: 200 mg Documented by: Calcitriol (Calcitrol 0.25 Mcg Cap) 0.25 mcg PO Q48H [facility] Last Admin: 11/01/20 12:04 Dose: 0.25 mcg Documented by: Calcium Carbonate/Glycine (Calcium Carbonate Chew 500mg Tab) 500 mg PO QID PRN PRN Reason: INDIGESTION Cholecalciferol (Vitamin D 5,000 Unit Cap) 5,000 unit PO DAILY [facility] Last Admin: 11/03/20 07:46 Dose: 5,000 unit Documented by: Enteral Nutritional Formula (Nepro Shake 237 Ml Can) 237 ml PO BID [facility] Last Admin: 11/03/20 07:47 Dose: 237 ml Documented by: Famotidine (Famotidine 20 Mg Tab) 20 mg PO BID [facility]; Protocol Last Admin: 11/03/20 07:46 Dose: 20 mg Documented by: Guaifenesin (Guaifenesin 600 Mg Sa Tab) 1,200 mg PO BID [facility] Last Admin: 11/03/20 07:46 Dose: 1,200 mg Documented by: Heparin Sodium (Porcine) (Heparin 1,000 Unit/Ml Vial) 7,000 unit IV EVERY HD PRN PRN Reason: dialysis Last Admin: 11/01/20 11:36 Dose: 7,000 unit Documented by: Home Med (Sodium Zirconium Cyclosilicate [Lokelma]) 10 gm PO DAILY [facility] Last Admin: 11/03/20 07:48 Dose: Not Given Documented by: Ferric Sodium Gluconate Complex 125 mg/ Sodium Chloride 110 mls @ 100 mls/hr IV EVERY HD [facility] Last Admin: 11/01/20 08:45 Dose: 110 mls Documented by: Meropenem (Merrem 500 Mg/100 Ml Ns Ivpb) 500 mg in 100 mls @ 100 mls/hr IV Q12H [facility] Last Admin: 11/03/20 02:01 Dose: 100 mls Documented by: Vancomycin HCl 500 mg/ Sodium (Chloride) 100 mls @ 100 mls/hr IVPB AFTER EACH DIALYSIS [facility] Last Admin: 11/01/20 18:59 Dose: 100 mls Documented by: Midodrine (Midodrine Hcl 5 Mg Tablet) 5 mg PO EVERY HD [facility] Morphine Sulfate (Morphine 2 Mg/Ml Syr) 2 mg IV Q4H PRN PRN Reason: Pain scale 5-7 (Moderate) Sodium Chloride (Flush Normal Saline 10 Ml) 10 ml IV BID [facility] Last Admin: 11/03/20 07:47 Dose: 10 ml Documented by: Tamsulosin HCl (Tamsulosin 0.4 Mg Sr Cap) 0.4 mg PO DAILY [facility] Last Admin: 11/03/20 07:47 Dose: 0.4 mg Documented by: Temp Pulse Resp BP Pulse Ox 97.1 F 76 28 H 122/57 L 91 11/03/20 08:00 11/03/20 08:00 11/03/20 08:00 11/03/20 08:00 11/03/20 08:00 Assessment And Plan - Plan General: Alert, In no apparent distress HEENT: Atraumatic, Normocephalic Neck: Supple, 2+ carotid pulse no bruit Respiratory: Diminished Cardiovascular: No edema, Normal pulses, Regular rate/rhythm Capillary refill: <2 Seconds Gastrointestinal: Normal bowel sounds, Non-distended Musculoskeletal: No clubbing, No swelling, No contractures Integumentary: No rashes, No breakdown, No significant lesion Conclusions/Impression: Antibiotics: Meropenem start: 10/23 Stop: -- Vancomycin start: 10/23 Stop: -- Assessment: -COVID 19 pneumonia -diffuse proliferative glomerular nephritis with CKD -CKD stage 4 -anemia Plan: -continue dexamethasone. Continue oxygen supplementation. Chest x-ray shows bilateral pulmonary opacities, pulmonary on board. -patient's is immunocompromised due to history chemotherapy/immunosuppressive drug use due to glomerular nephritis. Continue to monitor closely for any signs or symptoms of infection. Patient was empirically started on meropenem and vancomycin. Continue to monitor vanc trough level. Goal -97. -Blood cultures taken on 10/22: Negative. Repeat blood cultures on 10/28: negative. Procal elevated however is downtrending. Continue broad-spectrum antibiotic coverage. Patient is on steroids. -patient is a dialysis this weekend. Antibiotics renally dosed. Kidney biopsy planned for this Tuesday--canceled. -medical management per primary team -continue monitor CBC and BMP -continue monitor for signs infection Plan of care discussed with Dr. Holland. Thank you for consultation. Physician Review: Patient Assessed, Agree with Above Assessment and Plan
[2020-11-03] MEDS: CALCITROL 0.25 MCG CAP PO SCH (12:09)
--- NOTE | 2020-11-03 16:36 | P.PN ---
Subjective Date of Service: 11/03/20 Chief Complaint: cough , SOB Patient has no new complain. No major changes from yesterday. Unable to wean from 100% FiO2, high-flow oxygen. Patient receiving hemodialysis. Physical Examination - Vital Signs Temperature: 97.6 F Blood Pressure: 122/58 Pulse: 67 Respirations: 32 Pulse Ox (%): 92 - Physical Exam General: Other (Awake, ) Neck: JVD not distended Respiratory: Other (Nonlabored breathing) Cardiovascular: No edema, Regular rate/rhythm, Normal S1 S2 Gastrointestinal: Soft and benign, Non-distended Musculoskeletal: No swelling Integumentary: No rashes Neurological: Other (No focal motor deficit.) Assessment And Plan Physician Review: Patient Assessed, Agree with Above Assessment and Plan Physician Review Additional Text: Problem List acute hypoxemic respiratory failure secondary to Covid 19 pneumonia Presumed left base community-acquired pneumonia NSTEMI Hypotension 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 supplementation and zinc -patient on hemodialysis. -patient on cellcept and immunocompromised. He is on merrem and vanc due to be immunocompromised state. ID is following. -kidney biopsy postponed from last week. I do not think patient is stable enough for biopsy. -Eliquis resumed to cover COVID induced hypercoagulability. -pulmonary is following. -Cardiology saw patient for complain of chest pressure, elevated troponin, echocardiogram: Normal EF. troponin trended down. Elevated troponin likely secondary to demand ischemia. -continue home meds - holding antihypertensives due to soft blood pressure.
--- NOTE | 2020-11-03 22:49 | PN ---
Date of Progress Note: 11/03/2020 Chief Complaint: Acute on chronic kidney injury. History Of Present Illness: The patient is dialysis dependent. He received dialysis on Tuesday. The patient has COVID pneumonia and has been treated with oxygen therapy. He is on high-flow oxygen therapy. Previously, the patient was treated with MMF for rapidly progressive glomerulonephritis and required dialysis for severe kidney failure due to pauci-immune glomerulonephritis. When renal function improved, the patient was taken off dialysis. During this admission, dialysis will resume for acute on chronic kidney injury. Review of Systems: Denies fever or chills. Physical Examination: Lungs: Few rhonchi. Heart: S1, S2. Abdomen: Soft, benign. Extremities: Slight edema. Impression And Plan: 1. Acute on chronic kidney injury. The patient is dialysis dependent. Continue dialysis on Tuesday, , and Tuesday. The patient has PermCath for dialysis access. 2. Pauci-immune glomerulonephritis. Previously on MMF. Currently MMF on hold due to COVID pneumonia. The patient had serology done for screen for vasculitis, ANCA test, and anti-GBM are negative. The patient is at this point is unstable for dialysis. The patient is transferred to ICU for oxygen therapy. 3. Benign prostatic hyperplasia. Continue Flomax. 4. Hypertension. Blood pressure controlled. The patient will have midodrine for blood pressure support during dialysis to prevent intradialytic hypotension. 5. Anemia due to chronic kidney disease. Continue LINDY. SULTANA/BRIGIDA Voice ID: [id number] Report ID: [id number] KRISTEL
[2020-11-03] MEDS: FUROSEMIDE 40 MG/4 ML VIAL IV SCH (22:59)
[2020-11-04] MEDS: Meropenem 500 MG/100 ML BAG IV SCH (03:16)
[2020-11-04 05:36] LABS: Albumin 2.1 g/dL (3.4-5.0); C-Reactive Protein 46.8 mg/L (<3.00); Ferritin 754.8 ng/mL (26-388); Phosphorus 4.9 mg/dL (2.5-4.9); Potassium 4.4 mmol/L (3.5-5.1)
[2020-11-04 07:25] LABS: Absolute Lymphocytes (CBC) 0.4 K/uL (0.7-4.9); Hematocrit 31.7 % (39.6-49.0); Lymphocytes % 1.8 % (15.3-44.8); MPV 10.8 fL (7.6-11.3); RBC Red Blood Cell Count 3.53 M/uL (4.33-5.43)
[2020-11-04] MEDS: GUAIFENESIN 600 MG SA TAB PO SCH ×2 (09:00→21:31)
[2020-11-04] MEDS: NEPRO SHAKE 237 ML CAN PO SCH ×2 (09:00→22:00)
[2020-11-04] MEDS: SODIUM ZIRCONIUM CYCLOSILICATE PO SCH (09:00)
[2020-11-04] MEDS: APIXABAN 5 MG TABLET PO SCH ×2 (09:02→21:31)
[2020-11-04] MEDS: FUROSEMIDE 40 MG/4 ML VIAL IV SCH ×2 (09:02→17:01)
[2020-11-04] MEDS: FAMOTIDINE 20 MG TAB PO SCH ×2 (09:02→21:31)
[2020-11-04] MEDS: TAMSULOSIN 0.4 MG SR CAP PO SCH (09:02)
[2020-11-04] MEDS: VITAMIN D 5,000 UNIT CAP PO SCH (09:03)
[2020-11-04] MEDS: allopurinoL 100 MG TAB PO SCH (09:03)
[2020-11-04] MEDS: BENZONATATE 100 MG CAP PO PRN ×2 (09:03→21:31)
--- NOTE | 2020-11-04 09:23 | RAD REPORT ---
EXAM DESCRIPTION: RAD - Chest Single View - 11/04/2020 9:14 am CLINICAL HISTORY: resp failure COMPARISON: October 28 TECHNIQUE: AP portable chest image was obtained 11/04/2020 9:14 am . FINDINGS: Dense airspace opacification has developed in the lateral right lung base. Interstitial an d alveolar opacities of the right upper lobe and the left lung field also progressive to a lesser deg ree. Trachea remains in the midline. Cardiac silhouette remains enlarged. Right-sided dialysis cathet er remains in place. No measurable pleural effusion and no pneumothorax. IMPRESSION: Significant worsening of the bilateral airspace opacities since the October 28 examination .
--- NOTE | 2020-11-04 11:17 | P.PN ---
Subjective Date of Service: 11/04/20 Chief Complaint: cough , SOB Patient seen examined at bedside, still utilizing high-flow oxygen. WBC summation today at 22.2. Repeat Procalamine CRP has been ordered along with repeat chest x-ray. Patient has been on vancomycin and meropenem since 10/23. Review of Systems 10-point ROS is otherwise unremarkable Physical Examination - Vital Signs Temperature: 98.0 F Blood Pressure: 104/42 Pulse: 93 Respirations: 36 Pulse Ox (%): 90 - Studies Temp Pulse Resp BP Pulse Ox 98.0 F 93 H 36 H 104/42 L 90 L 11/04/20 08:00 11/04/20 08:00 11/04/20 08:00 11/04/20 09:02 11/04/20 08:00 Laboratory Last Values WBC 8.10 K/uL (4.3-10.9) 10/22/20 12:45 RBC 3.60 M/uL (4.33-5.43) L 10/22/20 12:45 Hgb 9.8 g/dL (13.6-17.9) L 10/22/20 12:45 Hct 31.4 % (39.6-49.0) L 10/22/20 12:45 MCV 87.4 fL (80-100) D 10/22/20 12:45 MCH 27.1 pg (27.0-35.0) 10/22/20 12:45 MCHC 31.0 g/dL (32.0-36.0) L 10/22/20 12:45 RDW 15.5 % (12.1-15.2) H 10/22/20 12:45 Plt Count 209 K/uL (152-406) 10/22/20 12:45 MPV 8.9 fL (7.6-11.3) 10/22/20 12:45 Neutrophils % 89.2 % (41.7-73.7) H 10/22/20 12:45 Lymphocytes % 3.5 % (15.3-44.8) L 10/22/20 12:45 Monocytes % 7.0 % (3.3-12.3) 10/22/20 12:45 Eosinophils % 0.0 % (0-4.4) 10/22/20 12:45 Basophils % 0.3 % (0-1.3) 10/22/20 12:45 Absolute Neutrophils 7.3 K/uL (1.8-8.0) 10/22/20 12:45 Absolute Lymphocytes 0.3 K/uL (0.7-4.9) L 10/22/20 12:45 Absolute Monocytes 0.6 K/uL (0.1-1.3) 10/22/20 12:45 Absolute Eosinophils 0.0 K/uL (0-0.5) 10/22/20 12:45 Absolute Basophils 0.0 K/uL (0-0.5) 10/22/20 12:45 Platelet Estimate Adeq 10/22/20 12:45 Morphology Comment Not seen (NOT SEEN) 10/22/20 12:45 Sodium 140 mmol/L (136-145) 10/22/20 12:45 Potassium 4.2 mmol/L (3.5-5.1) 10/22/20 12:45 Chloride 108 mmol/L (98-107) H 10/22/20 12:45 Carbon Dioxide 15 mmol/L (21-32) L 10/22/20 12:45 BUN 96 mg/dL (7-18) H 10/22/20 12:45 Creatinine 6.01 mg/dL (0.55-1.3) H* 10/22/20 12:45 Estimated GFR 9 mL/min (=/>90) L 10/22/20 12:45 Glucose 102 mg/dL (74-106) 10/22/20 12:45 Lactic Acid 1.0 mmol/L (0.4-2.0) 10/22/20 12:48 Calcium 7.0 mg/dL (8.5-10.1) L 10/22/20 12:45 Procalcitonin 0.39 ng/mL (<0.050) H 10/22/20 12:45 Influenza Type A RNA Negative (NEGATIVE) 10/22/20 12:38 Influenza Type B RNA Negative (NEGATIVE) 10/22/20 12:38 SARS-CoV-2 RNA (RT-PCR) Positive (NEGATIVE) A 10/22/20 12:38 Smear Scan Ok (OK) 10/22/20 12:45 Assessment And Plan - Plan General: Alert, In no apparent distress HEENT: Atraumatic, Normocephalic Neck: Supple, 2+ carotid pulse no bruit Respiratory: Diminished Cardiovascular: No edema, Normal pulses, Regular rate/rhythm Capillary refill: <2 Seconds Gastrointestinal: Normal bowel sounds, Non-distended Musculoskeletal: No clubbing, No swelling, No contractures Integumentary: No rashes, No breakdown, No significant lesion Conclusions/Impression: Antibiotics: Meropenem start: 10/23 Stop: -- Vancomycin start: 10/23 Stop: -- Assessment: -COVID 19 pneumonia -diffuse proliferative glomerular nephritis with CKD -CKD stage 4 -anemia Plan: -continue dexamethasone. Continue oxygen supplementation. Chest x-ray shows bilateral pulmonary opacities, pulmonary on board. WBC spike on 11/04-repeat procalcitonin and CRP ordered along with repeat chest x-ray. -patient's is immunocompromised due to history chemotherapy/immunosuppressive drug use due to glomerular nephritis. Continue to monitor closely for any signs or symptoms of infection. Patient was empirically started on meropenem and vancomycin. Continue to monitor vanc trough level. Goal [id number]. -Blood cultures taken on 10/22: Negative. Repeat blood cultures on 10/28: negative. Continue broad-spectrum antibiotic coverage. Patient is on steroids. -patient is a dialysis this . Antibiotics renally dosed. Kidney biopsy planned for this Tuesday--canceled. -medical management per primary team -continue monitor CBC and BMP -continue monitor for signs infection Plan of care discussed with Dr. Holland. Thank you for consultation. Physician Review: Patient Assessed, Agree with Above Assessment and Plan
--- NOTE | 2020-11-04 12:26 | P.PN ---
Subjective Date of Service: 11/04/20 Chief Complaint: Respiratory failure Patient's condition is worsening x-ray looks worse despite being on broad- spectrum antibiotic doubt is sepsis most likely is shepherd virus pneumonia Review of Systems is unable to be obtained Physical Examination - Vital Signs Temperature: 98.0 F Blood Pressure: 104/42 Pulse: 93 Respirations: 36 Pulse Ox (%): 90 Assessment & Plan - Problems (Diagnosis) (1) Pneumonia due to coronavirus disease 2018 Current Visit: Yes Status: Acute Plan: Respiratory failure chest x-ray looks worse started back on steroid an Dc vancom ycin and meropenem doubt a sepsis renal function is slightly worse pro calcitonin level is low white count is mildly elevated prognosis poor still on 100% FiO2 Physician Review: Patient Assessed, Agree with Above Assessment and Plan
--- NOTE | 2020-11-04 12:58 | P.PN ---
Subjective Date of Service: 11/04/20 Chief Complaint: Respiratory failure Subjective: No new changes (no acute events overnight. patient reports feeling the same as yesterday, continues with SOB, still requiring FiO2 100% on HFNC) Review of Systems 10-point ROS is otherwise unremarkable Physical Examination - Vital Signs Temperature: 98.0 F Blood Pressure: 104/42 Pulse: 93 Respirations: 36 Pulse Ox (%): 90 Assessment & Plan Physician Review Additional Text: Physical Exam General: awake, NAD, laying in bed HEENT: normal conjunctiva, sclera anicteric Pulm: mild labored respirations on 100% FiO2 CV: No edema, Regular rate/rhythm, Normal S1 S2 Abd: soft, NTND Ext: no erythema, no rash Problem List Acute hypoxemic respiratory failure secondary to Covid 19 pneumonia Presumed left base community-acquired pneumonia NSTEMI Hypotension 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 supplementation and zinc -still requiring high levels of O2, wean as tolerated. Pulm following -CXR ordered for this morning -continue hemodialysis per nephrology -patient on cellcept and immunocompromised. He is on merrem and vanc due to be immunocompromised state. ID is following. Has received for ~2 weeks now. -kidney biopsy postponed from last week. Patient does not appear stable enough for biopsy. -Eliquis resumed on 11/02 to cover COVID induced hypercoagulability. -Cardiology saw patient for chest pressure, elevated troponin, echocardiogram: Normal EF. troponin trended down. [place] elevated troponin likely secondary to demand ischemia. -continue home meds - holding antihypertensives due to soft blood pressure. VTE: Eliquis Code: full Dispo: guarded prognosis, still requiring high levels of O2 supplementation Time Spent Managing Pts Care (In Minutes): 35
[2020-11-04 13:04] LABS: Blood Morphology Comment NOT SEEN (NOT SEEN); Platelet Estimate ADEQ
[2020-11-04 16:44] LABS: Arterial Blood Carboxyhemoglob 1.1 % (0-1.5); Blood Gas Oxyhemoglobin 86.5 % (94-97); Blood O2 Saturation 88.3 % (92-98.5)
[2020-11-04] MEDS: METHYLPREDNISOLONE 125 MG INJ IV SCH ×2 (17:01→21:30)
[2020-11-05] MEDS: FUROSEMIDE 40 MG/4 ML VIAL IV SCH ×3 (00:54→17:40)
--- NOTE | 2020-11-05 01:39 | PN ---
Date of Progress Note: 11/04/2020 Subjective: The patient was admitted with acute kidney injury, over volume, COVID pneumonia. Workup including the serology was negative. Unfortunately, because of the worsening respiratory status, we could not do kidney biopsy yet. The patient is still oliguric, dialysis dependent, over volume. Overnight has to be placed on BiPAP. Objective: Vital Signs: Blood pressure 104/58, pulse of 84. The patient had urine output of 600. Chest: Crackles bilateral with decreased entry on the right base. Heart: S1, S2. Systolic murmur. Abdomen: Soft, nontender. Extremities: No edema. Neurologic: Alert. No focality. Laboratory Data: WBC 22.2, H and H 9.8/31.7. Sodium 144, potassium 4.4, bicarb 29, BUN 93, creatinine 2.1, GFR of 30, calcium 7.8, phosphorus 4.9, ferrtien trending up. Albumin 2.1. Procalcitonin 0.1. Serology was negative. ANCA was negative. Hepatitis was negative. Current Medications: The patient on include, 1. Albuterol. 2. Midodrine 5 mg each dialysis. 3. Eliquis 5 mg b.i.d. 4. Calcium carbonate. 5. Lasix 40 q.8. 6. Pepcid. 7. Solu-Medrol 80 t.i.d. was started yesterday. 8. Allopurinol. 9. Cholecalciferol. 10. Calcitriol. Assessment And Plan: 1. Acute kidney injury secondary possible to RPGN questionable/cardiorenal, over volume. We will attempt another session of dialysis today. We will try to do daily dialysis with sequential. Try to establish better volume control for the patient and we will monitor closely. 2. Hypertension, currently hypotension. Keep using midodrine for blood pressure support. I am going to use sodium module and sequential with low temperature to establish better opportunity for ultrafiltration on the dialysis. 3. Pneumonia, possible secondary to superinfection pneumonia superimposed on COVID pneumonia. I am going to continue to follow up with Pulmonary, antibiotic has been discontinued. 4. Respiratory failure secondary to pneumonia/over volume. I am going to continue the patient on the daily dialysis, try to establish better volume control, and we will follow up the patient. 5. Congestive heart failure exacerbation, possible non-ST elevation GA. Continue current treatment. Follow up with Cardiology. BNP elevation, procalcitonin and leukocytosis, possible secondary to steroid. Seen by ID. We will follow up. Time spent discussing with the patient, examining the patient, [id number] with the patient, placing orders, discussing the case with our steam table attendant including nursing, discussing the case with the other subspecialty including Cardiology and hospitalist 35 minutes. MISSAEL Voice ID: [id number] Report ID: [id number] [email or web address]
[2020-11-05 05:05] LABS: Absolute Lymphocytes (CBC) 0.1 K/uL (0.7-4.9); Basophils % 0.2 % (0-1.3); Hematocrit 28.2 % (39.6-49.0); Lymphocytes % 0.6 % (15.3-44.8); MPV 10.6 fL (7.6-11.3); RBC Red Blood Cell Count 3.16 M/uL (4.33-5.43)
[2020-11-05 05:52] LABS: Albumin 1.8 g/dL (3.4-5.0); Ferritin 831.7 ng/mL (26-388); Phosphorus 6.2 mg/dL (2.5-4.9); Potassium 5.3 mmol/L (3.5-5.1)
--- NOTE | 2020-11-05 07:17 | RAD REPORT ---
EXAM DESCRIPTION: Clarisse Single View11/05/2020 6:15 am CLINICAL HISTORY: Respiratory failure COMPARISON: November 04, 2020 FINDINGS: No significant change in the diffuse bilateral pulmonary opacities. The heart remains enl arged. Central venous catheter in place IMPRESSION: No significant change in the diffuse bilateral pulmonary opacities
[2020-11-05] MEDS: SODIUM ZIRCONIUM CYCLOSILICATE PO SCH (09:00)
[2020-11-05] MEDS: NEPRO SHAKE 237 ML CAN PO SCH ×2 (09:00→20:34)
[2020-11-05] MEDS: allopurinoL 100 MG TAB PO SCH (09:16)
[2020-11-05] MEDS: METHYLPREDNISOLONE 125 MG INJ IV SCH ×3 (09:16→20:34)
[2020-11-05] MEDS: APIXABAN 5 MG TABLET PO SCH (09:16)
[2020-11-05] MEDS: FAMOTIDINE 20 MG TAB PO SCH ×2 (09:16→20:33)
[2020-11-05] MEDS: GUAIFENESIN 600 MG SA TAB PO SCH ×2 (09:17→20:33)
[2020-11-05] MEDS: TAMSULOSIN 0.4 MG SR CAP PO SCH (09:17)
[2020-11-05] MEDS: VITAMIN D 5,000 UNIT CAP PO SCH (09:17)
--- NOTE | 2020-11-05 12:05 | PN ---
Date of Progress Note: 11/05/2020 Subjective: The patient has shortness of breath. The patient is hypoxemic, being on BiPAP 100% in the last 24 hours. The patient had dialysis yesterday. We could not remove more than 600. Physical Examination: Vital Signs: Blood pressure 117/59, pulse of 89. Chest: Crackles bilateral. Heart: S1, S2. Systolic murmur. Abdomen: Soft, nontender. Extremity: Trace edema. Neuro: Alert. No focality. Laboratory Data: WBC 15.2, H and H 8.8/28.2. Sodium 144, potassium 5.3, bicarb 30, BUN 57, creatinine down to 1.9 and this is post-dialysis, calcium 8, phosphorus 6.2, ferritin trending up 831, albumin down to 1.8. Current Medications: The patient on include; 1. Midodrine 5 mg before each dialysis. 2. Albuterol. 3. Flomax. 4. IV iron. 5. Calcium carbonate. 6. Lasix 40 q.8. 7. Pepcid. 8. Solu-Medrol 80 t.i.d. 9. Allopurinol. 10. Vitamin D. 11. Calcitriol. Assessment And Plan: 1. Acute kidney injury on chronic kidney disease, doubt to be secondary to RPGN given the improvement in the creatinine without any adjusting in the immunosuppressive therapy. In fact, the patient off immunosuppressive therapy since admission. Also his serology being negative. Mostly, it is combined secondary to ATN and his COVID nephropathy, nonoliguric, over volume. I am going to do another session of sequential dialysis today, try to establish better volume control, and we will monitor. I am going to use increasing the midodrine before dialysis to establish better blood pressure for more ultrafiltration. 2. Hypertension, currently hypotension. We will continue to use p.r.n. midodrine. 3. Respiratory failure secondary to COVID pneumonia/pulmonary, renal. 4. Congestive heart failure. I am going to continue challenging the patient. Continue diuresis. 5. Anemia of iron deficiency anemia. Given the activity of COVID and elevation of the ferritin, I am going to back up on the IV iron to avoid worsening his infection. 6. Pneumonia. Continue current antibiotic. Time spent discussing with the patient, examining the patient, [id number] with the patient, placing orders, discussing the case with our steam pipe fitter including nursing, discussing the case with the other subspecialty including Cardiology and hospitalist 35 minutes. MISSAEL Voice ID: [id number] Report ID: [id number] [email or web address]
[2020-11-05] MEDS ORDERED: ALBUMIN HUMAN 25% 100 ML IV ONE (12:07)
[2020-11-05] MEDS: CALCITROL 0.25 MCG CAP PO SCH (12:30)
--- NOTE | 2020-11-05 12:32 | P.PN ---
Subjective Date of Service: 11/05/20 Chief Complaint: Respiratory failure Not doing well requiring high concentrations of oxygen still able to drink some Nepro scheduled to undergo dialysis blood pressure is low Review of Systems General: Weakness Respiratory: Shortness of Breath Physical Examination - Vital Signs Temperature: 98.6 F Blood Pressure: 117/59 Pulse: 89 Respirations: 32 Pulse Ox (%): 88 Assessment & Plan - Problems (Diagnosis) (1) Pneumonia due to coronavirus disease 2019 Current Visit: Yes Status: Acute Plan: Respiratory failure he is on FiO2 of 100% would gases show significant hypoxemia chest x-ray diffuse bilateral infiltrate blood pressures running low patient is anti coagulated antibiotics were discontinued yesterday prognosis poor patient is on Lasix Physician Review: Patient Assessed, Agree with Above Assessment and Plan
[2020-11-05] MEDS ORDERED: MIDODRINE HCL 5 MG TABLET ONE (12:47)
--- NOTE | 2020-11-05 15:46 | P.PN ---
Subjective Date of Service: 11/05/20 Chief Complaint: Respiratory failure Subjective: Worsening (reports feeling about the same, last night placed on BIPAP, unable to tolerate HFNC at this time. For dialysis today) Review of Systems 10-point ROS is otherwise unremarkable Physical Examination - Vital Signs Temperature: 98.6 F Blood Pressure: 117/59 Pulse: 89 Respirations: 32 Pulse Ox (%): 88 Assessment & Plan Physician Review Additional Text: Physical Exam General: awake, NAD, alert, oriented x2 HEENT: normal conjunctiva, sclera anicteric Pulm: mild labored respirations on 100% FiO2, BIPAP CV: No edema, Regular rate/rhythm, Normal S1 S2 Abd: soft, NTND Ext: no erythema, no rash Problem List Acute hypoxemic respiratory failure secondary to Covid 19 pneumonia Presumed left base community-acquired pneumonia NSTEMI Hypotension 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 supplementation and zinc -still requiring high levels of O2, wean as tolerated. Pulm following -CXR ordered for this morning, worsened yesterday -continue hemodialysis per nephrology -patient was on cellcept and immunocompromised. -received merrem and vanc for ~2 weeks, pulm discontinued on 11/04 -kidney biopsy postponed from last week. Patient does not appear stable enough for biopsy. -Eliquis resumed on 11/02 to cover COVID induced hypercoagulability. -Cardiology saw patient for chest pressure, elevated troponin, echocardiogram: Normal EF. troponin trended down. [place] elevated troponin likely secondary to demand ischemia. -continue home meds - holding antihypertensives due to soft blood pressure. VTE: Eliquis Code: full Dispo: guarded prognosis, still requiring high levels of O2 supplementation, now requiring BIPAP daughter updated on worsening condition, will be coming in from out of town Time Spent Managing Pts Care (In Minutes): 35
[2020-11-05] MEDS: APIXABAN 2.5 MG TABLET PO SCH (20:33)
[2020-11-06] MEDS: FUROSEMIDE 40 MG/4 ML VIAL IV SCH ×4 (00:22→23:47)
[2020-11-06 05:53] LABS: Albumin 2.5 g/dL (3.4-5.0); Bilirubin Total 0.4 mg/dL (0.2-1.0); Potassium 5.1 mmol/L (3.5-5.1); Protein, Total 6.6 g/dL (6.4-8.2)
[2020-11-06 05:59] LABS: Arterial Blood Carboxyhemoglob 0.7 % (0-1.5); Blood Gas Oxyhemoglobin 93.1 % (94-97); Blood O2 Saturation 94.9 % (92-98.5)
[2020-11-06 06:09] LABS: Absolute Lymphocytes (CBC) 0.2 K/uL (0.7-4.9); Basophils % 0.1 % (0-1.3); Hematocrit 28.6 % (39.6-49.0); Lymphocytes % 1.5 % (15.3-44.8); MPV 10.7 fL (7.6-11.3); RBC Red Blood Cell Count 3.19 M/uL (4.33-5.43)
--- NOTE | 2020-11-06 08:05 | P.PN ---
Subjective Date of Service: 11/06/20 Chief Complaint: Respiratory failure Subjective: No new changes Reports no worsening SOB. 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 - received CYC; was on dialysis; now on MMF but currently on hold 2/2 PNA Current SCAR DDx: prerenal/ATN, PIGN flare, CRS1 Repeat serologies for GN neg ASA on hold since 10/24/20 Hold off renal bx d/t covid infection No acute indication for HD today Has urinary retention w/ PVR bladder scan 234 cc CIC q8h HD access: permcath Monitor renal panel # PIGN MMF on hold d/t PNA KBx pending # BPH Hx of prostate Ca s/p radiotx Cont flomax # Hypotension suspect from autonomic neuropathy aggravated by sepsis BP stable Hx of Htn TSH& serum B12 wnl Cont midodrine Epogen to help inc BP # Respi failure 2/2 COVID PNA Mngt per other services # CHF Cont diuresis # Anemia Tsat low at 13% - defer IV iron therapy d/t acute infection B12 & folate not low TSH wnl Cont epogen # Hypocalcemia Improved Correction via HD & Ca supplement, & calcitriol & D suppl D3 suppl # HyperPO4 Phos now at goal Cont binder # Secondary hyperPTH Cont calcitriol 25OHD 19, low, cont D3 5000 IU po daily Physician Review: Patient Assessed, Agree with Above Assessment and Plan
[2020-11-06] MEDS: METHYLPREDNISOLONE 125 MG INJ IV SCH ×3 (08:55→19:54)
[2020-11-06] MEDS: APIXABAN 2.5 MG TABLET PO SCH ×2 (08:56→19:54)
[2020-11-06] MEDS: VITAMIN D 5,000 UNIT CAP PO SCH (08:56)
[2020-11-06] MEDS: FAMOTIDINE 20 MG TAB PO SCH ×2 (08:56→19:54)
[2020-11-06] MEDS: TAMSULOSIN 0.4 MG SR CAP PO SCH (08:56)
[2020-11-06] MEDS: allopurinoL 100 MG TAB PO SCH (08:56)
[2020-11-06] MEDS: GUAIFENESIN 600 MG SA TAB PO SCH ×2 (08:57→19:54)
[2020-11-06] MEDS: SODIUM ZIRCONIUM CYCLOSILICATE PO SCH (08:57)
[2020-11-06] MEDS: NEPRO SHAKE 237 ML CAN PO SCH ×2 (08:57→19:54)
[2020-11-06] MEDS ORDERED: ALBUMIN HUMAN 25% 100 ML IV ONE (11:12)
[2020-11-06] MEDS: MIDODRINE HCL 5 MG TABLET PO SCH (11:20)
[2020-11-06] MEDS ORDERED: NEPRO 1,000 ML BOT RTH SCH (13:00)
[2020-11-06] MEDS ORDERED: ALBUMIN HUMAN 25% 50 ML IV ONE (14:21)
--- NOTE | 2020-11-06 14:35 | P.PN ---
Subjective Date of Service: 11/06/20 Chief Complaint: Respiratory failure Subjective: No new changes (no significant changes, patient appears more fatigued today. remains on bIPAP 100% fio2. low oral intake, desats off BIPAP) Review of Systems 10-point ROS is otherwise unremarkable Physical Examination - Vital Signs Temperature: 97.7 F Blood Pressure: 105/49 Pulse: 76 Respirations: 29 Pulse Ox (%): 94 Assessment & Plan Physician Review Additional Text: Physical Exam General: awake, NAD, oriented x2, fatigued, slight confusion HEENT: normal conjunctiva, sclera anicteric Pulm: mild labored respirations on 100% FiO2, BIPAP CV: Regular rate/rhythm, Normal S1 S2 Abd: soft, NTND Ext: no erythema, no rash Problem List Acute hypoxemic respiratory failure secondary to Covid 19 pneumonia NSTEMI Hypotension 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 supplementation and zinc -still requiring high levels of O2, wean as tolerated. Pulm following -CXR with severe b/l opacities -continue hemodialysis per nephrology, to receive dialysis today -patient was on cellcept and immunocompromised. received merrem and vanc for ~2 weeks, pulm discontinued on 11/04 -kidney biopsy postponed from last week. Patient does not appear stable enough for biopsy. -Eliquis resumed on 11/02 to cover COVID induced hypercoagulability. -Cardiology saw patient for chest pressure, elevated troponin, echocardiogram: Normal EF. troponin trended down. [place] elevated troponin likely secondary to demand ischemia. -continue home meds - holding antihypertensives due to soft blood pressure. VTE: Eliquis Code: full Dispo: guarded prognosis, still requiring high levels of O2 supplementation, now requiring BIPAP family updated on clinical status Time Spent Managing Pts Care (In Minutes): 35
--- NOTE | 2020-11-06 19:48 | RAD REPORT ---
EXAM DESCRIPTION: RAD - Abdomen 1 View (KUB) - 11/06/2020 7:06 pm CLINICAL HISTORY: S/P DOBHOFF INSERTION COMPARISON: <Comparisons> FINDINGS: Motion degraded study shows feeding tube in place. Tip is in the gastric fundus. Bowel cannot be accurately assessed due to motion.
--- NOTE | 2020-11-07 05:21 | P.PN ---
Subjective Date of Service: 11/07/20 Chief Complaint: Respiratory failure Subjective: No new changes Reports no worsening SOB. 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 SCr improving today. Repeat PVR 120 cc. D/c CIC. Start PVR bladder scan q8h. Do in/out straight cath for PVR > 200 cc. HD access: permcath Monitor renal panel # PIGN MMF on hold d/t PNA KBx pending # BPH Hx of prostate Ca s/p radiotx Cont flomax # Hypotension suspect from autonomic neuropathy aggravated by sepsis BP stable Hx of Htn TSH& serum B12 wnl Cont midodrine Epogen to help inc BP # Respi failure 2/2 COVID PNA Mngt per other services # CHF Cont diuresis # Anemia Tsat low at 13% - defer IV iron therapy d/t acute infection B12 & folate not low TSH wnl Cont epogen # Hypocalcemia Improved Correction via HD & Ca supplement, & calcitriol & D suppl D3 suppl # HyperPO4 Phos now at goal Cont binder # Secondary hyperPTH Cont calcitriol 25OHD 19, low, cont D3 5000 IU po daily Physician Review: Patient Assessed, Agree with Above Assessment and Plan Physician Review Additional Text: Physical Exam General: awake, NAD, alert, oriented x2 HEENT: normal conjunctiva, sclera anicteric Pulm: mild labored respirations on 100% FiO2, BIPAP CV: No edema, Regular rate/rhythm, Normal S1 S2 Abd: soft, NTND Ext: no erythema, no rash Problem List Acute hypoxemic respiratory failure secondary to Covid 19 pneumonia Presumed left base community-acquired pneumonia NSTEMI Hypotension 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 supplementation and zinc -still requiring high levels of O2, wean as tolerated. Pulm following -CXR ordered for this morning, worsened yesterday -continue hemodialysis per nephrology -patient was on cellcept and immunocompromised. -received merrem and vanc for ~2 weeks, pulm discontinued on 11/04 -kidney biopsy postponed from last week. Patient does not appear stable enough for biopsy. -Eliquis resumed on 11/02 to cover COVID induced hypercoagulability. -Cardiology saw patient for chest pressure, elevated troponin, echocardiogram: Normal EF. troponin trended down. [place] elevated troponin likely secondary to demand ischemia. -continue home meds - holding antihypertensives due to soft blood pressure. VTE: Eliquis Code: full Dispo: guarded prognosis, still requiring high levels of O2 supplementation, now requiring BIPAP daughter updated on worsening condition, will be coming in from out of town
[2020-11-07 05:43] LABS: Absolute Lymphocytes (CBC) 0.1 K/uL (0.7-4.9); Basophils % 0.1 % (0-1.3); Hematocrit 27.8 % (39.6-49.0); Lymphocytes % 0.8 % (15.3-44.8); MPV 10.6 fL (7.6-11.3)
[2020-11-07 05:47] LABS: Albumin 2.8 g/dL (3.4-5.0); Magnesium 2.5 mg/dL (1.8-2.4); Phosphorus 6.1 mg/dL (2.5-4.9); Potassium 4.8 mmol/L (3.5-5.1)
[2020-11-07] MEDS: NEPRO SHAKE 237 ML CAN PO SCH ×2 (09:00→20:15)
[2020-11-07] MEDS: SODIUM ZIRCONIUM CYCLOSILICATE PO SCH (09:00)
[2020-11-07] MEDS: FAMOTIDINE 20 MG TAB PO SCH ×2 (09:31→20:14)
[2020-11-07] MEDS: VITAMIN D 5,000 UNIT CAP PO SCH (09:31)
[2020-11-07] MEDS: allopurinoL 100 MG TAB PO SCH (09:31)
[2020-11-07] MEDS: TAMSULOSIN 0.4 MG SR CAP PO SCH (09:31)
[2020-11-07] MEDS: GUAIFENESIN 600 MG SA TAB PO SCH ×2 (09:31→20:14)
[2020-11-07] MEDS: METHYLPREDNISOLONE 125 MG INJ IV SCH (09:31)
[2020-11-07] MEDS: FUROSEMIDE 40 MG/4 ML VIAL IV SCH ×2 (09:31→17:00)
[2020-11-07] MEDS: APIXABAN 2.5 MG TABLET PO SCH ×2 (09:31→20:14)
--- NOTE | 2020-11-07 11:54 | P.PN ---
Subjective Date of Service: 11/07/20 Chief Complaint: Respiratory failure Patient is improving oxygenation has improved now has Dobhoff Review of Systems General: Weakness Respiratory: Shortness of Breath Physical Examination - Vital Signs Temperature: 97.6 F Blood Pressure: 108/55 Pulse: 78 Respirations: 30 Pulse Ox (%): 97 - Physical Exam Other Physical/Emotional Findings: Physical exam not done d/t covid isolation Assessment & Plan - Problems (Diagnosis) (1) Pneumonia due to coronavirus disease 2019 Current Visit: Yes Status: Acute Plan: Patient admitted with pneumonia due to shepherd virus continue to titrate his O2 down patient has tube feeds labs reviewed white count is declining continue with steroids reduce dose of Solu-Medrol patient is on dialysis labs chest x-rays all reviewed Physician Review: Patient Assessed, Agree with Above Assessment and Plan
[2020-11-07] MEDS: CALCITROL 0.25 MCG CAP PO SCH (12:00)
[2020-11-07 13:09] LABS: Arterial Blood Carboxyhemoglob 0.8 % (0-1.5); Blood Gas Oxyhemoglobin 70.1 % (94-97); Blood O2 Saturation 71.2 % (92-98.5)
[2020-11-07] MEDS: METHYLPREDNISOLONE 40 MG INJ IV SCH ×2 (13:32→20:16)
--- NOTE | 2020-11-07 13:46 | P.PN ---
Subjective Date of Service: 11/07/20 Chief Complaint: Respiratory failure Subjective: Improving (feels slightly better this morning.) Physical Examination - Vital Signs Temperature: 97.1 F Blood Pressure: 101/46 Pulse: 74 Respirations: 25 Pulse Ox (%): 98 Assessment & Plan Physician Review: Patient Assessed, Agree with Above Assessment and Plan Physician Review Additional Text: Physical Exam General: awake, alert, oriented x2 HEENT: normal conjunctiva, sclera anicteric, dobhoff in place Pulm: nonlabored respirations on 100% FiO2, BIPAP CV: trace edema, Regular rate/rhythm, Normal S1 S2 Abd: soft, NTND Ext: no erythema, no rash Problem List Acute hypoxemic respiratory failure secondary to Covid 19 pneumonia NSTEMI Hypotension 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 supplementation and zinc -still requiring high levels of O2, wean as tolerated. Pulm following -continue hemodialysis per nephrology -patient was on cellcept and immunocompromised. received merrem and vanc for ~2 weeks, pulm discontinued on 11/04 -kidney biopsy postponed from last week. Patient does not appear stable enough for biopsy. Eliquis resumed on 11/02 to cover COVID induced hypercoagulability. -Cardiology saw patient for chest pressure, elevated troponin, echocardiogram: Normal EF. troponin trended down. [place] elevated troponin likely secondary to demand ischemia. -seems to be slightly improved today compared to yesterday VTE: Eliquis Code: full Dispo: guarded prognosis, still requiring high levels of O2 supplementation Time Spent Managing Pts Care (In Minutes): 35
[2020-11-08] MEDS: FUROSEMIDE 40 MG/4 ML VIAL IV SCH ×4 (00:31→17:00)
[2020-11-08 05:26] LABS: Absolute Lymphocytes (CBC) 0.1 K/uL (0.7-4.9); Basophils % 0.2 % (0-1.3); Hematocrit 27.2 % (39.6-49.0); Lymphocytes % 1.1 % (15.3-44.8); RBC Red Blood Cell Count 3.02 M/uL (4.33-5.43)
[2020-11-08 05:51] LABS: C-Reactive Protein 16.4 mg/L (<3.00); Magnesium 2.4 mg/dL (1.8-2.4); Potassium 4.7 mmol/L (3.5-5.1)
[2020-11-08 06:17] LABS: Ferritin 427.6 ng/mL (26-388)
[2020-11-08] MEDS: SODIUM ZIRCONIUM CYCLOSILICATE PO SCH (09:00)
[2020-11-08] MEDS: NEPRO SHAKE 237 ML CAN PO SCH ×2 (09:13→21:00)
[2020-11-08] MEDS: VITAMIN D 5,000 UNIT CAP PO SCH (09:13)
[2020-11-08] MEDS: TAMSULOSIN 0.4 MG SR CAP PO SCH (09:13)
[2020-11-08] MEDS: allopurinoL 100 MG TAB PO SCH (09:14)
[2020-11-08] MEDS: FAMOTIDINE 20 MG TAB PO SCH ×2 (09:14→20:11)
[2020-11-08] MEDS: METHYLPREDNISOLONE 40 MG INJ IV SCH ×3 (09:15→20:11)
[2020-11-08] MEDS: APIXABAN 2.5 MG TABLET PO SCH ×2 (09:15→20:11)
[2020-11-08] MEDS: GUAIFENESIN 600 MG SA TAB PO SCH ×2 (09:15→20:11)
--- NOTE | 2020-11-08 09:28 | P.PN ---
Subjective Date of Service: 11/08/20 Chief Complaint: Respiratory failure Subjective: Improving (feeling better today. Feels like he is breathing better. FiO2 down to 75% yesterday on BiPAP. Continues with intermittent straight cath due to urinary retention. CRP and ferritin trending down) Review of Systems 10-point ROS is otherwise unremarkable Physical Examination - Vital Signs Temperature: 97.9 F Blood Pressure: 157/64 Pulse: 91 Respirations: 28 Pulse Ox (%): 92 - Physical Exam Other Physical/Emotional Findings: Physical exam not done d/t covid isolation Assessment & Plan Physician Review: Patient Assessed, Agree with Above Assessment and Plan Physician Review Additional Text: Physical Exam General: awake, NAD, fatigued HEENT: normal conjunctiva, sclera anicteric, dobhoff in place, BIPAP Pulm: nonlabored respirations on 90% FiO2, BIPAP CV: trace edema, Regular rate/rhythm Abd: soft, NTND Ext: no erythema, no rash Problem List Acute hypoxemic respiratory failure secondary to Covid 19 pneumonia NSTEMI Hypotension 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 Pulm following -continue hemodialysis per nephrology -patient was on cellcept and immunocompromised. received merrem and vanc for ~2 weeks for concern of bacterial superinfection, pulm discontinued on 11/04 -kidney biopsy postponed - pt not stable enough. Eliquis resumed on 11/02 to cover COVID induced hypercoagulability. -Cardiology saw patient for chest pressure, elevated troponin, echocardiogram: Normal EF. troponin trended down. [place] elevated troponin likely secondary to demand ischemia. -slight improvement today -inflammatory markers downtrending -CXR tomorrow VTE: Eliquis Code: full Dispo: guarded prognosis, still requiring high levels of O2 supplementation Time Spent Managing Pts Care (In Minutes): 35
--- NOTE | 2020-11-08 11:43 | RAD REPORT ---
EXAM DESCRIPTION: RAD - Chest Single View - 11/08/2020 11:10 am CLINICAL HISTORY: COPD COMPARISON: November 05 TECHNIQUE: AP portable chest image was obtained 11/08/2020 11:10 am . FINDINGS: The extensive bilateral interstitial and airspace opacity seen on the November 05 study have significantly improved but not fully resolved. Right-sided double-lumen dialysis catheter is in place . Feeding tube is in place with the tip well below the diaphragm, off the field of view. Cardiomegaly remains. Vascular engorgement is present but improved. No measurable pleural effusion a nd no pneumothorax. No acute bony abnormality seen. No acute aortic findings suspected. IMPRESSION: Bilateral pulmonary edema or infiltrate pattern showing significant improvement since Ap . Cardiomegaly and mild vascular engorgement remain.
[2020-11-08] MEDS: MIDODRINE HCL 5 MG TABLET PO SCH (12:55)
[2020-11-08] MEDS ORDERED: ALBUMIN HUMAN 25% 50 ML IV SCH (13:00)
--- NOTE | 2020-11-08 16:33 | PN ---
Date of Progress Note: 11/08/2020 Subjective: The patient was admitted with the COVID pneumonia, respiratory failure, acute kidney injury secondary to cardiorenal. 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 Serology was negative. Kidney function has been improved without any immunosuppressive therapy. The patient is still requiring high FiO2. In the last couple of days, we have been doing daily dialysis. We managed to remove the 1500 yesterday. Physical Examination: Vital Signs: Blood pressure of 157/64, pulse of 91. Chest: Crackles bilateral. Heart: S1, S2. Systolic murmur. Abdomen: Soft, nontender. Extremities: No edema. Neurologic: Alert, no focality. Laboratory Data: WBC 11, H and H 8.1/27.2, sodium 137, potassium 4.7, bicarb 30, BUN 112, creatinine 3.4, calcium 7.6, magnesium 2.4, ferritin trend down 4.2. Current Medications: Include: 1. Albuterol. 2. Midodrine. 3. Eliquis 2.5. 4. Calcium carbonate. 5. Lasix 40 t.i.d. 6. Nepro. 7. Pepcid. 8. Solu-Medrol has been decreased to 40 t.i.d. 9. Allopurinol. 10. Calcitriol. Assessment And Plan: 1. Acute kidney injury secondary to cardiorenal, looked to me still on the over volume side. I am going to go ahead and arrange for another session of dialysis today. We will do sequential and we will monitor the patient. We will get chest x-ray for better evaluation of the fluid status. 2. Hypertension, currently hypotension. Continue midodrine before dialysis. 3. Anemia of chronic kidney disease. No need for LINDY. 4. Hyperkalemia, resolved. 5. Hypocalcemia, improving. 6. Acidosis secondary to renal failure, recovered. 7. Rapidly progressive glomerulonephritis, currently had the patient with pneumonia. We will hold off the immunosuppressive medication. 8. Respiratory failure, multifactorial, secondary to COVID pneumonia/cardio renal. We will try to establish better volume control with the dialysis. Continue current treatment. Follow up with Pulmonary. Continue BiPAP. Time spent discussing with the patient, examining the patient, [id number] with the patient, placing orders, discussing the case with our marine steamfitter including nursing, discussing the case with the other subspecialty including Cardiology and hospitalist 45 minutes. MISSAEL Voice ID: [id number] Report ID: [id number]
[2020-11-08] MEDS ORDERED: D50W 25 GM/50 ML SYRINGE IV PRN (16:41)
[2020-11-08] MEDS ORDERED: GLUCAGON 1 MG/VIAL IM PRN (16:41)
[2020-11-08] MEDS: INSULIN -REGULAR HUMAN 50 UNIT/0.5 ML ML SQ SCH (16:53)
[2020-11-08] MEDS: INSULIN GLARGINE 100 UNITS/ML SQ SCH (20:11)
[2020-11-08] MEDS: DOCUSATE NA 100 MG CAP PO SCH (20:11)
[2020-11-09] MEDS: FUROSEMIDE 40 MG/4 ML VIAL IV SCH ×2 (00:18→09:50)
[2020-11-09] MEDS: INSULIN -REGULAR HUMAN 50 UNIT/0.5 ML ML SQ SCH ×4 (00:19→18:34)
[2020-11-09 05:14] LABS: Absolute Lymphocytes (CBC) 0.1 K/uL (0.7-4.9); Basophils % 0.1 % (0-1.3); Hematocrit 27.4 % (39.6-49.0); Lymphocytes % 0.8 % (15.3-44.8); MPV 10.3 fL (7.6-11.3); RBC Red Blood Cell Count 3.05 M/uL (4.33-5.43)
[2020-11-09 05:31] LABS: C-Reactive Protein 8.28 mg/L (<3.00); Ferritin 366.5 ng/mL (26-388); Magnesium 2.4 mg/dL (1.8-2.4); Potassium 4.5 mmol/L (3.5-5.1)
[2020-11-09 06:15] LABS: Blood Morphology Comment NOT SEEN (NOT SEEN); Platelet Estimate DECR; White Blood Cell Scan OK (OK)
[2020-11-09] MEDS: SODIUM ZIRCONIUM CYCLOSILICATE PO SCH (09:00)
[2020-11-09] MEDS: NEPRO SHAKE 237 ML CAN PO SCH ×2 (09:00→20:16)
--- NOTE | 2020-11-09 09:31 | P.PN ---
Subjective Date of Service: 11/09/20 Chief Complaint: Respiratory failure Subjective: Other (feels about the same, +BM yesterday, tolerating tube feeds. desaturates quickly with movement) Review of Systems 10-point ROS is otherwise unremarkable Physical Examination - Vital Signs Temperature: 97.2 F Blood Pressure: 103/45 Pulse: 80 Respirations: 27 Pulse Ox (%): 92 - Physical Exam Other Physical/Emotional Findings: Physical exam not done d/t covid isolation Assessment & Plan Physician Review Additional Text: Physical Exam General: awake, NAD HEENT: normal conjunctiva, sclera anicteric, dobhoff in place, BIPAP Pulm: nonlabored respirations on 85%% FiO2, BIPAP CV: b/l trace edema, Regular rate/rhythm Abd: soft, NTND Ext: no erythema, no rash Problem List Acute hypoxemic respiratory failure secondary to Covid 19 pneumonia NSTEMI Hypotension 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 Pulm following -O2 requirement slightly improved -continue hemodialysis per nephrology -patient was on cellcept and immunocompromised. received merrem and vanc for ~2 weeks for concern of bacterial superinfection, pulm discontinued on 11/04 -initially planned for kidney biopsy, however was postponed due to decompensation. Eliquis resumed on 11/02 to cover COVID induced hypercoagulability. -Cardiology saw patient for chest pressure, elevated troponin, echocardiogram: Normal EF. troponin trended down. [place] elevated troponin likely secondary to demand ischemia. -inflammatory markers downtrending -CXR yesterday noted improvement in b/l opacities VTE: Eliquis Code: full Dispo: guarded prognosis, improving, still requiring high levels of O2 supplementation Time Spent Managing Pts Care (In Minutes): 35
[2020-11-09] MEDS: GUAIFENESIN 600 MG SA TAB PO SCH ×2 (09:49→20:16)
[2020-11-09] MEDS: TAMSULOSIN 0.4 MG SR CAP PO SCH (09:50)
[2020-11-09] MEDS: VITAMIN D 5,000 UNIT CAP PO SCH (09:50)
[2020-11-09] MEDS: METHYLPREDNISOLONE 40 MG INJ IV SCH ×3 (09:50→20:17)
[2020-11-09] MEDS: allopurinoL 100 MG TAB PO SCH (09:52)
[2020-11-09] MEDS: DOCUSATE NA 100 MG CAP PO SCH ×2 (09:52→20:16)
[2020-11-09] MEDS: APIXABAN 2.5 MG TABLET PO SCH ×2 (09:52→20:16)
--- NOTE | 2020-11-09 10:17 | P.PN ---
Subjective Date of Service: 11/09/20 Chief Complaint: Respiratory failure And is not doing well still requiring high concentrations of oxygen respiratory distress unable to wean off the BiPAP Review of Systems is unable to be obtained Physical Examination - Vital Signs Temperature: 97.2 F Blood Pressure: 93/47 Pulse: 88 Respirations: 27 Pulse Ox (%): 92 - Physical Exam Other Physical/Emotional Findings: Physical exam not done d/t covid isolation Assessment & Plan - Problems (Diagnosis) (1) Pneumonia due to coronavirus disease 2019 Current Visit: Yes Status: Acute Plan: Respiratory failure from shepherd virus prognosis poor still requiring high concentrations of oxygen patient is on Lasix blood pressure is slightly low on steroid hypoxic hypercapnic Physician Review: Patient Assessed, Agree with Above Assessment and Plan
[2020-11-09] MEDS ORDERED: D50W 25 GM/50 ML VIAL IV PRN (12:00)
[2020-11-09] MEDS: CALCITROL 0.25 MCG CAP PO SCH ×2 (12:46→12:48)
[2020-11-09] MEDS: MIDODRINE HCL 5 MG TABLET PO SCH ×2 (12:48→20:17)
[2020-11-09] MEDS: FAMOTIDINE 20 MG TAB PO SCH ×2 (12:49→20:16)
--- NOTE | 2020-11-09 15:07 | PN ---
Date of Progress Note: 11/09/2020 Subjective: The patient was admitted with COVID pneumonia, acute kidney injury secondary to cardiorenal. Serology was negative for activity of his pulmonary renal syndrome. The patient was started on dialysis because of worsening kidney function. Yesterday, we tried to do another session of dialysis. The patient could not tolerate it, blood pressure dropped. Physical Examination: Vital Signs: Blood pressure 93/47, pulse of 88, afebrile. The patient had urine output of 400. Chest: Crackles bilateral. Heart: S1, S2. Systolic murmur. Abdomen: Soft, nontender. Extremity: No edema. Neuro: Alert, oriented. No focality. Laboratory Data: WBC of 11.8, H and H 8.3/27.4. Sodium 141, potassium 4.5, bicarb 31, BUN 89, creatinine 2.5. Yesterday, creatinine before dialysis 3.4 with GFR of 18, calcium 8.5, magnesium 2.4. Ferritin is 360. Chest x-ray; cardiomegaly with interstitial infiltration. Current Medications: The patient on include; 1. Albuterol. 2. Midodrine before dialysis. 3. Eliquis. 4. Nepro. 5. Pepcid. 6. Allopurinol. 7. Calcitriol. Assessment And Plan: 1. Acute kidney injury, possible secondary to cardiorenal, still on the wet side. Given the difficulty tolerating dialysis and ultrafiltration of the kidney function before dialysis, GFR still above 18/20, I am going to go ahead and try to hold on the dialysis. We will start the patient on Lasix drip and we will follow up. 2. Hypertension, currently blood pressure on the lower side. Discontinue Lasix, place Lasix drip and start the patient on around the clock midodrine and we will follow up. I am going to go ahead and send for cortisol level. 3. Respiratory failure secondary to multifactorial, cardiorenal/COVID pneumonia. Follow up with Pulmonary. Continue BiPAP. Currently, the patient is on 85%. We will start Lasix drip. We will follow up. 4. Pauci-immune rapidly progressive glomerulonephritis. Keep holding immunosuppressive given the acute infection. 5. Acidosis, resolved. 6. Hypocalcemia secondary to secondary hyperparathyroidism. Continue calcitriol. Time spent discussing with the patient, examining the patient, [id number] with the patient, placing orders, discussing the case with our merchandise flow team member including nursing, discussing the case with the other subspecialty including Cardiology and hospitalist 35 minutes. MISSAEL Voice ID: [id number] Report ID: [id number] [id number]
[2020-11-09] MEDS: FUROSEMIDE 100 MG in NA CHLORIDE 0.9% 90 ML IV SCH ×2 (16:10→23:52)
[2020-11-09] MEDS: INSULIN GLARGINE 100 UNITS/ML SQ SCH (20:16)
[2020-11-10] MEDS: INSULIN -REGULAR HUMAN 50 UNIT/0.5 ML ML SQ SCH ×4 (00:06→17:14)
[2020-11-10 05:45] LABS: Albumin 2.6 g/dL (3.4-5.0); Phosphorus 5.2 mg/dL (2.5-4.9); Potassium 4.9 mmol/L (3.5-5.1)
[2020-11-10] MEDS: METHYLPREDNISOLONE 40 MG INJ IV SCH ×3 (08:47→20:25)
[2020-11-10] MEDS: GUAIFENESIN 600 MG SA TAB PO SCH ×2 (08:49→20:25)
[2020-11-10] MEDS: VITAMIN D 5,000 UNIT CAP PO SCH (08:50)
[2020-11-10] MEDS: APIXABAN 2.5 MG TABLET PO SCH ×2 (08:50→20:26)
[2020-11-10] MEDS: allopurinoL 100 MG TAB PO SCH (08:50)
[2020-11-10] MEDS: FAMOTIDINE 20 MG TAB PO SCH ×2 (08:50→20:26)
[2020-11-10] MEDS: TAMSULOSIN 0.4 MG SR CAP PO SCH (08:51)
[2020-11-10] MEDS: NEPRO SHAKE 237 ML CAN PO SCH ×2 (08:51→20:26)
[2020-11-10] MEDS: DOCUSATE NA 100 MG CAP PO SCH ×2 (08:51→20:25)
[2020-11-10] MEDS: MIDODRINE HCL 5 MG TABLET PO SCH ×2 (08:54→20:25)
[2020-11-10] MEDS: SODIUM ZIRCONIUM CYCLOSILICATE PO SCH (08:55)
[2020-11-10] MEDS: FUROSEMIDE 100 MG in NA CHLORIDE 0.9% 90 ML IV SCH ×2 (10:23→20:11)
--- NOTE | 2020-11-10 11:45 | P.PN ---
Subjective Date of Service: 11/10/20 Chief Complaint: Respiratory failure Subjective: Improving (feeling better, continues with tube feeds, no new complaints. some dyspnea/fatigue) Review of Systems 10-point ROS is otherwise unremarkable Physical Examination - Vital Signs Temperature: 97.0 F Blood Pressure: 128/56 Pulse: 81 Respirations: 22 Pulse Ox (%): 98 - Physical Exam Other Physical/Emotional Findings: Physical exam not done d/t covid isolation Assessment & Plan Physician Review Additional Text: Physical Exam General: awake, NAD HEENT: normal conjunctiva, sclera anicteric, dobhoff in place, BIPAP Pulm: nonlabored respirations on 90%% FiO2, BIPAP CV: Regular rate/rhythm Abd: soft, NTND Ext: no erythema, no rash Problem List Acute hypoxemic respiratory failure secondary to Covid 19 pneumonia NSTEMI Hypotension 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 Pulm following -hemodialysis per nephrology -patient was on cellcept and immunocompromised. received merrem and vanc for ~2 weeks for concern of bacterial superinfection, pulm discontinued on 11/04 -initially planned for kidney biopsy, however was postponed due to decompensat ion. Eliquis resumed on 11/02 to cover COVID induced hypercoagulability. -Cardiology saw patient for chest pressure, elevated troponin, echocardiogram: Normal EF. troponin trended down. [place] elevated troponin likely secondary to demand ischemia -inflammatory markers downtrending -overall seems to be improving slowly VTE: Eliquis Code: full Dispo: guarded prognosis, improving, still requiring high levels of O2 supplementation Time Spent Managing Pts Care (In Minutes): 35
[2020-11-10 15:07] LABS: Magnesium 2.4 mg/dL (1.8-2.4); Troponin I 0.09 ng/mL (0.0-0.045)
[2020-11-10] MEDS: INSULIN GLARGINE 100 UNITS/ML SQ SCH (20:26)
[2020-11-11] MEDS: INSULIN -REGULAR HUMAN 50 UNIT/0.5 ML ML SQ SCH ×4 (00:01→16:56)
--- NOTE | 2020-11-11 00:50 | PN ---
Date of Progress Note: 11/10/2020 Chief Complaint: Acute on chronic kidney injury. History Of Present Illness: The patient has history of pulmonary renal syndrome. He was previously on immunosuppressive medication. Currently, serology was negative for activity of pulmonary renal sy ndrome. The patient is admitted to the hospital for COVID pneumonia. He was found to have acute kid bro injury secondary to congestive heart failure, cardiorenal syndrome. He was started on dialysis. The patient currently is intubated in ICU. He has severe respiratory failure due to COVID pneumonia . Immunosuppressive medications were stopped due to the COVID pneumonia. Review of Systems: Unobtainable. Physical Examination: Lungs: Coarse breath sounds bilaterally. Heart: S1, S2. 2/6 systolic murmur at left lower sternal border. Abdomen: Soft, nontender. Extremities: No edema. Impression And Plan: 1.Acute kidney injury secondary to cardiorenal syndrome, nonoliguric acute tubular necrosis. The pa tient will have dialysis tomorrow, although the patient may be a candidate for CVVHD due to history o f hypotensive episode. Despite midodrine, the patient developed hypotensive episode. The patient to day has nonsustained ventricular tachycardia. I recommended to consult Cardiology. 2.Hypertension. Blood pressure on hold due to hypotension. Continue pressors as needed. The patie nt was started on Lasix drip. Monitor urine output. 3.Respiratory failure secondary to COVID pneumonia and cardiorenal syndrome. Overall prognosis is g uarded. EB/MODL Voice ID: [id number] Report ID: [id number]
[2020-11-11] MEDS: FUROSEMIDE 100 MG in NA CHLORIDE 0.9% 90 ML IV SCH ×2 (05:11→11:00)
[2020-11-11 05:13] LABS: Absolute Lymphocytes (CBC) 0.1 K/uL (0.7-4.9); Basophils % 0.2 % (0-1.3); Hematocrit 24.9 % (39.6-49.0); MPV 10.5 fL (7.6-11.3); RBC Red Blood Cell Count 2.81 M/uL (4.33-5.43)
[2020-11-11 05:35] LABS: Albumin 2.6 g/dL (3.4-5.0); Phosphorus 4.3 mg/dL (2.5-4.9); Potassium 4.9 mmol/L (3.5-5.1)
[2020-11-11] MEDS: GUAIFENESIN 600 MG SA TAB PO SCH ×2 (07:48→21:54)
[2020-11-11] MEDS: DOCUSATE NA 100 MG CAP PO SCH ×2 (07:48→21:53)
[2020-11-11] MEDS: allopurinoL 100 MG TAB PO SCH (07:48)
[2020-11-11] MEDS: APIXABAN 2.5 MG TABLET PO SCH ×2 (07:49→21:53)
[2020-11-11] MEDS: MIDODRINE HCL 5 MG TABLET PO SCH ×3 (07:49→21:52)
[2020-11-11] MEDS: FAMOTIDINE 20 MG TAB PO SCH ×2 (07:49→21:53)
[2020-11-11] MEDS: VITAMIN D 5,000 UNIT CAP PO SCH (07:49)
[2020-11-11] MEDS: TAMSULOSIN 0.4 MG SR CAP PO SCH (07:49)
[2020-11-11] MEDS: METHYLPREDNISOLONE 40 MG INJ IV SCH ×3 (07:50→21:53)
[2020-11-11] MEDS: NEPRO SHAKE 237 ML CAN PO SCH ×2 (07:50→21:00)
[2020-11-11] MEDS: SODIUM ZIRCONIUM CYCLOSILICATE PO SCH (07:51)
--- NOTE | 2020-11-11 11:27 | RAD REPORT ---
EXAM DESCRIPTION: RAD - Chest Single View - 11/11/2020 11:21 am CLINICAL HISTORY: COPD, shortness of breath COMPARISON: Portable November 08 TECHNIQUE: AP portable chest image was obtained 11/11/2020 11:21 am . FINDINGS: Patient is rotated compared to the prior study. Feeding tube remains in place with the tip near the gastric antrum. Double-lumen dialysis catheter is in place. Interstitial and alveolar opacities are present similar or slightly worse than the November 08 study. Cardiac silhouette is enlarged, accentuated by rotation. Atelectasis in the medial right base may be present. No measurable pleural effusion and no pneumothorax. No acute bony abnormality seen. No acut e aortic findings suspected. IMPRESSION: Bilateral interstitial and alveolar opacification similar or slightly worse than November 08 i
--- NOTE | 2020-11-11 11:27 | PN ---
Date of Progress Note: 11/11/2020 Subjective: The patient was admitted with COVID pneumonia, acute kidney injury. The patient was started on dialysis. The patient had desaturation, required BiPAP. Physical Examination: Vital Signs: Blood pressure 118/59, pulse of 101, afebrile. The patient had urine output of 800. The patient positive of 500. Chest: Crackles bilateral. Heart: S1, S2. Systolic murmur. Abdomen: Soft, nontender. Extremities: No edema. Neuro: Alert. Pleasantly confused. No focality. Laboratory Data: WBC 13.7, H and H 7.8/24.9, and platelets 127. Sodium 139, potassium 4.9, bicarb 30, BUN 160, creatinine 2.8, GFR 22, calcium 8.4, phosphorus 4.3, albumin 2.6. Corrected calcium is 9.4. Current Medications: The patient on include Lasix drip; midodrine 10 before dialysis, 5 b.i.d.; Flomax; Eliquis; calcium carbonate; Solu-Medrol 40 t.i.d.; allopurinol; calcitriol; cholecalciferol. Assessment And Plan: 1. Acute kidney injury, mostly secondary to cardiorenal. The patient had good urine output, nonoliguric, doubt to be as pulmonary renal given the improvement even with holding the immunosuppressive treatment. Serology was negative. The patient is not in any condition to repeat any kidney biopsy for the time being. I am going to go ahead and decrease Lasix drip to 5 mg. We will hold the Lasix drip during the dialysis and we will do session of dialysis today for clearance as BUN is high. We will resume Lasix after we will avoid ultrafiltration to avoid any low blood pressure during the dialysis. We will use midodrine as supportive measure for the blood pressure during the dialysis and okay to use albumin. 2. Hypertension, currently hypotension. Continue midodrine. 3. Anemia of chronic kidney disease with elevation in the ferritin. I am going to be hesitant to give any IV iron currently given the active inflammation and I am going to continue on the Epogen. We will transfuse today with dialysis. 4. Secondary hyperparathyroidism. Continue current treatment. 5. Respiratory failure secondary to COVID pneumonia/cardiorenal. I am going to go ahead and get chest x-ray today for better evaluation of the fluid status. We will continue Lasix drip. We will follow up. 6. COVID pneumonia as by Pulmonary. Time spent discussing with the patient, examining the patient, [id number] withthe patient, placing orders, discussing the case with our production team manager including nursing, discussing the case with the other subspecialty including Cardiology and hospitalist 45 minutes. MISSAEL Voice ID: [id number] Report ID: [id number] KRISTEL
[2020-11-11 12:17] LABS: Hematocrit 28.1 % (39.6-49.0)
--- NOTE | 2020-11-11 14:49 | P.PN ---
Subjective Date of Service: 11/11/20 Chief Complaint: Respiratory failure Patient has no new complain. Brief run of V-tach today. He is currently tolerating 90% FiO2, high-flow oxygen. Patient receiving hemodialysis. Physical Examination - Vital Signs Temperature: 96.8 F Blood Pressure: 105/55 Pulse: 82 Respirations: 24 Pulse Ox (%): 91 - Physical Exam General: Confused, Other (Drowsy) HEENT: Mucous membr. moist/pink Neck: JVD not distended Respiratory: Other (Nonlabored breathing.) Cardiovascular: No edema, Regular rate/rhythm, Normal S1 S2 Gastrointestinal: Normal bowel sounds, Soft and benign, Non-distended Musculoskeletal: No swelling Integumentary: No rashes Neurological: Other (No focal motor deficit) Other Physical/Emotional Findings: Physical exam not done d/t covid isolation Assessment And Plan Physician Review: Patient Assessed, Agree with Above Assessment and Plan Physician Review Additional Text: Problem List Acute hypoxemic respiratory failure secondary to Covid 19 pneumonia NSTEMI Hypotension SCAR on CKD4, now 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 Pulm following -hemodialysis per nephrology -patient was on cellcept and immunocompromised. received merrem and vanc for ~2 weeks for concern of bacterial superinfection, antibiotics discontinued on 11/04 -initially planned for kidney biopsy, however was postponed due to decompensation. Eliquis resumed on 11/02 to cover COVID induced hypercoagulability. -Cardiology saw patient for chest pressure, elevated troponin, echocardiogram: Normal EF. troponin trended down. [place] elevated troponin likely secondary to demand ischemia -inflammatory markers downtrending VTE: Eliquis Code: full Dispo: guarded prognosis, still requiring high levels of O2..
[2020-11-11] MEDS ORDERED: NA CHLORIDE 0.9% 250 ML IV SCH (16:00)
[2020-11-11 21:14] LABS: Hematocrit 28.8 % (39.6-49.0)
[2020-11-11] MEDS: BENZONATATE 100 MG CAP PO PRN (21:51)
[2020-11-11] MEDS: INSULIN GLARGINE 100 UNITS/ML SQ SCH (21:53)
[2020-11-12] MEDS: INSULIN -REGULAR HUMAN 50 UNIT/0.5 ML ML SQ SCH ×4 (00:28→17:19)
[2020-11-12 05:24] LABS: Absolute Lymphocytes (CBC) 0.1 K/uL (0.7-4.9); Basophils % 0.4 % (0-1.3); Hematocrit 27.9 % (39.6-49.0); Lymphocytes % 0.8 % (15.3-44.8); MPV 10.4 fL (7.6-11.3); RBC Red Blood Cell Count 3.18 M/uL (4.33-5.43)
[2020-11-12 05:33] LABS: Albumin 2.5 g/dL (3.4-5.0); Phosphorus 4.5 mg/dL (2.5-4.9); Potassium 4.9 mmol/L (3.5-5.1)
[2020-11-12] MEDS ORDERED: ALBUTEROL 2.5 MG/3 ML NEB SOL NEB PRN (07:47)
[2020-11-12] MEDS: SODIUM ZIRCONIUM CYCLOSILICATE PO SCH (09:00)
[2020-11-12] MEDS: NEPRO SHAKE 237 ML CAN PO SCH ×2 (09:00→21:14)
[2020-11-12] MEDS: METHYLPREDNISOLONE 40 MG INJ IV SCH ×3 (09:14→21:12)
[2020-11-12] MEDS: FAMOTIDINE 20 MG TAB PO SCH ×2 (09:14→21:11)
[2020-11-12] MEDS: TAMSULOSIN 0.4 MG SR CAP PO SCH (09:15)
[2020-11-12] MEDS: MIDODRINE HCL 5 MG TABLET PO SCH ×2 (09:15→21:12)
[2020-11-12] MEDS: VITAMIN D 5,000 UNIT CAP PO SCH (09:15)
[2020-11-12] MEDS: GUAIFENESIN 600 MG SA TAB PO SCH ×2 (09:15→21:10)
[2020-11-12] MEDS: DOCUSATE NA 100 MG CAP PO SCH ×2 (09:15→21:10)
[2020-11-12] MEDS: APIXABAN 2.5 MG TABLET PO SCH ×2 (09:15→21:10)
[2020-11-12] MEDS: allopurinoL 100 MG TAB PO SCH (09:15)
--- NOTE | 2020-11-12 12:42 | P.PN ---
Subjective Date of Service: 11/12/20 Chief Complaint: Respiratory failure No major changes from yesterday. He is maintained on 90% FiO2, high-flow oxygen. He is confused. Physical Examination - Vital Signs Temperature: 96.6 F Blood Pressure: 125/51 Pulse: 86 Respirations: 25 Pulse Ox (%): 100 - Physical Exam General: In no apparent distress, Confused Neck: JVD not distended Respiratory: Other (No labored breathing) Cardiovascular: No edema, Regular rate/rhythm, Normal S1 S2 Gastrointestinal: Normal bowel sounds, Soft and benign, Non-distended Musculoskeletal: No swelling Integumentary: No rashes Neurological: Other (Moves all extremities.) Other Physical/Emotional Findings: Physical exam not done d/t covid isolation Assessment And Plan Physician Review: Patient Assessed, Agree with Above Assessment and Plan Physician Review Additional Text: Problem List Acute hypoxemic respiratory failure secondary to Covid 19 pneumonia NSTEMI Hypotension SCAR on CKD4, now 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 Pulm following -hemodialysis per nephrology -patient was on cellcept and immunocompromised. received merrem and vanc for ~2 weeks for concern of bacterial superinfection, antibiotics discontinued on 11/04 -initially planned for kidney biopsy, however was postponed due to decompensation. Eliquis resumed on 11/02 to cover COVID induced hypercoagulability. -Cardiology saw patient for chest pressure, elevated troponin, echocardiogram: Normal EF. troponin trended down. Elevated troponin likely secondary to demand ischemia -inflammatory markers downtrending -patient has been having runs of nonsustained VT. -monitor and optimize electrolytes. VTE: Eliquis Code: full Dispo: guarded prognosis, still requiring high levels of O2..
--- NOTE | 2020-11-12 14:00 | PN ---
Date of Progress Note: 11/12/2020 Subjective: The patient was admitted with acute kidney injury on chronic kidney disease with COVID pneumonia. The RPGN doubt to be patient of immunosuppressive kidney function continued to improve, nonoliguric. Physical Examination: Vital Signs: Blood pressure 104/50, pulse of 78, afebrile. Chest: Crackles bilateral. Heart: S1, S2. Systolic murmur. Abdomen: Soft, nontender. Extremities: No edema. Laboratory Data: WBC 16.2, H and H 8.9/27.9, platelet 123. Sodium 143, potassium 4.9, bicarb 30, BUN 94 down from 160 yesterday, creatinine 2.1, calcium 8.3, phosphorus 4.5, albumin 2.5. Corrected calcium is 9.5. Current Medications: The patient on include albuterol, midodrine before dialysis, Flomax, midodrine 5 mg b.i.d., Epogen, Eliquis, calcium carbonate, Lasix drip 5 mg per hour, Solu-Medrol 40 t.i.d., docusate, calcitriol, vitamin D. Assessment And Plan: 1. Acute kidney injury secondary to cardiorenal, doubt to be secondary to RPGN given the improvement without immunosuppressive treatment. The patient had difficulty on ultrafiltration on the dialysis and yet still has significant elevation in BUN. I am going to continue on the dialysis without any ultrafiltration and we will follow up the patient closely. I will arrange for dialysis tomorrow. 2. Hypertension, currently hypotension. Continue midodrine before dialysis and around the clock. We will use sodium module and low temperature to achieve the dialysis safely. Hopefully, if his BUN starts being improving, we will start backup on the dialysis. 3. Disproportion in BUN and creatinine secondary to catabolic state/steroid. We will discuss with Pulmonary about tapering down the prednisone if that possible. Again, we will continue dialysis as above. 4. Secondary hyperparathyroidism. Continue vitamin D. Continue calcium carbonate. 5. Anemia of chronic kidney disease, status post transfusion. Continue LINDY. 6. COVID pneumonia as by Pulmonary. 7. Cardiorenal syndrome. Continue Lasix drip. Time spent discussing with the patient, examining the patient, [id number] withthe patient, placing orders, discussing the case with our seal delivery vehicle team technician including nursing, discussing the case with the other subspecialty including Cardiology and hospitalist 45 minutes. MA/MODL Voice ID: [id number] Report ID: [id number] KRISTEL
[2020-11-12 14:26] LABS: Magnesium 2.3 mg/dL (1.8-2.4); Phosphorus 4.6 mg/dL (2.5-4.9)
--- NOTE | 2020-11-12 16:46 | PN ---
Subjective: The patient is lying in bed, on vent. No new acute event. Objective: Vital Signs: Temperature 98, pulse 78, respirations 18, blood pressure 104/50. Lungs: Basal crackles. Heart: S1, S2. Regular. Abdomen: Soft, nontender. Bowel sounds present. Extremity: Trace edema. Laboratory Data: WBC 16.2, hemoglobin 8.9, platelets 123. Lab data shows sodium 143, potassium 4.9, chloride 107, bicarb 30, BUN 94, creatinine 2.11, glucose 144. Assessment And Plan: Respiratory failure secondary to COVID-19 pneumonia with bilateral infiltrates. Prognosis remains guarded. Once the patient is stabilized, consider transferring the patient to [facility]. We will follow the patient as needed. No new recommendation at this time. NF/MODL Voice ID: [id number] Report ID: [id number]
[2020-11-12] MEDS: INSULIN GLARGINE 100 UNITS/ML SQ SCH (21:10)
[2020-11-12] MEDS: FUROSEMIDE 100 MG in NA CHLORIDE 0.9% 90 ML IV SCH ×3 (21:13)
[2020-11-13] MEDS: INSULIN -REGULAR HUMAN 50 UNIT/0.5 ML ML SQ SCH ×4 (00:39→17:28)
[2020-11-13 05:28] LABS: Albumin 2.6 g/dL (3.4-5.0); Phosphorus 4.7 mg/dL (2.5-4.9)
[2020-11-13 05:50] LABS: Absolute Lymphocytes (CBC) 0.1 K/uL (0.7-4.9); Basophils % 0.3 % (0-1.3); Hematocrit 29.5 % (39.6-49.0); Lymphocytes % 0.9 % (15.3-44.8); MPV 11.1 fL (7.6-11.3); RBC Red Blood Cell Count 3.35 M/uL (4.33-5.43)
[2020-11-13] MEDS: SODIUM ZIRCONIUM CYCLOSILICATE PO SCH (07:20)
[2020-11-13 08:20] LABS: Anisocytosis SLIGHT; Blood Morphology Comment NOTED (NOT SEEN); Platelet Estimate DECR; White Blood Cell Scan OK (OK)
[2020-11-13 08:21] LABS: Basophilic Stippling 1+
[2020-11-13] MEDS: TAMSULOSIN 0.4 MG SR CAP PO SCH (08:53)
[2020-11-13] MEDS: METHYLPREDNISOLONE 40 MG INJ IV SCH ×3 (08:53→22:19)
[2020-11-13] MEDS: DOCUSATE NA 100 MG CAP PO SCH ×2 (08:53→22:19)
[2020-11-13] MEDS: VITAMIN D 5,000 UNIT CAP PO SCH (08:53)
[2020-11-13] MEDS: FAMOTIDINE 20 MG TAB PO SCH ×2 (08:53→22:18)
[2020-11-13] MEDS: APIXABAN 2.5 MG TABLET PO SCH ×2 (08:54→22:18)
[2020-11-13] MEDS: allopurinoL 100 MG TAB PO SCH (08:54)
[2020-11-13] MEDS: MIDODRINE HCL 5 MG TABLET PO SCH ×3 (08:54→22:18)
[2020-11-13] MEDS: NEPRO SHAKE 237 ML CAN PO SCH ×2 (08:54→21:00)
[2020-11-13] MEDS: GUAIFENESIN 600 MG SA TAB PO SCH ×2 (08:55→21:00)
--- NOTE | 2020-11-13 10:18 | P.PN ---
Subjective Date of Service: 11/13/20 Chief Complaint: Respiratory failure Patient seen examined at bedside, using bipap/cpap. No acute events over past 24 hr. Review of Systems 10-point ROS is otherwise unremarkable Physical Examination - Vital Signs Temperature: 97.7 F Blood Pressure: 131/61 Pulse: 81 Respirations: 21 Pulse Ox (%): 98 - Physical Exam Other Physical/Emotional Findings: Physical exam not done d/t covid isolation - Studies Temp Pulse Resp BP Pulse Ox 97.7 F 81 21 H 131/61 98 11/13/20 00:00 11/13/20 08:00 11/13/20 08:00 11/13/20 08:00 11/13/20 08:00 Allergy/AdvReac Type Severity Reaction Status Date / Time No Known Allergies Allergy Verified 10/23/20 05:21 Assessment And Plan - Plan General: Alert, In no apparent distress HEENT: Atraumatic, Normocephalic Neck: Supple, 2+ carotid pulse no bruit Respiratory: Diminished Cardiovascular: No edema, Normal pulses, Regular rate/rhythm Capillary refill: <2 Seconds Gastrointestinal: Normal bowel sounds, Non-distended Musculoskeletal: No clubbing, No swelling, No contractures Integumentary: No rashes, No breakdown, No significant lesion Conclusions/Impression: Assessment: -COVID 19 pneumonia -diffuse proliferative glomerular nephritis with CKD -CKD stage 4 -anemia Plan: -patient currently on Solu-Medrol, dexamethasone DC. Continue oxygen supplementation. Chest x-ray shows bilateral pulmonary opacities, pulmonary on board. Prognosis remains guarded. Once the patient is stabilized, consider tr ansferring the patient to long-term acute care. We will follow the patient as needed. No new recommendation at this time. -patient's is immunocompromised due to history chemotherapy/immunosuppressive drug use due to glomerular nephritis. Continue to monitor closely for any signs or symptoms of infection. Patient is on steroids. Has completed 2 week course of broad-spectrum antibiotic coverage. -medical management per primary team -continue monitor CBC and BMP -continue monitor for signs infection Plan of care discussed with Dr. Holland. Thank you for consultation. Physician Review: Patient Assessed, Agree with Above Assessment and Plan
[2020-11-13] MEDS: CALCITROL 0.25 MCG CAP PO SCH (11:45)
[2020-11-13 13:20] LABS: Magnesium 2.2 mg/dL (1.8-2.4); Phosphorus 2.9 mg/dL (2.5-4.9)
[2020-11-13] MEDS: EPOETIN ALFA 10,000 UNIT/ML VIAL IV SCH (15:15)
--- NOTE | 2020-11-13 16:28 | P.PN ---
Subjective Date of Service: 11/13/20 Chief Complaint: Respiratory failure No major changes from yesterday. He is maintained on 90% FiO2, high-flow oxygen. Physical Examination - Vital Signs Temperature: 96.5 F Blood Pressure: 140/54 Pulse: 76 Respirations: 23 Pulse Ox (%): 90 - Physical Exam General: In no apparent distress, Confused HEENT: Other (BiPAP) Neck: JVD not distended Respiratory: Other (Nonlabored Joshua) Cardiovascular: No edema Gastrointestinal: Soft and benign, Non-distended Musculoskeletal: No swelling Integumentary: No rashes Neurological: Other (Moves all extremities spontaneously.) Other Physical/Emotional Findings: Physical exam not done d/t covid isolation Assessment And Plan Physician Review: Patient Assessed, Agree with Above Assessment and Plan Physician Review Additional Text: Problem List Acute hypoxemic respiratory failure secondary to Covid 19 pneumonia NSTEMI Hypotension 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 -On steroids, vitamin supplementation -difficult to wean off high-flow oxygen. Currently on 90% FiO2. -hemodialysis per nephrology -patient was on cellcept and immunocompromised. received merrem and vanc for ~2 weeks for concern of bacterial superinfection, antibiotics discontinued on 11/04 -initially planned for kidney biopsy, however was postponed due to unstable respiratory status. Eliquis resumed on 11/02 to cover COVID induced hypercoagulability. -Cardiology saw patient for chest pressure, elevated troponin, echocardiogram: Normal EF. troponin trended down. Elevated troponin likely secondary to demand ischemia -patient has been having runs of nonsustained VT. -monitor and optimize electrolytes. -hemoglobin is stable at 10. Continue to monitor. VTE: Eliquis Code: full Dispo: guarded prognosis.
--- NOTE | 2020-11-13 18:38 | PN ---
Date of Progress Note: 11/13/2020 Subjective: The patient was admitted with COVID pneumonia. Had acute kidney injury secondary to cardiorenal. The patient placed on Lasix drip. His acute kidney injury is mostly secondary to cardiorenal, doubt to be as RPGN given the patient of immunosuppressive for the last almost 2 weeks with improvement in kidney function. Physical Examination: Vital Signs: Blood pressure 140/54, pulse of 76, afebrile. The patient had good urine output of 1 L, positive balance of 300. Chest: Faint rales in the base. Heart: S1, S2. Systolic murmur. Abdomen: Soft, nontender. Extremities: No edema. Laboratory Data: H and H 04/08.5. Sodium 143, potassium 5, bicarb 32, BUN 36, creatinine 2.4, calcium 8.3, phosphorus 4.7, albumin 2.6. Current Medications: The patient on include; 1. Albuterol. 2. Midodrine with each dialysis. 3. Midodrine 5 mg b.i.d. 4. Eliquis. 5. Lasix drip. 6. Calcium carbonate. 7. Nepro. 8. Pepcid. 9. Docusate. 10. Allopurinol. 11. Calcitriol. 12. Cholecalciferol. 13. Solu-Medrol 40 t.i.d. Assessment And Plan: 1. Acute kidney injury secondary to cardiorenal. I am going to continue on the Lasix drip to avoid any ultrafiltration on the dialysis for the time being and we will follow up after stabilizing the patient. Hopefully, we can backup on the dialysis. Currently, we do dialysis for metabolic clearance given the severe elevation in BUN. 2. Disproportion in BUN and creatinine secondary to catabolic/steroid. Continue dialysis. 3. Hypertension, currently hypotension. Continue midodrine, utilize blood pressure for achieving better urine output with the Lasix drip. 4. COVID pneumonia. Follow up with Pulmonary. We will discuss if possible to start tapering the prednisone. 5. RPGN. I doubt that it is on exacerbation currently as kidney function has been improved without any immunosuppressive therapy. We will continue to monitor, keep holding Cellcept for the time being. 6. Cardiorenal syndrome. Continue Lasix drip. We will follow up. Time spent discussing with the patient, examining the patient, [id number] withthe patient, placing orders, discussing the case with our sports team marketing intern including nursing, discussing the case with the other subspecialty including Cardiology and hospitalist 45 minutes. MISSAEL Voice ID: [id number] Report ID: [id number] [email or web address]
[2020-11-13] MEDS: INSULIN GLARGINE 100 UNITS/ML SQ SCH (22:20)
[2020-11-14] MEDS: FUROSEMIDE 100 MG in NA CHLORIDE 0.9% 90 ML IV SCH ×2 (00:25→17:46)
[2020-11-14] MEDS: INSULIN -REGULAR HUMAN 50 UNIT/0.5 ML ML SQ SCH ×4 (00:44→17:43)
[2020-11-14 05:56] LABS: Absolute Lymphocytes (CBC) 0.1 K/uL (0.7-4.9); Basophils % 0.2 % (0-1.3); Hematocrit 28.7 % (39.6-49.0); Lymphocytes % 0.7 % (15.3-44.8); RBC Red Blood Cell Count 3.22 M/uL (4.33-5.43)
[2020-11-14 06:12] LABS: Albumin 2.5 g/dL (3.4-5.0); C-Reactive Protein 3.23 mg/L (<3.00); Ferritin 321.4 ng/mL (26-388); Phosphorus 4.5 mg/dL (2.5-4.9); Potassium 4.7 mmol/L (3.5-5.1)
[2020-11-14] MEDS: TAMSULOSIN 0.4 MG SR CAP PO SCH (08:04)
[2020-11-14] MEDS: VITAMIN D 5,000 UNIT CAP PO SCH (08:04)
[2020-11-14] MEDS: DOCUSATE NA 100 MG CAP PO SCH ×2 (08:05→20:37)
[2020-11-14] MEDS: FAMOTIDINE 20 MG TAB PO SCH ×2 (08:05→20:37)
[2020-11-14] MEDS: METHYLPREDNISOLONE 40 MG INJ IV SCH ×3 (08:05→20:36)
[2020-11-14] MEDS: APIXABAN 2.5 MG TABLET PO SCH ×2 (08:05→20:37)
[2020-11-14] MEDS: MIDODRINE HCL 5 MG TABLET PO SCH ×2 (08:06→20:37)
[2020-11-14] MEDS: NEPRO SHAKE 237 ML CAN PO SCH ×2 (08:06→20:38)
[2020-11-14] MEDS: allopurinoL 100 MG TAB PO SCH (08:06)
[2020-11-14] MEDS: GUAIFENESIN 600 MG SA TAB PO SCH ×2 (08:08→20:36)
--- NOTE | 2020-11-14 08:42 | P.PN ---
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 I ordered another HD for tomorrow Lasix gtt switched to po bid starting tomorrow AM Monitor renal panel # PIGN MMF on hold d/t PNA KBx pending # BPH Hx of prostate Ca s/p radiotx Cont flomax # Hypotension suspect from autonomic neuropathy aggravated by sepsis BP improved/stable on midodrine Cont midodrine Hx of Htn TSH& serum B12 wnl # Respi failure 2/2 COVID PNA Mngt per other services # CHF Cont lasix as above # Anemia Tsat low at 13% - defer IV iron therapy d/t acute infection B12 & folate not low TSH wnl Cont epogen # Hypocalcemia Improved Correction via HD & Ca supplement, & calcitriol & D suppl D3 suppl # HyperPO4 Phos now at goal Cont binder # Secondary hyperPTH Cont calcitriol 25OHD 19, low, cont high dose D3 suppl Physician Review: Patient Assessed, Agree with Above Assessment and Plan
[2020-11-14] MEDS: SODIUM ZIRCONIUM CYCLOSILICATE PO SCH (09:00)
--- NOTE | 2020-11-14 09:27 | P.PN ---
Subjective Date of Service: 11/14/20 Chief Complaint: Respiratory failure FiO2 weaned down to 65% today. On BiPAP. Patient is more interactive. Physical Examination - Vital Signs Temperature: 97.6 F Blood Pressure: 120/58 Pulse: 74 Respirations: 97 Pulse Ox (%): 97 - Physical Exam General: Alert, In no apparent distress HEENT: Other (BiPAP) Neck: JVD not distended Respiratory: Other (Nonlabored breathing) Cardiovascular: No edema, Regular rate/rhythm, Normal S1 S2 Gastrointestinal: Soft and benign, Non-distended, No tenderness Musculoskeletal: No swelling Integumentary: Other (Excoriation on the bridge of nose) Neurological: Normal strength at 5/5 x4 extr Other Physical/Emotional Findings: Physical exam not done d/t covid isolation Assessment And Plan Physician Review: Patient Assessed, Agree with Above Assessment and Plan Physician Review Additional Text: Problem List Acute hypoxemic respiratory failure secondary to Covid 19 pneumonia NSTEMI Hypotension 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 -continue steroids, vitamin supplementation -FiO2 weaned down to 65% -trial off high-flow oxygen. -hemodialysis per nephrology. -patient is also on Lasix drip. -he is on midodrine for hypotension -patient was on cellcept and immunocompromised. received merrem and vanc for ~2 weeks for concern of bacterial superinfection, antibiotics discontinued on 11/04 -initially planned for kidney biopsy, however was postponed due to unstable respiratory status. Eliquis resumed on 11/02 to cover COVID induced hypercoagulability. -Elevated troponin likely secondary to demand ischemia -patient has been having runs of nonsustained VT. -monitor and optimize electrolytes. -hemoglobin is stable at 10. Continue to monitor. VTE: Eliquis Code: full Dispo: guarded prognosis.
--- NOTE | 2020-11-14 09:37 | P.PN ---
Subjective Date of Service: 11/14/20 Chief Complaint: Respiratory failure Patient seen examined at bedside, using bipap/cpap. Per nurse there buying to try and wean off the BiPAP and start high flow today. Thrombocytopenia improving. Review of Systems 10-point ROS is otherwise unremarkable Physical Examination - Vital Signs Temperature: 97.6 F Blood Pressure: 120/58 Pulse: 74 Respirations: 97 Pulse Ox (%): 97 - Physical Exam Other Physical/Emotional Findings: Physical exam not done d/t covid isolation - Studies Temp Pulse Resp BP Pulse Ox 97.6 F 74 97 H 120/58 L 97 11/14/20 09:26 11/14/20 09:26 11/14/20 09:26 11/14/20 09:26 11/14/20 09:26 Allergy/AdvReac Type Severity Reaction Status Date / Time No Known Allergies Allergy Verified 10/23/20 05:21 Assessment And Plan - Plan General: Alert, In no apparent distress HEENT: Atraumatic, Normocephalic Neck: Supple, 2+ carotid pulse no bruit Respiratory: Diminished Cardiovascular: No edema, Normal pulses, Regular rate/rhythm Capillary refill: <2 Seconds Gastrointestinal: Normal bowel sounds, Non-distended Musculoskeletal: No clubbing, No swelling, No contractures Integumentary: No rashes, No breakdown, No significant lesion Conclusions/Impression: Assessment: -COVID 19 pneumonia -diffuse proliferative glomerular nephritis with CKD -CKD stage 4 -anemia Plan: -patient currently on Solu-Medrol, dexamethasone DC. Continue oxygen supplementation. Chest x-ray shows bilateral pulmonary opacities, pulmonary on board. Prognosis remains guarded. Once the patient is stabilized, consider transferring the patient to long-term acute care. We will follow the patient as needed. No new recommendation at this time. -patient's is immunocompromised due to history chemotherapy/immunosuppressive drug use due to glomerular nephritis. Continue to monitor closely for any signs or symptoms of infection. Patient is on steroids. Has completed 2 week course of broad-spectrum antibiotic coverage. -medical management per primary team -continue monitor CBC and BMP -continue monitor for signs infection Plan of care discussed with Dr. Holland. Thank you for consultation. Physician Review: Patient Assessed, Agree with Above Assessment and Plan
[2020-11-14 13:35] LABS: Magnesium 2.3 mg/dL (1.8-2.4); Phosphorus 4.5 mg/dL (2.5-4.9)
[2020-11-14] MEDS: INSULIN GLARGINE 100 UNITS/ML SQ SCH (20:38)
[2020-11-15] MEDS: INSULIN -REGULAR HUMAN 50 UNIT/0.5 ML ML SQ SCH ×4 (00:36→16:53)
[2020-11-15 05:11] LABS: Absolute Lymphocytes (CBC) 0.1 K/uL (0.7-4.9); Basophils % 0.5 % (0-1.3); Hematocrit 29.1 % (39.6-49.0); Lymphocytes % 0.7 % (15.3-44.8); RBC Red Blood Cell Count 3.26 M/uL (4.33-5.43)
[2020-11-15 05:56] LABS: Albumin 2.5 g/dL (3.4-5.0); Phosphorus 3.4 mg/dL (2.5-4.9); Potassium 4.6 mmol/L (3.5-5.1)
[2020-11-15 08:08] LABS: Ferritin 315.2 ng/mL (26-388)
[2020-11-15 08:10] LABS: C-Reactive Protein < 2.90 mg/L (<3.00)
[2020-11-15] MEDS: SODIUM ZIRCONIUM CYCLOSILICATE PO SCH (09:00)
[2020-11-15] MEDS: GUAIFENESIN 600 MG SA TAB PO SCH ×2 (09:00→21:53)
[2020-11-15] MEDS: NEPRO SHAKE 237 ML CAN PO SCH ×2 (09:00→20:37)
--- NOTE | 2020-11-15 10:15 | P.PN ---
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, admitted with SOB and COVID pneumonia, started on HD Today Now on High flow O2 , O2 sat 90% HD today Physical exam general: AAOX3, in mild distress Neck; Supple, No elevated JVD hear: RRR, normal S1,2 no murmur or rub Chest: basal rales Abdomen: Soft , Nt Extremities No edema or ulcer A/P # SCAR likely pt with Hx of ANCA vasculitis , was on cellcept as an OP serology ANCA negative 2/2 ATN +/- CRS1, less likely PIGN flare now started HD TTSAt Cont lasix Monitor renal panel # PIGN MMF on hold d/t PNA KBx pending # Septic shock BP improves cont midodrine # Respi failure 2/2 COVID PNA Cont steroids and o2 as per pulmonary # CHF Cont lasix as above # Anemia Tsat low at 13% - defer IV iron therapy d/t acute infection Metabolic bone disease cont to monitor ca and Phos Total time spent 45 min Physical Examination - Vital Signs Temperature: 97.7 F Blood Pressure: 134/62 Pulse: 87 Respirations: 20 Pulse Ox (%): 91 - Physical Exam Other Physical/Emotional Findings: Physical exam not done d/t covid isolation Assessment And Plan Physician Review: Patient Assessed, Agree with Above Assessment and Plan
--- NOTE | 2020-11-15 10:54 | P.PN ---
Subjective Date of Service: 11/15/20 Chief Complaint: Respiratory failure No changes still requiring high concentrations of oxygen he does have a nasal bridge ulcer from the BiPAP Review of Systems is unable to be obtained Physical Examination - Vital Signs Temperature: 97.7 F Blood Pressure: 134/62 Pulse: 87 Respirations: 20 Pulse Ox (%): 91 - Physical Exam Other Physical/Emotional Findings: Physical exam not done d/t covid isolation Assessment & Plan - Problems (Diagnosis) (1) Pneumonia due to coronavirus disease 2018 Current Visit: Yes Status: Acute Plan: Respiratory failure continue to titrate his oxygen levels down change to hold face facemask has patient has a nasal bridge ulcer patient is undergoing dialysis still requiring high concentrations of oxygen prognosis very poor in you to wean he is very alert currently on tube feeds labs reviewed continue with steroids Physician Review: Patient Assessed, Agree with Above Assessment and Plan
[2020-11-15] MEDS: METHYLPREDNISOLONE 40 MG INJ IV SCH ×3 (11:17→21:57)
[2020-11-15] MEDS: DOCUSATE NA 100 MG CAP PO SCH ×2 (11:17→21:53)
[2020-11-15] MEDS: MIDODRINE HCL 5 MG TABLET PO SCH ×3 (11:17→21:57)
[2020-11-15] MEDS: APIXABAN 2.5 MG TABLET PO SCH ×2 (11:17→21:53)
[2020-11-15] MEDS: TAMSULOSIN 0.4 MG SR CAP PO SCH (11:17)
[2020-11-15] MEDS: FAMOTIDINE 20 MG TAB PO SCH ×2 (11:17→21:57)
[2020-11-15] MEDS: VITAMIN D 5,000 UNIT CAP PO SCH (11:17)
[2020-11-15] MEDS: FUROSEMIDE 40 MG TABLET PO SCH ×2 (11:18→16:54)
[2020-11-15] MEDS: allopurinoL 100 MG TAB PO SCH (11:19)
--- NOTE | 2020-11-15 12:21 | P.PN ---
Subjective Date of Service: 11/15/20 Chief Complaint: Respiratory failure Patient tolerating high-flow oxygen. He is fed through NGT. He also ate little bit yesterday. Physical Examination - Vital Signs Temperature: 97.7 F Blood Pressure: 134/62 Pulse: 87 Respirations: 20 Pulse Ox (%): 91 - Physical Exam General: Alert, In no apparent distress HEENT: Mucous membr. moist/pink Respiratory: Other (Nonlabored breathing) Cardiovascular: No edema, Regular rate/rhythm, Normal S1 S2 Gastrointestinal: Soft and benign, Non-distended Musculoskeletal: No swelling Integumentary: Other (Abrasion on the bridge of nose.) Neurological: Normal strength at 5/5 x4 extr Other Physical/Emotional Findings: Physical exam not done d/t covid isolation Assessment And Plan Physician Review: Patient Assessed, Agree with Above Assessment and Plan Physician Review Additional Text: Problem List Acute hypoxemic respiratory failure secondary to Covid 19 pneumonia NSTEMI Hypotension 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 -continue steroids, vitamin supplementation -FiO2 weaned down to 65% -high-flow oxygen as tolerated -feed by mouth as tolerated. -continue NG tube feeding. -hemodialysis per nephrology. -patient transition from Lasix drip to Lasix IV 80 mg b.i.d. -he is on midodrine for hypotension -patient was on cellcept and immunocompromised. received merrem and vanc for ~2 weeks for concern of bacterial superinfection, antibiotics discontinued on 11/04 -initially planned for kidney biopsy, however was postponed due to unstable respiratory status. Eliquis resumed on 11/02 to cover COVID induced hypercoagulability. -Elevated troponin likely secondary to demand ischemia -patient has been having runs of nonsustained VT. -monitor and optimize electrolytes. -hemoglobin is stable at 10. Continue to monitor. VTE: Eliquis Code: full Dispo: guarded prognosis.
[2020-11-15] MEDS: CALCITROL 0.25 MCG CAP PO SCH (12:53)
[2020-11-15] MEDS: EPOETIN ALFA 10,000 UNIT/ML VIAL IV SCH (15:15)
[2020-11-15] MEDS: INSULIN GLARGINE 100 UNITS/ML SQ SCH (21:54)
[2020-11-16] MEDS: INSULIN -REGULAR HUMAN 50 UNIT/0.5 ML ML SQ SCH ×5 (06:00→21:00)
[2020-11-16 06:55] LABS: C-Reactive Protein 13.3 mg/L (<3.00); Ferritin 315.3 ng/mL (26-388)
--- NOTE | 2020-11-16 08:22 | RAD REPORT ---
EXAM DESCRIPTION: Clarisse Single View11/16/2020 6:44 am CLINICAL HISTORY: Respiratory failure COMPARISON: November 11, 2020 FINDINGS: No significant change in the bilateral pulmonary opacities cardiomegaly. Feeding tube near the junction of the stomach and duodenum. Central venous catheter remains in place. IMPRESSION: No change and the mild bilateral pulmonary opacities
[2020-11-16] MEDS: FAMOTIDINE 20 MG TAB PO SCH ×2 (08:32→21:31)
[2020-11-16] MEDS: METHYLPREDNISOLONE 40 MG INJ IV SCH ×3 (08:32→21:33)
[2020-11-16] MEDS: TAMSULOSIN 0.4 MG SR CAP PO SCH (08:32)
[2020-11-16] MEDS: VITAMIN D 5,000 UNIT CAP PO SCH (08:32)
[2020-11-16] MEDS: DOCUSATE NA 100 MG CAP PO SCH ×2 (08:32→21:29)
[2020-11-16] MEDS: FUROSEMIDE 40 MG TABLET PO SCH ×2 (08:32→17:26)
[2020-11-16] MEDS: allopurinoL 100 MG TAB PO SCH (08:35)
[2020-11-16] MEDS: APIXABAN 2.5 MG TABLET PO SCH ×2 (08:35→21:29)
[2020-11-16] MEDS: BENZONATATE 100 MG CAP PO PRN (08:35)
[2020-11-16] MEDS: NEPRO SHAKE 237 ML CAN PO SCH ×2 (08:36→21:34)
[2020-11-16] MEDS: MIDODRINE HCL 5 MG TABLET PO SCH ×3 (08:36→21:33)
[2020-11-16] MEDS: GUAIFENESIN 600 MG SA TAB PO SCH ×2 (08:37→21:31)
[2020-11-16 08:57] LABS: Potassium 4.3 mmol/L (3.5-5.1)
[2020-11-16] MEDS: SODIUM ZIRCONIUM CYCLOSILICATE PO SCH (08:58)
[2020-11-16 09:03] LABS: Absolute Lymphocytes (CBC) 0.2 K/uL (0.7-4.9); Basophils % 0.1 % (0-1.3); Lymphocytes % 1.2 % (15.3-44.8); MPV 11.3 fL (7.6-11.3); RBC Red Blood Cell Count 3.39 M/uL (4.33-5.43)
--- NOTE | 2020-11-16 09:47 | P.PN ---
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, admitted with SOB and COVID pneumonia, started on HD Today clinically improving requires less O2 HD done yesterday, non oliguric will monitor RFT while off HD Physical exam general: AAOX3, in mild distress Neck; Supple, No elevated JVD hear: RRR, normal S1,2 no murmur or rub Chest: basal rales Abdomen: Soft , Nt Extremities No edema or ulcer A/P # SCAR likely pt with Hx of ANCA vasculitis , was on cellcept as an OP serology ANCA negative 2/2 ATN +/- CRS1, less likely PIGN flare now started HD TTSAt Cont lasix Monitor renal panel # PIGN MMF on hold d/t PNA KBx pending # Septic shock BP improves cont midodrine # Respi failure 2/2 COVID PNA Cont steroids and o2 as per pulmonary # CHF Cont lasix as above # Anemia Tsat low at 13% - defer IV iron therapy d/t acute infection Metabolic bone disease cont to monitor ca and Phos Total time spent 45 min Physical Examination - Vital Signs Temperature: 97.7 F Blood Pressure: 134/62 Pulse: 87 Respirations: 20 Pulse Ox (%): 91 - Physical Exam Other Physical/Emotional Findings: Physical exam not done d/t covid isolation Assessment And Plan Physician Review: Patient Assessed, Agree with Above Assessment and Plan
[2020-11-16 11:05] LABS: Blood Morphology Comment NOT SEEN (NOT SEEN); Platelet Estimate ADEQ
--- NOTE | 2020-11-16 12:22 | P.PN ---
Subjective Date of Service: 11/16/20 Chief Complaint: Respiratory failure Patient tolerating high-flow oxygen. 85% FiO2 and 40 liters/minute. He is now tolerating diet. NG tube is in place. Physical Examination - Vital Signs Temperature: 97.7 F Blood Pressure: 134/62 Pulse: 87 Respirations: 20 Pulse Ox (%): 91 - Physical Exam General: Alert, In no apparent distress HEENT: Other (NGT) Neck: JVD not distended Respiratory: Other (Nonlabored breathing) Cardiovascular: No edema, Regular rate/rhythm, Normal S1 S2 Gastrointestinal: Soft and benign, Non-distended, No tenderness Musculoskeletal: No swelling Integumentary: No rashes Neurological: Other (No focal motor deficit.) Other Physical/Emotional Findings: Physical exam not done d/t covid isolation Assessment And Plan Physician Review: Patient Assessed, Agree with Above Assessment and Plan Physician Review Additional Text: Problem List Acute hypoxemic respiratory failure secondary to Covid 19 pneumonia NSTEMI Hypotension 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 -he is gradually improving. -continue steroids, vitamin supplementation -patient is tolerate high-flow oxygen -feed by mouth as tolerated. -remove NG tube since patient is not tolerating oral diet -hemodialysis per nephrology. -patient transition from Lasix drip to Lasix IV 80 mg b.i.d. -he is on midodrine for hypotension -patient was on cellcept and immunocompromised. received merrem and vanc for ~2 weeks for concern of bacterial superinfection, antibiotics discontinued on 11/04 -initially planned for kidney biopsy, however was postponed due to unstable respiratory status. Eliquis resumed on 11/02 to cover COVID induced hypercoagulability. -Elevated troponin likely secondary to demand ischemia -patient has been having runs of nonsustained VT. -monitor and optimize electrolytes. -hemoglobin is stable. Continue to monitor. VTE: Eliquis Code: full Dispo: guarded prognosis.
[2020-11-16 13:26] LABS: Magnesium 2.1 mg/dL (1.8-2.4); Phosphorus 3.3 mg/dL (2.5-4.9)
[2020-11-16] MEDS: INSULIN GLARGINE 100 UNITS/ML SQ SCH (21:31)
[2020-11-17 05:41] LABS: Potassium 5.3 mmol/L (3.5-5.1)
[2020-11-17] MEDS: INSULIN -REGULAR HUMAN 50 UNIT/0.5 ML ML SQ SCH ×4 (07:30→20:55)
[2020-11-17] MEDS: TAMSULOSIN 0.4 MG SR CAP PO SCH (08:32)
[2020-11-17] MEDS: allopurinoL 100 MG TAB PO SCH (08:32)
[2020-11-17] MEDS: FUROSEMIDE 40 MG TABLET PO SCH ×2 (08:32→16:57)
[2020-11-17] MEDS: VITAMIN D 5,000 UNIT CAP PO SCH (08:33)
[2020-11-17] MEDS: METHYLPREDNISOLONE 40 MG INJ IV SCH ×2 (08:33→21:25)
[2020-11-17] MEDS: DOCUSATE NA 100 MG CAP PO SCH ×2 (08:33→21:25)
[2020-11-17] MEDS: APIXABAN 2.5 MG TABLET PO SCH ×2 (08:33→21:25)
[2020-11-17] MEDS: FAMOTIDINE 20 MG TAB PO SCH ×2 (08:33→21:25)
[2020-11-17] MEDS: SODIUM ZIRCONIUM CYCLOSILICATE PO SCH (08:33)
[2020-11-17] MEDS: MIDODRINE HCL 5 MG TABLET PO SCH ×2 (08:33→21:25)
[2020-11-17] MEDS: NEPRO SHAKE 237 ML CAN PO SCH ×2 (08:34→21:00)
[2020-11-17] MEDS: GUAIFENESIN 600 MG SA TAB PO SCH ×2 (08:35→21:26)
--- NOTE | 2020-11-17 11:50 | P.PN ---
Subjective Date of Service: 11/17/20 Chief Complaint: Respiratory failure Patient seen examined at bedside, currently on high-flow oxygen. On renal diet eating well. Review of Systems 10-point ROS is otherwise unremarkable Physical Examination - Vital Signs Temperature: 97.3 F Blood Pressure: 115/66 Pulse: 106 Respirations: 29 Pulse Ox (%): 90 - Physical Exam Other Physical/Emotional Findings: Physical exam not done d/t covid isolation - Studies Temp Pulse Resp BP Pulse Ox 97.3 F 106 H 29 H 115/66 90 L 11/17/20 08:00 11/17/20 08:32 11/17/20 08:00 11/17/20 08:32 11/17/20 08:00 Active Medications Albuterol Sulfate (Albuterol 2.5 Mg/3 Ml Neb Lizbeth) 2.5 mg NEB Q6HP PRN PRN Reason: SHORTNESS OF BREATH Allopurinol (Allopurinol 100 Mg Tab) 100 mg PO DAILY [facility] Last Admin: 11/17/20 08:32 Dose: 100 mg Documented by: Apixaban (Apixaban 2.5 Mg Tablet) 2.5 mg PO BID [facility] Last Admin: 11/17/20 08:33 Dose: 2.5 mg Documented by: Benzonatate (Benzonatate 100 Mg Cap) 200 mg PO TID PRN PRN Reason: COUGH Last Admin: 11/16/20 08:35 Dose: 200 mg Documented by: Calcitriol (Calcitrol 0.25 Mcg Cap) 0.25 mcg PO Q48H [facility] Last Admin: 11/15/20 12:53 Dose: 0.25 mcg Documented by: Calcium Carbonate/Glycine (Calcium Carbonate Chew 500mg Tab) 500 mg PO QID PRN PRN Reason: INDIGESTION Cholecalciferol (Vitamin D 5,000 Unit Cap) 5,000 unit PO DAILY [facility] Last Admin: 11/17/20 08:33 Dose: 5,000 unit Documented by: Dextrose (D50w 25 Gm/50 Ml Vial) 12.5 gm IV PRN PRN; Protocol PRN Reason: HYPOGLYCEMIA Docusate Sodium (Docusate Na 100 Mg Cap) 100 mg PO BID [facility] Last Admin: 11/17/20 08:33 Dose: 100 mg Documented by: Enteral Nutritional Formula (Nepro Shake 237 Ml Can) 237 ml PO BID [facility] Last Admin: 11/17/20 08:34 Dose: Not Given Documented by: Enteral Nutritional Formula (Nepro 1,000 Ml Bot) 0 ml RTH CONT VICK Epoetin Tremaine (Epoetin Tremaine 10,000 Unit/Ml Vial) 10,000 unit IV EVERY HD [facility] Last Admin: 11/15/20 15:15 Dose: 10,000 unit Documented by: Famotidine (Famotidine 20 Mg Tab) 20 mg PO BID [facility]; Protocol Last Admin: 11/17/20 08:33 Dose: 20 mg Documented by: Furosemide (Furosemide 40 Mg Tablet) 80 mg PO BIDL [facility] Last Admin: 11/17/20 08:32 Dose: 80 mg Documented by: Glucagon (Glucagon 1 Mg/Vial) 1 mg IM 1X PRN; Protocol PRN Reason: HYPOGLYCEMIA Guaifenesin (Guaifenesin 600 Mg Sa Tab) 1,200 mg PO BID [facility] Last Admin: 11/17/20 08:35 Dose: 1,200 mg Documented by: Heparin Sodium (Porcine) (Heparin 1,000 Unit/Ml Vial) 8,000 unit IV EVERY HD PRN PRN Reason: dialysis Last Admin: 11/15/20 16:05 Dose: 8,000 unit Documented by: Home Med (Sodium Zirconium Cyclosilicate [Lokelma]) 10 gm PO DAILY [facility] Last Admin: 11/17/20 08:33 Dose: Not Given Documented by: Albumin Human (Albumin 25%) 50 mls @ 100 mls/hr IV EVERY HD [facility] Sodium Chloride (Sodium Chloride) 250 mls @ 0 mls/hr IV .Q0M [facility] Insulin Glargine (Insulin Glargine 100 Units/Ml) 10 units SQ BEDTIME [facility] Last Admin: 11/16/20 21:31 Dose: 10 units Documented by: Insulin Human Regular (Insulin -Regular Human 50 Unit/0.5 Ml Ml) 0 unit SQ ACHS [facility]; Protocol Last Admin: 11/17/20 07:30 Dose: Not Given Documented by: Methylprednisolone Sodium Succinate (Methylprednisolone 40 Mg Inj) 40 mg IV TID [facility] Last Admin: 11/17/20 08:33 Dose: 40 mg Documented by: Midodrine (Midodrine Hcl 5 Mg Tablet) 10 mg PO EVERY HD [facility] Last Admin: 11/16/20 21:29 Dose: 10 mg Documented by: Midodrine (Midodrine Hcl 5 Mg Tablet) 5 mg PO BID [facility] Last Admin: 11/17/20 08:33 Dose: 5 mg Documented by: Sodium Chloride (Flush Normal Saline 10 Ml) 10 ml IV BID [facility] Last Admin: 11/17/20 08:33 Dose: 10 ml Documented by: Tamsulosin HCl (Tamsulosin 0.4 Mg Sr Cap) 0.4 mg PO DAILY [facility] Last Admin: 11/17/20 08:32 Dose: 0.4 mg Documented by: Assessment And Plan - Plan General: Alert, In no apparent distress HEENT: Atraumatic, Normocephalic Neck: Supple, 2+ carotid pulse no bruit Respiratory: Diminished Cardiovascular: No edema, Normal pulses, Regular rate/rhythm Capillary refill: <2 Seconds Gastrointestinal: Normal bowel sounds, Non-distended Musculoskeletal: No clubbing, No swelling, No contractures Integumentary: No rashes, No breakdown, No significant lesion Conclusions/Impression: Assessment: -COVID 19 pneumonia -diffuse proliferative glomerular nephritis with CKD -CKD stage 4 -anemia Plan: -patient currently on Solu-Medrol, dexamethasone DC. Continue oxygen supplementation. Chest x-ray shows bilateral pulmonary opacities, pulmonary on board. Prognosis remains guarded. Clinically patient is doing better, weaned off of BiPAP/CPAP currently utilizing high-flow oxygen. Tolerating a renal diet. Once the patient is stabilized, consider transferring the patient to long-term acute care. We will follow the patient as needed. No new recommendation at this time. -patient's is immunocompromised due to history chemotherapy/immunosuppressive drug use due to glomerular nephritis. Continue to monitor closely for any signs or symptoms of infection. Patient is on steroids. Has completed 2 week course of broad-spectrum antibiotic coverage. -medical management per primary team -continue monitor CBC and BMP -continue monitor for signs infection Plan of care discussed with Dr. Holland. Thank you for consultation. Physician Review: Patient Assessed, Agree with Above Assessment and Plan
[2020-11-17] MEDS: CALCITROL 0.25 MCG CAP PO SCH (11:53)
--- NOTE | 2020-11-17 12:27 | P.PN ---
Subjective Date of Service: 11/17/20 Chief Complaint: Respiratory failure Patient is doing well no new complaints is still requiring high concentrations of oxygen Review of Systems General: Weakness Respiratory: Shortness of Breath Physical Examination - Vital Signs Temperature: 97.3 F Blood Pressure: 115/66 Pulse: 106 Respirations: 29 Pulse Ox (%): 90 - Physical Exam Other Physical/Emotional Findings: Physical exam not done d/t covid isolation Assessment & Plan - Problems (Diagnosis) (1) Pneumonia due to coronavirus disease 2019 Current Visit: Yes Status: Acute Plan: Patient is doing well is much better he is more alert responsive cooperative plan to titrate him down on his oxygen the do Solu-Medrol to 40 mg SQ b.i.d. patient is mildly hypokalemic white count is mildly elevated chest x-ray reviewed still less some interstitial changes Physician Review: Patient Assessed, Agree with Above Assessment and Plan
[2020-11-17 15:45] LABS: Potassium 4.7 mmol/L (3.5-5.1)
--- NOTE | 2020-11-17 18:01 | P.PN ---
Subjective Date of Service: 11/17/20 Chief Complaint: Respiratory failure Patient tolerating high-flow oxygen. FiO2 weaned down to 70%, flow weaned down to 25 L per Min He is now tolerating diet. Patient is eating well. Good urine output. Physical Examination - Vital Signs Temperature: 97.2 F Blood Pressure: 100/58 Pulse: 96 Respirations: 22 Pulse Ox (%): 94 - Physical Exam General: Alert, In no apparent distress Neck: JVD not distended Respiratory: Other (Nonlabored breathing.) Cardiovascular: Regular rate/rhythm, Normal S1 S2 Gastrointestinal: Soft and benign, Non-distended, No tenderness Musculoskeletal: No swelling Integumentary: Other (Excoriation at the bridge of nose-dressed.) Neurological: Normal strength at 5/5 x4 extr Other Physical/Emotional Findings: Physical exam not done d/t covid isolation Assessment And Plan Physician Review: Patient Assessed, Agree with Above Assessment and Plan Physician Review Additional Text: Problem List Acute hypoxemic respiratory failure secondary to Covid 19 pneumonia NSTEMI Hypotension 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 -he is gradually improving. -continue steroids, vitamin supplementation -continue to wean oxygen as tolerated. -feed by mouth as tolerated. -hemodialysis per nephrology. -Lasix per nephrology -he is on midodrine for hypotension -patient was on cellcept and immunocompromised. received merrem and vanc for ~2 weeks for concern of bacterial superinfection, antibiotics discontinued on 11/04 -initially planned for kidney biopsy, however was postponed due to unstable respiratory status. Eliquis resumed on 11/02 to cover COVID induced hypercoagulability. -Elevated troponin likely secondary to demand ischemia -patient has been having runs of nonsustained VT. -monitor and optimize electrolytes. -hemoglobin is stable. Continue to monitor. VTE: Eliquis Code: full Dispo: guarded prognosis.
[2020-11-17] MEDS: INSULIN GLARGINE 100 UNITS/ML SQ SCH (20:54)
--- NOTE | 2020-11-18 03:04 | PN ---
Date of Progress Note: 11/17/2020 Subjective: Patient remains in ICU. He is admitted for COVID pneumonia. He had multiple medical hi story previously. 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 He was diagnosed with ANCA vasculitis. During this admission, ANCA test is negative. The patient has COVID pneumonia and remains on high oxygen flow. The patient received dialysis on . Urine output is improving. Patient was found to have borderline hyperkalemia and potassium level was re-evaluated this evening. Review of Systems: Denies new complaints. Review of systems is unobtainable. Physical Examination: Lungs: Few rhonchi. Heart: S1, S2. Abdomen: Soft, benign. Extremities: No edema. Impression And Plan: 1.Acute kidney injury with history of ANCA vasculitis. During this admission, ANCA is negative. Flavio higgins previously was on Cellcept. Cellcept is on hold due to COVID pneumonia. Patient developed acu te kidney injury secondary to ATN, although urine output is improving. Less likely the patient has P auci-immune glomerulonephritis. The patient will continue dialysis on Tuesday, , and y. Continue Lasix for volume overload. 2.Mycophenolate mofetil is on hold due to pneumonia. Continue treatment for COVID pneumonia. 3.Septic shock. Blood pressure improving. Continue midodrine. 4.Dialysis tomorrow. EB/MODL Voice ID: [id number] Report ID: [id number]
[2020-11-18 04:53] LABS: Absolute Lymphocytes (CBC) 0.1 K/uL (0.7-4.9); Basophils % 0.2 % (0-1.3); Hematocrit 27.9 % (39.6-49.0); MPV 10.7 fL (7.6-11.3); RBC Red Blood Cell Count 3.13 M/uL (4.33-5.43)
[2020-11-18 05:39] LABS: C-Reactive Protein 11.3 mg/L (<3.00); Ferritin 304.4 ng/mL (26-388); Magnesium 2.4 mg/dL (1.8-2.4); Phosphorus 5.6 mg/dL (2.5-4.9)
[2020-11-18] MEDS: INSULIN -REGULAR HUMAN 50 UNIT/0.5 ML ML SQ SCH ×4 (07:30→21:00)
[2020-11-18] MEDS: METHYLPREDNISOLONE 40 MG INJ IV SCH ×2 (08:17→21:33)
[2020-11-18] MEDS: DOCUSATE NA 100 MG CAP PO SCH ×2 (08:18→21:31)
[2020-11-18] MEDS: FUROSEMIDE 40 MG TABLET PO SCH ×2 (08:18→17:06)
[2020-11-18] MEDS: FAMOTIDINE 20 MG TAB PO SCH ×2 (08:18→21:31)
[2020-11-18] MEDS: SODIUM ZIRCONIUM CYCLOSILICATE PO SCH (08:19)
[2020-11-18] MEDS: allopurinoL 100 MG TAB PO SCH (08:19)
[2020-11-18] MEDS: APIXABAN 2.5 MG TABLET PO SCH ×2 (08:19→21:31)
[2020-11-18] MEDS: VITAMIN D 5,000 UNIT CAP PO SCH (08:19)
[2020-11-18] MEDS: TAMSULOSIN 0.4 MG SR CAP PO SCH (08:19)
[2020-11-18] MEDS: NEPRO SHAKE 237 ML CAN PO SCH ×2 (08:20→21:00)
[2020-11-18] MEDS: MIDODRINE HCL 5 MG TABLET PO SCH ×3 (08:20→21:31)
[2020-11-18] MEDS: GUAIFENESIN 600 MG SA TAB PO SCH ×2 (08:21→21:31)
--- NOTE | 2020-11-18 09:26 | P.PN ---
Subjective Date of Service: 11/18/20 Chief Complaint: Respiratory failure Subjective: No new changes (feels ok this morning, voiding without issue, on HFNC, states he feels about same as yesterday. no new complaints) Review of Systems 10-point ROS is otherwise unremarkable Physical Examination - Vital Signs Temperature: 96.8 F Blood Pressure: 105/61 Pulse: 80 Respirations: 31 Pulse Ox (%): 91 - Physical Exam Other Physical/Emotional Findings: Physical exam not done d/t covid isolation Assessment & Plan Physician Review Additional Text: Physical Exam General: Alert, In no apparent distress Respiratory: nonlabored respirations on HFNC Cardiovascular: Regular rate/rhythm, no edema Gastrointestinal: Soft and benign, Non-distended, No tenderness Musculoskeletal: No swelling Neuro/Psych: moving all extremities, normal affect Problem List Acute hypoxemic respiratory failure secondary to Covid 19 pneumonia NSTEMI Hypotension 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 -gradually improving. -continue steroids, vitamin supplementation, wean O2 as tolerated. on HFNC now -tolerating more PO diet -HD/lasix per nephrology. on midodrine for hypotension -patient was on cellcept and immunocompromised. received merrem and vanc for ~2 weeks for concern of bacterial superinfection, antibiotics discontinued on 11/04 -initially planned for kidney biopsy, however was postponed due to unstable respiratory status. Eliquis resumed on 11/02 to cover COVID induced hypercoagulability. -Elevated troponin likely secondary to demand ischemia. patient has been having runs of nonsustained VT. -continue to monitor and optimize electrolytes. -hemoglobin stable. Continue to monitor. VTE: Eliquis Code: full Dispo: guarded prognosis, seems to be gradually improving Time Spent Managing Pts Care (In Minutes): 35
--- NOTE | 2020-11-18 10:36 | P.PN ---
Subjective Date of Service: 11/18/20 Chief Complaint: Respiratory failure Patient seen examined at bedside, currently on high-flow oxygen. No acute complaints. Review of Systems 10-point ROS is otherwise unremarkable Physical Examination - Vital Signs Temperature: 96.8 F Blood Pressure: 105/61 Pulse: 80 Respirations: 31 Pulse Ox (%): 91 - Physical Exam Other Physical/Emotional Findings: Physical exam not done d/t covid isolation - Studies Temp Pulse Resp BP Pulse Ox 96.8 F 80 31 H 105/61 91 11/18/20 09:26 11/18/20 09:26 11/18/20 09:26 11/18/20 09:26 11/18/20 09:26 Laboratory Last Values WBC 8.10 K/uL (4.3-10.9) 10/22/20 12:45 RBC 3.60 M/uL (4.33-5.43) L 10/22/20 12:45 Hgb 9.8 g/dL (13.6-17.9) L 10/22/20 12:45 Hct 31.4 % (39.6-49.0) L 10/22/20 12:45 MCV 87.4 fL (80-100) D 10/22/20 12:45 MCH 27.1 pg (27.0-35.0) 10/22/20 12:45 MCHC 31.0 g/dL (32.0-36.0) L 10/22/20 12:45 RDW 15.5 % (12.1-15.2) H 10/22/20 12:45 Plt Count 209 K/uL (152-406) 10/22/20 12:45 MPV 8.9 fL (7.6-11.3) 10/22/20 12:45 Neutrophils % 89.2 % (41.7-73.7) H 10/22/20 12:45 Lymphocytes % 3.5 % (15.3-44.8) L 10/22/20 12:45 Monocytes % 7.0 % (3.3-12.3) 10/22/20 12:45 Eosinophils % 0.0 % (0-4.4) 10/22/20 12:45 Basophils % 0.3 % (0-1.3) 10/22/20 12:45 Absolute Neutrophils 7.3 K/uL (1.8-8.0) 10/22/20 12:45 Absolute Lymphocytes 0.3 K/uL (0.7-4.9) L 10/22/20 12:45 Absolute Monocytes 0.6 K/uL (0.1-1.3) 10/22/20 12:45 Absolute Eosinophils 0.0 K/uL (0-0.5) 10/22/20 12:45 Absolute Basophils 0.0 K/uL (0-0.5) 10/22/20 12:45 Platelet Estimate Adeq 10/22/20 12:45 Morphology Comment Not seen (NOT SEEN) 10/22/20 12:45 Sodium 140 mmol/L (136-145) 10/22/20 12:45 Potassium 4.2 mmol/L (3.5-5.1) 10/22/20 12:45 Chloride 108 mmol/L (98-107) H 10/22/20 12:45 Carbon Dioxide 15 mmol/L (21-32) L 10/22/20 12:45 BUN 96 mg/dL (7-18) H 10/22/20 12:45 Creatinine 6.01 mg/dL (0.55-1.3) H* 10/22/20 12:45 Estimated GFR 9 mL/min (=/>90) L 10/22/20 12:45 Glucose 102 mg/dL (74-106) 10/22/20 12:45 Lactic Acid 1.0 mmol/L (0.4-2.0) 10/22/20 12:48 Calcium 7.0 mg/dL (8.5-10.1) L 10/22/20 12:45 Procalcitonin 0.39 ng/mL (<0.050) H 10/22/20 12:45 Influenza Type A RNA Negative (NEGATIVE) 10/22/20 12:38 Influenza Type B RNA Negative (NEGATIVE) 10/22/20 12:38 SARS-CoV-2 RNA (RT-PCR) Positive (NEGATIVE) A 10/22/20 12:38 Smear Scan Ok (OK) 10/22/20 12:45 Assessment And Plan - Plan General: Alert, In no apparent distress HEENT: Atraumatic, Normocephalic. Skin abrasion 2 nasal drainage due to BiPAP. Skin abrasions on posterior aspect of bilateral years due to BiPAP. Neck: Supple, 2+ carotid pulse no bruit Respiratory: Diminished Cardiovascular: No edema, Normal pulses, Regular rate/rhythm Capillary refill: <2 Seconds Gastrointestinal: Normal bowel sounds, Non-distended Musculoskeletal: No clubbing, No swelling, No contractures Integumentary: No rashes, No breakdown, No significant lesion Conclusions/Impression: Assessment: -COVID 19 pneumonia -diffuse proliferative glomerular nephritis with CKD -CKD stage 4 -anemia Plan: -patient currently on Solu-Medrol, dexamethasone DC. Continue oxygen supplementation. Chest x-ray shows bilateral pulmonary opacities, pulmonary on board. Prognosis remains guarded. Chest x-ray taken on 11/16: No changes from previous imaging. Clinically patient is doing better, weaned off of BiPAP/CPAP currently utilizing high-flow oxygen. Tolerating a renal diet. Once the patient is stabilized, consider transferring the patient to long-term acute care. We will follow the patient as needed. No new recommendation at this time. -patient's is immunocompromised due to history chemotherapy/immunosuppressive drug use due to glomerular nephritis. Continue to monitor closely for any signs or symptoms of infection. Patient is on steroids. Has completed 2 week course of broad-spectrum antibiotic coverage. -medical management per primary team -continue monitor CBC and BMP -continue monitor for signs infection Plan of care discussed with Dr. Holland. Thank you for consultation. Physician Review: Patient Assessed, Agree with Above Assessment and Plan
--- NOTE | 2020-11-18 11:04 | PN ---
Date of Progress Note: 11/18/2020 Subjective: The patient was admitted with acute kidney injury secondary to cardiorenal, toxic ATN, poor perfusion, ATN and COVID nephropathy. ANCA induced vasculitis nephritis has been ruled out as serology was negative. Kidney function has been improved without any immunosuppressive treatment. The patient requiring dialysis for metabolic clearance. The patient still had good urine output. Physical Examination: Vital Signs: When I saw the patient; blood pressure 105/61, pulse of 80, afebrile. The patient had good urine output of 1100. Chest: Crackles bilateral. Heart: S1, S2. Systolic murmur. Abdomen: Soft, nontender. Extremities: No edema. Neuro: Alert. No focality. Laboratory Data: WBC 14.3 trending down, H and H 9/27.9, and platelet 190. Sodium 141, potassium 5, bicarb 28, BUN 115, creatinine 2.8, GFR 22, calcium 7.9, phosphorus 5.6, magnesium 2.4. C-reactive protein 11.3, trending down. Current Medications: The patient on include; 1. Albuterol. 2. Midodrine 10 mg with each dialysis. 3. Midodrine 5 b.i.d. 4. Flomax. 5. Epogen. 6. Tums q.i.d. 7. Lasix 80 b.i.d. 8. Nepro. 9. Pepcid. 10. Allopurinol. Assessment And Plan: 1. Acute kidney injury, multifactorial, secondary to toxic ATN, cardiorenal, COVID nephropathy. ANCA induced vasculitis has been ruled out. I am going to continue the patient on current Lasix infusion to establish better volume control for the patient and we will monitor the patient closely. I am going to continue dialysis. We will use sodium module and low temperature to support blood pressure and we will monitor the patient. We will use midodrine before dialysis. 2. Hypertension. Keep holding all blood pressure medications. 3. COVID pneumonia as by Pulmonary. Solu-Medrol has been on taper currently b.i.d. 4. ANCA vasculitis. Keep holding immunosuppressive given the presence of his COVID pneumonia. time spend discussing the case with the patient , exam the patient face to face , placing order, discussing the case with the staff and hospitalist 45 min MISSAEL Voice ID: [id number] Report ID: [id number] KRISTEL
[2020-11-18] MEDS: MAGIC MOUTHWASH 180 ML BTL PO PRN ×2 (14:06→21:33)
[2020-11-18] MEDS: EPOETIN ALFA 10,000 UNIT/ML VIAL IV SCH (15:15)
--- NOTE | 2020-11-18 17:42 | EKG ---
Test Date: 2020-11-18 Test Time: 02:01:14 Deputy Editor In Chief: LIBBY MEASUREMENT RESULTS: Intervals: Rate: 65 IN: 108 QRSD: 128 QT: 418 QTc: 434 [place]: P: -7 IN: 108 QRS: 81 T: 37 INTERPRETIVE STATEMENTS: Sinus rhythm with marked sinus arrhythmia with short IN with occasional premature ventricular complexes Right bundle branch block Abnormal ECG Compared to ECG 10/28/2020 20:41:47 Ventricular premature complex(es) now present Sinus tachycardia no longer present Atrial premature complex(es) no longer present T-wave abnormality no longer present Possible ischemia no longer present Electronically Signed On 11-18-20 17:40:11 CDT by Dustin López
[2020-11-18] MEDS: INSULIN GLARGINE 100 UNITS/ML SQ SCH (21:00)
[2020-11-18] MEDS: BENZONATATE 100 MG CAP PO PRN (21:34)
[2020-11-19 05:06] LABS: Absolute Lymphocytes (CBC) 0.1 K/uL (0.7-4.9); Basophils % 0.4 % (0-1.3); Hematocrit 29.3 % (39.6-49.0); Lymphocytes % 0.7 % (15.3-44.8); MPV 10.7 fL (7.6-11.3); RBC Red Blood Cell Count 3.22 M/uL (4.33-5.43)
[2020-11-19 06:45] LABS: Albumin 2.3 g/dL (3.4-5.0); C-Reactive Protein 30.8 mg/L (<3.00); Ferritin 309.5 ng/mL (26-388); Magnesium 2.2 mg/dL (1.8-2.4); Phosphorus 4.8 mg/dL (2.5-4.9); Potassium 4.8 mmol/L (3.5-5.1)
--- NOTE | 2020-11-19 07:07 | P.PN ---
Subjective Date of Service: 11/19/20 Chief Complaint: Respiratory failure C/o SOB & gen weakness. Physical Examination - Vital Signs Temperature: 97.7 F Blood Pressure: 110/63 Pulse: 81 Respirations: 23 Pulse Ox (%): 99 - Physical Exam General: Mild distress HEENT: Atraumatic, Normocephalic Neck: Supple Respiratory: Crackles/rales (bibasilar), Other (Symmetric chest expansion) Cardiovascular: No rubs, No murmurs Gastrointestinal: Soft and benign, Non-distended Musculoskeletal: No swelling Neurological: Other (Non-focal) Other Physical/Emotional Findings: Physical exam not done d/t covid isolation Assessment And Plan - Plan # SCAR likely 2/2 ATN +/- CRS1, less likely PIGN flare Received HD during this admission Has hx of SCAR 2/2 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 No acute indication for HD today Cont lasix at 80 mg IV bid Monitor renal panel # PIGN MMF on hold d/t PNA # BPH Hx of prostate Ca s/p radiotx Cont flomax # Hypotension suspect from autonomic neuropathy aggravated by sepsis BP improved/stable on midodrine Cont midodrine Hx of Htn TSH& serum B12 wnl # Respi failure 2/2 COVID PNA Cont lasix as above He is diuresed adequately at this point. He has persistent coarse bibasilar rales likely 2/2 pulmo fibrosis/interstitial lung dse from covid pna, rather than pulmo edema Mngt per other services # CHF Cont lasix as above # Anemia Tsat low at 13% - defer IV iron therapy d/t acute infection B12 & folate not low TSH wnl Cont epogen # Hypocalcemia Improved Correction via HD & Ca supplement, & calcitriol & D suppl D3 suppl # HyperPO4 Phos now at goal Cont binder # Secondary hyperPTH Cont calcitriol 25OHD 19, low, cont high dose D3 suppl # Dispo Dc plan to LTAC ongoing Physician Review: Patient Assessed, Agree with Above Assessment and Plan
[2020-11-19] MEDS: FUROSEMIDE 40 MG TABLET PO SCH ×2 (08:27→16:46)
[2020-11-19] MEDS: METHYLPREDNISOLONE 40 MG INJ IV SCH ×2 (08:27→21:29)
[2020-11-19] MEDS: APIXABAN 2.5 MG TABLET PO SCH ×2 (08:28→21:29)
[2020-11-19] MEDS: DOCUSATE NA 100 MG CAP PO SCH ×2 (08:28→21:29)
[2020-11-19] MEDS: FAMOTIDINE 20 MG TAB PO SCH ×2 (08:28→21:28)
[2020-11-19] MEDS: MIDODRINE HCL 5 MG TABLET PO SCH ×2 (08:28→21:29)
[2020-11-19] MEDS: TAMSULOSIN 0.4 MG SR CAP PO SCH (08:28)
[2020-11-19] MEDS: allopurinoL 100 MG TAB PO SCH (08:28)
[2020-11-19] MEDS: SODIUM ZIRCONIUM CYCLOSILICATE PO SCH (08:29)
[2020-11-19] MEDS: NEPRO SHAKE 237 ML CAN PO SCH ×2 (08:29→21:00)
[2020-11-19] MEDS: INSULIN -REGULAR HUMAN 50 UNIT/0.5 ML ML SQ SCH ×4 (08:29→21:00)
[2020-11-19] MEDS: VITAMIN D 5,000 UNIT CAP PO SCH (08:29)
[2020-11-19] MEDS: GUAIFENESIN 600 MG SA TAB PO SCH ×2 (08:31→21:29)
[2020-11-19] MEDS: MAGIC MOUTHWASH 180 ML BTL PO PRN ×2 (08:34→21:32)
--- NOTE | 2020-11-19 09:36 | P.PN ---
Subjective Date of Service: 11/19/20 Chief Complaint: Respiratory failure Patient seen examined at bedside, currently on high-flow oxygen. Tolerating diet well. Complains of soreness to bilateral ears and nasal bridge. Recommend applying barrier cream to areas. Review of Systems 10-point ROS is otherwise unremarkable Physical Examination - Vital Signs Temperature: 97.7 F Blood Pressure: 104/58 Pulse: 100 Respirations: 23 Pulse Ox (%): 99 - Physical Exam Other Physical/Emotional Findings: Physical exam not done d/t covid isolation - Studies Temp Pulse Resp BP Pulse Ox 97.7 F 100 H 23 H 104/58 L 99 11/19/20 09:36 11/19/20 09:36 11/19/20 09:36 11/19/20 09:36 11/19/20 09:36 Active Medications Albuterol Sulfate (Albuterol 2.5 Mg/3 Ml Neb Lizbeth) 2.5 mg NEB Q6HP PRN PRN Reason: SHORTNESS OF BREATH Allopurinol (Allopurinol 100 Mg Tab) 100 mg PO DAILY [facility] Last Admin: 11/19/20 08:28 Dose: 100 mg Documented by: Apixaban (Apixaban 2.5 Mg Tablet) 2.5 mg PO BID [facility] Last Admin: 11/19/20 08:28 Dose: 2.5 mg Documented by: Benzonatate (Benzonatate 100 Mg Cap) 200 mg PO TID PRN PRN Reason: COUGH Last Admin: 11/18/20 21:34 Dose: 200 mg Documented by: Calcitriol (Calcitrol 0.25 Mcg Cap) 0.25 mcg PO Q48H [facility] Last Admin: 11/17/20 11:53 Dose: 0.25 mcg Documented by: Calcium Carbonate/Glycine (Calcium Carbonate Chew 500mg Tab) 500 mg PO QID PRN PRN Reason: INDIGESTION Cholecalciferol (Vitamin D 5,000 Unit Cap) 5,000 unit PO DAILY [facility] Last Admin: 11/19/20 08:29 Dose: 5,000 unit Documented by: Dextrose (D50w 25 Gm/50 Ml Vial) 12.5 gm IV PRN PRN; Protocol PRN Reason: HYPOGLYCEMIA Diphenhydr/Magaldrate/Simeth/Lidoca (Magic Mouthwash 180 Ml Btl) 15 ml PO QID PRN PRN Reason: SORE THROAT Last Admin: 11/19/20 08:34 Dose: 15 ml Documented by: Docusate Sodium (Docusate Na 100 Mg Cap) 100 mg PO BID [facility] Last Admin: 11/19/20 08:28 Dose: 100 mg Documented by: Enteral Nutritional Formula (Nepro Shake 237 Ml Can) 237 ml PO BID [facility] Last Admin: 11/19/20 08:29 Dose: Not Given Documented by: Enteral Nutritional Formula (Nepro 1,000 Ml Bot) 0 ml RTH CONT [facility] Epoetin Tremaine (Epoetin Tremaine 10,000 Unit/Ml Vial) 10,000 unit IV EVERY HD [facility] Last Admin: 11/18/20 15:15 Dose: 10,000 unit Documented by: Famotidine (Famotidine 20 Mg Tab) 20 mg PO BID [facility]; Protocol Last Admin: 11/19/20 08:28 Dose: 20 mg Documented by: Furosemide (Furosemide 40 Mg Tablet) 80 mg PO BIDL [facility] Last Admin: 11/19/20 08:27 Dose: 80 mg Documented by: Glucagon (Glucagon 1 Mg/Vial) 1 mg IM 1X PRN; Protocol PRN Reason: HYPOGLYCEMIA Guaifenesin (Guaifenesin 600 Mg Sa Tab) 1,200 mg PO BID [facility] Last Admin: 11/19/20 08:31 Dose: 1,200 mg Documented by: Heparin Sodium (Porcine) (Heparin 1,000 Unit/Ml Vial) 8,000 unit IV EVERY HD PRN PRN Reason: dialysis Last Admin: 11/18/20 15:33 Dose: 8,000 unit Documented by: Home Med (Sodium Zirconium Cyclosilicate [Lokelma]) 10 gm PO DAILY [facility] Last Admin: 11/19/20 08:29 Dose: Not Given Documented by: Albumin Human (Albumin 25%) 50 mls @ 100 mls/hr IV EVERY HD [facility] Sodium Chloride (Sodium Chloride) 250 mls @ 0 mls/hr IV .Q0M [facility] Insulin Glargine (Insulin Glargine 100 Units/Ml) 10 units SQ BEDTIME [facility] Last Admin: 11/18/20 21:00 Dose: Not Given Documented by: Insulin Human Regular (Insulin -Regular Human 50 Unit/0.5 Ml Ml) 0 unit SQ ACHS [facility]; Protocol Last Admin: 11/19/20 08:29 Dose: 3 unit Documented by: Methylprednisolone Sodium Succinate (Methylprednisolone 40 Mg Inj) 40 mg IV BID [facility] Last Admin: 11/19/20 08:27 Dose: 40 mg Documented by: Midodrine (Midodrine Hcl 5 Mg Tablet) 10 mg PO EVERY HD [facility] Last Admin: 11/18/20 11:31 Dose: 10 mg Documented by: Midodrine (Midodrine Hcl 5 Mg Tablet) 5 mg PO BID [facility] Last Admin: 11/19/20 08:28 Dose: 5 mg Documented by: Sodium Chloride (Flush Normal Saline 10 Ml) 10 ml IV BID [facility] Last Admin: 11/19/20 08:29 Dose: 10 ml Documented by: Tamsulosin HCl (Tamsulosin 0.4 Mg Sr Cap) 0.4 mg PO DAILY [facility] Last Admin: 11/19/20 08:28 Dose: 0.4 mg Documented by: Assessment And Plan - Plan General: Alert, In no apparent distress HEENT: Atraumatic, Normocephalic. Skin abrasion 2 nasal drainage due to BiPAP. Skin abrasions on posterior aspect of bilateral years due to BiPAP. Neck: Supple, 2+ carotid pulse no bruit Respiratory: Diminished Cardiovascular: No edema, Normal pulses, Regular rate/rhythm Capillary refill: <2 Seconds Gastrointestinal: Normal bowel sounds, Non-distended Musculoskeletal: No clubbing, No swelling, No contractures Integumentary: No rashes, No breakdown, No significant lesion Conclusions/Impression: Assessment: -COVID 19 pneumonia -diffuse proliferative glomerular nephritis with CKD -CKD stage 4 -anemia Plan: -patient currently on Solu-Medrol, dexamethasone DC. Continue oxygen supplementation. Chest x-ray shows bilateral pulmonary opacities, pulmonary on board. Prognosis remains guarded. Chest x-ray taken on 11/16: No changes from previous imaging. Clinically patient is doing better, weaned off of BiPAP/CPAP currently utilizing high-flow oxygen. Tolerating a renal diet. Once the patient is stabilized, consider transferring the patient to long-term acute care. We will follow the patient as needed. No new recommendation at this time. -patient's is immunocompromised due to history chemotherapy/immunosuppressive drug use due to glomerular nephritis. Continue to monitor closely for any signs or symptoms of infection. Patient is on steroids. Has completed 2 week course of broad-spectrum antibiotic coverage. -medical management per primary team -continue monitor CBC and BMP -continue monitor for signs infection Plan of care discussed with Dr. Holland. Thank you for consultation. Physician Review: Patient Assessed, Agree with Above Assessment and Plan
--- NOTE | 2020-11-19 12:03 | P.PN ---
Subjective Date of Service: 11/19/20 Chief Complaint: Respiratory failure Subjective: Improving (s/p dialysis yesterday, tolerated well. reports he is feeling better today than he has in the past weeks. Weaning down on HFNC. Tolerating diet, voiding, and had BM 1-2 days ago.) Review of Systems 10-point ROS is otherwise unremarkable Physical Examination - Vital Signs Temperature: 97.7 F Blood Pressure: 124/69 Pulse: 76 Respirations: 21 Pulse Ox (%): 92 Assessment & Plan Physician Review Additional Text: Physical Exam General: Alert, In no apparent distress Respiratory: nonlabored respirations on HFNC, b/l crackles at bases Cardiovascular: Regular rate/rhythm, no edema Gastrointestinal: Soft and benign, Non-distended, No tenderness Musculoskeletal: No swelling Neuro/Psych: moving all extremities, normal affect, more expressive today Problem List Acute hypoxemic respiratory failure secondary to Covid 19 pneumonia NSTEMI Hypotension 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 -improving -continue steroids, vitamin supplementation, wean O2 as tolerated. on HFNC now, tried 6L NC temporarily -tolerating more PO diet -HD/lasix per nephrology. on midodrine for hypotension -patient was on cellcept and immunocompromised. received merrem and vanc for ~2 weeks for concern of bacterial superinfection, antibiotics discontinued on 11/04 -initially planned for kidney biopsy, however was postponed due to unstable respiratory status. Eliquis resumed on 11/02 to cover COVID induced hypercoagulability. -Elevated troponin likely secondary to demand ischemia. patient has been having runs of nonsustained VT - mostly have dialysis -continue to monitor and optimize electrolytes. -hemoglobin stable. Continue to monitor. -seems to be stabilizing with gradual improvement. Continues with crackles at bases, likely from some fibrosis -would likely benefit from LTAC for pulmonary rehab VTE: Eliquis Code: full Dispo: better prognosis, improving slowly Time Spent Managing Pts Care (In Minutes): 35
[2020-11-19] MEDS: CALCITROL 0.25 MCG CAP PO SCH (12:31)
[2020-11-19] MEDS: JUVEN PACKET PO SCH (21:00)
[2020-11-19] MEDS: BENZONATATE 100 MG CAP PO PRN (21:29)
--- NOTE | 2020-11-20 06:31 | P.PN ---
Subjective Date of Service: 11/20/20 Chief Complaint: Respiratory failure C/o SOB & gen weakness. 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 No acute indication for HD today Cont lasix at 80 mg IV bid Monitor renal panel # PIGN MMF on hold d/t PNA # BPH Hx of prostate Ca s/p radiotx Cont flomax # Hypotension suspect from autonomic neuropathy aggravated by sepsis BP improved/stable on midodrine Cont midodrine Hx of Htn TSH& serum B12 wnl # Respi failure 2/2 COVID PNA Cont lasix as above He is diuresed adequately at this point. He has persistent coarse bibasilar rales likely 2/2 pulmo fibrosis/interstitial lung dse from covid pna, rather than pulmo edema Mngt per other services # CHF Cont lasix as above # Anemia Tsat low at 13% - defer IV iron therapy d/t acute infection B12 & folate not low TSH wnl Cont epogen # Hypocalcemia Improved Correction via HD & Ca supplement, & calcitriol & D suppl D3 suppl # HyperPO4 Phos now at goal Cont binder # Secondary hyperPTH Cont calcitriol 25OHD 19, low, cont high dose D3 suppl # Dispo Dc plan to LTAC ongoing Physician Review: Patient Assessed, Agree with Above Assessment and Plan Physician Review Additional Text: Physical Exam General: Alert, In no apparent distress Respiratory: nonlabored respirations on HFNC Cardiovascular: Regular rate/rhythm, no edema Gastrointestinal: Soft and benign, Non-distended, No tenderness Musculoskeletal: No swelling Neuro/Psych: moving all extremities, normal affect Problem List Acute hypoxemic respiratory failure secondary to Covid 19 pneumonia NSTEMI Hypotension 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 -gradually improving. -continue steroids, vitamin supplementation, wean O2 as tolerated. on HFNC now -tolerating more PO diet -HD/lasix per nephrology. on midodrine for hypotension -patient was on cellcept and immunocompromised. received merrem and vanc for ~2 weeks for concern of bacterial superinfection, antibiotics discontinued on 11/04 -initially planned for kidney biopsy, however was postponed due to unstable respiratory status. Eliquis resumed on 11/02 to cover COVID induced hypercoagulability. -Elevated troponin likely secondary to demand ischemia. patient has been having runs of nonsustained VT. -continue to monitor and optimize electrolytes. -hemoglobin stable. Continue to monitor. VTE: Eliquis Code: full Dispo: guarded prognosis, seems to be gradually improving
[2020-11-20 07:10] LABS: Absolute Lymphocytes (CBC) 0.1 K/uL (0.7-4.9); Basophils % 0.1 % (0-1.3); Hematocrit 28.5 % (39.6-49.0); Lymphocytes % 1.4 % (15.3-44.8); MPV 10.3 fL (7.6-11.3); RBC Red Blood Cell Count 3.16 M/uL (4.33-5.43)
--- NOTE | 2020-11-20 07:29 | RAD REPORT ---
EXAM DESCRIPTION: RAD - Chest Single View - 11/20/2020 6:06 am CLINICAL HISTORY: covid, hypoxia COMPARISON: Portable November 16 TECHNIQUE: AP portable chest image was obtained 11/20/2020 6:06 am . FINDINGS: Interstitial and alveolar opacities have substantially improved. Cardiac silhouette has de creased in size as well. Central vasculature has diminished in prominence. Right-sided dialysis gayle ter remains in place. Feeding tube has been removed. Trachea is midline. No measurable pleural effusi on and no pneumothorax. No acute bony abnormality seen. No acute aortic findings suspected. IMPRESSION: Significant improvement in the bilateral pneumonia pattern. Significant improvement in the failure/ volume overload findings.
[2020-11-20] MEDS: INSULIN -REGULAR HUMAN 50 UNIT/0.5 ML ML SQ SCH ×4 (07:30→20:40)
[2020-11-20] MEDS: FUROSEMIDE 40 MG TABLET PO SCH ×2 (07:36→17:00)
[2020-11-20] MEDS: DOCUSATE NA 100 MG CAP PO SCH ×2 (07:37→20:02)
[2020-11-20] MEDS: METHYLPREDNISOLONE 40 MG INJ IV SCH ×2 (07:37→20:01)
[2020-11-20 07:50] LABS: Albumin 2.4 g/dL (3.4-5.0); C-Reactive Protein 47.9 mg/L (<3.00); Ferritin 339.1 ng/mL (26-388); Phosphorus 6.2 mg/dL (2.5-4.9)
[2020-11-20] MEDS: VITAMIN D 5,000 UNIT CAP PO SCH (07:52)
[2020-11-20] MEDS: allopurinoL 100 MG TAB PO SCH (07:52)
[2020-11-20] MEDS: TAMSULOSIN 0.4 MG SR CAP PO SCH (07:52)
[2020-11-20] MEDS: SODIUM ZIRCONIUM CYCLOSILICATE PO SCH (07:52)
[2020-11-20] MEDS: MIDODRINE HCL 5 MG TABLET PO SCH ×3 (07:53→20:01)
[2020-11-20] MEDS: FAMOTIDINE 20 MG TAB PO SCH ×2 (07:53→20:02)
[2020-11-20] MEDS: NEPRO SHAKE 237 ML CAN PO SCH ×2 (07:53→20:02)
[2020-11-20] MEDS: APIXABAN 2.5 MG TABLET PO SCH ×2 (07:54→20:01)
[2020-11-20] MEDS: GUAIFENESIN 600 MG SA TAB PO SCH ×2 (07:54→20:02)
[2020-11-20] MEDS: JUVEN PACKET PO SCH ×2 (07:54→20:02)
[2020-11-20 08:11] LABS: Anisocytosis 2+; Blood Morphology Comment NOTED (NOT SEEN); Macrocytosis SLIGHT; Platelet Estimate ADEQ; Polychromasia 2+; Toxic Granulation 1+; White Blood Cell Scan OK (OK)
[2020-11-20] MEDS: MAGIC MOUTHWASH 180 ML BTL PO PRN (10:08)
[2020-11-20] MEDS: EPOETIN ALFA 10,000 UNIT/ML VIAL IV SCH (13:45)
[2020-11-20] MEDS ORDERED: AMIODARONE HCL 150 MG in D5W 100 ML IV STA (14:30)
[2020-11-20] MEDS: ALBUMIN HUMAN 25% 100 ML IV ONE ×2 (14:32→15:01)
[2020-11-20] MEDS: AMIODARONE HCL 900 MG in Dextrose 5%-Water 482 ML IV SCH (15:11)
--- NOTE | 2020-11-20 15:47 | P.PN ---
Subjective Date of Service: 11/20/20 Chief Complaint: Respiratory failure Subjective: Improving (no acute events overnight. off/on HFNC and 6 LNC, feeling better, without complaints. no nausea/vomiting. appetite ok) Review of Systems 10-point ROS is otherwise unremarkable Physical Examination - Vital Signs Temperature: 96.8 F Blood Pressure: 124/65 Pulse: 79 Respirations: 19 Pulse Ox (%): 99 Assessment & Plan Physician Review: Patient Assessed, Agree with Above Assessment and Plan Physician Review Additional Text: Physical Exam General: Alert, In no apparent distress Respiratory: nonlabored respirations on 6L NC, faint b/l crackles at bases Cardiovascular: Regular rate/rhythm, no edema Gastrointestinal: Soft and benign, Non-distended, No tenderness Musculoskeletal: No swelling Neuro/Psych: moving all extremities, normal affect Problem List Acute hypoxemic respiratory failure secondary to Covid 19 pneumonia NSTEMI Hypotension 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 -improving -continue steroids, vitamin supplementation, wean O2 as tolerated. seems to be tolerating 6L NC for longer periods now -tolerating PO diet -no BM in ~3 days, patient states he would like to try and sit on bedside commode, if not, will try dulcolax -HD/lasix per nephrology. on midodrine for hypotension -patient was on cellcept and immunocompromised. received merrem and vanc for ~2 weeks for concern of bacterial superinfection, antibiotics discontinued on 11/04 -initially planned for kidney biopsy, however was postponed due to unstable respiratory status. Eliquis resumed on 11/02 to cover COVID induced hypercoagulability. -Elevated troponin likely secondary to demand ischemia. patient has been having runs of nonsustained VT - mostly during or just after dialysis -continue to monitor and optimize electrolytes. -hemoglobin stable. -seems to be stabilizing with gradual improvement. Continues with crackles at bases, likely from some fibrosis -would likely benefit from LTAC for pulmonary rehab and ongoing management/care VTE: Eliquis Code: full Dispo: better prognosis, improving slowly, LTAC referral sent, awaiting response Time Spent Managing Pts Care (In Minutes): 35
[2020-11-20] MEDS ORDERED: METOPROLOL TARTRATE 5 MG/5 ML INJ IV STA (17:18)
--- NOTE | 2020-11-20 18:36 | PN ---
Date of Progress Note: 11/20/2020 Subjective: The patient was admitted with COVID pneumonia with history of ANCA- induced vasculitis nephropathy. The patient had acute kidney injury. It was secondary to COVID nephropathy, cardiorenal, nonoliguric. The patient re- initiated on dialysis, still nonoliguric. The patient maintained on Lasix. Physical Examination: Vital Signs: Blood pressure 124/65, pulse of 79, afebrile. Chest: Rales bilateral. Heart: S1, S2. Systolic murmur. Abdomen: Soft, nontender. Extremities: No edema. Neuro: Alert. No focality. Pleasantly confused. Laboratory Data: H and H 9.3/28.5, WBC down to 9.3. Sodium 139, potassium 5, bicarb 27, BUN 89, creatinine 3, GFR of 20 pre-dialysis, calcium 7.7, phosphorus 6.2, C-reactive protein 47, albumin 2.4. Current Medications: The patient on include midodrine 10 before dialysis and 5 b.i.d., Eliquis, Lasix 80 b.i.d., calcium carbonate 500, Pepcid. Assessment And Plan: 1. Acute kidney injury secondary to cardiorenal on advanced chronic kidney disease with severe disproportion in BUN and creatinine, nonoliguric. Currently, looked to me on the normal volume side. I am going to continue today for the dialysis. We will plan to start tapering off the dialysis and we will monitor. 2. Disproportion in BUN and creatinine secondary to catabolic state. The patient is getting dialysis for clearance. We will follow up with Pulmonary about start tapering the prednisone. 3. Vasculitis/nephritis, stable. I do not see the acute kidney injury as a sign of any activity of his vasculitis. We will follow up. We will keep holding CellCept for the time being given the recent COVID pneumonia. 4. Respiratory failure secondary to COVID pneumonia. We will follow up with Pulmonary. time spend discussing the case with the patient , exam the patient face to face , placing order, discussing the case with the staff and hospitalist 45 min MISSAEL Voice ID: [id number] Report ID: [id number] KRISTEL
--- NOTE | 2020-11-20 19:05 | PN ---
Date of Progress Note: 11/20/2020 DIALYSIS NOTE Subjective: The patient seen on dialysis more awake. Objective: Vital Signs: Blood pressure 129/70, pulse of 88. Chest: Rales bilateral. Heart: S1, S2. Systolic murmur. Abdomen: Soft, nontender. Extremities: No edema. Laboratory Data: H and H 9.3/28.5. Sodium 139, potassium 5, bicarb 27, BUN 89, creatinine 3.03. Assessment And Plan: 1. Acute kidney injury, nonoliguric, euvolemic currently. I am going to continue dialysis for metabolic clearance given the marginal blood pressure. I am going to continue sodium module and low temperature. We will change the ultrafiltration profile to profile #3 to avoid low blood pressure by end of the dialysis and we will monitor the patient. We will still not challenge the patient during the dialysis to avoid low blood pressure and the patient being euvolemic. 2. Hyperkalemia. The patient is going to be dialyzed on low-potassium bath. 3. Hypertension. Continue midodrine support, albumin and low temperature with sodium module. 4. COVID pneumonia. Continue current treatment. We will follow up with Pulmonary. 5. Deconditioning. Continue PT/OT. time spend discussing the case with the patient , exam the patient face to face , placing order, discussing the case with the staff and hospitalist 45 min MISSAEL Voice ID: [id number] Report ID: [id number] MTDD
--- NOTE | 2020-11-21 05:45 | P.PN ---
Subjective Date of Service: 11/21/20 Chief Complaint: Respiratory failure Was hypotensive today & was noted to be hypoxic & was coughing when he drank fluids. 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 BP improved somewhat after 2L IV fliud bolus IV vasopressor if needed, to keep MAP > 65 Start D5W 30 cc/hr; to meet daily free water requirements; May switch D5W gtt to tube water flushes once dobhoff tube is in Hold lasix Monitor renal panel, I/O # PIGN MMF on hold d/t PNA # BPH Hx of prostate Ca s/p radiotx Cont flomax # Hypotension worsened today probably 2/2 pulmonary sepsis related to aspiration TSH& serum B12 wnl Has baseline hypotension suspect from autonomic neuropathy aggravated by sepsis Inc midodrine dose to 15 mg po tid Received 2L IV bolus today w/ some improvement in BP IV vasopressor if need to keep MAP > 65 Hold lasix Hx of Htn Sepsis workup/mngt per primary team # Respi failure 2/2 COVID PNA He is diuresed adequately at this point. He has persistent coarse bibasilar rales likely 2/2 pulmo fibrosis/interstitial lung dse from covid pna, rather than pulmo edema Mngt per Pulmonary service c/o Dr. Cat # Dysphagia Recommend to be NPO for now Agree w/ Dobhoff tube placement; may switch D5W gtt to tube water flushes 125 cc q6h when dobhoff in place # CHF Hold lasix d/t hypotension # Anemia Tsat low at 13% - defer IV iron therapy d/t acute infection B12 & folate not low TSH wnl Cont epogen # Hypocalcemia Improved Correction via HD & Ca supplement, & calcitriol & D suppl D3 suppl # HyperPO4 Phos now at goal Cont binder # Secondary hyperPTH Cont calcitriol 25OHD 19, low, cont high dose D3 suppl Physician Review: Patient Assessed, Agree with Above Assessment and Plan
[2020-11-21 06:22] LABS: Albumin 2.5 g/dL (3.4-5.0); Bilirubin Total 0.8 mg/dL (0.2-1.0); Ferritin 322.8 ng/mL (26-388); Phosphorus 5.3 mg/dL (2.5-4.9); Protein, Total 5.9 g/dL (6.4-8.2)
[2020-11-21 06:23] LABS: Magnesium 2.2 mg/dL (1.8-2.4); Potassium 5.2 mmol/L (3.5-5.1)
[2020-11-21] MEDS: INSULIN -REGULAR HUMAN 50 UNIT/0.5 ML ML SQ SCH ×4 (07:30→21:00)
--- NOTE | 2020-11-21 08:46 | RAD REPORT ---
EXAM DESCRIPTION: RAD - Chest Single View - 11/21/2020 8:17 am CLINICAL HISTORY: f/u Chest pain. COMPARISON: Chest Single View dated 11/20/2020; Chest Single View dated 11/16/2020; Chest Single View d ated 11/11/2020; Chest Single View dated 11/08/2020 FINDINGS: Portable technique limits examination quality. Mild bilateral interstitial lung prominence is seen which may represent pulmonary edema or pneumonia. The heart is mildly enlarged in size. Right-sided venous catheter has tip in the SVC. IMPRESSION: Stable chest since 11/20/2020.
[2020-11-21] MEDS: SODIUM ZIRCONIUM CYCLOSILICATE PO SCH (09:00)
[2020-11-21] MEDS: JUVEN PACKET PO SCH ×2 (09:00→23:30)
[2020-11-21] MEDS: NEPRO SHAKE 237 ML CAN PO SCH ×2 (09:00→23:30)
[2020-11-21] MEDS: GUAIFENESIN 600 MG SA TAB PO SCH ×2 (09:07→21:10)
[2020-11-21] MEDS: FAMOTIDINE 20 MG TAB PO SCH ×2 (09:07→21:10)
[2020-11-21] MEDS: METHYLPREDNISOLONE 40 MG INJ IV SCH ×2 (09:07→21:09)
[2020-11-21] MEDS: allopurinoL 100 MG TAB PO SCH (09:08)
[2020-11-21] MEDS: TAMSULOSIN 0.4 MG SR CAP PO SCH (09:08)
[2020-11-21] MEDS: MIDODRINE HCL 5 MG TABLET PO SCH ×4 (09:08→14:18)
[2020-11-21] MEDS: FUROSEMIDE 40 MG TABLET PO SCH (09:08)
[2020-11-21] MEDS: VITAMIN D 5,000 UNIT CAP PO SCH (09:08)
[2020-11-21] MEDS: DOCUSATE NA 100 MG CAP PO SCH ×2 (09:08→21:00)
[2020-11-21] MEDS: APIXABAN 2.5 MG TABLET PO SCH ×2 (09:11→21:10)
[2020-11-21] MEDS ORDERED: NA CHLORIDE 0.9% 250 ML IV ONE (10:01)
[2020-11-21] MEDS ORDERED: MIDODRINE HCL 5 MG TABLET PO ONE (11:00)
[2020-11-21] MEDS ORDERED: NA CHLORIDE 0.9% 500 ML IV SCH (11:15)
[2020-11-21] MEDS ORDERED: NA CHLORIDE 0.9% 500 ML ONE (11:32)
--- NOTE | 2020-11-21 11:41 | P.PN ---
Subjective Date of Service: 11/21/20 Chief Complaint: Respiratory failure Patient seen examined at bedside, patient deteriorated over 92. Her nurse this patient started to become hypotensive overnight with holosystolic raining in the 60s. Patient also tachycardic, packet hemic, and febrile with a temperature of a 100.7. Blood cultures have been ordered. Patient was going to be transferred to [facility] however due to deterioration in condition and increased O2 demand he is to have a higher risk for [facility]. Patient started back on CPAP. Review of Systems 10-point ROS is otherwise unremarkable Physical Examination - Vital Signs Temperature: 100.7 F Blood Pressure: 71/41 Pulse: 99 Respirations: 24 Pulse Ox (%): 84 - Physical Exam Other Physical/Emotional Findings: Physical exam not done d/t covid isolation - Studies Temp Pulse Resp BP Pulse Ox 100.7 F 99 H 24 H 71/41 L 84 L 11/21/20 08:00 11/21/20 11:21 11/21/20 11:21 11/21/20 11:21 11/21/20 11:21 Assessment And Plan - Plan General: Alert, In no apparent distress HEENT: Atraumatic, Normocephalic. Skin abrasion 2 nasal drainage due to BiPAP. Skin abrasions on posterior aspect of bilateral years due to BiPAP. Neck: Supple, 2+ carotid pulse no bruit Respiratory: Diminished Cardiovascular: No edema, Normal pulses, Regular rate/rhythm Capillary refill: <2 Seconds Gastrointestinal: Normal bowel sounds, Non-distended Musculoskeletal: No clubbing, No swelling, No contractures Integumentary: No rashes, No breakdown, No significant lesion Conclusions/Impression: Assessment: -COVID 19 pneumonia -diffuse proliferative glomerular nephritis with CKD -CKD stage 4 -anemia Plan: -patient is currently febrile, hypotensive, pack a picnic, tachycardic. Blood cultures taken on 10/22 pending. Recommend ordering procalcitonin and CRP. Patient was put back on BiPAP/CPAP. -patient currently on Solu-Medrol, dexamethasone DC. Continue oxygen supplementation. Chest x-ray shows bilateral pulmonary opacities, pulmonary on board. Prognosis remains guarded. Chest x-ray taken on 11/16: No changes from previous imaging. Once the patient is stabilized, consider transferring the patient to long-term acute care. We will follow the patient as needed. No new recommendation at this time. -patient's is immunocompromised due to history chemotherapy/immunosuppressive drug use due to glomerular nephritis. Continue to monitor closely for any signs or symptoms of infection. Patient is on steroids. Has completed 2 week course of broad-spectrum antibiotic coverage. -medical management per primary team -continue monitor CBC and BMP -continue monitor for signs infection Plan of care discussed with Dr. Holland. Thank you for consultation. Physician Review: Patient Assessed, Agree with Above Assessment and Plan
--- NOTE | 2020-11-21 11:59 | RAD REPORT ---
EXAM DESCRIPTION: RAD - Chest Single View - 11/21/2020 11:29 am CLINICAL HISTORY: decrease O2 sat Chest pain. COMPARISON: Chest Single View dated 11/21/2020; Chest Single View dated 11/20/2020; Chest Single View dated 11/16/2020; Chest Single View dated 11/11/2020 FINDINGS: Portable technique limits examination quality. Moderate bilateral pulmonary opacities remain stable since comparative study. The heart is mildly enl arged in size. Right-sided venous catheter tip in SVC. IMPRESSION: Stable chest since earlier examination same date.
[2020-11-21] MEDS: CALCITROL 0.25 MCG CAP PO SCH (12:47)
[2020-11-21] MEDS: AMIODARONE HCL 900 MG in Dextrose 5%-Water 482 ML IV SCH (12:59)
[2020-11-21] MEDS ORDERED: NA CHLORIDE 0.9% 1,000 ML IV ONE ×2 (14:15→19:00)
[2020-11-21] MEDS: MAGIC MOUTHWASH 180 ML BTL PO PRN (14:35)
[2020-11-21] MEDS ORDERED: NA CHLORIDE 0.9% 1,000 ML ONE (14:39)
[2020-11-21] MEDS ORDERED: Pharmacy Consult 1 EA XX PRN (15:04)
[2020-11-21] MEDS ORDERED: CEFEPIME 1 GM/VIAL IV SCH (15:05)
--- NOTE | 2020-11-21 15:06 | P.PN ---
Subjective Date of Service: 11/21/20 Chief Complaint: Respiratory failure shock Condition worse . Deveolped Afib and low BP and increased O2 requirements Review of Systems General: Weakness Respiratory: Shortness of Breath Physical Examination - Vital Signs Temperature: 97.4 F Blood Pressure: 81/50 Pulse: 104 Respirations: 20 Pulse Ox (%): 98 - Physical Exam Other Physical/Emotional Findings: Physical exam not done d/t covid isolation Assessment & Plan - Problems (Diagnosis) (1) Pneumonia due to coronavirus disease 2019 Current Visit: Yes Status: Acute Plan: Resp failure and shock plus new onset Afib. Agree with fluid bolus reculture, CXRy ILD changes. Labs reviewed. bowen not eating Cultures orderd. Start on BS antiobiotics Add Cefepine and Vanc, procal pending, Add Diflucan IV Physician Review: Patient Assessed, Agree with Above Assessment and Plan
[2020-11-21] MEDS ORDERED: CEFEPIME/SWI 1gm 10 ML IVP SCH (15:30)
--- NOTE | 2020-11-21 15:52 | P.PN ---
Subjective Date of Service: 11/21/20 Chief Complaint: Respiratory failure shock Subjective: Worsening (hypotensive this morning, afib converted last night. pt reports feeling well, requiring more oxygen. denies pain, no nausea/vomiting, no diarrhea, no dysuria) Review of Systems 10-point ROS is otherwise unremarkable Physical Examination - Vital Signs Temperature: 97.4 F Blood Pressure: 81/50 Pulse: 104 Respirations: 20 Pulse Ox (%): 98 - Physical Exam Other Physical/Emotional Findings: Physical exam not done d/t covid isolation Assessment & Plan Physician Review Additional Text: Physical Exam General: Alert, In no apparent distress HEENT: normal conjunctiva, sclera anicteric Respiratory: on BIPAP now, nonlabored Cardiovascular: tachycardic with PVCs, no edema Gastrointestinal: Soft and benign, Non-distended, No tenderness Musculoskeletal: No joint tenderness Neuro/Psych: moving all extremities, normal affect, no focal findings Problem List Acute hypoxemic respiratory failure secondary to Covid 19 pneumonia new onset Afib with RVR NSTEMI Hypotension 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 -worsened today, afib during dialysis on 11/20, converted after initiation of amiodarone, continue drip. discussed with cardiology -hypotensive again this morning, responded somewhat to IVF, may be on dry side from dialysis/lasix, will discuss with nephrology -continue steroids, vitamin supplementation -HD/lasix per nephrology. on midodrine for hypotension -patient was on cellcept and immunocompromised. received merrem and vanc for ~2 weeks for concern of bacterial superinfection, antibiotics discontinued on 11/04 -patient may becoming septic - and that can be cause of hypotension as well. cultures, procal, CRP, UA ordered. restart broad spectrum antibiotics -initially planned for kidney biopsy, however was postponed due to unstable respiratory status. Eliquis resumed on 11/02 to cover COVID induced hypercoagulability. -Elevated troponin likely secondary to demand ischemia. patient has been having runs of nonsustained VT - mostly during or just after dialysis -approved for LTAC, however patient not stable for transfer at this time VTE: Eliquis Code: full Dispo: not stable for LTAC transfer at this time Time Spent Managing Pts Care (In Minutes): 35
[2020-11-21] MEDS ORDERED: VANCOMYCIN 1.25 GM in NA CHLORIDE 0.9% 250 ML IVPB ONE (16:00)
[2020-11-21] MEDS ORDERED: FLUCONAZOLE 400 MG IVPB 400 MG/200 ML BAG IV SCH (16:00)
[2020-11-21] MEDS ORDERED: D5W 1,000 ML IV SCH (17:00)
[2020-11-21] MEDS ORDERED: ALBUTEROL 2.5 MG/3 ML NEB SOL NEB PRN (18:00)
[2020-11-21 18:42] LABS: HBsAG Nonreactive (Nonreactive)
[2020-11-21] MEDS ORDERED: ACETAMINOPHEN 650MG/RECT SUPP PR ONE ×2 (19:00→21:26)
--- NOTE | 2020-11-21 20:37 | RAD REPORT ---
EXAM DESCRIPTION: RAD - Abdomen 1 View (KUB) - 11/21/2020 8:27 pm CLINICAL HISTORY: Device placement Dobhoff tube placement FINDINGS: The tip of a Dobhoff tube lies within the distal stomach.
--- NOTE | 2020-11-21 20:37 | RAD REPORT ---
EXAM DESCRIPTION: RAD - Chest Single View - 11/21/2020 8:26 pm CLINICAL HISTORY: Device placement PICC line placement . IMPRESSION: PICC line with its tip in the mid superior vena cava A dobhoff tube has been placed into the right mainstem bronchus.
[2020-11-21] MEDS ORDERED: MIDODRINE HCL 5 MG TABLET PO SCH (21:00)
[2020-11-21] MEDS ORDERED: ACETAMINOPHEN 650MG/RECT SUPP PR PRN (21:38)
[2020-11-21] MEDS ORDERED: ACETAMINOPHEN 325 MG TABLET FT PRN (23:08)
[2020-11-22] MEDS ORDERED: NA CHLORIDE 0.9% 250 ML IV ONE (01:41)
[2020-11-22] MEDS ORDERED: METRONIDAZOLE 500mg IVPB 500 MG/100 ML BAG IV SCH ×2 (01:50→19:57)
[2020-11-22] MEDS ORDERED: NA CHLORIDE 0.9% 250 ML ONE (02:00)
[2020-11-22] MEDS ORDERED: METRONIDAZOLE 500mg IVPB 500 MG/100 ML BAG IV ONE (02:12)
[2020-11-22] MEDS: NOREPINEPHRINE 4 MG in D5W 250 ML IV PRN ×2 (02:43→05:20)
[2020-11-22] MEDS ORDERED: NOREPINEPHRINE 4mg/D5W 250mL 4 MG/250 ML BAG IV ONE ×2 (02:58→05:34)
[2020-11-22] MEDS ORDERED: LORazepam 2 MG/ML VIAL IV ONE (04:14)
--- NOTE | 2020-11-22 04:20 | P.PN ---
Date of Service: 11/22/20 Patient has clinically deteriorated overnight. Patient's blood pressure has decreased s/p 1 L normal saline bolus, patient was started on Levophed with map around 65. Patient also did. From a respiratory standpoint, is now on BiPAP with maximum support and FiO2 100% saturating in the 60s to 70s persistently. Daughter was contacted about patient's status towards the eating of the shift and she did mention that he had spoken with her previously after multiple family members had fallen ill that he would not want to be on a ventilator. Patient also mentioned to multiple staff members throughout the evening that he did not want to be placed on a ventilator. His wishes for [id number] were addressed with the daughter who is power of corporate attorney who is agreeable, patient was made to be do not intubate. Patient's respiratory status did not improve and he appeared to be tiring out, for this reason daughter was allowed to come visit at bedside and see him. After prolonged discussion with daughter power of corporate attorney regarding patient's clinical status at this time decision was made to know go forward as to intubate/do not resuscitate, continue BiPAP and other supportive measures in addition to comfort measures as possible. Patient looks to be doing very poorly at this time, appears very tired, significantly hypoxic, hypotensive, tachycardic. Patient's demise appears imminent, family aware of this, making plans and calling additional family members at this time.
[2020-11-22 05:13] VITALS: TEMP 99.3
--- NOTE | 2020-11-22 05:38 | P.PN ---
Subjective Date of Service: 11/23/20 Chief Complaint: Respiratory failure Was hypotensive today & was noted to be hypoxic & was coughing when he drank fluids. 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 BP improved somewhat after 2L IV fliud bolus IV vasopressor if needed, to keep MAP > 65 Start D5W 30 cc/hr; to meet daily free water requirements; May switch D5W gtt to tube water flushes once dobhoff tube is in Hold lasix Monitor renal panel, I/O # PIGN MMF on hold d/t PNA # BPH Hx of prostate Ca s/p radiotx Cont flomax # Hypotension worsened today probably 2/2 pulmonary sepsis related to aspiration TSH& serum B12 wnl Has baseline hypotension suspect from autonomic neuropathy aggravated by sepsis Inc midodrine dose to 15 mg po tid Received 2L IV bolus today w/ some improvement in BP IV vasopressor if need to keep MAP > 65 Hold lasix Hx of Htn Sepsis workup/mngt per primary team # Respi failure 2/2 COVID PNA He is diuresed adequately at this point. He has persistent coarse bibasilar rales likely 2/2 pulmo fibrosis/interstitial lung dse from covid pna, rather than pulmo edema Mngt per Pulmonary service c/o Dr. Cat # Dysphagia Recommend to be NPO for now Agree w/ Dobhoff tube placement; may switch D5W gtt to tube water flushes 125 cc q6h when dobhoff in place # CHF Hold lasix d/t hypotension # Anemia Tsat low at 13% - defer IV iron therapy d/t acute infection B12 & folate not low TSH wnl Cont epogen # Hypocalcemia Improved Correction via HD & Ca supplement, & calcitriol & D suppl D3 suppl # HyperPO4 Phos now at goal Cont binder # Secondary hyperPTH Cont calcitriol 25OHD 19, low, cont high dose D3 suppl Physician Review: Patient Assessed, Agree with Above Assessment and Plan Physician Review Additional Text: Physical Exam General: Alert, In no apparent distress HEENT: normal conjunctiva, sclera anicteric Respiratory: on BIPAP now, nonlabored Cardiovascular: tachycardic with PVCs, no edema Gastrointestinal: Soft and benign, Non-distended, No tenderness Musculoskeletal: No joint tenderness Neuro/Psych: moving all extremities, normal affect, no focal findings Problem List Acute hypoxemic respiratory failure secondary to Covid 19 pneumonia new onset Afib with RVR NSTEMI Hypotension 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 -worsened today, afib during dialysis on 11/20, converted after initiation of amiodarone, continue drip. discussed with cardiology -hypotensive again this morning, responded somewhat to IVF, may be on dry side from dialysis/lasix, will discuss with nephrology -continue steroids, vitamin supplementation -HD/lasix per nephrology. on midodrine for hypotension -patient was on cellcept and immunocompromised. received merrem and vanc for ~2 weeks for concern of bacterial superinfection, antibiotics discontinued on 11/04 -patient may becoming septic - and that can be cause of hypotension as well. cultures, procal, CRP, UA ordered. restart broad spectrum antibiotics -initially planned for kidney biopsy, however was postponed due to unstable respiratory status. Eliquis resumed on 11/02 to cover COVID induced hypercoagulability. -Elevated troponin likely secondary to demand ischemia. patient has been having runs of nonsustained VT - mostly during or just after dialysis -approved for LTAC, however patient not stable for transfer at this time VTE: Eliquis Code: full Dispo: not stable for LTAC transfer at this time
[2020-11-22 06:23] LABS: Urine Appearance CLEAR (Clear); Urine Color YELLOW (Yellow)
[2020-11-22 06:24] LABS: Urine Bilirubin NEGATIVE (Negative); Urine Blood NEGATIVE (Negative); Urine Glucose NEGATIVE (Negative); Urine Protein 2+ (Negative); Urine Urobilinogen 0.2 mg/dL (0.2-1.0)
[2020-11-22 06:32] LABS: Urine Bacteria >50 /HPF (NONE SEEN); Urine Mucus 2+ /HPF (NONE SEEN); Urine RBC <5 /HPF (NONE SEEN)
[2020-11-22 06:33] LABS: Urine Yeast MANY (NONE SEEN)
[2020-11-22] MEDS ORDERED: NOREPINEPHRINE 8 MG in D5W 500 ML IV PRN (07:46)
[2020-11-22 08:27] LABS: Albumin 1.6 g/dL (3.4-5.0); Bilirubin Total 1.1 mg/dL (0.2-1.0); Ferritin 918.8 ng/mL (26-388); Magnesium 2.1 mg/dL (1.8-2.4); Potassium 5.3 mmol/L (3.5-5.1); Protein, Total 4.6 g/dL (6.4-8.2)
[2020-11-22 09:25] VITALS: O2SAT 66
[2020-11-22] MEDS ORDERED: VANCOMYCIN 500 MG in NA CHLORIDE 0.9% 100 ML IVPB SCH (15:45)
--- NOTE | 2020-11-22 17:34 | P.DS ---
Admission Date: 10/22/20 Discharge Date: 11/22/20 Disposition: Discharge Condition: Reason for Admission: Respiratory failure / COVID-19 Consultations: Cardiology - Dr. López/Caitlyn Nephrology - Dr. Diaz/Richard/Zulema/Sherif ID - Dr. Holladn Pulmonology - Dr. Cat General Surgery - Dr. Webster Procedures: Problem List Acute hypoxemic respiratory failure secondary to Covid 19 pneumonia Septic Shock paroxysmal Afib with RVR NSTEMI Hypotension 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 Brief History of Present Illness: 75-year-old male with past medical history of prostate cancer s/p prostatectomy, currently in remission, history of hypertension, GERD, CKD stage III follows with Nephrology admitted now because of progressive shortness of breath, fever,chills and cough since the last 3 days. Patient states son also have similar symptoms although patient is a very poor historian. On admission he was noted in the ED to have exertional SOB with hypoxia with O2 sat from 93% on room air to 87% post ambulation. His chest x-ray shows left base pneumonia superimposed on interstitial infiltrate. His covid 19 screen is positive. He has been admitted for left acquired pneumonia superimposed COVID-19 pneumonia. Hospital Course: Patient had prolonged hospitalization. He was initially treated with broad spectrum antibiotics for 2 weeks due to immunocompromised state. His renal function continued to worsen and he ultimately underwent dialysis catheter placement and required dialysis for the rest of his hospitalization. His hypoxemia worsened due to COVID-19 pneumonia requiring maximum BIPAP therapy. He eventually improved both from renal function (but still requiring dialysis) and from a respiratory standpoint, down to 7L nasal cannula. He was getting set up for transfer to LTAC, however, on the evening of 11/20, patient went into afib with RVR during dialysis. He converted back to sinus after initiation of amiodarone. He was fairly stable overnight, however in the morning he became significantly hypotensive. He was given IV fluids, underwent sepsis workup, started on broad-spectrum antibiotics. Despite all of these treatments, patient continued to deteriorate rapidly. He required maximum dose of Levophed to maintain MAPs >65, and continued to be hypoxemic with SpO2: 70s on maximum BiPAP therapy. The family was contacted and stated the patient wished to not be put on a ventilator. He continued on like this as a few more hours and eventually became more hypotensive and more hypoxic. The family had a meeting and decided to withdraw care. Patient at 0908 with family at bedside. Vital Signs/Physical Exam: pupils nonreactive No pulse, no respirations no edema no rash no movement no joint swelling Temp Pulse Resp BP Pulse Ox 99.3 F 69 18 73/41 L 65 L 11/22/20 05:38 11/22/20 08:00 11/22/20 08:00 11/22/20 08:00 11/22/20 08:00 Other Physical/Emotional Findings: Physical exam not done d/t covid isolation Laboratory Data at Discharge: WBC Cancelled 11/22/20 04:30 Hgb Cancelled 11/22/20 04:30 Hct Cancelled 11/22/20 04:30 Plt Count Cancelled 11/22/20 04:30 Sodium 141 mmol/L (136-145) 11/22/20 07:10 Potassium 5.3 mmol/L (3.5-5.1) H 11/22/20 07:10 BUN 78 mg/dL (7-18) H 11/22/20 07:10 Creatinine 4.31 mg/dL (0.55-1.3) H D 11/22/20 07:10 Glucose 115 mg/dL (74-106) H 11/22/20 07:10 Uric Acid 10.1 mg/dL (3.5-7.2) H 10/24/20 03:14 Phosphorus 5.3 mg/dL (2.5-4.9) H 11/21/20 04:46 Magnesium 2.1 mg/dL (1.8-2.4) 11/22/20 07:10 Total Bilirubin 1.1 mg/dL (0.2-1.0) H 11/22/20 07:10 AST 54 U/L (15-37) H 11/22/20 07:10 ALT 28 U/L (12-78) 11/22/20 07:10 Alkaline Phosphatase 46 U/L (45-117) 11/22/20 07:10 Troponin I 0.09 ng/mL (0.0-0.045) H 11/10/20 14:37 Home Medications: Tamsulosin HCl [Flomax] 0.4 mg PO DAILY 10/15/15 Furosemide [Lasix] 80 mg PO DAILY 10/25/18 allopurinoL [Zyloprim*] 100 mg PO DAILY 05/15/19 Aspirin 81 mg PO DAILY 08/08/19 Sodium Zirconium Cyclosilicate [Lokelma] 10 gm PO DAILY #15 powd.pack 01/18/20 Followup: Jaqueline Diaz MD [Primary Care Provider] - Time spent managing pt's care (in minutes): 60
[2020-11-23 06:52] VITALS: BP 73/41
== END 2020-11-22 11:05 | disposition expired | DRG 177 ==
LOC: ER 10:54 → ERHOLD 16:59 → 4TH 20:24 → 3RD-ICU 11-03 19:27
PROVIDERS: ADMIT Internal Medicine; ATTEND Hospitalist
PROC: 0JH63XZ Insertion of Tunneled Vascular Access Device into Chest Subcutaneous Tissue and Fascia, Percutaneous Approach (ICD-10-PCS; 2020-10-24)
PROC: 02HV33Z Insertion of Infusion Device into Superior Vena Cava, Percutaneous Approach (ICD-10-PCS; 2020-10-24)
PROC: B5181ZA Fluoroscopy of Superior Vena Cava using Low Osmolar Contrast, Guidance (ICD-10-PCS; 2020-10-24)
PROC: 5A1D70Z Performance of Urinary Filtration, Intermittent, Less than 6 Hours Per Day (ICD-10-PCS; 2020-10-28)
PROC: 5A09557 Assistance with Respiratory Ventilation, Greater than 96 Consecutive Hours, Continuous Positive Airway Pressure (ICD-10-PCS; principal; 2020-10-29)
PROC: 30233N1 Transfusion of Nonautologous Red Blood Cells into Peripheral Vein, Percutaneous Approach (ICD-10-PCS; 2020-11-11)
DX: U07.1 COVID-19 (principal); I50.33 Acute on chronic diastolic (congestive) heart failure; J12.82 Pneumonia due to coronavirus disease 2019; N17.0 Acute kidney failure with tubular necrosis; J96.01 Acute respiratory failure with hypoxia; I21.4 Non-ST elevation (NSTEMI) myocardial infarction; A41.89 Other specified sepsis; R65.21 Severe sepsis with septic shock; E44.0 Moderate protein-calorie malnutrition; I13.0 Hypertensive heart and chronic kidney disease with heart failure and stage 1 through stage 4 chronic kidney disease, or unspecified chronic kidney disease; N18.4 Chronic kidney disease, stage 4 (severe); E87.2 Acidosis; I47.1 Supraventricular tachycardia; M10.9 Gout, unspecified; K21.9 Gastro-esophageal reflux disease without esophagitis; Z68.26 Body mass index [BMI] 26.0-26.9, adult; Z85.46 Personal history of malignant neoplasm of prostate; Z90.49 Acquired absence of other specified parts of digestive tract; Z79.82 Long term (current) use of aspirin; Z79.899 Other long term (current) drug therapy; D63.1 Anemia in chronic kidney disease; E78.5 Hyperlipidemia, unspecified; N05.9 Unspecified nephritic syndrome with unspecified morphologic changes; G47.33 Obstructive sleep apnea (adult) (pediatric); N40.0 Benign prostatic hyperplasia without lower urinary tract symptoms; E21.1 Secondary hyperparathyroidism, not elsewhere classified; R77.8 Other specified abnormalities of plasma proteins; E87.6 Hypokalemia; D50.9 Iron deficiency anemia, unspecified; I25.10 Atherosclerotic heart disease of native coronary artery without angina pectoris; G90.9 Disorder of the autonomic nervous system, unspecified; E87.5 Hyperkalemia; T38.0X5A Adverse effect of glucocorticoids and synthetic analogues, initial encounter; D69.6 Thrombocytopenia, unspecified; I48.0 Paroxysmal atrial fibrillation
CPT/HCPCS: 0240U; 36415; 36430; 36569; 71045; 71046; 74018; 76000; 76770; 80048; 80053; 80069; 80202; 81001; 81003; 81015; 82043; 82274; 82306; 82533; 82550; 82570; 82607; 82652; 82728; 82746; 82805; 82947; 83036; 83520; 83540; 83605; 83735; 83880; 83970; 84100; 84145; 84156; 84165; 84443; 84466; 84484; 84550; 85014; 85018; 85025; 85044; 86021; 86038; 86140; 86160; 86225; 86317; 86430; 86704; 86705; 86706; 86850; 86900; 86901; 87040; 87070; 87077; 87086; 87088; 87186; 87205; 87340; 87389; 87522; 90935; 93005; 93306; 94002; 94003; 94640; 94660; 94760; 96361; 96365; 96375; 97116; 97161; 97530; 99285; C1752; J0282; J0456; J0690; J0692; J0696; J1450; J1644; J1650; J1815; J1940; J2150; J2185; J2370; J2704; J2916; J2920; J2930; J3010; J3370; J7030; J7040; J7050; J7060; J8540; P9016; P9047; Q4081; Q5105